=== PATIENT | male | born 1950 | race Hispanic/Latino ===

== ENCOUNTER → 2020-02-09 | Outpatient (CLI) | payer OTHER | END | disposition home or self-care (01) | LOC: SHCH 13:25 | PROVIDERS: ATTEND Internal Medicine Cardiovascular Disease | DX: I35.0 Nonrheumatic aortic (valve) stenosis (principal); Z95.2 Presence of prosthetic heart valve | CPT/HCPCS: 93306 ==

== ENCOUNTER → 2021-08-15 | Outpatient (CLI) | payer OTHER | END | disposition home or self-care (01) | LOC: SHCH 14:25 | PROVIDERS: ATTEND Internal Medicine Cardiovascular Disease | DX: I08.3 Combined rheumatic disorders of mitral, aortic and tricuspid valves (principal); Z95.3 Presence of xenogenic heart valve | CPT/HCPCS: 93306 ==

== ENCOUNTER 2024-07-29 09:00 | Emergency (ER) | payer OTHER ==
[~2024-07-29] VITALS: Ht 167.6 cm; Wt 63.5 kg
--- NOTE | 2024-07-29 09:27 | EKG ---
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
[2024-07-29 09:40] LABS: BASOPHILS # (AUTO) 0.02 K/uL (0.00-0.20); BASOPHILS % (AUTO) 0.4 % (0.0-5.0); EOSINOPHILS # (AUTO) 0.05 K/uL (0.00-0.70); HEMATOCRIT 39.2 % (42-54); IMMATURE GRANULOCYTE ABSOLUTE 0.01 K/uL (0-1); LYMPHOCYTES # (AUTO) 1.6 K/uL (1.0-4.8); LYMPHOCYTES % (AUTO) 30.8 % (21.0-51.0); MEAN CORPUSCULAR HEMOGLOBIN 31.3 pg (27.0-33.0); MEAN CORPUSCULAR HGB CONC 32.4 g/dL (32.0-36.0); MEAN CORPUSCULAR VOLUME 96.6 fL (79-99); MONOCYTES # (AUTO) 0.4 K/uL (0.1-1.0); NEUTROPHILS # (AUTO) 3.1 K/uL (1.8-7.7); NEUTROPHILS % (AUTO) 59.6 % (40.0-77.0); PLATELET COUNT (AUTO) 162 K/uL (130-400); RED BLOOD CELL COUNT(AUTO) 4.06 MIL/uL (4.50-6.20); RED CELL DISTRIBUTION WIDTH 15.1 % (11.0-15.5); WHITE BLOOD COUNT (AUTO) 5.3 K/uL (4.8-10.8)
--- NOTE | 2024-07-29 09:43 | HMCIMG ---
Exam Type: CT HEAD/BRAIN W/O CONTRAST Clinical Information: dizzy Comparison: None CT Dose Index (CTDI): 57.33 mGy Dose Length Product (DLP): 956.79 total mGy-cm Findings: The examination shows atrophy. There is low attenuation throughout the periventricular white matter locations, consistent with chronic small vessel ischemic changes. No acute intra- or extra-axial fluid collections are seen. There is no evidence of acute or chronic hemorrhage. There is no mass effect or shift of midline structures. There are no areas to suggest acute infarct. The skull windows show no significant abnormalities. IMPRESSION: 1. ATROPHY AND CHRONIC SMALL VESSEL ISCHEMIC CHANGES. This study was performed using dose reduction techniques to include automated exposure control and/or adjustment of the mA and/or kV according to patient size.
[2024-07-29] MEDS: LACTATED RINGERS 1000ML 1,000 ML IV ONE (09:46)
[2024-07-29 09:50] LABS: CREATININE 1.1 mg/dL (0.5-1.3)
--- NOTE | 2024-07-29 09:53 | ERN ---
General Chief Complaint: Dizzy/Light Headed Stated Complaint: DIZZINESS Time Seen by MD: 09:04 History of Present Illness Initial Comments 74-year-old male who presents for generalized weakness. According to family, yesterday he had an episode where he was possibly hallucinating. He said the saw things on the [place]. He had no other signs of stroke or no focal neurologic deficits. No slurring of words. The episode was brief. This morning he was back to his baseline mentation, but the family says that he was weaker than usual. The patient was no complaints. He answers all questions appropriately. He denies any headache or vision changes. He denies any focal neurologic deficits. Denies any dizziness. He denies any chest pain. Family and patient reports that he has been in his otherwise normal state of health recently. Allergies: Coded Allergies: No Known Allergies (Unverified Allergy, Unknown, 07/29/24) Past Medical History Past Medical History: High Cholesterol Past Surgical History: Other ROS Dictation VITAL SIGNS: Reviewed. GENERAL APPEARANCE: Alert, oriented x3, no acute distress, EYES: PERRL, pink conjunctivas, eyelid no trauma, anterior chamber clear. EARS: Pinnas intact and no signs of trauma or erythema. Ear canals clear and no discharge. TMs no erythema. NOSE: No discharge, no bleeding. OROPHARYNX: Mouth normal, teeth no caries, tongue pink. Pharynx clear, no erythema. Tonsils no exudates, no abscesses noted. Mucous membrane moist. NECK: Supple, non-tender, no thyromegaly, no masses, no JVD, no bruits. BREAST: Deferred. CHEST: No tenderness, no crepitus, no paradoxical movement, no retractions. LUNGS: Clear, well-ventilated, symmetric, no rales, no wheezing, no rhonchi, no stridor, good breath sounds bilaterally. HEART: Regular rate, regular rhythm, no murmur, no gallops. VASCULAR: No peripheral edema. ABDOMEN: Soft, positive bowel sounds, nondistended, no guarding, nontender, no rebound, no masses no hepatomegaly, no splenomegaly, no Ortez's sign, no hernias. RECTAL: Deferred. GENITAL: Deferred. NEUROLOGICAL: Normal speech, gross motor function intact, gross sensory function intact. MUSCULOSKELETAL: Neck nontender, full range of motion, back nontender, full range of motion. EXTREMITIES: Nontender, full range of motion. SKIN: Color pink, dry, no turgor, no rash, no lacerations, no abrasions, no contusions. LYMPHATICS: Deferred. Physical Exam Physical Exam Dictation CONSTITUTIONAL: No chills, no fever, no weakness, no diaphoresis, no malaise. HEAD/FACE: No signs of trauma. EENT: No eye pain, no blurred vision, no tearing, no double vision, no ear pain, no ear discharge, no nose pain, no nasal congestion, no throat pain, no throat swelling, no mouth pain. RESPIRATORY: No cough, no orthopnea, no SOB, no stridor, no wheezing. CARDIOVASCULAR: No chest pain, no edema, no palpitations, no syncope. GASTROINTESTINAL/ABDOMINAL: No abdominal pain, no constipation, no diarrhea, no nausea, no vomiting. GENITOURINARY: No abnormal discharge, no dysuria, no frequent urination, no hematuria. No complaints of pain in the genitals. MUSCULOSKELETAL: No back pain, no gout, no joint pain, no joint swelling, no muscle pain, no muscle stiffness, no neck pain. INTEGUMENTARY: No change in color, no change in hair/nails, no dryness, no lesion, no lumps, no rash. NEUROLOGICAL/PSYCH: Weakness dizziness HEMATOLOGIC/LYMPHATIC: Not anemic, no history of blood clots, no apparent bleeding, no bruising, glands not swollen. All Systems Negative, Except as Noted. Results Laboratory and Microbiology Lab and Micro Result Laboratory Tests Test 07/29/24 09:32 07/29/24 11:37 White Blood Count 5.3 K/uL (4.8-10.8) Red Blood Count 4.06 MIL/uL (4.50-6.20) L Hemoglobin 12.7 g/dL (14.0-18.0) L Hematocrit 39.2 % (42-54) L Mean Corpuscular Volume 96.6 fL (79-99) Mean Corpuscular Hemoglobin 31.3 pg (27.0-33.0) Mean Corpuscular Hemoglobin Concent 32.4 g/dL (32.0-36.0) Red Cell Distribution Width 15.1 % (11.0-15.5) Platelet Count 162 K/uL (130-400) Mean Platelet Volume 9.8 fL (7.5-10.5) Immature Granulocyte % (Auto) 0.2 % (0-1) Neutrophils (%) (Auto) 59.6 % (40.0-77.0) Lymphocytes (%) (Auto) 30.8 % (21.0-51.0) Monocytes (%) (Auto) 8.0 % (3.0-13.0) Eosinophils (%) (Auto) 1.0 % (0.0-8.0) Basophils (%) (Auto) 0.4 % (0.0-5.0) Neutrophils # (Auto) 3.1 K/uL (1.8-7.7) Lymphocytes # (Auto) 1.6 K/uL (1.0-4.8) Monocytes # (Auto) 0.4 K/uL (0.1-1.0) Eosinophils # (Auto) 0.05 K/uL (0.00-0.70) Basophils # (Auto) 0.02 K/uL (0.00-0.20) Absolute Immature Granulocyte (auto 0.01 K/uL (0-1) Nucleated Red Blood Cells 0.0 % (0.0-0.19) Sodium Level 140 mmol/L (136-145) Potassium Level 4.0 mmol/L (3.5-5.1) Chloride Level 102 mmol/L (101-111) Carbon Dioxide Level 33 mmol/L (21-32) H Blood Urea Nitrogen 12 mg/dL (7-18) Creatinine 1.1 mg/dL (0.5-1.3) Glomerular Filtration Rate Calc 71 mL/min (>90) Random Glucose 206 mg/dL (70-105) H Lactic Acid Level 1.3 mmol/L (0.8-2.5) Total Calcium 9.2 mg/dL (8.5-10.1) Total Creatine Kinase 151 U/L (21-232) Troponin I High Sensitivity 13.2 ng/L (4-75) Urine Color COLORLESS (YELLOW) Urine Appearance CLEAR (CLEAR) Urine pH 7.0 (5.0-8.0) Urine Specific [place] 1.005 (1.001-1.031) Urine Protein NEGATIVE mg/dL (NEGATIVE) Urine Glucose (UA) 200 mg/dL (NEGATIVE) H Urine Ketones NEGATIVE mg/dL (NEGATIVE) Urine Occult Blood NEGATIVE (NEGATIVE) Urine Nitrate NEGATIVE (NEGATIVE) Urine Bilirubin NEGATIVE mg/dL (NEGATIVE) Urine Urobilinogen 0.2 mg/dL (0.2-1.0) Urine Leukocyte Esterase NEGATIVE Rojelio/uL Urine RBC 0-1 /HPF (0-1) Urine WBC 0-1 /HPF (0-1) Urine Squamous Epithelial Cells RARE /HPF (0-2) Urine Bacteria None /HPF (None Seen) MDM CC: Episode of dizziness Historian: Patient and family Comorbidities: Advanced age, dyslipidemia, likely mild dementia Differential diagnosis: Electrolyte abnormalities, ACS, dehydration, other Vital signs: Stable, remained stable in the ER Clinical exam is unremarkable. Cranial nerves are intact no signs of stroke. He was GCS 15 currently. cardiac exam is unremarkable. EKG: Sinus rhythm rate of 80 left axis deviation good R-wave progression. Left bundle-branch block morphology. No STEMI. Independently interpreted by me. Labs including a CBC, BNP, lactic acid, CK, troponin, urinalysis are all unremarkable CT head without contrast was independently interpreted by me. Unremarkable. Chest x-ray is unremarkable independent interpretation. Patient received IV fluids here in the ER. I did offer to admit the patient and observe him since he was having a dizziness unknown origin, but patient reports up with a fluid bolus he was ambulatory is walking around the department he reports he feels much better. He wants to go h ome. He was no concerning findings on his workup right now. We will DC. ED Course Orders Procedure Category Date Status Time Cardiac Panel LAB 07/29/24 Complete 09:13 Cbc With Differential LAB 07/29/24 Complete 09:13 Basic Metabolic Panel LAB 07/29/24 Complete 09:13 Urinalysis Profile LAB 07/29/24 Complete 09:13 Lactated Ringers PHA 07/29/24 Complete 1000ml (Lactated 09:30 12 Lead Ekg Tracing- EKG 07/29/24 Resulted Technical 09:13 Lactic Acid LAB 07/29/24 Complete 09:13 Blood Cult AMRITA 07/29/24 In Process 09:13 Ct Head/Brain W/O CT 07/29/24 Resulted Contrast 09:13 Chest 1vw RAD 07/29/24 Resulted 10:26 Current Medications Medications (Trade) Dose Ordered Sig/Ann Marie Route PRN Reason Start Time Stop Time Status Last Admin Dose Admin Lactated Ringer's 1,000 ml @ 0 mls/hr ONCE ONCE IV 4/12/25 09:30 07/29/24 09:31 DC 07/29/24 09:46 Vital Signs Date Time Temp Pulse Resp B/P (MAP) Pulse Ox O2 Delivery O2 Flow Rate FiO2 07/29/24 11:53 98.1 79 16 153/82 98 Room Air* 0 21 07/29/24 11:52 98.2 55 14 98/52 96 Room Air* 0 21 07/29/24 09:47 98.2 80 16 98 Room Air* 0 21 07/29/24 09:02 97.3 81 20 183/82 99 Room Air DX & DISP Disposition: Discharge Departure Impression: Primary Impression: Dizziness Condition: Stable Additional Instructions: Your vital signs are stable. Your blood work is stable. The chest x-ray and EKG are normal. The CT scan of the brain is normal. Please follow up with your primary doctor. Return to the emergency department as needed. Referrals: KEL RIOS (PCP) HONORIO DISLA DO Jul 29, 2024 09:53
--- NOTE | 2024-07-29 11:24 | HMCIMG ---
Exam Type: CHEST 1VW Clinical Information: dizzy Comparison: None Findings: The lungs are clear of infiltrates. The heart is normal in size. The bony and soft tissue structures of the chest are unremarkable. Impression: Clear lungs.
[2024-07-29 11:53] VITALS: BP 153/82; PULSE 79; RESP 16; TEMP 98.1; O2SAT 98
[2024-07-29 12:12] LABS: APPEARANCE,URINE CLEAR (CLEAR); BILIRUBIN,URINE NEGATIVE (NEGATIVE); COLOR,URINE COLORLESS (YELLOW); GLUCOSE, URINE (UA) 200 mg/dL (NEGATIVE); KETONES,URINE NEGATIVE (NEGATIVE); LEUKOCYTE ESTERASE ,URINE NEGATIVE Leu/uL (NEGATIVE); NITRATE,URINE NEGATIVE (NEGATIVE); OCCULT BLOOD,URINE NEGATIVE (NEGATIVE); PROTEIN,URINE NEGATIVE (NEGATIVE); UROBILINOGEN,URINE 0.2 mg/dL (0.2-1.0)
[2024-07-29 12:25] LABS: ADD UA MICROSCOPIC YES
[2024-07-29 12:34] LABS: RBC,URINE 0-1 /HPF (0-1); SQUAMOUS EPITHELIAL CELL,UR RARE /HPF (0-2); WBC,URINE 0-1 /HPF (0-1)
== END 2024-07-29 12:20 | disposition home or self-care (01) ==
LOC: EDH 09:00
DX: R42 Dizziness and giddiness (principal); R53.1 Weakness; E78.00 Pure hypercholesterolemia, unspecified
CPT/HCPCS: 99285; 96360; 70450; 71045; 82550; 84484; 80048; 85025; 87040 ×2; 83605; 81001; 36415; 93005; J7120

== ENCOUNTER 2024-10-05 00:27 | Inpatient (IN) | payer OTHER ==
[~2024-10-05] VITALS: Ht 167.6 cm; Wt 67.1 kg
[~2024-10-05 00:27] MED LIST: ASPI-1443 PO; ATOR40TA69 PO; DAPA10TA PO; DONE5TAB33 PO; GABA300C PO; LISI5TAB21 PO; MECO10005 PO; METF-446 PO; PIOG30TA70 PO; PRED20TA3 PO
[2024-10-05] MEDS ORDERED: acetaMINOPHEN 650 MG/20.3 ML UDCUP PEG ONE (01:00)
[2024-10-05] MEDS: 0.9%NACL 1000ML 2,040 ML IV ONE (01:07)
[2024-10-05] MEDS: cefTRIAXone 1G VIAL IVPB ONE (01:07)
[2024-10-05 01:09] LABS: RAPID GROUP A STREP negative (NEGATIVE)
--- NOTE | 2024-10-05 01:11 | ERN ---
General Chief Complaint: Altered Mental Status Stated Complaint: FEVER, ALTERED MENTAL STATUS Time Seen by MD: 00:49 History of Present Illness Initial Comments Patient is a 74-year-old male with a history of hypercholesterolemia hypertension neuropathy dementia and diabetes who comes in because of an inability to stand and decreased mental acuity per family members. When he arrived in the ED he was noted to be febrile and tachycardic and was declared a sepsis alert. Patient is answering questions and following commands on arrival in the ED. He was given 800 cc of IV fluids in transit. Past medical history includes a September 21 admission to this hospital for a TIA associated with left-sided weakness. Timing/Duration: 24 hours Allergies: Coded Allergies: No Known Allergies (Unverified Allergy, Unknown, 07/29/24) Home Meds Active Scripts Prednisone (Prednisone) 20 Mg Tablet, 40 MG PO DAILY, #7 TAB Prov:TIMOTHY VENEGAS MD 09/28/24 Reported Medications Mecobalamin (B12 Active) 1,000 Mcg Tab.chew, 1 TAB PO DAILY for 30 Days, #30 TAB 0 Refills 09/22/24 Aspirin (Aspirin EC) 81 Mg Tablet.dr, 81 MG PO DAILY, TAB 09/22/24 Dapagliflozin Propanediol (Farxiga) 10 Mg Tablet, 10 MG PO DAILY, TAB 09/22/24 Atorvastatin Calcium (LIPITOR) 40 Mg Tablet, 40 MG PO HS for CHOLESTEROL, TAB 09/22/24 Lisinopril (Lisinopril) 5 Mg Tablet, 5 MG PO DAILY for HIGH BLOOD PRESSURE, TAB 09/22/24 Pioglitazone HCl (Pioglitazone HCl) 30 Mg Tablet, 30 MG PO DAILY, TAB 09/22/24 Gabapentin (Neurontin) 300 Mg Capsule, 300 MG PO BID for NEUROPATHY, CAP 09/22/24 Donepezil HCl (Donepezil HCl) 5 Mg Tablet, 5 MG PO HS for DEMENTIA, TAB 09/22/24 Metformin HCl (Metformin HCl) 1,000 Mg Tablet, 1000 MG PO BID for DIABETES, TAB 09/22/24 Past Medical History Past Medical History: Diabetes-Type II, High Cholesterol, Heart Disease, Hypertension Past Surgical History: CABG Surgical History Other: BACK SURGERY Constitutional: (+) fever EENTM: (-) eye pain, (-) blurred vision, (-) tearing, (-) double vision, (-) ear pain, (-) ear discharge, (-) nose pain, (-) nose congestion, (-) throat pain, (-) Throat swelling, (-) mouth pain, (-) tooth pain, (-) mouth swelling, (-) other documentation Respiratory: (-) cough, (-) orthopnea, (-) short of breath, (-) stridor, (-) wheezing, (-) other documentation Cardiovascular: (-) chest pain, (-) edema, (-) palpitations, (-) syncope, (-) dyspnea on exertion, (-) other documentation Gastrointestinal/Abdominal: (-) nausea, (-) vomiting, (-) diarrhea, (-) abdominal pain, (-) abdominal distention, (-) constipation, (-) rectal bleeding, (-) dark stool/melena, (-) other documentation Musculoskeletal: (-) Neck pain, (-) back pain, (-) Flank Pain, (-) joint pain, (-) joint swelling, (-) muscle pain, (-) muscle stiffness, (-) gout, (-) other documentation Skin: (-) laceration, (-) contusion, (-) abrasion, (-) abscess, (-) rash, (-) change in color, (-) change in hair, (-) change in nails, (-) diaphoresis, (-) dryness, (-) other documentation Neuro: (+) altered mental status Psych: (-) depression, (-) suicidal ideation, (-) anxiety, (-) emotional problems, (-) auditory hallucinations, (-) visual hallucinations Physical Exam General Appearance: (+) no apparent distress Orientation: (+) alert Orientation Comment Patient knows he is in the hospital patient follows commands answers questions. 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 nml as tested IVF Sepsis Management IVF Sepsis Management BMI >30kg/m2?: No IVF calculated by IBW?: No Results Laboratory and Microbiology Lab and Micro Result Laboratory Tests Test 10/05/24 00:57 10/05/24 00:58 10/05/24 02:15 10/05/24 02:39 White Blood Count 9.7 K/uL (4.8-10.8) Red Blood Count 4.15 MIL/uL (4.50-6.20) L Hemoglobin 13.2 g/dL (14.0-18.0) L Hematocrit 39.3 % (42-54) L Mean Corpuscular Volume 94.7 fL (79-99) Mean Corpuscular Hemoglobin 31.8 pg (27.0-33.0) Mean Corpuscular Hemoglobin Concent 33.6 g/dL (32.0-36.0) Red Cell Distribution Width 14.4 % (11.0-15.5) Platelet Count 96 K/uL (130-400) L Mean Platelet Volume 10.4 fL (7.5-10.5) Immature Granulocyte % (Auto) 0.6 % (0-1) Neutrophils (%) (Auto) 90.2 % (40.0-77.0) H Lymphocytes (%) (Auto) 6.1 % (21.0-51.0) L Monocytes (%) (Auto) 2.8 % (3.0-13.0) L Eosinophils (%) (Auto) 0.2 % (0.0-8.0) Basophils (%) (Auto) 0.1 % (0.0-5.0) Neutrophils # (Auto) 8.7 K/uL (1.8-7.7) H Lymphocytes # (Auto) 0.6 K/uL (1.0-4.8) L Monocytes # (Auto) 0.3 K/uL (0.1-1.0) Eosinophils # (Auto) 0.02 K/uL (0.00-0.70) Basophils # (Auto) 0.01 K/uL (0.00-0.20) Absolute Immature Granulocyte (auto 0.06 K/uL (0-1) Nucleated Red Blood Cells 0.0 % (0.0-0.19) White Cell Morphology Comment CONSISTENT W/DIFF Platelet Morphology PLT CLUMPS PRESENT Sodium Level 136 mmol/L (136-145) Potassium Level 4.6 mmol/L (3.5-5.1) Chloride Level 97 mmol/L (101-111) L Carbon Dioxide Level 27 mmol/L (21-32) Blood Urea Nitrogen 24 mg/dL (7-18) H Creatinine 1.3 mg/dL (0.5-1.3) Glomerular Filtration Rate Calc 58 mL/min (>90) Random Glucose 176 mg/dL (70-105) H Lactic Acid Level 2.5 mmol/L (0.8-2.5) 1.4 mmol/L (0.8-2.5) Total Calcium 9.0 mg/dL (8.5-10.1) Total Creatine Kinase 86 U/L (21-232) # Troponin I High Sensitivity 36 ng/L (4-75) Influenza Type A Antigen Negative For Type A Influenza Type B Antigen Negative For Type B SARS-CoV-2 Antigen (Rapid) PRESUMPTIVE NEGATIVE Group A Streptococcus Rapid negative (NEGATIVE) Urine Color LIGHT-YELLOW (YELLOW) Urine Appearance CLEAR (CLEAR) Urine pH 6.5 (5.0-8.0) Urine Specific [place] 1.035 (1.001-1.031) Urine Protein 50 mg/dL (NEGATIVE) H Urine Glucose (UA) >=1000 mg/dL (NEGATIVE) H Urine Ketones 40 mg/dL (NEGATIVE) H Urine Occult Blood NEGATIVE (NEGATIVE) Urine Nitrate NEGATIVE (NEGATIVE) Urine Bilirubin NEGATIVE mg/dL (NEGATIVE) Urine Urobilinogen 2.0 mg/dL (0.2-1.0) H Urine Leukocyte Esterase NEGATIVE Rojelio/uL Urine RBC 0-1 /HPF (0-1) Urine WBC 0-1 /HPF (0-1) Urine Bacteria RARE /HPF (None Seen) Test 10/05/24 04:33 10/05/24 04:52 Lactic Acid Level 1.3 mmol/L (0.8-2.5) Procalcitonin 1.69 ng/mL (0.05-0.5) H White Blood Count 13.2 K/uL (4.8-10.8) #H Red Blood Count 3.58 MIL/uL (4.50-6.20) L Hemoglobin 11.2 g/dL (14.0-18.0) L Hematocrit 34.4 % (42-54) L Mean Corpuscular Volume 96.1 fL (79-99) Mean Corpuscular Hemoglobin 31.3 pg (27.0-33.0) Mean Corpuscular Hemoglobin Concent 32.6 g/dL (32.0-36.0) Red Cell Distribution Width 14.5 % (11.0-15.5) Platelet Count 88 K/uL (130-400) L Mean Platelet Volume 10.2 fL (7.5-10.5) Immature Granulocyte % (Auto) 0.8 % (0-1) Neutrophils (%) (Auto) 86.9 % (40.0-77.0) H Lymphocytes (%) (Auto) 5.1 % (21.0-51.0) L Monocytes (%) (Auto) 7.0 % (3.0-13.0) Eosinophils (%) (Auto) 0.0 % (0.0-8.0) Basophils (%) (Auto) 0.2 % (0.0-5.0) Neutrophils # (Auto) 11.5 K/uL (1.8-7.7) H Lymphocytes # (Auto) 0.7 K/uL (1.0-4.8) L Monocytes # (Auto) 0.9 K/uL (0.1-1.0) Eosinophils # (Auto) 0.00 K/uL (0.00-0.70) Basophils # (Auto) 0.02 K/uL (0.00-0.20) Absolute Immature Granulocyte (auto 0.10 K/uL (0-1) Nucleated Red Blood Cells 0.0 % (0.0-0.19) Sodium Level 136 mmol/L (136-145) Potassium Level 3.9 mmol/L (3.5-5.1) Chloride Level 103 mmol/L (101-111) Carbon Dioxide Level 23 mmol/L (21-32) Blood Urea Nitrogen 22 mg/dL (7-18) H Creatinine 1.2 mg/dL (0.5-1.3) Glomerular Filtration Rate Calc 64 mL/min (>90) Random Glucose 137 mg/dL (70-105) H Total Calcium 7.8 mg/dL (8.5-10.1) L Total Bilirubin 0.5 mg/dL (0.2-1.0) Aspartate Amino Transf (AST/SGOT) 18 U/L (10-37) Alanine Aminotransferase (ALT/SGPT) 17 U/L (12-78) Alkaline Phosphatase 66 U/L (50-136) Lactate Dehydrogenase 207 U/L (81-234) C-Reactive Protein, Quantitative 81.30 mg/L (0.5-3.0) H Total Protein 5.7 g/dL (6.0-8.3) L Albumin 2.8 g/dL (3.5-5.0) L MDM MDM: Differential diagnosis: CVA, TIA, dehydration, heat stroke, UTI, upper respiratory tract infection, intra-abdominal catastrophe, Rationale: Tests considered and ordered secondary to shared decision making include: Previous outside records reviewed: Old ER visits. Risk of complication and/or morbidity or mortality of patient management: None Medications-Per medication reconciliation Need for hospitalization: Patient does meet criteria for hospitalization. Need for emergency major/minor surgery: No There are no social concerns with this patient. Prescription drug management Prescriptions will include symptomatic care Patient's prior external medical records from other ER visits were reviewed by me as indicated. Prior testing and results from previous visits were reviewed. Prior tests were taken into account with medical decision making and resource utilization, independent historian/historians were used to obtain complete medical history. I independently interpreted the test that were performed, results were reviewed by me and considered findings on radiology if ordered. Sepsis protocol orders written for antibiotics written for patient written for full 30 cc/kilogram resuscitation. Initial serum lactate comes back 2.6 repeat lactate ordered. Repeat lactate after 2 L of fluid is normal. WBC is normal but there is a large left shift and high ratio of neutrophils two lymphocytes suggestive of heat stroke. Patient's nasal swabs are negative, patient's chest x-ray is normal, patient's urine is normal. Given lack of a source for patient's sepsis I have ordered a CT scan of the patient's head without contrast and abdomen with contrast. Patient is requiring pressor support to maintain an adequate blood pressure. Bedside ultrasound showed his IVC of two cm. Since the patient has arrived at the hospital till now he is alert oriented answers questions and follows commands. I have called the hospitalist to admit the patient and Total critical care time was 33 minutes. Excluding time for procedures. Management of critically ill patient with concern for acute decompensation. Management included interpretation of laboratory values and imaging, hemodynamics, time for consultation with consultants and admitting physician. Has been consulted. ED Course Orders Procedure Category Date Status Time Cbc With Differential LAB 10/05/24 Complete 00:49 Blood Cult AMRITA 10/05/24 In Process 00:49 Urinalysis Profile LAB 10/05/24 Complete 00:49 Culture Urine AMRITA 10/05/24 In Process 00:49 0.9%Nacl 1000ml (Ns PHA 10/05/24 Complete 1000ml) 01:00 Creatine Kinase, Total LAB 10/05/24 Complete 00:49 Troponin I High LAB 10/05/24 Complete Sensitivity 00:49 Lactic Acid LAB 10/05/24 Complete 00:49 Basic Metabolic Panel LAB 10/05/24 Complete 00:49 Ceftriaxone 1g Vial PHA 10/05/24 Complete (Rocephine 1g Inj) 01:00 Chest 1vw RAD 10/05/24 Taken 00:49 Acetaminophen 650mg PHA 10/05/24 Complete Elixir (Tylenol 650m 01:00 Influenza Type A & B, LAB 10/05/24 Complete Rapid 00:49 Rapid (Group A Strep) LAB 10/05/24 Complete 00:49 Covid19 (Sars Antigen LAB 10/05/24 Complete Rapid) 00:49 Acetaminophen 325 Tab PHA 10/05/24 Complete (Tylenol 325mg Tab 01:30 Lactic Acid LAB 10/05/24 Complete 02:37 Norepinephrin 4mg/Ns PHA 10/05/24 In Process 250ml (Levophed 4mg 03:00 Norepinephrin 4mg/Ns PHA 10/05/24 Complete 250ml (Levophed 4mg 03:00 Norepinephrin 4mg/Ns PHA 10/05/24 Complete 250ml (Levophed 4mg 02:45 Lactic Acid (Removed) LAB 10/05/24 Complete 04:13 0.9%Nacl 1000ml (Ns PHA 10/05/24 Complete 1000ml) 04:30 Procalcitonin LAB 10/05/24 Complete 04:29 Cbc With Differential LAB 10/05/24 Complete 04:41 Ct Head/Brain W/O CT 10/05/24 Taken Contrast 05:08 Ct Abdomen/Pelvis CT 10/05/24 Taken W/Wo Contras 05:08 Current Medications Medications (Trade) Dose Ordered Sig/Ann Marie Route PRN Reason Start Time Stop Time Status Last Admin Dose Admin Acetaminophen (TYLenol 325MG TAB) 650 mg ONCE ONCE PO 10/05/24 01:30 10/05/24 01:31 DC 10/05/24 01:16 Acetaminophen (TYLenol 650MG ELIXIR) 650 mg ONCE ONCE PEG 10/05/24 01:00 10/05/24 01:08 DC Ceftriaxone Sodium (ROCEphine 1G INJ) 1 gm ONCE ONCE IVPB 10/05/24 01:00 10/05/24 01:01 DC 10/05/24 01:07 Norepinephrine 250 ml @ As Directed STK-MED ONCE IV 10/05/24 02:45 10/05/24 02:45 DC Norepinephrine 250 ml @ 0 mls/hr PROTOCOL IV 10/05/24 03:00 10/05/24 02:57 DC Norepinephrine 250 ml @ 0 mls/hr PROTOCOL IV 10/05/24 03:00 11/04/24 02:59 10/05/24 03:01 Sodium Chloride 1,000 ml @ 0 mls/hr ONCE ONCE IV 10/05/24 04:30 10/05/24 04:31 DC 10/05/24 04:29 Sodium Chloride 2,040 ml @ 680 mls/hr ONCE ONCE IV 10/05/24 01:00 10/05/24 03:59 DC 10/05/24 01:07 Vital Signs Date Time Temp Pulse Resp B/P (MAP) Pulse Ox O2 Delivery O2 Flow Rate FiO2 10/05/24 05:25 88 21 122/55 98 Room Air* 0 10/05/24 04:20 90 13 125/56 99 Room Air* 0 10/05/24 03:20 99.7 93 19 118/55 99 Room Air* 0 10/05/24 03:16 92 21 125/65 98 Room Air* 0 10/05/24 03:01 72/40 10/05/24 02:45 95 19 72/40 98 Room Air* 0 10/05/24 01:50 114 17 92/55 97 Room Air* 0 10/05/24 01:20 123 23 104/60 97 Room Air* 0 10/05/24 01:16 102.9 10/05/24 01:05 102.9 124 20 131/67 96 Room Air* 0 21 10/05/24 00:29 125 22 126/74 96 Room Air 0 DX & DISP Disposition: Inpatient Departure Impression: Primary Impression: Sepsis Additional Impression: Heat stroke Condition: Stable Referrals: SELF,REFERRAL (PCP) ROCKY FLORES MD Oct 05, 2024 01:11
[2024-10-05 01:15] LABS: BASOPHILS # (AUTO) 0.01 K/uL (0.00-0.20); BASOPHILS % (AUTO) 0.1 % (0.0-5.0); EOSINOPHILS # (AUTO) 0.02 K/uL (0.00-0.70); EOSINOPHILS % (AUTO) 0.2 % (0.0-8.0); HEMATOCRIT 39.3 % (42-54); IMMATURE GRANULOCYTE ABSOLUTE 0.06 K/uL (0-1); LYMPHOCYTES # (AUTO) 0.6 K/uL (1.0-4.8); LYMPHOCYTES % (AUTO) 6.1 % (21.0-51.0); MEAN CORPUSCULAR HEMOGLOBIN 31.8 pg (27.0-33.0); MEAN CORPUSCULAR HGB CONC 33.6 g/dL (32.0-36.0); MEAN CORPUSCULAR VOLUME 94.7 fL (79-99); MONOCYTES # (AUTO) 0.3 K/uL (0.1-1.0); MONOCYTES % (AUTO) 2.8 % (3.0-13.0); NEUTROPHILS # (AUTO) 8.7 K/uL (1.8-7.7); NEUTROPHILS % (AUTO) 90.2 % (40.0-77.0); PLATELET COUNT (AUTO) 96 K/uL (130-400); RED BLOOD CELL COUNT(AUTO) 4.15 MIL/uL (4.50-6.20); RED CELL DISTRIBUTION WIDTH 14.4 % (11.0-15.5); WHITE BLOOD COUNT (AUTO) 9.7 K/uL (4.8-10.8)
[2024-10-05 01:16] VITALS: TEMP 102.9
[2024-10-05] MEDS: acetaMINOPHEN 325 MG TAB PO ONE (01:16)
[2024-10-05 01:22] LABS: CREATININE 1.3 mg/dL (0.5-1.3); POTASSIUM 4.6 mmol/L (3.5-5.1)
[2024-10-05 01:24] LABS: INFLUENZA TYPE A Negative For Type A (NEGATIVE); INFLUENZA TYPE B Negative For Type B (NEGATIVE)
[2024-10-05 01:35] LABS: PLATELET MORPHOLOGY PLT CLUMPS PRESENT; WBC MORPHOLOGY CONSISTENT W/DIFF
[2024-10-05 01:36] LABS: COVID19 (SARS ANTIGEN RAPID) PRESUMPTIVE NEGATIVE (NEGATIVE)
[2024-10-05 02:27] LABS: ADD UA MICROSCOPIC YES; APPEARANCE,URINE CLEAR (CLEAR); BILIRUBIN,URINE NEGATIVE (NEGATIVE); COLOR,URINE LIGHT-YELLOW (YELLOW); GLUCOSE, URINE (UA) >=1000 mg/dL (NEGATIVE); KETONES,URINE 40 mg/dL (NEGATIVE); LEUKOCYTE ESTERASE ,URINE NEGATIVE Leu/uL (NEGATIVE); NITRATE,URINE NEGATIVE (NEGATIVE); OCCULT BLOOD,URINE NEGATIVE (NEGATIVE); PH,URINE 6.5 (5.0-8.0); PROTEIN,URINE 50 mg/dL (NEGATIVE)
[2024-10-05 02:28] LABS: BACTERIA,URINE RARE /HPF (None Seen); RBC,URINE 0-1 /HPF (0-1); WBC,URINE 0-1 /HPF (0-1)
[2024-10-05] MEDS ORDERED: NOREPINEPHRIN 4MG/NS 250ML 250 ML IV SCH (03:00)
[2024-10-05] MEDS: NOREPINEPHRIN 4MG/NS 250ML 250 ML IV SCH (03:01)
[2024-10-05] MEDS: NOREPINEPHRIN 4MG/NS 250ML 250 ML IV ONE (03:01)
[2024-10-05] MEDS: 0.9%NACL 1000ML 1,000 ML IV ONE (04:29)
[2024-10-05 05:04] LABS: BASOPHILS # (AUTO) 0.02 K/uL (0.00-0.20); BASOPHILS % (AUTO) 0.2 % (0.0-5.0); HEMATOCRIT 34.4 % (42-54); LYMPHOCYTES # (AUTO) 0.7 K/uL (1.0-4.8); LYMPHOCYTES % (AUTO) 5.1 % (21.0-51.0); MEAN CORPUSCULAR HEMOGLOBIN 31.3 pg (27.0-33.0); MEAN CORPUSCULAR HGB CONC 32.6 g/dL (32.0-36.0); MEAN CORPUSCULAR VOLUME 96.1 fL (79-99); MONOCYTES # (AUTO) 0.9 K/uL (0.1-1.0); NEUTROPHILS # (AUTO) 11.5 K/uL (1.8-7.7); NEUTROPHILS % (AUTO) 86.9 % (40.0-77.0); PLATELET COUNT (AUTO) 88 K/uL (130-400); RED BLOOD CELL COUNT(AUTO) 3.58 MIL/uL (4.50-6.20); RED CELL DISTRIBUTION WIDTH 14.5 % (11.0-15.5); WHITE BLOOD COUNT (AUTO) 13.2 K/uL (4.8-10.8)
--- NOTE | 2024-10-05 05:24 | NUR ---
ACTING SECTION CHIEF DON DON AT BEDSIDE AT THIS TIME
[2024-10-05] MEDS ORDERED: GLUCAGON 1MG KIT 1 MG ML IM PRN (06:00)
[2024-10-05] MEDS ORDERED: ondanSETRON 4MG INJ IV PRN (06:00)
[2024-10-05] MEDS ORDERED: acetaMINOPHEN 325 MG TAB PO PRN (06:00)
[2024-10-05] MEDS ORDERED: PoTASSium chl 10% ELIXIR 20MEQ 20 MEQ/15 ML UDCUP PO PRN (06:00)
[2024-10-05] MEDS ORDERED: DEXTROSE 50%-WATER 50 ML DISP.SYRIN IV PRN (06:00)
[2024-10-05] MEDS ORDERED: PoTASSium chloRIDE 20MEQ/100ML 100 ML IV PRN (06:00)
[2024-10-05] MEDS ORDERED: IOHEXOL 350 MG/ML 100ML INFUS..BTL IV ONE (06:14)
--- NOTE | 2024-10-05 06:23 | NUR ---
GLORY EXTENSION SERVICE AGENT MADE AWARE OF CRITICAL CARE CONSULT
--- NOTE | 2024-10-05 06:24 | HP ---
[facility] H[facility]ORY [facility] PH[facility] Date of Service: Oct 05, 2024 Time of Service: 05:36 PCP:Alejo RODRIGUES HISTORY OF PRESENT ILLNESS: This is a 74-year-old male Chinese-speaking with past medical history of diabetes type 2, hyperlipidemia,dementia, coronary artery disease with CABG, hypertension and recent TIA with left sided weakness who was brought by EMS to the [facility] for complaints of fever,inability to stand and decreased mental acuity.Upon ER arrival V/S temperature 102.9, heart rate 125, respiration 22 and blood pressure 126/74 saturation 96% on room air. 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 Seen and examined patient in the ER awake,alert and coherent and following commands.Patient able to move all extremities except for his left leg with very limited movement which is reason for his previous hospital confinement.Patient denies headache,visual disturbance,chest pain,palpitation,cough,shortness of breath,rash,nausea,vomiting,abdominal pain and diarrhea.Patient also reports having mild neck pain . Patient blood pressure dropped 72/40 in the ER and patient was started on Levophed drip. Latest vital signs temperature 99.7, heart rate 88, blood pressure 122/55 saturation 98% on room air. Labs: WBC 9.7 to 13.2, neutrophils from 90-86 hemoglobin 13 to 11, hematocrit 39 to 34, platelet count 96 to 88. Sodium 136, chloride 97, BUN 24, creatinine 1.3, GFR 58 glucose 176 lactic acid 2.5 to 1.3 procalcitonin 1.69. Influenza type a and B negative, SARs COVID negative rapid a strep negative. Chest x-ray result is still pending at this time. CT head without contrast and CT abdomen and pelvis are still pending to be done at this time. While in the ER patient received fluid resuscitation of NS 30 mL/kilogram over 3 hours, Rocephin 1 g IV, Tylenol 650 mg p.o., patient was started on Levophed drip. We will admit patient to ICU for further medical management. REVIEW OF SYSTEMS CONSTITUTIONAL: Complain of fever and chills Denies night sweats. No unintentional weight loss reported. NEUROLOGICAL: Complain of generalized body weakness Denies headache, amaurosis fugax, sensory deficit, vertigo/spinning sensation, gait abnormalities, or tremors. ENT: No hearing loss, otalgia, otorrhea, rhinitis, rhinorrhea, hoarseness, or sore throat. CARDIOVASCULAR: Denies any exertional angina, dyspnea on exertion, orthopnea, paroxysmal nocturnal dyspnea, palpitations, life-threatening arrhythmias, claudication. PULMONARY: Denies any shortness of breath, cough, phlegm/sputum, hemoptysis, pleuritic chest pain. SLEEP: Denies morning headaches, daytime somnolence or napping. Denies difficulty falling asleep, staying asleep, waking from sleep. Denies knowledge of snoring. GASTROINTESTINAL: Denies any type of dysphagia to either liquids or solids. Denies nausea, vomiting, pyrosis, early satiety, abdominal pain, diarrhea, constipation, or changes in stool consistency or caliber. Denies coffee-ground emesis, hematemesis, hematochezia, or melanotic stools. GENITOURINARY: Denies frequency, urgency, nocturia, hematuria or incontinence (Storage/Irritative symptoms.) Low urinary stream, straining to void, urinary intermittency or hesitancy, splitting of the voiding stream, terminal dribbling. ENDOCRINOLOGIC: Denies polyuria, polydipsia, polyphagia or heat/cold intolerances. HEMATOLOGIC: Denies thrombophilia/previous clots, or coagulopathy/bleeding disorders. ONCOLOGIC: Denies personal history of malignancy. DERMATOLOGIC: Denies rashes or pruritus. PSYCHIATRIC: Denies any suicidal or homicidal ideation. Denies hallucinations. PAST MEDICAL HISTORY: [ diabetes type 2, hyperlipidemia,dementia, coronary artery disease with CABG, hypertension ] PAST SURGICAL HISTORY: [ CABG and back surgery] PAST SOCIAL HISTORY: [ Patient lives with . Patient denies alcohol tobacco and recreational drug use ] FAMILY HISTORY: [Noncontributory ] Coded Allergies: No Known Allergies (Unverified Allergy, Unknown, 07/29/24) PHYSICAL EXAM GENERAL APPEARANCE: The patient is awake, alert, and oriented, in no acute cardiopulmonary distress. NEUROLOGICAL: Cranial nerves II-XII grossly intact. Motor is 5/5 in bilateral upper and lower extremities proximal to distal. No sensory deficits. HEENT: Face is symmetric. Pupils are equal and reactive. Extraocular movements are intact. NECK: Supple. No JVD. No thyromegaly. No submental, submandibular, pre- /postauricular, occipital or supraclavicular lymphadenopathy. CHEST: Normal chest expansion. No Telemetry. LUNGS: Absence of any rales, rhonchi or any wheezing. CARDIOVASCULAR: Regular. S1 and S2 normal. No appreciable rubs, murmurs or gallops. ABDOMEN: Soft, nontender, and nondistended. There is no rebound, voluntary guarding, or rigidity. : Deferred. No Emmanuel. EXTREMITIES: Non-edematous and not cyanotic. No clubbing. Good capillary refill. SKIN: No skin breakdown. Vital Sign (Last 24 Hours) 10/05/24 10/05/24 03:20 05:25 Temp 99.7 Pulse 88 Resp 21 B/P (MAP) 122/55 Pulse Ox 98 O2 Delivery Room Air* O2 Flow Rate 0 FiO2 21 LABS: Laboratory: Test 10/05/24 04:52 10/05/24 04:33 10/05/24 02:15 10/05/24 00:58 Range/Units White Blood Count 13.2 #H 4.8-10.8 K/uL Red Blood Count 3.58 L 4.50-6.20 MIL/uL Hemoglobin 11.2 L 14.0-18.0 g/dL Hematocrit 34.4 L 42-54 % Mean Corpuscular Volume 96.1 79-99 fL Mean Corpuscular Hemoglobin 31.3 27.0-33.0 pg Mean Corpuscular Hemoglobin Concent 32.6 32.0-36.0 g/dL Red Cell Distribution Width 14.5 11.0-15.5 % Platelet Count 88 L 130-400 K/uL Mean Platelet Volume 10.2 7.5-10.5 fL Immature Granulocyte % (Auto) 0.8 0-1 % Neutrophils (%) (Auto) 86.9 H 40.0-77.0 % Lymphocytes (%) (Auto) 5.1 L 21.0-51.0 % Monocytes (%) (Auto) 7.0 3.0-13.0 % Eosinophils (%) (Auto) 0.0 0.0-8.0 % Basophils (%) (Auto) 0.2 0.0-5.0 % Neutrophils # (Auto) 11.5 H 1.8-7.7 K/uL Lymphocytes # (Auto) 0.7 L 1.0-4.8 K/uL Monocytes # (Auto) 0.9 0.1-1.0 K/uL Eosinophils # (Auto) 0.00 0.00-0.70 K/uL Basophils # (Auto) 0.02 0.00-0.20 K/uL Absolute Immature Granulocyte (auto 0.10 0-1 K/uL Nucleated Red Blood Cells 0.0 0.0-0.19 % Lactic Acid Level 1.3 0.8-2.5 mmol/L Procalcitonin 1.69 H 0.05-0.5 ng/mL Urine Color LIGHT-YELLOW YELLOW Urine Appearance CLEAR CLEAR Urine pH 6.5 5.0-8.0 Urine Specific Rapidan 1.035 H 1.001-1.031 Urine Protein 50 H NEGATIVE mg/dL Urine Glucose (UA) >=1000 H NEGATIVE mg/dL Urine Ketones 40 H NEGATIVE mg/dL Urine Occult Blood NEGATIVE NEGATIVE Urine Nitrate NEGATIVE NEGATIVE Urine Bilirubin NEGATIVE NEGATIVE mg/dL Urine Urobilinogen 2.0 H 0.2-1.0 mg/dL Urine Leukocyte Esterase NEGATIVE NEGATIVE Rojelio/uL Urine RBC 0-1 0-1 /HPF Urine WBC 0-1 0-1 /HPF Urine Bacteria RARE None Seen /HPF Troponin I High Sensitivity 36 4-75 ng/L Influenza Type A Antigen Negative For Type A NEGATIVE Influenza Type B Antigen Negative For Type B NEGATIVE SARS-CoV-2 Antigen (Rapid) PRESUMPTIVE NEGATIVE NEGATIVE Group A Streptococcus Rapid negative NEGATIVE Test 10/05/24 00:57 Range/Units White Cell Morphology Comment CONSISTENT W/DIFF Platelet Morphology PLT CLUMPS PRESENT Sodium Level 136 136-145 mmol/L Potassium Level 4.6 3.5-5.1 mmol/L Chloride Level 97 L 101-111 mmol/L Carbon Dioxide Level 27 21-32 mmol/L Blood Urea Nitrogen 24 H 7-18 mg/dL Creatinine 1.3 0.5-1.3 mg/dL Glomerular Filtration Rate Calc 58 >90 mL/min Random Glucose 176 H 70-105 mg/dL Total Calcium 9.0 8.5-10.1 mg/dL Total Creatine Kinase 86 # 21-232 U/L Current Medications Medications (Trade) Dose Ordered Sig/Ann Marie Route PRN Reason Start Time Stop Time Status Last Admin Dose Admin Norepinephrine 250 ml @ 0 mls/hr PROTOCOL IV 10/05/24 03:00 10/05/24 02:57 DC Norepinephrine 250 ml @ 0 mls/hr PROTOCOL IV 10/05/24 03:00 11/04/24 02:59 10/05/24 03:01 25.5 MLS/HR DIAGNOSTICS / RADIOLOGY: [ ] ASSESSMENT: Severe sepsis with organ dysfunction of unknown source POA Septic shock POA Normocytic normochromic anemia POA Acute thrombocytopenia POA Acute renal insufficiency POA Uncontrolled diabetes POA Coronary artery disease with CABG POA 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 b.i.d. for GI prophylaxis We will replace electrolytes as needed per protocol We will start on insulin sliding scale AC & HS with hypoglycemia protocol We will add prn medication for fever,pain,cough , nausea and vomiting We will reconcile home meds once medlist available We will seek critical care consultation We will follow up CT head and abdomen result We will request labs in am Further orders to follow depending on above results Case discussed with attending physician and came up with above treatment and plan of care. ADVANCED CARE PLANNING 1. Which of the following were discussed? Hospice Care - No Therapeutic options - Yes Advance Directives - No Other discussions - 2. Discussed with who? Patient and 3. Voluntary nature of this service was explained to the patient? Yes 4. Amount of time spent - 27 5. Reviewed by Physician? (if this service was performed by NPP) Yes Patient seen and examined by me. Agree with note by A P MECHANIC SEE ADDITIONAL ORDERS PER CHART DISCUSSED WITH NURSING STAFF KINGSTON ALEGRE [employer]GSHEAD PRESS OPERATOR Oct 05, 2024 06:24
[2024-10-05 06:53] LABS: ALBUMIN 2.8 g/dL (3.5-5.0); BILIRUBIN,TOTAL 0.5 mg/dL (0.2-1.0); CREATININE 1.2 mg/dL (0.5-1.3); POTASSIUM 3.9 mmol/L (3.5-5.1); TOTAL PROTEIN, SERUM 5.7 g/dL (6.0-8.3)
[2024-10-05] MEDS: DOXYCYCLINE 100MG+NS 250ML 250 ML IV SCH (06:54)
[2024-10-05] MEDS: miDODRine HCL 5 MG TABLET PO SCH (06:56)
[2024-10-05] MEDS: 0.9%NACL 1000ML 1,000 ML IV SCH (06:56)
--- NOTE | 2024-10-05 07:11 | NUR ---
REPORT GIVEN TO GILLES BOWMAN AT THIS TIME
[2024-10-05] MEDS: INSULIN humuLIN R 100 UNIT/ML 3ML SQ SCH (07:30)
--- NOTE | 2024-10-05 07:33 | NUR ---
STOPPED LEVOPHED.BP 155/71
--- NOTE | 2024-10-05 08:03 | CONS ---
[facility] CONSULTATION NOTE Date Patient Seen: Oct 05, 2024 Time of Visit: 08:03 Supervising Physician: Robbie Rivera MD Reason for Consultation: [CCM ] Primary Care Physician: Akash Pritchett Outpatient Specialists: [none Inpatient Consults: [[facility], Dr Montoya, Attending Physician: DR Dimas Bocanegra MD PROBLEM LIST: Severe sepsis with organ dysfunction, POA Septic shock POA, resolved Normocytic normochromic anemia POA Acute thrombocytopenia in the presence of sepsis POA R/O Rickettsia Acute renal insufficiency POA Hyperglycemia in the presence of type 2 diabetes mellitus, POA Moderate hypoalbuminemia, POA Glucosuria, POA Coronary artery disease with CABG POA Myelomalacia of the cord per MRI on 09/25/2024 POA 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 On arrival to the ED patient has a high fever of 102.9 heart rate of 125 respiratory rate of 22 and blood pressure was 126/74 saturating 96%. In the ED patient received the 30 mL/kilogram bolus and was started empirically on antibiotics with vancomycin, doxycycline and Rocephin. Overnight patient has a drop in blood pressure and Levophed was ordered by primary team and patient was upgraded to the ICU. We are consulted for critical care management. On assessment patient is awake alert and oriented x2. He is a poor historian and forgetful. He does report some chills generalized body weakness malaise and poor appetite. Denies any cough, shortness for breath, sore throat, nausea, vomiting or diarrhea. As per patient's she has not been six in the last few days and nobody around him has been recently ill. . Patient is off Levophed with a map of 90. He is stable saturating 99% on room air in no apparent distress. White count this morning of 13.2 H&H is 11.2/34.4 platelet count of 88 K. Neutrophils of 86.9. Chemistry BUN 22 creatinine 1.2 GFR of 64 with a glucose of 137 mg/dL total calcium of 7.8 CRP of 81.30 total protein of 5.7 albumin of 2.8. On urinalysis specific gravity is 1.035 elevated, urine protein 50, glucose is greater than 1000 ketones of 40 urobilinogen is 2.0. Patient is negative for influenza type a and B COVID-19 [address] st[address] throat. [address] CT no acute intracranial bleed seen atrophy with white matter changes. On CT abdomen and pelvis patient has a gallstone in the gallbladder. But no cholecystitis noted. Chest x-ray with no acute pulmonary infiltrates seen. On behalf of [facility] thank you for given us the opportunity to participate in the care of this patient. PAST MEDICAL HX: see above PAST SURGICAL HX: noncontributory SOCIAL HISTORY: No tobacco, ETOH, or illicit drug use Coded Allergies: No Known Allergies (Unverified Allergy, Unknown, 07/29/24) REVIEW OF SYSTEMS: 12 point ROS reviewed with patient. Pertinent positives mentioned above. Otherwise negative. PHYSICAL EXAM: GENERAL: alert, weak, awake oriented x 2, forgetful history of dementia HEENT: EOMI, Sclera non icteric, moist mucosa NECK: Supple, no JVD, trachea midline LUNGS: Clear breath sounds bilaterally. No wheezes HEART: Regular rate and rhythm. Normal S1 and S2, without murmurs ABD: Abdomen soft, nontender. Bowel sounds present EXT: No clubbing cyanosis or edema NEURO: Alert and oriented to person, follows commands Vital Signs (last 8hr) Date Time Temp Pulse Resp B/P (MAP) Pulse Ox O2 Delivery O2 Flow Rate FiO2 10/05/24 07:04 97.7 92 16 146/69 99 Room Air* 0 10/05/24 05:25 88 21 122/55 98 Room Air* 0 10/05/24 04:20 90 13 125/56 99 Room Air* 0 10/05/24 03:20 99.7 93 19 118/55 99 Room Air* 0 10/05/24 03:16 92 21 125/65 98 Room Air* 0 10/05/24 03:01 72/40 10/05/24 02:45 95 19 72/40 98 Room Air* 0 10/05/24 01:50 114 17 92/55 97 Room Air* 0 10/05/24 01:20 123 23 104/60 97 Room Air* 0 10/05/24 01:16 102.9 10/05/24 01:05 102.9 124 20 131/67 96 Room Air* 0 10/05/24 00:29 125 22 126/74 96 Room Air 0 LABS: Hematology Labs: Test 10/05/24 04:52 10/05/24 00:57 Range/Units White Blood Count 13.2 #H 4.8-10.8 K/uL Red Blood Count 3.58 L 4.50-6.20 MIL/uL Hemoglobin 11.2 L 14.0-18.0 g/dL Hematocrit 34.4 L 42-54 % Mean Corpuscular Volume 96.1 79-99 fL Mean Corpuscular Hemoglobin 31.3 27.0-33.0 pg Mean Corpuscular Hemoglobin Concent 32.6 32.0-36.0 g/dL Red Cell Distribution Width 14.5 11.0-15.5 % Platelet Count 88 L 130-400 K/uL Mean Platelet Volume 10.2 7.5-10.5 fL Immature Granulocyte % (Auto) 0.8 0-1 % Neutrophils (%) (Auto) 86.9 H 40.0-77.0 % Lymphocytes (%) (Auto) 5.1 L 21.0-51.0 % Monocytes (%) (Auto) 7.0 3.0-13.0 % Eosinophils (%) (Auto) 0.0 0.0-8.0 % Basophils (%) (Auto) 0.2 0.0-5.0 % Neutrophils # (Auto) 11.5 H 1.8-7.7 K/uL Lymphocytes # (Auto) 0.7 L 1.0-4.8 K/uL Monocytes # (Auto) 0.9 0.1-1.0 K/uL Eosinophils # (Auto) 0.00 0.00-0.70 K/uL Basophils # (Auto) 0.02 0.00-0.20 K/uL Absolute Immature Granulocyte (auto 0.10 0-1 K/uL Nucleated Red Blood Cells 0.0 0.0-0.19 % White Cell Morphology Comment CONSISTENT W/DIFF Platelet Morphology PLT CLUMPS PRESENT Erythrocyte Sedimentation Rate 7 0-20 MM/HR Chemistry Labs: Test 10/05/24 04:52 10/05/24 04:33 10/05/24 00:58 10/05/24 00:57 Range/Units Sodium Level 136 136-145 mmol/L Potassium Level 3.9 3.5-5.1 mmol/L Chloride Level 103 101-111 mmol/L Carbon Dioxide Level 23 21-32 mmol/L Blood Urea Nitrogen 22 H 7-18 mg/dL Creatinine 1.2 0.5-1.3 mg/dL Glomerular Filtration Rate Calc 64 >90 mL/min Random Glucose 137 H 70-105 mg/dL Total Calcium 7.8 L 8.5-10.1 mg/dL Total Bilirubin 0.5 0.2-1.0 mg/dL Aspartate Amino Transf (AST/SGOT) 18 10-37 U/L Alanine Aminotransferase (ALT/SGPT) 17 12-78 U/L Alkaline Phosphatase 66 50-136 U/L Lactate Dehydrogenase 207 81-234 U/L C-Reactive Protein, Quantitative 81.30 H 0.5-3.0 mg/L Total Protein 5.7 L 6.0-8.3 g/dL Albumin 2.8 L 3.5-5.0 g/dL Lactic Acid Level 1.3 0.8-2.5 mmol/L Procalcitonin 1.69 H 0.05-0.5 ng/mL Troponin I High Sensitivity 36 4-75 ng/L Total Creatine Kinase 86 # 21-232 U/L DIAGNOSTICS / RADIOLOGY RESULTS: [ [place] [id number] [place] [id number] IMAGING REPORT Signed PATIENT: SHANDA SALAS MR#: [id number] : 1950 SEX: M AGE: 74 LOCATION: [facility] ORDER 8 STATUS: ADM IN REPORT#: [id number] SERVICE REASON: ams ORDERING PHYSICIAN: ROCKY FLORES MD PROCEDURE: HEAD WO - CT HEAD/BRAIN W/O CONTRAST CT HEAD/BRAIN W/O CONTRAST HISTORY: Altered mental status COMPARISON: 10/05/2024 TECHNIQUE: Multiple sequential axial images of the head were obtained from the base of the skull through vertex. Patient was not given contrast through intravenous route. FINDINGS: The ventricles and extraventricular CSF spaces are dilated consistent with cerebral atrophy. Nonspecific white matter changes seen. There is no midline shift, mass effect or herniation. No acute intracranial bleed is seen. Visualized portion of the paranasal sinuses are grossly within normal limits. IMPRESSION: 1. No acute intracranial bleed is seen. 2. Atrophy with white matter changes. CT was performed with one or more following dose reduction techniques: automated exposure control, adjustment of the mA and kv according to patient's size, or use of a iterative reconstruction technique. DICTATED BY: KANG FISHER MD DATE: 10/05/24812 ELECTRONICALLY SIGNED BY: KANG FISHER MD DATE: 10/05/24816 ][place] [address] [place] [id number] IMAGING REPORT Signed PATIENT: SHANDA SALAS MR#: [id number] : 1950 SEX: M AGE: 74 LOCATION: [facility] ORDER 8 STATUS: ADM IN [facility] REPORT#: [id number] SERVICE 7 REASON: ams ORDERING PHYSICIAN: ROCKY FLORES MD PROCEDURE: ABD PELWWO - CT ABDOMEN/PELVIS W/WO CONTRAS CT ABDOMEN/PELVIS W/WO CONTRAS HISTORY: Altered mental status COMPARISON: None TECHNIQUE: Multiple sequential axial images of the abdomen and pelvis were obtained from the dome of the diaphragm through symphysis pubis. Patient was given 100 cc of Isovue through intravenous route. Oral contrast was not given. FINDINGS: No pleural effusion is seen bilaterally. There is no evidence of parenchymal disease or pulmonary nodule of the visualized lower lungs. Degenerative changes of the thoracolumbar spine are present. The heart is not enlarged. Postop changes are seen of the lower lumbar spine. Liver measured 15 cm. Gallstone is seen in the distended gallbladder. The liver, spleen, adrenal glands and pancreas are unremarkable. There is no evidence of hydronephrosis bilaterally. No evidence of renal stone is seen. Fecal material is seen in the colon. There are normal size retroperitoneal and mesenteric lymph nodes. No ascites is seen. Atherosclerotic changes are present. Pelvic sidewalls are symmetric bilaterally. Bladder is well distended without wall thickening. IMPRESSION: 1. Gallstone in the gallbladder. CT was performed with one or more following dose reduction techniques: automated exposure control, adjustment of the mA and kv according to patient's size, or use of a iterative reconstruction technique. DICTATED BY: KANG FISHER MD DATE: 10/05/24904 ELECTRONICALLY SIGNED BY: KANG FISHER MD DATE: 10/05/24909 [facility] [address] [place], [place] [id number] IMAGING REPORT Signed PATIENT: SHANDA SALAS MR#: [id number] : 1950 SEX: M AGE: 74 LOCATION: [facility] ORDER 005 STATUS: ADM IN REPORT#: [id number] SERVICE REASON: sepsis ORDERING PHYSICIAN: ROCKY FLORES MD PROCEDURE: CXR1VW - CHEST 1VW CHEST 1VW HISTORY: Sepsis COMPARISON: 09/21/2024 FINDINGS: A frontal projection of the chest was obtained. No acute pulmonary infiltrates is seen. The heart is normal in size. Degenerative changes are seen. Aortic calcifications are seen. IMPRESSION: 1. No acute pulmonary infiltrate is seen. DICTATED BY: KANG FISHER MD DATE: 10/05/241211 ELECTRONICALLY SIGNED BY: KANG FISHER MD DATE: 10/05/241215 PLAN DC Levophed Downgrade from ICU to med surge with tele Rickettsia panel Continue broad-spectrum antibiotics including doxycycline Follow platelet count NEURO: Minimize central acting medications as possible. Fall Precautions. Well lighted room through the day and minimize interruptions through the night to prevent acute delirium. PULMONARY: Supplemental 02 as needed Titrate Fio2 to keep Spo2 > or = 90% DuoNebs and CPT as needed IS hourly while awake for pulmonary hygiene Out of bed to chair as tolerated CARDIOVASCULAR: Follow hemodynamics. Titrate vasopressor to keep MAP >65 or systolic blood pressure >95mmHg DRIPS: [Off Levophed ] LINES: [PIV ] GI & NUTRITION: Continue nutritional support Aspirations precautions Prokinetic agents and laxatives as needed KIDNEYS & ELECTROLYTES: Strict monitoring of intake and output Daily weights Avoid nephrotoxic agents Monitor electrolytes and replace as needed Goal urine output of 30mL/hr or 0.5mL/kg/hr Urine output: [ ] Fluid Balance: [ ] ENDOCRINE: Maintain blood glucose between 100-180 at all times. Insulin sliding scale for blood glucose management INFECTIOUS DISEASE: Trend temperature. Singh-culture if febrile. Micro: [ ] Antibiotics: [ ] HEMATOLOGY & COAGULATION: Monitor H&H. Keep Hgb > 7 Transfuse 1 unit of PRBC for Hgb < 7 Transfuse 1 pack of platelets of platelets < 20, 000 Watch for any signs and symptoms of bleeding SKIN: Pressure ulcer prevention per facility protocol Rehab: PT/OT Prophylaxis: GI: [Pepcid ] DVT: SCDs Code Status: Full Resuscitation Disposition: M/S tele Other: Total patient care time exceeds 35 minutes excluding all procedures. Case was discussed and seen with my supervising physician. The above plan was formulated and agreed upon. ATTESTATION BY PHYSICIAN I attest that I reviewed and discussed the case with the Physician Benefits Consulting Analyst as well as agree with the Physician Benefits Consulting Analyst's findings, plans of care, and documentation above. Robbie Shea MD, [facility] Oct 05, 2024 08:03
--- NOTE | 2024-10-05 08:17 | HMCIMG ---
CT HEAD/BRAIN W/O CONTRAST HISTORY: Altered mental status COMPARISON: 10/05/2024 TECHNIQUE: Multiple sequential axial images of the head were obtained from the base of the skull through vertex. Patient was not given contrast through intravenous route. FINDINGS: The ventricles and extraventricular CSF spaces are dilated consistent with cerebral atrophy. Nonspecific white matter changes seen. There is no midline shift, mass effect or herniation. No acute intracranial bleed is seen. Visualized portion of the paranasal sinuses are grossly within normal limits. IMPRESSION: 1. No acute intracranial bleed is seen. 2. Atrophy with white matter changes. CT was performed with one or more following dose reduction techniques: automated exposure control, adjustment of the mA and kv according to patient's size, or use of a iterative reconstruction technique.
--- NOTE | 2024-10-05 09:06 | NUR ---
MIDODRINE NOT ADMINISTERED BP 134/68.
--- NOTE | 2024-10-05 09:10 | HMCIMG ---
CT ABDOMEN/PELVIS W/WO CONTRAS HISTORY: Altered mental status COMPARISON: None TECHNIQUE: Multiple sequential axial images of the abdomen and pelvis were obtained from the dome of the diaphragm through symphysis pubis. Patient was given 100 cc of Isovue through intravenous route. Oral contrast was not given. FINDINGS: No pleural effusion is seen bilaterally. There is no evidence of parenchymal disease or pulmonary nodule of the visualized lower lungs. Degenerative changes of the thoracolumbar spine are present. The heart is not enlarged. Postop changes are seen of the lower lumbar spine. Liver measured 15 cm. Gallstone is seen in the distended gallbladder. The liver, spleen, adrenal glands and pancreas are unremarkable. There is no evidence of hydronephrosis bilaterally. No evidence of renal stone is seen. Fecal material is seen in the colon. There are normal size retroperitoneal and mesenteric lymph nodes. No ascites is seen. Atherosclerotic changes are present. Pelvic sidewalls are symmetric bilaterally. Bladder is well distended without wall thickening. IMPRESSION: 1. Gallstone in the gallbladder. CT was performed with one or more following dose reduction techniques: automated exposure control, adjustment of the mA and kv according to patient's size, or use of a iterative reconstruction technique.
[2024-10-05] MEDS ORDERED: CYCL5TAB3 PO (09:15)
[2024-10-05] MEDS: FAMOTIDINE 20MG TAB PO SCH (09:18)
--- NOTE | 2024-10-05 09:30 | NUR ---
MEDICATIONS RECONCILED
--- NOTE | 2024-10-05 10:57 | NUR ---
DCP: HOME WITH [facility] met with pt and Mami Bennett [phone]. Pt recently discharged on 09/28 to home. states Rosalindlizet KIMBROUGH started yesterday for PT services. Consent signed [place] services [place]. Consent on chart. states she assists pt as needed with ADLS, and home management. Son Maikel lives with them and he assists with transport as needed. pt has a walker with seat he uses daily, no HH or HD services. PCP is Juan Dhillon and uses [facility] rx needs. DCP is home with [facility] E Addendum: 10/05/24 at 1102 by CYNTHIA BARRIOS Amended: Links added.
[2024-10-05] MEDS: SODIUM CHLORIDE 3% FOR INHALATION 4 ML/AMP VIAL.NEB IH ONE ×3 (11:49→23:15)
--- NOTE | 2024-10-05 12:16 | HMCIMG ---
CHEST 1VW HISTORY: Sepsis COMPARISON: 09/21/2024 FINDINGS: A frontal projection of the chest was obtained. No acute pulmonary infiltrates is seen. The heart is normal in size. Degenerative changes are seen. Aortic calcifications are seen. IMPRESSION: 1. No acute pulmonary infiltrate is seen.
--- NOTE | 2024-10-05 14:07 | NUR ---
REPORT REPORT RECEIVED FROM FILIBERTO FROM ER. WAITING FOR PT TO ARRIVE TO UNIT .
--- NOTE | 2024-10-05 14:09 | NUR ---
REPORT GIVEN TO NURSE GABINO
--- NOTE | 2024-10-05 14:09 | NUR ---
MIDODRINE NOT ADMINISTERED BP 125/66
[2024-10-05 14:20] VITALS: BP 112/57; PULSE 88; RESP 17; TEMP 97.7
--- NOTE | 2024-10-05 14:20 | NUR ---
ARRIVAL TO UNIT VIA STRETCHER. UNLABORED BREATHING. A&OX4. FAMILY AT BEDSIDE. ANSWERED ALL QUESTIONS AT THIS TIME.
[2024-10-05 16:00] VITALS: BP 166/58; PULSE 85; RESP 17; TEMP 97.7
[2024-10-05] MEDS ORDERED: VANCOMYCIN PROTOCOL PER PHARMACY IV SCH (17:00)
[2024-10-05] MEDS ORDERED: VANCOMYCIN 1.75 GM/250 ML BAG 250 ML IV ONE (18:00)
[2024-10-05] MEDS ORDERED: PHARMACY COMMUNICATION 1 EACH EACH MISC SCH (18:00)
[2024-10-05 20:00] VITALS: BP 103/56; PULSE 86; RESP 17; TEMP 98.3
[2024-10-05] MEDS: VANCOMYCIN 1.75 GM/250 ML BAG 250 ML IV ONE (20:39)
[2024-10-06] VITALS (8 sets, daily range): BP systolic 108–148; BP diastolic 58–71; PULSE 79–96; RESP 16–20; TEMP 98–98.6; O2SAT 95
[2024-10-06] MEDS ORDERED: cefTRIAXone 1G VIAL IV SCH (01:00)
[2024-10-06] MEDS: cefTRIAXone 2GM VIAL IVPB SCH (01:18)
[2024-10-06 05:17] LABS: HEMATOCRIT 37.2 % (42-54); MEAN CORPUSCULAR HEMOGLOBIN 31.4 pg (27.0-33.0); MEAN CORPUSCULAR HGB CONC 32.8 g/dL (32.0-36.0); MEAN CORPUSCULAR VOLUME 95.9 fL (79-99); RED BLOOD CELL COUNT(AUTO) 3.88 MIL/uL (4.50-6.20); RED CELL DISTRIBUTION WIDTH 15.1 % (11.0-15.5); WHITE BLOOD COUNT (AUTO) 8.7 K/uL (4.8-10.8)
[2024-10-06 05:24] LABS: ALBUMIN 2.8 g/dL (3.5-5.0); BILIRUBIN,TOTAL 0.4 mg/dL (0.2-1.0); CREATININE 0.9 mg/dL (0.5-1.3); TOTAL PROTEIN, SERUM 6.2 g/dL (6.0-8.3)
[2024-10-06] MEDS: VANCOMYCIN 750MG VIAL IVPB SCH (10:42)
--- NOTE | 2024-10-06 12:09 | PN ---
[facility] PROGRESS NOTE Date Patient Seen: Oct 06, 2024 Time of Visit: 12:09 Supervising Physician: Dr. 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 Patient's white count today is 8.7 and he remains on room air. He continues on vancomycin and Rocephin today for severe sepsis. Electrolytes and renal function are within normal limits. Patient's vitals were improved, no overnight events reported after downgrade from ICU. At this time [facility] will sign off, thank you for allowing us to participate in the care of this patient. REVIEW OF SYSTEMS: 12 point ROS reviewed with patient. Pertinent positives mentioned above. Otherwise negative. PHYSICAL EXAM: GENERAL: alert, weak, awake oriented x 2, forgetful history of dementia HEENT: EOMI, Sclera non icteric, moist mucosa NECK: Supple, no JVD, trachea midline LUNGS: Clear breath sounds bilaterally. No wheezes HEART: Regular rate and rhythm. Normal S1 and S2, without murmurs ABD: Abdomen soft, nontender. Bowel sounds present EXT: No clubbing cyanosis or edema NEURO: Alert and oriented to person, follows commands Vital Signs (last 8hr) Date Time Temp Pulse Resp B/P (MAP) Pulse Ox O2 Delivery O2 Flow Rate FiO2 10/06/24 08:00 98.2 96 18 112/58 95 Room Air 21 LABS: Hematology Labs: Test 10/06/24 04:22 10/05/24 04:52 10/05/24 00:57 Range/Units White Blood Count 8.7 # 4.8-10.8 K/uL Red Blood Count 3.88 L 4.50-6.20 MIL/uL Hemoglobin 12.2 L 14.0-18.0 g/dL Hematocrit 37.2 L 42-54 % Mean Corpuscular Volume 95.9 79-99 fL Mean Corpuscular Hemoglobin 31.4 27.0-33.0 pg Mean Corpuscular Hemoglobin Concent 32.8 32.0-36.0 g/dL Red Cell Distribution Width 15.1 11.0-15.5 % Platelet Count 81 L 130-400 K/uL Mean Platelet Volume 11.1 H 7.5-10.5 fL Nucleated Red Blood Cells 0.0 0.0-0.19 % Immature Granulocyte % (Auto) 0.8 0-1 % Neutrophils (%) (Auto) 86.9 H 40.0-77.0 % Lymphocytes (%) (Auto) 5.1 L 21.0-51.0 % Monocytes (%) (Auto) 7.0 3.0-13.0 % Eosinophils (%) (Auto) 0.0 0.0-8.0 % Basophils (%) (Auto) 0.2 0.0-5.0 % Neutrophils # (Auto) 11.5 H 1.8-7.7 K/uL Lymphocytes # (Auto) 0.7 L 1.0-4.8 K/uL Monocytes # (Auto) 0.9 0.1-1.0 K/uL Eosinophils # (Auto) 0.00 0.00-0.70 K/uL Basophils # (Auto) 0.02 0.00-0.20 K/uL Absolute Immature Granulocyte (auto 0.10 0-1 K/uL White Cell Morphology Comment CONSISTENT W/DIFF Platelet Morphology PLT CLUMPS PRESENT Erythrocyte Sedimentation Rate 7 0-20 MM/HR Chemistry Labs: Test 10/06/24 11:43 10/06/24 04:22 10/05/24 04:52 10/05/24 04:33 Range/Units Whole Blood Glucose 131 H 70-110 MG/DL Sodium Level 139 136-145 mmol/L Potassium Level 4.0 3.5-5.1 mmol/L Chloride Level 105 101-111 mmol/L Carbon Dioxide Level 23 21-32 mmol/L Blood Urea Nitrogen 20 H 7-18 mg/dL Creatinine 0.9 0.5-1.3 mg/dL Glomerular Filtration Rate Calc 91 >90 mL/min Random Glucose 102 70-105 mg/dL Total Calcium 8.4 L 8.5-10.1 mg/dL Total Bilirubin 0.4 0.2-1.0 mg/dL Aspartate Amino Transf (AST/SGOT) 21 10-37 U/L Alanine Aminotransferase (ALT/SGPT) 19 12-78 U/L Alkaline Phosphatase 65 50-136 U/L Total Protein 6.2 6.0-8.3 g/dL Albumin 2.8 L 3.5-5.0 g/dL Lactate Dehydrogenase 207 81-234 U/L C-Reactive Protein, Quantitative 81.30 H 0.5-3.0 mg/L Lactic Acid Level 1.3 0.8-2.5 mmol/L Procalcitonin 1.69 H 0.05-0.5 ng/mL Test 10/05/24 00:58 10/05/24 00:57 Range/Units Troponin I High Sensitivity 36 4-75 ng/L Total Creatine Kinase 86 # 21-232 U/L DIAGNOSTICS / RADIOLOGY RESULTS: [ ] PLAN NEURO: Minimize central acting medications as possible. Maintain fall precautions, adequate lighting during the day PULMONARY: Supplemental 02 as needed. Maintain aspiration precautions at all times CARDIOVASCULAR: Follow hemodynamics. Vital signs per facility protocol GI & NUTRITION: Continue with nutritional support. Continue stool softeners and laxatives as needed. KIDNEYS & ELECTROLYTES: Strict monitoring of intake, output and overall fluid balance. Avoid nephrotoxic medications to the extent possible. Medications to be dosed according to renal function. Monitor electrolytes and replace as needed ENDOCRINE: Maintain blood glucose between 100-180 at all times. Hypoglycemia protocol in place INFECTIOUS DISEASE: Trend temperature, WBC and procalcitonin level Follow cultures, deescalate antibiotics as soon as possible. Panculture if new onset fever ONCOLOGY/HEMATOLOGY/COAGULATION: Monitor for s/s of bleeding Monitor hemoglobin, coagulation studies as needed SKIN: Pressure ulcer prevention per facility protocol Specialty mattress ORTHO/REHAB: Continue PT/OT Prophylaxis: Continue GI and DVT prophylaxis Code Status: Full Resuscitation Disposition: TBD Other: Total patient care time exceeds 35 minutes excluding all procedures. RENETTA GRANADOS Oct 06, 2024 12:09
--- NOTE | 2024-10-06 13:24 | HMCSR ---
APPROVED REPORT EXAM: LIMITED Two-dimensional and M-mode echocardiogram with Doppler and color Doppler. Study Details: previous echo 09/22/24 INDICATION ICD: Bacteremia R78.81 2D Dimensions RVDd3.2 cmLVED Vol(simp.)67.0 mL LVES Vol(simp.)38.0 mL LVEF(%, simp.)44 % LA ESV INDEX (BP)26.07 mL/m2 Deformation Strain Apical 4-14.6 % Apical 2-10.3 % Apical 3-13.7 % Global Strain-12.9 % Left Ventricle Left ventricular cavity size is normal. Septal bounce is present. LVEF is 40-45%. No left ventricular thrombus noted. Right Ventricle The right ventricle is normal size. The right ventricular systolic function is normal. No right ventr icular thrombus noted. Atria The left atrial size is normal. Aortic Valve Prosthetic aortic valve is present. Prosthetic aortic valve is normal in appearance and well seated. No aortic valvular vegetation noted. Mitral Valve Mitral valve leaflets open well. Mitral valve leaflets appear normal. Moderate mitral annular calcifi cation. Mitral regurgitation is mild. There are no mitral valve vegetation noted. Tricuspid Valve Tricuspid valve leaflets open well. The tricuspid valve is normal in structure and function. There is no tricuspid valve vegetation. Pulmonic Valve Pulmonic valve is not well visualized. There is no significant pulmonic valvular regurgitation. There is no pulmonic valve vegetation. Pericardium No pericardial effusion. Other Information Quality : GoodRhythm : NSR Conclusion LVEF is 40-45%. Septal bounce is present. Prosthetic aortic valve is present, normal in appearance and well seated. No vegetations of the mitral or tricuspid valves. Moderate mitral annular calcification. Pulmonic valve not well visualized.
--- NOTE | 2024-10-06 15:54 | PN ---
[facility] PROGRESS NOTE Date of Service: Oct 06, 2024 Time of Service: 15:49 SUBJECTIVE: 10/06 No acute events overnight. Cultures positive for bacteremia 2/2 gram positive. Continue IV antibiotics. Repeat echo ordered to rule out endocarditis. ID recommending repeat MRI of spine as spinal lesion may be infectious. REVIEW OF SYSTEMS 12 point ROS negative unless noted in HPI PHYSICAL EXAM GENERAL APPEARANCE: The patient is awake, alert, and oriented, in no acute cardiopulmonary distress. NEUROLOGICAL: Cranial nerves II-XII grossly intact. Motor is 5/5 in bilateral upper and lower extremities proximal to distal. No sensory deficits. HEENT: Face is symmetric. Pupils are equal and reactive. Extraocular movements are intact. NECK: Supple. No JVD. No thyromegaly. No submental, submandibular, pre- /postauricular, occipital or supraclavicular lymphadenopathy. CHEST: Normal chest expansion. No Telemetry. LUNGS: Absence of any rales, rhonchi or any wheezing. CARDIOVASCULAR: Regular. S1 and S2 normal. No appreciable rubs, murmurs or gallops. ABDOMEN: Soft, nontender, and nondistended. There is no rebound, voluntary guarding, or rigidity. : Deferred. No Emmaunel. EXTREMITIES: Non-edematous and not cyanotic. No clubbing. Good capillary refill. SKIN: No skin breakdown. Vital Signs (last 8hr) Date Time Temp Pulse Resp B/P (MAP) Pulse Ox O2 Delivery O2 Flow Rate FiO2 10/06/24 12:00 98.4 88 18 116/60 96 Room Air 21 10/06/24 08:00 98.2 96 18 112/58 95 Room Air 21 LABS: Laboratory: Test 10/06/24 11:43 10/06/24 04:22 10/05/24 04:52 10/05/24 04:33 Range/Units Whole Blood Glucose 131 H 70-110 MG/DL White Blood Count 8.7 # 4.8-10.8 K/uL Red Blood Count 3.88 L 4.50-6.20 MIL/uL Hemoglobin 12.2 L 14.0-18.0 g/dL Hematocrit 37.2 L 42-54 % Mean Corpuscular Volume 95.9 79-99 fL Mean Corpuscular Hemoglobin 31.4 27.0-33.0 pg Mean Corpuscular Hemoglobin Concent 32.8 32.0-36.0 g/dL Red Cell Distribution Width 15.1 11.0-15.5 % Platelet Count 81 L 130-400 K/uL Mean Platelet Volume 11.1 H 7.5-10.5 fL Nucleated Red Blood Cells 0.0 0.0-0.19 % Sodium Level 139 136-145 mmol/L Potassium Level 4.0 3.5-5.1 mmol/L Chloride Level 105 101-111 mmol/L Carbon Dioxide Level 23 21-32 mmol/L Blood Urea Nitrogen 20 H 7-18 mg/dL Creatinine 0.9 0.5-1.3 mg/dL Glomerular Filtration Rate Calc 91 >90 mL/min Random Glucose 102 70-105 mg/dL Total Calcium 8.4 L 8.5-10.1 mg/dL Total Bilirubin 0.4 0.2-1.0 mg/dL Aspartate Amino Transf (AST/SGOT) 21 10-37 U/L Alanine Aminotransferase (ALT/SGPT) 19 12-78 U/L Alkaline Phosphatase 65 50-136 U/L Total Protein 6.2 6.0-8.3 g/dL Albumin 2.8 L 3.5-5.0 g/dL Immature Granulocyte % (Auto) 0.8 0-1 % Neutrophils (%) (Auto) 86.9 H 40.0-77.0 % Lymphocytes (%) (Auto) 5.1 L 21.0-51.0 % Monocytes (%) (Auto) 7.0 3.0-13.0 % Eosinophils (%) (Auto) 0.0 0.0-8.0 % Basophils (%) (Auto) 0.2 0.0-5.0 % Neutrophils # (Auto) 11.5 H 1.8-7.7 K/uL Lymphocytes # (Auto) 0.7 L 1.0-4.8 K/uL Monocytes # (Auto) 0.9 0.1-1.0 K/uL Eosinophils # (Auto) 0.00 0.00-0.70 K/uL Basophils # (Auto) 0.02 0.00-0.20 K/uL Absolute Immature Granulocyte (auto 0.10 0-1 K/uL Lactate Dehydrogenase 207 81-234 U/L C-Reactive Protein, Quantitative 81.30 H 0.5-3.0 mg/L Brucella Total Antibody Agglutin NEGATIVE NEGATIVE Paratyphoid A Antibody NEGATIVE NEGATIVE Paratyphoid B Antibody NEGATIVE NEGATIVE Proteus OX-19 Antibody NEGATIVE NEGATIVE Typhoid H Antibody NEGATIVE NEGATIVE Typhoid O Antibody NEGATIVE NEGATIVE Lactic Acid Level 1.3 0.8-2.5 mmol/L Procalcitonin 1.69 H 0.05-0.5 ng/mL Test 10/05/24 02:15 10/05/24 00:58 10/05/24 00:57 Range/Units Urine Color LIGHT-YELLOW YELLOW Urine Appearance CLEAR CLEAR Urine pH 6.5 5.0-8.0 Urine Specific [place] 1.035 H 1.001-1.031 Urine Protein 50 H NEGATIVE mg/dL Urine Glucose (UA) >=1000 H NEGATIVE mg/dL Urine Ketones 40 H NEGATIVE mg/dL Urine Occult Blood NEGATIVE NEGATIVE Urine Nitrate NEGATIVE NEGATIVE Urine Bilirubin NEGATIVE NEGATIVE mg/dL Urine Urobilinogen 2.0 H 0.2-1.0 mg/dL Urine Leukocyte Esterase NEGATIVE NEGATIVE Rojelio/uL Urine RBC 0-1 0-1 /HPF Urine WBC 0-1 0-1 /HPF Urine Bacteria RARE None Seen /HPF Troponin I High Sensitivity 36 4-75 ng/L Influenza Type A Antigen Negative For Type A NEGATIVE Influenza Type B Antigen Negative For Type B NEGATIVE SARS-CoV-2 Antigen (Rapid) PRESUMPTIVE NEGATIVE NEGATIVE Group A Streptococcus Rapid negative NEGATIVE White Cell Morphology Comment CONSISTENT W/DIFF Platelet Morphology PLT CLUMPS PRESENT Erythrocyte Sedimentation Rate 7 0-20 MM/HR Total Creatine Kinase 86 # 21-232 U/L Current Medications Medications (Trade) Dose Ordered Sig/Ann Marie Route PRN Reason Start Time Stop Time Status Last Admin Dose Admin Acetaminophen (TYLenol 325MG TAB) 650 mg Q4H PRN PO MILD PAIN (1-3) 10/05/24 06:00 11/04/24 05:59 Acetaminophen (TYLenol 325MG TAB) 650 mg Q6H PRN PO TEMPERATURE GREATER THAN 101.5 10/05/24 06:00 11/04/24 05:59 Ceftriaxone Sodium (ROCEphine 1G INJ) 1 gm Q24H IV 10/06/24 01:00 10/05/24 08:03 DC Ceftriaxone Sodium (Rocephin 2gm Inj) 2 gm Q24H IVPB 10/06/24 01:00 10/16/24 00:59 10/06/24 01:18 2 GM Dextrose (D50w) 50 ml AD PRN IV HYPOGLYCEMIA PROTOCOL 10/05/24 06:00 11/04/24 05:59 Doxycycline Hyclate 250 ml @ 250 mls/hr Q12H IV 10/05/24 06:00 10/06/24 08:34 DC 10/06/24 06:50 250 MLS/HR Famotidine (Pepcid 20mg Tab) 20 mg Q24H PO 10/05/24 09:00 11/04/24 08:59 10/06/24 10:40 20 MG Glucagon (Glucagon 1mg Kit) 1 mg AD PRN IM HYPOGLYCEMIA PROTOCOL 10/05/24 06:00 11/04/24 05:59 Insulin Human Regular (humuLIN R 100 UNIT/ML 3ML) INSULIN SLIDING SCAL... ACHS SQ 10/05/24 07:30 11/04/24 07:29 Magnesium Sulfate 50 ml @ 0 mls/hr PROTOCOL PRN IV OTHER [SEE ORDER COMMENTS] 10/05/24 06:00 11/04/24 05:59 Midodrine (PROAMatine 5 MG TABLET) 10 mg TID PO 10/05/24 06:30 11/04/24 06:29 10/06/24 15:04 10 MG Norepinephrine 250 ml @ 0 mls/hr PROTOCOL IV 10/05/24 03:00 10/05/24 02:57 DC Norepinephrine 250 ml @ 0 mls/hr PROTOCOL IV 10/05/24 03:00 10/05/24 21:58 DC 10/05/24 03:01 25.5 MLS/HR Ondansetron HCl (zoFRAN 4MG INJ) 4 mg Q6H PRN IV NAUSEA/VOMITING 10/05/24 06:00 11/04/24 05:59 Pharmacy Profile Note (Lace Assessment) 1 each AD MISC 10/05/24 18:00 10/05/24 18:13 DC Potassium Chloride 100 ml @ 100 mls/hr AD PRN IV POTASSIUM PROTOCOL 10/05/24 06:00 11/04/24 05:59 Potassium Chloride (K-Dur/Klor-Con 20meq) 20 meq AD PRN PO POTASSIUM PROTOCOL 10/05/24 06:00 11/04/24 05:59 Potassium Chloride (KCl 10% Elixir 20meq/15ml) 20 meq AD PRN PO POTASSIUM PROTOCOL 10/05/24 06:00 11/04/24 05:59 Sodium Chloride 1,000 ml @ 100 mls/hr Q10H IV 10/05/24 06:00 11/04/24 05:59 10/05/24 06:56 100 MLS/HR Vancomycin HCl (Vancomycin 750mg) 750 mg Q12H IVPB 10/06/24 08:00 10/16/24 07:59 10/06/24 10:42 750 MG Vancomycin HCl (Vancomycin Protocol) 1 each AD IV 10/05/24 17:00 10/19/24 16:59 DIAGNOSTICS / RADIOLOGY: [ ] ASSESSMENT: Severe sepsis with organ dysfunction of unknown source POA Septic shock POA Normocytic normochromic anemia POA Acute thrombocytopenia POA Acute renal insufficiency POA Uncontrolled diabetes POA Coronary artery disease with CABG POA 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 b.i.d. for GI prophylaxis We will replace electrolytes as needed per protocol We will start on insulin sliding scale AC & HS with hypoglycemia protocol We will add prn medication for fever,pain,cough , nausea and vomiting We will reconcile home meds once medlist available We will seek critical care consultation We will follow up CT head and abdomen result We will request labs in am Further orders to follow depending on above results Case discussed with attending physician and came up with above treatment and plan of care. TIMOTHY VENEGAS MD Oct 06, 2024 15:54
--- NOTE | 2024-10-06 23:34 | CONS ---
INFECTIOUS DISEASE CONSULTATION DATE OF SERVICE: 10/06/2024 REQUESTING PHYSICIAN: Dr. Preet Mercer REASON FOR CONSULTATION: Gram-positive bacteremia and sepsis. HISTORY OF PRESENT ILLNESS: A 74-year-old male with diabetes mellitus, hypertension, dementia, and coronary artery disease, who was brought in by to the Emergency Room, with fever. The patient also complains of weakness and altered mental status. T-max was 102.9. Pulse was 125. The patient also complains of lower back pain. The patient found with blood culture positive for gram positive cocci. He has been started on vancomycin and ceftriaxone. ____ gallstone and gallbladder with no distention. Chest x-ray is unremarkable. CT of the brain is unremarkable. The patient was recently admitted to this facility. During the previous admission, MRI of the cervical spine was done, which showed cervical myelomalacia. The patient was evaluated by Neurosurgery. A 2D echocardiogram was done during that admission, which showed tricuspid valve and thickening. No evidence of vegetation was found on the prostatic aortic valve. PAST MEDICAL HISTORY: * Diabetes mellitus. * Hypertension. * Dyslipidemia. * Dementia. * Coronary artery disease. * TIA. PAST SURGICAL HISTORY: * Cardiac catheterization. * CABG. * Lumbar laminectomy. * Aortic valve replacement. ALLERGIES: No known drug allergies. CURRENT MEDICATIONS: Reviewed. SOCIAL HISTORY: Lives with . No alcohol, tobacco, or illicit drug use. FAMILY HISTORY: Positive for diabetes mellitus. REVIEW OF SYSTEMS: CONSTITUTIONAL: Positive for fever and chills. No weight loss or night sweats. EYES: No eye pain. No photophobia or diplopia. HENT: Denies sore throat. No rhinorrhea or earache. NECK: No neck pain, no neck swelling. RESPIRATORY: No cough. No hemoptysis or pleuritic pain. CARDIOVASCULAR: No chest pain. No palpitation or orthopnea. GASTROINTESTINAL: Denies nausea, vomiting, or abdominal pain. GENITOURINARY: No dysuria, urgency, or urinary frequency. CENTRAL NERVOUS SYSTEM: No headache, dyspnea, or slurred speech. PSYCHIATRIC: No depression. No suicidal ideation. MUSCULOSKELETAL: No joint pain, no joint swelling. PHYSICAL EXAMINATION: GENERAL: Elderly male, awake, not in distress. VITAL SIGNS: Temperature 98.7, pulse 96, respiratory rate 18, BP 112/58. EYES: No icterus. Pupils equal and reactive. HENT: No oral thrush seen. Moist oral mucosa. NECK: Supple. No JVD or thyromegaly. LUNGS: Good air entry. No rales, no rhonchi. CARDIOVASCULAR: S1 and S2 regular. No murmur heard. ABDOMEN: Obese, soft, nontender. Bowel sound is present. CENTRAL NERVOUS SYSTEM: Awake, alert, oriented x 3. No focal deficits. SKIN: No rashes, no itchiness. LYMPHATIC: No peripheral lymphadenopathy. BACK: No deformity, no pressure ulcer. MUSCULOSKELETAL: No joint swelling, erythema, or tenderness. LABORATORY DATA: Sodium 139, potassium 4.0, BUN 20, creatinine 0.9, WBC 8.7, hemoglobin 12.2, platelets ____. Influenza antigen negative. Urinalysis negative. Blood culture grew Gram-positive cocci and cluster. RADIOLOGY: CT of the abdomen showed cholelithiasis. Chest x-ray unremarkable. CT of the brain is unremarkable. ASSESSMENT: A 74-year-old male, presenting with fever, weakness. Current problems include: * Gram-positive bacteremia and sepsis. * Chronic back pain. * Diabetes mellitus. * Hypertension. * Obesity. * Thrombocytopenia. PLAN: * I will obtain an MRI of the lumbar spine. * Continue vancomycin. * The patient will need a transesophageal echocardiogram depending on the report of the 2D echocardiogram. * Continue antihypertensive. * Continue antidiabetic. * Continue nutritional support. * Monitor electrolytes. * The patient will be followed up closely. Thank you for allowing me to participate in the care of this patient. TID: [id number] RECEIPT: [id number]
[2024-10-07] VITALS (9 sets, daily range): BP systolic 103–162; BP diastolic 60–82; PULSE 81–96; RESP 16–20; TEMP 97.9–98.4; O2SAT 95–99
--- NOTE | 2024-10-07 09:44 | PN ---
[facility] PROGRESS NOTE Date Patient Seen: Oct 07, 2024 Time of Visit: 09:44 Supervising Physician: [ ] Supervising Physician: Dr. 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 Patient's white count today is 8.7 and he remains on room air. He continues on vancomycin and Rocephin today for severe sepsis. Patient's lab work was reviewed and appears unremarkable at this time. Vitals are within normal limits today. Conversation was held regarding the patient's prognosis and disposition, patient advised primary team in charge of disposition. Several questions regarding the patient's prognosis and diagnosis answered for family. REVIEW OF SYSTEMS: 12 point ROS reviewed with patient. Pertinent positives mentioned above. Otherwise negative. PHYSICAL EXAM: GENERAL: alert, weak, awake oriented x 2, forgetful history of dementia HEENT: EOMI, Sclera non icteric, moist mucosa NECK: Supple, no JVD, trachea midline LUNGS: Clear breath sounds bilaterally. No wheezes HEART: Regular rate and rhythm. Normal S1 and S2, without murmurs ABD: Abdomen soft, nontender. Bowel sounds present EXT: No clubbing cyanosis or edema NEURO: Alert and oriented to person, follows commands Vital Signs (last 8hr) Date Time Temp Pulse Resp B/P (MAP) Pulse Ox O2 Delivery O2 Flow Rate FiO2 10/07/24 08:00 98.2 81 16 117/63 95 Room Air 21 10/07/24 04:44 98.4 85 18 123/63 95 Room Air LABS: Hematology Labs: Test 10/06/24 04:22 Range/Units White Blood Count 8.7 # 4.8-10.8 K/uL Red Blood Count 3.88 L 4.50-6.20 MIL/uL Hemoglobin 12.2 L 14.0-18.0 g/dL Hematocrit 37.2 L 42-54 % Mean Corpuscular Volume 95.9 79-99 fL Mean Corpuscular Hemoglobin 31.4 27.0-33.0 pg Mean Corpuscular Hemoglobin Concent 32.8 32.0-36.0 g/dL Red Cell Distribution Width 15.1 11.0-15.5 % Platelet Count 81 L 130-400 K/uL Mean Platelet Volume 11.1 H 7.5-10.5 fL Nucleated Red Blood Cells 0.0 0.0-0.19 % Chemistry Labs: Test 10/07/24 05:10 10/06/24 04:22 Range/Units Whole Blood Glucose 107 70-110 MG/DL Sodium Level 139 136-145 mmol/L Potassium Level 4.0 3.5-5.1 mmol/L Chloride Level 105 101-111 mmol/L Carbon Dioxide Level 23 21-32 mmol/L Blood Urea Nitrogen 20 H 7-18 mg/dL Creatinine 0.9 0.5-1.3 mg/dL Glomerular Filtration Rate Calc 91 >90 mL/min Random Glucose 102 70-105 mg/dL Total Calcium 8.4 L 8.5-10.1 mg/dL Total Bilirubin 0.4 0.2-1.0 mg/dL Aspartate Amino Transf (AST/SGOT) 21 10-37 U/L Alanine Aminotransferase (ALT/SGPT) 19 12-78 U/L Alkaline Phosphatase 65 50-136 U/L Total Protein 6.2 6.0-8.3 g/dL Albumin 2.8 L 3.5-5.0 g/dL DIAGNOSTICS / RADIOLOGY RESULTS: [ ] PLAN NEURO: Minimize central acting medications as possible. Maintain fall precautions, adequate lighting during the day PULMONARY: Supplemental 02 as needed. Maintain aspiration precautions at all times CARDIOVASCULAR: Follow hemodynamics. Vital signs per facility protocol GI & NUTRITION: Continue with nutritional support. Continue stool softeners and laxatives as needed. KIDNEYS & ELECTROLYTES: Strict monitoring of intake, output and overall fluid balance. Avoid nephrotoxic medications to the extent possible. Medications to be dosed according to renal function. Monitor electrolytes and replace as needed ENDOCRINE: Maintain blood glucose between 100-180 at all times. Hypoglycemia protocol in place INFECTIOUS DISEASE: Trend temperature, WBC and procalcitonin level Follow cultures, deescalate antibiotics as soon as possible. Panculture if new onset fever ONCOLOGY/HEMATOLOGY/COAGULATION: Monitor for s/s of bleeding Monitor hemoglobin, coagulation studies as needed SKIN: Pressure ulcer prevention per facility protocol Specialty mattress ORTHO/REHAB: Continue PT/OT Prophylaxis: Continue GI and DVT prophylaxis Code Status: Full Resuscitation Disposition: TBD Other: Total patient care time exceeds 35 minutes excluding all procedures. RENETTA GRANADOS Oct 07, 2024 09:44
[2024-10-07] MEDS: MIDAZOLAM HCL 1 MG/ML 2ML VIAL IVP ONE (14:00)
[2024-10-07] MEDS: FENTanyl CITRate PF 50 MCG/1 ML 2ML VIAL IVP ONE (14:00)
--- NOTE | 2024-10-07 14:11 | HMCIMG ---
MRI LUMBAR SPINE WITHOUT AND WITH CONTRAST INDICATION: Bacteremia TECHNIQUE: Long and short axis fat and water weighted sequences were obtained through the lumbar spine before and after the administration of 10 mL of Clariscan contrast material without adverse effect. COMPARISON: 09/25/2024 FINDINGS: Normal lordosis of the lumbar spine is maintained. The lumbar vertebral bodies are normal in height, without evidence for acute compression fracture or osseous marrow replacing process. The conus medullaris is normal in signal and terminates at the appropriate level. Extensive susceptibility artifact from L3-L5 fusion hardware limits the study. Mild to moderate anterior spondylosis deformans at the L5-S1 level. Severe disc height loss at the same level. Broad-based posterior disc-osteophyte complex formation, including right and left foraminal extension contributes to mild bilateral neuroforaminal narrowing at the L5-S1 level, including nominal mass effect upon both descending nerve roots. Extremely shallow right and left foraminal disc displacement at the L1-L2 level and on the left at the L2-L3 level, the latter which contributes to mild left inferior neural foraminal narrowing. Extremely shallow posterior disc displacement, including right and left foraminal extension at the L3-L4 level with secondary mild bilateral inferior neuroforaminal narrowing. Slightly more pronounced changes noted at the L4-L5 level. Multilevel mild to moderate anterior endplate osteophytic spurring. No evidence for discitis or osteomyelitis. Following the administration of contrast, no abnormal areas of enhancement identified. ANCILLARY FINDINGS: None. IMPRESSION: No evidence for discitis, abscess, or osteomyelitis. Broad-based posterior disc-osteophyte complex formation, including right and left foraminal extension contributes to mild bilateral neuroforaminal narrowing at the L5-S1 level, including nominal mass effect upon both descending nerve roots. Level by level analysis, additional minor degenerative changes, and pertinent negatives as reported.
--- NOTE | 2024-10-07 15:12 | PN ---
[facility] PROGRESS NOTE Date of Service: Oct 07, 2024 Time of Service: 15:08 SUBJECTIVE: 10/06 No acute events overnight. Cultures positive for bacteremia 2/2 gram positive. Continue IV antibiotics. Repeat echo ordered to rule out endocarditis. ID recommending repeat MRI of spine as spinal lesion may be infectious. 10/07 acute events overnight. Cardiology recommending MYKE tomorrow, patient will be made NPO after midnight. MRI of the lumbar spine still pending, we will follow up. Patient given a lab holiday today, we will repeat tomorrow. We will order a repeat blood cultures tomorrow as well. REVIEW OF SYSTEMS 12 point ROS negative unless noted in HPI PHYSICAL EXAM GENERAL APPEARANCE: The patient is awake, alert, and oriented, in no acute cardiopulmonary distress. NEUROLOGICAL: Cranial nerves II-XII grossly intact. Motor is 5/5 in bilateral upper and lower extremities proximal to distal. No sensory deficits. HEENT: Face is symmetric. Pupils are equal and reactive. Extraocular movements are intact. NECK: Supple. No JVD. No thyromegaly. No submental, submandibular, pre- /postauricular, occipital or supraclavicular lymphadenopathy. CHEST: Normal chest expansion. No Telemetry. LUNGS: Absence of any rales, rhonchi or any wheezing. CARDIOVASCULAR: Regular. S1 and S2 normal. No appreciable rubs, murmurs or gallops. ABDOMEN: Soft, nontender, and nondistended. There is no rebound, voluntary guarding, or rigidity. : Deferred. No Emmanuel. EXTREMITIES: Non-edematous and not cyanotic. No clubbing. Good capillary refill. SKIN: No skin breakdown. Vital Signs (last 8hr) Date Time Temp Pulse Resp B/P (MAP) Pulse Ox O2 Delivery O2 Flow Rate FiO2 10/07/24 12:00 97.9 96 16 103/60 100 Room Air 21 10/07/24 08:20 95 Room Air* 0 21 10/07/24 08:00 98.2 81 16 117/63 95 Room Air 21 LABS: Laboratory: Test 10/07/24 12:24 10/07/24 07:05 10/06/24 04:22 Range/Units Whole Blood Glucose 157 H 70-110 MG/DL Vancomycin Level Trough 13.9 10.0-20.0 UG/ML White Blood Count 8.7 # 4.8-10.8 K/uL Red Blood Count 3.88 L 4.50-6.20 MIL/uL Hemoglobin 12.2 L 14.0-18.0 g/dL Hematocrit 37.2 L 42-54 % Mean Corpuscular Volume 95.9 79-99 fL Mean Corpuscular Hemoglobin 31.4 27.0-33.0 pg Mean Corpuscular Hemoglobin Concent 32.8 32.0-36.0 g/dL Red Cell Distribution Width 15.1 11.0-15.5 % Platelet Count 81 L 130-400 K/uL Mean Platelet Volume 11.1 H 7.5-10.5 fL Nucleated Red Blood Cells 0.0 0.0-0.19 % Sodium Level 139 136-145 mmol/L Potassium Level 4.0 3.5-5.1 mmol/L Chloride Level 105 101-111 mmol/L Carbon Dioxide Level 23 21-32 mmol/L Blood Urea Nitrogen 20 H 7-18 mg/dL Creatinine 0.9 0.5-1.3 mg/dL Glomerular Filtration Rate Calc 91 >90 mL/min Random Glucose 102 70-105 mg/dL Total Calcium 8.4 L 8.5-10.1 mg/dL Total Bilirubin 0.4 0.2-1.0 mg/dL Aspartate Amino Transf (AST/SGOT) 21 10-37 U/L Alanine Aminotransferase (ALT/SGPT) 19 12-78 U/L Alkaline Phosphatase 65 50-136 U/L Total Protein 6.2 6.0-8.3 g/dL Albumin 2.8 L 3.5-5.0 g/dL Current Medications Medications (Trade) Dose Ordered Sig/Ann Marie Route PRN Reason Start Time Stop Time Status Last Admin Dose Admin Acetaminophen (TYLenol 325MG TAB) 650 mg Q4H PRN PO MILD PAIN (1-3) 10/05/24 06:00 11/04/24 05:59 Acetaminophen (TYLenol 325MG TAB) 650 mg Q6H PRN PO TEMPERATURE GREATER THAN 101.5 10/05/24 06:00 11/04/24 05:59 Ceftriaxone Sodium (ROCEphine 1G INJ) 1 gm Q24H IV 10/06/24 01:00 10/05/24 08:03 DC Ceftriaxone Sodium (Rocephin 2gm Inj) 2 gm Q24H IVPB 10/06/24 01:00 10/16/24 00:59 10/07/24 00:49 2 GM Dextrose (D50w) 50 ml AD PRN IV HYPOGLYCEMIA PROTOCOL 10/05/24 06:00 11/04/24 05:59 Doxycycline Hyclate 250 ml @ 250 mls/hr Q12H IV 10/05/24 06:00 10/06/24 08:34 DC 10/06/24 06:50 250 MLS/HR Famotidine (Pepcid 20mg Tab) 20 mg Q24H PO 10/05/24 09:00 11/04/24 08:59 10/07/24 08:20 20 MG Glucagon (Glucagon 1mg Kit) 1 mg AD PRN IM HYPOGLYCEMIA PROTOCOL 10/05/24 06:00 11/04/24 05:59 Insulin Human Regular (humuLIN R 100 UNIT/ML 3ML) INSULIN SLIDING SCAL... ACHS SQ 10/05/24 07:30 11/04/24 07:29 10/06/24 21:51 2 UNIT Magnesium Sulfate 50 ml @ 0 mls/hr PROTOCOL PRN IV OTHER [SEE ORDER COMMENTS] 10/05/24 06:00 11/04/24 05:59 Midodrine (PROAMatine 5 MG TABLET) 10 mg TID PO 10/05/24 06:30 11/04/24 06:29 10/07/24 13:53 10 MG Norepinephrine 250 ml @ 0 mls/hr PROTOCOL IV 10/05/24 03:00 10/05/24 02:57 DC Norepinephrine 250 ml @ 0 mls/hr PROTOCOL IV 10/05/24 03:00 10/05/24 21:58 DC 10/05/24 03:01 25.5 MLS/HR Ondansetron HCl (zoFRAN 4MG INJ) 4 mg Q6H PRN IV NAUSEA/VOMITING 10/05/24 06:00 11/04/24 05:59 Pharmacy Profile Note (Lace Assessment) 1 each AD MISC 10/05/24 18:00 10/05/24 18:13 DC Potassium Chloride 100 ml @ 100 mls/hr AD PRN IV POTASSIUM PROTOCOL 10/05/24 06:00 11/04/24 05:59 Potassium Chloride (K-Dur/Klor-Con 20meq) 20 meq AD PRN PO POTASSIUM PROTOCOL 10/05/24 06:00 7/19/25 05:59 Potassium Chloride (KCl 10% Elixir 20meq/15ml) 20 meq AD PRN PO POTASSIUM PROTOCOL 10/05/24 06:00 11/04/24 05:59 Sodium Chloride 1,000 ml @ 100 mls/hr Q10H IV 10/05/24 06:00 11/04/24 05:59 10/07/24 08:21 100 MLS/HR Vancomycin HCl (Vancomycin 750mg) 750 mg Q12H IVPB 10/06/24 08:00 10/16/24 07:59 10/07/24 08:20 750 MG Vancomycin HCl (Vancomycin Protocol) 1 each AD IV 10/05/24 17:00 10/19/24 16:59 DIAGNOSTICS / RADIOLOGY: [ ] ASSESSMENT: Severe sepsis with organ dysfunction of unknown source POA Septic shock POA Normocytic normochromic anemia POA Acute thrombocytopenia POA= Acute renal insufficiency POA Uncontrolled diabetes POA Coronary artery disease with CABG POA 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 b.i.d. for GI prophylaxis Continue insulin sliding scale AC & HS with hypoglycemia protocol MYKE pending MRI lumbar spine pending ID consulted, appreciate recommendations Cardiology consulted, appreciate recommendations Disposition: Pending MYKE, MRI spine, ID and cardiology recommendations TIMOTHY VENEGAS MD Oct 07, 2024 15:12
--- NOTE | 2024-10-07 23:11 | PN ---
INFECTIOUS DISEASE FOLLOWUP NOTE DATE OF SERVICE: 10/07/2024 SUBJECTIVE: The patient is seen and examined at bedside today. The patient has no fever, no chills. No nausea. No vomiting. No bleeding tendency. No rashes or itchiness. No palpitations or orthopnea. Denies depression or suicidal ideation. PHYSICAL EXAMINATION: VITAL SIGNS: Temperature today 98.4. EYES: No icterus. Pupils equal and reactive. HENT: No oral thrush seen. Moist oral mucosa. NECK: Supple. No JVD or thyromegaly. LUNGS: Good air entry. No rales. No rhonchi. CARDIOVASCULAR: S1 and S2, regular. No murmur heard. ABDOMEN: Soft, nontender. Bowel sound is present. CENTRAL NERVOUS SYSTEM: Awake, alert, oriented x 3. No focal deficits. SKIN: No masses. No itchiness. LYMPHATIC: No peripheral lymphadenopathy. BACK: No deformity. No pressure ulcer. ASSESSMENT: A 74-year-old male admitted with fever and chills. CURRENT PROBLEMS INCLUDE: * Gram-positive bacteremia and sepsis. * Diabetes mellitus. * Chronic back pain. * Hypertension. * Obesity. * Thrombocytopenia. PLAN: * Continue wound care. * Continue pain management. * The antibiotic. * Continue GI prophylaxis. * Monitor renal function. * Continue antidiabetic. * The patient will need a MYKE. TID: [id number] RECEIPT: [id number]
[2024-10-08] VITALS (16 sets, daily range): BP systolic 90–158; BP diastolic 54–82; PULSE 78–103; RESP 16–20; TEMP 97.7–98.7; O2SAT 96
[2024-10-08 06:32] LABS: BASOPHILS # (AUTO) 0.02 K/uL (0.00-0.20); BASOPHILS % (AUTO) 0.2 % (0.0-5.0); EOSINOPHILS # (AUTO) 0.27 K/uL (0.00-0.70); EOSINOPHILS % (AUTO) 3.2 % (0.0-8.0); HEMATOCRIT 36.8 % (42-54); IMMATURE GRANULOCYTE ABSOLUTE 0.03 K/uL (0-1); LYMPHOCYTES # (AUTO) 1.5 K/uL (1.0-4.8); LYMPHOCYTES % (AUTO) 17.6 % (21.0-51.0); MEAN CORPUSCULAR HEMOGLOBIN 31.2 pg (27.0-33.0); MEAN CORPUSCULAR HGB CONC 33.2 g/dL (32.0-36.0); MEAN CORPUSCULAR VOLUME 94.1 fL (79-99); MONOCYTES # (AUTO) 0.7 K/uL (0.1-1.0); MONOCYTES % (AUTO) 7.9 % (3.0-13.0); NEUTROPHILS % (AUTO) 70.7 % (40.0-77.0); PLATELET COUNT (AUTO) 68 K/uL (130-400); RED BLOOD CELL COUNT(AUTO) 3.91 MIL/uL (4.50-6.20); RED CELL DISTRIBUTION WIDTH 14.6 % (11.0-15.5); WHITE BLOOD COUNT (AUTO) 8.5 K/uL (4.8-10.8)
[2024-10-08 06:48] LABS: CREATININE 0.7 mg/dL (0.5-1.3); MAGNESIUM 1.5 mg/dL (1.80-2.40); POTASSIUM 3.5 mmol/L (3.5-5.1)
[2024-10-08] MEDS: MAGNESIUM 2GM PREMIX 50ML 50 ML IV PRN (07:01)
[2024-10-08] MEDS: LIDOCAINE HCL-MPF 1% 2ML VIAL ONE (08:04)
--- NOTE | 2024-10-08 08:10 | NUR ---
JOHNSON GLOVER, RN AND 2D MYSQL DBA PRESENT FOR MYKE. FAMILY AND PT VERBALIZED UNDERSTANDING FOR PROCEDURE.
[2024-10-08] MEDS: BENZOCAINE 20% 57 GM SPRAY TP ONE (08:30)
[2024-10-08] MEDS: MIDAZOLAM HCL 1 MG/ML 2ML VIAL IVP ONE (08:41)
[2024-10-08] MEDS: LIDOCAINE HCL 2% VISCOUS 15 ML UDCUP PO ONE ×2 (08:42)
[2024-10-08] MEDS: FENTanyl CITRate PF 50 MCG/1 ML 2ML VIAL IVP ONE (08:42)
--- NOTE | 2024-10-08 08:45 | NUR ---
MYKE UNABLE TO TOLERATED MYKE, DR. SHAFER WILL RESCHEDULE MYKE TOMORROW 10/09/24 WITH ANESTHESIA AND PHYSICIAN SAMPLE DRILLER.
[2024-10-08 09:34] LABS: PLATELET MORPHOLOGY COMMENT DECREASED
--- NOTE | 2024-10-08 09:41 | PN ---
[facility] PROGRESS NOTE Date Patient Seen: Oct 08, 2024 Time of Visit: 09:41 Supervising Physician: Dr. 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 He is resting comfortably at this time, continues on vancomycin and Rocephin. Patient's white count today is within normal limits today 0.5, hemoglobin stable at 12.2. Patient's metabolic panel was unremarkable. Patient has no signs of respiratory distress, currently on room air and denies any pleuritic chest pain. Patient's lungs are clear to auscultation. At this time we will leave remainder of therapies to the primary team, pulmonary Services will sign off the case, thank you for allowing us to participate in the care of this patient. REVIEW OF SYSTEMS: 12 point ROS reviewed with patient. Pertinent positives mentioned above. Otherwise negative. PHYSICAL EXAM: GENERAL: alert, weak, awake oriented x 2, forgetful history of dementia HEENT: EOMI, Sclera non icteric, moist mucosa NECK: Supple, no JVD, trachea midline LUNGS: Clear breath sounds bilaterally. No wheezes HEART: Regular rate and rhythm. Normal S1 and S2, without murmurs ABD: Abdomen soft, nontender. Bowel sounds present EXT: No clubbing cyanosis or edema NEURO: Alert and oriented to person, follows commands Vital Signs (last 8hr) Date Time Temp Pulse Resp B/P (MAP) Pulse Ox O2 Delivery O2 Flow Rate FiO2 10/08/24 08:00 98.4 89 16 111/62 96 Room Air 21 10/08/24 03:49 98.1 96 16 129/73 98 Room Air LABS: Hematology Labs: Test 10/08/24 06:24 Range/Units White Blood Count 8.5 4.8-10.8 K/uL Red Blood Count 3.91 L 4.50-6.20 MIL/uL Hemoglobin 12.2 L 14.0-18.0 g/dL Hematocrit 36.8 L 42-54 % Mean Corpuscular Volume 94.1 79-99 fL Mean Corpuscular Hemoglobin 31.2 27.0-33.0 pg Mean Corpuscular Hemoglobin Concent 33.2 32.0-36.0 g/dL Red Cell Distribution Width 14.6 11.0-15.5 % Platelet Count 68 L 130-400 K/uL Mean Platelet Volume 10.5 7.5-10.5 fL Immature Granulocyte % (Auto) 0.4 0-1 % Neutrophils (%) (Auto) 70.7 40.0-77.0 % Lymphocytes (%) (Auto) 17.6 L 21.0-51.0 % Monocytes (%) (Auto) 7.9 3.0-13.0 % Eosinophils (%) (Auto) 3.2 0.0-8.0 % Basophils (%) (Auto) 0.2 0.0-5.0 % Neutrophils # (Auto) 6.0 1.8-7.7 K/uL Lymphocytes # (Auto) 1.5 1.0-4.8 K/uL Monocytes # (Auto) 0.7 0.1-1.0 K/uL Eosinophils # (Auto) 0.27 0.00-0.70 K/uL Basophils # (Auto) 0.02 0.00-0.20 K/uL Absolute Immature Granulocyte (auto 0.03 0-1 K/uL Nucleated Red Blood Cells 0.0 0.0-0.19 % Platelet Morphology Comment DECREASED Chemistry Labs: Test 10/08/24 06:24 10/08/24 05:37 Range/Units Sodium Level 139 136-145 mmol/L Potassium Level 3.5 3.5-5.1 mmol/L Chloride Level 104 101-111 mmol/L Carbon Dioxide Level 25 21-32 mmol/L Blood Urea Nitrogen 7 7-18 mg/dL Creatinine 0.7 0.5-1.3 mg/dL Glomerular Filtration Rate Calc 98 >90 mL/min Random Glucose 174 H 70-105 mg/dL Total Calcium 8.2 L 8.5-10.1 mg/dL Phosphorus Level 2.0 L 2.5-4.9 mg/dL Magnesium Level 1.50 L 1.80-2.40 mg/dL Whole Blood Glucose 170 H 70-110 MG/DL DIAGNOSTICS / RADIOLOGY RESULTS: [ ] PLAN NEURO: Minimize central acting medications as possible. Maintain fall precautions, adequate lighting during the day PULMONARY: Supplemental 02 as needed. Maintain aspiration precautions at all times CARDIOVASCULAR: Follow hemodynamics. Vital signs per facility protocol GI & NUTRITION: Continue with nutritional support. Continue stool softeners and laxatives as needed. KIDNEYS & ELECTROLYTES: Strict monitoring of intake, output and overall fluid balance. Avoid nephrotoxic medications to the extent possible. Medications to be dosed according to renal function. Monitor electrolytes and replace as needed ENDOCRINE: Maintain blood glucose between 100-180 at all times. Hypoglycemia protocol in place INFECTIOUS DISEASE: Trend temperature, WBC and procalcitonin level Follow cultures, deescalate antibiotics as soon as possible. Panculture if new onset fever ONCOLOGY/HEMATOLOGY/COAGULATION: Monitor for s/s of bleeding Monitor hemoglobin, coagulation studies as needed SKIN: Pressure ulcer prevention per facility protocol Specialty mattress ORTHO/REHAB: Continue PT/OT Prophylaxis: Continue GI and DVT prophylaxis Code Status: Full Resuscitation Disposition: TBD Other: Total patient care time exceeds 35 minutes excluding all procedures. RENETTA GRANADOS Oct 08, 2024 09:41
--- NOTE | 2024-10-08 16:13 | PN ---
[facility] PROGRESS NOTE Date of Service: Oct 08, 2024 Time of Service: 16:11 SUBJECTIVE: 10/06 No acute events overnight. Cultures positive for bacteremia 2/2 gram positive. Continue IV antibiotics. Repeat echo ordered to rule out endocarditis. ID recommending repeat MRI of spine as spinal lesion may be infectious. 10/07 acute events overnight. Cardiology recommending MYKE tomorrow, patient will be made NPO after midnight. MRI of the lumbar spine still pending, we will follow up. Patient given a lab holiday today, we will repeat tomorrow. We will order a repeat blood cultures tomorrow as well. 10/08 MYKE attempted today however was canceled, will follow up with cardiology. Patient said they will possibly attempt again tomorrow. Vitals and labs relatively unremarkable. Repeat blood cultures ordered, will follow up. Further recommendations per ID REVIEW OF SYSTEMS 12 point ROS negative unless noted in HPI PHYSICAL EXAM GENERAL APPEARANCE: The patient is awake, alert, and oriented, in no acute cardiopulmonary distress. NEUROLOGICAL: Cranial nerves II-XII grossly intact. Motor is 5/5 in bilateral upper and lower extremities proximal to distal. No sensory deficits. HEENT: Face is symmetric. Pupils are equal and reactive. Extraocular movements are intact. NECK: Supple. No JVD. No thyromegaly. No submental, submandibular, pre- /postauricular, occipital or supraclavicular lymphadenopathy. CHEST: Normal chest expansion. No Telemetry. LUNGS: Absence of any rales, rhonchi or any wheezing. CARDIOVASCULAR: Regular. S1 and S2 normal. No appreciable rubs, murmurs or gallops. ABDOMEN: Soft, nontender, and nondistended. There is no rebound, voluntary guarding, or rigidity. : Deferred. No Emmanuel. EXTREMITIES: Non-edematous and not cyanotic. No clubbing. Good capillary refill. SKIN: No skin breakdown. LABS: Laboratory: Test 10/08/24 11:30 10/08/24 06:24 10/07/24 07:05 Range/Units Whole Blood Glucose 161 H 70-110 MG/DL White Blood Count 8.5 4.8-10.8 K/uL Red Blood Count 3.91 L 4.50-6.20 MIL/uL Hemoglobin 12.2 L 14.0-18.0 g/dL Hematocrit 36.8 L 42-54 % Mean Corpuscular Volume 94.1 79-99 fL Mean Corpuscular Hemoglobin 31.2 27.0-33.0 pg Mean Corpuscular Hemoglobin Concent 33.2 32.0-36.0 g/dL Red Cell Distribution Width 14.6 11.0-15.5 % Platelet Count 68 L 130-400 K/uL Mean Platelet Volume 10.5 7.5-10.5 fL Immature Granulocyte % (Auto) 0.4 0-1 % Neutrophils (%) (Auto) 70.7 40.0-77.0 % Lymphocytes (%) (Auto) 17.6 L 21.0-51.0 % Monocytes (%) (Auto) 7.9 3.0-13.0 % Eosinophils (%) (Auto) 3.2 0.0-8.0 % Basophils (%) (Auto) 0.2 0.0-5.0 % Neutrophils # (Auto) 6.0 1.8-7.7 K/uL Lymphocytes # (Auto) 1.5 1.0-4.8 K/uL Monocytes # (Auto) 0.7 0.1-1.0 K/uL Eosinophils # (Auto) 0.27 0.00-0.70 K/uL Basophils # (Auto) 0.02 0.00-0.20 K/uL Absolute Immature Granulocyte (auto 0.03 0-1 K/uL Nucleated Red Blood Cells 0.0 0.0-0.19 % Platelet Morphology Comment DECREASED Sodium Level 139 136-145 mmol/L Potassium Level 3.5 3.5-5.1 mmol/L Chloride Level 104 101-111 mmol/L Carbon Dioxide Level 25 21-32 mmol/L Blood Urea Nitrogen 7 7-18 mg/dL Creatinine 0.7 0.5-1.3 mg/dL Glomerular Filtration Rate Calc 98 >90 mL/min Random Glucose 174 H 70-105 mg/dL Total Calcium 8.2 L 8.5-10.1 mg/dL Phosphorus Level 2.0 L 2.5-4.9 mg/dL Magnesium Level 1.50 L 1.80-2.40 mg/dL Vancomycin Level Trough 13.9 10.0-20.0 UG/ML Current Medications Medications (Trade) Dose Ordered Sig/Ann Marie Route PRN Reason Start Time Stop Time Status Last Admin Dose Admin Acetaminophen (TYLenol 325MG TAB) 650 mg Q4H PRN PO MILD PAIN (1-3) 10/05/24 06:00 11/04/24 05:59 Acetaminophen (TYLenol 325MG TAB) 650 mg Q6H PRN PO TEMPERATURE GREATER THAN 101.5 10/05/24 06:00 11/04/24 05:59 Ceftriaxone Sodium (ROCEphine 1G INJ) 1 gm Q24H IV 10/06/24 01:00 10/05/24 08:03 DC Ceftriaxone Sodium (Rocephin 2gm Inj) 2 gm Q24H IVPB 10/06/24 01:00 10/16/24 00:59 10/08/24 00:51 2 GM Dextrose (D50w) 50 ml AD PRN IV HYPOGLYCEMIA PROTOCOL 10/05/24 06:00 11/04/24 05:59 Doxycycline Hyclate 250 ml @ 250 mls/hr Q12H IV 10/05/24 06:00 10/06/24 08:34 DC 10/06/24 06:50 250 MLS/HR Famotidine (Pepcid 20mg Tab) 20 mg Q24H PO 10/05/24 09:00 11/04/24 08:59 10/08/24 09:52 20 MG Glucagon (Glucagon 1mg Kit) 1 mg AD PRN IM HYPOGLYCEMIA PROTOCOL 10/05/24 06:00 11/04/24 05:59 Insulin Human Regular (humuLIN R 100 UNIT/ML 3ML) INSULIN SLIDING SCAL... ACHS SQ 10/05/24 07:30 11/04/24 07:29 10/07/24 17:34 3 UNIT Magnesium Sulfate 50 ml @ 0 mls/hr PROTOCOL PRN IV OTHER [SEE ORDER COMMENTS] 10/05/24 06:00 11/04/24 05:59 10/08/24 07:01 25 MLS/HR Midodrine (PROAMatine 5 MG TABLET) 10 mg TID PO 10/05/24 06:30 11/04/24 06:29 10/08/24 09:52 10 MG Norepinephrine 250 ml @ 0 mls/hr PROTOCOL IV 10/05/24 03:00 10/05/24 02:57 DC Norepinephrine 250 ml @ 0 mls/hr PROTOCOL IV 10/05/24 03:00 10/05/24 21:58 DC 10/05/24 03:01 25.5 MLS/HR Ondansetron HCl (zoFRAN 4MG INJ) 4 mg Q6H PRN IV NAUSEA/VOMITING 10/05/24 06:00 11/04/24 05:59 Pharmacy Profile Note (Lace Assessment) 1 each AD MISC 10/05/24 18:00 10/05/24 18:13 DC Potassium Chloride 100 ml @ 100 mls/hr AD PRN IV POTASSIUM PROTOCOL 10/05/24 06:00 11/04/24 05:59 Potassium Chloride (K-Dur/Klor-Con 20meq) 20 meq AD PRN PO POTASSIUM PROTOCOL 10/05/24 06:00 11/04/24 05:59 Potassium Chloride (KCl 10% Elixir 20meq/15ml) 20 meq AD PRN PO POTASSIUM PROTOCOL 10/05/24 06:00 11/04/24 05:59 Sodium Chloride 1,000 ml @ 100 mls/hr Q10H IV 10/05/24 06:00 11/04/24 05:59 10/08/24 15:03 100 MLS/HR Vancomycin HCl (Vancomycin 750mg) 750 mg Q12H IVPB 10/06/24 08:00 10/16/24 07:59 10/08/24 09:52 750 MG Vancomycin HCl (Vancomycin Protocol) 1 each AD IV 10/05/24 17:00 10/19/24 16:59 DIAGNOSTICS / RADIOLOGY: [ ] ASSESSMENT: Severe sepsis with organ dysfunction of unknown source POA Septic shock POA Normocytic normochromic anemia POA Acute thrombocytopenia POA= Acute renal insufficiency POA Uncontrolled diabetes POA Coronary artery disease with CABG POA 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 b.i.d. for GI prophylaxis Continue insulin sliding scale AC & HS with hypoglycemia protocol MYKE pending MRI lumbar spine pending ID consulted, appreciate recommendations Cardiology consulted, appreciate recommendations Disposition: Pending MYKE, ID and cardiology recommendations TIMOTHY VENEGAS MD Oct 08, 2024 16:13
--- NOTE | 2024-10-08 22:58 | PN ---
INFECTIOUS DISEASE FOLLOWUP NOTE DATE OF SERVICE: 10/08/2024 SUBJECTIVE: The patient is seen and examined at bedside today. No fevers or chills. MYKE was attempted today, ____. MYKE will be done under anesthesia tomorrow. No cough, no hemoptysis. No bleeding tendency. No rashes or itchiness. Tolerating antibiotics. No depression, no suicidal ideation. PHYSICAL EXAMINATION: VITAL SIGNS: Temperature 97.4. EYES: No icterus. Pupils equal and reactive. HENT: No oral thrush seen. Moist oral mucosa. NECK: Supple. No JVD or thyromegaly. LUNGS: Good air entry. No rales. No rhonchi. CARDIOVASCULAR: S1 and S2 regular. No murmur heard. ABDOMEN: Soft, nontender. Bowel sound is present. CENTRAL NERVOUS SYSTEM: Awake, alert, oriented x 3. No focal deficits. SKIN: No rashes, no itchiness. LYMPHATIC: No peripheral lymphadenopathy. BACK: No definite or pressure ulcer. ASSESSMENT: A 74-year-old male with multiple problems, which include: * Sepsis. * Diabetes mellitus. * Chronic back pain. * Hypertension. * Obesity. * Thrombocytopenia. PLAN: * Continue present antibiotic regimen. * Continue antihypertensives. * Continue antidiabetic. * Continue nutritional support. * Continue pain management. * Monitor electrolytes. * The patient will be followed up closely. TID: [id number] RECEIPT: [id number]
[2024-10-09 03:38] VITALS: BP 142/77; PULSE 76; RESP 20; TEMP 98.5
[2024-10-09 06:20] LABS: BASOPHILS # (AUTO) 0.03 K/uL (0.00-0.20); BASOPHILS % (AUTO) 0.4 % (0.0-5.0); EOSINOPHILS # (AUTO) 0.24 K/uL (0.00-0.70); EOSINOPHILS % (AUTO) 2.9 % (0.0-8.0); HEMATOCRIT 36.1 % (42-54); IMMATURE GRANULOCYTE ABSOLUTE 0.02 K/uL (0-1); LYMPHOCYTES # (AUTO) 1.4 K/uL (1.0-4.8); MEAN CORPUSCULAR HEMOGLOBIN 31.5 pg (27.0-33.0); MEAN CORPUSCULAR HGB CONC 32.7 g/dL (32.0-36.0); MEAN CORPUSCULAR VOLUME 96.3 fL (79-99); MONOCYTES # (AUTO) 0.6 K/uL (0.1-1.0); MONOCYTES % (AUTO) 6.8 % (3.0-13.0); NEUTROPHILS % (AUTO) 72.7 % (40.0-77.0); PLATELET COUNT (AUTO) 65 K/uL (130-400); RED BLOOD CELL COUNT(AUTO) 3.75 MIL/uL (4.50-6.20); RED CELL DISTRIBUTION WIDTH 14.6 % (11.0-15.5); WHITE BLOOD COUNT (AUTO) 8.3 K/uL (4.8-10.8)
[2024-10-09 06:30] LABS: CREATININE 0.8 mg/dL (0.5-1.3); POTASSIUM 3.6 mmol/L (3.5-5.1)
[2024-10-09 08:25] VITALS: BP 132/72; PULSE 90; RESP 18; TEMP 98
[2024-10-09 11:59] VITALS: BP 122/60; PULSE 79; RESP 18; TEMP 98.1
[2024-10-09] MEDS ORDERED: ketaMINE 50MG/ML SYRINGE 50 MG/ML DISP.SYRIN ONE (12:15)
[2024-10-09] MEDS ORDERED: proPOFol 10 MG/ML 20ML VIAL IV ONE ×2 (12:15→12:19)
[2024-10-09] MEDS ORDERED: LIDOCAINE PF 100MG/5ML (2%) SYRINGE 5ML ONE (12:19)
[2024-10-09] MEDS: LIDOCAINE HCL 2% VISCOUS 15 ML UDCUP PO ONE (12:30)
--- NOTE | 2024-10-09 14:46 | PN ---
[facility] PROGRESS NOTE Date of Service: Oct 09, 2024 Time of Service: 14:44 SUBJECTIVE: 10/06 No acute events overnight. Cultures positive for bacteremia 2/2 gram positive. Continue IV antibiotics. Repeat echo ordered to rule out endocarditis. ID recommending repeat MRI of spine as spinal lesion may be infectious. 10/07 acute events overnight. Cardiology recommending MYKE tomorrow, patient will be made NPO after midnight. MRI of the lumbar spine still pending, we will follow up. Patient given a lab holiday today, we will repeat tomorrow. We will order a repeat blood cultures tomorrow as well. 10/08 MYKE attempted today however was canceled, will follow up with cardiology. Patient said they will possibly attempt again tomorrow. Vitals and labs relatively unremarkable. Repeat blood cultures ordered, will follow up. Further recommendations per ID 10/09 MYKE rescheduled to today, will follow up post procedure. Continue with IV antibiotics, repeat blood cultures pending, will follow up. Labs relatively unremarkable REVIEW OF SYSTEMS 12 point ROS negative unless noted in HPI PHYSICAL EXAM GENERAL APPEARANCE: The patient is awake, alert, and oriented, in no acute cardiopulmonary distress. NEUROLOGICAL: Cranial nerves II-XII grossly intact. Motor is 5/5 in bilateral upper and lower extremities proximal to distal. No sensory deficits. HEENT: Face is symmetric. Pupils are equal and reactive. Extraocular movements are intact. NECK: Supple. No JVD. No thyromegaly. No submental, submandibular, pre- /postauricular, occipital or supraclavicular lymphadenopathy. CHEST: Normal chest expansion. No Telemetry. LUNGS: Absence of any rales, rhonchi or any wheezing. CARDIOVASCULAR: Regular. S1 and S2 normal. No appreciable rubs, murmurs or gallops. ABDOMEN: Soft, nontender, and nondistended. There is no rebound, voluntary guarding, or rigidity. : Deferred. No Emmanuel. EXTREMITIES: Non-edematous and not cyanotic. No clubbing. Good capillary refill. SKIN: No skin breakdown. Vital Signs (last 8hr) Date Time Temp Pulse Resp B/P (MAP) Pulse Ox O2 Delivery O2 Flow Rate FiO2 10/09/24 11:59 98.1 79 18 122/60 95 Room Air 10/09/24 08:25 98.1 90 18 132/72 95 Room Air LABS: Laboratory: Test 10/09/24 06:06 10/09/24 05:31 10/08/24 19:04 10/08/24 06:24 Range/Units White Blood Count 8.3 4.8-10.8 K/uL Red Blood Count 3.75 L 4.50-6.20 MIL/uL Hemoglobin 11.8 L 14.0-18.0 g/dL Hematocrit 36.1 L 42-54 % Mean Corpuscular Volume 96.3 79-99 fL Mean Corpuscular Hemoglobin 31.5 27.0-33.0 pg Mean Corpuscular Hemoglobin Concent 32.7 32.0-36.0 g/dL Red Cell Distribution Width 14.6 11.0-15.5 % Platelet Count 65 L 130-400 K/uL Mean Platelet Volume 10.7 H 7.5-10.5 fL Immature Granulocyte % (Auto) 0.2 0-1 % Neutrophils (%) (Auto) 72.7 40.0-77.0 % Lymphocytes (%) (Auto) 17.0 L 21.0-51.0 % Monocytes (%) (Auto) 6.8 3.0-13.0 % Eosinophils (%) (Auto) 2.9 0.0-8.0 % Basophils (%) (Auto) 0.4 0.0-5.0 % Neutrophils # (Auto) 6.0 1.8-7.7 K/uL Lymphocytes # (Auto) 1.4 1.0-4.8 K/uL Monocytes # (Auto) 0.6 0.1-1.0 K/uL Eosinophils # (Auto) 0.24 0.00-0.70 K/uL Basophils # (Auto) 0.03 0.00-0.20 K/uL Absolute Immature Granulocyte (auto 0.02 0-1 K/uL Nucleated Red Blood Cells 0.0 0.0-0.19 % Sodium Level 140 136-145 mmol/L Potassium Level 3.6 3.5-5.1 mmol/L Chloride Level 105 101-111 mmol/L Carbon Dioxide Level 27 21-32 mmol/L Blood Urea Nitrogen 6 L 7-18 mg/dL Creatinine 0.8 0.5-1.3 mg/dL Glomerular Filtration Rate Calc 94 >90 mL/min Random Glucose 149 H 70-105 mg/dL Total Calcium 8.4 L 8.5-10.1 mg/dL Whole Blood Glucose 137 H 70-110 MG/DL Vancomycin Level Trough 12.7 10.0-20.0 UG/ML Platelet Morphology Comment DECREASED Phosphorus Level 2.0 L 2.5-4.9 mg/dL Magnesium Level 1.50 L 1.80-2.40 mg/dL Current Medications Medications (Trade) Dose Ordered Sig/Ann Marie Route PRN Reason Start Time Stop Time Status Last Admin Dose Admin Acetaminophen (TYLenol 325MG TAB) 650 mg Q4H PRN PO MILD PAIN (1-3) 10/05/24 06:00 11/04/24 05:59 Acetaminophen (TYLenol 325MG TAB) 650 mg Q6H PRN PO TEMPERATURE GREATER THAN 101.5 10/05/24 06:00 11/04/24 05:59 Ceftriaxone Sodium (ROCEphine 1G INJ) 1 gm Q24H IV 10/06/24 01:00 10/05/24 08:03 DC Ceftriaxone Sodium (Rocephin 2gm Inj) 2 gm Q24H IVPB 10/06/24 01:00 10/16/24 00:59 10/09/24 01:03 2 GM Dextrose (D50w) 50 ml AD PRN IV HYPOGLYCEMIA PROTOCOL 10/05/24 06:00 11/04/24 05:59 Doxycycline Hyclate 250 ml @ 250 mls/hr Q12H IV 10/05/24 06:00 10/06/24 08:34 DC 10/06/24 06:50 250 MLS/HR Famotidine (Pepcid 20mg Tab) 20 mg Q24H PO 10/05/24 09:00 11/04/24 08:59 10/08/24 09:52 20 MG Glucagon (Glucagon 1mg Kit) 1 mg AD PRN IM HYPOGLYCEMIA PROTOCOL 10/05/24 06:00 11/04/24 05:59 Insulin Human Regular (humuLIN R 100 UNIT/ML 3ML) INSULIN SLIDING SCAL... ACHS SQ 10/05/24 07:30 11/04/24 07:29 10/08/24 20:33 3 UNIT Magnesium Sulfate 50 ml @ 0 mls/hr PROTOCOL PRN IV OTHER [SEE ORDER COMMENTS] 10/05/24 06:00 11/04/24 05:59 10/08/24 07:01 25 MLS/HR Midodrine (PROAMatine 5 MG TABLET) 10 mg TID PO 10/05/24 06:30 11/04/24 06:29 10/08/24 20:32 10 MG Norepinephrine 250 ml @ 0 mls/hr PROTOCOL IV 10/05/24 03:00 10/05/24 02:57 DC Norepinephrine 250 ml @ 0 mls/hr PROTOCOL IV 10/05/24 03:00 10/05/24 21:58 DC 10/05/24 03:01 25.5 MLS/HR Ondansetron HCl (zoFRAN 4MG INJ) 4 mg Q6H PRN IV NAUSEA/VOMITING 10/05/24 06:00 11/04/24 05:59 Pharmacy Profile Note (Lace Assessment) 1 each AD MISC 10/05/24 18:00 10/05/24 18:13 DC Potassium Chloride 100 ml @ 100 mls/hr AD PRN IV POTASSIUM PROTOCOL 10/05/24 06:00 11/04/24 05:59 Potassium Chloride (K-Dur/Klor-Con 20meq) 20 meq AD PRN PO POTASSIUM PROTOCOL 10/05/24 06:00 11/04/24 05:59 Potassium Chloride (KCl 10% Elixir 20meq/15ml) 20 meq AD PRN PO POTASSIUM PROTOCOL 10/05/24 06:00 11/04/24 05:59 Sodium Chloride 1,000 ml @ 100 mls/hr Q10H IV 10/05/24 06:00 11/04/24 05:59 10/09/24 00:17 100 MLS/HR Vancomycin HCl (Vancomycin 750mg) 750 mg Q12H IVPB 10/06/24 08:00 10/16/24 07:59 10/09/24 10:53 750 MG Vancomycin HCl (Vancomycin Protocol) 1 each AD IV 10/05/24 17:00 10/19/24 16:59 DIAGNOSTICS / RADIOLOGY: [ ] ASSESSMENT: Severe sepsis with organ dysfunction of unknown source POA Septic shock POA Normocytic normochromic anemia POA Acute thrombocytopenia POA= Acute renal insufficiency POA Uncontrolled diabetes POA Coronary artery disease with CABG POA 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 b.i.d. for GI prophylaxis Continue insulin sliding scale AC & HS with hypoglycemia protocol MYKE pending MRI lumbar spine pending ID consulted, appreciate recommendations Cardiology consulted, appreciate recommendations Disposition: Pending MYKE, ID and cardiology recommendations TIMOTHY VENEGAS MD Oct 09, 2024 14:46
--- NOTE | 2024-10-09 15:15 | PN ---
INFECTIOUS DISEASE PROGRESS NOTE Date of Service: Oct 09, 2024 SUBJECTIVE: This is a 74-year-old male patient who was seen and examined at bedside in room 326. Patient is awake and able to answer questions appropriately. The final blood culture results are positive for Staphylococcus epidermidis and pending a MYKE to rule out endocarditis today. No fever, temperature is 98.2 and the WBC is 8.0. Patient will continue on ceftriaxone and vancomycin. PHYSICAL EXAM EYES: Anicteric. Pupils equal and reactive. HENT: No oral thrush seen, moist Oral mucosa NECK: Supple, no JVD or thyromegaly. LUNGS: Good air entry. No rales, no rhonchi. CARDIOVASCULAR: S1, S2 regular. No murmur heard. ABDOMEN: Soft, non tender, bowel sounds present, no organomegaly. CENTRAL NERVOUS SYSTEM: Awake, alert, oriented x 3. SKIN: No rashes, no swelling. LYMPHATICS: No peripheral lymphadenopathy MUSCULOSKELETAL: No joint swelling, erythema or tenderness. EXTREMITIES: No cyanosis or clubbing BACK: No deformity, no pressure ulcer. GENITOURINARY: No dysuria or hematuria Vital Sign (Last 12 Hours) 10/09/24 10/09/24 10/09/24 03:38 08:25 11:59 Temp 98.4 98.1 98.1 Pulse 76 90 79 Resp 20 18 18 B/P (MAP) 142/77 132/72 122/60 Pulse Ox 97 95 95 O2 Delivery Room Air Room Air Room Air Intake & Output (last 24hrs) 10/08/24 10/08/24 10/09/24 15:00 23:00 07:00 Intake Total 400 ml 500 ml Balance 400 ml 500 ml LABS: Laboratory: Test 10/09/24 06:06 10/09/24 05:31 10/08/24 19:04 10/08/24 06:24 Range/Units White Blood Count 8.3 4.8-10.8 K/uL Red Blood Count 3.75 L 4.50-6.20 MIL/uL Hemoglobin 11.8 L 14.0-18.0 g/dL Hematocrit 36.1 L 42-54 % Mean Corpuscular Volume 96.3 79-99 fL Mean Corpuscular Hemoglobin 31.5 27.0-33.0 pg Mean Corpuscular Hemoglobin Concent 32.7 32.0-36.0 g/dL Red Cell Distribution Width 14.6 11.0-15.5 % Platelet Count 65 L 130-400 K/uL Mean Platelet Volume 10.7 H 7.5-10.5 fL Immature Granulocyte % (Auto) 0.2 0-1 % Neutrophils (%) (Auto) 72.7 40.0-77.0 % Lymphocytes (%) (Auto) 17.0 L 21.0-51.0 % Monocytes (%) (Auto) 6.8 3.0-13.0 % Eosinophils (%) (Auto) 2.9 0.0-8.0 % Basophils (%) (Auto) 0.4 0.0-5.0 % Neutrophils # (Auto) 6.0 1.8-7.7 K/uL Lymphocytes # (Auto) 1.4 1.0-4.8 K/uL Monocytes # (Auto) 0.6 0.1-1.0 K/uL Eosinophils # (Auto) 0.24 0.00-0.70 K/uL Basophils # (Auto) 0.03 0.00-0.20 K/uL Absolute Immature Granulocyte (auto 0.02 0-1 K/uL Nucleated Red Blood Cells 0.0 0.0-0.19 % Sodium Level 140 136-145 mmol/L Potassium Level 3.6 3.5-5.1 mmol/L Chloride Level 105 101-111 mmol/L Carbon Dioxide Level 27 21-32 mmol/L Blood Urea Nitrogen 6 L 7-18 mg/dL Creatinine 0.8 0.5-1.3 mg/dL Glomerular Filtration Rate Calc 94 >90 mL/min Random Glucose 149 H 70-105 mg/dL Total Calcium 8.4 L 8.5-10.1 mg/dL Whole Blood Glucose 137 H 70-110 MG/DL Vancomycin Level Trough 12.7 10.0-20.0 UG/ML Platelet Morphology Comment DECREASED Phosphorus Level 2.0 L 2.5-4.9 mg/dL Magnesium Level 1.50 L 1.80-2.40 mg/dL DIAGNOSTICS / RADIOLOGY: PATIENT: SHANDA SALAS ACCT: [id number] [facility] U: [id number] AGE/SX: 74/M ROOM: [facility] RE10/05/[address]: PHONG PORRAS MD : 1950 BED: 1 DIS: STATUS: ADM IN TLOC: SPEC: [id number] MICHELLE: 10/05/24 STATUS: COMP REQ: [id number] RECD: 10/05/[address] [facility] [address]: ROCKY FLORES MD SOURCE: BLOOD ENTR: 10/05/[address]: SELF,REFERRAL [facility]: BLOOD ORDERED: AERO ID & SENS Procedure Result Jose Alejandro Date-Time AEROBIC ID & SENSITIVITIES Final 10/08/24-628 [facility] DESCRIPTION: DAY 1: GRAM STAIN FROM BLOOD CULTURE BOTTLE GRAM POSITIVE COCCI AEROBIC BOTTLE ISOLATION IN PROGRESS DAY 2: GRAM POSITIVE COCCI IN CLUSTERS COAGULASE NEGATIVE STAPHYLOCOCCUS IDENTIFICATION AND SENSITIVITY TO FOLLOW STAPHYLOCOCCUS EPIDERMIDIS ROBERTO CASTELLANO M.I.CStef RX --------- ---- CLINDAMYCIN <=0.25 S ERYTHROMYCIN >4 R GENTAMICIN <=4 S VANCOMYCIN 1 S OXACILLIN AMRITA >2 R RIFAMPIN <=1 S TETRACYCLINE <=4 S TRIMETHOPRIM/SUFLAMETHOXAZOLE 05/07 S ASSESSMENT: Staphylococcus epidermidis bacteremia. Sepsis. Thrombocytopenic. Chronic back pain. Diabetes mellitus. Hypertension. PLAN: Continue ceftriaxone. Continue vancomycin per pharmacy protocol. We will follow up on the repeat blood cultures. Continue antidiabetic. Continue pain management. Pending a MYKE to be done today. This case was reviewed and discussed with my supervising physician and the above assessment and plan was formulated and agreed upon. ATTESTATION BY PHYSICIAN I have seen and examined the patient. I reviewed the documentation, medical decision making, and treatment plan as noted by the mid-level provider above. I agree with the findings and plan of care. JIMY VARGAS MD, MIRTA L [facility] Oct 09, 2024 15:15
[2024-10-09 16:57] VITALS: BP 150/72; PULSE 88; RESP 18; TEMP 98
--- NOTE | 2024-10-09 16:59 | HMCSR ---
APPROVED REPORT EXAM: Transesophageal echocardiogram with color flow Doppler. INDICATION ICD: Bacteremia R78.81 Reason For Test : Rule out endocarditis. PROCEDURE After obtaining informed consent, patient underwent transesophageal echo in the Patient Room 326. 15 mL 2% Viscous Lidocaine was given as a topical anesthetic prior to the administration of the consc ious sedation. Type of Sedation: General Anesthesia Sedation was administered by GAGAN Saab. Sedation was achieved with refer to patient chart intravenously. Transesophageal probe was inserted and advanced into esophagus without difficulty by Dr. Travis Balderas. MYKE was performed and images were obtained, probe was removed without complications. Throughout the procedure, the blood pressure, pulse oximetry, cardiac rhythm, and rate were monitored . The patient tolerated the procedure without adverse effects. Recovery from conscious sedation was une ventful and vital signs were stable. Left Ventricle Left ventricular cavity size is normal. There is normal left ventricular wall thickness. LVEF is 45-5 0%. Right Ventricle The right ventricle is normal size. The right ventricular systolic function is normal. Atria The left atrial size is normal. No thrombus is visualized in the left atrium or appendage. Aortic Valve Bioprosthetic aortic valve is present. Trace aortic regurgitation. There is no aortic valvular vegeta tion. There is no aortic valvular stenosis. Mitral Valve The mitral valve is normal in structure and function. Mitral regurgitation is moderate. No mitral sidney ve vegetation. There is no mitral valve stenosis. Tricuspid Valve The tricuspid valve is normal in structure and function. There is no tricuspid valve regurgitation no aimee. No tricuspid valve vegetation. Pulmonic Valve Pulmonic valve is not well visualized. Great Vessels The aortic root is normal in size. Pericardium No pericardial effusion. Conclusion The left atrial size is normal. No thrombus is visualized in the left atrium or appendage. Bioprosthetic aortic valve is present. There is no aortic valvular vegetation. Trace aortic regurgitation. Mitral regurgitation is moderate. No pericardial effusion.
[2024-10-09 19:00] VITALS: BP 144/72; PULSE 101; RESP 20; TEMP 98.3
[2024-10-09 23:56] VITALS: BP 122/65; PULSE 94; RESP 20; TEMP 98.9
[2024-10-10 04:00] VITALS: BP 118/65; PULSE 98; RESP 20; TEMP 99.2
[2024-10-10 06:42] LABS: BASOPHILS # (AUTO) 0.03 K/uL (0.00-0.20); BASOPHILS % (AUTO) 0.4 % (0.0-5.0); EOSINOPHILS # (AUTO) 0.23 K/uL (0.00-0.70); EOSINOPHILS % (AUTO) 2.9 % (0.0-8.0); HEMATOCRIT 30.3 % (42-54); IMMATURE GRANULOCYTE ABSOLUTE 0.03 K/uL (0-1); LYMPHOCYTES # (AUTO) 1.1 K/uL (1.0-4.8); LYMPHOCYTES % (AUTO) 13.9 % (21.0-51.0); MEAN CORPUSCULAR HEMOGLOBIN 31.7 pg (27.0-33.0); MEAN CORPUSCULAR VOLUME 93.2 fL (79-99); MONOCYTES # (AUTO) 0.6 K/uL (0.1-1.0); MONOCYTES % (AUTO) 7.5 % (3.0-13.0); NEUTROPHILS % (AUTO) 74.9 % (40.0-77.0); PLATELET COUNT (AUTO) 62 K/uL (130-400); RED BLOOD CELL COUNT(AUTO) 3.25 MIL/uL (4.50-6.20); RED CELL DISTRIBUTION WIDTH 14.6 % (11.0-15.5)
[2024-10-10 07:07] LABS: CREATININE 0.7 mg/dL (0.5-1.3); POTASSIUM 3.6 mmol/L (3.5-5.1); VANCOMYCIN TROUGH 13.1 UG/ML (10.0-20.0)
[2024-10-10 07:50] VITALS: BP 105/58; PULSE 86; RESP 20; TEMP 98.1
[2024-10-10] MEDS: acetaMINOPHEN 325 MG TAB PO PRN (10:50)
[2024-10-10 12:00] VITALS: BP 150/71; PULSE 79; RESP 18; TEMP 98.3
--- NOTE | 2024-10-10 15:41 | PN ---
[facility] PROGRESS NOTE Date of Service: Oct 10, 2024 Time of Service: 15:37 SUBJECTIVE: 10/06 No acute events overnight. Cultures positive for bacteremia 2/2 gram positive. Continue IV antibiotics. Repeat echo ordered to rule out endocarditis. ID recommending repeat MRI of spine as spinal lesion may be infectious. 10/07 acute events overnight. Cardiology recommending MYKE tomorrow, patient will be made NPO after midnight. MRI of the lumbar spine still pending, we will follow up. Patient given a lab holiday today, we will repeat tomorrow. We will order a repeat blood cultures tomorrow as well. 10/08 MYKE attempted today however was canceled, will follow up with cardiology. Patient said they will possibly attempt again tomorrow. Vitals and labs relatively unremarkable. Repeat blood cultures ordered, will follow up. Further recommendations per ID 10/09 MYKE rescheduled to today, will follow up post procedure. Continue with IV antibiotics, repeat blood cultures pending, will follow up. Labs relatively unremarkable 10/10 MYKE completed, no evidence of endocarditis noted. Pending solara placement, vitals and labs relatively unremarkable. Repeat blood cultures are no growth to date REVIEW OF SYSTEMS 12 point ROS negative unless noted in HPI PHYSICAL EXAM GENERAL APPEARANCE: The patient is awake, alert, and oriented, in no acute cardiopulmonary distress. NEUROLOGICAL: Cranial nerves II-XII grossly intact. Motor is 5/5 in bilateral upper and lower extremities proximal to distal. No sensory deficits. HEENT: Face is symmetric. Pupils are equal and reactive. Extraocular movements are intact. NECK: Supple. No JVD. No thyromegaly. No submental, submandibular, pre- /postauricular, occipital or supraclavicular lymphadenopathy. CHEST: Normal chest expansion. No Telemetry. LUNGS: Absence of any rales, rhonchi or any wheezing. CARDIOVASCULAR: Regular. S1 and S2 normal. No appreciable rubs, murmurs or gallops. ABDOMEN: Soft, nontender, and nondistended. There is no rebound, voluntary guarding, or rigidity. : Deferred. No Emmanuel. EXTREMITIES: Non-edematous and not cyanotic. No clubbing. Good capillary refill. SKIN: No skin breakdown. Vital Signs (last 8hr) Date Time Temp Pulse Resp B/P (MAP) Pulse Ox O2 Delivery O2 Flow Rate FiO2 10/10/24 12:00 98.2 79 18 150/71 97 Room Air 10/10/24 07:50 98.1 86 20 105/58 99 Room Air LABS: Laboratory: Test 10/10/24 11:28 10/10/24 06:21 10/09/24 20:12 Range/Units Whole Blood Glucose 211 #H 70-110 MG/DL White Blood Count 8.0 4.8-10.8 K/uL Red Blood Count 3.25 L 4.50-6.20 MIL/uL Hemoglobin 10.3 L 14.0-18.0 g/dL Hematocrit 30.3 L 42-54 % Mean Corpuscular Volume 93.2 79-99 fL Mean Corpuscular Hemoglobin 31.7 27.0-33.0 pg Mean Corpuscular Hemoglobin Concent 34.0 32.0-36.0 g/dL Red Cell Distribution Width 14.6 11.0-15.5 % Platelet Count 62 L 130-400 K/uL Mean Platelet Volume 11.1 H 7.5-10.5 fL Immature Granulocyte % (Auto) 0.4 0-1 % Neutrophils (%) (Auto) 74.9 40.0-77.0 % Lymphocytes (%) (Auto) 13.9 L 21.0-51.0 % Monocytes (%) (Auto) 7.5 3.0-13.0 % Eosinophils (%) (Auto) 2.9 0.0-8.0 % Basophils (%) (Auto) 0.4 0.0-5.0 % Neutrophils # (Auto) 6.0 1.8-7.7 K/uL Lymphocytes # (Auto) 1.1 1.0-4.8 K/uL Monocytes # (Auto) 0.6 0.1-1.0 K/uL Eosinophils # (Auto) 0.23 0.00-0.70 K/uL Basophils # (Auto) 0.03 0.00-0.20 K/uL Absolute Immature Granulocyte (auto 0.03 0-1 K/uL Nucleated Red Blood Cells 0.0 0.0-0.19 % Sodium Level 141 136-145 mmol/L Potassium Level 3.6 3.5-5.1 mmol/L Chloride Level 107 101-111 mmol/L Carbon Dioxide Level 28 21-32 mmol/L Blood Urea Nitrogen 8 7-18 mg/dL Creatinine 0.7 0.5-1.3 mg/dL Glomerular Filtration Rate Calc 98 >90 mL/min Random Glucose 136 H 70-105 mg/dL Total Calcium 8.1 L 8.5-10.1 mg/dL Vancomycin Level Trough 13.1 10.0-20.0 UG/ML Bedside Glucose Comment Notified Nurse Current Medications Medications (Trade) Dose Ordered Sig/Ann Marie Route PRN Reason Start Time Stop Time Status Last Admin Dose Admin Acetaminophen (TYLenol 325MG TAB) 650 mg Q4H PRN PO MILD PAIN (1-3) 10/05/24 06:00 11/04/24 05:59 Acetaminophen (TYLenol 325MG TAB) 650 mg Q6H PRN PO TEMPERATURE GREATER THAN 101.5 10/05/24 06:00 11/04/24 05:59 10/10/24 10:50 650 MG Ceftriaxone Sodium (ROCEphine 1G INJ) 1 gm Q24H IV 10/06/24 01:00 10/05/24 08:03 DC Ceftriaxone Sodium (Rocephin 2gm Inj) 2 gm Q24H IVPB 10/06/24 01:00 10/16/24 00:59 10/10/24 00:31 2 GM Dextrose (D50w) 50 ml AD PRN IV HYPOGLYCEMIA PROTOCOL 10/05/24 06:00 11/04/24 05:59 Doxycycline Hyclate 250 ml @ 250 mls/hr Q12H IV 10/05/24 06:00 10/06/24 08:34 DC 10/06/24 06:50 250 MLS/HR Famotidine (Pepcid 20mg Tab) 20 mg Q24H PO 10/05/24 09:00 11/04/24 08:59 10/10/24 10:50 20 MG Glucagon (Glucagon 1mg Kit) 1 mg AD PRN IM HYPOGLYCEMIA PROTOCOL 10/05/24 06:00 11/04/24 05:59 Insulin Human Regular (humuLIN R 100 UNIT/ML 3ML) INSULIN SLIDING SCAL... ACHS SQ 10/05/24 07:30 11/04/24 07:29 10/10/24 14:25 3 UNIT Magnesium Sulfate 50 ml @ 0 mls/hr PROTOCOL PRN IV OTHER [SEE ORDER COMMENTS] 10/05/24 06:00 11/04/24 05:59 10/08/24 07:01 25 MLS/HR Midodrine (PROAMatine 5 MG TABLET) 10 mg TID PO 10/05/24 06:30 11/04/24 06:29 10/10/24 10:51 10 MG Norepinephrine 250 ml @ 0 mls/hr PROTOCOL IV 10/05/24 03:00 10/05/24 02:57 DC Norepinephrine 250 ml @ 0 mls/hr PROTOCOL IV 10/05/24 03:00 10/05/24 21:58 DC 10/05/24 03:01 25.5 MLS/HR Ondansetron HCl (zoFRAN 4MG INJ) 4 mg Q6H PRN IV NAUSEA/VOMITING 10/05/24 06:00 11/04/24 05:59 Pharmacy Profile Note (Lace Assessment) 1 each AD MISC 10/05/24 18:00 10/05/24 18:13 DC Potassium Chloride 100 ml @ 100 mls/hr AD PRN IV POTASSIUM PROTOCOL 10/05/24 06:00 11/04/24 05:59 Potassium Chloride (K-Dur/Klor-Con 20meq) 20 meq AD PRN PO POTASSIUM PROTOCOL 10/05/24 06:00 11/04/24 05:59 Potassium Chloride (KCl 10% Elixir 20meq/15ml) 20 meq AD PRN PO POTASSIUM PROTOCOL 10/05/24 06:00 11/04/24 05:59 Sodium Chloride 1,000 ml @ 100 mls/hr Q10H IV 10/05/24 06:00 11/04/24 05:59 10/09/24 00:17 100 MLS/HR Vancomycin HCl (Vancomycin 750mg) 750 mg Q12H IVPB 10/06/24 08:00 10/16/24 07:59 10/10/24 10:58 750 MG Vancomycin HCl (Vancomycin Protocol) 1 each AD IV 10/05/24 17:00 10/19/24 16:59 DIAGNOSTICS / RADIOLOGY: [ ] ASSESSMENT: Severe sepsis secondary to gram positive bacteremia, POA Septic shock, resolved POA Normocytic normochromic anemia POA Acute thrombocytopenia POA Acute renal insufficiency, resolved POA DM2 last A1C 8.9, POA Coronary artery disease with CABG POA 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 b.i.d. for GI prophylaxis Continue insulin sliding scale AC & HS with hypoglycemia protocol ID consulted, appreciate recommendations Cardiology consulted, appreciate recommendations Disposition: Pending Solara placement TIMOTHY VENEGAS MD Oct 10, 2024 15:41
--- NOTE | 2024-10-10 16:49 | HMCIMG ---
US ABD LIMITED/ABD WALL REASON: EVAL IVC DUE TO DEHYDRATION. COMPARISON: None TECHNIQUE: Images of IVC was obtained per referring physician request. FINDINGS: Inferior vena cava is seen. IMPRESSION: Findings as described above.
[2024-10-10 17:09] VITALS: BP 123/63; PULSE 77; RESP 18; TEMP 98.8
--- NOTE | 2024-10-10 17:10 | PN ---
INFECTIOUS DISEASE PROGRESS NOTE Date of Service: Oct 10, 2024 SUBJECTIVE: This is a 74-year-old male patient who was seen and examined at bedside in room 326. Patient is awake and alert. Patient is status post MYKE which was negative for endocarditis. The repeat blood cultures are negative for the past 48 hours, we will follow up on the final results. We will place midline and continue on ceftriaxone and vancomycin. PHYSICAL EXAM EYES: Anicteric. Pupils equal and reactive. HENT: No oral thrush seen, moist Oral mucosa. NECK: Supple, no JVD or thyromegaly. LUNGS: Good air entry. No rales, no rhonchi. CARDIOVASCULAR: S1, S2 regular. No murmur heard. ABDOMEN: Soft, non tender, bowel sounds present, no organomegaly. CENTRAL NERVOUS SYSTEM: Awake, alert, oriented x 3. SKIN: No rashes, no swelling. LYMPHATICS: No peripheral lymphadenopathy MUSCULOSKELETAL: No joint swelling, erythema or tenderness. EXTREMITIES: No cyanosis or clubbing BACK: No deformity, no pressure ulcer. GENITOURINARY: No dysuria or hematuria. Vital Sign (Last 12 Hours) 10/10/24 10/10/24 07:50 12:00 Temp 98.1 98.2 Pulse 86 79 Resp 20 18 B/P (MAP) 105/58 150/71 Pulse Ox 99 97 O2 Delivery Room Air Room Air Intake & Output (last 24hrs) 10/09/24 10/09/24 10/10/24 15:00 23:00 07:00 Intake Total 220 ml Output Total 300 ml Balance 220 ml -300 ml LABS: Laboratory: Test 10/10/24 16:05 10/10/24 06:21 10/09/24 20:12 Range/Units Whole Blood Glucose 160 H 70-110 MG/DL White Blood Count 8.0 4.8-10.8 K/uL Red Blood Count 3.25 L 4.50-6.20 MIL/uL Hemoglobin 10.3 L 14.0-18.0 g/dL Hematocrit 30.3 L 42-54 % Mean Corpuscular Volume 93.2 79-99 fL Mean Corpuscular Hemoglobin 31.7 27.0-33.0 pg Mean Corpuscular Hemoglobin Concent 34.0 32.0-36.0 g/dL Red Cell Distribution Width 14.6 11.0-15.5 % Platelet Count 62 L 130-400 K/uL Mean Platelet Volume 11.1 H 7.5-10.5 fL Immature Granulocyte % (Auto) 0.4 0-1 % Neutrophils (%) (Auto) 74.9 40.0-77.0 % Lymphocytes (%) (Auto) 13.9 L 21.0-51.0 % Monocytes (%) (Auto) 7.5 3.0-13.0 % Eosinophils (%) (Auto) 2.9 0.0-8.0 % Basophils (%) (Auto) 0.4 0.0-5.0 % Neutrophils # (Auto) 6.0 1.8-7.7 K/uL Lymphocytes # (Auto) 1.1 1.0-4.8 K/uL Monocytes # (Auto) 0.6 0.1-1.0 K/uL Eosinophils # (Auto) 0.23 0.00-0.70 K/uL Basophils # (Auto) 0.03 0.00-0.20 K/uL Absolute Immature Granulocyte (auto 0.03 0-1 K/uL Nucleated Red Blood Cells 0.0 0.0-0.19 % Sodium Level 141 136-145 mmol/L Potassium Level 3.6 3.5-5.1 mmol/L Chloride Level 107 101-111 mmol/L Carbon Dioxide Level 28 21-32 mmol/L Blood Urea Nitrogen 8 7-18 mg/dL Creatinine 0.7 0.5-1.3 mg/dL Glomerular Filtration Rate Calc 98 >90 mL/min Random Glucose 136 H 70-105 mg/dL Total Calcium 8.1 L 8.5-10.1 mg/dL Vancomycin Level Trough 13.1 10.0-20.0 UG/ML Bedside Glucose Comment Notified Nurse DIAGNOSTICS / RADIOLOGY: PATIENT: SHANDA SALAS ACCT: [id number] [facility] U: [id number] AGE/SX: 74/M ROOM: [facility] RE10/05/[address]: PHONG PORRAS MD : 1950 BED: 1 DIS: STATUS: ADM IN TLOC: SPEC: [id number] MICHELLE: 10/05/24 STATUS: REID REQ: [id number] RECD: 10/05/24 [facility] DR: ROCKY FLORES MD SOURCE: BLOOD ENTR: 10/05/24-[address] [facility] [address]: SELF,REFERRAL [facility]: BLOOD ORDERED: AERO ID & SENS Procedure Result Jose Alejandro Date-Time AEROBIC ID & SENSITIVITIES Final 10/08/24-628 MRL COLONY DESCRIPTION: DAY 1: GRAM STAIN FROM BLOOD CULTURE BOTTLE GRAM POSITIVE COCCI AEROBIC BOTTLE ISOLATION IN PROGRESS DAY 2: GRAM POSITIVE COCCI IN CLUSTERS COAGULASE NEGATIVE STAPHYLOCOCCUS IDENTIFICATION AND SENSITIVITY TO FOLLOW STAPHYLOCOCCUS EPIDERMIDIS STA EPIDER M.I.C. RX --------- ---- CLINDAMYCIN <=0.25 S ERYTHROMYCIN >4 R GENTAMICIN <=4 S VANCOMYCIN 1 S OXACILLIN AMRITA >2 R RIFAMPIN <=1 S TETRACYCLINE <=4 S TRIMETHOPRIM/SUFLAMETHOXAZOLE 05/07 S ASSESSMENT: Staphylococcus epidermidis bacteremia, s/p MYKE with negative findings for endocarditis. Sepsis. Thrombocytopenic. Chronic back pain. Diabetes mellitus. Hypertension. PLAN: Place midline. Continue ceftriaxone. Continue vancomycin per pharmacy protocol. We will follow up on the repeat blood cultures. Continue antidiabetic. Continue pain management. This case was reviewed and discussed with my supervising physician and the above assessment and plan was formulated and agreed upon. ATTESTATION BY PHYSICIAN I have seen and examined the patient. I reviewed the documentation, medical decision making, and treatment plan as noted by the mid-level provider above. I agree with the findings and plan of care. JIMY VARGAS MD, MIRTA L [facility] Oct 10, 2024 17:09
[2024-10-10 20:00] VITALS: BP 146/71; PULSE 82; RESP 18; TEMP 99.1
[2024-10-10 21:09] LABS: SPOTTED FEVER GROUP IGG <1:64 (Neg:<1:64); SPOTTED FEVER GROUP IGM <1:64 (Neg:<1:64)
[2024-10-11] VITALS (7 sets, daily range): BP systolic 101–156; BP diastolic 66–79; PULSE 83–95; RESP 17–20; TEMP 98.4–100; O2SAT 95–98
[2024-10-11 07:14] LABS: INR 0.98 (0.85-1.15); PROTHROMBIN TIME 10.4 SEC (9.6-11.6)
[2024-10-11 07:15] LABS: PARTIAL THROMBOPLASTIN TIME 33.6 SEC (26.3-35.5)
--- NOTE | 2024-10-11 16:17 | NUR ---
1400 DOSE OF MIDODRINE NOT ADMINISTERED TO PREVENT HYPERTENSION. BLOOD PRESSURE PREVIOUSLY 131/72. BLOOD PRESSURE NOW 156/78.
--- NOTE | 2024-10-11 16:18 | PN ---
INFECTIOUS DISEASE PROGRESS NOTE Date of Service: Oct 11, 2024 SUBJECTIVE: This is a 74-year-old male patient who was seen and examined at bedside in room 326. Patient is awake, alert and oriented. Patient had a low-grade temperature of a 100.4 at midnight last night but he is afebrile this morning with a temperature of 98.4. No growth reported on the repeat blood cultures yet. Midline has been placed and patient continues on ceftriaxone and vancomycin. Patient has been referred to [facility] and pending insurance approval. PHYSICAL EXAM EYES: Anicteric. Pupils equal and reactive. HENT: No oral thrush seen, moist Oral mucosa. NECK: Supple, no JVD or thyromegaly. LUNGS: Good air entry. No rales, no rhonchi. CARDIOVASCULAR: S1, S2 regular. No murmur heard. ABDOMEN: Soft, non tender, bowel sounds present, no organomegaly. CENTRAL NERVOUS SYSTEM: Awake, alert, oriented x 3. SKIN: No rashes, no swelling. LYMPHATICS: No peripheral lymphadenopathy MUSCULOSKELETAL: No joint swelling, erythema or tenderness. EXTREMITIES: No cyanosis or clubbing BACK: No deformity, no pressure ulcer. GENITOURINARY: No dysuria or hematuria. Vital Sign (Last 12 Hours) 10/11/24 10/11/24 10/11/24 08:49 08:52 12:00 Temp 98.4 98.6 Pulse 93 90 Resp 18 18 B/P (MAP) 101/68 131/72 Pulse Ox 95 95 97 O2 Delivery Room Air Room Air* O2 Flow Rate 0.0 0 FiO2 21 Intake & Output (last 24hrs) 10/10/24 10/10/24 10/11/24 15:00 23:00 07:00 Intake Total 1390.0 ml Output Total 700 ml 200 ml Balance -700 ml 1190.0 ml LABS: Laboratory: Test 10/11/24 14:50 10/11/24 06:52 10/10/24 06:21 10/09/24 20:12 Range/Units Whole Blood Glucose 195 H 70-110 MG/DL Prothrombin Time 10.4 9.6-11.6 SEC Prothromb Time International Ratio 0.98 0.85-1.15 Activated Partial Thromboplast Time 33.6 26.3-35.5 SEC White Blood Count 8.0 4.8-10.8 K/uL Red Blood Count 3.25 L 4.50-6.20 MIL/uL Hemoglobin 10.3 L 14.0-18.0 g/dL Hematocrit 30.3 L 42-54 % Mean Corpuscular Volume 93.2 79-99 fL Mean Corpuscular Hemoglobin 31.7 27.0-33.0 pg Mean Corpuscular Hemoglobin Concent 34.0 32.0-36.0 g/dL Red Cell Distribution Width 14.6 11.0-15.5 % Platelet Count 62 L 130-400 K/uL Mean Platelet Volume 11.1 H 7.5-10.5 fL Immature Granulocyte % (Auto) 0.4 0-1 % Neutrophils (%) (Auto) 74.9 40.0-77.0 % Lymphocytes (%) (Auto) 13.9 L 21.0-51.0 % Monocytes (%) (Auto) 7.5 3.0-13.0 % Eosinophils (%) (Auto) 2.9 0.0-8.0 % Basophils (%) (Auto) 0.4 0.0-5.0 % Neutrophils # (Auto) 6.0 1.8-7.7 K/uL Lymphocytes # (Auto) 1.1 1.0-4.8 K/uL Monocytes # (Auto) 0.6 0.1-1.0 K/uL Eosinophils # (Auto) 0.23 0.00-0.70 K/uL Basophils # (Auto) 0.03 0.00-0.20 K/uL Absolute Immature Granulocyte (auto 0.03 0-1 K/uL Nucleated Red Blood Cells 0.0 0.0-0.19 % Sodium Level 141 136-145 mmol/L Potassium Level 3.6 3.5-5.1 mmol/L Chloride Level 107 101-111 mmol/L Carbon Dioxide Level 28 21-32 mmol/L Blood Urea Nitrogen 8 7-18 mg/dL Creatinine 0.7 0.5-1.3 mg/dL Glomerular Filtration Rate Calc 98 >90 mL/min Random Glucose 136 H 70-105 mg/dL Total Calcium 8.1 L 8.5-10.1 mg/dL Vancomycin Level Trough 13.1 10.0-20.0 UG/ML Bedside Glucose Comment Notified Nurse ASSESSMENT: Staphylococcus epidermidis bacteremia, s/p MYKE with negative findings for endocarditis. Sepsis. Thrombocytopenic. Chronic back pain. Diabetes mellitus. Hypertension. PLAN: Continue ceftriaxone. Continue vancomycin per pharmacy protocol. We will follow up on the repeat blood cultures. Continue antidiabetic. Continue pain management. Patient is pending insurance approval to [facility]. This case was reviewed and discussed with my supervising physician and the above assessment and plan was formulated and agreed upon. ATTESTATION BY PHYSICIAN I have seen and examined the patient. I reviewed the documentation, medical decision making, and treatment plan as noted by the mid-level provider above. I agree with the findings and plan of care. JIMY VARGAS MD, MIRTA L [facility] Oct 11, 2024 16:18
--- NOTE | 2024-10-11 16:30 | PN ---
[facility] PROGRESS NOTE Date of Service: Oct 11, 2024 Time of Service: 16:26 SUBJECTIVE: 10/06 No acute events overnight. Cultures positive for bacteremia 2/2 gram positive. Continue IV antibiotics. Repeat echo ordered to rule out endocarditis. ID recommending repeat MRI of spine as spinal lesion may be infectious. 10/07 acute events overnight. Cardiology recommending MYKE tomorrow, patient will be made NPO after midnight. MRI of the lumbar spine still pending, we will follow up. Patient given a lab holiday today, we will repeat tomorrow. We will order a repeat blood cultures tomorrow as well. 10/08 MYKE attempted today however was canceled, will follow up with cardiology. Patient said they will possibly attempt again tomorrow. Vitals and labs relatively unremarkable. Repeat blood cultures ordered, will follow up. Further recommendations per ID 10/09 MYKE rescheduled to today, will follow up post procedure. Continue with IV antibiotics, repeat blood cultures pending, will follow up. Labs relatively unremarkable 10/10 MYKE completed, no evidence of endocarditis noted. Pending solara placement, vitals and labs relatively unremarkable. Repeat blood cultures are no growth to date 10/11 Patient pending solara placement. Lab holiday today. Patient is hemodyn amically stable. REVIEW OF SYSTEMS 12 point ROS negative unless noted in HPI PHYSICAL EXAM GENERAL APPEARANCE: The patient is awake, alert, and oriented, in no acute cardiopulmonary distress. NEUROLOGICAL: Cranial nerves II-XII grossly intact. Motor is 5/5 in bilateral upper and lower extremities proximal to distal. No sensory deficits. HEENT: Face is symmetric. Pupils are equal and reactive. Extraocular movements are intact. NECK: Supple. No JVD. No thyromegaly. No submental, submandibular, pre- /postauricular, occipital or supraclavicular lymphadenopathy. CHEST: Normal chest expansion. No Telemetry. LUNGS: Absence of any rales, rhonchi or any wheezing. CARDIOVASCULAR: Regular. S1 and S2 normal. No appreciable rubs, murmurs or gallops. ABDOMEN: Soft, nontender, and nondistended. There is no rebound, voluntary guarding, or rigidity. : Deferred. No Emmanuel. EXTREMITIES: Non-edematous and not cyanotic. No clubbing. Good capillary refill. SKIN: No skin breakdown. Vital Signs (last 8hr) Date Time Temp Pulse Resp B/P (MAP) Pulse Ox O2 Delivery O2 Flow Rate FiO2 10/11/24 15:00 98.4 83 17 156/78 99 Room Air 10/11/24 12:00 98.6 90 18 131/72 97 10/11/24 08:52 95 Room Air* 0 21 10/11/24 08:49 98.4 93 18 101/68 95 Room Air 0.0 LABS: Laboratory: Test 10/11/24 14:50 10/11/24 06:52 10/10/24 06:21 10/09/24 20:12 Range/Units Whole Blood Glucose 195 H 70-110 MG/DL Prothrombin Time 10.4 9.6-11.6 SEC Prothromb Time International Ratio 0.98 0.85-1.15 Activated Partial Thromboplast Time 33.6 26.3-35.5 SEC White Blood Count 8.0 4.8-10.8 K/uL Red Blood Count 3.25 L 4.50-6.20 MIL/uL Hemoglobin 10.3 L 14.0-18.0 g/dL Hematocrit 30.3 L 42-54 % Mean Corpuscular Volume 93.2 79-99 fL Mean Corpuscular Hemoglobin 31.7 27.0-33.0 pg Mean Corpuscular Hemoglobin Concent 34.0 32.0-36.0 g/dL Red Cell Distribution Width 14.6 11.0-15.5 % Platelet Count 62 L 130-400 K/uL Mean Platelet Volume 11.1 H 7.5-10.5 fL Immature Granulocyte % (Auto) 0.4 0-1 % Neutrophils (%) (Auto) 74.9 40.0-77.0 % Lymphocytes (%) (Auto) 13.9 L 21.0-51.0 % Monocytes (%) (Auto) 7.5 3.0-13.0 % Eosinophils (%) (Auto) 2.9 0.0-8.0 % Basophils (%) (Auto) 0.4 0.0-5.0 % Neutrophils # (Auto) 6.0 1.8-7.7 K/uL Lymphocytes # (Auto) 1.1 1.0-4.8 K/uL Monocytes # (Auto) 0.6 0.1-1.0 K/uL Eosinophils # (Auto) 0.23 0.00-0.70 K/uL Basophils # (Auto) 0.03 0.00-0.20 K/uL Absolute Immature Granulocyte (auto 0.03 0-1 K/uL Nucleated Red Blood Cells 0.0 0.0-0.19 % Sodium Level 141 136-145 mmol/L Potassium Level 3.6 3.5-5.1 mmol/L Chloride Level 107 101-111 mmol/L Carbon Dioxide Level 28 21-32 mmol/L Blood Urea Nitrogen 8 7-18 mg/dL Creatinine 0.7 0.5-1.3 mg/dL Glomerular Filtration Rate Calc 98 >90 mL/min Random Glucose 136 H 70-105 mg/dL Total Calcium 8.1 L 8.5-10.1 mg/dL Vancomycin Level Trough 13.1 10.0-20.0 UG/ML Bedside Glucose Comment Notified Nurse Current Medications Medications (Trade) Dose Ordered Sig/Ann Marie Route PRN Reason Start Time Stop Time Status Last Admin Dose Admin Acetaminophen (TYLenol 325MG TAB) 650 mg Q4H PRN PO MILD PAIN (1-3) 10/05/24 06:00 11/04/24 05:59 Acetaminophen (TYLenol 325MG TAB) 650 mg Q6H PRN PO TEMPERATURE GREATER THAN 101.5 10/05/24 06:00 11/04/24 05:59 10/10/24 10:50 650 MG Ceftriaxone Sodium (ROCEphine 1G INJ) 1 gm Q24H IV 10/06/24 01:00 10/05/24 08:03 DC Ceftriaxone Sodium (Rocephin 2gm Inj) 2 gm Q24H IVPB 10/06/24 01:00 10/16/24 00:59 10/11/24 00:40 2 GM Dextrose (D50w) 50 ml AD PRN IV HYPOGLYCEMIA PROTOCOL 10/05/24 06:00 11/04/24 05:59 Doxycycline Hyclate 250 ml @ 250 mls/hr Q12H IV 10/05/24 06:00 10/06/24 08:34 DC 10/06/24 06:50 250 MLS/HR Famotidine (Pepcid 20mg Tab) 20 mg Q24H PO 10/05/24 09:00 11/04/24 08:59 10/11/24 08:17 20 MG Glucagon (Glucagon 1mg Kit) 1 mg AD PRN IM HYPOGLYCEMIA PROTOCOL 10/05/24 06:00 11/04/24 05:59 Insulin Human Regular (humuLIN R 100 UNIT/ML 3ML) INSULIN SLIDING SCAL... ACHS SQ 10/05/24 07:30 11/04/24 07:29 10/11/24 16:25 2 UNIT Magnesium Sulfate 50 ml @ 0 mls/hr PROTOCOL PRN IV OTHER [SEE ORDER COMMENTS] 10/05/24 06:00 11/04/24 05:59 10/08/24 07:01 25 MLS/HR Midodrine (PROAMatine 5 MG TABLET) 10 mg TID PO 10/05/24 06:30 11/04/24 06:29 10/11/24 08:17 10 MG Norepinephrine 250 ml @ 0 mls/hr PROTOCOL IV 10/05/24 03:00 10/05/24 02:57 DC Norepinephrine 250 ml @ 0 mls/hr PROTOCOL IV 10/05/24 03:00 10/05/24 21:58 DC 10/05/24 03:01 25.5 MLS/HR Ondansetron HCl (zoFRAN 4MG INJ) 4 mg Q6H PRN IV NAUSEA/VOMITING 10/05/24 06:00 11/04/24 05:59 Pharmacy Profile Note (Lace Assessment) 1 each AD MISC 10/05/24 18:00 10/05/24 18:13 DC Potassium Chloride 100 ml @ 100 mls/hr AD PRN IV POTASSIUM PROTOCOL 10/05/24 06:00 11/04/24 05:59 Potassium Chloride (K-Dur/Klor-Con 20meq) 20 meq AD PRN PO POTASSIUM PROTOCOL 10/05/24 06:00 11/04/24 05:59 Potassium Chloride (KCl 10% Elixir 20meq/15ml) 20 meq AD PRN PO POTASSIUM PROTOCOL 10/05/24 06:00 11/04/24 05:59 Sodium Chloride 1,000 ml @ 100 mls/hr Q10H IV 10/05/24 06:00 11/04/24 05:59 10/11/24 03:01 100 MLS/HR Vancomycin HCl (Vancomycin 750mg) 750 mg Q12H IVPB 10/06/24 08:00 10/16/24 07:59 10/11/24 08:17 750 MG Vancomycin HCl (Vancomycin Protocol) 1 each AD IV 10/05/24 17:00 10/19/24 16:59 DIAGNOSTICS / RADIOLOGY: [ ] ASSESSMENT: Severe sepsis secondary to gram positive bacteremia, POA Septic shock, resolved POA Normocytic normochromic anemia POA Acute thrombocytopenia POA Acute renal insufficiency, resolved POA DM2 last A1C 8.9, POA Coronary artery disease with CABG POA 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 b.i.d. for GI prophylaxis Continue insulin sliding scale AC & HS with hypoglycemia protocol ID consulted, appreciate recommendations Cardiology consulted, appreciate recommendations Disposition: Pending Solara placement TIMOTHY VENEGAS MD Oct 11, 2024 16:30
[2024-10-12] VITALS (9 sets, daily range): BP systolic 100–138; BP diastolic 52–70; PULSE 74–88; RESP 19–20; TEMP 97.6–98.7; O2SAT 98
--- NOTE | 2024-10-12 09:29 | NUR ---
AM DOSE OF MIDODRINE HELD TO PREVENT HYPERTENSION. CURRENT BP: 125/67
--- NOTE | 2024-10-12 15:03 | PN ---
[facility] PROGRESS NOTE Date of Service: Oct 12, 2024 Time of Service: 15:01 SUBJECTIVE: 10/06 No acute events overnight. Cultures positive for bacteremia 2/2 gram positive. Continue IV antibiotics. Repeat echo ordered to rule out endocarditis. ID recommending repeat MRI of spine as spinal lesion may be infectious. 10/07 acute events overnight. Cardiology recommending MYKE tomorrow, patient will be made NPO after midnight. MRI of the lumbar spine still pending, we will follow up. Patient given a lab holiday today, we will repeat tomorrow. We will order a repeat blood cultures tomorrow as well. 10/08 MYKE attempted today however was canceled, will follow up with cardiology. Patient said they will possibly attempt again tomorrow. Vitals and labs relatively unremarkable. Repeat blood cultures ordered, will follow up. Further recommendations per ID 10/09 MYKE rescheduled to today, will follow up post procedure. Continue with IV antibiotics, repeat blood cultures pending, will follow up. Labs relatively unremarkable 10/10 MYKE completed, no evidence of endocarditis noted. Pending [facility] placement, vitals and labs relatively unremarkable. Repeat blood cultures are no growth to date 10/11 Patient pending [facility]ara placement. Lab holiday today. Patient is hemodyn amically stable. 10/11 Patient pending solara placement. Lab holiday today. Patient is hemodynamically stable. REVIEW OF SYSTEMS 12 point ROS negative unless noted in HPI PHYSICAL EXAM GENERAL APPEARANCE: The patient is awake, alert, and oriented, in no acute cardiopulmonary distress. NEUROLOGICAL: Cranial nerves II-XII grossly intact. Motor is 5/5 in bilateral upper and lower extremities proximal to distal. No sensory deficits. HEENT: Face is symmetric. Pupils are equal and reactive. Extraocular movements are intact. NECK: Supple. No JVD. No thyromegaly. No submental, submandibular, pre- /postauricular, occipital or supraclavicular lymphadenopathy. CHEST: Normal chest expansion. No Telemetry. LUNGS: Absence of any rales, rhonchi or any wheezing. CARDIOVASCULAR: Regular. S1 and S2 normal. No appreciable rubs, murmurs or gallops. ABDOMEN: Soft, nontender, and nondistended. There is no rebound, voluntary guarding, or rigidity. : Deferred. No Emmaunel. EXTREMITIES: Non-edematous and not cyanotic. No clubbing. Good capillary refill. SKIN: No skin breakdown. Vital Signs (last 8hr) Date Time Temp Pulse Resp B/P (MAP) Pulse Ox O2 Delivery O2 Flow Rate FiO2 10/12/24 12:00 97.5 86 19 100/52 96 Room Air 21 10/12/24 09:35 98 Room Air* 0 21 10/12/24 08:00 98.1 88 20 125/67 98 Room Air 21 LABS: Laboratory: Test 10/12/24 12:40 10/12/24 06:47 10/11/24 06:52 Range/Units Whole Blood Glucose 270 #H 70-110 MG/DL Bedside Glucose Comment Notified Nurse Vancomycin Level Trough 13.5 10.0-20.0 UG/ML Prothrombin Time 10.4 9.6-11.6 SEC Prothromb Time International Ratio 0.98 0.85-1.15 Activated Partial Thromboplast Time 33.6 26.3-35.5 SEC Current Medications Medications (Trade) Dose Ordered Sig/Ann Marie Route PRN Reason Start Time Stop Time Status Last Admin Dose Admin Acetaminophen (TYLenol 325MG TAB) 650 mg Q4H PRN PO MILD PAIN (1-3) 10/05/24 06:00 11/04/24 05:59 Acetaminophen (TYLenol 325MG TAB) 650 mg Q6H PRN PO TEMPERATURE GREATER THAN 101.5 10/05/24 06:00 11/04/24 05:59 10/10/24 10:50 650 MG Ceftriaxone Sodium (ROCEphine 1G INJ) 1 gm Q24H IV 10/06/24 01:00 10/05/24 08:03 DC Ceftriaxone Sodium (Rocephin 2gm Inj) 2 gm Q24H IVPB 10/06/24 01:00 10/16/24 00:59 10/12/24 01:09 2 GM Dextrose (D50w) 50 ml AD PRN IV HYPOGLYCEMIA PROTOCOL 10/05/24 06:00 11/04/24 05:59 Doxycycline Hyclate 250 ml @ 250 mls/hr Q12H IV 10/05/24 06:00 10/06/24 08:34 DC 10/06/24 06:50 250 MLS/HR Famotidine (Pepcid 20mg Tab) 20 mg Q24H PO 10/05/24 09:00 11/04/24 08:59 10/12/24 09:27 20 MG Glucagon (Glucagon 1mg Kit) 1 mg AD PRN IM HYPOGLYCEMIA PROTOCOL 10/05/24 06:00 11/04/24 05:59 Insulin Human Regular (humuLIN R 100 UNIT/ML 3ML) INSULIN SLIDING SCAL... ACHS SQ 10/05/24 07:30 11/04/24 07:29 10/12/24 12:49 5 UNIT Magnesium Sulfate 50 ml @ 0 mls/hr PROTOCOL PRN IV OTHER [SEE ORDER COMMENTS] 10/05/24 06:00 11/04/24 05:59 10/08/24 07:01 25 MLS/HR Midodrine (PROAMatine 5 MG TABLET) 10 mg TID PO 10/05/24 06:30 11/04/24 06:29 10/12/24 14:58 10 MG Norepinephrine 250 ml @ 0 mls/hr PROTOCOL IV 10/05/24 03:00 10/05/24 02:57 DC Norepinephrine 250 ml @ 0 mls/hr PROTOCOL IV 10/05/24 03:00 10/05/24 21:58 DC 10/05/24 03:01 25.5 MLS/HR Ondansetron HCl (zoFRAN 4MG INJ) 4 mg Q6H PRN IV NAUSEA/VOMITING 10/05/24 06:00 11/04/24 05:59 Pharmacy Profile Note (Lace Assessment) 1 each AD MISC 10/05/24 18:00 10/05/24 18:13 DC Potassium Chloride 100 ml @ 100 mls/hr AD PRN IV POTASSIUM PROTOCOL 10/05/24 06:00 11/04/24 05:59 Potassium Chloride (K-Dur/Klor-Con 20meq) 20 meq AD PRN PO POTASSIUM PROTOCOL 10/05/24 06:00 11/04/24 05:59 Potassium Chloride (KCl 10% Elixir 20meq/15ml) 20 meq AD PRN PO POTASSIUM PROTOCOL 10/05/24 06:00 11/04/24 05:59 Sodium Chloride 1,000 ml @ 100 mls/hr Q10H IV 10/05/24 06:00 11/04/24 05:59 10/12/24 01:09 100 MLS/HR Vancomycin HCl (Vancomycin 750mg) 750 mg Q12H IVPB 10/06/24 08:00 6/30/25 07:59 10/12/24 09:28 750 MG Vancomycin HCl (Vancomycin Protocol) 1 each AD IV 10/05/24 17:00 10/19/24 16:59 DIAGNOSTICS / RADIOLOGY: [ ] ASSESSMENT: Severe sepsis secondary to gram positive bacteremia, POA Septic shock, resolved POA Normocytic normochromic anemia POA Acute thrombocytopenia POA Acute renal insufficiency, resolved POA DM2 last A1C 8.9, POA Coronary artery disease with CABG POA 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 b.i.d. for GI prophylaxis Continue insulin sliding scale AC & HS with hypoglycemia protocol ID consulted, appreciate recommendations Cardiology consulted, appreciate recommendations Disposition: Pending [facility] placement TIMOTHY VENEGAS MD Oct 12, 2024 15:03
[2024-10-12] MEDS: PoTASSium chloRIDE 20MEQ ER 20 MEQ ERTAB PO PRN (16:57)
[2024-10-12] MEDS ORDERED: LACTULOSE 20 GM/30 ML UDCUP PO PRN (20:00)
--- NOTE | 2024-10-12 23:11 | PN ---
INFECTIOUS DISEASE PROGRESS NOTE Date of Service: Oct 12, 2024 SUBJECTIVE: Patient was seen at bedside in room 326. Patient is awake, alert and oriented. Patient is participating well with physical therapy. Patient reported feeling constipated and has not had a bowel movement for 3 days today. We will give lactulose scheduled until BM. No fever this morning, temperature is 98.1. Continues on ceftriaxone and vancomycin. Patient is pending insurance approval to [facility]. No other issues reported by nursing. PHYSICAL EXAM EYES: Anicteric. Pupils equal and reactive. HENT: No oral thrush seen, moist Oral mucosa. NECK: Supple, no JVD or thyromegaly. LUNGS: Good air entry. No rales, no rhonchi. CARDIOVASCULAR: S1, S2 regular. No murmur heard. ABDOMEN: Soft, non tender, bowel sounds present, no organomegaly. CENTRAL NERVOUS SYSTEM: Awake, alert, oriented x 3. SKIN: No rashes, no swelling. LYMPHATICS: No peripheral lymphadenopathy MUSCULOSKELETAL: No joint swelling, erythema or tenderness. EXTREMITIES: No cyanosis or clubbing.. BACK: No deformity, no pressure ulcer. GENITOURINARY: No dysuria or hematuria. Vital Sign (Last 12 Hours) 10/12/24 10/12/24 10/12/24 12:00 16:00 19:15 Temp 97.5 98.6 98.1 Pulse 86 85 81 Resp 19 19 20 B/P (MAP) 100/52 123/65 138/70 Pulse Ox 96 98 98 O2 Delivery Room Air Room Air Room Air FiO2 21 21 Intake & Output (last 24hrs) 10/11/24 10/11/24 10/12/24 14:59 22:59 06:59 Intake Total 500.0 ml Balance 500.0 ml LABS: Laboratory: Test 10/12/24 20:12 10/12/24 15:23 10/12/24 06:47 10/11/24 06:52 Range/Units Whole Blood Glucose 211 H 70-110 MG/DL Bedside Glucose Comment Notified Nurse Vancomycin Level Trough 13.5 10.0-20.0 UG/ML Prothrombin Time 10.4 9.6-11.6 SEC Prothromb Time International Ratio 0.98 0.85-1.15 Activated Partial Thromboplast Time 33.6 26.3-35.5 SEC ASSESSMENT: Staphylococcus epidermidis bacteremia, s/p MYKE with negative findings for endocarditis. Sepsis. Thrombocytopenia. Chronic back pain. Diabetes mellitus. Hypertension. Constipation. PLAN: Continue ceftriaxone. Continue vancomycin per pharmacy protocol. Continue antidiabetic. Continue pain management. Midline has been placed. Pending insurance approval to [facility]. Give lactulose 20 g p.o. every 8 hours until BM. This case was reviewed and discussed with my supervising physician and the above assessment and plan was formulated and agreed upon. ATTESTATION BY PHYSICIAN I have seen and examined the patient. I reviewed the documentation, medical decision making, and treatment plan as noted by the mid-level provider above. I agree with the findings and plan of care. JIMY VARGAS MD, [facility] Oct 12, 2024 23:11
[2024-10-13 04:10] VITALS: BP 135/69; PULSE 101; RESP 21; TEMP 98.5
[2024-10-13 06:14] LABS: HEMATOCRIT 30.3 % (42-54); MEAN CORPUSCULAR HGB CONC 32.7 g/dL (32.0-36.0); RED BLOOD CELL COUNT(AUTO) 3.19 MIL/uL (4.50-6.20); RED CELL DISTRIBUTION WIDTH 14.5 % (11.0-15.5); WHITE BLOOD COUNT (AUTO) 6.2 K/uL (4.8-10.8)
[2024-10-13 06:21] LABS: CREATININE 0.7 mg/dL (0.5-1.3); POTASSIUM 3.6 mmol/L (3.5-5.1)
[2024-10-13 08:00] VITALS: BP 111/64; PULSE 99; RESP 18; TEMP 97.8; O2SAT 97
[2024-10-13 11:54] VITALS: BP 153/77; PULSE 83; RESP 18; TEMP 97.5
[2024-10-13] MEDS: miDODRine HCL 5 MG TABLET PO SCH (14:00)
[2024-10-13] MEDS ORDERED: BRIM5DRO21 OP (14:17)
--- NOTE | 2024-10-13 14:19 | NUR ---
[facility] Auth Escalation Emailed: Pinky Gamino, COLBY <[email or web address]>; Eleanor Donaldson NP <[email or web address]>; Sreekanth Wolf <[email or web address]>; Karoline Colón RN <[email or web address]>; [email or web address]; [email or web address]; Ana Eli <[email or web address]>; Carlota [email or web address] <[email or web address]>; [email or web address]; Isabel Costa RN <[email or web address]>; [email or web address]; Jaswant Torres ([facility]) <[email or web address]>; Velma Rene <[email or web address]> and provided patient's name, , and policy #. Email stated, "[facility] Team, Patient below is pending auth to [facility] and is ready to discharge. @Jaswant Torres ([facility]) is the CM and @Velma Rene is the clinical liaison for [facility] if additional information is needed.
--- NOTE | 2024-10-13 14:56 | PN ---
[facility] PROGRESS NOTE Date of Service: Oct 13, 2024 Time of Service: 14:54 SUBJECTIVE: 10/06 No acute events overnight. Cultures positive for bacteremia 2/2 gram positive. Continue IV antibiotics. Repeat echo ordered to rule out endocarditis. ID recommending repeat MRI of spine as spinal lesion may be infectious. 10/07 acute events overnight. Cardiology recommending MYKE tomorrow, patient will be made NPO after midnight. MRI of the lumbar spine still pending, we will follow up. Patient given a lab holiday today, we will repeat tomorrow. We will order a repeat blood cultures tomorrow as well. 10/08 MYKE attempted today however was canceled, will follow up with cardiology. Patient said they will possibly attempt again tomorrow. Vitals and labs relatively unremarkable. Repeat blood cultures ordered, will follow up. Further recommendations per ID 10/09 MYKE rescheduled to today, will follow up post procedure. Continue with IV antibiotics, repeat blood cultures pending, will follow up. Labs relatively unremarkable 10/10 MYKE completed, no evidence of endocarditis noted. Pending solara placement, vitals and labs relatively unremarkable. Repeat blood cultures are no growth to date 10/11 Patient pending solara placement. Lab holiday today. Patient is hemodyn amically stable. 10/12 Patient pending solara placement. Lab holiday today. Patient is hemodynamically stable. 10/13 Patient pending solara placement. Hgb decreased from 10.3 down to 9.9, platelets improved from 62 up to 71, remainder of his labs are relatively unremarkable. Patient is hemodynamically stable. REVIEW OF SYSTEMS 12 point ROS negative unless noted in HPI PHYSICAL EXAM GENERAL APPEARANCE: The patient is awake, alert, and oriented, in no acute cardiopulmonary distress. NEUROLOGICAL: Cranial nerves II-XII grossly intact. Motor is 5/5 in bilateral upper and lower extremities proximal to distal. No sensory deficits. HEENT: Face is symmetric. Pupils are equal and reactive. Extraocular movements are intact. NECK: Supple. No JVD. No thyromegaly. No submental, submandibular, pre-/postauricular, occipital or supraclavicular lymphadenopathy. CHEST: Normal chest expansion. No Telemetry. LUNGS: Absence of any rales, rhonchi or any wheezing. CARDIOVASCULAR: Regular. S1 and S2 normal. No appreciable rubs, murmurs or gallops. ABDOMEN: Soft, nontender, and nondistended. There is no rebound, voluntary guarding, or rigidity. : Deferred. No Emmanuel. EXTREMITIES: Non-edematous and not cyanotic. No clubbing. Good capillary refill. SKIN: No skin breakdown. Vital Signs (last 8hr) Date Time Temp Pulse Resp B/P (MAP) Pulse Ox O2 Delivery O2 Flow Rate FiO2 10/13/24 11:54 97.5 83 18 153/77 96 Room Air 10/13/24 08:00 97 Room Air* 0 21 10/13/24 08:00 97.9 99 18 111/64 97 Room Air LABS: Laboratory: Test 10/13/24 11:07 10/13/24 05:54 10/12/24 15:23 10/12/24 06:47 Range/Units Whole Blood Glucose 189 #H 70-110 MG/DL White Blood Count 6.2 4.8-10.8 K/uL Red Blood Count 3.19 L 4.50-6.20 MIL/uL Hemoglobin 9.9 L 14.0-18.0 g/dL Hematocrit 30.3 L 42-54 % Mean Corpuscular Volume 95.0 79-99 fL Mean Corpuscular Hemoglobin 31.0 27.0-33.0 pg Mean Corpuscular Hemoglobin Concent 32.7 32.0-36.0 g/dL Red Cell Distribution Width 14.5 11.0-15.5 % Platelet Count 71 L 130-400 K/uL Mean Platelet Volume 10.9 H 7.5-10.5 fL Nucleated Red Blood Cells 0.0 0.0-0.19 % Sodium Level 139 136-145 mmol/L Potassium Level 3.6 3.5-5.1 mmol/L Chloride Level 104 101-111 mmol/L Carbon Dioxide Level 28 21-32 mmol/L Blood Urea Nitrogen 7 7-18 mg/dL Creatinine 0.7 0.5-1.3 mg/dL Glomerular Filtration Rate Calc 98 >90 mL/min Random Glucose 116 H 70-105 mg/dL Total Calcium 8.2 L 8.5-10.1 mg/dL Bedside Glucose Comment Notified Nurse Vancomycin Level Trough 13.5 10.0-20.0 UG/ML Current Medications Medications (Trade) Dose Ordered Sig/Ann Marie Route PRN Reason Start Time Stop Time Status Last Admin Dose Admin Acetaminophen (TYLenol 325MG TAB) 650 mg Q4H PRN PO MILD PAIN (1-3) 10/05/24 06:00 11/04/24 05:59 Acetaminophen (TYLenol 325MG TAB) 650 mg Q6H PRN PO TEMPERATURE GREATER THAN 101.5 10/05/24 06:00 11/04/24 05:59 10/10/24 10:50 650 MG Ceftriaxone Sodium (ROCEphine 1G INJ) 1 gm Q24H IV 10/06/24 01:00 10/05/24 08:03 DC Ceftriaxone Sodium (Rocephin 2gm Inj) 2 gm Q24H IVPB 10/06/24 01:00 10/16/24 00:59 10/13/24 00:47 2 GM Dextrose (D50w) 50 ml AD PRN IV HYPOGLYCEMIA PROTOCOL 10/05/24 06:00 11/04/24 05:59 Doxycycline Hyclate 250 ml @ 250 mls/hr Q12H IV 10/05/24 06:00 10/06/24 08:34 DC 10/06/24 06:50 250 MLS/HR Famotidine (Pepcid 20mg Tab) 20 mg Q24H PO 10/05/24 09:00 11/04/24 08:59 10/13/24 08:57 20 MG Glucagon (Glucagon 1mg Kit) 1 mg AD PRN IM HYPOGLYCEMIA PROTOCOL 10/05/24 06:00 11/04/24 05:59 Insulin Human Regular (humuLIN R 100 UNIT/ML 3ML) INSULIN SLIDING SCAL... ACHS SQ 10/05/24 07:30 11/04/24 07:29 10/13/24 12:21 2 UNIT Lactulose (Constulose 20gm/ 30ml Udcup) 20 gm TID PRN PO CONSTIPATION 10/12/24 20:00 11/11/24 19:59 Magnesium Sulfate 50 ml @ 0 mls/hr PROTOCOL PRN IV OTHER [SEE ORDER COMMENTS] 10/05/24 06:00 11/04/24 05:59 10/08/24 07:01 25 MLS/HR Midodrine (PROAMatine 5 MG TABLET) 5 mg TID PO 10/13/24 14:00 11/12/24 13:59 Midodrine (PROAMatine 5 MG TABLET) 10 mg TID PO 10/05/24 06:30 10/13/24 09:39 DC 10/13/24 09:01 10 MG Norepinephrine 250 ml @ 0 mls/hr PROTOCOL IV 10/05/24 03:00 10/05/24 02:57 DC Norepinephrine 250 ml @ 0 mls/hr PROTOCOL IV 10/05/24 03:00 10/05/24 21:58 DC 10/05/24 03:01 25.5 MLS/HR Ondansetron HCl (zoFRAN 4MG INJ) 4 mg Q6H PRN IV NAUSEA/VOMITING 10/05/24 06:00 11/04/24 05:59 Pharmacy Profile Note (Lace Assessment) 1 each AD MISC 10/05/24 18:00 10/05/24 18:13 DC Potassium Chloride 100 ml @ 100 mls/hr AD PRN IV POTASSIUM PROTOCOL 10/05/24 06:00 11/04/24 05:59 Potassium Chloride (K-Dur/Klor-Con 20meq) 20 meq AD PRN PO POTASSIUM PROTOCOL 10/05/24 06:00 11/04/24 05:59 10/13/24 12:16 20 MEQ Potassium Chloride (KCl 10% Elixir 20meq/15ml) 20 meq AD PRN PO POTASSIUM PROTOCOL 10/05/24 06:00 11/04/24 05:59 Sodium Chloride 1,000 ml @ 100 mls/hr Q10H IV 10/05/24 06:00 11/04/24 05:59 10/13/24 06:11 100 MLS/HR Vancomycin HCl (Vancomycin 750mg) 750 mg Q12H IVPB 10/06/24 08:00 10/16/24 07:59 10/13/24 08:50 750 MG Vancomycin HCl (Vancomycin Protocol) 1 each AD IV 10/05/24 17:00 10/19/24 16:59 DIAGNOSTICS / RADIOLOGY: [ ] ASSESSMENT: Severe sepsis secondary to gram positive bacteremia, S. 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 b.i.d. for GI prophylaxis Continue insulin sliding scale AC & HS with hypoglycemia protocol ID consulted, appreciate recommendations Cardiology consulted, appreciate recommendations Disposition: Pending [facility] placement TIMOTHY VENEGAS MD Oct 13, 2024 14:56
[2024-10-13 16:00] VITALS: BP 149/74; PULSE 89; RESP 18; TEMP 97.8
--- NOTE | 2024-10-13 18:00 | NUR ---
PATIENT ACCEPTED TO [facility] REC IN CHART TO BE COMPLETED FOR TRANSFER TOMORROW PER [facility].
[2024-10-13] MEDS: atorVAStatin 40 MG TABLET PO SCH (20:21)
[2024-10-13] MEDS: GABAPENTIN 300 MG CAPSULE PO SCH (20:21)
[2024-10-13] MEDS: doNEPEZil HCL 5 MG TAB PO SCH (20:21)
[2024-10-13 20:25] VITALS: BP 128/68; PULSE 88; RESP 19; TEMP 98.1
--- NOTE | 2024-10-13 22:53 | PN ---
INFECTIOUS DISEASE FOLLOWUP NOTE DATE OF SERVICE: 10/13/2024 SUBJECTIVE: The patient is seen and examined at bedside today. The patient has no fever, no chills. No nausea. No vomiting. No abdominal pain. No sore throat or rhinorrhea. No depression. No suicidal ideation. No dysuria or hematuria. No rashes or itchiness. PHYSICAL EXAMINATION: VITAL SIGNS: Temperature today 97.5. EYES: No icterus. Pupils are equal and reactive. HENT: No oral thrush seen. Moist oral mucosa. NECK: Supple. No JVD or thyromegaly. LUNGS: Good air entry. No rales. No rhonchi. CARDIOVASCULAR: S1 and S2 regular. No murmur heard. ABDOMEN: Full, soft, nontender. Bowel sounds are present. CENTRAL NERVOUS SYSTEM: Awake, alert and oriented x 3. No focal deficits. SKIN: No rashes. No itchiness. LYMPHATIC: No peripheral lymphadenopathy. BACK: No deformity. No pressure ulcer. HEMATOLOGIC: No bleeding or petechial lesion seen. LABORATORY DATA: Repeat blood culture, no growth for 4 days. ASSESSMENT: A 74-year-old male with multiple problems include: * Gram-positive bacteremia. * Diabetes mellitus. * Chronic back pain. * Hypertension * Obesity. * Thrombocytopenia * Debility. PLAN: * Continue antibiotic. * Continue pain management. * Continue antidiabetic. * Continue antihypertensive. * Continue nutritional support. * Monitor electrolytes. * Continue GI prophylaxis. * The patient will be followed up closely. TID: [id number] RECEIPT: [id number]
[2024-10-13 23:08] VITALS: O2SAT 97
[2024-10-14 00:45] VITALS: BP 133/68; PULSE 88; RESP 19; TEMP 98.4
[2024-10-14 04:29] VITALS: BP 131/68; PULSE 51; RESP 17; TEMP 98.1
[2024-10-14 07:53] VITALS: BP 139/68; PULSE 84; RESP 18; TEMP 97.8
[2024-10-14] MEDS: ASPIRIN 81 MG EC TAB PO SCH (09:08)
[2024-10-14 09:22] VITALS: O2SAT 95
--- NOTE | 2024-10-14 11:00 | NUR ---
DC ORDER FOR TRANSFER TO [facility]. PENDING PHYSICIAN TO SIGN MOT AND MED REQ. DR VENEGAS NOTIFIED. Addendum: 10/14/24 at 1230 by MATT CROWE RN RN Amended: Links added.
[2024-10-14 11:47] VITALS: BP 147/65; PULSE 80; RESP 18; TEMP 98
--- NOTE | 2024-10-14 14:34 | NUR ---
CALLED [facility] AND REPORT GIVEN TO ANDRAE SMITH. NURSE AWARE OF CONTINUED MEDICATIONS AND PATIENT CURRENT STATUS. ALL QUESTIONS AND CONCERNS ANSWERED. PATIENT PENDING EMS TRANSPORTATION.
--- NOTE | 2024-10-14 14:37 | NUR ---
EMS CONTACTED TO TRANSPORT PATIENT TO [facility] [address]. NO ETA GIVEN. FACESHEET AND ALL REQUESTED INFORMATION FAXED.
--- NOTE | 2024-10-14 14:57 | NUR ---
PATIENT SIGNED DISCHARGE. MIDLINE FLUSHED AND SALINE LOCKED. ALL BELONGINGS GATHERED BY SPOUSE. PATIENT AND SPOUSE AWARE AND AGREE TO TRANSFER TO [facility]. WAITING IN ROOM FOR EMS TRANSPORTATION.
--- NOTE | 2024-10-14 16:30 | NUR ---
EMS TRANSPORT ARRIVED TO TAKE PATIENT TO [facility], ALL [place] GIVEN TO EMS. PATIENT TOOK ALL BELONGINGS AND LEFT ALERT AND ORIENTED X 3. ALL QUESTIONS AND CONCERNS ANSWERED. HOME MEDS GIVEN BACK TO PATIENT.
--- NOTE | 2024-10-14 16:31 | DS ---
Discharge Summary Hospital Course Summary: 74-year-old male German-speaking with past medical history of diabetes type 2, hyperlipidemia,dementia, coronary artery disease with CABG, hypertension and recent TIA with left sided weakness who was brought by EMS to the [facility] for complaints of fever,inability to stand and decreased mental acuity.Upon ER sourav barry V/Kourtney temperature 102.9, heart rate 125, respiration 22 and blood pressure 126/74 saturation 96% on room air. 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 Seen and examined patient in the ER awake,alert and coherent and following commands.Patient able to move all extremities except for his left leg with very limited movement which is reason for his previous hospital confinement.Patient denies headache,visual disturbance,chest pain,palpitation,cough,shortness of breath,rash,nausea,vomiting,abdominal pain and diarrhea.Patient also reports having mild neck pain . Patient blood pressure dropped 72/40 in the ER and patient was started on Levophed drip. Latest vital signs temperature 99.7, heart rate 88, blood pressure 122/55 saturation 98% on room air. Labs: WBC 9.7 to 13.2, neutrophils from 90-86 hemoglobin 13 to 11, hematocrit 39 to 34, platelet count 96 to 88. Sodium 136, chloride 97, BUN 24, creatinine 1.3, GFR 58 glucose 176 lactic acid 2.5 to 1.3 procalcitonin 1.69. Influenza type a and B negative, SARs COVID negative rapid a strep negative. Chest x-ray result is still pending at this time. CT head without contrast and CT abdomen and pelvis are still pending to be done at this time. While in the ER patient received fluid resuscitation of NS 30 mL/kilogram over 3 hours, Rocephin 1 g IV, Tylenol 650 mg p.o., patient was started on Levophed drip. Patient admitted to ICU for further medical management. He was started on broad spectrum antibiotics. Once patient was weaned off pressors, MYKE was done which did not show evidence of endocarditis. He was downgraded from ICU and was assessed by PT who recommended transition to SNF/[facility] for continued antibiotics and packing and shipping clerk(s): Pulmonology/critical care Infectious Disease Procedure(s): MYKE Conclusion The left atrial size is normal. No thrombus is visualized in the left atrium or appendage. Bioprosthetic aortic valve is present. There is no aortic valvular vegetation. Trace aortic regurgitation. Mitral regurgitation is moderate. No pericardial effusion. US ABD LIMITED/ABD WALL REASON: EVAL IVC DUE TO DEHYDRATION. COMPARISON: None TECHNIQUE: Images of IVC was obtained per referring physician request. FINDINGS: Inferior vena cava is seen. IMPRESSION: Findings as described above. MRI LUMBAR SPINE WITHOUT AND WITH CONTRAST INDICATION: Bacteremia TECHNIQUE: Long and short axis fat and water weighted sequences were obtained through the lumbar spine before and after the administration of 10 mL of Clariscan contrast material without adverse effect. COMPARISON: 09/25/2024 FINDINGS: Normal lordosis of the lumbar spine is maintained. The lumbar vertebral bodies are normal in height, without evidence for acute compression fracture or osseous marrow replacing process. The conus medullaris is normal in signal and terminates at the appropriate level. Extensive susceptibility artifact from L3-L5 fusion hardware limits the study. Mild to moderate anterior spondylosis deformans at the L5-S1 level. Severe disc height loss at the same level. Broad-based posterior disc-osteophyte complex formation, including right and left foraminal extension contributes to mild bilateral neuroforaminal narrowing at the L5-S1 level, including nominal mass effect upon both descending nerve roots. Extremely shallow right and left foraminal disc displacement at the L1-L2 level and on the left at the L2-L3 level, the latter which contributes to mild left inferior neural foraminal narrowing. Extremely shallow posterior disc displacement, including right and left foraminal extension at the L3-L4 level with secondary mild bilateral inferior neuroforaminal narrowing. Slightly more pronounced changes noted at the L4-L5 level. Multilevel mild to moderate anterior endplate osteophytic spurring. No evidence for discitis or osteomyelitis. Following the administration of contrast, no abnormal areas of enhancement identified. ANCILLARY FINDINGS: None. IMPRESSION: No evidence for discitis, abscess, or osteomyelitis. Broad-based posterior disc-osteophyte complex formation, including right and left foraminal extension contributes to mild bilateral neuroforaminal narrowing at the L5-S1 level, including nominal mass effect upon both descending nerve roots. Level by level analysis, additional minor degenerative changes, and pertinent negatives as reported. Echocardiogram: Conclusion LVEF is 40-45%. Septal bounce is present. Prosthetic aortic valve is present, normal in appearance and well seated. No vegetations of the mitral or tricuspid valves. Moderate mitral annular calcification. Pulmonic valve not well visualized. CT HEAD/BRAIN W/O CONTRAST HISTORY: Altered mental status COMPARISON: 10/05/2024 TECHNIQUE: Multiple sequential axial images of the head were obtained from the base of the skull through vertex. Patient was not given contrast through intravenous route. FINDINGS: The ventricles and extraventricular CSF spaces are dilated consistent with cerebral atrophy. Nonspecific white matter changes seen. There is no midline shift, mass effect or herniation. No acute intracranial bleed is seen. Visualized portion of the paranasal sinuses are grossly within normal limits. IMPRESSION: 1. No acute intracranial bleed is seen. 2. Atrophy with white matter changes. CT ABDOMEN/PELVIS W/WO CONTRAS HISTORY: Altered mental status COMPARISON: None TECHNIQUE: Multiple sequential axial images of the abdomen and pelvis were obtained from the dome of the diaphragm through symphysis pubis. Patient was given 100 cc of Isovue through intravenous route. Oral contrast was not given. FINDINGS: No pleural effusion is seen bilaterally. There is no evidence of parenchymal disease or pulmonary nodule of the visualized lower lungs. Degenerative changes of the thoracolumbar spine are present. The heart is not enlarged. Postop changes are seen of the lower lumbar spine. Liver measured 15 cm. Gallstone is seen in the distended gallbladder. The liver, spleen, adrenal glands and pancreas are unremarkable. There is no evidence of hydronephrosis bilaterally. No evidence of renal stone is seen. Fecal material is seen in the colon. There are normal size retroperitoneal and mesenteric lymph nodes. No ascites is seen. Atherosclerotic changes are present. Pelvic sidewalls are symmetric bilaterally. Bladder is well distended without wall thickening. IMPRESSION: 1. Gallstone in the gallbladder. Assessment/Plan: Severe sepsis secondary to gram positive bacteremia, S. Epi POA Septic shock, resolved POA Normocytic normochromic anemia POA Acute thrombocytopenia POA Acute renal insufficiency, resolved POA DM2 last A1C 8.9, POA Coronary artery disease with CABG POA Myelomalacia of the cord per MRI on 09/25/2024 POA Multilevel disc protrusion with nerve root impingement and spinal stenosis per MRI on 09/25/2024 POA Home Medications: Reported Medications Brimonidine Tartrate/Timolol (Brimonidine-Timolol 0.2%-0.5%) 0.2 %-0.5 % Drops, 1 DROP OP BID for 30 Days, #5 ML 0 Refills 10/13/24 Aspirin (Aspirin EC) 81 Mg Tablet.dr, 81 MG PO DAILY, TAB 09/22/24 Atorvastatin Calcium (LIPITOR) 40 Mg Tablet, 40 MG PO HS for CHOLESTEROL, TAB 09/22/24 Gabapentin (Neurontin) 300 Mg Capsule, 300 MG PO BID for NEUROPATHY, CAP 09/22/24 Donepezil HCl (Donepezil HCl) 5 Mg Tablet, 5 MG PO HS for DEMENTIA, TAB 09/22/24 Discontinued Reported Medications Cyclobenzaprine HCl (Cyclobenzaprine HCl) 5 Mg Tablet, 5 MG PO HS, TAB 10/05/24 Mecobalamin (B12 Active) 1,000 Mcg Tab.chew, 1 TAB PO DAILY for 30 Days, #30 TAB 0 Refills 09/22/24 Dapagliflozin Propanediol (Farxiga) 10 Mg Tablet, 10 MG PO DAILY, TAB 09/22/24 Lisinopril (Lisinopril) 5 Mg Tablet, 5 MG PO DAILY for HIGH BLOOD PRESSURE, TAB 09/22/24 Pioglitazone HCl (Pioglitazone HCl) 30 Mg Tablet, 30 MG PO DAILY, TAB 09/22/24 Metformin HCl (Metformin HCl) 1,000 Mg Tablet, 1000 MG PO BID for DIABETES, TAB 09/22/24 Time spent arranging discharge: 31-60 minutes TIMOTHY VENEGAS MD Oct 14, 2024 16:31
--- NOTE | 2024-10-14 17:40 | PN ---
INFECTIOUS DISEASE PROGRESS NOTE Date of Service: Oct 14, 2024 SUBJECTIVE: Patient was seen at bedside in room 326. Patient is awake, alert and oriented. visiting at bedside. Patient has been approved to [facility] and being discharged today. Continues on ceftriaxone and vancomycin. No fever, temperature is 98.1. PHYSICAL EXAM EYES: Anicteric. Pupils equal and reactive. HENT: No oral thrush seen, moist Oral mucosa. NECK: Supple, no JVD or thyromegaly. LUNGS: Good air entry. No rales, no rhonchi. CARDIOVASCULAR: S1, S2 regular. No murmur heard. ABDOMEN: Soft, non tender, bowel sounds present, no organomegaly. CENTRAL NERVOUS SYSTEM: Awake, alert, oriented x 3. SKIN: No rashes, no swelling. LYMPHATICS: No peripheral lymphadenopathy MUSCULOSKELETAL: No joint swelling, erythema or tenderness. EXTREMITIES: No cyanosis or clubbing.. BACK: No deformity, no pressure ulcer. GENITOURINARY: No dysuria or hematuria. Vital Sign (Last 12 Hours) 10/14/24 10/14/24 10/14/24 07:53 09:22 11:47 Temp 97.9 98.1 Pulse 84 80 Resp 18 18 B/P (MAP) 139/68 147/65 Pulse Ox 95 95 95 O2 Delivery Room Air Room Air* Room Air O2 Flow Rate 0 FiO2 21 Intake & Output (last 24hrs) 10/13/24 10/13/24 10/14/24 15:00 23:00 07:00 Intake Total 250.0 ml 500.0 ml Balance 250.0 ml 500.0 ml LABS: Laboratory: Test 10/14/24 11:00 10/13/24 05:54 Range/Units Whole Blood Glucose 157 H 70-110 MG/DL White Blood Count 6.2 4.8-10.8 K/uL Red Blood Count 3.19 L 4.50-6.20 MIL/uL Hemoglobin 9.9 L 14.0-18.0 g/dL Hematocrit 30.3 L 42-54 % Mean Corpuscular Volume 95.0 79-99 fL Mean Corpuscular Hemoglobin 31.0 27.0-33.0 pg Mean Corpuscular Hemoglobin Concent 32.7 32.0-36.0 g/dL Red Cell Distribution Width 14.5 11.0-15.5 % Platelet Count 71 L 130-400 K/uL Mean Platelet Volume 10.9 H 7.5-10.5 fL Nucleated Red Blood Cells 0.0 0.0-0.19 % Sodium Level 139 136-145 mmol/L Potassium Level 3.6 3.5-5.1 mmol/L Chloride Level 104 101-111 mmol/L Carbon Dioxide Level 28 21-32 mmol/L Blood Urea Nitrogen 7 7-18 mg/dL Creatinine 0.7 0.5-1.3 mg/dL Glomerular Filtration Rate Calc 98 >90 mL/min Random Glucose 116 H 70-105 mg/dL Total Calcium 8.2 L 8.5-10.1 mg/dL ASSESSMENT: Staphylococcus epidermidis bacteremia, s/p MYKE with negative findings for endo carditis. Sepsis. Thrombocytopenia. Chronic back pain. Diabetes mellitus. Hypertension. Constipation. PLAN: Continue ceftriaxone. Continue vancomycin per pharmacy protocol. Continue antidiabetic. Continue pain management. Midline has been placed. Patient has been approved to [facility] and being discharged today. This case was reviewed and discussed with my supervising physician and the above assessment and plan was formulated and agreed upon. ATTESTATION BY PHYSICIAN I have seen and examined the patient. I reviewed the documentation, medical decision making, and treatment plan as noted by the mid-level provider above. I agree with the findings and plan of care. JIMY VARGAS MD, [facility] Oct 14, 2024 17:40
== END 2024-10-14 16:29 | DRG 871 ==
LOC: EDH 00:27 → EDHIP 05:48 → 3DH 14:20
PROVIDERS: ADMIT Internal Medicine; ATTEND Internal Medicine
PROC: B24BZZ4 Ultrasonography of Heart with Aorta, Transesophageal (ICD-10-PCS; principal; 2024-10-09)
PROC: 05HY33Z Insertion of Infusion Device into Upper Vein, Percutaneous Approach (ICD-10-PCS; 2024-10-11)
DX: A41.89 Other specified sepsis (principal); R65.21 Severe sepsis with septic shock; G95.89 Other specified diseases of spinal cord; D64.9 Anemia, unspecified; D69.59 Other secondary thrombocytopenia; E11.65 Type 2 diabetes mellitus with hyperglycemia; E88.09 Other disorders of plasma-protein metabolism, not elsewhere classified; I25.10 Atherosclerotic heart disease of native coronary artery without angina pectoris; N28.9 Disorder of kidney and ureter, unspecified; B96.89 Other specified bacterial agents as the cause of diseases classified elsewhere; E11.40 Type 2 diabetes mellitus with diabetic neuropathy, unspecified; E66.9 Obesity, unspecified; E78.00 Pure hypercholesterolemia, unspecified; Z20.822 Contact with and (suspected) exposure to COVID-19; F03.90 Unspecified dementia, unspecified severity, without behavioral disturbance, psychotic disturbance, mood disturbance, and anxiety; G89.29 Other chronic pain; K59.00 Constipation, unspecified; I10 Essential (primary) hypertension; K80.20 Calculus of gallbladder without cholecystitis without obstruction; Z83.3 Family history of diabetes mellitus; Z95.2 Presence of prosthetic heart valve; Z86.73 Personal history of transient ischemic attack (TIA), and cerebral infarction without residual deficits; Z95.1 Presence of aortocoronary bypass graft; Z79.899 Other long term (current) drug therapy
CPT/HCPCS: 36415; 36556; 70450; 71045; 72158; 74178; 76705; 80048; 80053; 80202; 81001; 82550; 82948; 83605; 83615; 83735; 84100; 84145; 84484; 85025; 85027; 85610; 85651; 85730; 86000; 86140; 86757; 87040; 87086; 87186; 87426; 87804; 87880; 93308; 93312; 93325; 93356; 94640; 96365; 99291; C1894; G0378; J0696; J1815; J2003; J2250; J2704; J3010; J3475; J3490; J7030; Q9967; C1751; J3370

== ENCOUNTER 2024-11-17 20:00 | Inpatient (IN) | payer OTHER ==
[~2024-11-17] VITALS: Ht 167.6 cm; Wt 60.7 kg
[~2024-11-17 20:00] MED LIST changes: +BRIM5DRO21 OP; -DAPA10TA PO; -LISI5TAB21 PO; -MECO10005 PO; -METF-446 PO; -PIOG30TA70 PO; -PRED20TA3 PO
[2024-11-17 20:23] LABS: IMMATURE GRANULOCYTE ABSOLUTE 0.07 K/uL (0-1); NUCLEATED RED BLOOD CELLS 0.0 % (0.0-0.19); PLATELET COUNT (AUTO) 67 K/uL (130-400); RED BLOOD CELL COUNT(AUTO) 3.04 MIL/uL (4.50-6.20); RED CELL DISTRIBUTION WIDTH 14.4 % (11.0-15.5); WHITE BLOOD COUNT (AUTO) 14.7 K/uL (4.8-10.8)
[2024-11-17] MEDS: ZOSYN 3.375GM +NS 50ML IV ONE (20:25)
[2024-11-17] MEDS: 0.9%NACL 1000ML 1,000 ML IV ONE ×2 (20:25→21:29)
[2024-11-17 20:31] LABS: CREATININE 1.3 mg/dL (0.5-1.3); GLOMERULAR FILTR. RATE CALC 58.0 mL/min (>90); GLUCOSE,RANDOM 227.0 mg/dL (70-105); SODIUM SERUM 134.0 mmol/L (136-145); UREA NITROGEN, BLOOD 19.0 mg/dL (7-18)
[2024-11-17 20:36] LABS: CREATINE KINASE, TOTAL 91.0 U/L (21-232)
[2024-11-17 20:37] LABS: PLATELET MORPHOLOGY COMMENT DECREASED
[2024-11-17 20:39] LABS: SARS-CoV-2, RNA, NAAT NEGATIVE SARS CoV-2 (NEGATIVE)
[2024-11-17 20:45] LABS: INFLUENZA TYPE A Negative For Type A (NEGATIVE); INFLUENZA TYPE B Negative For Type B (NEGATIVE)
--- NOTE | 2024-11-17 20:48 | HMCIMG ---
EXAM: CT Head Without IV contrast. CLINICAL HISTORY: fall TECHNIQUE: Axial computed tomography images of the head/brain without intravenous contrast. COMPARISON: None provided. FINDINGS: BRAIN: Atrophy. Periventricular white matter changes felt secondary to chronic microangiopathy No evidence of acute hemorrhage. No mass lesion. No CT evidence for acute territorial infarct. No midline shift or extra-axial collections. VENTRICLES: No hydrocephalus. ORBITS: The orbits are unremarkable. SINUSES AND MASTOIDS: The paranasal sinuses and mastoid air cells are clear. BONES: No fracture. SOFT TISSUES: Unremarkable. IMPRESSION: No acute intracranial abnormality. /[place]
[2024-11-17] MEDS: ASPIRIN 325MG TAB PO ONE (21:29)
[2024-11-17] MEDS ORDERED: VANCOMYCIN PROTOCOL PER PHARMACY IV SCH (21:30)
--- NOTE | 2024-11-17 21:39 | HP ---
History of Present Illness Reason for Visit: fever Past Medical History Patient History: Diabetes mellitus SISTER, DAUGHTER SON SON ADDITIONAL PAST MEDICAL HISTORY: [] SOCIAL HISTORY: [] SURGICAL HISTORY: [] Review of Systems Allergies: Coded Allergies: No Known Allergies (Unverified Allergy, Unknown, 07/29/24) Scheduled Aspirin (Aspirin EC), 81 MG PO DAILY, (Reported) Atorvastatin Calcium (Lipitor), 40 MG PO HS, (Reported) Brimonidine Tartrate/Timolol (Brimonidine-Timolol 0.2%-0.5%), 1 DROP OP BID, (Reported) Donepezil HCl (Donepezil HCl), 5 MG PO HS, (Reported) Gabapentin (Neurontin), 300 MG PO BID, (Reported) Exam Vital Signs Vital Signs Date Time Temp Pulse Resp B/P (MAP) Pulse Ox O2 Delivery O2 Flow Rate FiO2 11/17/24 20:57 89 17 102/47 100 Room Air* 0 21 11/17/24 20:26 101.1 Assessment/Plan ASSESSMENT: [] PLAN: [] DENISE CROWEP Nov 17, 2024 21:39
--- NOTE | 2024-11-17 21:44 | HP ---
History of Present Illness Reason for Visit: fever History of Present Illness Mr. Bennett is a 74-year-old male that was seen and examined today on 11/17/2024. Patient is a poor historian and personal health due to past medical history of dementia. Patient's , Erma Thomas is at bedside. Patient says that patient came to the emergency department with a chief complaint of weakness. Onset was today at 5:00 p.m.. Location is to bilateral lower extremities. Duration is constant. Character is described as, "he was just sitting in the sofa all day and sleeping more than usual. There was no alleviating factors. There was no aggravating factors. Spouse reports associated fever and chills. Today in the emergency department WBCs 14.7, 93%, platelet this is a seven, glucose 227 mg/dL, lactic acid 4.4, troponin 350, flu was negative, COVID is negative, no urinalysis has been collected or sent to lab, CT of head is unremarkable, chest x-ray is pending radiology interpretation however my initial impression is that there was no infiltrates or consolidation. Additionally shereen enciso had a temperature of 101.1, heart rate 104, together with lactic acid of 4.4 WBCs 14.7 patient met clinical sepsis criteria. Past Medical History Patient History: Diabetes mellitus SISTER, DAUGHTER SON SON ADDITIONAL PAST MEDICAL HISTORY: [] SOCIAL HISTORY: [] SURGICAL HISTORY: [] Review of Systems General: Fever, Chills; No Night Sweats, No Fatigue, No Malaise, No Appetite, No Other HEENT: No Head Aches, No Visual Changes, No Eye Pain, No Ear Pain, No Dysphasia, No Sinus Congestion, No Post Nasal Drip, No Sore Throat, No Other Pulmonary: No Dyspnea, No Cough, No Pleuritic Chest Pain, No Other Cardiovascular: No: Chest Pain, Palpitations, Orthopnea, Paroxysmal Noc. Dyspnea, Edema, Lt Headedness, Other Gastrointestinal: No: Nausea, Vomiting, Abdominal Pain, Diarrhea, Constipation, Melena, Hematochezia, Other Genitourinary: No Dysuria, No Frequency, No Incontinence, No Hematuria, No Retention, No Other Musculoskeletal: No: other, neck pain, shoulder pain, arm pain, back pain, hand pain, leg pain, foot pain Skin: No Urticaria, No Rash, No Other Neurological: Weakness; No: Numbness, Incoordination, Change in speech, Confusion, Seizures, Other Allergies: Coded Allergies: No Known Allergies (Unverified Allergy, Unknown, 07/29/24) Scheduled Aspirin (Aspirin EC), 81 MG PO DAILY, (Reported) Atorvastatin Calcium (Lipitor), 40 MG PO HS, (Reported) Brimonidine Tartrate/Timolol (Brimonidine-Timolol 0.2%-0.5%), 1 DROP OP BID, (Reported) Donepezil HCl (Donepezil HCl), 5 MG PO HS, (Reported) Gabapentin (Neurontin), 300 MG PO BID, (Reported) Metformin HCl (Metformin HCl), 1,000 MG PO BIDMEALS, (Reported) Sulfamethoxazole/Trimethoprim (Bactrim Ds Tablet), 1 TAB PO BID, (Reported) Exam Vital Signs Vital Signs Date Time Temp Pulse Resp B/P (MAP) Pulse Ox O2 Delivery O2 Flow Rate FiO2 11/17/24 20:57 89 17 102/47 100 Room Air* 0 21 11/17/24 20:26 101.1 General Appearance: Alert, Oriented X3, Cooperative, mild distress HEENT: Atraumatic, EOMI Respiratory: Clear to auscultation, Normal air movement, NL respiratory effort Cardiovascular: Regular rate, Regular rhythm, Normal S1, Normal S2 Abdominal: Normal bowel sounds, Soft, No tenderness Extremities: No edema Skin: No significant lesion Neuro: Normal speech, Strength at 5/5 X4 ext, Sensation intact, Cranial nerves 3-12 NL Psych/Mental Status: Mental status NL, Mood NL, Thoughts/Content NL Assessment/Plan ASSESSMENT: [ Sepsis, POA Lactic acidosis, POA Leukocytosis, POA Thrombocytopenia, POA Uncontrolled Diabetes mellitius type2, POA Elevated troponin, POA Dementia Hyperlipidemia CAD Hypertension] PLAN: [ Admit patient to medical floor as inpatient status. Place patient on telemetry monitoring. Sepsis, lactic acidosis, leukocytosis: Fluid resuscitation with lactated Ringer's 30 mL/kg Empiric antibiotic therapy with Zosyn Check blood culture, follow up with the results Reviewed patient's lactic acid which was elevated at 4.4 Recheck lactic acid in a.m. Check procalcitonin, follow up with the results No urinalysis has been collected or sent to lab at time of admission Urinalysis requested, follow up with the results Radiology report on chest x-ray is pending, however my initial impression is that there was no infiltrates or consolidation Thrombocytopenia: Avoid anticoagulation throughout this hospitalization except for aspirin. Diabetes mellitus type 2: Check hemoglobin A1c in a.m. Glucometer checks a.c. and HS 1800 ADA diet Humulin R sliding scale Elevated troponin: Administer aspirin 325 mg by mouth times 1 dose Continue aspirin 81 mg by mouth once daily Nitroglycerin sublingual 0.4 mg as needed for chest pain every 5 minutes, max 3 doses, hold for systolic blood pressure less than 100 mmHg. Trend troponin every 6 hours x 3 sets Supplemental oxygen to maintain O2 saturation greater than 92% Consult cardiology if any elevation in troponin or troponin uptrending, or if patient deemed to need stress test by daytime rouding service. Dementia, hyperlipidemia, CAD, hypertension: Consider resuming home medications once they have been reconciled. At time of admission home medications has been reconciled. For now swollen Fall precautions Hydralazine 10 mg IV every 4 hours for systolic blood pressure greater than 160 mmHg GI prophylaxis, famotidine DVT prophylaxis, Lovenox ADVANCED CARE PLANNING 1. Which of the following were discussed? Hospice Care - Yes Therapeutic options - yes Advance Directives - Yes - patient does not have any advance directives in place at this time, however his Erma can make decisions for him if he becomes unable. Other discussions - wishes for patient to remain a full code at this time 2. Discussed with who? Erma Thomas 3. Voluntary nature of this service was explained to the patient? Yes 4. Amount of time spent - ___16 minutes____ 5. Reviewed by Physician? (if this service was performed by NPP) Yes This document was generated in part using voice recognition software, occasional wrong word or sound alike substitutions may have occurred due to the inherent limitations of voice recognition software. Read the chart carefully and recognize using context, where the substitutions have occurred. Although every effort was made to edit the content, production clerks supervisor and typing errors may occur ATTESTATION BY PHYSICIAN I have seen and examined the patient. I reviewed the documentation, medical decision making, and treatment plan as noted by the mid-level provider above. I agree with the findings and plan of care. ] DENISE CROWE [facility] Nov 17, 2024 21:44
[2024-11-17] MEDS: LACTATED RINGERS 1000ML 2,040 ML IV ONE (21:53)
[2024-11-17] MEDS: VANCOMYCIN 2GM/500 ML BAG 500 ML IV ONE (21:54)
[2024-11-17] MEDS ORDERED: NITROGLYCERIN 0.4 MG SL TAB SL PRN (22:00)
--- NOTE | 2024-11-17 22:01 | ERN ---
General Chief Complaint: Sepsis Stated Complaint: GBW ONSET THIS AM Time Seen by MD: 20:01 Time Seen by Midlevel: 20:01 Source: patient, family (), EMS History of Present Illness Initial Comments The patient is a 74-year-old male being brought in by EMS for evaluation of generalized body weakness, fever, and diarrhea that started today. According to EMS the patient was found on the floor. The patient denies falling and hitting his head but states he was too weak to get out of bed so he just laid on the floor. Patient was unable to get up on his own. On arrival to the emergency department the patient is only concern is generalized body weakness. Allergies: Coded Allergies: No Known Allergies (Unverified Allergy, Unknown, 07/29/24) Home Meds Reported Medications Brimonidine Tartrate/Timolol (Brimonidine-Timolol 0.2%-0.5%) 0.2 %-0.5 % Drops, 1 DROP OP BID for 30 Days, #5 ML 0 Refills 10/13/24 Aspirin (Aspirin EC) 81 Mg Tablet.dr, 81 MG PO DAILY, TAB 09/22/24 Atorvastatin Calcium (LIPITOR) 40 Mg Tablet, 40 MG PO HS for CHOLESTEROL, TAB 09/22/24 Gabapentin (Neurontin) 300 Mg Capsule, 300 MG PO BID for NEUROPATHY, CAP 09/22/24 Donepezil HCl (Donepezil HCl) 5 Mg Tablet, 5 MG PO HS for DEMENTIA, TAB 09/22/24 Past Medical History Past Medical History: Anemia, Diabetes-Type II, High Cholesterol, Heart Disease, Hypertension Past Surgical History: CABG Surgical History Other: BACK SURGERY ROS Dictation CONSTITUTIONAL: Negative except for HPI HEAD/FACE: Negative except for HPI EENT: Negative except for HPI RESPIRATORY: Negative except for HPI GASTROINTESTINAL/ABDOMINAL: Negative except for HPI GENITOURINARY: Negative except for HPI MUSCULOSKELETAL: Negative except for HPI INTEGUMENTARY: Negative except for HPI NEUROLOGICAL/PSYCH: Negative except for HPI HEMATOLOGIC/LYMPHATIC: Negative except for HPI All Systems Negative, Except as noted above. 13 point review of systems assessed and all negative except for above. Physical Exam Physical Exam Dictation Vital Signs reviewed General Appearance: Alert, oriented x 3, no acute distress, well developed, nourished. Head and Face: non-traumatic. Eyes: PERRL, pink conjunctivas, eyelid no trauma, anterior chamber with arcus senilis. Ears: Pinnas intact and no signs of trauma or erythema ear canals clear and no discharge TM no erythema Nose: No discharge, no bleeding. Oropharynx: Mouth normal, tongue pink, pharynx clear,no erythema, tonsils no exudates, no abscesses noted, mucous membrane moist Neck: Supple, non-tender, no thyromegaly, no masses, no JVD, no bruits Breast:Deferred Chest:No tenderness, no crepitus, no paradoxical movement, no retractions Lungs:Clear, well-ventilated, symmetric, no rales, no wheezing, no rhonchi, no stridor, good breath sounds bilaterally Heart: Regular rate, regular rhythm, no murmur, no gallops Vascular: no peripheral edema, Abdomen: Soft, positive bowel sounds, nondistended, no guarding, nontender, no rebound, no masses no hepatomegaly, no splenomegaly, no Ortez's sign, no hernias. Rectal: Deferred Genital: Deferred Neurological: Normal speech, motor function intact, sensory function intact Musculoskeletal: Neck nontender, full range of motion, back nontender, full range of motion, Extremities: nontender, full range of motion Skin: Color pink, dry, no turgor, no rash, no lacerations, no abrasions, no contusions. Lymphatic: Deferred Results Laboratory and Microbiology Lab and Micro Result Laboratory Tests Test 11/17/24 20:11 11/17/24 20:14 White Blood Count 14.7 K/uL (4.8-10.8) H Red Blood Count 3.04 MIL/uL (4.50-6.20) L Hemoglobin 9.5 g/dL (14.0-18.0) L Hematocrit 29.2 % (42-54) L Mean Corpuscular Volume 96.1 fL (79-99) Mean Corpuscular Hemoglobin 31.3 pg (27.0-33.0) Mean Corpuscular Hemoglobin Concent 32.5 g/dL (32.0-36.0) Red Cell Distribution Width 14.4 % (11.0-15.5) Platelet Count 67 K/uL (130-400) L Mean Platelet Volume 11.0 fL (7.5-10.5) H Immature Granulocyte % (Auto) 0.5 % (0-1) Neutrophils (%) (Auto) 93.1 % (40.0-77.0) H Lymphocytes (%) (Auto) 2.3 % (21.0-51.0) L Monocytes (%) (Auto) 3.4 % (3.0-13.0) Eosinophils (%) (Auto) 0.5 % (0.0-8.0) Basophils (%) (Auto) 0.2 % (0.0-5.0) Neutrophils # (Auto) 13.7 K/uL (1.8-7.7) H Lymphocytes # (Auto) 0.3 K/uL (1.0-4.8) L Monocytes # (Auto) 0.5 K/uL (0.1-1.0) Eosinophils # (Auto) 0.08 K/uL (0.00-0.70) Basophils # (Auto) 0.03 K/uL (0.00-0.20) Absolute Immature Granulocyte (auto 0.07 K/uL (0-1) Nucleated Red Blood Cells 0.0 % (0.0-0.19) White Cell Morphology Comment See comments Platelet Morphology Comment DECREASED Sodium Level 134 mmol/L (136-145) L Potassium Level 3.7 mmol/L (3.5-5.1) Chloride Level 99 mmol/L (101-111) L Carbon Dioxide Level 26 mmol/L (21-32) Blood Urea Nitrogen 19 mg/dL (7-18) H Creatinine 1.3 mg/dL (0.5-1.3) Glomerular Filtration Rate Calc 58 mL/min (>90) Random Glucose 227 mg/dL (70-105) H Lactic Acid Level 4.4 mmol/L (0.8-2.5) H Total Calcium 8.8 mg/dL (8.5-10.1) Magnesium Level 1.20 mg/dL (1.80-2.40) L Total Creatine Kinase 91 U/L (21-232) Troponin I High Sensitivity 350 ng/L (4-75) *H B-Type Natriuretic Peptide 205 pg/mL (0-100) H Influenza Type A Antigen Negative For Type A Influenza Type B Antigen Negative For Type B SARS-CoV-2, RNA, NAAT NEGATIVE SARS CoV-2 Labs Reviewed?: Yes MDM MDM: Differential diagnosis: Sepsis, urinary tract infection, pneumonia, Rationale: Tests considered and ordered secondary to shared decision making include: Previous outside records reviewed: Old ER visits. Risk of complication and/or morbidity or mortality of patient management: None Medications-Per medication reconciliation Need for hospitalization: Patient does meet criteria for hospitalization. Need for emergency major/minor surgery: No There are no social concerns with this patient. Prescription drug management Prescriptions will include symptomatic care Patient's prior external medical records from other ER visits were reviewed by me as indicated. Prior testing and results from previous visits were reviewed. Prior tests were taken into account with medical decision making and resource utilization, independent historian/historians were used to obtain complete medical history. I independently interpreted the test that were performed, results were reviewed by me and considered findings on radiology if ordered. Medical management and examination interpretation discussions were had by me with other qualified healthcare professionals as indicated for the patient's care. ED Course Orders Procedure Category Date Status Time 12 Lead Ekg Tracing- EKG 11/17/24 Logged Technical 20:05 Cbc With Differential LAB 11/17/24 Complete 20:05 Basic Metabolic Panel LAB 11/17/24 Complete 20:05 B-Type Natriuretic LAB 11/17/24 Complete Peptide 20:05 Creatine Kinase, Total LAB 11/17/24 Complete 20:05 Covid Rna Naat LAB 11/17/24 Complete 20:05 Influenza Type A & B, LAB 11/17/24 Complete Rapid 20:05 Magnesium LAB 11/17/24 Complete 20:05 Lactic Acid LAB 11/17/24 Complete 20:05 Blood Cult AMRITA 11/17/24 In Process 20:05 Troponin I High LAB 11/17/24 Complete Sensitivity 20:05 Urinalysis Profile LAB 11/17/24 Logged 20:05 Chest 1vw RAD 11/17/24 Taken 20:05 Ct Head/Brain W/O CT 11/17/24 Resulted Contrast 20:05 Acetaminophen 500mg PHA 11/17/24 Complete Tab (Tylenol 500mg T 20:30 0.9%Nacl 1000ml (Ns PHA 11/17/24 Complete 1000ml) 20:30 Zosyn 3.375gm+Ns 50ml PHA 11/17/24 Complete (Zosyn 3.375gm+Ns 20:30 Rapid (Group A Strep) LAB 11/17/24 Logged 20:41 Aspirin 325mg Tab PHA 11/17/24 Complete (Aspirin 325mg Tab) 21:00 0.9%Nacl 1000ml (Ns PHA 11/17/24 Complete 1000ml) 21:00 Vancomycin Protocol PHA 11/17/24 In Process (Vancomycin Protocol 21:30 Lactated Ringers PHA 11/17/24 In Process 1000ml (Lactated 22:00 Admit Orders ADM 11/17/24 Transmitted 21:33 Consistent Carb DIET 11/18/24 Transmitted Breakfast Basic Metabolic Panel LAB 11/18/24 Verified 04:00 Cbc With Differential LAB 11/18/24 Verified 04:00 Lactic Acid LAB 11/18/24 Verified 04:00 Magnesium LAB 11/18/24 Verified 04:00 Phosphorus LAB 11/18/24 Verified 04:00 Urinalysis Profile LAB 11/17/24 Logged 21:33 Procalcitonin LAB 11/17/24 In Process 21:33 Apply Knee High Teds CPOE 11/17/24 Transmitted 21:33 Apply Scds CPOE 11/17/24 Transmitted 21:33 Condition: CPOE 11/17/24 Transmitted 21:33 Nurse To Enter Home CPOE 11/17/24 Transmitted Medication 21:33 Oxygen By Nc/Pulse Ox CPOE 11/17/24 Transmitted 21:33 Telemetry Monitoring CPOE 11/17/24 Transmitted 21:33 Vital Signs(Adult CPOE 11/17/24 Transmitted Hospitalist) 21:33 Acetaminophen 325 Tab PHA 11/17/24 In Process (Tylenol 325mg Tab 22:00 Enoxaparin Sodium 40 PHA 11/18/24 In Process Mg/0.4 Ml (Lovenox) 09:00 Famotidine 20mg Tab PHA 11/18/24 In Process (Pepcid 20mg Tab) 09:00 Hydralazine 20mg Inj PHA 11/17/24 In Process (Apresoline 20mg In 22:00 Ondansetron 4mg Inj PHA 11/17/24 In Process (Zofran 4mg Inj) 22:00 Initiate DIANA 11/17/24 In Process Hyperglycemia Protoco 21:33 Insulin Regular, PHA 11/18/24 In Process Human 3ml (Humulin R 07:30 Hemoglobin A1c LAB 11/18/24 Verified 04:00 Aspirin 81mg Ec Tab PHA 11/18/24 In Process (Aspirin 81mg Ec Tab 09:00 Nitroglycerin 0.4mg PHA 11/17/24 In Process Sl Tab (Nitrostat) 22:00 Troponin I High LAB 11/18/24 Verified Sensitivity 02:00 Troponin I High LAB 11/18/24 Verified Sensitivity 08:00 Troponin I High LAB 11/18/24 Verified Sensitivity 14:00 Vancomycin Trough LAB 11/20/24 Verified 21:00 Vancomycin 2gm/500 Ml PHA 11/17/24 In Process Bag (Vancomycin 2g 22:00 Vancomycin 1.25 PHA 11/18/24 In Process Gm/250 Ml Bag 22:00 Fall Precautions CPOE 11/17/24 Transmitted 21:39 Morphine 2mg Syg PHA 11/17/24 In Process (Morphine 2mg Syg) 22:00 Zosyn 3.375gm+Ns 50ml PHA 11/18/24 In Process (Zosyn 3.375gm+Ns 05:00 Current Medications Medications (Trade) Dose Ordered Sig/Ann Marie Route PRN Reason Start Time Stop Time Status Last Admin Dose Admin Acetaminophen (TYLenol 325MG TAB) 650 mg Q6H PRN PO TEMPERATURE GREATER THAN 101.5 11/17/24 22:00 12/17/24 21:59 Acetaminophen (TYLenol 500MG TAB) 1,000 mg ONCE ONCE PO 11/17/24 20:30 11/17/24 20:31 DC 11/17/24 20:26 Aspirin (Aspirin 325mg Tab) 325 mg ONCE ONCE PO 11/17/24 21:00 11/17/24 21:05 DC 11/17/24 21:29 Aspirin (Aspirin 81mg Ec Tab) 81 mg DAILY PO 11/18/24 09:00 12/18/24 08:59 Enoxaparin Sodium (Lovenox) 40 mg DAILY SQ 11/18/24 09:00 12/18/24 08:59 Famotidine (Pepcid 20mg Tab) 20 mg DAILY PO 11/18/24 09:00 12/18/24 08:59 Hydralazine HCl (APRESOLine 20MG INJ) 10 mg Q6H PRN IV For:SBP above 160;DBP above 90 11/17/24 22:00 12/17/24 21:59 Insulin Human Regular (humuLIN R 100 UNIT/ML 3ML) INSULIN SLIDING SCAL... ACHS SQ 11/18/24 07:30 12/18/24 07:29 Lactated Ringer's 2,040 ml @ 680 mls/hr ONCE ONCE IV 11/17/24 22:00 8/2/25 00:59 Morphine Sulfate (morPHINE 2MG SYG) 2 mg Q4H PRN IVP SEVERE PAIN (7-10) 11/17/24 22:00 11/24/24 21:59 Nitroglycerin (Nitrostat) 0.4 mg PROTOCOL PRN SL CHEST PAIN 11/17/24 22:00 12/17/24 21:59 Ondansetron HCl (zoFRAN 4MG INJ) 4 mg Q6H PRN IV NAUSEA/VOMITING 11/17/24 22:00 12/17/24 21:59 Piperacillin Sod/ Tazobactam Sod (Zosyn 3.375gm+NS 50ml) 3.375 gm ONCE ONCE IV 11/17/24 20:30 11/17/24 20:31 DC 11/17/24 20:25 Piperacillin Sod/ Tazobactam Sod (Zosyn 3.375gm+NS 50ml) 3.375 gm Q8H IV 11/18/24 05:00 11/28/24 04:59 Sodium Chloride 1,000 ml @ 0 mls/hr ONCE ONCE IV 11/17/24 20:30 11/17/24 20:31 DC 11/17/24 20:25 Sodium Chloride 1,000 ml @ 0 mls/hr ONCE ONCE IV 11/17/24 21:00 11/17/24 21:05 DC 11/17/24 21:29 Vancomycin HCl 250 ml @ 125 mls/hr Q24H IV 11/18/24 22:00 11/28/24 21:59 Vancomycin HCl 500 ml @ 250 mls/hr ONCE ONCE IV 11/17/24 22:00 11/17/24 23:59 11/17/24 21:54 Vancomycin HCl (Vancomycin Protocol) 1 each AD IV 11/17/24 21:30 12/01/24 21:29 Vital Signs Date Time Temp Pulse Resp B/P (MAP) Pulse Ox O2 Delivery O2 Flow Rate FiO2 11/17/24 20:57 89 17 102/47 100 Room Air* 0 21 11/17/24 20:26 101.1 11/17/24 20:01 101.1 104 20 102/50 98 Room Air 0 DX & DISP Disposition: Inpatient Departure Impression: Primary Impression: Sepsis Additional Impressions: Lactic acidosis, Elevated troponin Condition: Stable Referrals: SAM FIGUEROA PA-C (PCP) I have reviewed the case, and I agree with, Diagnosis and Plan I performed the substantive portion of the visit. I have reviewed and personally made and approve the management plan that is documented in the note b y myself or the WALT. I acknowledge for responsibility for the patient's management plan. SIMA MATTHEWS Nov 17, 2024 22:01
--- NOTE | 2024-11-17 22:28 | HMCIMG ---
EXAM: CR Chest, 1 view CLINICAL HISTORY: Shortness of breath. COMPARISON: Chest radiograph dated 10/05/2024. FINDINGS: The lungs show no infiltrates or other acute findings. No pleural effusion or pneumothorax. The cardiomediastinal silhouette is within normal limits. Mild atherosclerotic aorta. No acute osseous abnormality. IMPRESSION: No acute cardiopulmonary process is evident. No interval changes. /Eminence
[2024-11-17 22:40] VITALS: O2SAT 96
[2024-11-17] MEDS: MAGNESIUM 2GM PREMIX 50ML 50 ML IV PRN (22:43)
[2024-11-17] MEDS: MAGNESIUM 2GM PREMIX 50ML 50 ML IV ONE (22:45)
[2024-11-17 23:40] VITALS: BP 122/57; PULSE 87; RESP 18; TEMP 98.2
--- NOTE | 2024-11-17 23:40 | NUR ---
ADMIT PT ADMITTED TO ROOM 419, AAOX3 WITH GBW. ADMISSION CARE DONE. CONTINUED INFUSION OF IV VANCO FROM ER. PLACED COMFORTABLY IN BED. MONITORED VS, STABLE. PLACED ON TELE MONITOR # 20, NSR WITH HR=80. PLACED SCD'S TO BLE. ADMISSION DATA BASE COMPLETED. CALL LIGHT WITHIN REACH. SIDE RAILS RAISED X2. BED ALARM ACTIVATED. UPDATED HOME MEDS IN THE COMPUTER. PT'S SPOUSE IS STAYING THE NIGHT. ORIENTED TO ROOM AND UNIT. IN FOR MORE CARE AND MANAGEMENT. Addendum: 11/18/24 at 0116 by SURAJ LUNDBERG RN RN Amended: Links added.
[2024-11-18] VITALS (9 sets, daily range): BP systolic 114–138; BP diastolic 51–61; PULSE 72–96; RESP 16–18; TEMP 97.7–100.2; O2SAT 97–98
[2024-11-18] MEDS ORDERED: METF-446 PO (00:11)
[2024-11-18] MEDS ORDERED: SULF1TAB42 PO (00:17)
--- NOTE | 2024-11-18 00:40 | NUR ---
TRAFFIC ASSISTANT TRAFFIC ASSISTANT DENISE CROWE ON THE FLOOR TO SEE PT. PLEASE REFER TO CPOE FOR NEW ORDERS.
[2024-11-18] MEDS ORDERED: PoTASSium chl 10% ELIXIR 20MEQ 20 MEQ/15 ML UDCUP PO PRN (01:30)
[2024-11-18 02:22] LABS: IMMATURE GRANULOCYTE ABSOLUTE 0.09 K/uL (0-1); NUCLEATED RED BLOOD CELLS 0.0 % (0.0-0.19); PLATELET COUNT (AUTO) 54 K/uL (130-400); RED BLOOD CELL COUNT(AUTO) 2.92 MIL/uL (4.50-6.20); RED CELL DISTRIBUTION WIDTH 14.5 % (11.0-15.5); WHITE BLOOD COUNT (AUTO) 15.4 K/uL (4.8-10.8)
[2024-11-18 02:34] LABS: CREATININE 0.9 mg/dL (0.5-1.3); GLOMERULAR FILTR. RATE CALC 91.0 mL/min (>90); GLUCOSE,RANDOM 164.0 mg/dL (70-105); PHOSPHORUS 3.0 mg/dL (2.5-4.9); SODIUM SERUM 135.0 mmol/L (136-145); UREA NITROGEN, BLOOD 16.0 mg/dL (7-18)
--- NOTE | 2024-11-18 02:40 | NUR ---
TROPONIN LAB CALLED FOR CRITICAL RESULTS OF [id number]. PAGED MANGLE ROLLER RAIL LOADER VIA ANSWERING SERVICE. MANGLE ROLLER DENISE CROWE CALLED BACK AT 0244. REFERRED NEW LAB VALUES. NEW ORDER FOR CARDIOLOGY CONSULT RECEIVED, PLEASE REFER TO CPOE.
[2024-11-18] MEDS: ZOSYN 3.375GM +NS 50ML IV SCH (05:05)
--- NOTE | 2024-11-18 05:05 | NUR ---
MEDS PT SLEPT AT INTERVALS DURING THE SHIFT. NO COMPLAINTS VERBALIZED, NO DISTRESS NOTED. DUE IV ZOSYN HUNG. KEPT RESTED AND COMFORTABLE IN BED. FAMILY AT BEDSIDE. FOR MORE CARE AND MANAGEMENT.
[2024-11-18] MEDS ORDERED: ENOXAPARIN SODIUM 40 MG/0.4 ML SYRINGE SQ SCH (09:00)
--- NOTE | 2024-11-18 09:38 | EKG ---
[facility] Test Date: 2024-11-17 Test Time: 20:06:26 Pat Name: SHANDA SALAS Department: [facility] Room: 419 1 Gender: Male Sanitarian: [id number] : 1950 Requested By: SIMA MATTHEWS Order Number: [id number] Reading MD: Krishan Diaz Measurements Intervals [place] Rate: 106 P: 257 OR: 57 QRS: -42 QRSD: 146 T: 113 QT: 393 QTc: 521 Interpretive Statements Sinus or ectopic atrial tachycardia Left bundle branch block ST elevation secondary to IVCD Compared to ECG 09/21/2024 15:39:30 Sinus rhythm no longer present First degree AV block no longer present ST (T wave) deviation still present Electronically Signed On 11-19-2024 11:03:46 CDT by Krishan Diaz Please click the below link to view image of tracing.
[2024-11-18] MEDS: FAMOTIDINE 20MG TAB PO SCH (09:48)
[2024-11-18] MEDS: ASPIRIN 81 MG EC TAB PO SCH (09:48)
--- NOTE | 2024-11-18 10:42 | NUR ---
SPOKE TO DR. WILHELM. LASIX TO BE PLACED ON HOLD PTS CXRAY LOOKED GOOD & HIS BNP WAS A LITTLE ELEVATED BUT BLOOD PRESSURE THIS MORNING WAS 115/52. SAID HE WOULD CANCEL IT.
--- NOTE | 2024-11-18 10:49 | CONS ---
[facility] CARDIOLOGY CONSULTATION NOTE Date Patient Seen: Nov 18, 2024 Time of Visit: 10:43 Requesting Physician: [ ] Reason for Consultation: [ ] History of Present Illness: [Patient presents with general body weakness of onset in the last 24-48 hours with fever and diarrhea. He has not been experiencing chest pain or chest pressure, syncope or presyncope, or any other neurologic symptoms apart from general weakness. Patient speaks in a very faint voice but does seem to have proper orientation to person place and time, and his family is very helpful with history. They relate that he was in this hospital with a blood borne infection and was discharged to [facility]. He had a couple of weeks of IV antibiotics at [facility], then was supposed to be moved to another facility (according to family) but was instead discharged home. They believe he never completed his prescribed course of antibiotics. I do not have records to support that. ] Past Medical History: [Critical aortic stenosis treated with extra-large Cristhian bioprosthetic minimally invasive valve replacement seven years ago Previous [facility] notes reference coronary artery bypass grafting, which did not occur; Dr. King is his payroll tax analyst and comments specifically that coronaries were normal. Cervical myelomalacia status post neurosurgical consultation and steroid injection, never treated surgically Diabetes TIA occurred within the last year, hospitalized here Treated for septic shock previously, then experienced hypertensive crisis requiring treatment on resolution of sepsis Acute kidney injury during previous visit with sepsis ] Past Surgical History: [Aortic valve placement seven years ago] Family History: [Noncontributory ] Social History: [Japanese-speaking, supportive family ] Habits: [Never] smoker. [Denies] alcohol consumption. [Denies] illicit drug use Home Meds: [ ] Current Meds: [ ] Review of Systems: CONST: [Admits fever and fatigue, no weight changes.] EYES: [No recent vision problems.] ENT: [No congestion, ear pain, or sore throat.] C/V: [No chest pain, palpitations, or edema.] RESP: [No cough, congestion, wheezing or shortness of breath. Denies history of COPD] GI: [No abdominal pain, nausea, vomiting, constipation, or history of ulcer or reflux. Admits recent onset diarrhea.] : [No incontinence or dysuria. No history of urinary hesitance or prosthetic obstruction] SKIN: [No rash.] NEURO: [No headache, no history of stroke or TIA, no focal numbness. Admits generalized weakness, dizziness, denies seizures.] PSYCH: [No depression or anxiety.] HEME: [No abnormal bruising or bleeding.] LYMPH: [No swollen glands.] Physical Examination: GENERAL: [No acute distress. Elderly and frail, speaks in a very soft voice] HEAD: [Normal with no signs of head trauma.] EYES: [PERRLA, EOMI, conjunctiva and sclera normal.] ENT: [Hearing grossly intact, normal oropharynx.] NECK: [Supple without JVD. There is no tenderness, lymphadenopathy, or masses. No thyromegaly. Normal carotid upstrokes without bruits.] LUNGS: [Clear breath sounds bilaterally. There are no rales. No wheezes, or rhonchi. Nonlabored respiration] HEART: [Normal rate and rhythm. Normal S1 and prominent bioprosthetic S2 with 2/6 aortic outflow mumur, no diastolic murmur, no gallop or rub.] VASC: [Peripheral pulses +2 bilaterally.] ABD: [Bowel sounds normal, soft, nontender, no masses, no organomegaly. No audible bruits.] : [Not examined] LYMPH: [No lymphadenopathy noted.] EXT: [No clubbing, cyanosis or edema.] SKIN: [No rashes or lesions noted.] NEURO: [Awake, alert, and oriented x3. No focal sensory or strength deficits noted.] Vital Signs (last 8hr) Date Time Temp Pulse Resp B/P (MAP) Pulse Ox O2 Delivery O2 Flow Rate FiO2 11/18/24 09:50 98 Room Air* 0 21 11/18/24 08:00 97.9 77 18 115/52 98 Room Air 11/18/24 04:00 98.2 72 16 114/51 98 Room Air Laboratory: [ ] Hematology Labs: Test 11/18/24 02:14 11/17/24 20:11 Range/Units White Blood Count 15.4 H 4.8-10.8 K/uL Red Blood Count 2.92 L 4.50-6.20 MIL/uL Hemoglobin 9.0 L 14.0-18.0 g/dL Hematocrit 27.6 L 42-54 % Mean Corpuscular Volume 94.5 79-99 fL Mean Corpuscular Hemoglobin 30.8 27.0-33.0 pg Mean Corpuscular Hemoglobin Concent 32.6 32.0-36.0 g/dL Red Cell Distribution Width 14.5 11.0-15.5 % Platelet Count 54 L 130-400 K/uL Mean Platelet Volume 11.1 H 7.5-10.5 fL Immature Granulocyte % (Auto) 0.6 0-1 % Neutrophils (%) (Auto) 87.2 H 40.0-77.0 % Lymphocytes (%) (Auto) 6.8 L 21.0-51.0 % Monocytes (%) (Auto) 5.0 3.0-13.0 % Eosinophils (%) (Auto) 0.2 0.0-8.0 % Basophils (%) (Auto) 0.2 0.0-5.0 % Neutrophils # (Auto) 13.4 H 1.8-7.7 K/uL Lymphocytes # (Auto) 1.1 1.0-4.8 K/uL Monocytes # (Auto) 0.8 0.1-1.0 K/uL Eosinophils # (Auto) 0.03 0.00-0.70 K/uL Basophils # (Auto) 0.03 0.00-0.20 K/uL Absolute Immature Granulocyte (auto 0.09 0-1 K/uL Nucleated Red Blood Cells 0.0 0.0-0.19 % White Cell Morphology Comment See comments Platelet Morphology Comment DECREASED Chemistry Labs: Test 11/18/24 07:34 11/18/24 05:08 11/18/24 02:14 11/17/24 20:11 Range/Units Troponin I High Sensitivity 3303 *H 4-75 ng/L Whole Blood Glucose 142 H 70-110 MG/DL Sodium Level 135 L 136-145 mmol/L Potassium Level 4.0 3.5-5.1 mmol/L Chloride Level 103 101-111 mmol/L Carbon Dioxide Level 27 21-32 mmol/L Blood Urea Nitrogen 16 7-18 mg/dL Creatinine 0.9 0.5-1.3 mg/dL Glomerular Filtration Rate Calc 91 >90 mL/min Random Glucose 164 H 70-105 mg/dL Lactic Acid Level 0.8 0.8-2.5 mmol/L Total Calcium 8.2 L 8.5-10.1 mg/dL Phosphorus Level 3.0 2.5-4.9 mg/dL Magnesium Level 2.00 1.80-2.40 mg/dL Hemoglobin A1c 8.1 H 4.0-6.0 % Estimated Average Glucose (eAG) 186 H 70-126 mg/dL Total Creatine Kinase 91 21-232 U/L B-Type Natriuretic Peptide 205 H 0-100 pg/mL Procalcitonin 0.40 0.05-0.5 ng/mL Diagnostics / Radiology: [I reviewed the chest x-ray and did not find it suggestive of heart failure; there is no vascular redistribution, no effusions, and if there is an infiltrate it is minimal perivascular the right base] Assessment: [Elevated BNP is of uncertain significance, possibly an acute phase reactant for a patient who appears to be again infected. He has presented with general body weakness, diarrhea, leukocytosis and reportedly had fever. I do not think the patient is in heart failure and I would discontinue the furosemide that was ordered. Also uncertain significance of the elevated troponin. Four thousand is a significantly elevated troponin, but the patient had no coronary disease seven years ago and has not experienced any chest pain or chest pressure or dyspnea either now or recently. I will repeat the CPK and check an echocardiogram. During previous hospitalization with sepsis the echo showed 40-45% ejection fraction in comparison to previously recorded 60-65% EF in Dr. King office notes. This echo may have been performed at the time the patient was septic and there may have been some reversible ventricular dysfunction, or there may be a real change in ventricular function as of previous visit here. My greatest concern is whether the patient has endocarditis. He has a bioprosthetic valve and recurrent admissions for sepsis. Blood cultures are pending. I think the patient should have MYKE. I do not know whether his recent TIA could have been embolic, and if so it is possible his current elevation of troponin could also be embolic. ] Plan: [Dr. King knows the patient and will be rounding tomorrow. In the meantime, blood cultures have been drawn and antibiotics are started. I am cancelling the furosemide IV order because I do not think the patient is actually in heart failure. An echocardiogram is ordered stat for today and I will review for potential wall motion abnormalities and reassessment of ventricular function, and to see if I can find any evidence of vegetation on the aortic valve. 90 minutes was spent to review previous records, review office records, review imaging, evaluate the patient, coordinate the information and document the result] DAVID WILHELM MD Nov 18, 2024 10:49
--- NOTE | 2024-11-18 11:11 | PN ---
[facility] PROGRESS NOTE Date of Service: Nov 18, 2024 Time of Service: 11:03 SUBJECTIVE: [ ] Mr. Bennett is a 74-year-old male that was seen and examined today on 11/17/2024. Patient is a poor historian and personal health due to past medical history of dementia. Patient's , Erma Thomas is at bedside. Patient says that patient came to the emergency department with a chief complaint of weakness. Onset was today at 5:00 p.m.. Location is to bilateral lower extremities. Duration is constant. Character is described as, "he was just sitting in the sofa all day and sleeping more than usual. There was no alleviating factors. There was no aggravating factors. Spouse reports associated fever and chills. 11/18/24 patient was seen earlier patient is lying in bed with family at bedside. Patient was discharged from [facility] for long-term IV antibiotics discharged home with oral antibiotics we will have ID on board. Patient denied chest pain or shortness for breath. REVIEW OF SYSTEMS CONSTITUTIONAL: Denies fevers, chills, or night sweats. No unintentional weight loss reported. NEUROLOGICAL: Denies headache, amaurosis fugax, motor weakness, sensory deficit, vertigo/spinning sensation, gait abnormalities, or tremors. ENT: No hearing loss, otalgia, otorrhea, rhinitis, rhinorrhea, hoarseness, or s ore throat. CARDIOVASCULAR: Denies any exertional angina, dyspnea on exertion, orthopnea, paroxysmal nocturnal dyspnea, palpitations, life-threatening arrhythmias, claudication. PULMONARY: Denies any shortness of breath, cough, phlegm/sputum, hemoptysis, pleuritic chest pain. SLEEP: Denies morning headaches, daytime somnolence or napping. Denies difficulty falling asleep, staying asleep, waking from sleep. Denies knowledge of snoring. GASTROINTESTINAL: Denies any type of dysphagia to either liquids or solids. Denies nausea, vomiting, pyrosis, early satiety, abdominal pain, diarrhea, constipation, or changes in stool consistency or caliber. Denies coffee-ground emesis, hematemesis, hematochezia, or melanotic stools. GENITOURINARY: Denies frequency, urgency, nocturia, hematuria or incontinence (Storage/Irritative symptoms.) Low urinary stream, straining to void, urinary intermittency or hesitancy, splitting of the voiding stream, terminal dribbling. ENDOCRINOLOGIC: Denies polyuria, polydipsia, polyphagia or heat/cold intolerances. HEMATOLOGIC: Denies thrombophilia/previous clots, or coagulopathy/bleeding disorders. ONCOLOGIC: Denies personal history of malignancy. DERMATOLOGIC: Denies rashes or pruritus. PSYCHIATRIC: Denies any suicidal or homicidal ideation. Denies hallucinations. PHYSICAL EXAM GENERAL APPEARANCE: The patient is awake, alert, and oriented, in no acute cardiopulmonary distress. NEUROLOGICAL: Cranial nerves II-XII grossly intact. Motor is 5/5 in bilateral upper and lower extremities proximal to distal. No sensory deficits. HEENT: Face is symmetric. Pupils are equal and reactive. Extraocular movements are intact. NECK: Supple. No JVD. No thyromegaly. No submental, submandibular, pre- /postauricular, occipital or supraclavicular lymphadenopathy. CHEST: Normal chest expansion. No Telemetry. LUNGS: Absence of any rales, rhonchi or any wheezing. CARDIOVASCULAR: Regular. S1 and S2 normal. No appreciable rubs, murmurs or gallops. ABDOMEN: Soft, nontender, and nondistended. There is no rebound, voluntary guarding, or rigidity. : Deferred. No Emmanuel. EXTREMITIES: Non-edematous and not cyanotic. No clubbing. Good capillary refill. SKIN: No skin breakdown. Vital Signs (last 8hr) Date Time Temp Pulse Resp B/P (MAP) Pulse Ox O2 Delivery O2 Flow Rate FiO2 11/18/24 09:50 98 Room Air* 0 21 11/18/24 08:00 97.9 77 18 115/52 98 Room Air 11/18/24 04:00 98.2 72 16 114/51 98 Room Air LABS: Laboratory: Test 11/18/24 07:34 11/18/24 05:08 11/18/24 02:25 11/18/24 02:14 Range/Units Troponin I High Sensitivity 3303 *H 4-75 ng/L Whole Blood Glucose 142 H 70-110 MG/DL Group A Streptococcus Rapid negative NEGATIVE White Blood Count 15.4 H 4.8-10.8 K/uL Red Blood Count 2.92 L 4.50-6.20 MIL/uL Hemoglobin 9.0 L 14.0-18.0 g/dL Hematocrit 27.6 L 42-54 % Mean Corpuscular Volume 94.5 79-99 fL Mean Corpuscular Hemoglobin 30.8 27.0-33.0 pg Mean Corpuscular Hemoglobin Concent 32.6 32.0-36.0 g/dL Red Cell Distribution Width 14.5 11.0-15.5 % Platelet Count 54 L 130-400 K/uL Mean Platelet Volume 11.1 H 7.5-10.5 fL Immature Granulocyte % (Auto) 0.6 0-1 % Neutrophils (%) (Auto) 87.2 H 40.0-77.0 % Lymphocytes (%) (Auto) 6.8 L 21.0-51.0 % Monocytes (%) (Auto) 5.0 3.0-13.0 % Eosinophils (%) (Auto) 0.2 0.0-8.0 % Basophils (%) (Auto) 0.2 0.0-5.0 % Neutrophils # (Auto) 13.4 H 1.8-7.7 K/uL Lymphocytes # (Auto) 1.1 1.0-4.8 K/uL Monocytes # (Auto) 0.8 0.1-1.0 K/uL Eosinophils # (Auto) 0.03 0.00-0.70 K/uL Basophils # (Auto) 0.03 0.00-0.20 K/uL Absolute Immature Granulocyte (auto 0.09 0-1 K/uL Nucleated Red Blood Cells 0.0 0.0-0.19 % Sodium Level 135 L 136-145 mmol/L Potassium Level 4.0 3.5-5.1 mmol/L Chloride Level 103 101-111 mmol/L Carbon Dioxide Level 27 21-32 mmol/L Blood Urea Nitrogen 16 7-18 mg/dL Creatinine 0.9 0.5-1.3 mg/dL Glomerular Filtration Rate Calc 91 >90 mL/min Random Glucose 164 H 70-105 mg/dL Lactic Acid Level 0.8 0.8-2.5 mmol/L Total Calcium 8.2 L 8.5-10.1 mg/dL Phosphorus Level 3.0 2.5-4.9 mg/dL Magnesium Level 2.00 1.80-2.40 mg/dL Total Creatine Kinase 106 21-232 U/L Test 11/17/24 20:14 11/17/24 20:11 Range/Units Influenza Type A Antigen Negative For Type A NEGATIVE Influenza Type B Antigen Negative For Type B NEGATIVE SARS-CoV-2, RNA, NAAT NEGATIVE SARS CoV-2 NEGATIVE White Cell Morphology Comment See comments Platelet Morphology Comment DECREASED Hemoglobin A1c 8.1 H 4.0-6.0 % Estimated Average Glucose (eAG) 186 H 70-126 mg/dL B-Type Natriuretic Peptide 205 H 0-100 pg/mL Procalcitonin 0.40 0.05-0.5 ng/mL Current Medications Medications (Trade) Dose Ordered Sig/Ann Marie Route PRN Reason Start Time Stop Time Status Last Admin Dose Admin Acetaminophen (TYLenol 325MG TAB) 650 mg Q6H PRN PO TEMPERATURE GREATER THAN 101.5 11/17/24 22:00 12/17/24 21:59 Aspirin (Aspirin 81mg Ec Tab) 81 mg DAILY PO 11/18/24 09:00 12/18/24 08:59 11/18/24 09:48 81 MG Enoxaparin Sodium (Lovenox) 40 mg DAILY SQ 11/18/24 09:00 11/18/24 01:27 DC Famotidine (Pepcid 20mg Tab) 20 mg DAILY PO 11/18/24 09:00 12/18/24 08:59 11/18/24 09:48 20 MG Hydralazine HCl (APRESOLine 20MG INJ) 10 mg Q6H PRN IV For:SBP above 160;DBP above 90 11/17/24 22:00 12/17/24 21:59 Insulin Human Regular (humuLIN R 100 UNIT/ML 3ML) INSULIN SLIDING SCAL... ACHS SQ 11/18/24 07:30 12/18/24 07:29 Magnesium Sulfate 50 ml @ 0 mls/hr PROTOCOL PRN IV RX MONITORING LEVELS & DOSING 11/17/24 23:00 11/18/24 01:30 DC 11/18/24 00:22 25 MLS/HR Magnesium Sulfate 50 ml @ 0 mls/hr PROTOCOL PRN IV h 11/18/24 01:30 12/18/24 01:29 Morphine Sulfate (morPHINE 2MG SYG) 2 mg Q4H PRN IVP SEVERE PAIN (7-10) 11/17/24 22:00 11/24/24 21:59 Nitroglycerin (Nitrostat) 0.4 mg PROTOCOL PRN SL CHEST PAIN 11/17/24 22:00 12/17/24 21:59 Ondansetron HCl (zoFRAN 4MG INJ) 4 mg Q6H PRN IV NAUSEA/VOMITING 11/17/24 22:00 12/17/24 21:59 Piperacillin Sod/ Tazobactam Sod (Zosyn 3.375gm+NS 50ml) 3.375 gm Q8H IV 11/18/24 05:00 11/28/24 04:59 11/18/24 05:05 3.375 GM Potassium Chloride 100 ml @ 100 mls/hr AD PRN IV POTASSIUM PROTOCOL 11/18/24 01:30 12/18/24 01:29 Potassium Chloride (K-Dur/Klor-Con 20meq) 20 meq AD PRN PO POTASSIUM PROTOCOL 11/18/24 01:30 12/18/24 01:29 Potassium Chloride (KCl 10% Elixir 20meq/15ml) 20 meq AD PRN PO POTASSIUM PROTOCOL 11/18/24 01:30 12/18/24 01:29 Vancomycin HCl 250 ml @ 125 mls/hr Q24H IV 11/18/24 22:00 11/28/24 21:59 Vancomycin HCl (Vancomycin Protocol) 1 each AD IV 11/17/24 21:30 12/01/24 21:29 DIAGNOSTICS / RADIOLOGY: [ ] ASSESSMENT: Sepsis,( TEMPERATURE 101.1 HEART RATE 104 LACTIC ACID 4.4 WBCS 140 POA Failed outpatient treatment. Elevated troponin most likely NV type II: in the setting of sepsis POA acute on chronic heart failure with EF 45-50% with exacerbation BNP elevated POa Thrombocytopenia, POA MULTIFOCAL ANEMIA HYPOKALEMIA Uncontrolled Diabetes mellitius type2, POA Severe protein calorie malnutrition with muscle atrophy POA Dementia Hyperlipidemia CAD Hypertension] PLAN: [ ] Admit: Medical-surgical floor condition: Guarded Status: Full code IVF: NS at 75 mL/hour Consultants infectious disease Antibiotics: Vancomycin IV, doxycycline IV. And Zosyn Microbiology Blood cultures in process Labs cbc, cmp, mag+ Replace electrolytes as needed as per protocol to keep potassium above 4.0 magnesium 2.0. Home medications reconciled PRN: MEDICATIONS Tylenol 650 mg po every 4 hrs for fever zofran 4 mg IV every 6 hrs for n/v Hydralazine 5 mg IV every 4 hrs systolic pressure > 160 bowel regiment: lactulose 20 gm PO BID PRN constipation Pain management: Supportive measures: DVT ppx, GI ppx all questions answered Supervising MD: Dr. Mona Mayers c/d This document was generated in part using voice recognition software, occasional wrong word or sound alike substitutions may have occurred due to the inherent limitations of voice recognition software. Read the chart carefully and recognize using context, where the substitutions have occurred. Although every effort was made to edit the content, wire mill rover and typing errors may occur ATTESTATION BY PHYSICIAN I have seen and examined the patient. I reviewed the documentation, medical decision making, and treatment plan as noted by the mid-level provider above. I agree with the findings and plan of care. Brittany Dunn MD, ELIZABETH NP Nov 18, 2024 11:11
[2024-11-18] MEDS: DOXYCYCLINE HYCLATE 100 MG TABLET PO SCH (15:04)
[2024-11-18 15:11] LABS: APPEARANCE,URINE CLEAR (CLEAR); GLUCOSE, URINE (UA) 300 mg/dL (NEGATIVE); LEUKOCYTE ESTERASE ,URINE NEGATIVE Leu/uL (NEGATIVE); NITRATE,URINE NEGATIVE (NEGATIVE); OCCULT BLOOD,URINE NEGATIVE (NEGATIVE)
[2024-11-18 15:12] LABS: ADD UA MICROSCOPIC YES
[2024-11-18 15:14] LABS: SQUAMOUS EPITHELIAL CELL,UR RARE /HPF (0-2)
--- NOTE | 2024-11-18 15:31 | NUR ---
DCP: INITIAL ASSESSMENT Patient lives with spouse, Mami Bennett. He has [facility] for nursing and PT. As per spouse, agency just started coming. Patient has no PHC services. He has rollator and cane. Patient needs help with ADLs and doesn't drive. Family assist as needed. PCP is RAVI Dhillon. Pharmacy [facility] Patient voiced no safety concerns regarding returning home and states she has no difficulty with housing or buying food. DCP is home. Addendum: 11/18/24 at 1534 by GABINO BARRIOS Amended: Links added.
--- NOTE | 2024-11-18 16:19 | CONS ---
INFECTIOUS DISEASE CONSULTATION DATE OF SERVICE: 11/18/2024. REQUESTING PHYSICIAN: Judith Watts NP REASON FOR CONSULTATION: Sepsis. HISTORY OF PRESENT ILLNESS: A 74-year-old male with history of hypertension, diabetes mellitus, dyslipidemia, and TIA, who presented to the hospital with fever. T-max in the emergency room was 101.1. He is also complaining of some diarrhea, which has resolved. No cough. No hemoptysis or pleuritic pain. The patient was recently admitted to this hospital, found to have Staphylococcal epidermidis bacteremia. Due to the presence of prosthetic aortic valve, the patient underwent a MYKE, which showed clean prosthetic valve with no evidence of endocarditis. The patient was treated with 4 weeks of IV antibiotics. The patient was discharged from [facility] few weeks ago. Troponin today is elevated at 3303. The patient denies chest pain, palpitations, orthopnea. BNP also was elevated. No dysuria or urinary frequency. PAST MEDICAL HISTORY: * Diabetes mellitus. * Hypertension. * Dyslipidemia. * Dementia. * TIA. * Staphylococcal epidermidis bacteremia. PAST SURGICAL HISTORY: * Cardiac catheterization. * Lumbar spine surgery. * Aortic valve replacement. ALLERGIES: No known drug allergies. CURRENT MEDICATIONS: Reviewed. SOCIAL HISTORY: Lives with . No alcohol, tobacco, or illicit drug use. FAMILY HISTORY: Positive for diabetes mellitus. REVIEW OF SYSTEMS: CONSTITUTIONAL: Positive for fevers, chills. No weight loss or night sweat. EYES: No eye pain. No photophobia or diplopia. HENT: No sore throat. No rhinorrhea or earache. NECK: No neck pain or neck swelling. RESPIRATORY: Denied cough, hemoptysis, or pleuritic pain. CARDIOVASCULAR: No chest pain, no palpitation or orthopnea. GASTROINTESTINAL: Denies nausea, vomiting, abdominal pain. GENITOURINARY: No dysuria, urgency, or urinary frequency. CENTRAL NERVOUS SYSTEM: No headache, dyspnea, or slurred speech. PSYCHIATRY: No depression, no suicidal ideation. MUSCULOSKELETAL: No joint pain, no joint swelling. PHYSICAL EXAMINATION: GENERAL: Elderly male, awake. VITAL SIGNS: Temperature 97.9, pulse 77, respiratory rate 18, BP 116/53. EYES: No icterus. Pupils equal and reactive. HENT: No oral thrush seen. Moist oral mucosa. NECK: Supple. No JVD or thyromegaly. LUNGS: Good air entry. No rales, no rhonchi. CARDIOVASCULAR: S1, S2, regular. No murmur heard. ABDOMEN: Obese, soft, nontender. Bowel sound is present. CENTRAL NERVOUS SYSTEM: Awake, alert, oriented x 3. No focal deficit. SKIN: No rashes, no itchiness. LYMPHATIC: No peripheral lymphadenopathy. BACK: No deformity, no pressure ulcer. LABORATORY DATA: Troponin 3303. Sodium 135, potassium 4.0, BUN 15, creatinine 0.9. WBC 15.4, hemoglobin 9.0, platelets 54,000. Influenza antigen negative. Blood culture pending. ASSESSMENT: A 74-year-old male presenting with fever, chills. CURRENT PROBLEMS: Include: * Sepsis. * Diabetes mellitus. * NSTEMI. * Thrombocytopenia. * Hypertension. * Debility. PLAN: * Obtain rickettsial serology. * Start the patient on doxycycline. * Follow up 2D echocardiogram report. * Follow up cultures. * Continue antihypertensive. * Discontinue antidiabetic. * Continue nutritional support. * Monitor electrolytes and correct as needed. Thank you for allowing me to participate in the care of this patient. TID: [id number] RECEIPT: [id number]
--- NOTE | 2024-11-18 18:13 | EKG ---
[facility] Test Date: 2024-11-18 Test Time: 03:29:15 Pat Name: SHANDA SALAS Department: [facility] Room: 419 1 Gender: M Bag Patcher: AMANDA : 1950 Requested By: DENISE CROWE Order Number: [id number] Reading MD: Krishan Diaz Measurements Intervals [place] Rate: 70 P: -3 DC: 232 QRS: -39 QRSD: 154 T: 80 QT: 472 QTc: 509 Interpretive Statements Sinus rhythm with 1st degree AV block Left axis deviation Left bundle branch block Compared to ECG 11/17/2024 20:06:26 First degree AV block now present Left-axis deviation now present Intraventricular conduction delay no longer present ST (T wave) deviation no longer present Electronically Signed On 11-19-2024 11:04:25 CDT by Krishan Diaz Please click the below link to view image of tracing.
[2024-11-18] MEDS: GABAPENTIN 300 MG CAPSULE PO SCH (20:12)
--- NOTE | 2024-11-18 20:15 | NUR ---
MEDS PT'S TEMPERATURE =100.2 DEGREES AND CLAIMS TO HAVE BODY ACHES. SHIFT ASSESSMENT DONE, PLEASE REFER TO CHART. REMOVED EXTRA BLANKETS. KEPT ROOM COOL. TYLENOL GIVEN FOR FEVER AND PAIN. DUE MEDS ADMINISTERED, TOLERATED WELL. KEPT RESTED AND COMFORTABLE IN BED. CALL LIGHT WITHIN REACH. SPOUSE AT BEDSIDE. WILL RE-ASSESS PT.
[2024-11-18] MEDS: BRIMONIDINE TIMOLOL OP SCH (20:18)
[2024-11-18] MEDS: VANCOMYCIN 1.25 GM/250 ML BAG 250 ML IV SCH (21:13)
[2024-11-19] VITALS (8 sets, daily range): BP systolic 119–159; BP diastolic 55–77; PULSE 66–101; RESP 17–18; TEMP 98.2–99.2; O2SAT 97
--- NOTE | 2024-11-19 05:41 | NUR ---
ROUNDS PT HAD SLEPT AT INTERVALS DURING THE SHIFT. NO DISTRESS NOTED. NO CONCERNS VERBALIZED. KEPT COMFORTABLE AND WARM. CALL LIGHT WITHIN REACH. SPOUSE ASLEEP AT BEDSIDE.
[2024-11-19] MEDS: ASPIRIN 81 MG EC TAB PO SCH (08:28)
--- NOTE | 2024-11-19 09:06 | HMCSR ---
APPROVED REPORT EXAM: Two-dimensional and M-mode echocardiogram with Doppler and color Doppler. Study Details: Diabghulam M , HLD INDICATION ICD: VA 2D Dimensions RVDd3.8 cmLVEF(%)67.1 (>50%)LVED Vol(simp.)143.0 mL IVSd0.5 (0.7-1.1cm)FS(%)38 %LVES Vol(simp.)76.9 mL LVDd5.4 (3.8-5.6cm)LA (2D)3.5 (1.6-4.0cm)LVEF(%, simp.)46 % PWd0.4 (0.7-1.1cm)Ao Root(2D)3.2 (2.0-3.7cm)LA ESV INDEX (BP)38.97 mL/m2 IVSs1.2 cmLVOT diam2.0 (1.8-2.4cm) LVDs3.4 (2.5-4.0cm) PWs1.4 cm Deformation Strain Apical 4-15.1 % Apical 2-12.5 % Apical 3-13.1 % Global Strain-13.6 % M-Mode Dimensions EPSS1.2 cm LA (MM)3.5 (1.6-4.0cm) Ao Root(MM)3.0 (2.0-3.7cm) Aortic Valve AoV Vmax3.2 m/So Peak GR40.8 mmHgLVOT Vmax1.3 m/s AoV VTI0.6 mAo Mean GR23.4 mmHgLVOT VTI0.25 m CARLOS (VMAX)1.28 cm2AVA (VTI) 1.3 cm2 Mitral Valve MV E Vmax97.0 cm/sP 1/2 T62 ms MV A Vmax1.3 cm/sMVA (PHT)3.6 cm2 E/A ratio74.6 TDI E/E' Ltosas98.6E/E' Aywkdad73.0 Medial E' Peak V4.30 cm/sLateral E' Peak V6.45 cm/s Pulmonary Valve PV Vmax1.1 m/sPV VTI0.18 mPV Mean GR2.8 mmHg PV Peak GR5.1 mmHg Tricuspid Valve TR Vmax2.8 m/sRAP (EST) 3 ijRuYCMQ53.2 mmHg TR Peak GR32.2 mmHg Left Ventricle The left ventricle structure and function is normal. There is normal LV segmental wall motion. Mild c oncentric left ventricular hypertrophy. LVEF is 55-60% with normal wall motion (volume measurements m karyn by final operations technician are inaccurate). Stage I diastolic dysfunction with elevated mean LV filling pressu re. Right Ventricle The right ventricle is normal size. Right ventricular systolic function is moderately reduced. Atria The left atrium size is mildly dilated. The right atrium size is normal. Aortic Valve Bioprosthetic aortic valve is present, probably a TAVR. Peak/Mean gradient 41/23 mmHg. Small perivalv ular leak. AV Dimensionless Index is 1.42 cm Mitral Valve Moderate posterior mitral annular calcification present. Mitral regurgitation is mild. There is no mi tral valve stenosis. Tricuspid Valve Tricuspid valve is not well visualized. Trace tricuspid regurgitation. Pulmonic Valve The pulmonary valve is normal in structure and function. There is no pulmonic valvular regurgitation. Great Vessels The aortic root is normal in size. The ascending aorta is normal in size. The IVC is normal in size a nd collapses >50% with inspiration. Pericardium No pericardial effusion. Conclusion LVEF is 55-60% with normal wall motion (volume measurements made by final operations technician are inaccurate). Stage I diastolic dysfunction with elevated mean LV filling pressure. The left atrium size is mildly dilated. Bioprosthetic aortic valve is present, probably a TAVR. Peak/Mean gradient 41/23 mmHg. Small perivalvular leak. Mitral regurgitation is mild.
--- NOTE | 2024-11-19 09:45 | PN ---
[facility] CARDIOLOGY PROGRESS NOTE Date Patient Seen: Nov 19, 2024 Time of Visit: 09:38 Interval History: This is a 74-year-old [place] male with a past medical history of severe aortic stenosis status post minimally invasive aortic valve replacement with an extra-large Cristhian [place] bioprosthetic aortic valve 09/04/2016, essentially normal coronary arteries by prior cardiac catheterization 08/19/2016, hyperlipidemia, hypertension, type 2 diabetes mellitus who was admitted for management of possible recurrent sepsis. He presented with generalized body weakness, fever and diarrhea onset 48 hours prior to admission. He had been managed at [facility] recently for bacteremia and was discharge one-week ago, his reporting that he had recurrent fevers throughout the week since discharge. (he was admitted here 10/05/2024 through 10/15/2024 with bacteremia and a MYKE on 10/09/2024 demonstrated no evidence of valvular vegetation). On admission he did have a temperature of 101. The patient did have evidence of elevated troponin with admission troponin of 350, rising to 3303 on 11/18/2024 and trending down. Blood cultures have grown Gram-positive cocci in clusters and organism is currently pending. He underwent a 2D echocardiogram on 11/18/2024 demonstrated normal LVEF of 55- 60%, mild concentric LVH and stage I diastolic dysfunction. The bioprosthetic aortic valve was noted with peak aortic valve gradient of 41 mmHg, mean aortic valve gradient of 23 mmHg and dimensionless index of 1.42 and small perivalvular leak. He offers no orthopnea, PND, chest pain or other cardiac symptoms. He reports he still had some diarrhea today. T-max last night was 100.2. Physical Examination: GENERAL: No acute distress. HEAD: Normal with no signs of head trauma. EYES: PERRLA, EOMI, conjunctiva and sclera normal. NECK: Supple without JVD. There is no tenderness, lymphadenopathy, or masses. No thyromegaly. Normal carotid upstrokes without bruits. LUNGS: Clear breath sounds bilaterally. No wheezes, or rhonchi. HEART: Normal rate and rhythm. Normal S1 and S2 there is a 2/6 early peaking systolic ejection murmur louder at the left midsternal border. VASC: Peripheral pulses +2 bilaterally. EXT: No clubbing, cyanosis or edema. NEURO: Awake, alert, and oriented x3. No focal neurological deficits noted. Laboratory: Hematology Labs: Test 11/18/24 02:14 11/17/24 20:11 Range/Units White Blood Count 15.4 H 4.8-10.8 K/uL Red Blood Count 2.92 L 4.50-6.20 MIL/uL Hemoglobin 9.0 L 14.0-18.0 g/dL Hematocrit 27.6 L 42-54 % Mean Corpuscular Volume 94.5 79-99 fL Mean Corpuscular Hemoglobin 30.8 27.0-33.0 pg Mean Corpuscular Hemoglobin Concent 32.6 32.0-36.0 g/dL Red Cell Distribution Width 14.5 11.0-15.5 % Platelet Count 54 L 130-400 K/uL Mean Platelet Volume 11.1 H 7.5-10.5 fL Immature Granulocyte % (Auto) 0.6 0-1 % Neutrophils (%) (Auto) 87.2 H 40.0-77.0 % Lymphocytes (%) (Auto) 6.8 L 21.0-51.0 % Monocytes (%) (Auto) 5.0 3.0-13.0 % Eosinophils (%) (Auto) 0.2 0.0-8.0 % Basophils (%) (Auto) 0.2 0.0-5.0 % Neutrophils # (Auto) 13.4 H 1.8-7.7 K/uL Lymphocytes # (Auto) 1.1 1.0-4.8 K/uL Monocytes # (Auto) 0.8 0.1-1.0 K/uL Eosinophils # (Auto) 0.03 0.00-0.70 K/uL Basophils # (Auto) 0.03 0.00-0.20 K/uL Absolute Immature Granulocyte (auto 0.09 0-1 K/uL Nucleated Red Blood Cells 0.0 0.0-0.19 % White Cell Morphology Comment See comments Platelet Morphology Comment DECREASED Chemistry Labs: Test 11/19/24 05:25 11/18/24 14:21 11/18/24 02:14 11/17/24 20:11 Range/Units Whole Blood Glucose 144 H 70-110 MG/DL Troponin I High Sensitivity 1777 *H 4-75 ng/L Sodium Level 135 L 136-145 mmol/L Potassium Level 4.0 3.5-5.1 mmol/L Chloride Level 103 101-111 mmol/L Carbon Dioxide Level 27 21-32 mmol/L Blood Urea Nitrogen 16 7-18 mg/dL Creatinine 0.9 0.5-1.3 mg/dL Glomerular Filtration Rate Calc 91 >90 mL/min Random Glucose 164 H 70-105 mg/dL Lactic Acid Level 0.8 0.8-2.5 mmol/L Total Calcium 8.2 L 8.5-10.1 mg/dL Phosphorus Level 3.0 2.5-4.9 mg/dL Magnesium Level 2.00 1.80-2.40 mg/dL Total Creatine Kinase 106 21-232 U/L Hemoglobin A1c 8.1 H 4.0-6.0 % Estimated Average Glucose (eAG) 186 H 70-126 mg/dL B-Type Natriuretic Peptide 205 H 0-100 pg/mL Procalcitonin 0.40 0.05-0.5 ng/mL Diagnostics / Radiology: 2D echocardiogram 11/18/2024: Conclusion LVEF is 55-60% with normal wall motion (volume measurements made by certified appliance service technician are inaccurate). Stage I diastolic dysfunction with elevated mean LV filling pressure. The left atrium size is mildly dilated. Bioprosthetic aortic valve is present, probably a TAVR. Peak/Mean gradient 41/23 mmHg. Small perivalvular leak. Mitral regurgitation is mild. Impression and Plan: Sepsis with Gram-positive cocci in clusters noted on blood cultures 11/17/2024: Diarrhea: Concern for prosthetic valve SBE: -obtain repeat blood cultures today -no evidence of valvular vegetations noted on 2D echocardiogram 11/18/2024 -proceed with transesophageal echo tomorrow morning -continue antibiotic therapy Type [address] segment elevation IN, in the setting of sepsis, with troponin rising to 3303: Normal coronary arteries by prior cardiac catheterization 2017: Normal LVEF with an LVEF of 55-60% and normal wall motion on 2D echocardiogram 11/18/2024: -continue antiplatelet therapy and statin therapy Severe aortic stenosis status post minimally invasive aortic valve replacement w ith an extra-large Cristhian [place] bioprosthetic aortic valve 09/04/2016: -normal functioning bioprosthetic aortic valve by 2D echocardiogram 11/18/2024 Comorbidities: C-spine myelomalacia Dementia MYKE 10/09/2024 demonstrated an LVEF of 45-50% and no valvular vegetations Hypertension Hyperlipidemia Type 2 diabetes mellitus PHYSICIAN ATTESTATION OF PHYSICIAN CYBER DEFENSE ANALYST DOCUMENTATION: I attest that I was physically present for the candelario portions of the service and evaluated the patient with the Physician Shoe Repair Cobbler, and I reviewed and discussed the case with the Physician Shoe Repair Cobbler and made modifications to the Physician Shoe Repair Cobbler's findings and plans of care as documented above MJ AGUILERA Nov 19, 2024 09:45 JACOB FOLEY MD Nov 19, 2024 15:09
--- NOTE | 2024-11-19 10:20 | NUR ---
PATIENT TAKEN DOWN FOR SURGERY. NO SIGNS OF DISTRESS NOTED. WILL SET UP ROOM FOR POST OP CARE. Addendum: 11/19/24 at 1153 by MARIE BELTRAN LVN LVN COMPUTER FROZE. STARLA ORTEGA
--- NOTE | 2024-11-19 11:29 | PN ---
[facility] PROGRESS NOTE Date of Service: Nov 19, 2024 Time of Service: 11:23 SUBJECTIVE: [ ] Mr. Bennett is a 74-year-old male that was seen and examined today on 11/17/2024. Patient is a poor historian and personal health due to past medical history of dementia. Patient's , Erma Thomas is at bedside. Patient says that patient came to the emergency department with a chief complaint of weakness. Onset was today at 5:00 p.m.. Location is to bilateral lower extremities. Duration is constant. Character is described as, "he was just sitting in the sofa all day and sleeping more than usual. There was no alleviating factors. There was no aggravating factors. Spouse reports associated fever and chills. 11/18/24 patient was seen earlier patient is lying in bed with family at bedside. Patient was discharged from [facility] for long-term IV antibiotics discharged home with oral antibiotics we will have ID on board. Patient denied chest pain or shortness for breath. 11/19/24 patient was seen patient denied chest pain shortness a breath. He complaints being constipated we will provide as needed lactulose. Patient waiting for CT lumbar spine examined to be done most likely on Wednesday. We will have Physical therapy work with patient as well. All questions and answers addressed appropriately. REVIEW OF SYSTEMS CONSTITUTIONAL: Denies fevers, chills, or night sweats. No unintentional weight loss reported. NEUROLOGICAL: Denies headache, amaurosis fugax, motor weakness, sensory deficit, vertigo/spinning sensation, gait abnormalities, or tremors. ENT: No hearing loss, otalgia, otorrhea, rhinitis, rhinorrhea, hoarseness, or sore throat. CARDIOVASCULAR: Denies any exertional angina, dyspnea on exertion, orthopnea, paroxysmal nocturnal dyspnea, palpitations, life-threatening arrhythmias, claudication. PULMONARY: Denies any shortness of breath, cough, phlegm/sputum, hemoptysis, pleuritic chest pain. SLEEP: Denies morning headaches, daytime somnolence or napping. Denies difficul ty falling asleep, staying asleep, waking from sleep. Denies knowledge of snoring. GASTROINTESTINAL: Denies any type of dysphagia to either liquids or solids. Denies nausea, vomiting, pyrosis, early satiety, abdominal pain, diarrhea, constipation, or changes in stool consistency or caliber. Denies coffee-ground emesis, hematemesis, hematochezia, or melanotic stools. GENITOURINARY: Denies frequency, urgency, nocturia, hematuria or incontinence (Storage/Irritative symptoms.) Low urinary stream, straining to void, urinary intermittency or hesitancy, splitting of the voiding stream, terminal dribbling. ENDOCRINOLOGIC: Denies polyuria, polydipsia, polyphagia or heat/cold intole rances. HEMATOLOGIC: Denies thrombophilia/previous clots, or coagulopathy/bleeding disorders. ONCOLOGIC: Denies personal history of malignancy. DERMATOLOGIC: Denies rashes or pruritus. PSYCHIATRIC: Denies any suicidal or homicidal ideation. Denies hallucinations. PHYSICAL EXAM GENERAL APPEARANCE: The patient is awake, alert, and oriented, in no acute cardiopulmonary distress. NEUROLOGICAL: Cranial nerves II-XII grossly intact. Motor is 5/5 in bilateral upper and lower extremities proximal to distal. No sensory deficits. HEENT: Face is symmetric. Pupils are equal and reactive. Extraocular movements are intact. NECK: Supple. No JVD. No thyromegaly. No submental, submandibular, pre- /postauricular, occipital or supraclavicular lymphadenopathy. CHEST: Normal chest expansion. No Telemetry. LUNGS: Absence of any rales, rhonchi or any wheezing. CARDIOVASCULAR: Regular. S1 and S2 normal. No appreciable rubs, murmurs or gallops. ABDOMEN: Soft, nontender, and nondistended. There is no rebound, voluntary guarding, or rigidity. : Deferred. No Emmanuel. EXTREMITIES: Non-edematous and not cyanotic. No clubbing. Good capillary refill. SKIN: No skin breakdown. Vital Signs (last 8hr) Date Time Temp Pulse Resp B/P (MAP) Pulse Ox O2 Delivery O2 Flow Rate FiO2 11/19/24 08:00 97 Room Air* 0 21 11/19/24 08:00 98.6 95 18 139/64 97 Room Air 11/19/24 04:00 99.1 94 17 159/71 96 Room Air 21 LABS: Laboratory: Test 11/19/24 05:25 11/18/24 15:03 11/18/24 14:21 11/18/24 02:25 Range/Units Whole Blood Glucose 144 H 70-110 MG/DL Urine Color YELLOW YELLOW Urine Appearance CLEAR CLEAR Urine pH 6.0 5.0-8.0 Urine Specific [place] 1.034 H 1.001-1.031 Urine Protein 20 H NEGATIVE mg/dL Urine Glucose (UA) 300 H NEGATIVE mg/dL Urine Ketones 20 H NEGATIVE mg/dL Urine Occult Blood NEGATIVE NEGATIVE Urine Nitrate NEGATIVE NEGATIVE Urine Bilirubin NEGATIVE NEGATIVE mg/dL Urine Urobilinogen 0.2 0.2-1.0 mg/dL Urine Leukocyte Esterase NEGATIVE NEGATIVE Rojelio/uL Urine RBC 0-1 0-1 /HPF Urine WBC 2-5 H 0-1 /HPF Urine Squamous Epithelial Cells RARE 0-2 /HPF Urine Bacteria RARE None Seen /HPF Troponin I High Sensitivity 1777 *H 4-75 ng/L Group A Streptococcus Rapid negative NEGATIVE Test 11/18/24 02:14 11/17/24 20:14 11/17/24 20:11 Range/Units White Blood Count 15.4 H 4.8-10.8 K/uL Red Blood Count 2.92 L 4.50-6.20 MIL/uL Hemoglobin 9.0 L 14.0-18.0 g/dL Hematocrit 27.6 L 42-54 % Mean Corpuscular Volume 94.5 79-99 fL Mean Corpuscular Hemoglobin 30.8 27.0-33.0 pg Mean Corpuscular Hemoglobin Concent 32.6 32.0-36.0 g/dL Red Cell Distribution Width 14.5 11.0-15.5 % Platelet Count 54 L 130-400 K/uL Mean Platelet Volume 11.1 H 7.5-10.5 fL Immature Granulocyte % (Auto) 0.6 0-1 % Neutrophils (%) (Auto) 87.2 H 40.0-77.0 % Lymphocytes (%) (Auto) 6.8 L 21.0-51.0 % Monocytes (%) (Auto) 5.0 3.0-13.0 % Eosinophils (%) (Auto) 0.2 0.0-8.0 % Basophils (%) (Auto) 0.2 0.0-5.0 % Neutrophils # (Auto) 13.4 H 1.8-7.7 K/uL Lymphocytes # (Auto) 1.1 1.0-4.8 K/uL Monocytes # (Auto) 0.8 0.1-1.0 K/uL Eosinophils # (Auto) 0.03 0.00-0.70 K/uL Basophils # (Auto) 0.03 0.00-0.20 K/uL Absolute Immature Granulocyte (auto 0.09 0-1 K/uL Nucleated Red Blood Cells 0.0 0.0-0.19 % Sodium Level 135 L 136-145 mmol/L Potassium Level 4.0 3.5-5.1 mmol/L Chloride Level 103 101-111 mmol/L Carbon Dioxide Level 27 21-32 mmol/L Blood Urea Nitrogen 16 7-18 mg/dL Creatinine 0.9 0.5-1.3 mg/dL Glomerular Filtration Rate Calc 91 >90 mL/min Random Glucose 164 H 70-105 mg/dL Lactic Acid Level 0.8 0.8-2.5 mmol/L Total Calcium 8.2 L 8.5-10.1 mg/dL Phosphorus Level 3.0 2.5-4.9 mg/dL Magnesium Level 2.00 1.80-2.40 mg/dL Total Creatine Kinase 106 21-232 U/L Influenza Type A Antigen Negative For Type A NEGATIVE Influenza Type B Antigen Negative For Type B NEGATIVE SARS-CoV-2, RNA, NAAT NEGATIVE SARS CoV-2 NEGATIVE White Cell Morphology Comment See comments Platelet Morphology Comment DECREASED Hemoglobin A1c 8.1 H 4.0-6.0 % Estimated Average Glucose (eAG) 186 H 70-126 mg/dL B-Type Natriuretic Peptide 205 H 0-100 pg/mL Procalcitonin 0.40 0.05-0.5 ng/mL Current Medications Medications (Trade) Dose Ordered Sig/Ann Marie Route PRN Reason Start Time Stop Time Status Last Admin Dose Admin Acetaminophen (TYLenol 325MG TAB) 650 mg Q6H PRN PO TEMPERATURE GREATER THAN 101.5 11/17/24 22:00 12/17/24 21:59 11/18/24 20:13 650 MG Aspirin (Aspirin 81mg Ec Tab) 81 mg DAILY PO 11/18/24 09:00 11/18/24 14:00 DC 11/18/24 09:48 81 MG Aspirin (Aspirin 81mg Ec Tab) 81 mg DAILY PO 11/19/24 09:00 12/19/24 08:59 11/19/24 08:28 81 MG Atorvastatin Calcium (LIPItor 40MG) 40 mg HS PO 11/18/24 21:00 12/18/24 20:59 11/18/24 20:11 40 MG Donepezil HCl (ARIcept 5MG TAB) 5 mg HS PO 11/18/24 21:00 12/18/24 20:59 11/18/24 20:12 5 MG Doxycycline Hyclate (Doxycycline Hyclate) 100 mg Q12H PO 11/18/24 12:00 11/28/24 11:59 11/18/24 23:10 100 MG Enoxaparin Sodium (Lovenox) 40 mg DAILY SQ 11/18/24 09:00 11/18/24 01:27 DC Famotidine (Pepcid 20mg Tab) 20 mg DAILY PO 11/18/24 09:00 12/18/24 08:59 11/19/24 08:28 20 MG Gabapentin (NEURontin 300 MG CAP) 300 mg BID PO 11/18/24 21:00 12/18/24 20:59 11/19/24 08:28 300 MG Home Med (Home Medication) BID OP 11/18/24 21:00 12/18/24 20:59 Hydralazine HCl (APRESOLine 20MG INJ) 10 mg Q6H PRN IV For:SBP above 160;DBP above 90 11/17/24 22:00 12/17/24 21:59 Insulin Human Regular (humuLIN R 100 UNIT/ML 3ML) INSULIN SLIDING SCAL... ACHS SQ 11/18/24 07:30 12/18/24 07:29 11/18/24 16:30 3 UNIT Magnesium Sulfate 50 ml @ 0 mls/hr PROTOCOL PRN IV RX MONITORING LEVELS & DOSING 11/17/24 23:00 11/18/24 01:30 DC 11/18/24 00:22 25 MLS/HR Magnesium Sulfate 50 ml @ 0 mls/hr PROTOCOL PRN IV h 11/18/24 01:30 12/18/24 01:29 Morphine Sulfate (morPHINE 2MG SYG) 2 mg Q4H PRN IVP SEVERE PAIN (7-10) 11/17/24 22:00 11/24/24 21:59 Nitroglycerin (Nitrostat) 0.4 mg PROTOCOL PRN SL CHEST PAIN 11/17/24 22:00 12/17/24 21:59 Ondansetron HCl (zoFRAN 4MG INJ) 4 mg Q6H PRN IV NAUSEA/VOMITING 11/17/24 22:00 12/17/24 21:59 11/18/24 20:20 4 MG Piperacillin Sod/ Tazobactam Sod (Zosyn 3.375gm+NS 50ml) 3.375 gm Q8H IV 11/18/24 05:00 11/28/24 04:59 11/19/24 04:20 3.375 GM Potassium Chloride 100 ml @ 100 mls/hr AD PRN IV POTASSIUM PROTOCOL 11/18/24 01:30 12/18/24 01:29 Potassium Chloride (K-Dur/Klor-Con 20meq) 20 meq AD PRN PO POTASSIUM PROTOCOL 11/18/24 01:30 12/18/24 01:29 Potassium Chloride (KCl 10% Elixir 20meq/15ml) 20 meq AD PRN PO POTASSIUM PROTOCOL 11/18/24 01:30 12/18/24 01:29 Vancomycin HCl 250 ml @ 125 mls/hr Q24H IV 11/18/24 22:00 11/28/24 21:59 11/18/24 21:13 125 MLS/HR Vancomycin HCl (Vancomycin Protocol) 1 each AD IV 11/17/24 21:30 12/01/24 21:29 DIAGNOSTICS / RADIOLOGY: [ ] ASSESSMENT: bacteremia POA Sepsis,( TEMPERATURE 101.1 HEART RATE 104 LACTIC ACID 4.4 WBCS 140 POA Failed outpatient treatment. Elevated troponin most likely MT type II: in the setting of sepsis POA acute on chronic heart failure with EF 45-50% with exacerbation BNP elevated POa Thrombocytopenia, POA MULTIFOCAL ANEMIA HYPOKALEMIA Chronic back pain POA Uncontrolled Diabetes mellitius type2, POA Severe protein calorie malnutrition with muscle atrophy POA Dementia Hyperlipidemia CAD Hypertension] PLAN: [ ] Admit: Medical-surgical floor condition: Guarded Status: Full code IVF: [facility] infectious disease Antibiotics: Vancomycin IV, doxycycline IV. And Zosyn Microbiology Blood cultures positive cluster pending final Labs cbc, cmp, mag+ Replace electrolytes as needed as per protocol to keep potassium above 4.0 magnesium 2.0. Imaging echo LV EF 55-60% stage I diastolic dysfunction Pending CAT scan lumbar spine and thorax is my hand without contrast given to patient complaints of low back pain Pain management: Morphine as needed Supportive measures: DVT ppx, GI ppx all questions answered Supervising MD: Dr. Dunn P c/d This document was generated in part using voice recognition software, occasional wrong word or sound alike substitutions may have occurred due to the inherent limitations of voice recognition software. Read the chart carefully and recognize using context, where the substitutions have occurred. Although every effort was made to edit the content, softlines supervisor and typing errors may occur ATTESTATION BY PHYSICIAN I have seen and examined the patient. I reviewed the documentation, medical decision making, and treatment plan as noted by the mid-level provider above. I agree with the findings and plan of care. Brittany Dunn MD, ELIZABETH NP Nov 19, 2024 11:29
[2024-11-19 11:31] LABS: NUCLEATED RED BLOOD CELLS 0.0 % (0.0-0.19); PLATELET COUNT (AUTO) 69.0 K/uL (130-400); RED BLOOD CELL COUNT(AUTO) 2.95 MIL/uL (4.50-6.20); RED CELL DISTRIBUTION WIDTH 14.6 % (11.0-15.5); WHITE BLOOD COUNT (AUTO) 15.8 K/uL (4.8-10.8)
[2024-11-19 11:40] LABS: CREATININE 0.8 mg/dL (0.5-1.3); GLOMERULAR FILTR. RATE CALC 94.0 mL/min (>90); GLUCOSE,RANDOM 144.0 mg/dL (70-105); SODIUM SERUM 137.0 mmol/L (136-145); UREA NITROGEN, BLOOD 10.0 mg/dL (7-18)
[2024-11-19 11:44] LABS: ASPARTATE AMINOTRANSFERASE 20.0 U/L (10-37); TOTAL PROTEIN, SERUM 5.8 g/dL (6.0-8.3)
--- NOTE | 2024-11-19 11:53 | NUR ---
PATIENT TAKEN DOWN TO CT.
[2024-11-19] MEDS ORDERED: IOHEXOL-350 75 ML VIAL IV ONE (11:55)
[2024-11-19] MEDS: MAGNESIUM 2GM PREMIX 50ML 50 ML IV PRN (12:48)
[2024-11-19] MEDS: LACTULOSE 20 GM/30 ML UDCUP PO ONE (13:41)
--- NOTE | 2024-11-19 14:00 | NUR ---
BEDSIDE SWALLOW EVAL COMPLETED. No s/s of aspiration. Recommend minced/moist solids, thin liquids, and whole meds with liquids. Compensatory strategies 1. Sit upright 2. slow oral intake 3. Alt between solids and liquids PRODUCT APPLICATIONS ENGINEER reviewed results and recommendations with patient and nurse Nori. PRODUCT APPLICATIONS ENGINEER educated patient on risk and consequences of aspiration. Speech Therapy not warranted at this time. All questions answered. Addendum: 11/19/24 at 1833 by WILLIS KING Amended: Links added.
--- NOTE | 2024-11-19 14:05 | PN ---
INFECTIOUS DISEASE PROGRESS NOTE Date of Service: Nov 19, 2024 SUBJECTIVE: This 74 year old male patient is being seen today at bedside. Awake, alert, laying in bed, in no distress. Patient last temperature of 98.4 noted. No chest pain or shortness of breath. Patient denies palpitation. Blood culture is positive for gram positive cocci. He continues on vancomycin, doxycycline and zosyn. Went over plan of care with at bedside. We continue to follow patient closely. PHYSICAL EXAM EYES: Anicteric. Pupils equal and reactive. HENT: No oral thrush seen, moist Oral mucosa NECK: Supple, no JVD or thyromegaly. LUNGS: Good air entry. No rales, no rhonchi. CARDIOVASCULAR: S1, S2 regular. No murmur heard. ABDOMEN: Soft, non tender, bowel sounds present, no organomegaly CENTRAL NERVOUS SYSTEM: Awake, alert, oriented x 3. No focal deficits. SKIN: No rashes, no swelling. LYMPHATICS: No peripheral lymphadenopathy MUSCULOSKELETAL: No joint swelling, erythema or tenderness. EXTREMITIES: No cyanosis or clubbing BACK: No deformity, no pressure ulcer. GENITOURINARY: No dysuria or hematuria Vital Sign (Last 12 Hours) 11/19/24 11/19/24 11/19/24 11/19/24 04:00 08:00 08:00 12:00 Temp 99.1 98.6 98.4 Pulse 94 95 101 Resp 17 18 18 B/P (MAP) 159/71 139/64 143/63 Pulse Ox 96 97 97 98 O2 Delivery Room Air Room Air Room Air* Room Air O2 Flow Rate 0 FiO2 21 21 Intake & Output (last 24hrs) 11/18/24 11/18/24 11/19/24 15:00 23:00 07:00 Intake Total 200.0 ml 480.0 ml Output Total 200 ml 190 ml 300 ml Balance -200 ml 10.0 ml 180.0 ml LABS: Laboratory: Test 11/19/24 13:20 11/19/24 10:08 11/18/24 15:03 11/18/24 14:21 Range/Units Whole Blood Glucose 226 #H 70-110 MG/DL White Blood Count 15.8 H 4.8-10.8 K/uL Red Blood Count 2.95 L 4.50-6.20 MIL/uL Hemoglobin 9.1 L 14.0-18.0 g/dL Hematocrit 27.8 L 42-54 % Mean Corpuscular Volume 94.2 79-99 fL Mean Corpuscular Hemoglobin 30.8 27.0-33.0 pg Mean Corpuscular Hemoglobin Concent 32.7 32.0-36.0 g/dL Red Cell Distribution Width 14.6 11.0-15.5 % Platelet Count 69 #L 130-400 K/uL Mean Platelet Volume 11.2 H 7.5-10.5 fL Nucleated Red Blood Cells 0.0 0.0-0.19 % Sodium Level 137 136-145 mmol/L Potassium Level 4.0 3.5-5.1 mmol/L Chloride Level 102 101-111 mmol/L Carbon Dioxide Level 24 21-32 mmol/L Blood Urea Nitrogen 10 7-18 mg/dL Creatinine 0.8 0.5-1.3 mg/dL Glomerular Filtration Rate Calc 94 >90 mL/min Random Glucose 144 H 70-105 mg/dL Total Calcium 8.1 L 8.5-10.1 mg/dL Magnesium Level 1.40 L 1.80-2.40 mg/dL Total Bilirubin 0.3 0.2-1.0 mg/dL Aspartate Amino Transf (AST/SGOT) 20 10-37 U/L Alanine Aminotransferase (ALT/SGPT) 11 L 12-78 U/L Alkaline Phosphatase 72 50-136 U/L Total Protein 5.8 L 6.0-8.3 g/dL Albumin 2.3 L 3.5-5.0 g/dL Urine Color YELLOW YELLOW Urine Appearance CLEAR CLEAR Urine pH 6.0 5.0-8.0 Urine Specific [place] 1.034 H 1.001-1.031 Urine Protein 20 H NEGATIVE mg/dL Urine Glucose (UA) 300 H NEGATIVE mg/dL Urine Ketones 20 H NEGATIVE mg/dL Urine Occult Blood NEGATIVE NEGATIVE Urine Nitrate NEGATIVE NEGATIVE Urine Bilirubin NEGATIVE NEGATIVE mg/dL Urine Urobilinogen 0.2 0.2-1.0 mg/dL Urine Leukocyte Esterase NEGATIVE NEGATIVE Rojelio/uL Urine RBC 0-1 0-1 /HPF Urine WBC 2-5 H 0-1 /HPF Urine Squamous Epithelial Cells RARE 0-2 /HPF Urine Bacteria RARE None Seen /HPF Troponin I High Sensitivity 1777 *H 4-75 ng/L Test 11/18/24 02:25 11/18/24 02:14 11/17/24 20:14 11/17/24 20:11 Range/Units Group A Streptococcus Rapid negative NEGATIVE Immature Granulocyte % (Auto) 0.6 0-1 % Neutrophils (%) (Auto) 87.2 H 40.0-77.0 % Lymphocytes (%) (Auto) 6.8 L 21.0-51.0 % Monocytes (%) (Auto) 5.0 3.0-13.0 % Eosinophils (%) (Auto) 0.2 0.0-8.0 % Basophils (%) (Auto) 0.2 0.0-5.0 % Neutrophils # (Auto) 13.4 H 1.8-7.7 K/uL Lymphocytes # (Auto) 1.1 1.0-4.8 K/uL Monocytes # (Auto) 0.8 0.1-1.0 K/uL Eosinophils # (Auto) 0.03 0.00-0.70 K/uL Basophils # (Auto) 0.03 0.00-0.20 K/uL Absolute Immature Granulocyte (auto 0.09 0-1 K/uL Lactic Acid Level 0.8 0.8-2.5 mmol/L Phosphorus Level 3.0 2.5-4.9 mg/dL Total Creatine Kinase 106 21-232 U/L Influenza Type A Antigen Negative For Type A NEGATIVE Influenza Type B Antigen Negative For Type B NEGATIVE SARS-CoV-2, RNA, NAAT NEGATIVE SARS CoV-2 NEGATIVE White Cell Morphology Comment See comments Platelet Morphology Comment DECREASED Hemoglobin A1c 8.1 H 4.0-6.0 % Estimated Average Glucose (eAG) 186 H 70-126 mg/dL B-Type Natriuretic Peptide 205 H 0-100 pg/mL Procalcitonin 0.40 0.05-0.5 ng/mL DIAGNOSTICS / RADIOLOGY: [ ] ASSESSMENT: * Sepsis. * Diabetes mellitus. * NSTEMI. * Thrombocytopenia. * Hypertension. * Debility. * Gram positive bacteremia PLAN: * Continue antibiotics * Follow up 2D echocardiogram report. * obtain MRI thoracic, lumbar spin with and without contrast * Continue antihypertensive. * continue antidiabetic. * Continue nutritional support. * Monitor electrolytes and correct as needed. This case has been discussed with my supervising physician Dr. Montoya. ALBA [employer] ASSOCIATE Nov 19, 2024 14:05
--- NOTE | 2024-11-19 20:15 | NUR ---
MEDS SHIFT ASSESSMENT DONE, PLEASE REFER TO CHART. DUE MEDS ADMINISTERED, TOLERATED WELL. INSTRUCTED TO BE NPO POST MN FOR MYKE IN AM. KEPT RESTED AND COMFORTABLE IN BED. CALL LIGHT WITHIN REACH. PT AND FAMILY VERBALIZES UNDERSTANDING.
[2024-11-20] VITALS (14 sets, daily range): BP systolic 12–148; BP diastolic 43–81; PULSE 75–101; RESP 16–18; TEMP 98.4–100.3; O2SAT 95
--- NOTE | 2024-11-20 05:26 | NUR ---
ROUNDS PT SLEPT AT INTERVALS DURING THE SHIFT. NO DISTRESS NOTED. NO CONCERNS VERBALIZED. KEPT NPO FOR PLANNED PROCEDURE TODAY. CALL LIGHT WITHIN REACH. FAMILY AT BEDSIDE. FOR MORE CARE.
[2024-11-20 05:52] LABS: IMMATURE GRANULOCYTE ABSOLUTE 0.10 K/uL (0-1); NUCLEATED RED BLOOD CELLS 0.0 % (0.0-0.19); PLATELET COUNT (AUTO) 78 K/uL (130-400); RED BLOOD CELL COUNT(AUTO) 3.09 MIL/uL (4.50-6.20); RED CELL DISTRIBUTION WIDTH 14.6 % (11.0-15.5); WHITE BLOOD COUNT (AUTO) 16.1 K/uL (4.8-10.8)
[2024-11-20 06:03] LABS: ASPARTATE AMINOTRANSFERASE 17.0 U/L (10-37); CREATININE 1.0 mg/dL (0.5-1.3); GLOMERULAR FILTR. RATE CALC 80.0 mL/min (>90); GLUCOSE,RANDOM 146.0 mg/dL (70-105); SODIUM SERUM 132.0 mmol/L (136-145); TOTAL PROTEIN, SERUM 5.8 g/dL (6.0-8.3); UREA NITROGEN, BLOOD 7.0 mg/dL (7-18)
--- NOTE | 2024-11-20 08:41 | PN ---
[facility] CARDIOLOGY PROGRESS NOTE Date Patient Seen: Nov 20, 2024 Time of Visit: 08:28 Interval History: This is a 74-year-old [place] male with a past medical history of severe aortic stenosis status post minimally invasive aortic valve replacement with an extra-large Cristhian Jc bioprosthetic aortic valve 09/04/2016, essentially normal coronary arteries by prior cardiac catheterization 08/19/2016, hyperlipidemia, hypertension, type 2 diabetes mellitus who was admitted for management of possible recurrent sepsis. He presented with generalized body weakness, fever and diarrhea onset 48 hours prior to admission. He had been managed at [facility] recently for bacteremia and was discharge one-week ago, his reporting that he had recurrent fevers throughout the week since discharge. (he was admitted here 10/05/2024 through 10/15/2024 with bacteremia and a MYKE on 10/09/2024 demonstrated no evidence of valvular vegetation). On admission he did have a temperature of 101. The patient did have evidence of elevated troponin with admission troponin of 350, rising to 3303 on 11/18/2024 and trending down. He underwent a 2D echocardiogram on 11/18/2024 demonstrated normal LVEF of 55- 60%, mild concentric LVH and stage I diastolic dysfunction. The bioprosthetic aortic valve was noted with peak aortic valve gradient of 41 mmHg, mean aortic valve gradient of 23 mmHg and dimensionless index of 1.42 and small perivalvular leak. Blood cultures have grown Gram-positive cocci in clusters and organism is currently pending. Previously a transesophageal echo 10/09/2024 demonstrated no evidence of valvular vegetation and a repeat transesophageal echo has been scheduled for this morning. He offers no orthopnea, PND, chest pain or other cardiac symptoms. Is resting comfortably flat in bed. T-max overnight was 100.3 this AM. Repeat blood cultures has been requested this morning x2 sets. White blood count this morning is 16.1 with 85% neutrophils. Physical Examination: GENERAL: No acute distress. HEAD: Normal with no signs of head trauma. EYES: PERRLA, EOMI, conjunctiva and sclera normal. NECK: Supple without JVD. There is no tenderness, lymphadenopathy, or masses. No thyromegaly. Normal carotid upstrokes without bruits. LUNGS: Clear breath sounds bilaterally. No wheezes, or rhonchi. HEART: Normal rate and rhythm. Normal S1 and S2 there is a 2/6 early peaking systolic ejection murmur louder at the left midsternal border. VASC: Peripheral pulses +2 bilaterally. EXT: No clubbing, cyanosis or edema. NEURO: Awake, alert, and oriented x3. No focal neurological deficits noted. Laboratory: Hematology Labs: Test 11/20/24 05:18 Range/Units White Blood Count 16.1 H 4.8-10.8 K/uL Red Blood Count 3.09 L 4.50-6.20 MIL/uL Hemoglobin 9.5 L 14.0-18.0 g/dL Hematocrit 28.9 L 42-54 % Mean Corpuscular Volume 93.5 79-99 fL Mean Corpuscular Hemoglobin 30.7 27.0-33.0 pg Mean Corpuscular Hemoglobin Concent 32.9 32.0-36.0 g/dL Red Cell Distribution Width 14.6 11.0-15.5 % Platelet Count 78 L 130-400 K/uL Mean Platelet Volume 10.7 H 7.5-10.5 fL Immature Granulocyte % (Auto) 0.6 0-1 % Neutrophils (%) (Auto) 84.6 H 40.0-77.0 % Lymphocytes (%) (Auto) 8.9 L 21.0-51.0 % Monocytes (%) (Auto) 5.0 3.0-13.0 % Eosinophils (%) (Auto) 0.7 0.0-8.0 % Basophils (%) (Auto) 0.2 0.0-5.0 % Neutrophils # (Auto) 13.6 H 1.8-7.7 K/uL Lymphocytes # (Auto) 1.4 1.0-4.8 K/uL Monocytes # (Auto) 0.8 0.1-1.0 K/uL Eosinophils # (Auto) 0.12 0.00-0.70 K/uL Basophils # (Auto) 0.03 0.00-0.20 K/uL Absolute Immature Granulocyte (auto 0.10 0-1 K/uL Nucleated Red Blood Cells 0.0 0.0-0.19 % Chemistry Labs: Test 11/20/24 05:18 11/20/24 05:10 11/18/24 14:21 Range/Units Sodium Level 132 L 136-145 mmol/L Potassium Level 3.7 3.5-5.1 mmol/L Chloride Level 100 L 101-111 mmol/L Carbon Dioxide Level 24 21-32 mmol/L Blood Urea Nitrogen 7 7-18 mg/dL Creatinine 1.0 0.5-1.3 mg/dL Glomerular Filtration Rate Calc 80 >90 mL/min Random Glucose 146 H 70-105 mg/dL Total Calcium 8.4 L 8.5-10.1 mg/dL Magnesium Level 1.50 L 1.80-2.40 mg/dL Total Bilirubin 0.5 # 0.2-1.0 mg/dL Aspartate Amino Transf (AST/SGOT) 17 10-37 U/L Alanine Aminotransferase (ALT/SGPT) 11 L 12-78 U/L Alkaline Phosphatase 64 50-136 U/L Total Protein 5.8 L 6.0-8.3 g/dL Albumin 2.2 L 3.5-5.0 g/dL Whole Blood Glucose 151 H 70-110 MG/DL Troponin I High Sensitivity 1777 *H 4-75 ng/L Diagnostics / Radiology: 2D echocardiogram 11/18/2024: Conclusion LVEF is 55-60% with normal wall motion (volume measurements made by microfilm technician are inaccurate). Stage I diastolic dysfunction with elevated mean LV filling pressure. The left atrium size is mildly dilated. Bioprosthetic aortic valve is present, probably a TAVR. Peak/Mean gradient 41/23 mmHg. Small perivalvular leak. Mitral regurgitation is mild. Impression and Plan: Sepsis with Gram-positive cocci in clusters noted on blood cultures 11/17/2024: Diarrhea: Presumptive prosthetic valve SBE: -obtain repeat blood cultures today and in 24 hours -no evidence of valvular vegetations noted on 2D echocardiogram 11/18/2024 -proceed with transesophageal echo tomorrow morning. The complications, risks, alternatives, benefits were discussed with the patient in detail and she understands and wishes to proceed. -continue antibiotic therapy Type [address] segment elevation ID, in the setting of sepsis, with troponin rising to 3303: Normal coronary arteries by prior cardiac catheterization 2017: Normal LVEF with an LVEF of 55-60% and normal wall motion on 2D echocardiogram 11/18/2024: -continue antiplatelet therapy and statin therapy Severe aortic stenosis status post minimally invasive aortic valve replacement with an extra-large Cristhian Jc bioprosthetic aortic valve 09/04/2016: -normal functioning bioprosthetic aortic valve by 2D echocardiogram 11/18/2024 Comorbidities: C-spine myelomalacia Dementia MYKE 10/09/2024 demonstrated an LVEF of 45-50% and no valvular vegetations Hypertension Hyperlipidemia Type 2 diabetes mellitus JACOB FOLEY MD Nov 20, 2024 08:41
--- NOTE | 2024-11-20 09:00 | NUR ---
MYKE PROCEDURE BEGUN. PATIENT SHOWING NO SIGNS OF DISTRESS. VITAL SIGNS IN RANGE EXCEPT FOR LOW GRADE TEMP. AWARE.
--- NOTE | 2024-11-20 09:52 | NUR ---
MYKE PROCEDURE ENDED. PATIENT TOLERATED PROCEDURE WELL. WILL MONITOR VITAL SIGNS. MACHINE ALREADY SET UP IN ROOM .
[2024-11-20] MEDS: MIDAZOLAM HCL 1 MG/ML 2ML VIAL IVP ONE (09:57)
[2024-11-20] MEDS: LIDOCAINE HCL 2% VISCOUS 15 ML UDCUP PO ONE (09:57)
[2024-11-20] MEDS: LIDOCAINE HCL 2% VISCOUS 15 ML UDCUP ONE (09:57)
--- NOTE | 2024-11-20 10:04 | PRN ---
Procedure Note TRANSESOPHAGEAL ECHOCARDIOGRAM INDICATION FOR PROCEDURE: Rule out cardioembolic source PROCEDURE: Transesophageal echo Culture sedation DATE OF PROCEDURE: 11/21/2023 [employer] BUSINESS ANALYST: Zackery Foley MD, [facility] PROCEDURE NOTE: After informed consent was obtained, and time-out procedure performed, the patient was sedated with a total of 4 mg of Versed and 100 mcg of Fentanyl. The patient was poorly cooperative but after adequate sedation the MYKE probe passed easily. There was no evidence of traumatic passage, bleeding, or intolerance of the procedure. Images were obtained in standard views. FINDINGS: Moderate concentric LVH. Hyperdynamic LV with LVEF of 65%. 0.4 x 0.8 cm linear mobile vegetation on the anterior mitral valve leaflet, consistent with SBE. Prosthetic aortic valve demonstrates thickened leaflets, but no evidence of perforation, deterioration, or mobile or oscillating vegetation. There was trace central-valvular aortic insufficiency only. There was no evidence of clear perivalvular abscess, or valve motion to suggest dehiscence. Tricuspid and pulmonic valves are structurally normal without vegetation. IMPRESSION: 0.4 x 0.8 cm linear mobile vegetation on the anterior mitral valve leaflet, consistent with SBE. Prosthetic aortic valve demonstrates thickened leaflets, but no evidence of perforation, deterioration, or mobile or oscillating vegetation. There was trace central-valvular aortic insufficiency only. There was no evidence of clear perivalvular abscess, or valve motion to suggest dehiscence. PLAN: Prolonged antibiotic therapy Repeat MYKE in 2-4 weeks ZACKERY FOLEY MD Nov 20, 2024 10:04
--- NOTE | 2024-11-20 11:34 | PN ---
INFECTIOUS DISEASE PROGRESS NOTE Date of Service: Nov 20, 2024 SUBJECTIVE: This 74 year old male patient was seen this morning. Awake, alert and oriented x3. A low grade fever of 100.2 this morning, nurse reports a 99.5 was later noted. Patient underwent a MYKE this morning, a 0.4 - 0.8 cm linear mobile vegestion on the anterior mitral valve leaflet noted. Patient at this time denies chest pain or shortness of breath. Patient remains on oxygen via nasal canula. Informed patient and family he may require emt intermediate antibiotics regiment, they both stated understanding. PHYSICAL EXAM EYES: Anicteric. Pupils equal and reactive. HENT: No oral thrush seen, moist Oral mucosa NECK: Supple, no JVD or thyromegaly. LUNGS: Good air entry. No rales, no rhonchi. CARDIOVASCULAR: S1, S2 regular. No murmur heard. ABDOMEN: Soft, non tender, bowel sounds present, no organomegaly CENTRAL NERVOUS SYSTEM: Awake, alert, oriented x 3. No focal deficits. SKIN: No rashes, no swelling. LYMPHATICS: No peripheral lymphadenopathy MUSCULOSKELETAL: No joint swelling, erythema or tenderness. EXTREMITIES: No cyanosis or clubbing BACK: No deformity, no pressure ulcer. GENITOURINARY: No dysuria or hematuria Vital Sign (Last 12 Hours) 11/19/24 11/20/24 11/20/24 11/20/24 23:39 03:55 08:00 08:00 Temp 99.1 98.4 100.2 Pulse 66 101 94 Resp 18 18 16 B/P (MAP) 127/58 114/61 116/58 Pulse Ox 96 98 95 95 O2 Delivery Room Air Room Air Room Air Room Air* O2 Flow Rate 0 FiO2 21 21 21 Intake & Output (last 24hrs) 11/19/24 11/19/24 11/20/24 15:00 23:00 07:00 Intake Total 600 ml 390 ml 475.0 ml Balance 600 ml 390 ml 475.0 ml LABS: Laboratory: Test 11/20/24 05:18 11/20/24 05:10 11/18/24 15:03 11/18/24 14:21 Range/Units White Blood Count 16.1 H 4.8-10.8 K/uL Red Blood Count 3.09 L 4.50-6.20 MIL/uL Hemoglobin 9.5 L 14.0-18.0 g/dL Hematocrit 28.9 L 42-54 % Mean Corpuscular Volume 93.5 79-99 fL Mean Corpuscular Hemoglobin 30.7 27.0-33.0 pg Mean Corpuscular Hemoglobin Concent 32.9 32.0-36.0 g/dL Red Cell Distribution Width 14.6 11.0-15.5 % Platelet Count 78 L 130-400 K/uL Mean Platelet Volume 10.7 H 7.5-10.5 fL Immature Granulocyte % (Auto) 0.6 0-1 % Neutrophils (%) (Auto) 84.6 H 40.0-77.0 % Lymphocytes (%) (Auto) 8.9 L 21.0-51.0 % Monocytes (%) (Auto) 5.0 3.0-13.0 % Eosinophils (%) (Auto) 0.7 0.0-8.0 % Basophils (%) (Auto) 0.2 0.0-5.0 % Neutrophils # (Auto) 13.6 H 1.8-7.7 K/uL Lymphocytes # (Auto) 1.4 1.0-4.8 K/uL Monocytes # (Auto) 0.8 0.1-1.0 K/uL Eosinophils # (Auto) 0.12 0.00-0.70 K/uL Basophils # (Auto) 0.03 0.00-0.20 K/uL Absolute Immature Granulocyte (auto 0.10 0-1 K/uL Nucleated Red Blood Cells 0.0 0.0-0.19 % Sodium Level 132 L 136-145 mmol/L Potassium Level 3.7 3.5-5.1 mmol/L Chloride Level 100 L 101-111 mmol/L Carbon Dioxide Level 24 21-32 mmol/L Blood Urea Nitrogen 7 7-18 mg/dL Creatinine 1.0 0.5-1.3 mg/dL Glomerular Filtration Rate Calc 80 >90 mL/min Random Glucose 146 H 70-105 mg/dL Total Calcium 8.4 L 8.5-10.1 mg/dL Magnesium Level 1.50 L 1.80-2.40 mg/dL Total Bilirubin 0.5 # 0.2-1.0 mg/dL Aspartate Amino Transf (AST/SGOT) 17 10-37 U/L Alanine Aminotransferase (ALT/SGPT) 11 L 12-78 U/L Alkaline Phosphatase 64 50-136 U/L Total Protein 5.8 L 6.0-8.3 g/dL Albumin 2.2 L 3.5-5.0 g/dL Whole Blood Glucose 151 H 70-110 MG/DL Urine Color YELLOW YELLOW Urine Appearance CLEAR CLEAR Urine pH 6.0 5.0-8.0 Urine Specific [place] 1.034 H 1.001-1.031 Urine Protein 20 H NEGATIVE mg/dL Urine Glucose (UA) 300 H NEGATIVE mg/dL Urine Ketones 20 H NEGATIVE mg/dL Urine Occult Blood NEGATIVE NEGATIVE Urine Nitrate NEGATIVE NEGATIVE Urine Bilirubin NEGATIVE NEGATIVE mg/dL Urine Urobilinogen 0.2 0.2-1.0 mg/dL Urine Leukocyte Esterase NEGATIVE NEGATIVE Rojelio/uL Urine RBC 0-1 0-1 /HPF Urine WBC 2-5 H 0-1 /HPF Urine Squamous Epithelial Cells RARE 0-2 /HPF Urine Bacteria RARE None Seen /HPF Troponin I High Sensitivity 1777 *H 4-75 ng/L DIAGNOSTICS / RADIOLOGY: [ ] ASSESSMENT: * Sepsis. * Diabetes mellitus. * NSTEMI. * Thrombocytopenia. * Hypertension. * Debility. * Gram positive bacteremia PLAN: * D/C doxycycline * D/C Zosyn * follow up with MRI thoracic, lumbar spin with and without contrast results * Continue antihypertensive. * continue antidiabetic. * Continue nutritional support. * Monitor electrolytes and correct as needed. * continue vancomycin as per pharmacy protocol * start rifampin 300mg BID this case has been discussed with my supervising physician Dr. Montoya. The case has been discussed and agreed on. ALBA CHAVARRIA [facility] Nov 20, 2024 11:34
--- NOTE | 2024-11-20 11:36 | HMCIMG ---
EXAM: CT Lumbar Spine Without IV Contrast. CLINICAL HISTORY: Pain. Immobile. TECHNIQUE: Spiral axial CT images through the lumbar spine were acquired, reconstructed in axial and sagittal projections, and imaged using soft tissue and bone algorithms. Reformatted/MPR images were performed. A CT scan is done according to ALARA (As Low as Reasonably Achievable). CONTRAST: None. COMPARISON: MRI of the lumbar spine. 10/07/2024. FINDINGS: No acute fracture. Normal lordotic curvature. There is an L3-L4 laminectomy. Intact fixation hardware in the L3???L4-L5 vertebral bodies. Normal vertebral body heights. Multilevel Schmorl???s nodes. Significant reduction in L5-S1 intervertebral disc height. Decreased bone mineralization. The surrounding soft tissues are unremarkable. Individual spinal levels are described as follows: T12-L1: No disc bulge or herniation. No neural foramina, lateral recess, or spinal canal stenosis. L1-L2: Mild disc bulge of 2 mm. Mild narrowing of both the lateral recesses and neuroforamina. Mild canal narrowing. L2-L3: Mild disc bulge of 2 mm. Mild narrowing of both the lateral recesses and neuroforamina. Mild canal narrowing. L3-L4: Moderate disc bulge of 4 mm. Moderate narrowing of both the lateral recesses and neuroforamina. Moderate canal narrowing. L4-L5: Moderate disc bulge of 4 mm. Moderate narrowing of both the lateral recesses and neuroforamina. Moderate canal narrowing. L5-S1: Moderate disc bulge of 4 mm. Moderate narrowing of both the lateral recesses and neuroforamina. Mild canal narrowing. IMPRESSIONS: 1. No acute fracture or subluxation. Osteopenia. L3-L4 laminectomy. Intact fixation hardware in the L3???L4-L5 vertebral bodies. Multilevel Schmorl???s nodes. Significant reduction in L5-S1 intervertebral disc height. 2. Moderate lumbar spondylosis. Moderate disc bulges at L3-L4, L4-L5, and L5-S1 levels with moderate narrowing of both the lateral recesses and neuroforamina at these levels. Mild narrowing of both the lateral recesses and neuroforamina at L1-L2 and L2-L3 levels. 3. Moderate spinal canal narrowing at L3-L4 and L4-L5 levels. Mild spinal canal narrowing at L1-L2, L2-L3, and L5-S1 levels. Findings are stable since the prior MRI. 4. Mild thickening of the urinary bladder wall suggests chronic cystitis. /[place]
--- NOTE | 2024-11-20 12:10 | HMCIMG ---
EXAM: CT Thoracic Spine With and Without IV Contrast. CLINICAL HISTORY: Pain. Immobile. TECHNIQUE: Spiral axial CT images through the thoracic spine were acquired, reconstructed in axial and sagittal projections, and imaged using soft tissue and bone algorithms. Reformatted/MPR images were performed. A CT scan is done according to ALARA (As Low as Reasonably Achievable). CONTRAST: Omnipaque 350, 75 ml. COMPARISON: None provided. FINDINGS: The cervicothoracic and thoracolumbar junctions are intact. No acute fracture. Normal thoracic curvature. Normal vertebral body and disc heights. Decreased bone density. Multilevel anterior osteophytes. The prevertebral and paravertebral soft tissues are within normal limits. Disov-nf-coick findings are as follows: C7-T1: No disc bulge or herniation. No neural foramina, lateral recess, or spinal canal stenosis. T1-T2: No disc bulge or herniation. No neural foramina, lateral recess, or spinal canal stenosis. T2-T3: No disc bulge or herniation. No neural foramina, lateral recess, or spinal canal stenosis. T3-T4: No disc bulge or herniation. No neural foramina, lateral recess, or spinal canal stenosis. T4-T5: No disc bulge or herniation. No neural foramina, lateral recess, or spinal canal stenosis. T5-T6: No disc bulge or herniation. No neural foramina, lateral recess, or spinal canal stenosis. T6-T7: No disc bulge or herniation. No neural foramina, lateral recess, or spinal canal stenosis. T7-T8: No disc bulge or herniation. No neural foramina, lateral recess, or spinal canal stenosis. T8-T9: No disc bulge or herniation. No neural foramina, lateral recess, or spinal canal stenosis. T9-T10: No disc bulge or herniation. No neural foramina, lateral recess, or spinal canal stenosis. T10-T11: Mild posterior disc osteophyte complex of 2 mm. No neural foramina, lateral recess, or spinal canal stenosis. T11-T12: No disc bulge or herniation. No neural foramina, lateral recess, or spinal canal stenosis. T12-L1: No disc bulge or herniation. No neural foramina, lateral recess, or spinal canal stenosis. Mild bilateral effusions. IMPRESSION: 1. No acute fracture or subluxation. 2. Osteopenia with mild generalised thoracic spondylosis at the T10-T11 level. 3. Mild posterior disc osteophyte complex of 2 mm. 4. Mild bilateral effusions. /[place]
--- NOTE | 2024-11-20 12:25 | PN ---
[facility] PROGRESS NOTE Date of Service: Nov 20, 2024 Time of Service: 12:22 SUBJECTIVE: [ ] Mr. Bennett is a 74-year-old male that was seen and examined today on 11/17/2024. Patient is a poor historian and personal health due to past medical history of dementia. Patient's , Erma Thomas is at bedside. Patient says that patient came to the emergency department with a chief complaint of weakness. Onset was today at 5:00 p.m.. Location is to bilateral lower extremities. Duration is constant. Character is described as, "he was just sitting in the sofa all day and sleeping more than usual. There was no alleviating factors. There was no aggravating factors. Spouse reports associated fever and chills. 11/18/24 patient was seen earlier patient is lying in bed with family at bedside. Patient was discharged from [facility] for long-term IV antibiotics discharged home with oral antibiotics we will have ID on board. Patient denied chest pain or shortness for breath. 11/19/24 patient was seen patient denied chest pain shortness a breath. He complaints being constipated we will provide as needed lactulose. Patient waiting for CT lumbar spine examined to be done most likely on Wednesday. We will have Physical therapy work with patient as well. All questions and answers addressed appropriately. 11/20/2024 patient was seen earlier patient is lying in bed patient went for a MYKE this morning. We will follow-up results continues with triple antibiotics tolerating well cultures in process. Continues to work with physical therapy primary nurse reports no events overnight REVIEW OF SYSTEMS CONSTITUTIONAL: Denies fevers, chills, or night sweats. No unintentional weight loss reported. NEUROLOGICAL: Denies headache, amaurosis fugax, motor weakness, sensory deficit, vertigo/spinning sensation, gait abnormalities, or tremors. ENT: No hearing loss, otalgia, otorrhea, rhinitis, rhinorrhea, hoarseness, or sore throat. CARDIOVASCULAR: Denies any exertional angina, dyspnea on exertion, orthopnea, paroxysmal nocturnal dyspnea, palpitations, life-threatening arrhythmias, claudication. PULMONARY: Denies any shortness of breath, cough, phlegm/sputum, hemoptysis, pleuritic chest pain. SLEEP: Denies morning headaches, daytime somnolence or napping. Denies difficulty falling asleep, staying asleep, waking from sleep. Denies knowledge of snoring. GASTROINTESTINAL: Denies any type of dysphagia to either liquids or solids. Denies nausea, vomiting, pyrosis, early satiety, abdominal pain, diarrhea, constipation, or changes in stool consistency or caliber. Denies coffee-ground emesis, hematemesis, hematochezia, or melanotic stools. GENITOURINARY: Denies frequency, urgency, nocturia, hematuria or incontinence (Storage/Irritative symptoms.) Low urinary stream, straining to void, urinary intermittency or hesitancy, splitting of the voiding stream, terminal dribbling. ENDOCRINOLOGIC: Denies polyuria, polydipsia, polyphagia or heat/cold intolerances. HEMATOLOGIC: Denies thrombophilia/previous clots, or coagulopathy/bleeding disorders. ONCOLOGIC: Denies personal history of malignancy. DERMATOLOGIC: Denies rashes or pruritus. PSYCHIATRIC: Denies any suicidal or homicidal ideation. Denies hallucinations. PHYSICAL EXAM GENERAL APPEARANCE: The patient is awake, alert, and oriented, in no acute cardiopulmonary distress. NEUROLOGICAL: Cranial nerves II-XII grossly intact. Motor is 5/5 in bilateral upper and lower extremities proximal to distal. No sensory deficits. HEENT: Face is symmetric. Pupils are equal and reactive. Extraocular movements are intact. NECK: Supple. No JVD. No thyromegaly. No submental, submandibular, pre- /postauricular, occipital or supraclavicular lymphadenopathy. CHEST: Normal chest expansion. No Telemetry. LUNGS: Absence of any rales, rhonchi or any wheezing. CARDIOVASCULAR: Regular. S1 and S2 normal. No appreciable rubs, murmurs or gallops. ABDOMEN: Soft, nontender, and nondistended. There is no rebound, voluntary guarding, or rigidity. : Deferred. No Emmanuel. EXTREMITIES: Non-edematous and not cyanotic. No clubbing. Good capillary refill. SKIN: No skin breakdown. Vital Signs (last 8hr) Date Time Temp Pulse Resp B/P (MAP) Pulse Ox O2 Delivery O2 Flow Rate FiO2 11/20/24 08:00 95 Room Air* 0 21 11/20/24 08:00 100.2 94 16 116/58 95 Room Air LABS: Laboratory: Test 11/20/24 11:40 11/20/24 05:18 8//25 15:03 11/18/24 14:21 Range/Units Whole Blood Glucose 147 H 70-110 MG/DL White Blood Count 16.1 H 4.8-10.8 K/uL Red Blood Count 3.09 L 4.50-6.20 MIL/uL Hemoglobin 9.5 L 14.0-18.0 g/dL Hematocrit 28.9 L 42-54 % Mean Corpuscular Volume 93.5 79-99 fL Mean Corpuscular Hemoglobin 30.7 27.0-33.0 pg Mean Corpuscular Hemoglobin Concent 32.9 32.0-36.0 g/dL Red Cell Distribution Width 14.6 11.0-15.5 % Platelet Count 78 L 130-400 K/uL Mean Platelet Volume 10.7 H 7.5-10.5 fL Immature Granulocyte % (Auto) 0.6 0-1 % Neutrophils (%) (Auto) 84.6 H 40.0-77.0 % Lymphocytes (%) (Auto) 8.9 L 21.0-51.0 % Monocytes (%) (Auto) 5.0 3.0-13.0 % Eosinophils (%) (Auto) 0.7 0.0-8.0 % Basophils (%) (Auto) 0.2 0.0-5.0 % Neutrophils # (Auto) 13.6 H 1.8-7.7 K/uL Lymphocytes # (Auto) 1.4 1.0-4.8 K/uL Monocytes # (Auto) 0.8 0.1-1.0 K/uL Eosinophils # (Auto) 0.12 0.00-0.70 K/uL Basophils # (Auto) 0.03 0.00-0.20 K/uL Absolute Immature Granulocyte (auto 0.10 0-1 K/uL Nucleated Red Blood Cells 0.0 0.0-0.19 % Sodium Level 132 L 136-145 mmol/L Potassium Level 3.7 3.5-5.1 mmol/L Chloride Level 100 L 101-111 mmol/L Carbon Dioxide Level 24 21-32 mmol/L Blood Urea Nitrogen 7 7-18 mg/dL Creatinine 1.0 0.5-1.3 mg/dL Glomerular Filtration Rate Calc 80 >90 mL/min Random Glucose 146 H 70-105 mg/dL Total Calcium 8.4 L 8.5-10.1 mg/dL Magnesium Level 1.50 L 1.80-2.40 mg/dL Total Bilirubin 0.5 # 0.2-1.0 mg/dL Aspartate Amino Transf (AST/SGOT) 17 10-37 U/L Alanine Aminotransferase (ALT/SGPT) 11 L 12-78 U/L Alkaline Phosphatase 64 50-136 U/L Total Protein 5.8 L 6.0-8.3 g/dL Albumin 2.2 L 3.5-5.0 g/dL Urine Color YELLOW YELLOW Urine Appearance CLEAR CLEAR Urine pH 6.0 5.0-8.0 Urine Specific [place] 1.034 H 1.001-1.031 Urine Protein 20 H NEGATIVE mg/dL Urine Glucose (UA) 300 H NEGATIVE mg/dL Urine Ketones 20 H NEGATIVE mg/dL Urine Occult Blood NEGATIVE NEGATIVE Urine Nitrate NEGATIVE NEGATIVE Urine Bilirubin NEGATIVE NEGATIVE mg/dL Urine Urobilinogen 0.2 0.2-1.0 mg/dL Urine Leukocyte Esterase NEGATIVE NEGATIVE Rojelio/uL Urine RBC 0-1 0-1 /HPF Urine WBC 2-5 H 0-1 /HPF Urine Squamous Epithelial Cells RARE 0-2 /HPF Urine Bacteria RARE None Seen /HPF Troponin I High Sensitivity 1777 *H 4-75 ng/L Current Medications Medications (Trade) Dose Ordered Sig/Ann Marie Route PRN Reason Start Time Stop Time Status Last Admin Dose Admin Acetaminophen (TYLenol 325MG TAB) 650 mg Q6H PRN PO TEMPERATURE GREATER THAN 101.5 11/17/24 22:00 12/17/24 21:59 11/18/24 20:13 650 MG Aspirin (Aspirin 81mg Ec Tab) 81 mg DAILY PO 11/18/24 09:00 11/18/24 14:00 DC 11/18/24 09:48 81 MG Aspirin (Aspirin 81mg Ec Tab) 81 mg DAILY PO 11/19/24 09:00 12/19/24 08:59 11/19/24 08:28 81 MG Atorvastatin Calcium (LIPItor 40MG) 40 mg HS PO 11/18/24 21:00 12/18/24 20:59 11/19/24 20:11 40 MG Donepezil HCl (ARIcept 5MG TAB) 5 mg HS PO 11/18/24 21:00 12/18/24 20:59 11/19/24 20:11 5 MG Doxycycline Hyclate (Doxycycline Hyclate) 100 mg Q12H PO 11/18/24 12:00 11/28/24 11:59 11/19/24 22:59 100 MG Enoxaparin Sodium (Lovenox) 40 mg DAILY SQ 11/18/24 09:00 11/18/24 01:27 DC Famotidine (Pepcid 20mg Tab) 20 mg DAILY PO 11/18/24 09:00 12/18/24 08:59 11/19/24 08:28 20 MG Gabapentin (NEURontin 300 MG CAP) 300 mg BID PO 11/18/24 21:00 12/18/24 20:59 11/19/24 20:11 300 MG Home Med (Home Medication) BID OP 11/18/24 21:00 12/18/24 20:59 Hydralazine HCl (APRESOLine 20MG INJ) 10 mg Q6H PRN IV For:SBP above 160;DBP above 90 11/17/24 22:00 12/17/24 21:59 Insulin Human Regular (humuLIN R 100 UNIT/ML 3ML) INSULIN SLIDING SCAL... ACHS SQ 11/18/24 07:30 12/18/24 07:29 11/19/24 20:21 2 UNIT Magnesium Sulfate 50 ml @ 0 mls/hr PROTOCOL PRN IV RX MONITORING LEVELS & DOSING 11/17/24 23:00 11/18/24 01:30 DC 11/18/24 00:22 25 MLS/HR Magnesium Sulfate 50 ml @ 0 mls/hr PROTOCOL PRN IV h 11/18/24 01:30 12/18/24 01:29 11/20/24 06:27 25 MLS/HR Morphine Sulfate (morPHINE 2MG SYG) 2 mg Q4H PRN IVP SEVERE PAIN (7-10) 11/17/24 22:00 11/24/24 21:59 Nitroglycerin (Nitrostat) 0.4 mg PROTOCOL PRN SL CHEST PAIN 11/17/24 22:00 12/17/24 21:59 Ondansetron HCl (zoFRAN 4MG INJ) 4 mg Q6H PRN IV NAUSEA/VOMITING 11/17/24 22:00 12/17/24 21:59 11/18/24 20:20 4 MG Pharmacy Profile Note (Pharmacy Communication) 1 each ONCE MISC 11/20/24 12:30 11/20/24 12:16 DC Piperacillin Sod/ Tazobactam Sod (Zosyn 3.375gm+NS 50ml) 3.375 gm Q8H IV 11/18/24 05:00 11/28/24 04:59 11/20/24 04:13 3.375 GM Potassium Chloride 100 ml @ 100 mls/hr AD PRN IV POTASSIUM PROTOCOL 11/18/24 01:30 12/18/24 01:29 Potassium Chloride (K-Dur/Klor-Con 20meq) 20 meq AD PRN PO POTASSIUM PROTOCOL 11/18/24 01:30 12/18/24 01:29 Potassium Chloride (KCl 10% Elixir 20meq/15ml) 20 meq AD PRN PO POTASSIUM PROTOCOL 11/18/24 01:30 12/18/24 01:29 Vancomycin HCl 250 ml @ 125 mls/hr Q24H IV 11/18/24 22:00 11/28/24 21:59 11/19/24 21:20 125 MLS/HR Vancomycin HCl (Vancomycin Protocol) 1 each AD IV 11/17/24 21:30 12/01/24 21:29 DIAGNOSTICS / RADIOLOGY: [ ] ASSESSMENT: bacteremia POA Sepsis,( TEMPERATURE 101.1 HEART RATE 104 LACTIC ACID 4.4 WBCS 140 POA Failed outpatient treatment. Elevated troponin most likely [place] type II: in the setting of sepsis POA acute on chronic heart failure with EF 45-50% with exacerbation BNP elevated POa Thrombocytopenia, POA MULTIFOCAL ANEMIA HYPOKALEMIA Chronic back pain POA Uncontrolled Diabetes mellitius type2, POA Severe protein calorie malnutrition with muscle atrophy POA Dementia Hyperlipidemia CAD Hypertension] PLAN: [ ] Admit: Medical-surgical floor condition: Guarded Status: Full code IVF: heplock Consultants infectious disease Antibiotics: Vancomycin IV, doxycycline IV. And Zosyn Microbiology Blood cultures positive cluster pending final Labs cbc, cmp, mag+ Replace electrolytes as needed as per protocol to keep potassium above 4.0 magnesium 2.0. Imaging MYKE today we will follow results Pending CAT scan lumbar spine and thorax is my hand without contrast given to patient complaints of low back pain Pain management: Morphine as needed Supportive measures: DVT ppx, GI ppx all questions answered Supervising MD: Dr. Mona Mayers c/d This document was generated in part using voice recognition software, occasional wrong word or sound alike substitutions may have occurred due to the inherent limitations of voice recognition software. Read the chart carefully and recognize using context, where the substitutions have occurred. Although every effort was made to edit the content, music writer and typing errors may occur ATTESTATION BY PHYSICIAN I have seen and examined the patient. I reviewed the documentation, medical decision making, and treatment plan as noted by the mid-level provider above. I agree with the findings and plan of care. Brittany Dunn MD, [facility] NP Nov 20, 2024 12:25
[2024-11-20] MEDS ORDERED: PHARMACY COMMUNICATION MISC SCH (12:30)
--- NOTE | 2024-11-20 14:38 | NUR ---
Nutritional Note: Chart, meds, and labs Reviewed. Recommend: -Continue 75gm CC minced moist diet -Nephrovite MVI combination of B vitamins may be used to treat or prevent vitamin deficiency due to poor diet. -Magic Cup 4oz w/ PM tray: Provides 9gm pro/ 290kcal and 20 vitamins and minerals. Isabella to serve with meals as a means of adding calories and protein for unintended weight loss. -ProStat BID (30 ml) JELLO to help meet protein needs. - Electrolyte replacements per protocol -Monitor feeding tolerance, %, wt, and labs -Document PO intake and wt daily. -If No BM >3days consider bowel stimulant. -Consider appetite stimulant if intake remains <75%for 3 days. -Schedule outpatient RD f/u for long-term nutrition care. - Notify RD if additional nutrition concerns arise. SEE RD Nutritional Assessment for additional assessment information. Addendum: 11/20/24 at [address] Amended: Links added.
[2024-11-20] MEDS: VANCOMYCIN 1.5 GM/250 ML BAG 250 ML IV SCH (21:48)
[2024-11-20 22:10] LABS: SPOTTED FEVER GROUP IGG <1:64 (Neg:<1:64); SPOTTED FEVER GROUP IGM <1:64 (Neg:<1:64)
[2024-11-21] VITALS (9 sets, daily range): BP systolic 109–137; BP diastolic 56–66; PULSE 81–93; RESP 18–19; TEMP 98–100.3; O2SAT 98–99
[2024-11-21 04:56] LABS: IMMATURE GRANULOCYTE ABSOLUTE 0.08 K/uL (0-1); NUCLEATED RED BLOOD CELLS 0.0 % (0.0-0.19); PLATELET COUNT (AUTO) 84 K/uL (130-400); RED BLOOD CELL COUNT(AUTO) 2.83 MIL/uL (4.50-6.20); RED CELL DISTRIBUTION WIDTH 14.5 % (11.0-15.5); WHITE BLOOD COUNT (AUTO) 13.0 K/uL (4.8-10.8)
[2024-11-21 05:09] LABS: ASPARTATE AMINOTRANSFERASE 19.0 U/L (10-37); CREATININE 0.8 mg/dL (0.5-1.3); GLOMERULAR FILTR. RATE CALC 94.0 mL/min (>90); GLUCOSE,RANDOM 140.0 mg/dL (70-105); SODIUM SERUM 136.0 mmol/L (136-145); TOTAL PROTEIN, SERUM 5.3 g/dL (6.0-8.3); UREA NITROGEN, BLOOD 7.0 mg/dL (7-18)
--- NOTE | 2024-11-21 08:37 | PN ---
[facility] CARDIOLOGY PROGRESS NOTE Date Patient Seen: Nov 21, 2024 Time of Visit: 08:31 Interval History: This is a 74-year-old Latin-[place] male with a past medical history of severe aortic stenosis status post minimally invasive aortic valve replacement with an extra-large Cristhian Jc bioprosthetic aortic valve 09/04/2016, essentially normal coronary arteries by prior cardiac catheterization 08/19/2016, hyperlipidemia, hypertension, type 2 diabetes mellitus who was admitted for management of possible recurrent sepsis. He presented with generalized body weakness, fever and diarrhea onset 48 hours prior to admission. He had been managed at [facility] recently for bacteremia and was discharge one-week ago, his reporting that he had recurrent fevers throughout the week since discharge. (he was admitted here 10/05/2024 through 10/15/2024 with bacteremia and a MYKE on 10/09/2024 demonstrated no evidence of valvular vegetation). On admission he did have a temperature of 101. The patient did have evidence of elevated troponin with admission troponin of 350, rising to 3303 on 11/18/2024 and trending down. He underwent a 2D echocardiogram on 11/18/2024 demonstrated normal LVEF of 55- 60%, mild concentric LVH and stage I diastolic dysfunction. The bioprosthetic aortic valve was noted with peak aortic valve gradient of 41 mmHg, mean aortic valve gradient of 23 mmHg and dimensionless index of 1.42 and small perivalvular leak. Blood cultures from 11/17/2024 have grown Staphylococcus epidermidis. Previously a transesophageal echo 10/09/2024 demonstrated no evidence of valvular vegetation. He underwent a repeat MYKE on 11/20/2024 demonstrating a 0.4 x 0.8 cm linear mobile vegetation on the anterior mitral valve leaflet, consistent with SBE. Prosthetic aortic valve demonstrated thickened leaflets, but no evidence of perforation, deterioration, or mobile/oscillating vegetation. There was trace central-valvular aortic insufficiency only. There was no evidence of clear perivalvular abscess, or valve motion to suggest dehiscence. He underwent repeat blood cultures on 11/19/2024 positive for Gram-positive cocci likely similar organism, but organism identification is pending. He offers no orthopnea, PND, chest pain or other cardiac symptoms. Is resting comfortably flat in bed. T-max overnight was 100.2. He has no peripheral stigmata at best PE in has not no skin lesions were chronic indwelling line to explain Staph epidermidis SBE. Physical Examination: GENERAL: No acute distress. HEAD: Normal with no signs of head trauma. EYES: PERRLA, EOMI, conjunctiva and sclera normal. NECK: Supple without JVD. There is no tenderness, lymphadenopathy, or masses. No thyromegaly. Normal carotid upstrokes without bruits. LUNGS: Clear breath sounds bilaterally. No wheezes, or rhonchi. HEART: Normal rate and rhythm. Normal S1 and S2 there is a 2/6 early peaking systolic ejection murmur louder at the left midsternal border. VASC: Peripheral pulses +2 bilaterally. EXT: No clubbing, cyanosis or edema. NEURO: Awake, alert, and oriented x3. No focal neurological deficits noted. Laboratory: Hematology Labs: Test 11/21/24 04:25 Range/Units White Blood Count 13.0 H 4.8-10.8 K/uL Red Blood Count 2.83 L 4.50-6.20 MIL/uL Hemoglobin 8.7 L 14.0-18.0 g/dL Hematocrit 26.6 L 42-54 % Mean Corpuscular Volume 94.0 79-99 fL Mean Corpuscular Hemoglobin 30.7 27.0-33.0 pg Mean Corpuscular Hemoglobin Concent 32.7 32.0-36.0 g/dL Red Cell Distribution Width 14.5 11.0-15.5 % Platelet Count 84 L 130-400 K/uL Mean Platelet Volume 10.6 H 7.5-10.5 fL Immature Granulocyte % (Auto) 0.6 0-1 % Neutrophils (%) (Auto) 84.0 H 40.0-77.0 % Lymphocytes (%) (Auto) 8.8 L 21.0-51.0 % Monocytes (%) (Auto) 5.6 3.0-13.0 % Eosinophils (%) (Auto) 0.8 0.0-8.0 % Basophils (%) (Auto) 0.2 0.0-5.0 % Neutrophils # (Auto) 11.0 H 1.8-7.7 K/uL Lymphocytes # (Auto) 1.2 1.0-4.8 K/uL Monocytes # (Auto) 0.7 0.1-1.0 K/uL Eosinophils # (Auto) 0.10 0.00-0.70 K/uL Basophils # (Auto) 0.03 0.00-0.20 K/uL Absolute Immature Granulocyte (auto 0.08 0-1 K/uL Nucleated Red Blood Cells 0.0 0.0-0.19 % Chemistry Labs: Test 11/21/24 05:11 11/21/24 04:25 Range/Units Whole Blood Glucose 135 H 70-110 MG/DL Sodium Level 136 136-145 mmol/L Potassium Level 3.8 3.5-5.1 mmol/L Chloride Level 103 101-111 mmol/L Carbon Dioxide Level 26 21-32 mmol/L Blood Urea Nitrogen 7 7-18 mg/dL Creatinine 0.8 0.5-1.3 mg/dL Glomerular Filtration Rate Calc 94 >90 mL/min Random Glucose 140 H 70-105 mg/dL Total Calcium 8.0 L 8.5-10.1 mg/dL Magnesium Level 1.30 L 1.80-2.40 mg/dL Total Bilirubin 0.8 # 0.2-1.0 mg/dL Aspartate Amino Transf (AST/SGOT) 19 10-37 U/L Alanine Aminotransferase (ALT/SGPT) 15 # 12-78 U/L Alkaline Phosphatase 60 50-136 U/L Total Protein 5.3 L 6.0-8.3 g/dL Albumin 1.9 L 3.5-5.0 g/dL Diagnostics / Radiology: 2D echocardiogram 11/18/2024: Conclusion LVEF is 55-60% with normal wall motion (volume measurements made by optical laboratory technician are inaccurate). Stage I diastolic dysfunction with elevated mean LV filling pressure. The left atrium size is mildly dilated. Bioprosthetic aortic valve is present, probably a TAVR. Peak/Mean gradient 41/23 mmHg. Small perivalvular leak. Mitral regurgitation is mild. MYKE 11/20/2024: There was a 0.4 x 0.8 cm linear mobile vegetation on the anterior mitral valve leaflet, consistent with SBE. Prosthetic aortic valve demonstrates thickened leaflets, but no evidence of perforation, deterioration, or mobile or oscillating vegetation. There was trace central-valvular aortic insufficiency only. There was no evidence of clear perivalvular abscess, or valve motion to suggest dehiscence. 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 Montoya -case discussed with Dr. Montoya today -no evidence of vegetation on the bioprosthetic aortic valve -Dr. Montoya has requested thoracic and lumbar MRI given the patient's complaints of back pain Type [address] segment elevation SD, in the setting of sepsis, with troponin rising to 3303: Normal coronary arteries by prior cardiac catheterization 2017: Normal LVEF with an LVEF of 55-60% and normal wall motion on 2D echocardiogram 11/18/2024: -continue antiplatelet therapy and statin therapy Severe aortic stenosis status post minimally invasive aortic valve replacement with an extra-large Cristhian Jc bioprosthetic aortic valve 09/04/2016: -normal functioning bioprosthetic aortic valve by 2D echocardiogram 11/18/2024, and by transesophageal echo 11/20/2024. Comorbidities: C-spine myelomalacia Dementia MYKE 10/09/2024 demonstrated an LVEF of 45-50% and no valvular vegetations Hypertension Hyperlipidemia Type 2 diabetes mellitus JACOB FOLEY MD Nov 21, 2024 08:37
--- NOTE | 2024-11-21 09:37 | HMCSR ---
APPROVED REPORT EXAM: Transesophageal echocardiogram with color flow Doppler. INDICATION ICD: Evaluate for prosthetic valve endocarditis Reason For Test : Rule out endocarditis. PROCEDURE After obtaining informed consent, patient underwent transesophageal echo in the room 419 15 mL 2% Viscous Lidocaine was given as a topical anesthetic prior to the administration of the consc ious sedation. Type of Sedation: Conscious Sedation Sedation was administered by Please refer to medication administration record.. Sedation was achieved with please refer to medication administration record. intravenously. Transesophageal probe was inserted and advanced into esophagus without difficulty by Arlin Shaw MD. Echo enhancement indication: Throughout the procedure, the blood pressure, pulse oximetry, cardiac rhythm, and rate were monitored . Left Ventricle Left ventricular cavity size is normal. Hyperdynamic wall motion of the left ventricle. Moderate conc entric left ventricular hypertrophy. LVEF is >65%. Indeterminate diastolic function Right Ventricle The right ventricle is normal size. The right ventricular systolic function is normal. Atria The left atrium size is normal. No evidence of PFO by color flow Doppler. The right atrium size is no rmal. Aortic Valve Cristhian [place] bioprosthesis from 2017. The prosthetic aortic valve leaflets are thickened. Trace of aortic regurgitation is present. No evidence of perivalvular/paravalvular leak, perforation, deterior ation, or mobile or oscillating vegetation noted. There is no aortic valvular stenosis. Mitral Valve Mitral valve leaflets open well. There is trace to mild mitral valve regurgitation noted. Linear mobi le vegetation noted on the anterior annulus of the mitral valve leaflet measuring 0.4cm x 0.8 cm, whi ch was not seen on prior MYKE 10/09/2024. There is no mitral valve stenosis. Tricuspid Valve The tricuspid valve is normal in structure and function. There is trace of tricuspid valve regurgitat ion noted. No tricuspid valve vegetation. Pulmonic Valve The pulmonary valve is normal in structure and function. There is no pulmonic valvular regurgitation. No pulmonic valve vegetation. Great Vessels The aortic root is normal in size. Descending aorta appears normal in size with mild plaque noted. As cending aorta appears normal in size. Pericardium No pericardial effusion. Conclusion Moderate concentric left ventricular hypertrophy. Hyperdynamic wall motion of the left ventricle. LVEF is >65%. Cristhian Jc bioprosthesis from 2017. The prosthetic aortic valve leaflets are thickened. No evidence of perivalvular/paravalvular leak, perforation, deterioration, or mobile or oscillating vegetation noted. There is trace to mild mitral valve regurgitation noted. Linear mobile vegetation noted on the anterior annulus of the mitral valve leaflet measuring 0.4cm x 0.8 cm, which was not seen on prior MYKE 10/09/2024. There is trace to mild mitral valve regurgitation noted. Descending aorta appears normal in size with mild plaque noted. Ascending aorta appears normal in size. No pericardial effusion.
--- NOTE | 2024-11-21 11:10 | PN ---
INFECTIOUS DISEASE PROGRESS NOTE Date of Service: Nov 21, 2024 SUBJECTIVE: This 74 year old male patient is being seen today at bedside. A low grade temperature noted early this morning. Patient denies pain at this time. No chest pain or shortness of breath. Patient antibiotics were adjusted yesterday, and tolerating well. MRI results were reviewed. Went over plan of care with patient and at bedside stated understanding. No acute events over night by nurse. PHYSICAL EXAM EYES: Anicteric. Pupils equal and reactive. HENT: No oral thrush seen, moist Oral mucosa NECK: Supple, no JVD or thyromegaly. LUNGS: Good air entry. No rales, no rhonchi. CARDIOVASCULAR: S1, S2 regular. No murmur heard. ABDOMEN: Soft, non tender, bowel sounds present, no organomegaly CENTRAL NERVOUS SYSTEM: Awake, alert, oriented x 3. No focal deficits. SKIN: No rashes, no swelling. LYMPHATICS: No peripheral lymphadenopathy MUSCULOSKELETAL: No joint swelling, erythema or tenderness. EXTREMITIES: No cyanosis or clubbing BACK: No deformity, no pressure ulcer. GENITOURINARY: No dysuria or hematuria Vital Sign (Last 12 Hours) 11/20/24 11/21/24 11/21/24 11/21/24 23:24 04:02 06:03 07:51 Temp 99.3 100.2 98.4 Pulse 92 93 Resp 18 18 B/P (MAP) 146/67 109/59 Pulse Ox 99 98 98 O2 Delivery Nasal Cannula Nasal Cannula Nasal Cannula* O2 Flow Rate 2.0 2.0 2 FiO2 24 28 11/21/24 08:14 Temp 98.1 Pulse 83 Resp 18 B/P (MAP) 109/56 Pulse Ox 96 O2 Delivery Nasal Cannula O2 Flow Rate 2.0 Intake & Output (last 24hrs) 11/20/24 11/20/24 11/21/24 15:00 23:00 07:00 Intake Total 600.0 ml Balance 600.0 ml LABS: Laboratory: Test 11/21/24 05:11 11/21/24 04:25 11/20/24 20:32 Range/Units Whole Blood Glucose 135 H 70-110 MG/DL White Blood Count 13.0 H 4.8-10.8 K/uL Red Blood Count 2.83 L 4.50-6.20 MIL/uL Hemoglobin 8.7 L 14.0-18.0 g/dL Hematocrit 26.6 L 42-54 % Mean Corpuscular Volume 94.0 79-99 fL Mean Corpuscular Hemoglobin 30.7 27.0-33.0 pg Mean Corpuscular Hemoglobin Concent 32.7 32.0-36.0 g/dL Red Cell Distribution Width 14.5 11.0-15.5 % Platelet Count 84 L 130-400 K/uL Mean Platelet Volume 10.6 H 7.5-10.5 fL Immature Granulocyte % (Auto) 0.6 0-1 % Neutrophils (%) (Auto) 84.0 H 40.0-77.0 % Lymphocytes (%) (Auto) 8.8 L 21.0-51.0 % Monocytes (%) (Auto) 5.6 3.0-13.0 % Eosinophils (%) (Auto) 0.8 0.0-8.0 % Basophils (%) (Auto) 0.2 0.0-5.0 % Neutrophils # (Auto) 11.0 H 1.8-7.7 K/uL Lymphocytes # (Auto) 1.2 1.0-4.8 K/uL Monocytes # (Auto) 0.7 0.1-1.0 K/uL Eosinophils # (Auto) 0.10 0.00-0.70 K/uL Basophils # (Auto) 0.03 0.00-0.20 K/uL Absolute Immature Granulocyte (auto 0.08 0-1 K/uL Nucleated Red Blood Cells 0.0 0.0-0.19 % Sodium Level 136 136-145 mmol/L Potassium Level 3.8 3.5-5.1 mmol/L Chloride Level 103 101-111 mmol/L Carbon Dioxide Level 26 21-32 mmol/L Blood Urea Nitrogen 7 7-18 mg/dL Creatinine 0.8 0.5-1.3 mg/dL Glomerular Filtration Rate Calc 94 >90 mL/min Random Glucose 140 H 70-105 mg/dL Total Calcium 8.0 L 8.5-10.1 mg/dL Magnesium Level 1.30 L 1.80-2.40 mg/dL Total Bilirubin 0.8 # 0.2-1.0 mg/dL Aspartate Amino Transf (AST/SGOT) 19 10-37 U/L Alanine Aminotransferase (ALT/SGPT) 15 # 12-78 U/L Alkaline Phosphatase 60 50-136 U/L Total Protein 5.3 L 6.0-8.3 g/dL Albumin 1.9 L 3.5-5.0 g/dL Vancomycin Level Trough 9.4 #L 10.0-20.0 UG/ML DIAGNOSTICS / RADIOLOGY: SPEC: [id number] MICHELLE: 11/17/24 STATUS: COMP REQ: [id number] RECD: 11/18/[address] [facility] [address]: SIMA MATTHEWS SOURCE: BLOOD ENTR: 11/18/[address] [facility] [address]: SAM FIGUEROA PA-C SPDESC: BLOOD NONE ORDERED: AERO ID & SENS Procedure Result Jose Alejandro Date-Time AEROBIC ID & SENSITIVITIES Final 11/21/24-0616 [facility] DESCRIPTION: DAY 1: GRAM POSITIVE COCCI IN CLUSTERS COAGULASE NEGATIVE STAPHYLOCOCCUS AEROBIC AND ANAEROBIC BOTTLES IDENTIFICATION AND SENSITIVITY TO FOLLOW STAPHYLOCOCCUS EPIDERMIDIS ROBERTO Barrera.I.CStef RX --------- ---- CLINDAMYCIN <=0.25 S ERYTHROMYCIN >4 R GENTAMICIN <=4 S VANCOMYCIN 1 S OXACILLIN AMRITA >2 R RIFAMPIN <=1 S TETRACYCLINE <=4 S TRIMETHOPRIM/SUFLAMETHOXAZOLE 2/38 S @ [facility] Test Performed at: [facility] [address], [place], [place] [employer] Worker: Joaquim Izquierdo D.O. ASSESSMENT: * Sepsis. * Diabetes mellitus. * NSTEMI. * Thrombocytopenia. * Hypertension. * Debility. * Gram positive bacteremia PLAN: * Continue antihypertensive. * continue antidiabetic. * Continue nutritional support. * Monitor electrolytes and correct as needed. * continue vancomycin as per pharmacy protocol * Continue rifampin 300mg BID * patient will need a total of 6 weeks of antibiotics * Case management to Referral to [facility] [address] * Follow up with blood cultures This case has been discussed with my supervising physician Dr. Montoya. The case has been discussed and agreed upon. ALBA CHAVARRIA [facility] Nov 21, 2024 11:10
--- NOTE | 2024-11-21 13:23 | PN ---
[facility] PROGRESS NOTE Date of Service: Nov 21, 2024 Time of Service: 13:22 SUBJECTIVE: [ ] Mr. Bennett is a 74-year-old male that was seen and examined today on 11/17/2024. Patient is a poor historian and personal health due to past medical history of dementia. Patient's , Erma Thomas is at bedside. Patient says that patient came to the emergency department with a chief complaint of weakness. Onset was today at 5:00 p.m.. Location is to bilateral lower extremities. Duration is constant. Character is described as, "he was just sitting in the sofa all day and sleeping more than usual. There was no alleviating factors. There was no aggravating factors. Spouse reports associated fever and chills. 11/18/24 patient was seen earlier patient is lying in bed with family at bedside. Patient was discharged from LTAC for long-term IV antibiotics discharged home with oral antibiotics we will have ID on board. Patient denied chest pain or shortness for breath. 11/19/24 patient was seen patient denied chest pain shortness a breath. He complaints being constipated we will provide as needed lactulose. Patient waiting for CT lumbar spine examined to be done most likely on Wednesday. We will have Physical therapy work with patient as well. All questions and answers addressed appropriately. 11/20/2024 patient was seen earlier patient is lying in bed patient went for a MYKE this morning. We will follow-up results continues with triple antibiotics tolerating well cultures in process. Continues to work with physical therapy primary nurse reports no events overnight 11/21/2024 patient was seen earlier patient is lying in bed encourage out of bed to chair as tolerated. Continue with broad-spectrum antibiotics vancomycin Zosyn IV. REVIEW OF SYSTEMS CONSTITUTIONAL: Denies fevers, chills, or night sweats. No unintentional weight loss reported. NEUROLOGICAL: Denies headache, amaurosis fugax, motor weakness, sensory deficit, vertigo/spinning sensation, gait abnormalities, or tremors. ENT: No hearing loss, otalgia, otorrhea, rhinitis, rhinorrhea, hoarseness, or sore throat. CARDIOVASCULAR: Denies any exertional angina, dyspnea on exertion, orthopnea, p aroxysmal nocturnal dyspnea, palpitations, life-threatening arrhythmias, claudication. PULMONARY: Denies any shortness of breath, cough, phlegm/sputum, hemoptysis, pleuritic chest pain. SLEEP: Denies morning headaches, daytime somnolence or napping. Denies difficulty falling asleep, staying asleep, waking from sleep. Denies knowledge of snoring. GASTROINTESTINAL: Denies any type of dysphagia to either liquids or solids. Denies nausea, vomiting, pyrosis, early satiety, abdominal pain, diarrhea, constipation, or changes in stool consistency or caliber. Denies coffee-ground emesis, hematemesis, hematochezia, or melanotic stools. GENITOURINARY: Denies frequency, urgency, nocturia, hematuria or incontinence (Storage/Irritative symptoms.) Low urinary stream, straining to void, urinary intermittency or hesitancy, splitting of the voiding stream, terminal dribbling. ENDOCRINOLOGIC: Denies polyuria, polydipsia, polyphagia or heat/cold intolerances. HEMATOLOGIC: Denies thrombophilia/previous clots, or coagulopathy/bleeding disorders. ONCOLOGIC: Denies personal history of malignancy. DERMATOLOGIC: Denies rashes or pruritus. PSYCHIATRIC: Denies any suicidal or homicidal ideation. Denies hallucinations. PHYSICAL EXAM GENERAL APPEARANCE: The patient is awake, alert, and oriented, in no acute cardiopulmonary distress. NEUROLOGICAL: Cranial nerves II-XII grossly intact. Motor is 5/5 in bilateral upper and lower extremities proximal to distal. No sensory deficits. HEENT: Face is symmetric. Pupils are equal and reactive. Extraocular movements are intact. NECK: Supple. No JVD. No thyromegaly. No submental, submandibular, pre- /postauricular, occipital or supraclavicular lymphadenopathy. CHEST: Normal chest expansion. No Telemetry. LUNGS: Absence of any rales, rhonchi or any wheezing. CARDIOVASCULAR: Regular. S1 and S2 normal. No appreciable rubs, murmurs or gallops. ABDOMEN: Soft, nontender, and nondistended. There is no rebound, voluntary guarding, or rigidity. : Deferred. No Emmanuel. EXTREMITIES: Non-edematous and not cyanotic. No clubbing. Good capillary refill. SKIN: No skin breakdown. Vital Signs (last 8hr) Date Time Temp Pulse Resp B/P (MAP) Pulse Ox O2 Delivery O2 Flow Rate FiO2 11/21/24 12:00 99.1 81 18 121/62 98 Room Air 11/21/24 08:14 98.1 83 18 109/56 96 Nasal Cannula 2.0 11/21/24 07:51 98 Nasal Cannula* 2 28 11/21/24 06:03 98.4 LABS: Laboratory: Test 11/21/24 10:59 11/21/24 04:25 11/20/24 20:32 Range/Units Whole Blood Glucose 160 H 70-110 MG/DL White Blood Count 13.0 H 4.8-10.8 K/uL Red Blood Count 2.83 L 4.50-6.20 MIL/uL Hemoglobin 8.7 L 14.0-18.0 g/dL Hematocrit 26.6 L 42-54 % Mean Corpuscular Volume 94.0 79-99 fL Mean Corpuscular Hemoglobin 30.7 27.0-33.0 pg Mean Corpuscular Hemoglobin Concent 32.7 32.0-36.0 g/dL Red Cell Distribution Width 14.5 11.0-15.5 % Platelet Count 84 L 130-400 K/uL Mean Platelet Volume 10.6 H 7.5-10.5 fL Immature Granulocyte % (Auto) 0.6 0-1 % Neutrophils (%) (Auto) 84.0 H 40.0-77.0 % Lymphocytes (%) (Auto) 8.8 L 21.0-51.0 % Monocytes (%) (Auto) 5.6 3.0-13.0 % Eosinophils (%) (Auto) 0.8 0.0-8.0 % Basophils (%) (Auto) 0.2 0.0-5.0 % Neutrophils # (Auto) 11.0 H 1.8-7.7 K/uL Lymphocytes # (Auto) 1.2 1.0-4.8 K/uL Monocytes # (Auto) 0.7 0.1-1.0 K/uL Eosinophils # (Auto) 0.10 0.00-0.70 K/uL Basophils # (Auto) 0.03 0.00-0.20 K/uL Absolute Immature Granulocyte (auto 0.08 0-1 K/uL Nucleated Red Blood Cells 0.0 0.0-0.19 % Sodium Level 136 136-145 mmol/L Potassium Level 3.8 3.5-5.1 mmol/L Chloride Level 103 101-111 mmol/L Carbon Dioxide Level 26 21-32 mmol/L Blood Urea Nitrogen 7 7-18 mg/dL Creatinine 0.8 0.5-1.3 mg/dL Glomerular Filtration Rate Calc 94 >90 mL/min Random Glucose 140 H 70-105 mg/dL Total Calcium 8.0 L 8.5-10.1 mg/dL Magnesium Level 1.30 L 1.80-2.40 mg/dL Total Bilirubin 0.8 # 0.2-1.0 mg/dL Aspartate Amino Transf (AST/SGOT) 19 10-37 U/L Alanine Aminotransferase (ALT/SGPT) 15 # 12-78 U/L Alkaline Phosphatase 60 50-136 U/L Total Protein 5.3 L 6.0-8.3 g/dL Albumin 1.9 L 3.5-5.0 g/dL Vancomycin Level Trough 9.4 #L 10.0-20.0 UG/ML Current Medications Medications (Trade) Dose Ordered Sig/Ann Marie Route PRN Reason Start Time Stop Time Status Last Admin Dose Admin Acetaminophen (TYLenol 325MG TAB) 650 mg Q6H PRN PO TEMPERATURE GREATER THAN 101.5 11/17/24 22:00 12/17/24 21:59 11/18/24 20:13 650 MG Aspirin (Aspirin 81mg Ec Tab) 81 mg DAILY PO 11/18/24 09:00 11/18/24 14:00 DC 11/18/24 09:48 81 MG Aspirin (Aspirin 81mg Ec Tab) 81 mg DAILY PO 11/19/24 09:00 12/19/24 08:59 11/21/24 07:45 81 MG Atorvastatin Calcium (LIPItor 40MG) 40 mg HS PO 11/18/24 21:00 12/18/24 20:59 11/20/24 19:59 40 MG Donepezil HCl (ARIcept 5MG TAB) 5 mg HS PO 11/18/24 21:00 12/18/24 20:59 11/20/24 19:59 5 MG Doxycycline Hyclate (Doxycycline Hyclate) 100 mg Q12H PO 11/18/24 12:00 11/20/24 13:14 DC 11/19/24 22:59 100 MG Enoxaparin Sodium (Lovenox) 40 mg DAILY SQ 11/18/24 09:00 11/18/24 01:27 DC Famotidine (Pepcid 20mg Tab) 20 mg DAILY PO 11/18/24 09:00 12/18/24 08:59 11/21/24 07:46 20 MG Gabapentin (NEURontin 300 MG CAP) 300 mg BID PO 11/18/24 21:00 12/18/24 20:59 11/21/24 07:46 300 MG Home Med (Home Medication) BID OP 11/18/24 21:00 12/18/24 20:59 Hydralazine HCl (APRESOLine 20MG INJ) 10 mg Q6H PRN IV For:SBP above 160;DBP above 90 11/17/24 22:00 12/17/24 21:59 Insulin Human Regular (humuLIN R 100 UNIT/ML 3ML) INSULIN SLIDING SCAL... ACHS SQ 11/18/24 07:30 12/18/24 07:29 11/20/24 20:23 2 UNIT Magnesium Sulfate 50 ml @ 0 mls/hr PROTOCOL PRN IV RX MONITORING LEVELS & DOSING 11/17/24 23:00 11/18/24 01:30 DC 11/18/24 00:22 25 MLS/HR Magnesium Sulfate 50 ml @ 0 mls/hr PROTOCOL PRN IV h 11/18/24 01:30 12/18/24 01:29 11/21/24 09:32 0 MLS/HR Morphine Sulfate (morPHINE 2MG SYG) 2 mg Q4H PRN IVP SEVERE PAIN (7-10) 11/17/24 22:00 11/24/24 21:59 Nitroglycerin (Nitrostat) 0.4 mg PROTOCOL PRN SL CHEST PAIN 11/17/24 22:00 12/17/24 21:59 Ondansetron HCl (zoFRAN 4MG INJ) 4 mg Q6H PRN IV NAUSEA/VOMITING 11/17/24 22:00 12/17/24 21:59 11/18/24 20:20 4 MG Pharmacy Profile Note (Pharmacy Communication) 1 each ONCE MISC 11/20/24 12:30 11/20/24 12:16 DC Piperacillin Sod/ Tazobactam Sod (Zosyn 3.375gm+NS 50ml) 3.375 gm Q8H IV 11/18/24 05:00 11/28/24 04:59 11/21/24 04:02 3.375 GM Potassium Chloride 100 ml @ 100 mls/hr AD PRN IV POTASSIUM PROTOCOL 11/18/24 01:30 12/18/24 01:29 Potassium Chloride (K-Dur/Klor-Con 20meq) 20 meq AD PRN PO POTASSIUM PROTOCOL 11/18/24 01:30 12/18/24 01:29 Potassium Chloride (KCl 10% Elixir 20meq/15ml) 20 meq AD PRN PO POTASSIUM PROTOCOL 11/18/24 01:30 12/18/24 01:29 Rifampin (riFADin 300 MG CAP) 300 mg BID PO 11/20/24 21:00 11/30/24 20:59 11/21/24 07:45 300 MG Vancomycin HCl 250 ml @ 83.333 mls/ hr Q24H IV 11/20/24 22:00 11/30/24 21:59 11/20/24 21:48 83.333 MLS/HR Vancomycin HCl 250 ml @ 125 mls/hr Q24H IV 11/18/24 22:00 11/20/24 21:14 DC 11/19/24 21:20 125 MLS/HR Vancomycin HCl (Vancomycin Protocol) 1 each AD IV 11/17/24 21:30 11/20/24 13:14 DC DIAGNOSTICS / RADIOLOGY: [ ] ASSESSMENT: bacteremia gram positive POA 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 Labs cbc, cmp, mag+ Replace electrolytes as needed as per protocol to keep potassium above 4.0 magnesium 2.0. 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 Mona Mayers c/d This document was generated in part using voice recognition software, occasional wrong word or sound alike substitutions may have occurred due to the inherent limitations of voice recognition software. Read the chart carefully and recognize using context, where the substitutions have occurred. Although every effort was made to edit the content, apparel sales leader and typing errors may occur ATTESTATION BY PHYSICIAN I have seen and examined the patient. I reviewed the documentation, medical decision making, and treatment plan as noted by the mid-level provider above. I agree with the findings and plan of care. Brittany Dunn MD, [facility] NP Nov 21, 2024 13:23
[2024-11-22] VITALS (10 sets, daily range): BP systolic 110–146; BP diastolic 52–79; PULSE 76–101; RESP 15–20; TEMP 98–101.2; O2SAT 98–100
[2024-11-22 05:37] LABS: IMMATURE GRANULOCYTE ABSOLUTE 0.05 K/uL (0-1); NUCLEATED RED BLOOD CELLS 0.0 % (0.0-0.19); PLATELET COUNT (AUTO) 94 K/uL (130-400); RED BLOOD CELL COUNT(AUTO) 2.70 MIL/uL (4.50-6.20); RED CELL DISTRIBUTION WIDTH 14.5 % (11.0-15.5); WHITE BLOOD COUNT (AUTO) 9.6 K/uL (4.8-10.8)
[2024-11-22 05:57] LABS: ASPARTATE AMINOTRANSFERASE 24.0 U/L (10-37); CREATININE 0.8 mg/dL (0.5-1.3); GLOMERULAR FILTR. RATE CALC 94.0 mL/min (>90); GLUCOSE,RANDOM 186.0 mg/dL (70-105); SODIUM SERUM 135.0 mmol/L (136-145); TOTAL PROTEIN, SERUM 5.2 g/dL (6.0-8.3); UREA NITROGEN, BLOOD 6.0 mg/dL (7-18)
--- NOTE | 2024-11-22 09:57 | PN ---
[facility] PROGRESS NOTE Date of Service: Nov 22, 2024 Time of Service: 09:52 SUBJECTIVE: [ ] Mr. Bennett is a 74-year-old male that was seen and examined today on 11/17/2024. Patient is a poor historian and personal health due to past medical history of dementia. Patient's , Erma Thomas is at bedside. Patient says that patient came to the emergency department with a chief complaint of weakness. Onset was today at 5:00 p.m.. Location is to bilateral lower extremities. Duration is constant. Character is described as, "he was just sitting in the sofa all day and sleeping more than usual. There was no alleviating factors. There was no aggravating factors. Spouse reports associated fever and chills. 11/18/24 patient was seen earlier patient is lying in bed with family at bedside. Patient was discharged from LTAC for long-term IV antibiotics discharged home with oral antibiotics we will have ID on board. Patient denied chest pain or shortness for breath. 11/19/24 patient was seen patient denied chest pain shortness a breath. He complaints being constipated we will provide as needed lactulose. Patient waiting for CT lumbar spine examined to be done most likely on Wednesday. We will have Physical therapy work with patient as well. All questions and answers addressed appropriately. 11/20/2024 patient was seen earlier patient is lying in bed patient went for a MYKE this morning. We will follow-up results continues with triple antibiotics tolerating well cultures in process. Continues to work with physical therapy primary nurse reports no events overnight 11/21/2024 patient was seen earlier patient is lying in bed encourage out of bed to chair as tolerated. Continue with broad-spectrum antibiotics vancomycin Zosyn IV. 11/22/24 patient is seen and examined patient is lying in bed. Case management discharge planning LTAC patient is pending CT angio for abscess on valve. We will continue to monitor patient closely. REVIEW OF SYSTEMS CONSTITUTIONAL: Denies fevers, chills, or night sweats. No unintentional weight loss reported. NEUROLOGICAL: Denies headache, amaurosis fugax, motor weakness, sensory deficit, vertigo/spinning sensation, gait abnormalities, or tremors. ENT: No hearing loss, otalgia, otorrhea, rhinitis, rhinorrhea, hoarseness, or sore throat. CARDIOVASCULAR: Denies any exertional angina, dyspnea on exertion, orthopnea, paroxysmal nocturnal dyspnea, palpitations, life-threatening arrhythmias, claudication. PULMONARY: Denies any shortness of breath, cough, phlegm/sputum, hemoptysis, pleuritic chest pain. SLEEP: Denies morning headaches, daytime somnolence or napping. Denies d ifficulty falling asleep, staying asleep, waking from sleep. Denies knowledge of snoring. GASTROINTESTINAL: Denies any type of dysphagia to either liquids or solids. Denies nausea, vomiting, pyrosis, early satiety, abdominal pain, diarrhea, constipation, or changes in stool consistency or caliber. Denies coffee-ground emesis, hematemesis, hematochezia, or melanotic stools. GENITOURINARY: Denies frequency, urgency, nocturia, hematuria or incontinence (Storage/Irritative symptoms.) Low urinary stream, straining to void, urinary intermittency or hesitancy, splitting of the voiding stream, terminal dribbling. ENDOCRINOLOGIC: Denies polyuria, polydipsia, polyphagia or heat/cold intolerances. HEMATOLOGIC: Denies thrombophilia/previous clots, or coagulopathy/bleeding disorders. ONCOLOGIC: Denies personal history of malignancy. DERMATOLOGIC: Denies rashes or pruritus. PSYCHIATRIC: Denies any suicidal or homicidal ideation. Denies hallucinations. PHYSICAL EXAM GENERAL APPEARANCE: The patient is awake, alert, and oriented, in no acute cardiopulmonary distress. NEUROLOGICAL: Cranial nerves II-XII grossly intact. Motor is 5/5 in bilateral upper and lower extremities proximal to distal. No sensory deficits. HEENT: Face is symmetric. Pupils are equal and reactive. Extraocular movements are intact. NECK: Supple. No JVD. No thyromegaly. No submental, submandibular, pre- /postauricular, occipital or supraclavicular lymphadenopathy. CHEST: Normal chest expansion. No Telemetry. LUNGS: Absence of any rales, rhonchi or any wheezing. CARDIOVASCULAR: Regular. S1 and S2 normal. No appreciable rubs, murmurs or gallops. ABDOMEN: Soft, nontender, and nondistended. There is no rebound, voluntary guarding, or rigidity. : Deferred. No Emmanuel. EXTREMITIES: Non-edematous and not cyanotic. No clubbing. Good capillary refill. SKIN: No skin breakdown. Vital Signs (last 8hr) Date Time Temp Pulse Resp B/P (MAP) Pulse Ox O2 Delivery O2 Flow Rate FiO2 11/22/24 07:52 98.8 80 15 125/56 100 Nasal Cannula 2.0 11/22/24 03:53 98.4 89 17 143/62 98 Nasal Cannula 2.0 24 LABS: Laboratory: Test 11/22/24 05:22 11/22/24 05:09 11/20/24 20:32 Range/Units White Blood Count 9.6 4.8-10.8 K/uL Red Blood Count 2.70 L 4.50-6.20 MIL/uL Hemoglobin 8.3 L 14.0-18.0 g/dL Hematocrit 25.3 L 42-54 % Mean Corpuscular Volume 93.7 79-99 fL Mean Corpuscular Hemoglobin 30.7 27.0-33.0 pg Mean Corpuscular Hemoglobin Concent 32.8 32.0-36.0 g/dL Red Cell Distribution Width 14.5 11.0-15.5 % Platelet Count 94 L 130-400 K/uL Mean Platelet Volume 10.4 7.5-10.5 fL Immature Granulocyte % (Auto) 0.5 0-1 % Neutrophils (%) (Auto) 75.1 40.0-77.0 % Lymphocytes (%) (Auto) 13.5 L 21.0-51.0 % Monocytes (%) (Auto) 8.2 3.0-13.0 % Eosinophils (%) (Auto) 2.3 0.0-8.0 % Basophils (%) (Auto) 0.4 0.0-5.0 % Neutrophils # (Auto) 7.2 1.8-7.7 K/uL Lymphocytes # (Auto) 1.3 1.0-4.8 K/uL Monocytes # (Auto) 0.8 0.1-1.0 K/uL Eosinophils # (Auto) 0.22 0.00-0.70 K/uL Basophils # (Auto) 0.04 0.00-0.20 K/uL Absolute Immature Granulocyte (auto 0.05 0-1 K/uL Nucleated Red Blood Cells 0.0 0.0-0.19 % Sodium Level 135 L 136-145 mmol/L Potassium Level 3.6 3.5-5.1 mmol/L Chloride Level 102 101-111 mmol/L Carbon Dioxide Level 29 21-32 mmol/L Blood Urea Nitrogen 6 L 7-18 mg/dL Creatinine 0.8 0.5-1.3 mg/dL Glomerular Filtration Rate Calc 94 >90 mL/min Random Glucose 186 H 70-105 mg/dL Total Calcium 8.0 L 8.5-10.1 mg/dL Magnesium Level 1.60 L 1.80-2.40 mg/dL Total Bilirubin 0.8 0.2-1.0 mg/dL Aspartate Amino Transf (AST/SGOT) 24 10-37 U/L Alanine Aminotransferase (ALT/SGPT) 19 12-78 U/L Alkaline Phosphatase 69 50-136 U/L Total Protein 5.2 L 6.0-8.3 g/dL Albumin 1.9 L 3.5-5.0 g/dL Whole Blood Glucose 179 H 70-110 MG/DL Vancomycin Level Trough 9.4 #L 10.0-20.0 UG/ML Current Medications Medications (Trade) Dose Ordered Sig/Ann Marie Route PRN Reason Start Time Stop Time Status Last Admin Dose Admin Acetaminophen (TYLenol 325MG TAB) 650 mg Q6H PRN PO TEMPERATURE GREATER THAN 101.5 11/17/24 22:00 12/17/24 21:59 11/18/24 20:13 650 MG Aspirin (Aspirin 81mg Ec Tab) 81 mg DAILY PO 11/18/24 09:00 11/18/24 14:00 DC 11/18/24 09:48 81 MG Aspirin (Aspirin 81mg Ec Tab) 81 mg DAILY PO 11/19/24 09:00 12/19/24 08:59 11/22/24 08:32 81 MG Atorvastatin Calcium (LIPItor 40MG) 40 mg HS PO 11/18/24 21:00 12/18/24 20:59 11/21/24 22:09 40 MG Donepezil HCl (ARIcept 5MG TAB) 5 mg HS PO 11/18/24 21:00 12/18/24 20:59 11/21/24 22:09 5 MG Doxycycline Hyclate (Doxycycline Hyclate) 100 mg Q12H PO 11/18/24 12:00 11/20/24 13:14 DC 11/19/24 22:59 100 MG Enoxaparin Sodium (Lovenox) 40 mg DAILY SQ 11/18/24 09:00 11/18/24 01:27 DC Famotidine (Pepcid 20mg Tab) 20 mg DAILY PO 11/18/24 09:00 12/18/24 08:59 11/22/24 08:33 20 MG Gabapentin (NEURontin 300 MG CAP) 300 mg BID PO 11/18/24 21:00 12/18/24 20:59 11/22/24 08:33 300 MG Home Med (Home Medication) BID OP 11/18/24 21:00 12/18/24 20:59 Hydralazine HCl (APRESOLine 20MG INJ) 10 mg Q6H PRN IV For:SBP above 160;DBP above 90 11/17/24 22:00 12/17/24 21:59 Insulin Human Regular (humuLIN R 100 UNIT/ML 3ML) INSULIN SLIDING SCAL... ACHS SQ 11/18/24 07:30 12/18/24 07:29 11/22/24 07:11 2 UNIT Magnesium Sulfate 50 ml @ 0 mls/hr PROTOCOL PRN IV RX MONITORING LEVELS & DOSING 11/17/24 23:00 11/18/24 01:30 DC 11/18/24 00:22 25 MLS/HR Magnesium Sulfate 50 ml @ 0 mls/hr PROTOCOL PRN IV h 11/18/24 01:30 12/18/24 01:29 11/21/24 09:32 0 MLS/HR Morphine Sulfate (morPHINE 2MG SYG) 2 mg Q4H PRN IVP SEVERE PAIN (7-10) 11/17/24 22:00 11/24/24 21:59 Nitroglycerin (Nitrostat) 0.4 mg PROTOCOL PRN SL CHEST PAIN 11/17/24 22:00 12/17/24 21:59 Ondansetron HCl (zoFRAN 4MG INJ) 4 mg Q6H PRN IV NAUSEA/VOMITING 11/17/24 22:00 12/17/24 21:59 11/18/24 20:20 4 MG Pharmacy Profile Note (Pharmacy Communication) 1 each ONCE MISC 11/20/24 12:30 11/20/24 12:16 DC Piperacillin Sod/ Tazobactam Sod (Zosyn 3.375gm+NS 50ml) 3.375 gm Q8H IV 11/18/24 05:00 11/28/24 04:59 11/22/24 05:35 3.375 GM Potassium Chloride 100 ml @ 100 mls/hr AD PRN IV POTASSIUM PROTOCOL 11/18/24 01:30 12/18/24 01:29 Potassium Chloride (K-Dur/Klor-Con 20meq) 20 meq AD PRN PO POTASSIUM PROTOCOL 11/18/24 01:30 12/18/24 01:29 Potassium Chloride (KCl 10% Elixir 20meq/15ml) 20 meq AD PRN PO POTASSIUM PROTOCOL 11/18/24 01:30 12/18/24 01:29 Rifampin (riFADin 300 MG CAP) 300 mg BID PO 11/20/24 21:00 11/30/24 20:59 11/22/24 08:32 300 MG Vancomycin HCl 250 ml @ 83.333 mls/ hr Q24H IV 11/20/24 22:00 11/30/24 21:59 11/21/24 22:48 83.333 MLS/HR Vancomycin HCl 250 ml @ 125 mls/hr Q24H IV 11/18/24 22:00 11/20/24 21:14 DC 11/19/24 21:20 125 MLS/HR Vancomycin HCl (Vancomycin Protocol) 1 each AD IV 11/17/24 21:30 11/20/24 13:14 DC DIAGNOSTICS / RADIOLOGY: [ ] ASSESSMENT: bacteremia gram positive POA 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 Imaging CT angio for abscess on value Case management for LTAC Labs cbc, cmp, mag+ Replace electrolytes as needed as per protocol to keep potassium above 4.0 magnesium 2.0. PT services out of bed to chair as tolerated Pain management: Morphine as needed Supportive measures: DVT ppx, GI ppx all questions answered Supervising MD: Dr. Mona Mayers c/d This document was generated in part using voice recognition software, occasional wrong word or sound alike substitutions may have occurred due to the inherent limitations of voice recognition software. Read the chart carefully and recognize using context, where the substitutions have occurred. Although every effort was made to edit the content, lining printer and typing errors may occur ATTESTATION BY PHYSICIAN I have seen and examined the patient. I reviewed the documentation, medical decision making, and treatment plan as noted by the mid-level provider above. I agree with the findings and plan of care. Brittany Dunn MD, [facility] NP Nov 22, 2024 09:57
--- NOTE | 2024-11-22 10:12 | PN ---
[facility] CARDIOLOGY PROGRESS NOTE Date Patient Seen: Nov 22, 2024 Time of Visit: 09:53 Interval History: This is a 74-year-old Latin-Ivorian male with a past medical history of severe aortic stenosis status post minimally invasive aortic valve replacement with an extra-large Cristhian Jc bioprosthetic aortic valve 09/04/2016, essentially normal coronary arteries by prior cardiac catheterization 08/19/2016, hyperlipidemia, hypertension, type 2 diabetes mellitus who was admitted for management of possible recurrent sepsis. He presented with generalized body weakness, fever and diarrhea onset 48 hours prior to admission. He had been managed at [facility] recently for bacteremia and was discharge one-week ago, his reporting that he had recurrent fevers throughout the week since discharge. (he was admitted here 10/05/2024 through 10/15/2024 with bacteremia and a MYKE on 10/09/2024 demonstrated no evidence of valvular vegetation). On admission he did have a temperature of 101. The patient did have evidence of elevated troponin with admission troponin of 350, rising to 3303 on 11/18/2024 and trending down. He underwent a 2D echocardiogram on 11/18/2024 demonstrated normal LVEF of 55- 60%, mild concentric LVH and stage I diastolic dysfunction. The bioprosthetic aortic valve was noted with peak aortic valve gradient of 41 mmHg, mean aortic valve gradient of 23 mmHg and dimensionless index of 1.42 and small perivalvular leak. Blood cultures from 11/17/2024 have grown Staphylococcus epidermidis. Blood cultures from 11/19/2024 are also growing Staphylococcus epidermidis. Previously a transesophageal echo 10/09/2024 demonstrated no evidence of valvular vegetation. He underwent a repeat MYKE on 11/20/2024 demonstrating a 0.4 x 0.8 cm linear mobile vegetation on the anterior mitral valve leaflet, consistent with SBE. Prosthetic aortic valve demonstrated thickened leaflets, but no evidence of perforation, deterioration, or mobile/oscillating vegetation. There was trace central-valvular aortic insufficiency only. There was no evidence of clear perivalvular abscess, or valve motion to suggest dehiscence. He offers no orthopnea, PND, chest pain or other cardiac symptoms. The patient had no fever overnight and has no leukocytosis. Physical Examination: GENERAL: No acute distress. HEAD: Normal with no signs of head trauma. EYES: PERRLA, EOMI, conjunctiva and sclera normal. NECK: Supple without JVD. There is no tenderness, lymphadenopathy, or masses. No thyromegaly. Normal carotid upstrokes without bruits. LUNGS: Clear breath sounds bilaterally. No wheezes, or rhonchi. HEART: Normal rate and rhythm. Normal S1 and S2 there is a 2/6 mid peaking systolic ejection murmur louder at the left midsternal border. There is no diastolic murmur audible. There is no MR murmur audible. VASC: Peripheral pulses +2 bilaterally. EXT: No clubbing, cyanosis or edema. NEURO: Awake, alert, and oriented x3. No focal neurological deficits noted. Laboratory: Hematology Labs: Test 11/22/24 05:22 Range/Units White Blood Count 9.6 4.8-10.8 K/uL Red Blood Count 2.70 L 4.50-6.20 MIL/uL Hemoglobin 8.3 L 14.0-18.0 g/dL Hematocrit 25.3 L 42-54 % Mean Corpuscular Volume 93.7 79-99 fL Mean Corpuscular Hemoglobin 30.7 27.0-33.0 pg Mean Corpuscular Hemoglobin Concent 32.8 32.0-36.0 g/dL Red Cell Distribution Width 14.5 11.0-15.5 % Platelet Count 94 L 130-400 K/uL Mean Platelet Volume 10.4 7.5-10.5 fL Immature Granulocyte % (Auto) 0.5 0-1 % Neutrophils (%) (Auto) 75.1 40.0-77.0 % Lymphocytes (%) (Auto) 13.5 L 21.0-51.0 % Monocytes (%) (Auto) 8.2 3.0-13.0 % Eosinophils (%) (Auto) 2.3 0.0-8.0 % Basophils (%) (Auto) 0.4 0.0-5.0 % Neutrophils # (Auto) 7.2 1.8-7.7 K/uL Lymphocytes # (Auto) 1.3 1.0-4.8 K/uL Monocytes # (Auto) 0.8 0.1-1.0 K/uL Eosinophils # (Auto) 0.22 0.00-0.70 K/uL Basophils # (Auto) 0.04 0.00-0.20 K/uL Absolute Immature Granulocyte (auto 0.05 0-1 K/uL Nucleated Red Blood Cells 0.0 0.0-0.19 % Chemistry Labs: Test 11/22/24 05:22 11/22/24 05:09 Range/Units Sodium Level 135 L 136-145 mmol/L Potassium Level 3.6 3.5-5.1 mmol/L Chloride Level 102 101-111 mmol/L Carbon Dioxide Level 29 21-32 mmol/L Blood Urea Nitrogen 6 L 7-18 mg/dL Creatinine 0.8 0.5-1.3 mg/dL Glomerular Filtration Rate Calc 94 >90 mL/min Random Glucose 186 H 70-105 mg/dL Total Calcium 8.0 L 8.5-10.1 mg/dL Magnesium Level 1.60 L 1.80-2.40 mg/dL Total Bilirubin 0.8 0.2-1.0 mg/dL Aspartate Amino Transf (AST/SGOT) 24 10-37 U/L Alanine Aminotransferase (ALT/SGPT) 19 12-78 U/L Alkaline Phosphatase 69 50-136 U/L Total Protein 5.2 L 6.0-8.3 g/dL Albumin 1.9 L 3.5-5.0 g/dL Whole Blood Glucose 179 H 70-110 MG/DL Diagnostics / Radiology: 2D echocardiogram 11/18/2024: Conclusion LVEF is 55-60% with normal wall motion (volume measurements made by organic extractions technician are inaccurate). Stage I diastolic dysfunction with elevated mean LV filling pressure. The left atrium size is mildly dilated. Bioprosthetic aortic valve is present, probably a TAVR. Peak/Mean gradient 41/23 mmHg. Small perivalvular leak. Mitral regurgitation is mild. MYKE 11/20/2024: There was a 0.4 x 0.8 cm linear mobile vegetation on the anterior mitral valve leaflet, consistent with SBE. Prosthetic aortic valve demonstrates thickened leaflets, but no evidence of perforation, deterioration, or mobile or oscillating vegetation. There was trace central-valvular aortic insufficiency only. There was no evidence of clear perivalvular abscess, or valve motion to suggest dehiscence. 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 Montoya -white blood count is fallen from 15.8 On 11/19/2024 to 9.6 today, which is reassuring -repeat blood cultures 11/19/2024 were again growing Staph epidermidis. I will schedule another set today 11/22/2024 -no evidence of vegetation on the bioprosthetic aortic valve. Plans for a CT angiogram of the heart to assess for any perivalvular aortic abscess. -CT of thoracic spine and lumbar spine demonstrated no apparent infectious process. There is fixation hardware in the lumbar spine. Type [address] segment elevation [place], in the setting of sepsis, with troponin rising to 3303: Normal coronary arteries by prior cardiac catheterization 2017: Normal LVEF with an LVEF of 55-60% and normal wall motion on 2D echocardiogram 11/18/2024: -continue antiplatelet therapy and statin therapy Severe aortic stenosis status post minimally invasive aortic valve replacement with an extra-large Cristhian [place] bioprosthetic aortic valve 09/04/2016: -normal functioning bioprosthetic aortic valve by 2D echocardiogram 11/18/2024, and by transesophageal echo 11/20/2024. Comorbidities: C-spine myelomalacia Dementia MYKE 10/09/2024 demonstrated an LVEF of 45-50% and no valvular vegetations Hypertension Hyperlipidemia Type 2 diabetes mellitus JACOB FOLEY MD Nov 22, 2024 10:12
--- NOTE | 2024-11-22 12:06 | PN ---
INFECTIOUS DISEASE PROGRESS NOTE Date of Service: Nov 22, 2024 SUBJECTIVE: This 74 year old male patient is being seen today. He is awake, alert and oriented. No fever or chills. Patient denies chest pain or shortness of breath. Patient is calm at this time. at bedside. Adjustments on antibiotics have been made, we will add gentamicin to treatment. A CT angiogram of the heart to rule out perivalvular aortic abscess has been recommended by cardio. No acute events over night we continue to follow patient closely. PHYSICAL EXAM EYES: Anicteric. Pupils equal and reactive. HENT: No oral thrush seen, moist Oral mucosa NECK: Supple, no JVD or thyromegaly. LUNGS: Good air entry. No rales, no rhonchi. CARDIOVASCULAR: S1, S2 regular. No murmur heard. ABDOMEN: Soft, non tender, bowel sounds present, no organomegaly CENTRAL NERVOUS SYSTEM: Awake, alert, oriented x 3. No focal deficits. SKIN: No rashes, no swelling. LYMPHATICS: No peripheral lymphadenopathy MUSCULOSKELETAL: No joint swelling, erythema or tenderness. EXTREMITIES: No cyanosis or clubbing BACK: No deformity, no pressure ulcer. GENITOURINARY: No dysuria or hematuria Vital Sign (Last 12 Hours) 11/22/24 11/22/24 11/22/24 03:53 07:52 11:06 Temp 98.4 98.8 98.1 Pulse 89 80 80 Resp 17 15 20 B/P (MAP) 143/62 125/56 117/53 Pulse Ox 98 100 100 O2 Delivery Nasal Cannula Nasal Cannula Nasal Cannula O2 Flow Rate 2.0 2.0 2.0 FiO2 24 Intake & Output (last 24hrs)0 11/21/24 11/21/24 11/22/24 15:00 23:00 07:00 Intake Total 800 ml 300 ml Output Total 800 ml 600 ml Balance 800 ml -500 ml -600 ml LABS: Laboratory: Test 11/22/24 10:16 11/22/24 05:22 11/20/24 20:32 Range/Units Whole Blood Glucose 170 H 70-110 MG/DL White Blood Count 9.6 4.8-10.8 K/uL Red Blood Count 2.70 L 4.50-6.20 MIL/uL Hemoglobin 8.3 L 14.0-18.0 g/dL Hematocrit 25.3 L 42-54 % Mean Corpuscular Volume 93.7 79-99 fL Mean Corpuscular Hemoglobin 30.7 27.0-33.0 pg Mean Corpuscular Hemoglobin Concent 32.8 32.0-36.0 g/dL Red Cell Distribution Width 14.5 11.0-15.5 % Platelet Count 94 L 130-400 K/uL Mean Platelet Volume 10.4 7.5-10.5 fL Immature Granulocyte % (Auto) 0.5 0-1 % Neutrophils (%) (Auto) 75.1 40.0-77.0 % Lymphocytes (%) (Auto) 13.5 L 21.0-51.0 % Monocytes (%) (Auto) 8.2 3.0-13.0 % Eosinophils (%) (Auto) 2.3 0.0-8.0 % Basophils (%) (Auto) 0.4 0.0-5.0 % Neutrophils # (Auto) 7.2 1.8-7.7 K/uL Lymphocytes # (Auto) 1.3 1.0-4.8 K/uL Monocytes # (Auto) 0.8 0.1-1.0 K/uL Eosinophils # (Auto) 0.22 0.00-0.70 K/uL Basophils # (Auto) 0.04 0.00-0.20 K/uL Absolute Immature Granulocyte (auto 0.05 0-1 K/uL Nucleated Red Blood Cells 0.0 0.0-0.19 % Sodium Level 135 L 136-145 mmol/L Potassium Level 3.6 3.5-5.1 mmol/L Chloride Level 102 101-111 mmol/L Carbon Dioxide Level 29 21-32 mmol/L Blood Urea Nitrogen 6 L 7-18 mg/dL Creatinine 0.8 0.5-1.3 mg/dL Glomerular Filtration Rate Calc 94 >90 mL/min Random Glucose 186 H 70-105 mg/dL Total Calcium 8.0 L 8.5-10.1 mg/dL Magnesium Level 1.60 L 1.80-2.40 mg/dL Total Bilirubin 0.8 0.2-1.0 mg/dL Aspartate Amino Transf (AST/SGOT) 24 10-37 U/L Alanine Aminotransferase (ALT/SGPT) 19 12-78 U/L Alkaline Phosphatase 69 50-136 U/L Total Protein 5.2 L 6.0-8.3 g/dL Albumin 1.9 L 3.5-5.0 g/dL Vancomycin Level Trough 9.4 #L 10.0-20.0 UG/ML DIAGNOSTICS / RADIOLOGY: SPEC: [id number] MICHELLE: 11/17/24 STATUS: REID REQ: [id number] RECD: 11/18/[address] [facility] [address]: SIMA MATTHEWS SOURCE: BLOOD ENTR: 11/18/24-[address] [facility] [address]: SAM FIGUEROA PA-C SPDESC: BLOOD NONE ORDERED: AERO ID & SENS Procedure Result Jose Alejandro Date-Time AEROBIC ID & SENSITIVITIES Final 11/21/24-0616 [facility] DESCRIPTION: DAY 1: GRAM POSITIVE COCCI IN CLUSTERS COAGULASE NEGATIVE STAPHYLOCOCCUS AEROBIC AND ANAEROBIC BOTTLES IDENTIFICATION AND SENSITIVITY TO FOLLOW STAPHYLOCOCCUS EPIDERMIDIS ROBERTO MathisIStefCStef RX --------- ---- CLINDAMYCIN <=0.25 S ERYTHROMYCIN >4 R GENTAMICIN <=4 S VANCOMYCIN 1 S OXACILLIN AMRITA >2 R RIFAMPIN <=1 S TETRACYCLINE <=4 S TRIMETHOPRIM/SUFLAMETHOXAZOLE 2/38 S @ [facility] Test Performed at: [facility] [address], [place], [place] Medical Chief Drafter: Joaquim Izquierdo D.O. ASSESSMENT: * Sepsis. * Diabetes mellitus. * NSTEMI. * Thrombocytopenia. * Hypertension. * Debility. * Gram positive bacteremia PLAN: * Continue antihypertensive. * continue antidiabetic. * Continue nutritional support. * Monitor electrolytes and correct as needed. * continue vancomycin as per pharmacy protocol * Continue rifampin 300mg BID * patient will need a total of 6 weeks of antibiotics * Case management to Referral to [facility] * Follow up with blood cultures * Start Gentamycin IV, for pharmacy to dose This case has been discussed with my supervising physician Dr. Montoya. The case has been discussed and agreed upon. ALBA CHAVARRIA [facility] Nov 22, 2024 12:06
[2024-11-22] MEDS ORDERED: IOHEXOL 350 MG/ML 100ML INFUS..BTL IV ONE (14:51)
--- NOTE | 2024-11-22 15:02 | NUR ---
TITUS ROSS RECEIVED CALL FROM [facility] FOR A PEER TO PEER. Mago with [facility] p2p for LTAC BY NOV.23 @ 9:30am [employer]. [phone] OPT 5. INFO SENT TO DINA DANIEL NP. Addendum: 11/22/24 at 1503 by JUILANN DELGADO RN CM Amended: Links added.
[2024-11-22] MEDS: PoTASSium chloRIDE 20MEQ ER 20 MEQ ERTAB PO PRN (15:43)
--- NOTE | 2024-11-22 16:34 | HMCIMG ---
EXAM: CTA Chest with Intravenous Contrast CLINICAL HISTORY: 74-year-old male, rule out perivalvular abscess surrounding bioprosthetic aortic valve TECHNIQUE: Axial CTA images of the chest with intravenous contrast. Three-dimensional MIP/volume rendered reformations were performed. Dose reduction technique was used including one or more of the following: automated exposure control, adjustment of mA and kV according to patient size, and/or iterative reconstruction. CONTRAST: Omnipaque 350 100 mL COMPARISON: XR Chest 11/17/2024 FINDINGS: PULMONARY ARTERIES: No CT evidence for pulmonary embolism within the limits of the exam AORTA: Atherosclerotic aorta seen LUNGS: Patchy infiltrates in the lower lobes, question of early pneumonia. Findings better appreciated compared to prior XR Chest 11/17/2024. PLEURAL SPACES: Small bilateral pleural effusions HEART AND MEDIASTINUM: There is a prosthetic aortic valve seen but no definite evidence for adjacent or contiguous focal fluid collection. Correlate with echocardiographic studies. Atherosclerotic coronary arteries seen. LYMPH NODES: No lymphadenopathy. BONES: Moderate degenerative changes in the thoracic spine CHEST WALL AND UPPER ABDOMEN: Moderate-sized gallstone IMPRESSION: 1. No definite evidence for perivalvular abscess surrounding the bioprosthetic aortic valve. Correlate with echocardiographic studies. 2. Patchy infiltrates in the lower lobes, question of early pneumonia. Findings better appreciated compared to prior XR Chest 11/17/2024. 3. Small bilateral pleural effusions. /[place]alsey
[2024-11-23 03:48] VITALS: BP 135/60; PULSE 82; RESP 18; TEMP 98.2
[2024-11-23 05:33] LABS: IMMATURE GRANULOCYTE ABSOLUTE 0.04 K/uL (0-1); NUCLEATED RED BLOOD CELLS 0.0 % (0.0-0.19); PLATELET COUNT (AUTO) 108 K/uL (130-400); RED BLOOD CELL COUNT(AUTO) 2.97 MIL/uL (4.50-6.20); RED CELL DISTRIBUTION WIDTH 14.6 % (11.0-15.5); WHITE BLOOD COUNT (AUTO) 8.3 K/uL (4.8-10.8)
[2024-11-23 05:49] LABS: ASPARTATE AMINOTRANSFERASE 20.0 U/L (10-37); CREATININE 0.8 mg/dL (0.5-1.3); GLOMERULAR FILTR. RATE CALC 94.0 mL/min (>90); GLUCOSE,RANDOM 159.0 mg/dL (70-105); SODIUM SERUM 136.0 mmol/L (136-145); TOTAL PROTEIN, SERUM 5.8 g/dL (6.0-8.3); UREA NITROGEN, BLOOD 7.0 mg/dL (7-18)
[2024-11-23 07:52] VITALS: BP 134/71; PULSE 104; RESP 18; TEMP 98.3
[2024-11-23 08:07] VITALS: O2SAT 97
--- NOTE | 2024-11-23 09:17 | PN ---
[facility] CARDIOLOGY PROGRESS NOTE Date Patient Seen: Nov 23, 2024 Time of Visit: 08:48 Interval History: This is a 74-year-old Latin-Moldovan male with a past medical history of severe aortic stenosis status post minimally invasive aortic valve replacement with an extra-large Cristhian Jc bioprosthetic aortic valve 09/04/2016, essentially normal coronary arteries by prior cardiac catheterization 08/19/2016, hyperlipidemia, hypertension, type 2 diabetes mellitus who was admitted for management of possible recurrent sepsis. He presented with generalized body weakness, fever and diarrhea onset 48 hours prior to admission. He had been managed at [facility] recently for bacteremia and was discharge 10/30/2024, his reporting that he had recurrent fevers beginning one week after discharge from [facility] (he was admitted here 10/05/2024 through 10/15/2024 with bacteremia and a MYKE on 10/09/2024 demonstrated no evidence of valvular vegetation). On admission he did have a temperature of 101. The patient did have evidence of elevated troponin with admission troponin of 350, rising to 3303 on 11/18/2024 and trending down. He underwent a 2D echocardiogram on 11/18/2024 demonstrated normal LVEF of 55- 60%, mild concentric LVH and stage I diastolic dysfunction. The bioprosthetic aortic valve was noted with peak aortic valve gradient of 41 mmHg, mean aortic valve gradient of 23 mmHg and dimensionless index of 1.42 and small perivalvular leak. Blood cultures from 11/17/2024 have grown Staphylococcus epidermidis (same organism from blood cultures done on prior admission 10/05/2024). Blood cultures from 11/19/2024 are also growing Staphylococcus epidermidis. Blood cultures from 11/21/2024 are demonstrating no growth thus far. Previously a transesophageal echo 10/09/2024 demonstrated no evidence of valvular vegetation. He underwent a repeat MYKE on 11/20/2024 demonstrating a 0.4 x 0.8 cm linear mobile vegetation on the anterior mitral valve leaflet, consistent with SBE. Prosthetic aortic valve demonstrated thickened leaflets, but no evidence of perforation, deterioration, or mobile/oscillating vegetation. There was trace central-valvular aortic insufficiency only. There was no evidence of clear perivalvular abscess, or valve motion to suggest dehiscence. He offers no orthopnea, PND, chest pain or other cardiac symptoms. The patient had recurrent fever up to 101.1 last night 11/22/2024. Leukocytosis has improved to a white count of 8.[address] angiogram demonstrated no definitive evidence of rodrigo-aortic valvular abscess, but review of the MYKE from 11/20/2024, and his clinical course suggest a perivalvular aortic abscess extending to the aorto mitral curtain and onto the anterior leaflet of the mitral valve. Physical Examination: GENERAL: No acute distress. HEAD: Normal with no signs of head trauma. EYES: PERRLA, EOMI, conjunctiva and sclera normal. NECK: Supple without JVD. There is no tenderness, lymphadenopathy, or masses. No thyromegaly. Normal carotid upstrokes without bruits. LUNGS: Clear breath sounds bilaterally. No wheezes, or rhonchi. HEART: Normal rate and rhythm. Normal S1 and S2 there is a 2/6 mid peaking s ystolic ejection murmur louder at the left midsternal border. There is no diastolic murmur audible. There is no MR murmur audible. VASC: Peripheral pulses +2 bilaterally. EXT: No clubbing, cyanosis or edema. NEURO: Awake, alert, and oriented x3. No focal neurological deficits noted. Laboratory: Hematology Labs: Test 11/23/24 05:17 Range/Units White Blood Count 8.3 4.8-10.8 K/uL Red Blood Count 2.97 L 4.50-6.20 MIL/uL Hemoglobin 9.2 L 14.0-18.0 g/dL Hematocrit 27.8 L 42-54 % Mean Corpuscular Volume 93.6 79-99 fL Mean Corpuscular Hemoglobin 31.0 27.0-33.0 pg Mean Corpuscular Hemoglobin Concent 33.1 32.0-36.0 g/dL Red Cell Distribution Width 14.6 11.0-15.5 % Platelet Count 108 L 130-400 K/uL Mean Platelet Volume 10.5 7.5-10.5 fL Immature Granulocyte % (Auto) 0.5 0-1 % Neutrophils (%) (Auto) 73.9 40.0-77.0 % Lymphocytes (%) (Auto) 13.7 L 21.0-51.0 % Monocytes (%) (Auto) 8.5 3.0-13.0 % Eosinophils (%) (Auto) 2.9 0.0-8.0 % Basophils (%) (Auto) 0.5 0.0-5.0 % Neutrophils # (Auto) 6.1 1.8-7.7 K/uL Lymphocytes # (Auto) 1.1 1.0-4.8 K/uL Monocytes # (Auto) 0.7 0.1-1.0 K/uL Eosinophils # (Auto) 0.24 0.00-0.70 K/uL Basophils # (Auto) 0.04 0.00-0.20 K/uL Absolute Immature Granulocyte (auto 0.04 0-1 K/uL Nucleated Red Blood Cells 0.0 0.0-0.19 % Chemistry Labs: Test 11/23/24 05:28 11/23/24 05:17 11/22/24 14:50 Range/Units Whole Blood Glucose 137 H 70-110 MG/DL Sodium Level 136 136-145 mmol/L Potassium Level 3.9 3.5-5.1 mmol/L Chloride Level 102 101-111 mmol/L Carbon Dioxide Level 29 21-32 mmol/L Blood Urea Nitrogen 7 7-18 mg/dL Creatinine 0.8 0.5-1.3 mg/dL Glomerular Filtration Rate Calc 94 >90 mL/min Random Glucose 159 H 70-105 mg/dL Total Calcium 8.3 L 8.5-10.1 mg/dL Total Bilirubin 0.7 0.2-1.0 mg/dL Aspartate Amino Transf (AST/SGOT) 20 10-37 U/L Alanine Aminotransferase (ALT/SGPT) 18 12-78 U/L Alkaline Phosphatase 71 50-136 U/L Total Protein 5.8 L 6.0-8.3 g/dL Albumin 2.0 L 3.5-5.0 g/dL Magnesium Level 1.40 L 1.80-2.40 mg/dL Diagnostics / Radiology: 2D echocardiogram 11/18/2024: Conclusion LVEF is 55-60% with normal wall motion (volume measurements made by medical technician assistant are inaccurate). Stage I diastolic dysfunction with elevated mean LV filling pressure. The left atrium size is mildly dilated. Bioprosthetic aortic valve is present, probably a TAVR. Peak/Mean gradient 41/23 mmHg. Small perivalvular leak. Mitral regurgitation is mild. MYKE 11/20/2024: There was a 0.4 x 0.8 cm linear mobile vegetation on the anterior mitral valve leaflet, consistent with SBE. Prosthetic aortic valve demonstrates thickened leaflets, but no evidence of perforation, deterioration, or mobile or oscillating vegetation. There was trace central-valvular aortic insufficiency only. Repeat review of the MYKE suggests a perivalvular aortic abscess, extending down the aorta mitral curtain to the anterior mitral leaflet with a mitral leaflet vegetation. 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 Joaquim Rothman who will consult -white blood count has fallen from 15.8 on 11/19/2024 to 8.3 today, but he had a recurrent fever to 101.1 on 11/22/2024 at 8:00 p.m. -blood cultures 11/17/2024 and 11/19/2024 are again growing Staph epidermidis. Repeat blood cultures from 11/21/2024 demonstrate no growth thus far -CT of thoracic spine and lumbar spine demonstrated no apparent infectious process. There is fixation hardware in the lumbar spine. -if AVR as planned the patient will require repeat coronary angiography. Type [address] segment elevation [place], in the setting of sepsis, with troponin rising to 3303: Normal coronary arteries by prior cardiac catheterization 2017: Normal LVEF with an LVEF of 55-60% and normal wall motion on 2D echocardiogram 11/18/2024: -continue antiplatelet therapy and statin therapy Severe aortic stenosis status post minimally invasive aortic valve replacement with an extra-large Cristhian Jc bioprosthetic aortic valve 09/04/2016: -normal functioning bioprosthetic aortic valve by 2D echocardiogram 11/18/2024, and by transesophageal echo 11/20/2024. Comorbidities: C-spine myelomalacia Dementia MYKE 10/09/2024 demonstrated an LVEF of 45-50% and no valvular vegetations Hypertension Hyperlipidemia Type 2 diabetes mellitus JACOB FOLEY MD Nov 23, 2024 09:17
--- NOTE | 2024-11-23 09:41 | PN ---
[facility] PROGRESS NOTE Date of Service: Nov 23, 2024 Time of Service: 09:41 SUBJECTIVE: [ ] Mr. Bennett is a 74-year-old male that was seen and examined today on 11/17/2024. Patient is a poor historian and personal health due to past medical history of dementia. Patient's , Erma Thomas is at bedside. Patient says that patient came to the emergency department with a chief complaint of weakness. Onset was today at 5:00 p.m.. Location is to bilateral lower extremities. Duration is constant. Character is described as, "he was just sitting in the sofa all day and sleeping more than usual. There was no alleviating factors. There was no aggravating factors. Spouse reports associated fever and chills. 11/18/24 patient was seen earlier patient is lying in bed with family at bedside. Patient was discharged from LTAC for long-term IV antibiotics discharged home with oral antibiotics we will have ID on board. Patient denied chest pain or shortness for breath. 11/19/24 patient was seen patient denied chest pain shortness a breath. He complaints being constipated we will provide as needed lactulose. Patient waiting for CT lumbar spine examined to be done most likely on Wednesday. We will have Physical therapy work with patient as well. All questions and answers addressed appropriately. 11/20/2024 patient was seen earlier patient is lying in bed patient went for a MYKE this morning. We will follow-up results continues with triple antibiotics tolerating well cultures in process. Continues to work with physical therapy primary nurse reports no events overnight 11/21/2024 patient was seen earlier patient is lying in bed encourage out of bed to chair as tolerated. Continue with broad-spectrum antibiotics vancomycin Zosyn IV. 11/22/24 patient is seen and examined patient is lying in bed. Case management discharge planning LTAC patient is pending CT angio for abscess on valve. We will continue to monitor patient closely. 11/23/24 PATIENT IS SEEN AND EXAMINED PATIENT IS FULLY AWAKE ALERT ORIENTED X3.chest CT angiogram demonstrated no definitive evidence of rodrigo-aortic valvular abscess, DR. 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 REVIEW OF SYSTEMS CONSTITUTIONAL: Denies fevers, chills, or night sweats. No unintentional weight loss reported. NEUROLOGICAL: Denies headache, amaurosis fugax, motor weakness, sensory deficit, vertigo/spinning sensation, gait abnormalities, or tremors. ENT: No hearing loss, otalgia, otorrhea, rhinitis, rhinorrhea, hoarseness, or sore throat. CARDIOVASCULAR: Denies any exertional angina, dyspnea on exertion, orthopnea, paroxysmal nocturnal dyspnea, palpitations, life-threatening arrhythmias, claudication. PULMONARY: Denies any shortness of breath, cough, phlegm/sputum, hemoptysis, pleuritic chest pain. SLEEP: Denies morning headaches, daytime somnolence or napping. Denies difficulty falling asleep, staying asleep, waking from sleep. Denies knowledge of snoring. GASTROINTESTINAL: Denies any type of dysphagia to either liquids or solids. Denies nausea, vomiting, pyrosis, early satiety, abdominal pain, diarrhea, constipation, or changes in stool consistency or caliber. Denies coffee-ground emesis, hematemesis, hematochezia, or melanotic stools. GENITOURINARY: Denies frequency, urgency, nocturia, hematuria or incontinence (Storage/Irritative symptoms.) Low urinary stream, straining to void, urinary intermittency or hesitancy, splitting of the voiding stream, terminal dribbling. ENDOCRINOLOGIC: Denies polyuria, polydipsia, polyphagia or heat/cold intolerances. HEMATOLOGIC: Denies thrombophilia/previous clots, or coagulopathy/bleeding disorders. ONCOLOGIC: Denies personal history of malignancy. DERMATOLOGIC: Denies rashes or pruritus. PSYCHIATRIC: Denies any suicidal or homicidal ideation. Denies hallucinations. PHYSICAL EXAM GENERAL APPEARANCE: The patient is awake, alert, and oriented, in no acute cardiopulmonary distress. NEUROLOGICAL: Cranial nerves II-XII grossly intact. Motor is 5/5 in bilateral upper and lower extremities proximal to distal. No sensory deficits. HEENT: Face is symmetric. Pupils are equal and reactive. Extraocular movements are intact. NECK: Supple. No JVD. No thyromegaly. No submental, submandibular, pre- /postauricular, occipital or supraclavicular lymphadenopathy. CHEST: Normal chest expansion. No Telemetry. LUNGS: Absence of any rales, rhonchi or any wheezing. CARDIOVASCULAR: Regular. S1 and S2 normal. No appreciable rubs, murmurs or gallops. ABDOMEN: Soft, nontender, and nondistended. There is no rebound, voluntary guarding, or rigidity. : Deferred. No Emmanuel. EXTREMITIES: Non-edematous and not cyanotic. No clubbing. Good capillary refill. SKIN: No skin breakdown. Vital Signs (last 8hr) Date Time Temp Pulse Resp B/P (MAP) Pulse Ox O2 Delivery O2 Flow Rate FiO2 11/23/24 07:52 98.2 104 18 134/71 97 Nasal Cannula 2.0 11/23/24 03:48 98.2 82 18 135/60 97 Nasal Cannula 2.0 24 LABS: Laboratory: Test 11/23/24 05:28 11/23/24 05:17 11/22/24 14:50 Range/Units Whole Blood Glucose 137 H 70-110 MG/DL White Blood Count 8.3 4.8-10.8 K/uL Red Blood Count 2.97 L 4.50-6.20 MIL/uL Hemoglobin 9.2 L 14.0-18.0 g/dL Hematocrit 27.8 L 42-54 % Mean Corpuscular Volume 93.6 79-99 fL Mean Corpuscular Hemoglobin 31.0 27.0-33.0 pg Mean Corpuscular Hemoglobin Concent 33.1 32.0-36.0 g/dL Red Cell Distribution Width 14.6 11.0-15.5 % Platelet Count 108 L 130-400 K/uL Mean Platelet Volume 10.5 7.5-10.5 fL Immature Granulocyte % (Auto) 0.5 0-1 % Neutrophils (%) (Auto) 73.9 40.0-77.0 % Lymphocytes (%) (Auto) 13.7 L 21.0-51.0 % Monocytes (%) (Auto) 8.5 3.0-13.0 % Eosinophils (%) (Auto) 2.9 0.0-8.0 % Basophils (%) (Auto) 0.5 0.0-5.0 % Neutrophils # (Auto) 6.1 1.8-7.7 K/uL Lymphocytes # (Auto) 1.1 1.0-4.8 K/uL Monocytes # (Auto) 0.7 0.1-1.0 K/uL Eosinophils # (Auto) 0.24 0.00-0.70 K/uL Basophils # (Auto) 0.04 0.00-0.20 K/uL Absolute Immature Granulocyte (auto 0.04 0-1 K/uL Nucleated Red Blood Cells 0.0 0.0-0.19 % Sodium Level 136 136-145 mmol/L Potassium Level 3.9 3.5-5.1 mmol/L Chloride Level 102 101-111 mmol/L Carbon Dioxide Level 29 21-32 mmol/L Blood Urea Nitrogen 7 7-18 mg/dL Creatinine 0.8 0.5-1.3 mg/dL Glomerular Filtration Rate Calc 94 >90 mL/min Random Glucose 159 H 70-105 mg/dL Total Calcium 8.3 L 8.5-10.1 mg/dL Total Bilirubin 0.7 0.2-1.0 mg/dL Aspartate Amino Transf (AST/SGOT) 20 10-37 U/L Alanine Aminotransferase (ALT/SGPT) 18 12-78 U/L Alkaline Phosphatase 71 50-136 U/L Total Protein 5.8 L 6.0-8.3 g/dL Albumin 2.0 L 3.5-5.0 g/dL Magnesium Level 1.40 L 1.80-2.40 mg/dL Current Medications Medications (Trade) Dose Ordered Sig/Ann Marie Route PRN Reason Start Time Stop Time Status Last Admin Dose Admin Acetaminophen (TYLenol 325MG TAB) 650 mg Q6H PRN PO TEMPERATURE GREATER THAN 101.5 11/17/24 22:00 12/17/24 21:59 11/22/24 20:33 650 MG Aspirin (Aspirin 81mg Ec Tab) 81 mg DAILY PO 11/18/24 09:00 11/18/24 14:00 DC 11/18/24 09:48 81 MG Aspirin (Aspirin 81mg Ec Tab) 81 mg DAILY PO 11/19/24 09:00 12/19/24 08:59 11/23/24 08:07 81 MG Atorvastatin Calcium (LIPItor 40MG) 40 mg HS PO 11/18/24 21:00 12/18/24 20:59 11/22/24 20:32 40 MG Donepezil HCl (ARIcept 5MG TAB) 5 mg HS PO 11/18/24 21:00 12/18/24 20:59 11/22/24 20:32 5 MG Doxycycline Hyclate (Doxycycline Hyclate) 100 mg Q12H PO 11/18/24 12:00 11/20/24 13:14 DC 11/19/24 22:59 100 MG Enoxaparin Sodium (Lovenox) 40 mg DAILY SQ 11/18/24 09:00 11/18/24 01:27 DC Famotidine (Pepcid 20mg Tab) 20 mg DAILY PO 11/18/24 09:00 12/18/24 08:59 11/23/24 08:07 20 MG Gabapentin (NEURontin 300 MG CAP) 300 mg BID PO 11/18/24 21:00 12/18/24 20:59 11/23/24 08:07 300 MG Home Med (Home Medication) BID OP 11/18/24 21:00 12/18/24 20:59 Hydralazine HCl (APRESOLine 20MG INJ) 10 mg Q6H PRN IV For:SBP above 160;DBP above 90 11/17/24 22:00 12/17/24 21:59 Insulin Human Regular (humuLIN R 100 UNIT/ML 3ML) INSULIN SLIDING SCAL... ACHS SQ 11/18/24 07:30 12/18/24 07:29 11/22/24 20:34 3 UNIT Magnesium Sulfate 50 ml @ 0 mls/hr PROTOCOL PRN IV RX MONITORING LEVELS & DOSING 11/17/24 23:00 11/18/24 01:30 DC 11/18/24 00:22 25 MLS/HR Magnesium Sulfate 50 ml @ 0 mls/hr PROTOCOL PRN IV h 11/18/24 01:30 12/18/24 01:29 11/22/24 15:43 25 MLS/HR Morphine Sulfate (morPHINE 2MG SYG) 2 mg Q4H PRN IVP SEVERE PAIN (7-10) 11/17/24 22:00 11/23/24 00:59 DC Nitroglycerin (Nitrostat) 0.4 mg PROTOCOL PRN SL CHEST PAIN 11/17/24 22:00 12/17/24 21:59 Ondansetron HCl (zoFRAN 4MG INJ) 4 mg Q6H PRN IV NAUSEA/VOMITING 11/17/24 22:00 12/17/24 21:59 11/18/24 20:20 4 MG Pharmacy Profile Note (Pharmacy Communication) 1 each ONCE MISC 11/20/24 12:30 11/20/24 12:16 DC Piperacillin Sod/ Tazobactam Sod (Zosyn 3.375gm+NS 50ml) 3.375 gm Q8H IV 11/18/24 05:00 11/22/24 10:54 DC 11/22/24 05:35 3.375 GM Potassium Chloride 100 ml @ 100 mls/hr AD PRN IV POTASSIUM PROTOCOL 11/18/24 01:30 12/18/24 01:29 Potassium Chloride (K-Dur/Klor-Con 20meq) 20 meq AD PRN PO POTASSIUM PROTOCOL 11/18/24 01:30 12/18/24 01:29 11/22/24 17:43 20 MEQ Potassium Chloride (KCl 10% Elixir 20meq/15ml) 20 meq AD PRN PO POTASSIUM PROTOCOL 11/18/24 01:30 12/18/24 01:29 Rifampin (riFADin 300 MG CAP) 300 mg BID PO 11/20/24 21:00 11/30/24 20:59 11/23/24 08:07 300 MG Vancomycin HCl 250 ml @ 83.333 mls/ hr Q24H IV 11/20/24 22:00 11/30/24 21:59 11/22/24 21:44 83.333 MLS/HR Vancomycin HCl 250 ml @ 125 mls/hr Q24H IV 11/18/24 22:00 11/20/24 21:14 DC 11/19/24 21:20 125 MLS/HR Vancomycin HCl (Vancomycin Protocol) 1 each AD IV 11/17/24 21:30 11/20/24 13:14 DC DIAGNOSTICS / RADIOLOGY: [ ] ASSESSMENT: 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 [ ] Admit: Medical-surgical floor condition: Guarded Status: Full code IVF: hannah Consultants infectious disease, health administrator's CV Antibiotics: Vancomycin IV, and Zosyn rifampin 300mg BID Microbiology repeat cultures pending growing positive cocci. Imaging CT angio for abscess on value Case management for LTAC Labs cbc, cmp, mag+ Replace electrolytes as needed as per protocol to keep potassium above 4.0 magnesium 2.0. PT services out of bed to chair as tolerated Pain management: Morphine as needed Supportive measures: DVT ppx, GI ppx all questions answered Supervising MD: Dr. Mona Mayers c/d This document was generated in part using voice recognition software, occasional wrong word or sound alike substitutions may have occurred due to the inherent limitations of voice recognition software. Read the chart carefully and recognize using context, where the substitutions have occurred. Although every effort was made to edit the content, laboratory equipment installer and typing errors may occur ATTESTATION BY PHYSICIAN I have seen and examined the patient. I reviewed the documentation, medical decision making, and treatment plan as noted by the mid-level provider above. I agree with the findings and plan of care. Brittany Dunn MD, ELIZABETH NP Nov 23, 2024 09:41
--- NOTE | 2024-11-23 11:15 | NUR ---
DC PLAN NAHID SPOKE TO DINA DANIEL NP AND DR. VARGAS. DR Pritchett SAID CANCEL PEER TO PEER AND REFERRAL. SAID HE SPOKE TO CARDIO THEY FEEL PATIENT HAS A ABSCESS WILL POSSIBLY NEED SURGERY. DR Pritchett WILL LET NAHID KNOW ONCE READY FOR REFERRAL TO LTAC. NAHID XIONG [facility] SAID WILL CANCEL REFERRAL. Addendum: 11/23/24 at 1124 by JULIANN DELGADO RN CM Amended: Links added.
[2024-11-23 11:18] VITALS: BP 104/54; PULSE 97; RESP 19; TEMP 98.8
--- NOTE | 2024-11-23 14:31 | PN ---
INFECTIOUS DISEASE PROGRESS NOTE Date of Service: Nov 23, 2024 SUBJECTIVE: This 74 year old male patient is being seen today at bedside. No fever or chills. No nausea or vomiting. Patient remains on antibiotics. Denies chest pain or shortness of breath. 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 Went over plan of care with and patient at bedside. We continue with a ntibiotics. PHYSICAL EXAM EYES: Anicteric. Pupils equal and reactive. HENT: No oral thrush seen, moist Oral mucosa NECK: Supple, no JVD or thyromegaly. LUNGS: Good air entry. No rales, no rhonchi. CARDIOVASCULAR: S1, S2 regular. No murmur heard. ABDOMEN: Soft, non tender, bowel sounds present, no organomegaly CENTRAL NERVOUS SYSTEM: Awake, alert, oriented x 3. No focal deficits. SKIN: No rashes, no swelling. LYMPHATICS: No peripheral lymphadenopathy MUSCULOSKELETAL: No joint swelling, erythema or tenderness. EXTREMITIES: No cyanosis or clubbing BACK: No deformity, no pressure ulcer. GENITOURINARY: No dysuria or hematuria Vital Sign (Last 12 Hours) 11/23/24 11/23/24 11/23/24 11/23/24 03:48 07:52 08:07 11:18 Temp 98.2 98.2 98.8 Pulse 82 104 97 Resp 18 18 19 B/P (MAP) 135/60 134/71 104/54 Pulse Ox 97 97 97 99 O2 Delivery Nasal Cannula Nasal Cannula Nasal Cannula* Nasal Cannula O2 Flow Rate 2.0 2.0 2 2.0 FiO2 24 28 Intake & Output (last 24hrs) 11/22/24 11/22/24 11/23/24 15:00 23:00 07:00 Intake Total 480 ml 480 ml Balance 480 ml 480 ml LABS: Laboratory: Test 11/23/24 10:37 11/23/24 05:17 11/22/24 14:50 Range/Units Whole Blood Glucose 176 H 70-110 MG/DL White Blood Count 8.3 4.8-10.8 K/uL Red Blood Count 2.97 L 4.50-6.20 MIL/uL Hemoglobin 9.2 L 14.0-18.0 g/dL Hematocrit 27.8 L 42-54 % Mean Corpuscular Volume 93.6 79-99 fL Mean Corpuscular Hemoglobin 31.0 27.0-33.0 pg Mean Corpuscular Hemoglobin Concent 33.1 32.0-36.0 g/dL Red Cell Distribution Width 14.6 11.0-15.5 % Platelet Count 108 L 130-400 K/uL Mean Platelet Volume 10.5 7.5-10.5 fL Immature Granulocyte % (Auto) 0.5 0-1 % Neutrophils (%) (Auto) 73.9 40.0-77.0 % Lymphocytes (%) (Auto) 13.7 L 21.0-51.0 % Monocytes (%) (Auto) 8.5 3.0-13.0 % Eosinophils (%) (Auto) 2.9 0.0-8.0 % Basophils (%) (Auto) 0.5 0.0-5.0 % Neutrophils # (Auto) 6.1 1.8-7.7 K/uL Lymphocytes # (Auto) 1.1 1.0-4.8 K/uL Monocytes # (Auto) 0.7 0.1-1.0 K/uL Eosinophils # (Auto) 0.24 0.00-0.70 K/uL Basophils # (Auto) 0.04 0.00-0.20 K/uL Absolute Immature Granulocyte (auto 0.04 0-1 K/uL Nucleated Red Blood Cells 0.0 0.0-0.19 % Sodium Level 136 136-145 mmol/L Potassium Level 3.9 3.5-5.1 mmol/L Chloride Level 102 101-111 mmol/L Carbon Dioxide Level 29 21-32 mmol/L Blood Urea Nitrogen 7 7-18 mg/dL Creatinine 0.8 0.5-1.3 mg/dL Glomerular Filtration Rate Calc 94 >90 mL/min Random Glucose 159 H 70-105 mg/dL Total Calcium 8.3 L 8.5-10.1 mg/dL Total Bilirubin 0.7 0.2-1.0 mg/dL Aspartate Amino Transf (AST/SGOT) 20 10-37 U/L Alanine Aminotransferase (ALT/SGPT) 18 12-78 U/L Alkaline Phosphatase 71 50-136 U/L Total Protein 5.8 L 6.0-8.3 g/dL Albumin 2.0 L 3.5-5.0 g/dL Magnesium Level 1.40 L 1.80-2.40 mg/dL DIAGNOSTICS / RADIOLOGY: SPEC: [id number] MICHELLE: 11/17/24 STATUS: COMP REQ: [id number] RECD: 11/18/[address] [facility] [address]: SIMA MATTHEWS SOURCE: BLOOD ENTR: 11/18/24-[address] [facility] [address]: SAM FIGUEROA PA-C [facility]: BLOOD NONE ORDERED: AERO ID & SENS Procedure Result Jose Alejandro Date-Time - AEROBIC ID & SENSITIVITIES Final 11/21/24-0616 [facility] DESCRIPTION: DAY 1: GRAM POSITIVE COCCI IN CLUSTERS COAGULASE NEGATIVE STAPHYLOCOCCUS AEROBIC AND ANAEROBIC BOTTLES IDENTIFICATION AND SENSITIVITY TO FOLLOW STAPHYLOCOCCUS EPIDERMIDIS ROBERTO CASTELLANO M.I.CStef RX --------- ---- CLINDAMYCIN <=0.25 S ERYTHROMYCIN >4 R GENTAMICIN <=4 S VANCOMYCIN 1 S OXACILLIN AMRITA >2 R RIFAMPIN <=1 S TETRACYCLINE <=4 S TRIMETHOPRIM/SUFLAMETHOXAZOLE 2/38 S @ [facility] Test Performed at: [facility] [address], [place], [place] [employer] Contacts Adjuster: Joaquim Izquierdo D.O. ASSESSMENT: * Sepsis. * Diabetes mellitus. * NSTEMI. * Thrombocytopenia. * Hypertension. * Debility. * Gram positive bacteremia PLAN: * Continue antihypertensive. * continue antidiabetic. * Continue nutritional support. * Monitor electrolytes and correct as needed. * continue vancomycin as per pharmacy protocol * Continue rifampin 300mg BID * patient will need a total of 6 weeks of antibiotics * Case management to Referral to [facility] * Follow up with blood cultures * Continue with Gentamycin IV, This case has been discussed with my supervising physician Dr. Montoya. The case has been discussed and agreed upon. ALBA CHAVARRIA [facility] Nov 23, 2024 14:31
[2024-11-23 16:02] VITALS: BP 125/61; PULSE 95; RESP 18; TEMP 100
[2024-11-23 20:00] VITALS: BP 119/62; PULSE 94; RESP 20; TEMP 99.7
[2024-11-23] MEDS: VANCOMYCIN 1.75 GM/250 ML BAG 250 ML IV SCH (22:14)
[2024-11-24] VITALS (7 sets, daily range): BP systolic 96–136; BP diastolic 49–63; PULSE 85–100; RESP 16–19; TEMP 98.2–100.5; O2SAT 97
--- NOTE | 2024-11-24 08:27 | PN ---
[facility] CARDIOLOGY PROGRESS NOTE Date Patient Seen: Nov 24, 2024 Time of Visit: 08:21 Interval History: This is a 74-year-old [place] male with a past medical history of severe aortic stenosis status post minimally invasive aortic valve replacement with an extra-large Cristhian Jc bioprosthetic aortic valve 09/04/2016, essentially normal coronary arteries by prior cardiac catheterization 08/19/2016, hyperlipidemia, hypertension, type 2 diabetes mellitus who was admitted for management of recurrent sepsis. He presented with generalized body weakness, fever and diarrhea onset 48 hours prior to admission. He had been managed at [facility] recently for bacteremia and was discharge 10/30/2024, his reporting that he had recurrent fevers beginning one week after discharge from [facility] (he was admitted here 10/05/2024 through 10/15/2024 with bacteremia and a MYKE on 10/09/2024 demonstrated no evidence of valvular vegetation). On admission he did have a temperature of 101. The patient did have evidence of elevated troponin with admission troponin of 350, rising to 3303 on 11/18/2024 and trending down. He underwent a 2D echocardiogram on 11/18/2024 demonstrated normal LVEF of 55- 60%, mild concentric LVH and stage I diastolic dysfunction. The bioprosthetic aortic valve was noted with peak aortic valve gradient of 41 mmHg, mean aortic valve gradient of 23 mmHg and dimensionless index of 1.42 and small perivalvular leak. Blood cultures from 11/17/2024 have grown Staphylococcus epidermidis (same organism from blood cultures done on prior admission 10/05/2024). Blood cultures from 11/19/2024 are also growing Staphylococcus epidermidis. Blood cultures from 11/21/2024 and 11/22/2024 are demonstrating no growth thus far. Previously a transesophageal echo 10/09/2024 demonstrated no evidence of valvular vegetation. He underwent a repeat MYKE on 11/20/2024 demonstrating a 0.4 x 0.8 cm linear m obile vegetation on the anterior mitral valve leaflet, consistent with SBE. Prosthetic aortic valve demonstrated thickened leaflets, but no evidence of perforation, deterioration, or mobile/oscillating vegetation. There was trace central-valvular aortic insufficiency only. There was no evidence of clear perivalvular abscess, or valve motion to suggest dehiscence. He offers no orthopnea, PND, chest pain or other cardiac symptoms. The patient had recurrent fever up to 100.6 this morning. Leukocytosis has improved to a white count of 8.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 Physical Examination: GENERAL: No acute distress. HEAD: Normal with no signs of head trauma. EYES: PERRLA, EOMI, conjunctiva and sclera normal. NECK: Supple without JVD. There is no tenderness, lymphadenopathy, or masses. No thyromegaly. Normal carotid upstrokes without bruits. LUNGS: Clear breath sounds bilaterally. No wheezes, or rhonchi. HEART: Normal rate and rhythm. Normal S1 and S2 there is a 2/6 mid peaking systolic ejection murmur louder at the left midsternal border. There is no diastolic murmur audible. There is no MR murmur audible. VASC: Peripheral pulses +2 bilaterally. EXT: No clubbing, cyanosis or edema. NEURO: Awake, alert, and oriented x3. No focal neurological deficits noted. Laboratory: Hematology Labs: Test 11/23/24 05:17 Range/Units White Blood Count 8.3 4.8-10.8 K/uL Red Blood Count 2.97 L 4.50-6.20 MIL/uL Hemoglobin 9.2 L 14.0-18.0 g/dL Hematocrit 27.8 L 42-54 % Mean Corpuscular Volume 93.6 79-99 fL Mean Corpuscular Hemoglobin 31.0 27.0-33.0 pg Mean Corpuscular Hemoglobin Concent 33.1 32.0-36.0 g/dL Red Cell Distribution Width 14.6 11.0-15.5 % Platelet Count 108 L 130-400 K/uL Mean Platelet Volume 10.5 7.5-10.5 fL Immature Granulocyte % (Auto) 0.5 0-1 % Neutrophils (%) (Auto) 73.9 40.0-77.0 % Lymphocytes (%) (Auto) 13.7 L 21.0-51.0 % Monocytes (%) (Auto) 8.5 3.0-13.0 % Eosinophils (%) (Auto) 2.9 0.0-8.0 % Basophils (%) (Auto) 0.5 0.0-5.0 % Neutrophils # (Auto) 6.1 1.8-7.7 K/uL Lymphocytes # (Auto) 1.1 1.0-4.8 K/uL Monocytes # (Auto) 0.7 0.1-1.0 K/uL Eosinophils # (Auto) 0.24 0.00-0.70 K/uL Basophils # (Auto) 0.04 0.00-0.20 K/uL Absolute Immature Granulocyte (auto 0.04 0-1 K/uL Nucleated Red Blood Cells 0.0 0.0-0.19 % Chemistry Labs: Test 11/24/24 05:49 11/23/24 05:17 11/22/24 14:50 Range/Units Whole Blood Glucose 180 H 70-110 MG/DL Sodium Level 136 136-145 mmol/L Potassium Level 3.9 3.5-5.1 mmol/L Chloride Level 102 101-111 mmol/L Carbon Dioxide Level 29 21-32 mmol/L Blood Urea Nitrogen 7 7-18 mg/dL Creatinine 0.8 0.5-1.3 mg/dL Glomerular Filtration Rate Calc 94 >90 mL/min Random Glucose 159 H 70-105 mg/dL Total Calcium 8.3 L 8.5-10.1 mg/dL Total Bilirubin 0.7 0.2-1.0 mg/dL Aspartate Amino Transf (AST/SGOT) 20 10-37 U/L Alanine Aminotransferase (ALT/SGPT) 18 12-78 U/L Alkaline Phosphatase 71 50-136 U/L Total Protein 5.8 L 6.0-8.3 g/dL Albumin 2.0 L 3.5-5.0 g/dL Magnesium Level 1.40 L 1.80-2.40 mg/dL Diagnostics / Radiology: 2D echocardiogram 11/18/2024: Conclusion LVEF is 55-60% with normal wall motion (volume measurements made by fingernail technician are inaccurate). Stage I diastolic dysfunction with elevated mean LV filling pressure. The left atrium size is mildly dilated. Bioprosthetic aortic valve is present, probably a TAVR. Peak/Mean gradient 41/23 mmHg. Small perivalvular leak. Mitral regurgitation is mild. MYKE 11/20/2024: There was a 0.4 x 0.8 cm linear mobile vegetation on the anterior mitral valve leaflet, consistent with SBE. Prosthetic aortic valve demonstrates thickened leaflets, but no evidence of perforation, deterioration, or mobile or oscillating vegetation. There was trace central-valvular aortic insufficiency only. Repeat review of the MYKE suggests a perivalvular aortic abscess, extending down the aorta mitral curtain to the anterior mitral leaflet with a mitral leaflet vegetation. 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 Joaquim Rothman -white blood count has fallen from 15.8 on 11/19/2024 to 8.3 yesterday, but he had a recurrent fever to 100.6 this AM -blood cultures 11/17/2024 and 11/19/2024 are again growing Staph epidermidis. Repeat blood cultures from 11/21/2024 and 11/22/2024 demonstrate no growth thus far -CT of thoracic spine and lumbar spine demonstrated no apparent infectious process. There is fixation hardware in the lumbar spine. -if AVR as planned the patient will require repeat coronary angiography. Type [address] segment elevation [place], in the setting of sepsis, with troponin rising to 3303: Normal coronary arteries by prior cardiac catheterization 2017: Normal LVEF with an LVEF of 55-60% and normal wall motion on 2D echocardiogram 11/18/2024: -continue antiplatelet therapy and statin therapy Severe aortic stenosis status post minimally invasive aortic valve replacement with an extra-large Cristhian Jc bioprosthetic aortic valve 09/04/2016: -normal functioning bioprosthetic aortic valve by 2D echocardiogram 11/18/2024, and by transesophageal echo 11/20/2024. Comorbidities: C-spine myelomalacia Dementia MYKE 10/09/2024 demonstrated an LVEF of 45-50% and no valvular vegetations Hypertension Hyperlipidemia Type 2 diabetes mellitus MJ AGUILERA Nov 24, 2024 08:27
--- NOTE | 2024-11-24 11:29 | PN ---
[facility] PROGRESS NOTE Date of Service: Nov 24, 2024 Time of Service: 11:25 SUBJECTIVE: [ ] Mr. Bennett is a 74-year-old male that was seen and examined today on 11/17/2024. Patient is a poor historian and personal health due to past medical history of dementia. Patient's , Erma Thomas is at bedside. Patient says that patient came to the emergency department with a chief complaint of weakness. Onset was today at 5:00 p.m.. Location is to bilateral lower extremities. Duration is constant. Character is described as, "he was just sitting in the sofa all day and sleeping more than usual. There was no alleviating factors. There was no aggravating factors. Spouse reports associated fever and chills. 11/18/24 patient was seen earlier patient is lying in bed with family at bedside. Patient was discharged from LTAC for long-term IV antibiotics discharged home with oral antibiotics we will have ID on board. Patient denied chest pain or shortness for breath. 11/19/24 patient was seen patient denied chest pain shortness a breath. He complaints being constipated we will provide as needed lactulose. Patient waiting for CT lumbar spine examined to be done most likely on Wednesday. We will have Physical therapy work with patient as well. All questions and answers addressed appropriately. 11/20/2024 patient was seen earlier patient is lying in bed patient went for a MYKE this morning. We will follow-up results continues with triple antibiotics tolerating well cultures in process. Continues to work with physical therapy primary nurse reports no events overnight 11/21/2024 patient was seen earlier patient is lying in bed encourage out of bed to chair as tolerated. Continue with broad-spectrum antibiotics vancomycin Zosyn IV. 11/22/24 patient is seen and examined patient is lying in bed. Case management discharge planning LTAC patient is pending CT angio for abscess on valve. We will continue to monitor patient closely. 11/23/24 PATIENT IS SEEN AND EXAMINED PATIENT IS FULLY AWAKE ALERT ORIENTED X3.chest CT angiogram demonstrated no definitive evidence of rodrigo-aortic valvular abscess, DR. King (marine resource economist) reviewed his previous MYKE from 11/20/2024, and his clinical course suggest a perivalvular aortic abscess extending to the aorto mitral curtain and onto the anterior leaflet of the mitral valve. 11/24/24 patient was working with physical therapy ambulate with walker with assist. Patient will remain sitting in recliner as tolerated. Waiting for CV recommendations. Patient denied chest pain or shortness for breath patient reports having difficulty sleeping yesterday REVIEW OF SYSTEMS CONSTITUTIONAL: Denies fevers, chills, or night sweats. No unintentional weight loss reported. NEUROLOGICAL: Denies headache, amaurosis fugax, motor weakness, sensory deficit, vertigo/spinning sensation, gait abnormalities, or tremors. ENT: No hearing loss, otalgia, otorrhea, rhinitis, rhinorrhea, hoarseness, or sore throat. CARDIOVASCULAR: Denies any exertional angina, dyspnea on exertion, orthopnea, paroxysmal nocturnal dyspnea, palpitations, life-threatening arrhythmias, claudication. PULMONARY: Denies any shortness of breath, cough, phlegm/sputum, hemoptysis, pleuritic chest pain. SLEEP: Denies morning headaches, daytime somnolence or napping. Denies difficulty falling asleep, staying asleep, waking from sleep. Denies knowledge of snoring. GASTROINTESTINAL: Denies any type of dysphagia to either liquids or solids. Denies nausea, vomiting, pyrosis, early satiety, abdominal pain, diarrhea, constipation, or changes in stool consistency or caliber. Denies coffee-ground emesis, hematemesis, hematochezia, or melanotic stools. GENITOURINARY: Denies frequency, urgency, nocturia, hematuria or incontinence (Storage/Irritative symptoms.) Low urinary stream, straining to void, urinary intermittency or hesitancy, splitting of the voiding stream, terminal dribbling. ENDOCRINOLOGIC: Denies polyuria, polydipsia, polyphagia or heat/cold intolerances. HEMATOLOGIC: Denies thrombophilia/previous clots, or coagulopathy/bleeding disorders. ONCOLOGIC: Denies personal history of malignancy. DERMATOLOGIC: Denies rashes or pruritus. PSYCHIATRIC: Denies any suicidal or homicidal ideation. Denies hallucinations. PHYSICAL EXAM GENERAL APPEARANCE: The patient is awake, alert, and oriented, in no acute cardiopulmonary distress. NEUROLOGICAL: Cranial nerves II-XII grossly intact. Motor is 5/5 in bilateral upper and lower extremities proximal to distal. No sensory deficits. HEENT: Face is symmetric. Pupils are equal and reactive. Extraocular movements are intact. NECK: Supple. No JVD. No thyromegaly. No submental, submandibular, pre- /postauricular, occipital or supraclavicular lymphadenopathy. CHEST: Normal chest expansion. No Telemetry. LUNGS: Absence of any rales, rhonchi or any wheezing. CARDIOVASCULAR: Regular. S1 and S2 normal. No appreciable rubs, murmurs or gallops. ABDOMEN: Soft, nontender, and nondistended. There is no rebound, voluntary guarding, or rigidity. : Deferred. No Emmanuel. EXTREMITIES: Non-edematous and not cyanotic. No clubbing. Good capillary refill. SKIN: No skin breakdown. Vital Signs (last 8hr) Date Time Temp Pulse Resp B/P (MAP) Pulse Ox O2 Delivery O2 Flow Rate FiO2 11/24/24 07:54 98.2 85 16 106/49 97 Nasal Cannula 2.0 11/24/24 04:00 100.6 91 19 114/63 98 Room Air LABS: Laboratory: Test 11/24/24 10:32 11/23/24 21:09 11/23/24 05:17 11/22/24 14:50 Range/Units Whole Blood Glucose 190 H 70-110 MG/DL Vancomycin Level Trough 13.4 # 10.0-20.0 UG/ML White Blood Count 8.3 4.8-10.8 K/uL Red Blood Count 2.97 L 4.50-6.20 MIL/uL Hemoglobin 9.2 L 14.0-18.0 g/dL Hematocrit 27.8 L 42-54 % Mean Corpuscular Volume 93.6 79-99 fL Mean Corpuscular Hemoglobin 31.0 27.0-33.0 pg Mean Corpuscular Hemoglobin Concent 33.1 32.0-36.0 g/dL Red Cell Distribution Width 14.6 11.0-15.5 % Platelet Count 108 L 130-400 K/uL Mean Platelet Volume 10.5 7.5-10.5 fL Immature Granulocyte % (Auto) 0.5 0-1 % Neutrophils (%) (Auto) 73.9 40.0-77.0 % Lymphocytes (%) (Auto) 13.7 L 21.0-51.0 % Monocytes (%) (Auto) 8.5 3.0-13.0 % Eosinophils (%) (Auto) 2.9 0.0-8.0 % Basophils (%) (Auto) 0.5 0.0-5.0 % Neutrophils # (Auto) 6.1 1.8-7.7 K/uL Lymphocytes # (Auto) 1.1 1.0-4.8 K/uL Monocytes # (Auto) 0.7 0.1-1.0 K/uL Eosinophils # (Auto) 0.24 0.00-0.70 K/uL Basophils # (Auto) 0.04 0.00-0.20 K/uL Absolute Immature Granulocyte (auto 0.04 0-1 K/uL Nucleated Red Blood Cells 0.0 0.0-0.19 % Sodium Level 136 136-145 mmol/L Potassium Level 3.9 3.5-5.1 mmol/L Chloride Level 102 101-111 mmol/L Carbon Dioxide Level 29 21-32 mmol/L Blood Urea Nitrogen 7 7-18 mg/dL Creatinine 0.8 0.5-1.3 mg/dL Glomerular Filtration Rate Calc 94 >90 mL/min Random Glucose 159 H 70-105 mg/dL Total Calcium 8.3 L 8.5-10.1 mg/dL Total Bilirubin 0.7 0.2-1.0 mg/dL Aspartate Amino Transf (AST/SGOT) 20 10-37 U/L Alanine Aminotransferase (ALT/SGPT) 18 12-78 U/L Alkaline Phosphatase 71 50-136 U/L Total Protein 5.8 L 6.0-8.3 g/dL Albumin 2.0 L 3.5-5.0 g/dL Magnesium Level 1.40 L 1.80-2.40 mg/dL Current Medications Medications (Trade) Dose Ordered Sig/Ann Marie Route PRN Reason Start Time Stop Time Status Last Admin Dose Admin Acetaminophen (TYLenol 325MG TAB) 650 mg Q6H PRN PO TEMPERATURE GREATER THAN 101.5 11/17/24 22:00 12/17/24 21:59 11/22/24 20:33 650 MG Aspirin (Aspirin 81mg Ec Tab) 81 mg DAILY PO 11/18/24 09:00 11/18/24 14:00 DC 11/18/24 09:48 81 MG Aspirin (Aspirin 81mg Ec Tab) 81 mg DAILY PO 11/19/24 09:00 12/19/24 08:59 11/24/24 09:37 81 MG Atorvastatin Calcium (LIPItor 40MG) 40 mg HS PO 11/18/24 21:00 12/18/24 20:59 11/23/24 20:51 40 MG Donepezil HCl (ARIcept 5MG TAB) 5 mg HS PO 11/18/24 21:00 12/18/24 20:59 11/23/24 20:51 5 MG Doxycycline Hyclate (Doxycycline Hyclate) 100 mg Q12H PO 11/18/24 12:00 11/20/24 13:14 DC 11/19/24 22:59 100 MG Enoxaparin Sodium (Lovenox) 40 mg DAILY SQ 11/18/24 09:00 11/18/24 01:27 DC Famotidine (Pepcid 20mg Tab) 20 mg DAILY PO 11/18/24 09:00 12/18/24 08:59 11/24/24 09:37 20 MG Gabapentin (NEURontin 300 MG CAP) 300 mg BID PO 11/18/24 21:00 12/18/24 20:59 11/24/24 09:37 300 MG Home Med (Home Medication) BID OP 11/18/24 21:00 12/18/24 20:59 Hydralazine HCl (APRESOLine 20MG INJ) 10 mg Q6H PRN IV For:SBP above 160;DBP above 90 11/17/24 22:00 12/17/24 21:59 Insulin Human Regular (humuLIN R 100 UNIT/ML 3ML) INSULIN SLIDING SCAL... ACHS SQ 11/18/24 07:30 12/18/24 07:29 11/24/24 06:34 2 UNIT Magnesium Sulfate 50 ml @ 0 mls/hr PROTOCOL PRN IV RX MONITORING LEVELS & DOSING 11/17/24 23:00 11/18/24 01:30 DC 11/18/24 00:22 25 MLS/HR Magnesium Sulfate 50 ml @ 0 mls/hr PROTOCOL PRN IV h 11/18/24 01:30 12/18/24 01:29 11/22/24 15:43 25 MLS/HR Morphine Sulfate (morPHINE 2MG SYG) 2 mg Q4H PRN IVP SEVERE PAIN (7-10) 11/17/24 22:00 11/23/24 00:59 DC Nitroglycerin (Nitrostat) 0.4 mg PROTOCOL PRN SL CHEST PAIN 11/17/24 22:00 12/17/24 21:59 Ondansetron HCl (zoFRAN 4MG INJ) 4 mg Q6H PRN IV NAUSEA/VOMITING 11/17/24 22:00 12/17/24 21:59 11/18/24 20:20 4 MG Pharmacy Profile Note (Pharmacy Communication) 1 each ONCE MISC 11/20/24 12:30 11/20/24 12:16 DC Piperacillin Sod/ Tazobactam Sod (Zosyn 3.375gm+NS 50ml) 3.375 gm Q8H IV 11/18/24 05:00 11/22/24 10:54 DC 11/22/24 05:35 3.375 GM Potassium Chloride 100 ml @ 100 mls/hr AD PRN IV POTASSIUM PROTOCOL 11/18/24 01:30 12/18/24 01:29 Potassium Chloride (K-Dur/Klor-Con 20meq) 20 meq AD PRN PO POTASSIUM PROTOCOL 11/18/24 01:30 12/18/24 01:29 11/22/24 17:43 20 MEQ Potassium Chloride (KCl 10% Elixir 20meq/15ml) 20 meq AD PRN PO POTASSIUM PROTOCOL 11/18/24 01:30 12/18/24 01:29 Rifampin (riFADin 300 MG CAP) 300 mg BID PO 11/20/24 21:00 11/30/24 20:59 11/24/24 09:37 300 MG Vancomycin HCl 250 ml @ 83.333 mls/ hr Q24H IV 11/20/24 22:00 11/23/24 21:49 DC 11/22/24 21:44 83.333 MLS/HR Vancomycin HCl 250 ml @ 83.333 mls/ hr Q24H IV 11/23/24 22:00 12/03/24 21:59 11/23/24 22:14 83.333 MLS/HR Vancomycin HCl 250 ml @ 125 mls/hr Q24H IV 11/18/24 22:00 11/20/24 21:14 DC 11/19/24 21:20 125 MLS/HR Vancomycin HCl (Vancomycin Protocol) 1 each AD IV 11/17/24 21:30 11/20/24 13:14 DC DIAGNOSTICS / RADIOLOGY: [ ] ASSESSMENT: 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 Continue with broad spectrum antibiotics ID following. Continue PT services [ ] Admit: Medical-surgical floor condition: Guarded Status: Full code IVF: heppedro Consultants infectious disease, marine resource economist's CV Antibiotics: Vancomycin IV, and Zosyn rifampin 300mg BID Microbiology repeat cultures pending growing positive cocci. CT of thoracic spine and lumbar spine demonstrated no apparent infectious process. There is fixation hardware in the lumbar spine. Case management for LTAC Labs cbc, cmp, mag+ Replace electrolytes as needed as per protocol to keep potassium above 4.0 magnesium 2.0. PT services out of bed to chair as tolerated Pain management: Morphine as needed Supportive measures: DVT ppx, GI ppx all questions answered Supervising MD: Dr. Dunn P c/d This document was generated in part using voice recognition software, occasional wrong word or sound alike substitutions may have occurred due to the inherent limitations of voice recognition software. Read the chart carefully and recognize using context, where the substitutions have occurred. Although every effort was made to edit the content, transformer repairer and typing errors may occur ATTESTATION BY PHYSICIAN I have seen and examined the patient. I reviewed the documentation, medical decision making, and treatment plan as noted by the mid-level provider above. I agree with the findings and plan of care. Brittany Dunn MD, [facility] NP Nov 24, 2024 11:29
[2024-11-24] MEDS ORDERED: PHARMACY COMMUNICATION 1 EACH EACH MISC SCH (12:30)
[2024-11-24] MEDS ORDERED: COMPOUND IV MISC 1 EACH IVSOLN MISC PRN (13:00)
--- NOTE | 2024-11-24 15:22 | PN ---
INFECTIOUS DISEASE PROGRESS NOTE Date of Service: Nov 24, 2024 SUBJECTIVE: This 74 year old male patient is being seen today at bedside. A temperature of 100.6 was noted early this morning. At this time patient is calm. No chest pain or shortness of breath. Patient continues with antibiotics tolerating well. Waiting on CV recommendations. at bedside. Latest blood cultures, preliminary with no growth. PHYSICAL EXAM EYES: Anicteric. Pupils equal and reactive. HENT: No oral thrush seen, moist Oral mucosa NECK: Supple, no JVD or thyromegaly. LUNGS: Good air entry. No rales, no rhonchi. CARDIOVASCULAR: S1, S2 regular. No murmur heard. ABDOMEN: Soft, non tender, bowel sounds present, no organomegaly CENTRAL NERVOUS SYSTEM: Awake, alert, oriented x 3. No focal deficits. SKIN: No rashes, no swelling. LYMPHATICS: No peripheral lymphadenopathy MUSCULOSKELETAL: No joint swelling, erythema or tenderness. EXTREMITIES: No cyanosis or clubbing BACK: No deformity, no pressure ulcer. GENITOURINARY: No dysuria or hematuria Vital Sign (Last 12 Hours) 11/24/24 11/24/24 11/24/24 11/24/24 04:00 07:54 08:00 11:47 Temp 100.6 98.2 98.2 Pulse 91 85 90 Resp 19 16 18 B/P (MAP) 114/63 106/49 96/50 Pulse Ox 98 97 97 95 O2 Delivery Room Air Nasal Cannula Nasal Cannula* Nasal Cannula O2 Flow Rate 2.0 2 FiO2 28 Intake & Output (last 24hrs) 11/23/24 11/23/24 11/24/24 15:00 23:00 07:00 Intake Total 250.0 ml Balance 250.0 ml LABS: Laboratory: Test 11/24/24 10:32 11/23/24 21:09 11/23/24 05:17 Range/Units Whole Blood Glucose 190 H 70-110 MG/DL Vancomycin Level Trough 13.4 # 10.0-20.0 UG/ML White Blood Count 8.3 4.8-10.8 K/uL Red Blood Count 2.97 L 4.50-6.20 MIL/uL Hemoglobin 9.2 L 14.0-18.0 g/dL Hematocrit 27.8 L 42-54 % Mean Corpuscular Volume 93.6 79-99 fL Mean Corpuscular Hemoglobin 31.0 27.0-33.0 pg Mean Corpuscular Hemoglobin Concent 33.1 32.0-36.0 g/dL Red Cell Distribution Width 14.6 11.0-15.5 % Platelet Count 108 L 130-400 K/uL Mean Platelet Volume 10.5 7.5-10.5 fL Immature Granulocyte % (Auto) 0.5 0-1 % Neutrophils (%) (Auto) 73.9 40.0-77.0 % Lymphocytes (%) (Auto) 13.7 L 21.0-51.0 % Monocytes (%) (Auto) 8.5 3.0-13.0 % Eosinophils (%) (Auto) 2.9 0.0-8.0 % Basophils (%) (Auto) 0.5 0.0-5.0 % Neutrophils # (Auto) 6.1 1.8-7.7 K/uL Lymphocytes # (Auto) 1.1 1.0-4.8 K/uL Monocytes # (Auto) 0.7 0.1-1.0 K/uL Eosinophils # (Auto) 0.24 0.00-0.70 K/uL Basophils # (Auto) 0.04 0.00-0.20 K/uL Absolute Immature Granulocyte (auto 0.04 0-1 K/uL Nucleated Red Blood Cells 0.0 0.0-0.19 % Sodium Level 136 136-145 mmol/L Potassium Level 3.9 3.5-5.1 mmol/L Chloride Level 102 101-111 mmol/L Carbon Dioxide Level 29 21-32 mmol/L Blood Urea Nitrogen 7 7-18 mg/dL Creatinine 0.8 0.5-1.3 mg/dL Glomerular Filtration Rate Calc 94 >90 mL/min Random Glucose 159 H 70-105 mg/dL Total Calcium 8.3 L 8.5-10.1 mg/dL Total Bilirubin 0.7 0.2-1.0 mg/dL Aspartate Amino Transf (AST/SGOT) 20 10-37 U/L Alanine Aminotransferase (ALT/SGPT) 18 12-78 U/L Alkaline Phosphatase 71 50-136 U/L Total Protein 5.8 L 6.0-8.3 g/dL Albumin 2.0 L 3.5-5.0 g/dL DIAGNOSTICS / RADIOLOGY: SPEC: [id number] MICHELLE: 11/17/24 STATUS: COMP REQ: [id number] RECD: 11/18/[address]: SIMA MATTHEWS SOURCE: BLOOD ENTR: 11/18/24-[address]: SAM FIGUEROA PA-C [facility]: BLOOD NONE ORDERED: AERO ID & SENS Procedure Result Jose Alejandro Date-Time AEROBIC ID & SENSITIVITIES Final 11/21/24-06 [facility] COLONY DESCRIPTION: DAY 1: GRAM POSITIVE COCCI IN CLUSTERS COAGULASE NEGATIVE STAPHYLOCOCCUS AEROBIC AND ANAEROBIC BOTTLES IDENTIFICATION AND SENSITIVITY TO FOLLOW STAPHYLOCOCCUS EPIDERMIDIS ROBERTO CASTELLANO M.I.C. RX --------- ---- CLINDAMYCIN <=0.25 S ERYTHROMYCIN >4 R GENTAMICIN <=4 S VANCOMYCIN 1 S OXACILLIN AMRITA >2 R RIFAMPIN <=1 S TETRACYCLINE <=4 S TRIMETHOPRIM/SUFLAMETHOXAZOLE 2/38 S @ [facility] Test Performed at: [facility] [address], [place], [place] Medical Consulting Nurse: Joaquim Izquierdo D.O. ASSESSMENT: * Sepsis. * Diabetes mellitus. * NSTEMI. * Thrombocytopenia. * Hypertension. * Debility. * Gram positive bacteremia PLAN: * Continue antihypertensive. * continue antidiabetic. * Continue nutritional support. * Monitor electrolytes and correct as needed. * continue vancomycin as per pharmacy protocol * Continue rifampin 300mg BID * patient will need a total of 6 weeks of antibiotics * Case management to Referral to [facility] * Follow up with blood cultures * Continue with Gentamycin IV, This case has been discussed with my supervising physician Dr. Montoya. The case has been discussed and agreed upon. ALBA CHAVARRIA [facility] Nov 24, 2024 15:22
[2024-11-24] MEDS: [UNRECOGNIZED DRUG - OTHER] IV SCH (15:52)
[2024-11-24] MEDS: GENTAMICIN SULFATE IV SCH (15:52)
--- NOTE | 2024-11-24 19:50 | CONS ---
SUBJECTIVE: The patient is a 74-year-old male who is known to us from the placement of a Perceval aortic valve via a minimally invasive approach by Dr. Blanco in 2017. The patient had been doing well; however, in 09/2024, he was admitted with Staph epidermidis bacteremia. He was sent to a group home facility where he received 4-6 weeks of IV antibiotics. These were discontinued and he went home but then developed chills and leukocytosis. He had blood cultures drawn again on this admission and he has 1 out of 3 positive for Strep epidermidis. Two days later, he had 3 more blood cultures repeated and 1 of the 3 were also positive for Staph epidermidis. All other cultures so far have been negative. A MYKE was performed. The MYKE revealed that there was some thickening to the prosthetic valve leaflets; however, there was no aortic stenosis. There was a small paravalvular leak. ADDENDUM The MYKE also showed what might be a perivalvular abscess. PHYSICAL EXAMINATION: VITAL SIGNS: Reveal temperature 98.2, blood pressure is 96/50, pulse is 90, respirations 18, oxygen saturation is 95% on room air. HEENT: He is normocephalic, atraumatic. He is edentulous and his gums appear healthy. HEART: S1 and S2 without murmur. LUNGS: Unlabored at rest. CHEST: His right subclavicular thoracotomy incision is well healed. ABDOMEN: Flat and nontender. EXTREMITIES: Examination of the extremities does not show any lesions. He does not have any Osler's nodes. 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 It might be helpful to obtain a tagged white blood cell scan. * We will continue IV antibiotics. * We will follow with you. TID: [id number] RECEIPT: [id number]
[2024-11-25] VITALS (8 sets, daily range): BP systolic 116–165; BP diastolic 55–85; PULSE 90–100; RESP 16–18; TEMP 98.2–99.4; O2SAT 98
--- NOTE | 2024-11-25 09:45 | PN ---
[facility] CARDIOLOGY PROGRESS NOTE Date Patient Seen: Nov 25, 2024 Time of Visit: 09:40 Interval History: [ pending tagged WBC scan] Physical Examination: GENERAL: [No acute distress. Elderly and frail, speaks in a very soft voice] HEAD: [Normal with no signs of head trauma.] EYES: [PERRLA, EOMI, conjunctiva and sclera normal.] ENT: [Hearing grossly intact, normal oropharynx.] NECK: [Supple without JVD. There is no tenderness, lymphadenopathy, or masses. No thyromegaly. Normal carotid upstrokes without bruits.] LUNGS: [Clear breath sounds bilaterally. There are no rales. No wheezes, or rhonchi. Nonlabored respiration] HEART: [Normal rate and rhythm. Normal S1 and prominent bioprosthetic S2 with 2/6 aortic outflow mumur, no diastolic murmur, no gallop or rub.] VASC: [Peripheral pulses +2 bilaterally.] ABD: [Bowel sounds normal, soft, nontender, no masses, no organomegaly. No audible bruits.] : [Not examined] LYMPH: [No lymphadenopathy noted.] EXT: [No clubbing, cyanosis or edema.] SKIN: [No rashes or lesions noted.] NEURO: [Awake, alert, and oriented x3. 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 Blanco in 2017. The patient had been doing well; however, in 09/2024, he was admitted with Staph epidermidis bacteremia. He was sent to a longterm facility where he received 4-6 weeks of IV antibiotics. These were discontinued and he went home but then developed chills and leukocytosis. He had blood cultures drawn again on this admission and he has 1 out of 3 positive for Strep epidermidis. Two days later, he had 3 more blood cultures repeated and 1 of the3 were also positive for Staph epidermidis. -The MYKE revealed that there was some thickening to the prosthetic valve leaflets; however, there was no aortic stenosis. There was a small paravalvular leak. However, 0.4 x 0.8 cm linear oscillating vegetation on the anterior mitral valve leaflet was visualized. -proceed with a gallium scan with imaging to be done at 6,24,48 and 72 hours -s/p consult with Dr. Joaquim Rothman who is recommending tagged WBC scan -white blood count has fallen from 15.8 on 11/19/2024 to 8.3 yesterday, but he had a recurrent fever to 100.6 on 11/24 in AM -blood cultures 11/17/2024 and 11/19/2024 are again growing Staph epidermidis. Repeat blood cultures from 11/21/2024 and 11/22/2024 demonstrate no growth thus far -CT of thoracic spine and lumbar spine demonstrated no apparent infectious process. There is fixation hardware in the lumbar spine. -if AVR as planned the patient will require repeat coronary angiography. Type [address] segment elevation [place], in the setting of sepsis, with troponin rising to 3303: Normal coronary arteries by prior cardiac catheterization 2017: Normal LVEF with an LVEF of 55-60% and normal wall motion on 2D echocardiogram 11/18/2024: -continue antiplatelet therapy and statin therapy Severe aortic stenosis status post minimally invasive aortic valve replacement with an extra-large Cristhian Jc bioprosthetic aortic valve 09/04/2016: -normal functioning bioprosthetic aortic valve by 2D echocardiogram 11/18/2024, and by transesophageal echo 11/20/2024. Comorbidities: C-spine myelomalacia Dementia MYKE 10/09/2024 demonstrated an LVEF of 45-50% and no valvular vegetations Hypertension Hyperlipidemia Type 2 diabetes mellitus ] JORDON CHACON MD Nov 25, 2024 09:45
--- NOTE | 2024-11-25 12:26 | PN ---
INFECTIOUS DISEASE PROGRESS NOTE Date of Service: Nov 25, 2024 SUBJECTIVE: This 74 year old male patient is being seen today at bedside. He is awake alert and oriented x3. Patient is laying in bed. Denies chest pain or shortness of breath. Patient stated he worked with PT this morning. CV has evaluated patient and recommended tagged WBC scan. Nurse states today will be day two of Gall. We continue to follow patient. Patient to continue antibiotics. PHYSICAL EXAM EYES: Anicteric. Pupils equal and reactive. HENT: No oral thrush seen, moist Oral mucosa NECK: Supple, no JVD or thyromegaly. LUNGS: Good air entry. No rales, no rhonchi. CARDIOVASCULAR: S1, S2 regular. No murmur heard. ABDOMEN: Soft, non tender, bowel sounds present, no organomegaly CENTRAL NERVOUS SYSTEM: Awake, alert, oriented x 3. No focal deficits. SKIN: No rashes, no swelling. LYMPHATICS: No peripheral lymphadenopathy MUSCULOSKELETAL: No joint swelling, erythema or tenderness. EXTREMITIES: No cyanosis or clubbing BACK: No deformity, no pressure ulcer. GENITOURINARY: No dysuria or hematuria Vital Sign (Last 12 Hours) 11/25/24 11/25/24 11/25/24 04:23 07:50 11:52 Temp 98.2 98.8 98.4 Pulse 94 92 97 Resp 18 18 16 B/P (MAP) 120/55 131/66 144/62 Pulse Ox 96 95 98 O2 Delivery Room Air Room Air Room Air Intake & Output (last 24hrs)0 11/24/24 11/24/24 11/25/24 15:00 23:00 07:00 Intake Total 200.0 ml Balance 200.0 ml LABS: Laboratory: Test 11/25/24 10:40 11/25/24 07:10 11/23/24 21:09 Range/Units Whole Blood Glucose 193 H 70-110 MG/DL Gentamicin Level Peak 4.2 4.0-8.0 mcg/mL Vancomycin Level Trough 13.4 # 10.0-20.0 UG/ML DIAGNOSTICS / RADIOLOGY: SPEC: [id number] MICHELLE: 11/17/24 STATUS: COMP REQ: [id number] RECD: 11/18/24-[address]: SIMA MATTHEWS SOURCE: BLOOD ENTR: 11/18/24-[address] [facility] [address]: SAM FIGUEROA PA-C [facility]: BLOOD NONE ORDERED: AERO ID & SENS Procedure Result Jose Alejandro Date-Time AEROBIC ID & SENSITIVITIES Final 11/21/24-615 [facility] COLONY DESCRIPTION: DAY 1: GRAM POSITIVE COCCI IN CLUSTERS COAGULASE NEGATIVE STAPHYLOCOCCUS AEROBIC AND ANAEROBIC BOTTLES IDENTIFICATION AND SENSITIVITY TO FOLLOW STAPHYLOCOCCUS EPIDERMIDIS STA PASQUALEER M.I.C. RX --------- ---- CLINDAMYCIN <=0.25 S ERYTHROMYCIN >4 R GENTAMICIN <=4 S VANCOMYCIN 1 S OXACILLIN AMRITA >2 R RIFAMPIN <=1 S TETRACYCLINE <=4 S TRIMETHOPRIM/SUFLAMETHOXAZOLE 2/38 S @ [facility] Test Performed at: [facility] [address], [place], [place] Medical Merchandise Flow Manager: Joaquim Izquierdo D.O. ASSESSMENT: * Sepsis. * Diabetes mellitus. * NSTEMI. * Thrombocytopenia. * Hypertension. * Debility. * Gram positive bacteremia PLAN: * Continue antihypertensive. * continue antidiabetic. * Continue nutritional support. * Monitor electrolytes and correct as needed. * continue vancomycin as per pharmacy protocol * Continue rifampin 300mg BID * patient will need a total of 6 weeks of antibiotics * Case management to Referral to [facility] * Follow up with blood cultures * Continue with Gentamycin IV, * continue with CV recommendations This case has been discussed with my supervising physician Dr. Montoya. the case has been discussed and agreed upon. ALBA CHAVARRIA [facility] Nov 25, 2024 12:26
--- NOTE | 2024-11-25 15:53 | NUR ---
INFORMED OPINIA,PHARMACIST ON GENTAMYCIN TROUGH 2.0 ,PER PHARMACY WILL ADJUST DOSING
[2024-11-25] MEDS ORDERED: PHARMACY COMMUNICATION 1 EACH EACH MISC SCH (16:00)
[2024-11-25] MEDS: VANCOMYCIN 1.25 GM/250 ML BAG 250 ML IV SCH (16:39)
--- NOTE | 2024-11-25 20:49 | PN ---
The patient is status post prosthetic aortic valve replacement back in 2017. There is question of ____ whether on echo a root abscess was seen as the patient has grown out 2 positive cultures out of 6 drawn on the same days with Staph epidermidis. Multiple repeat cultures since have been negative for growth. The patient had a tagged white blood cell scan performed. The reading is not read yet; however, I do not see anything lighting up in the mediastinum. There appears to be something lighting up in the right wrist and right upper quadrant of his abdomen. We will await the final readout by Radiology. In the meantime, Infectious Disease is following the patient and the patient is on antibiotics. TID: [id number] RECEIPT: [id number]
[2024-11-25] MEDS: VANCOMYCIN 500MG+NS 100ML 100 ML IV SCH (22:32)
[2024-11-26 03:53] VITALS: BP 112/59; PULSE 95; RESP 17; TEMP 99.7
[2024-11-26] MEDS: VANCOMYCIN 500MG+NS 100ML 100 ML IV SCH (05:18)
[2024-11-26 07:35] VITALS: BP 115/63; PULSE 97; RESP 18; TEMP 98.7
[2024-11-26 07:38] VITALS: O2SAT 97
[2024-11-26] MEDS: GENTAMICIN SULFATE IV SCH (09:26)
[2024-11-26] MEDS: [UNRECOGNIZED DRUG - OTHER] IV SCH (09:26)
--- NOTE | 2024-11-26 09:39 | PN ---
[facility] CARDIOLOGY PROGRESS NOTE Date Patient Seen: Nov 26, 2024 Time of Visit: 09:39 Interval History: [ pending tagged WBC scan] Physical Examination: GENERAL: [No acute distress. Elderly and frail, speaks in a very soft voice] HEAD: [Normal with no signs of head trauma.] EYES: [PERRLA, EOMI, conjunctiva and sclera normal.] ENT: [Hearing grossly intact, normal oropharynx.] NECK: [Supple without JVD. There is no tenderness, lymphadenopathy, or masses. No thyromegaly. Normal carotid upstrokes without bruits.] LUNGS: [Clear breath sounds bilaterally. There are no rales. No wheezes, or rhonchi. Nonlabored respiration] HEART: [Normal rate and rhythm. Normal S1 and prominent bioprosthetic S2 with 2/6 aortic outflow mumur, no diastolic murmur, no gallop or rub.] VASC: [Peripheral pulses +2 bilaterally.] ABD: [Bowel sounds normal, soft, nontender, no masses, no organomegaly. No audible bruits.] : [Not examined] LYMPH: [No lymphadenopathy noted.] EXT: [No clubbing, cyanosis or edema.] SKIN: [No rashes or lesions noted.] NEURO: [Awake, alert, and oriented x3. 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 Blanco in 2017. The patient had been doing well; however, in 09/2024, he was admitted with Staph epidermidis bacteremia. He was sent to a [facility] facility where he received 4-6 weeks of IV antibiotics. These were discontinued and he went home but then developed chills and leukocytosis. He had blood cultures drawn again on this admission and he has 1 out of 3 positive for Strep epidermidis. Two days later, he had 3 more blood cultures repeated and 1 of the3 were also positive for Staph epidermidis. -The MYKE revealed that there was some thickening to the prosthetic valve leaflets; however, there was no aortic stenosis. There was a small paravalvular leak. However, 0.4 x 0.8 cm linear oscillating vegetation on the anterior mitral valve leaflet was visualized. -proceed with a gallium scan with imaging to be done at 6,24,48 and 72 hours -s/p consult with Dr. Joaquim Rothman who is recommending tagged WBC scan -white blood count has fallen from 15.8 on 11/19/2024 to 8.3 yesterday, but he had a recurrent fever to 100.6 on 11/24 in AM -blood cultures 11/17/2024 and 11/19/2024 are again growing Staph epidermidis. Repeat blood cultures from 11/21/2024 and 11/22/2024 demonstrate no growth thus far -CT of thoracic spine and lumbar spine demonstrated no apparent infectious process. There is fixation hardware in the lumbar spine. -if AVR as planned the patient will require repeat coronary angiography. Type [address] segment elevation [place], in the setting of sepsis, with troponin rising to 3303: Normal coronary arteries by prior cardiac catheterization 2017: Normal LVEF with an LVEF of 55-60% and normal wall motion on 2D echocardiogram 11/18/2024: -continue antiplatelet therapy and statin therapy Severe aortic stenosis status post minimally invasive aortic valve replacement with an extra-large Cristhian Hope bioprosthetic aortic valve 09/04/2016: -normal functioning bioprosthetic aortic valve by 2D echocardiogram 11/18/2024, and by transesophageal echo 11/20/2024. Comorbidities: C-spine myelomalacia Dementia MYKE 10/09/2024 demonstrated an LVEF of 45-50% and no valvular vegetations Hypertension Hyperlipidemia Type 2 diabetes mellitus ] JORDON CHACON MD Nov 26, 2024 09:39
--- NOTE | 2024-11-26 10:36 | PN ---
[facility] PROGRESS NOTE Date of Service: Nov 26, 2024 Time of Service: 10:36 SUBJECTIVE: [ ] Mr. Bennett is a 74-year-old male that was seen and examined today on 11/17/2024. Patient is a poor historian and personal health due to past medical history of dementia. Patient's , Erma Thomas is at bedside. Patient says that patient came to the emergency department with a chief complaint of weakness. Onset was today at 5:00 p.m.. Location is to bilateral lower extremities. Duration is constant. Character is described as, "he was just sitting in the sofa all day and sleeping more than usual. There was no alleviating factors. There was no aggravating factors. Spouse reports associated fever and chills. 11/18/24 patient was seen earlier patient is lying in bed with family at bedside. Patient was discharged from LTAC for long-term IV antibiotics discharged home with oral antibiotics we will have ID on board. Patient denied chest pain or shortness for breath. 11/19/24 patient was seen patient denied chest pain shortness a breath. He complaints being constipated we will provide as needed lactulose. Patient waiting for CT lumbar spine examined to be done most likely on Wednesday. We will have Physical therapy work with patient as well. All questions and answers addressed appropriately. 11/20/2024 patient was seen earlier patient is lying in bed patient went for a MYKE this morning. We will follow-up results continues with triple antibiotics tolerating well cultures in process. Continues to work with physical therapy primary nurse reports no events overnight 11/21/2024 patient was seen earlier patient is lying in bed encourage out of bed to chair as tolerated. Continue with broad-spectrum antibiotics vancomycin Zosyn IV. 11/22/24 patient is seen and examined patient is lying in bed. Case management discharge planning LTAC patient is pending CT angio for abscess on valve. We will continue to monitor patient closely. 11/23/24 PATIENT IS SEEN AND EXAMINED PATIENT IS FULLY AWAKE ALERT ORIENTED X3.chest CT angiogram demonstrated no definitive evidence of rodrigo-aortic valvular abscess, DR. 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 11/24/24 patient was working with physical therapy ambulate with walker with assist. Patient will remain sitting in recliner as tolerated. Waiting for CV recommendations. Patient denied chest pain or shortness for breath patient reports having difficulty sleeping yesterday 11/25/24 late entry: The patient is waiting to get in shower, reports no new complaints. continue with Series of CT scans: given to perivalvular aortic abscess, continue with Broad spectrum antibiotics will follow sales and service officer recommendations. 11/26/24 patient is seen patient reports no chest pain or shortness for breath p atient went for his last CT imaging we will follow-up sales and service officer's recommendations. Primary nurse reports no events overnight REVIEW OF SYSTEMS CONSTITUTIONAL: Denies fevers, chills, or night sweats. No unintentional weight loss reported. NEUROLOGICAL: Denies headache, amaurosis fugax, motor weakness, sensory d eficit, vertigo/spinning sensation, gait abnormalities, or tremors. ENT: No hearing loss, otalgia, otorrhea, rhinitis, rhinorrhea, hoarseness, or sore throat. CARDIOVASCULAR: Denies any exertional angina, dyspnea on exertion, orthopnea, paroxysmal nocturnal dyspnea, palpitations, life-threatening arrhythmias, claudication. PULMONARY: Denies any shortness of breath, cough, phlegm/sputum, hemoptysis, pleuritic chest pain. SLEEP: Denies morning headaches, daytime somnolence or napping. Denies difficulty falling asleep, staying asleep, waking from sleep. Denies knowledge of snoring. GASTROINTESTINAL: Denies any type of dysphagia to either liquids or solids. Denies nausea, vomiting, pyrosis, early satiety, abdominal pain, diarrhea, constipation, or changes in stool consistency or caliber. Denies coffee-ground emesis, hematemesis, hematochezia, or melanotic stools. GENITOURINARY: Denies frequency, urgency, nocturia, hematuria or incontinence (Storage/Irritative symptoms.) Low urinary stream, straining to void, urinary intermittency or hesitancy, splitting of the voiding stream, terminal dribbling. ENDOCRINOLOGIC: Denies polyuria, polydipsia, polyphagia or heat/cold intolerances. HEMATOLOGIC: Denies thrombophilia/previous clots, or coagulopathy/bleeding disorders. ONCOLOGIC: Denies personal history of malignancy. DERMATOLOGIC: Denies rashes or pruritus. PSYCHIATRIC: Denies any suicidal or homicidal ideation. Denies hallucinations. PHYSICAL EXAM GENERAL APPEARANCE: The patient is awake, alert, and oriented, in no acute cardiopulmonary distress. NEUROLOGICAL: Cranial nerves II-XII grossly intact. Motor is 5/5 in bilateral upper and lower extremities proximal to distal. No sensory deficits. HEENT: Face is symmetric. Pupils are equal and reactive. Extraocular movements are intact. NECK: Supple. No JVD. No thyromegaly. No submental, submandibular, pre- /postauricular, occipital or supraclavicular lymphadenopathy. CHEST: Normal chest expansion. No Telemetry. LUNGS: Absence of any rales, rhonchi or any wheezing. CARDIOVASCULAR: Regular. S1 and S2 normal. No appreciable rubs, murmurs or gallops. ABDOMEN: Soft, nontender, and nondistended. There is no rebound, voluntary guarding, or rigidity. : Deferred. No Emmanuel. EXTREMITIES: Non-edematous and not cyanotic. No clubbing. Good capillary refill. SKIN: No skin breakdown. Vital Signs (last 8hr) Date Time Temp Pulse Resp B/P (MAP) Pulse Ox O2 Delivery O2 Flow Rate FiO2 11/26/24 07:38 97 Room Air* 0 21 11/26/24 07:35 98.8 97 18 115/63 97 Room Air 11/26/24 03:53 99.7 95 17 112/59 97 Room Air LABS: Laboratory: Test 11/26/24 08:03 11/26/24 05:08 11/25/24 14:21 11/25/24 07:10 Range/Units Random Gentamicin Level 0.4 0.2-2.0 mcg/mL Whole Blood Glucose 115 H 70-110 MG/DL Gentamicin Level Trough 2.0 0.0-2.0 mcg/mL Gentamicin Level Peak 4.2 4.0-8.0 mcg/mL Current Medications Medications (Trade) Dose Ordered Sig/Ann Marie Route PRN Reason Start Time Stop Time Status Last Admin Dose Admin Acetaminophen (TYLenol 325MG TAB) 650 mg Q6H PRN PO TEMPERATURE GREATER THAN 101.5 11/17/24 22:00 12/17/24 21:59 11/26/24 08:21 650 MG Aspirin (Aspirin 81mg Ec Tab) 81 mg DAILY PO 11/18/24 09:00 11/18/24 14:00 DC 11/18/24 09:48 81 MG Aspirin (Aspirin 81mg Ec Tab) 81 mg DAILY PO 11/19/24 09:00 12/19/24 08:59 11/26/24 08:21 81 MG Atorvastatin Calcium (LIPItor 40MG) 40 mg HS PO 11/18/24 21:00 12/18/24 20:59 11/25/24 20:13 40 MG Donepezil HCl (ARIcept 5MG TAB) 5 mg HS PO 11/18/24 21:00 12/18/24 20:59 11/25/24 20:12 5 MG Doxycycline Hyclate (Doxycycline Hyclate) 100 mg Q12H PO 11/18/24 12:00 11/20/24 13:14 DC 11/19/24 22:59 100 MG Enoxaparin Sodium (Lovenox) 40 mg DAILY SQ 11/18/24 09:00 11/18/24 01:27 DC Famotidine (Pepcid 20mg Tab) 20 mg DAILY PO 11/18/24 09:00 12/18/24 08:59 11/26/24 08:21 20 MG Gabapentin (NEURontin 300 MG CAP) 300 mg BID PO 11/18/24 21:00 12/18/24 20:59 11/26/24 08:20 300 MG Gentamicin Sulfate 60 mg/ Sodium Chloride 100 ml @ 200 mls/hr Q12H9 IV 11/26/24 09:00 12/10/24 08:59 11/26/24 09:26 200 MLS/HR Gentamicin Sulfate 60 mg/ Sodium Chloride 100 ml @ 200 mls/hr Q8H IV 11/24/24 14:00 11/25/24 17:17 DC 11/25/24 06:00 200 MLS/HR Gentamicin Sulfate (GENTAmicin PROTOCOL) 1 each AD IV 11/24/24 13:30 12/08/24 13:29 Home Med (Home Medication) BID OP 11/18/24 21:00 12/18/24 20:59 Hydralazine HCl (APRESOLine 20MG INJ) 10 mg Q6H PRN IV For:SBP above 160;DBP above 90 11/17/24 22:00 12/17/24 21:59 Insulin Human Regular (humuLIN R 100 UNIT/ML 3ML) INSULIN SLIDING SCAL... ACHS SQ 11/18/24 07:30 12/18/24 07:29 11/25/24 20:17 2 UNIT Magnesium Sulfate 50 ml @ 0 mls/hr PROTOCOL PRN IV RX MONITORING LEVELS & DOSING 11/17/24 23:00 11/18/24 01:30 DC 11/18/24 00:22 25 MLS/HR Magnesium Sulfate 50 ml @ 0 mls/hr PROTOCOL PRN IV h 11/18/24 01:30 12/18/24 01:29 11/22/24 15:43 25 MLS/HR Morphine Sulfate (morPHINE 2MG SYG) 2 mg Q4H PRN IVP SEVERE PAIN (7-10) 11/17/24 22:00 11/23/24 00:59 DC Nitroglycerin (Nitrostat) 0.4 mg PROTOCOL PRN SL CHEST PAIN 11/17/24 22:00 12/17/24 21:59 Ondansetron HCl (zoFRAN 4MG INJ) 4 mg Q6H PRN IV NAUSEA/VOMITING 11/17/24 22:00 12/17/24 21:59 11/18/24 20:20 4 MG Pharmacy Profile Note (Lace Assessment) 1 each AD MISC 11/24/24 12:30 11/24/24 13:00 DC Pharmacy Profile Note (Lace Assessment) 1 each AD MISC 11/25/24 16:00 11/26/24 07:15 DC Pharmacy Profile Note (Pharmacy Communication) 1 each ONCE MISC 11/20/24 12:30 11/20/24 12:16 DC Piperacillin Sod/ Tazobactam Sod (Zosyn 3.375gm+NS 50ml) 3.375 gm Q8H IV 11/18/24 05:00 11/22/24 10:54 DC 11/22/24 05:35 3.375 GM Potassium Chloride 100 ml @ 100 mls/hr AD PRN IV POTASSIUM PROTOCOL 11/18/24 01:30 12/18/24 01:29 Potassium Chloride (K-Dur/Klor-Con 20meq) 20 meq AD PRN PO POTASSIUM PROTOCOL 11/18/24 01:30 12/18/24 01:29 11/22/24 17:43 20 MEQ Potassium Chloride (KCl 10% Elixir 20meq/15ml) 20 meq AD PRN PO POTASSIUM PROTOCOL 11/18/24 01:30 12/18/24 01:29 Rifampin (riFADin 300 MG CAP) 300 mg BID PO 11/20/24 21:00 11/30/24 20:59 11/26/24 08:20 300 MG Vancomycin HCl 100 ml @ 100 mls/hr BID@0600,1800 IV 11/26/24 06:00 11/26/24 07:19 DC 11/26/24 05:18 100 MLS/HR Vancomycin HCl 100 ml @ 100 mls/hr ONCE IV 11/25/24 22:30 11/25/24 23:59 DC 11/25/24 22:32 100 MLS/HR Vancomycin HCl 250 ml @ 83.333 mls/ hr Q24H IV 11/20/24 22:00 11/23/24 21:49 DC 11/22/24 21:44 83.333 MLS/HR Vancomycin HCl 250 ml @ 83.333 mls/ hr Q24H IV 11/23/24 22:00 11/24/24 12:24 DC 11/23/24 22:14 83.333 MLS/HR Vancomycin HCl 250 ml @ 125 mls/hr ONCE IV 11/25/24 16:30 11/25/24 18:30 DC 11/25/24 16:39 125 MLS/HR Vancomycin HCl 250 ml @ 125 mls/hr Q12H IV 11/26/24 18:00 12/06/24 17:59 Vancomycin HCl 250 ml @ 125 mls/hr Q24H IV 11/18/24 22:00 11/20/24 21:14 DC 11/19/24 21:20 125 MLS/HR Vancomycin HCl (Vancomycin Protocol) 1 each AD IV 11/17/24 21:30 11/20/24 13:14 DC DIAGNOSTICS / RADIOLOGY: [ ] ASSESSMENT: 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 CV: Dr. Joaquim Rothman who is recommending tagged WBC scan Continue with broad spectrum antibiotics ID following. will need a total of 6 weeks of antibiotics blood cultures 11/17/2024 and 11/19/2024 are again growing Staph epidermidis. Repeat blood cultures from 11/21/2024 and 11/22/2024 demonstrate no growth thus far pillowcase folder: LTAC once cleared by sales and service officer waiting for final results of CT scans: Gallium Continue PT services , continue pain management. [ ] Admit: Medical-surgical floor condition: Guarded Status: Full code IVF: [facility] infectious disease, sales and service officer's CV Antibiotics: Vancomycin IV, and Zosyn rifampin 300mg BID Microbiology Case management for LTAC Labs cbc, cmp, mag+ Replace electrolytes as needed as per protocol to keep potassium above 4.0 magnesium 2.0. PT services out of bed to chair as tolerated Pain management: Morphine as needed Supportive measures: DVT ppx, GI ppx all questions answered Supervising MD: Dr. Mona Mayers c/d This document was generated in part using voice recognition software, occasional wrong word or sound alike substitutions may have occurred due to the inherent limitations of voice recognition software. Read the chart carefully and recognize using context, where the substitutions have occurred. Although every effort was made to edit the content, group leader semiconductor testing and typing errors may occur ATTESTATION BY PHYSICIAN I have seen and examined the patient. I reviewed the documentation, medical decision making, and treatment plan as noted by the mid-level provider above. I agree with the findings and plan of care. PHONG PORRAS MD, ELIZABETH NP Nov 26, 2024 10:36
--- NOTE | 2024-11-26 10:40 | PN ---
[facility] PROGRESS NOTE Date of Service: Nov 26, 2024 Time of Service: 10:37 SUBJECTIVE: [ ] Mr. Bennett is a 74-year-old male that was seen and examined today on 11/17/2024. Patient is a poor historian and personal health due to past medical history of dementia. Patient's , Erma Thomas is at bedside. Patient says that patient came to the emergency department with a chief complaint of weakness. Onset was today at 5:00 p.m.. Location is to bilateral lower extremities. Duration is constant. Character is described as, "he was just sitting in the sofa all day and sleeping more than usual. There was no alleviating factors. There was no aggravating factors. Spouse reports associated fever and chills. 11/18/24 patient was seen earlier patient is lying in bed with family at bedside. Patient was discharged from LTAC for long-term IV antibiotics discharged home with oral antibiotics we will have ID on board. Patient denied chest pain or shortness for breath. 11/19/24 patient was seen patient denied chest pain shortness a breath. He complaints being constipated we will provide as needed lactulose. Patient waiting for CT lumbar spine examined to be done most likely on Wednesday. We will have Physical therapy work with patient as well. All questions and answers addressed appropriately. 11/20/2024 patient was seen earlier patient is lying in bed patient went for a MYKE this morning. We will follow-up results continues with triple antibiotics tolerating well cultures in process. Continues to work with physical therapy primary nurse reports no events overnight 11/21/2024 patient was seen earlier patient is lying in bed encourage out of bed to chair as tolerated. Continue with broad-spectrum antibiotics vancomycin Zosyn IV. 11/22/24 patient is seen and examined patient is lying in bed. Case management discharge planning LTAC patient is pending CT angio for abscess on valve. We will continue to monitor patient closely. 11/23/24 PATIENT IS SEEN AND EXAMINED PATIENT IS FULLY AWAKE ALERT ORIENTED X3.chest CT angiogram demonstrated no definitive evidence of rodrigo-aortic valvular abscess, DR. 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 11/24/24 patient was working with physical therapy ambulate with walker with assist. Patient will remain sitting in recliner as tolerated. Waiting for CV recommendations. Patient denied chest pain or shortness for breath patient reports having difficulty sleeping yesterday 11/25/24 late entry: The patient is waiting to get in shower, reports no new complaints. continue with Series of CT scans: given to perivalvular aortic abscess, continue with Broad spectrum antibiotics will follow financial investigator recommendations. REVIEW OF SYSTEMS CONSTITUTIONAL: Denies fevers, chills, or night sweats. No unintentional weight loss reported. NEUROLOGICAL: Denies headache, amaurosis fugax, motor weakness, sensory deficit, vertigo/spinning sensation, gait abnormalities, or tremors. ENT: No hearing loss, otalgia, otorrhea, rhinitis, rhinorrhea, hoarseness, or sore throat. CARDIOVASCULAR: Denies any exertional angina, dyspnea on exertion, orthopnea, paroxysmal nocturnal dyspnea, palpitations, life-threatening arrhythmias, claudication. PULMONARY: Denies any shortness of breath, cough, phlegm/sputum, hemoptysis, pleuritic chest pain. SLEEP: Denies morning headaches, daytime somnolence or napping. Denies difficulty falling asleep, staying asleep, waking from sleep. Denies knowledge of snoring. GASTROINTESTINAL: Denies any type of dysphagia to either liquids or solids. Denies nausea, vomiting, pyrosis, early satiety, abdominal pain, diarrhea, constipation, or changes in stool consistency or caliber. Denies coffee-ground emesis, hematemesis, hematochezia, or melanotic stools. GENITOURINARY: Denies frequency, urgency, nocturia, hematuria or incontinence (Storage/Irritative symptoms.) Low urinary stream, straining to void, urinary intermittency or hesitancy, splitting of the voiding stream, terminal dribbling. ENDOCRINOLOGIC: Denies polyuria, polydipsia, polyphagia or heat/cold intolerances. HEMATOLOGIC: Denies thrombophilia/previous clots, or coagulopathy/bleeding disorders. ONCOLOGIC: Denies personal history of malignancy. DERMATOLOGIC: Denies rashes or pruritus. PSYCHIATRIC: Denies any suicidal or homicidal ideation. Denies hallucinations. PHYSICAL EXAM GENERAL APPEARANCE: The patient is awake, alert, and oriented, in no acute cardiopulmonary distress. NEUROLOGICAL: Cranial nerves II-XII grossly intact. Motor is 5/5 in bilateral upper and lower extremities proximal to distal. No sensory deficits. HEENT: Face is symmetric. Pupils are equal and reactive. Extraocular movements are intact. NECK: Supple. No JVD. No thyromegaly. No submental, submandibular, pre- /postauricular, occipital or supraclavicular lymphadenopathy. CHEST: Normal chest expansion. No Telemetry. LUNGS: Absence of any rales, rhonchi or any wheezing. CARDIOVASCULAR: Regular. S1 and S2 normal. No appreciable rubs, murmurs or gallops. ABDOMEN: Soft, nontender, and nondistended. There is no rebound, voluntary guarding, or rigidity. : Deferred. No Emmanuel. EXTREMITIES: Non-edematous and not cyanotic. No clubbing. Good capillary refill. SKIN: No skin breakdown. Vital Signs (last 8hr) Date Time Temp Pulse Resp B/P (MAP) Pulse Ox O2 Delivery O2 Flow Rate FiO2 11/26/24 07:38 97 Room Air* 0 21 11/26/24 07:35 98.8 97 18 115/63 97 Room Air 11/26/24 03:53 99.7 95 17 112/59 97 Room Air LABS: Laboratory: Test 11/26/24 08:03 11/26/24 05:08 11/25/24 14:21 11/25/24 07:10 Range/Units Random Gentamicin Level 0.4 0.2-2.0 mcg/mL Whole Blood Glucose 115 H 70-110 MG/DL Gentamicin Level Trough 2.0 0.0-2.0 mcg/mL Gentamicin Level Peak 4.2 4.0-8.0 mcg/mL Current Medications Medications (Trade) Dose Ordered Sig/Ann Marie Route PRN Reason Start Time Stop Time Status Last Admin Dose Admin Acetaminophen (TYLenol 325MG TAB) 650 mg Q6H PRN PO TEMPERATURE GREATER THAN 101.5 11/17/24 22:00 12/17/24 21:59 11/26/24 08:21 650 MG Aspirin (Aspirin 81mg Ec Tab) 81 mg DAILY PO 11/18/24 09:00 11/18/24 14:00 DC 11/18/24 09:48 81 MG Aspirin (Aspirin 81mg Ec Tab) 81 mg DAILY PO 11/19/24 09:00 12/19/24 08:59 11/26/24 08:21 81 MG Atorvastatin Calcium (LIPItor 40MG) 40 mg HS PO 11/18/24 21:00 12/18/24 20:59 11/25/24 20:13 40 MG Donepezil HCl (ARIcept 5MG TAB) 5 mg HS PO 11/18/24 21:00 12/18/24 20:59 11/25/24 20:12 5 MG Doxycycline Hyclate (Doxycycline Hyclate) 100 mg Q12H PO 11/18/24 12:00 11/20/24 13:14 DC 11/19/24 22:59 100 MG Enoxaparin Sodium (Lovenox) 40 mg DAILY SQ 11/18/24 09:00 11/18/24 01:27 DC Famotidine (Pepcid 20mg Tab) 20 mg DAILY PO 11/18/24 09:00 12/18/24 08:59 11/26/24 08:21 20 MG Gabapentin (NEURontin 300 MG CAP) 300 mg BID PO 11/18/24 21:00 12/18/24 20:59 11/26/24 08:20 300 MG Gentamicin Sulfate 60 mg/ Sodium Chloride 100 ml @ 200 mls/hr Q12H9 IV 11/26/24 09:00 12/10/24 08:59 11/26/24 09:26 200 MLS/HR Gentamicin Sulfate 60 mg/ Sodium Chloride 100 ml @ 200 mls/hr Q8H IV 11/24/24 14:00 11/25/24 17:17 DC 11/25/24 06:00 200 MLS/HR Gentamicin Sulfate (GENTAmicin PROTOCOL) 1 each AD IV 11/24/24 13:30 12/08/24 13:29 Home Med (Home Medication) BID OP 11/18/24 21:00 12/18/24 20:59 Hydralazine HCl (APRESOLine 20MG INJ) 10 mg Q6H PRN IV For:SBP above 160;DBP above 90 11/17/24 22:00 12/17/24 21:59 Insulin Human Regular (humuLIN R 100 UNIT/ML 3ML) INSULIN SLIDING SCAL... ACHS SQ 11/18/24 07:30 12/18/24 07:29 11/25/24 20:17 2 UNIT Magnesium Sulfate 50 ml @ 0 mls/hr PROTOCOL PRN IV RX MONITORING LEVELS & DOSING 11/17/24 23:00 11/18/24 01:30 DC 11/18/24 00:22 25 MLS/HR Magnesium Sulfate 50 ml @ 0 mls/hr PROTOCOL PRN IV h 11/18/24 01:30 12/18/24 01:29 11/22/24 15:43 25 MLS/HR Morphine Sulfate (morPHINE 2MG SYG) 2 mg Q4H PRN IVP SEVERE PAIN (7-10) 11/17/24 22:00 11/23/24 00:59 DC Nitroglycerin (Nitrostat) 0.4 mg PROTOCOL PRN SL CHEST PAIN 11/17/24 22:00 12/17/24 21:59 Ondansetron HCl (zoFRAN 4MG INJ) 4 mg Q6H PRN IV NAUSEA/VOMITING 11/17/24 22:00 12/17/24 21:59 11/18/24 20:20 4 MG Pharmacy Profile Note (Lace Assessment) 1 each AD MISC 11/24/24 12:30 11/24/24 13:00 DC Pharmacy Profile Note (Lace Assessment) 1 each AD MISC 11/25/24 16:00 11/26/24 07:15 DC Pharmacy Profile Note (Pharmacy Communication) 1 each ONCE MISC 11/20/24 12:30 11/20/24 12:16 DC Piperacillin Sod/ Tazobactam Sod (Zosyn 3.375gm+NS 50ml) 3.375 gm Q8H IV 11/18/24 05:00 11/22/24 10:54 DC 11/22/24 05:35 3.375 GM Potassium Chloride 100 ml @ 100 mls/hr AD PRN IV POTASSIUM PROTOCOL 11/18/24 01:30 12/18/24 01:29 Potassium Chloride (K-Dur/Klor-Con 20meq) 20 meq AD PRN PO POTASSIUM PROTOCOL 11/18/24 01:30 12/18/24 01:29 11/22/24 17:43 20 MEQ Potassium Chloride (KCl 10% Elixir 20meq/15ml) 20 meq AD PRN PO POTASSIUM PROTOCOL 11/18/24 01:30 12/18/24 01:29 Rifampin (riFADin 300 MG CAP) 300 mg BID PO 11/20/24 21:00 11/30/24 20:59 11/26/24 08:20 300 MG Vancomycin HCl 100 ml @ 100 mls/hr BID@0600,1800 IV 11/26/24 06:00 11/26/24 07:19 DC 11/26/24 05:18 100 MLS/HR Vancomycin HCl 100 ml @ 100 mls/hr ONCE IV 11/25/24 22:30 11/25/24 23:59 DC 11/25/24 22:32 100 MLS/HR Vancomycin HCl 250 ml @ 83.333 mls/ hr Q24H IV 11/20/24 22:00 11/23/24 21:49 DC 11/22/24 21:44 83.333 MLS/HR Vancomycin HCl 250 ml @ 83.333 mls/ hr Q24H IV 11/23/24 22:00 11/24/24 12:24 DC 11/23/24 22:14 83.333 MLS/HR Vancomycin HCl 250 ml @ 125 mls/hr ONCE IV 11/25/24 16:30 11/25/24 18:30 DC 11/25/24 16:39 125 MLS/HR Vancomycin HCl 250 ml @ 125 mls/hr Q12H IV 11/26/24 18:00 12/06/24 17:59 Vancomycin HCl 250 ml @ 125 mls/hr Q24H IV 11/18/24 22:00 11/20/24 21:14 DC 11/19/24 21:20 125 MLS/HR Vancomycin HCl (Vancomycin Protocol) 1 each AD IV 11/17/24 21:30 11/20/24 13:14 DC DIAGNOSTICS / RADIOLOGY: [ ] ASSESSMENT: 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 Continue PT services [ ] Admit: Medical-surgical floor condition: Guarded Status: Full code IVF: heplock Consultants infectious disease, financial investigator's CV Antibiotics: Vancomycin IV, and Zosyn rifampin 300mg BID Microbiology repeat cultures pending growing positive cocci. CT of thoracic spine and lumbar spine demonstrated no apparent infectious process. There is fixation hardware in the lumbar spine. Case management for LTAC Labs cbc, cmp, mag+ Replace electrolytes as needed as per protocol to keep potassium above 4.0 magnesium 2.0. PT services out of bed to chair as tolerated Pain management: Morphine as needed Supportive measures: DVT ppx, GI ppx all questions answered Supervising MD: Dr. Dimas Martinez c/d This document was generated in part using voice recognition software, occasional wrong word or sound alike substitutions may have occurred due to the inherent limitations of voice recognition software. Read the chart carefully and rec ognize using context, where the substitutions have occurred. Although every effort was made to edit the content, uniforms sales representative and typing errors may occur ATTESTATION BY PHYSICIAN I have seen and examined the patient. I reviewed the documentation, medical decision making, and treatment plan as noted by the mid-level provider above. I agree with the findings and plan of care. PHONG PORRAS MD, ELIZABETH NP Nov 26, 2024 10:40
--- NOTE | 2024-11-26 11:46 | PN ---
INFECTIOUS DISEASE PROGRESS NOTE Date of Service: Nov 26, 2024 SUBJECTIVE: This 74 year old male patient is being seen today at bedside. A low grade fever 99.7 noted early this morning. Pending tagged WBC scan. He remains on antibiotics. Latest blood cultures remain negative. we continue to follow patient closely. PHYSICAL EXAM EYES: Anicteric. Pupils equal and reactive. HENT: No oral thrush seen, moist Oral mucosa, rash to certain area of face near mouth NECK: Supple, no JVD or thyromegaly. LUNGS: Good air entry. No rales, no rhonchi. CARDIOVASCULAR: S1, S2 regular. No murmur heard. ABDOMEN: Soft, non tender, bowel sounds present, no organomegaly CENTRAL NERVOUS SYSTEM: Awake, alert, oriented x 3. No focal deficits. SKIN: No rashes, no swelling. LYMPHATICS: No peripheral lymphadenopathy MUSCULOSKELETAL: No joint swelling, erythema or tenderness. EXTREMITIES: No cyanosis or clubbing BACK: No deformity, no pressure ulcer. GENITOURINARY: No dysuria or hematuria Vital Sign (Last 12 Hours) 11/25/24 11/26/24 11/26/24 11/26/24 23:50 03:53 07:35 07:38 Temp 99.3 99.7 98.8 Pulse 90 95 97 Resp 17 17 18 B/P (MAP) 122/60 112/59 115/63 Pulse Ox 99 97 97 97 O2 Delivery Room Air Room Air Room Air Room Air* O2 Flow Rate 0 FiO2 21 Intake & Output (last 24hrs) 11/25/24 11/25/24 11/26/24 15:00 23:00 07:00 Intake Total 300.0 ml Balance 300.0 ml LABS: Laboratory: Test 11/26/24 08:03 11/26/24 05:08 11/25/24 14:21 11/25/24 07:10 Range/Units Random Gentamicin Level 0.4 0.2-2.0 mcg/mL Whole Blood Glucose 115 H 70-110 MG/DL Gentamicin Level Trough 2.0 0.0-2.0 mcg/mL Gentamicin Level Peak 4.2 4.0-8.0 mcg/mL DIAGNOSTICS / RADIOLOGY: SPEC: [id number] MICHELLE: 11/17/24 STATUS: COMP REQ: [id number] RECD: 11/18/24-[address]: SIMA MATTHEWS SOURCE: BLOOD ENTR: 11/18/24-1405 [facility] DR: SAM FIGUEROA-C [facility]: BLOOD NONE ORDERED: AERO ID & SENS Procedure Result Jose Alejandro Date-Time AEROBIC ID & SENSITIVITIES Final 11/21/24-615 [facility] DESCRIPTION: DAY 1: GRAM POSITIVE COCCI IN CLUSTERS COAGULASE NEGATIVE STAPHYLOCOCCUS AEROBIC AND ANAEROBIC BOTTLES IDENTIFICATION AND SENSITIVITY TO FOLLOW STAPHYLOCOCCUS EPIDERMIDIS ROBERTO Barrera.I.CStef RX --------- ---- CLINDAMYCIN <=0.25 S ERYTHROMYCIN >4 R GENTAMICIN <=4 S VANCOMYCIN 1 S OXACILLIN AMRITA >2 R RIFAMPIN <=1 S TETRACYCLINE <=4 S TRIMETHOPRIM/SUFLAMETHOXAZOLE 2/38 S @ [facility] Test Performed at: [facility] [address], [place], [place] Medical Monitoring Manager: Joaquim Izquierdo D.O. ASSESSMENT: * Sepsis. * Diabetes mellitus. * NSTEMI. * Thrombocytopenia. * Hypertension. * Debility. * Gram positive bacteremia PLAN: * Continue antihypertensive. * continue antidiabetic. * Continue nutritional support. * Monitor electrolytes and correct as needed. * continue vancomycin as per pharmacy protocol * Continue rifampin 300mg BID * patient will need a total of 6 weeks of antibiotics * [facility] * Follow up with blood cultures * Continue with Gentamycin IV, * continue with CV recommendations * Pending tagged WBC scan * start lotrisone cream This case has been discussed with my supervising physician Dr. Montoya. the case has been discussed and agreed upon. ALBA CHAVARRIA [facility] Nov 26, 2024 11:46
[2024-11-26 11:48] VITALS: BP 120/59; PULSE 91; RESP 19
--- NOTE | 2024-11-26 12:00 | NUR ---
GENTAMICIN LEVEL REPORT TO PHARMACIST OPINA. CONTINUE WITH CURRENT REGIMEN
[2024-11-26 15:24] VITALS: BP 121/66; PULSE 91; RESP 18; TEMP 98.4
--- NOTE | 2024-11-26 17:04 | NUR ---
Pt would benefit from order for back brace due to severe back weakess and inability to maintain upright posture with minimal gait.
[2024-11-26] MEDS: VANCOMYCIN 1G/250ML KIT 250 ML IV SCH (18:22)
[2024-11-26 20:00] VITALS: BP 108/56; PULSE 85; RESP 16; TEMP 98.3; O2SAT 97
[2024-11-26] MEDS: CLOTRIMAZOLE/BETAMETHASONE DIP 45 GM CREAM.GM. TP SCH (21:00)
--- NOTE | 2024-11-26 21:54 | PN ---
SUBJECTIVE: The patient is status post aortic valve replacement with a Perceval stented valve. The patient has had two positive leg cultures on separate days out of 6 with Staphylococcus epidermidis. It is thought that perhaps the patient has aortic root abscess. The patient has been undergoing a white blood cell scan, the results of which are still pending. Continue antibiotics. Blood cultures have now been negative. TID: [id number] RECEIPT: [id number]
[2024-11-27] VITALS (9 sets, daily range): BP systolic 126–143; BP diastolic 61–68; PULSE 84–95; RESP 18–20; TEMP 98.2–100; O2SAT 96–98
[2024-11-27 05:56] LABS: IMMATURE GRANULOCYTE ABSOLUTE 0.04 K/uL (0-1); NUCLEATED RED BLOOD CELLS 0.0 % (0.0-0.19); PLATELET COUNT (AUTO) 128 K/uL (130-400); RED BLOOD CELL COUNT(AUTO) 2.48 MIL/uL (4.50-6.20); RED CELL DISTRIBUTION WIDTH 14.8 % (11.0-15.5); WHITE BLOOD COUNT (AUTO) 8.5 K/uL (4.8-10.8)
[2024-11-27 06:11] LABS: ASPARTATE AMINOTRANSFERASE 21.0 U/L (10-37); CREATININE 1.3 mg/dL (0.5-1.3); GLOMERULAR FILTR. RATE CALC 58.0 mL/min (>90); GLUCOSE,RANDOM 137.0 mg/dL (70-105); SODIUM SERUM 134.0 mmol/L (136-145); TOTAL PROTEIN, SERUM 5.5 g/dL (6.0-8.3); UREA NITROGEN, BLOOD 13.0 mg/dL (7-18)
--- NOTE | 2024-11-27 09:28 | PN ---
[facility] CARDIOLOGY PROGRESS NOTE Date Patient Seen: Nov 27, 2024 Time of Visit: 09:07 Interval History: This is a 74-year-old Latin-[place] African male with a past medical history of severe aortic stenosis status post minimally invasive aortic valve replacement with an extra-large Cristhian Jc bioprosthetic aortic valve 09/04/2016, essentially normal coronary arteries by prior cardiac catheterization 08/19/2016, hyperlipidemia, hypertension, type 2 diabetes mellitus who was admitted for management of recurrent sepsis. He presented with generalized body weakness, fever and diarrhea onset 48 hours prior to admission. He had been managed at [facility] recently for bacteremia and was discharge 10/30/2024, his reporting that he had recurrent fevers beginning one week after discharge from [facility] (he was admitted here 10/05/2024 through 10/15/2024 with bacteremia and a MYKE on 10/09/2024 demonstrated no evidence of valvular vegetation). On admission he did have a temperature of 101. The patient did have evidence of elevated troponin with admission troponin of 350, rising to 3303 on 11/18/2024 and trending down. He underwent a 2D echocardiogram on 11/18/2024 demonstrated normal LVEF of 55- 60%, mild concentric LVH and stage I diastolic dysfunction. The bioprosthetic a ortic valve was noted with peak aortic valve gradient of 41 mmHg, mean aortic valve gradient of 23 mmHg and dimensionless index of 1.42 and a small perivalvular leak. Blood cultures from 11/17/2024 and 11/19/2024 have grown Staphylococcus epidermidis (same organism from blood cultures done on prior admission 10/05/2024). Blood cultures from 11/21/2024 and 11/22/2024 are no growth thus far. Previously a transesophageal echo 10/09/2024 demonstrated no evidence of valvular vegetation. A chest CT angiogram 11/22/2024 demonstrated no definitive evidence of rodrigo-aortic valvular abscess. He underwent a repeat MYKE on 11/20/2024 demonstrating a 0.4 x 0.8 cm linear mobile vegetation on the anterior mitral valve leaflet, consistent with SBE. Prosthetic aortic valve demonstrated thickened leaflets, but no evidence of perforation, deterioration, or mobile/oscillating vegetation. There was trace central-valvular aortic insufficiency only. 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 He offers no orthopnea, PND, chest pain or other cardiac symptoms. The patient's platelet count has improved from 07562 on November 20, 2024 to 200611 this morning. White blood count has fallen from 16.1 on 11/20/2024 to 8.5 this morning. A tagged white blood cell study is pending to localize site of inflammation and provide confirmation that there is an aortic perivalvular abscess. Physical Examination: GENERAL: No acute distress. HEAD: Normal with no signs of head trauma. EYES: PERRLA, EOMI, conjunctiva and sclera normal. NECK: Supple without JVD. There is no tenderness, lymphadenopathy, or masses. No thyromegaly. Normal carotid upstrokes without bruits. LUNGS: Clear breath sounds bilaterally. No wheezes, or rhonchi. HEART: Normal rate and rhythm. Normal S1 and S2 there is a 2/6 mid peaking systolic ejection murmur louder at the left midsternal border. There is no diastolic murmur audible. There is no MR murmur audible. VASC: Peripheral pulses +2 bilaterally. EXT: No clubbing, cyanosis or edema. NEURO: Awake, alert, and oriented x3. No focal neurological deficits noted. Laboratory: Hematology Labs: Test 11/27/24 05:07 Range/Units White Blood Count 8.5 4.8-10.8 K/uL Red Blood Count 2.48 L 4.50-6.20 MIL/uL Hemoglobin 7.6 L 14.0-18.0 g/dL Hematocrit 23.1 L 42-54 % Mean Corpuscular Volume 93.1 79-99 fL Mean Corpuscular Hemoglobin 30.6 27.0-33.0 pg Mean Corpuscular Hemoglobin Concent 32.9 32.0-36.0 g/dL Red Cell Distribution Width 14.8 11.0-15.5 % Platelet Count 128 L 130-400 K/uL Mean Platelet Volume 10.4 7.5-10.5 fL Immature Granulocyte % (Auto) 0.5 0-1 % Neutrophils (%) (Auto) 77.2 H 40.0-77.0 % Lymphocytes (%) (Auto) 12.2 L 21.0-51.0 % Monocytes (%) (Auto) 8.5 3.0-13.0 % Eosinophils (%) (Auto) 1.2 0.0-8.0 % Basophils (%) (Auto) 0.4 0.0-5.0 % Neutrophils # (Auto) 6.6 1.8-7.7 K/uL Lymphocytes # (Auto) 1.0 1.0-4.8 K/uL Monocytes # (Auto) 0.7 0.1-1.0 K/uL Eosinophils # (Auto) 0.10 0.00-0.70 K/uL Basophils # (Auto) 0.03 0.00-0.20 K/uL Absolute Immature Granulocyte (auto 0.04 0-1 K/uL Nucleated Red Blood Cells 0.0 0.0-0.19 % Chemistry Labs: Test 11/27/24 05:12 11/27/24 05:07 Range/Units Whole Blood Glucose 133 H 70-110 MG/DL Sodium Level 134 L 136-145 mmol/L Potassium Level 4.1 3.5-5.1 mmol/L Chloride Level 100 L 101-111 mmol/L Carbon Dioxide Level 29 21-32 mmol/L Blood Urea Nitrogen 13 7-18 mg/dL Creatinine 1.3 0.5-1.3 mg/dL Glomerular Filtration Rate Calc 58 >90 mL/min Random Glucose 137 H 70-105 mg/dL Total Calcium 8.4 L 8.5-10.1 mg/dL Magnesium Level 1.60 L 1.80-2.40 mg/dL Total Bilirubin 0.5 0.2-1.0 mg/dL Aspartate Amino Transf (AST/SGOT) 21 10-37 U/L Alanine Aminotransferase (ALT/SGPT) 14 12-78 U/L Alkaline Phosphatase 60 50-136 U/L Total Protein 5.5 L 6.0-8.3 g/dL Albumin 1.8 L 3.5-5.0 g/dL Diagnostics / Radiology: 2D echocardiogram 11/18/2024: Conclusion LVEF is 55-60% with normal wall motion (volume measurements made by wiring technician are inaccurate). Stage I diastolic dysfunction with elevated mean LV filling pressure. The left atrium size is mildly dilated. Bioprosthetic aortic valve is present, probably a TAVR. Peak/Mean gradient 41/23 mmHg. Small perivalvular leak. Mitral regurgitation is mild. MYKE 11/20/2024: There was a 0.4 x 0.8 cm linear mobile vegetation on the anterior mitral valve leaflet, consistent with SBE. Prosthetic aortic valve demonstrates thickened leaflets, but no evidence of perforation, deterioration, or mobile or oscillating vegetation. There was trace central-valvular aortic insufficiency only. Repeat review of the MYKE suggests a perivalvular aortic abscess, extending down the aorta mitral curtain to the anterior mitral leaflet with a mitral leaflet vegetation. 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 Joaqium Rothman is appreciated, proceed with surgical management if abscess is confirmed. -Leukocytosis with WBC 16.1 on 11/20/2024 has improved to 8.5 this AM -blood cultures 11/17/2024 and 11/19/2024 are again growing Staph epidermidis. Repeat blood cultures from 11/21/2024 and 11/22/2024 demonstrate no growth thus far -CT of thoracic spine and lumbar spine demonstrated no apparent infectious process. There is fixation hardware in the lumbar spine. -Proceed with left heart cath in AM. The complications, risks, alternatives, and benefits were discussed with the patient in detail and he understands and wishes to proceed. Type [address] segment elevation MA, in the setting of sepsis, with troponin rising to 3303: Normal coronary arteries by prior cardiac catheterization 2017: Normal LVEF with an LVEF of 55-60% and normal wall motion on 2D echocardiogram 11/18/2024: -continue antiplatelet therapy and statin therapy Severe aortic stenosis status post minimally invasive aortic valve replacement with an extra-large Cristhian [place] bioprosthetic aortic valve 09/04/2016: -normal functioning bioprosthetic aortic valve by 2D echocardiogram 11/18/2024, and by transesophageal echo 11/20/2024, with evidence of perivalvular aortic abscess Comorbidities: C-spine myelomalacia Dementia MYKE 10/09/2024 demonstrated an LVEF of 45-50% and no valvular vegetations Hypertension Hyperlipidemia Type 2 diabetes mellitus JACOB FOLEY MD Nov 27, 2024 09:28
--- NOTE | 2024-11-27 10:09 | PN ---
[facility] PROGRESS NOTE Date of Service: Nov 27, 2024 Time of Service: 10:03 SUBJECTIVE: [ ] Mr. Bennett is a 74-year-old male that was seen and examined today on 11/17/2024. Patient is a poor historian and personal health due to past medical history of dementia. Patient's , Erma Thomas is at bedside. Patient says that patient came to the emergency department with a chief complaint of weakness. Onset was today at 5:00 p.m.. Location is to bilateral lower extremities. Duration is constant. Character is described as, "he was just sitting in the sofa all day and sleeping more than usual. There was no alleviating factors. There was no aggravating factors. Spouse reports associated fever and chills. 11/18/24 patient was seen earlier patient is lying in bed with family at bedside. Patient was discharged from LTAC for long-term IV antibiotics discharged home with oral antibiotics we will have ID on board. Patient denied chest pain or shortness for breath. 11/19/24 patient was seen patient denied chest pain shortness a breath. He complaints being constipated we will provide as needed lactulose. Patient waiting for CT lumbar spine examined to be done most likely on Wednesday. We will have Physical therapy work with patient as well. All questions and answers addressed appropriately. 11/20/2024 patient was seen earlier patient is lying in bed patient went for a MYKE this morning. We will follow-up results continues with triple antibiotics tolerating well cultures in process. Continues to work with physical therapy primary nurse reports no events overnight 11/21/2024 patient was seen earlier patient is lying in bed encourage out of bed to chair as tolerated. Continue with broad-spectrum antibiotics vancomycin Zosyn IV. 11/22/24 patient is seen and examined patient is lying in bed. Case management discharge planning LTAC patient is pending CT angio for abscess on valve. We will continue to monitor patient closely. 11/23/24 PATIENT IS SEEN AND EXAMINED PATIENT IS FULLY AWAKE ALERT ORIENTED X3.chest CT angiogram demonstrated no definitive evidence of rodrigo-aortic valvular abscess, DR. 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 11/24/24 patient was working with physical therapy ambulate with walker with assist. Patient will remain sitting in recliner as tolerated. Waiting for CV recommendations. Patient denied chest pain or shortness for breath patient reports having difficulty sleeping yesterday 11/25/24 late entry: The patient is waiting to get in shower, reports no new complaints. continue with Series of CT scans: given to perivalvular aortic abscess, continue with Broad spectrum antibiotics will follow stem sizer recommendations. 11/26/24 patient is seen patient reports no chest pain or shortness for breath p atient went for his last CT imaging we will follow-up stem sizer's recommendations. Primary nurse reports no events overnight 11/27/24 patient was seen patient was fully awake alert oriented x3 spouse at bedside. Denied chest pain shortness a breath. Continue with IV antibiotics WBCs improving down to8.5 Patient is having a white blood cell scan results are still pending. Sourcing Engineer's Dr. King we will proceed with left heart catheterization in the morning. REVIEW OF SYSTEMS CONSTITUTIONAL: Denies fevers, chills, or night sweats. No unintentional weight loss reported. NEUROLOGICAL: Denies headache, amaurosis fugax, motor weakness, sensory deficit, vertigo/spinning sensation, gait abnormalities, or tremors. ENT: No hearing loss, otalgia, otorrhea, rhinitis, rhinorrhea, hoarseness, or sore throat. CARDIOVASCULAR: Denies any exertional angina, dyspnea on exertion, orthopnea, paroxysmal nocturnal dyspnea, palpitations, life-threatening arrhythmias, claudication. PULMONARY: Denies any shortness of breath, cough, phlegm/sputum, hemoptysis, pleuritic chest pain. SLEEP: Denies morning headaches, daytime somnolence or napping. Denies difficulty falling asleep, staying asleep, waking from sleep. Denies knowledge of snoring. GASTROINTESTINAL: Denies any type of dysphagia to either liquids or solids. Denies nausea, vomiting, pyrosis, early satiety, abdominal pain, diarrhea, constipation, or changes in stool consistency or caliber. Denies coffee-ground emesis, hematemesis, hematochezia, or melanotic stools. GENITOURINARY: Denies frequency, urgency, nocturia, hematuria or incontinence (Storage/Irritative symptoms.) Low urinary stream, straining to void, urinary i ntermittency or hesitancy, splitting of the voiding stream, terminal dribbling. ENDOCRINOLOGIC: Denies polyuria, polydipsia, polyphagia or heat/cold intolerances. HEMATOLOGIC: Denies thrombophilia/previous clots, or coagulopathy/bleeding disorders. ONCOLOGIC: Denies personal history of malignancy. DERMATOLOGIC: Denies rashes or pruritus. PSYCHIATRIC: Denies any suicidal or homicidal ideation. Denies hallucinations. PHYSICAL EXAM GENERAL APPEARANCE: The patient is awake, alert, and oriented, in no acute cardiopulmonary distress. NEUROLOGICAL: Cranial nerves II-XII grossly intact. Motor is 5/5 in bilateral upper and lower extremities proximal to distal. No sensory deficits. HEENT: Face is symmetric. Pupils are equal and reactive. Extraocular movements are intact. NECK: Supple. No JVD. No thyromegaly. No submental, submandibular, pre- /postauricular, occipital or supraclavicular lymphadenopathy. CHEST: Normal chest expansion. No Telemetry. LUNGS: Absence of any rales, rhonchi or any wheezing. CARDIOVASCULAR: Regular. S1 and S2 normal. No appreciable rubs, murmurs or gallops. ABDOMEN: Soft, nontender, and nondistended. There is no rebound, voluntary guarding, or rigidity. : Deferred. No Emmanuel. EXTREMITIES: Non-edematous and not cyanotic. No clubbing. Good capillary refill. SKIN: No skin breakdown. Vital Signs (last 8hr) Date Time Temp Pulse Resp B/P (MAP) Pulse Ox O2 Delivery O2 Flow Rate FiO2 11/27/24 09:07 96 Room Air* 0 21 11/27/24 08:00 98.2 94 20 129/63 96 Room Air 11/27/24 04:00 100.0 94 20 126/62 95 Room Air LABS: Laboratory: Test 11/27/24 05:12 11/27/24 05:07 11/26/24 08:03 11/25/24 14:21 Range/Units Whole Blood Glucose 133 H 70-110 MG/DL White Blood Count 8.5 4.8-10.8 K/uL Red Blood Count 2.48 L 4.50-6.20 MIL/uL Hemoglobin 7.6 L 14.0-18.0 g/dL Hematocrit 23.1 L 42-54 % Mean Corpuscular Volume 93.1 79-99 fL Mean Corpuscular Hemoglobin 30.6 27.0-33.0 pg Mean Corpuscular Hemoglobin Concent 32.9 32.0-36.0 g/dL Red Cell Distribution Width 14.8 11.0-15.5 % Platelet Count 128 L 130-400 K/uL Mean Platelet Volume 10.4 7.5-10.5 fL Immature Granulocyte % (Auto) 0.5 0-1 % Neutrophils (%) (Auto) 77.2 H 40.0-77.0 % Lymphocytes (%) (Auto) 12.2 L 21.0-51.0 % Monocytes (%) (Auto) 8.5 3.0-13.0 % Eosinophils (%) (Auto) 1.2 0.0-8.0 % Basophils (%) (Auto) 0.4 0.0-5.0 % Neutrophils # (Auto) 6.6 1.8-7.7 K/uL Lymphocytes # (Auto) 1.0 1.0-4.8 K/uL Monocytes # (Auto) 0.7 0.1-1.0 K/uL Eosinophils # (Auto) 0.10 0.00-0.70 K/uL Basophils # (Auto) 0.03 0.00-0.20 K/uL Absolute Immature Granulocyte (auto 0.04 0-1 K/uL Nucleated Red Blood Cells 0.0 0.0-0.19 % Sodium Level 134 L 136-145 mmol/L Potassium Level 4.1 3.5-5.1 mmol/L Chloride Level 100 L 101-111 mmol/L Carbon Dioxide Level 29 21-32 mmol/L Blood Urea Nitrogen 13 7-18 mg/dL Creatinine 1.3 0.5-1.3 mg/dL Glomerular Filtration Rate Calc 58 >90 mL/min Random Glucose 137 H 70-105 mg/dL Total Calcium 8.4 L 8.5-10.1 mg/dL Magnesium Level 1.60 L 1.80-2.40 mg/dL Total Bilirubin 0.5 0.2-1.0 mg/dL Aspartate Amino Transf (AST/SGOT) 21 10-37 U/L Alanine Aminotransferase (ALT/SGPT) 14 12-78 U/L Alkaline Phosphatase 60 50-136 U/L Total Protein 5.5 L 6.0-8.3 g/dL Albumin 1.8 L 3.5-5.0 g/dL Random Gentamicin Level 0.4 0.2-2.0 mcg/mL Gentamicin Level Trough 2.0 0.0-2.0 mcg/mL Current Medications Medications (Trade) Dose Ordered Sig/Ann Marie Route PRN Reason Start Time Stop Time Status Last Admin Dose Admin Acetaminophen (TYLenol 325MG TAB) 650 mg Q6H PRN PO TEMPERATURE GREATER THAN 101.5 11/17/24 22:00 12/17/24 21:59 11/26/24 08:21 650 MG Aspirin (Aspirin 81mg Ec Tab) 81 mg DAILY PO 11/18/24 09:00 11/18/24 14:00 DC 11/18/24 09:48 81 MG Aspirin (Aspirin 81mg Ec Tab) 81 mg DAILY PO 11/19/24 09:00 12/19/24 08:59 11/27/24 09:01 81 MG Atorvastatin Calcium (LIPItor 40MG) 40 mg HS PO 11/18/24 21:00 12/18/24 20:59 11/26/24 20:54 40 MG Clotrimazole (Lotrisone Cream) 1 APPL TO FACE BID TP 11/26/24 21:00 12/26/24 20:59 11/27/24 09:02 1 GM Donepezil HCl (ARIcept 5MG TAB) 5 mg HS PO 11/18/24 21:00 12/18/24 20:59 11/26/24 20:54 5 MG Doxycycline Hyclate (Doxycycline Hyclate) 100 mg Q12H PO 11/18/24 12:00 11/20/24 13:14 DC 11/19/24 22:59 100 MG Enoxaparin Sodium (Lovenox) 40 mg DAILY SQ 11/18/24 09:00 11/18/24 01:27 DC Famotidine (Pepcid 20mg Tab) 20 mg DAILY PO 11/18/24 09:00 12/18/24 08:59 11/27/24 09:02 20 MG Gabapentin (NEURontin 300 MG CAP) 300 mg BID PO 11/18/24 21:00 12/18/24 20:59 11/27/24 09:01 300 MG Gentamicin Sulfate 60 mg/ Sodium Chloride 100 ml @ 200 mls/hr Q12H9 IV 11/26/24 09:00 12/10/24 08:59 11/26/24 21:06 200 MLS/HR Gentamicin Sulfate 60 mg/ Sodium Chloride 100 ml @ 200 mls/hr Q8H IV 11/24/24 14:00 11/25/24 17:17 DC 11/25/24 06:00 200 MLS/HR Gentamicin Sulfate (GENTAmicin PROTOCOL) 1 each AD IV 11/24/24 13:30 12/08/24 13:29 Home Med (Home Medication) BID OP 11/18/24 21:00 12/18/24 20:59 11/27/24 09:02 2 EACH Hydralazine HCl (APRESOLine 20MG INJ) 10 mg Q6H PRN IV For:SBP above 160;DBP above 90 11/17/24 22:00 12/17/24 21:59 Insulin Human Regular (humuLIN R 100 UNIT/ML 3ML) INSULIN SLIDING SCAL... ACHS SQ 11/18/24 07:30 12/18/24 07:29 11/26/24 18:23 2 UNIT Magnesium Sulfate 50 ml @ 0 mls/hr PROTOCOL PRN IV RX MONITORING LEVELS & DOSING 11/17/24 23:00 11/18/24 01:30 DC 11/18/24 00:22 25 MLS/HR Magnesium Sulfate 50 ml @ 0 mls/hr PROTOCOL PRN IV h 11/18/24 01:30 12/18/24 01:29 11/22/24 15:43 25 MLS/HR Morphine Sulfate (morPHINE 2MG SYG) 2 mg Q4H PRN IVP SEVERE PAIN (7-10) 11/17/24 22:00 11/23/24 00:59 DC Nitroglycerin (Nitrostat) 0.4 mg PROTOCOL PRN SL CHEST PAIN 11/17/24 22:00 12/17/24 21:59 Ondansetron HCl (zoFRAN 4MG INJ) 4 mg Q6H PRN IV NAUSEA/VOMITING 11/17/24 22:00 12/17/24 21:59 11/18/24 20:20 4 MG Pharmacy Profile Note (Lace Assessment) 1 each AD MISC 11/24/24 12:30 11/24/24 13:00 DC Pharmacy Profile Note (Lace Assessment) 1 each AD MISC 11/25/24 16:00 11/26/24 07:15 DC Pharmacy Profile Note (Pharmacy Communication) 1 each ONCE MISC 11/20/24 12:30 11/20/24 12:16 DC Piperacillin Sod/ Tazobactam Sod (Zosyn 3.375gm+NS 50ml) 3.375 gm Q8H IV 11/18/24 05:00 11/22/24 10:54 DC 11/22/24 05:35 3.375 GM Potassium Chloride 100 ml @ 100 mls/hr AD PRN IV POTASSIUM PROTOCOL 11/18/24 01:30 12/18/24 01:29 Potassium Chloride (K-Dur/Klor-Con 20meq) 20 meq AD PRN PO POTASSIUM PROTOCOL 11/18/24 01:30 12/18/24 01:29 11/22/24 17:43 20 MEQ Potassium Chloride (KCl 10% Elixir 20meq/15ml) 20 meq AD PRN PO POTASSIUM PROTOCOL 11/18/24 01:30 12/18/24 01:29 Rifampin (riFADin 300 MG CAP) 300 mg BID PO 11/20/24 21:00 11/30/24 20:59 11/27/24 09:01 300 MG Vancomycin HCl 100 ml @ 100 mls/hr BID@0600,1800 IV 11/26/24 06:00 11/26/24 07:19 DC 11/26/24 05:18 100 MLS/HR Vancomycin HCl 100 ml @ 100 mls/hr ONCE IV 11/25/24 22:30 11/25/24 23:59 DC 11/25/24 22:32 100 MLS/HR Vancomycin HCl 250 ml @ 83.333 mls/ hr Q24H IV 11/20/24 22:00 11/23/24 21:49 DC 11/22/24 21:44 83.333 MLS/HR Vancomycin HCl 250 ml @ 83.333 mls/ hr Q24H IV 11/23/24 22:00 11/24/24 12:24 DC 11/23/24 22:14 83.333 MLS/HR Vancomycin HCl 250 ml @ 125 mls/hr ONCE IV 11/25/24 16:30 11/25/24 18:30 DC 11/25/24 16:39 125 MLS/HR Vancomycin HCl 250 ml @ 125 mls/hr Q12H IV 11/26/24 18:00 12/06/24 17:59 11/27/24 06:23 125 MLS/HR Vancomycin HCl 250 ml @ 125 mls/hr Q24H IV 11/18/24 22:00 11/20/24 21:14 DC 11/19/24 21:20 125 MLS/HR Vancomycin HCl (Vancomycin Protocol) 1 each AD IV 11/17/24 21:30 11/20/24 13:14 DC DIAGNOSTICS / RADIOLOGY: [ ] ASSESSMENT: 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 CV: Dr. Joaquim Rothman white blood cell scan pending results Continue with broad spectrum antibiotics ID following. will need a total of 6 weeks of antibiotics blood cultures 11/17/2024 and 11/19/2024 are again growing Staph epidermidis. Repeat blood cultures from 11/21/2024 and 11/22/2024 demonstrate no growth thus far correctional counselor/case manager: LTAC once cleared by stem sizer waiting for final results of CT scans: Gallium Continue PT services , continue pain management. [ ] Admit: Medical-surgical floor condition: Guarded Status: Full code IVF: [facility] infectious disease, stem sizer's CV Antibiotics: Vancomycin IV, rifampin 300mg BID, Gentamin Q 12 hrs. Microbiology Case management for LTAC Labs cbc, cmp, mag+ Replace electrolytes as needed as per protocol to keep potassium above 4.0 magnesium 2.0. PT services out of bed to chair as tolerated Pain management: Morphine as needed Supportive measures: DVT ppx, GI ppx all questions answered Supervising MD: Dr. Mona Mayers c/d This document was generated in part using voice recognition software, occasional wrong word or sound alike substitutions may have occurred due to the inherent limitations of voice recognition software. Read the chart carefully and recognize using context, where the substitutions have occurred. Although every effort was made to edit the content, manager child and typing errors may occur ATTESTATION BY PHYSICIAN I have seen and examined the patient. I reviewed the documentation, medical decision making, and treatment plan as noted by the mid-level provider above. I agree with the findings and plan of care. PHONG PORRAS MD, ELIZABETH NP Nov 27, 2024 10:09
--- NOTE | 2024-11-27 10:24 | HMCIMG ---
EXAM: Whole body Ga-67 citrate scan. INDICATION: MYKE suspicious for periaortic valve abscess. REFERENCE EXAMINATION: None TECHNIQUE: 5 mCi of Ga-67 citrate intravenously. Images were acquired at approximately 3 hours from tracer administration. FINDINGS: The radiopharmaceutical is seen in the expected bio distribution. No abnormal uptake noted in the entire body. IMPRESSION: Normal scan with no evidence of abnormal uptake in the periaortic region. /[place]
--- NOTE | 2024-11-27 10:25 | HMCIMG ---
EXAM: Whole body Gallium Citrate infection imaging. INDICATION: MYKE suspicious for periaortic valve abscess. REFERENCE EXAMINATION: None TECHNIQUE: 5 mCi of Ga-67 Citrate injected intravenously. Delayed images were acquired approximately 3 hours from tracer administration. FINDINGS: The radiopharmaceutical is seen in the expected biodistribution. No abnormal uptake noted in the whole body images. IMPRESSION: Normal scan with no evidence of abnormal uptake in the periaortic region. /[place]
--- NOTE | 2024-11-27 11:27 | PN ---
INFECTIOUS DISEASE PROGRESS NOTE Date of Service: Nov 27, 2024 SUBJECTIVE: This 74 year old male patient is being seen today at bedside. He is awake, alert and oriented. No fever or chills. He denies chest pain or shortness of breath. Patient is laying in bed calm. Pending white blood cell study results. Patient is schedules for left heart cath for tomorrow AM. Patient remains on antibiotics, we continue to follow patient closely. PHYSICAL EXAM EYES: Anicteric. Pupils equal and reactive. HENT: No oral thrush seen, moist Oral mucosa, rash to certain area of face near mouth NECK: Supple, no JVD or thyromegaly. LUNGS: Good air entry. No rales, no rhonchi. CARDIOVASCULAR: S1, S2 regular. No murmur heard. ABDOMEN: Soft, non tender, bowel sounds present, no organomegaly CENTRAL NERVOUS SYSTEM: Awake, alert, oriented x 3. No focal deficits. SKIN: No rashes, no swelling. LYMPHATICS: No peripheral lymphadenopathy MUSCULOSKELETAL: No joint swelling, erythema or tenderness. EXTREMITIES: No cyanosis or clubbing BACK: No deformity, no pressure ulcer. GENITOURINARY: No dysuria or hematuria Vital Sign (Last 12 Hours) 11/27/24 11/27/24 11/27/24 11/27/24 00:00 04:00 08:00 09:07 Temp 99.1 100.0 98.2 Pulse 95 94 94 Resp 18 20 20 B/P (MAP) 126/62 126/62 129/63 Pulse Ox 92 95 96 96 O2 Delivery Room Air Room Air Room Air Room Air* O2 Flow Rate 0 FiO2 21 LABS: Laboratory: Test 11/27/24 08:58 11/27/24 05:12 11/27/24 05:07 11/26/24 08:03 Range/Units Gentamicin Level Peak 1.2 #L 4.0-8.0 mcg/mL Whole Blood Glucose 133 H 70-110 MG/DL White Blood Count 8.5 4.8-10.8 K/uL Red Blood Count 2.48 L 4.50-6.20 MIL/uL Hemoglobin 7.6 L 14.0-18.0 g/dL Hematocrit 23.1 L 42-54 % Mean Corpuscular Volume 93.1 79-99 fL Mean Corpuscular Hemoglobin 30.6 27.0-33.0 pg Mean Corpuscular Hemoglobin Concent 32.9 32.0-36.0 g/dL Red Cell Distribution Width 14.8 11.0-15.5 % Platelet Count 128 L 130-400 K/uL Mean Platelet Volume 10.4 7.5-10.5 fL Immature Granulocyte % (Auto) 0.5 0-1 % Neutrophils (%) (Auto) 77.2 H 40.0-77.0 % Lymphocytes (%) (Auto) 12.2 L 21.0-51.0 % Monocytes (%) (Auto) 8.5 3.0-13.0 % Eosinophils (%) (Auto) 1.2 0.0-8.0 % Basophils (%) (Auto) 0.4 0.0-5.0 % Neutrophils # (Auto) 6.6 1.8-7.7 K/uL Lymphocytes # (Auto) 1.0 1.0-4.8 K/uL Monocytes # (Auto) 0.7 0.1-1.0 K/uL Eosinophils # (Auto) 0.10 0.00-0.70 K/uL Basophils # (Auto) 0.03 0.00-0.20 K/uL Absolute Immature Granulocyte (auto 0.04 0-1 K/uL Nucleated Red Blood Cells 0.0 0.0-0.19 % Sodium Level 134 L 136-145 mmol/L Potassium Level 4.1 3.5-5.1 mmol/L Chloride Level 100 L 101-111 mmol/L Carbon Dioxide Level 29 21-32 mmol/L Blood Urea Nitrogen 13 7-18 mg/dL Creatinine 1.3 0.5-1.3 mg/dL Glomerular Filtration Rate Calc 58 >90 mL/min Random Glucose 137 H 70-105 mg/dL Total Calcium 8.4 L 8.5-10.1 mg/dL Magnesium Level 1.60 L 1.80-2.40 mg/dL Total Bilirubin 0.5 0.2-1.0 mg/dL Aspartate Amino Transf (AST/SGOT) 21 10-37 U/L Alanine Aminotransferase (ALT/SGPT) 14 12-78 U/L Alkaline Phosphatase 60 50-136 U/L Total Protein 5.5 L 6.0-8.3 g/dL Albumin 1.8 L 3.5-5.0 g/dL Random Gentamicin Level 0.4 0.2-2.0 mcg/mL Test 11/25/24 14:21 Range/Units Gentamicin Level Trough 2.0 0.0-2.0 mcg/mL DIAGNOSTICS / RADIOLOGY: SPEC: [id number] MICHELLE: 11/17/24 STATUS: COMP REQ: [id number] RECD: 11/18/24-[address] [facility] [address]: SIMA MATTHEWS SOURCE: BLOOD ENTR: 11/18/24-[address] [facility] [address]: SAM FIGUEROA PA-C SPDES: BLOOD NONE ORDERED: AERO ID & SENS Procedure Result Jose Alejandro Date-Time AEROBIC ID & SENSITIVITIES Final 11/21/24-0616 [facility] DESCRIPTION: DAY 1: GRAM POSITIVE COCCI IN CLUSTERS COAGULASE NEGATIVE STAPHYLOCOCCUS AEROBIC AND ANAEROBIC BOTTLES IDENTIFICATION AND SENSITIVITY TO FOLLOW STAPHYLOCOCCUS EPIDERMIDIS ROBERTO Barrera.I.CStef RX --------- ---- CLINDAMYCIN <=0.25 S ERYTHROMYCIN >4 R GENTAMICIN <=4 S VANCOMYCIN 1 S OXACILLIN AMRITA >2 R RIFAMPIN <=1 S TETRACYCLINE <=4 S TRIMETHOPRIM/SUFLAMETHOXAZOLE 2/38 S @ [facility] Test Performed at: [facility] [address], [place], [place] Medical [employer] Professional: Joaquim Izquierdo D.O. ASSESSMENT: * Sepsis. * Diabetes mellitus. * NSTEMI. * Thrombocytopenia. * Hypertension. * Debility. * Gram positive bacteremia PLAN: * Continue antihypertensive. * continue antidiabetic. * Continue nutritional support. * Monitor electrolytes and correct as needed. * continue vancomycin as per pharmacy protocol * Continue rifampin 300mg BID * patient will need a total of 6 weeks of antibiotics * Case management to Referral to [facility] * Follow up with blood cultures * Continue with Gentamycin IV, * continue with CV recommendations * Pending tagged WBC scan This case has been discussed with my supervising physician Dr. Montoya. The case has been discussed and agreed upon. ALBA CHAVARRIA [facility] Nov 27, 2024 11:27
[2024-11-28] VITALS (14 sets, daily range): BP systolic 67–151; BP diastolic 62–73; PULSE 76–103; RESP 16–20; TEMP 98.1–100; O2SAT 94
--- NOTE | 2024-11-28 01:56 | PN ---
TIME: 11:00 a.m. SUBJECTIVE: The patient is a 74-year-old gentleman status post Perceval aortic bioprosthetic valve. He has had positive blood cultures. Cardiac surgery has been consulted. Transesophageal echocardiogram was performed that did not show any evidence of big vegetation or any leakage surrounding the aortic valve. A white blood cell scan was performed today. We reviewed the scan and it is positive. The options will be redo AVR or long-term antibiotics. We will discuss with the patient, explained the benefits and the risks if we will get to that point. TID: [id number] RECEIPT: [id number]
[2024-11-28 05:35] LABS: IMMATURE GRANULOCYTE ABSOLUTE 0.05 K/uL (0-1); NUCLEATED RED BLOOD CELLS 0.0 % (0.0-0.19); PLATELET COUNT (AUTO) 141 K/uL (130-400); RED BLOOD CELL COUNT(AUTO) 2.66 MIL/uL (4.50-6.20); RED CELL DISTRIBUTION WIDTH 14.5 % (11.0-15.5); WHITE BLOOD COUNT (AUTO) 9.9 K/uL (4.8-10.8)
[2024-11-28 05:54] LABS: ASPARTATE AMINOTRANSFERASE 19.0 U/L (10-37); CREATININE 1.3 mg/dL (0.5-1.3); GLOMERULAR FILTR. RATE CALC 58.0 mL/min (>90); GLUCOSE,RANDOM 144.0 mg/dL (70-105); SODIUM SERUM 136.0 mmol/L (136-145); TOTAL PROTEIN, SERUM 5.8 g/dL (6.0-8.3); UREA NITROGEN, BLOOD 15.0 mg/dL (7-18)
[2024-11-28 05:56] LABS: INR 0.99 (0.85-1.15)
[2024-11-28 06:04] LABS: VANCOMYCIN TROUGH 27.6 UG/ML (10.0-20.0)
[2024-11-28] MEDS ORDERED: HEParin-NS 1,000 UNIT/500 ML 1,500 ML IV ONE (07:18)
[2024-11-28] MEDS ORDERED: IOHEXOL 350 MG/ML 100ML INFUS..BTL IV ONE (07:18)
[2024-11-28] MEDS ORDERED: LIDOCAINE HCL 400MG/20ML VIAL ONE (07:18)
[2024-11-28] MEDS ORDERED: NITROGLYCERIN 50MG VIAL ONE (07:19)
[2024-11-28] MEDS ORDERED: MIDAZOLAM HCL 1 MG/ML 2ML VIAL ONE (07:31)
[2024-11-28] MEDS ORDERED: HEParin-NS 1,000 UNIT/500 ML 500 ML IV ONE (07:31)
--- NOTE | 2024-11-28 09:45 | NUR ---
VS: 148/69, 98% SP02, 94 BPM, 98.1 TEMP.
--- NOTE | 2024-11-28 09:45 | PRN ---
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 A 6 Mauritian 45 cm long arterial sheath was inserted in the right femoral artery using a micropuncture technique with ultrasound guidance, with a front wall, first pass puncture. This was performed after fluoroscopic identification of bony landmarks to facilitate a more accurate puncture of the right common femoral artery. The arterial sheath was aspirated and flushed. A seven Mauritian venous sheath with hemostatic valve was inserted into the right common femoral vein using micropuncture technique with ultrasound guidance. A seven Mauritian S tipped [place]-Kerwin catheter was then advanced using balloon floatation and fluoroscopic guidance to the right heart with pressure measurements in the RA, RV, PA, and pulmonary capillary wedge positions. Cardiac output determinations were obtained. A 5 Mauritian pigtail catheter was then advanced over a J-tipped guidewire to the ascending aorta and was prolapsed across the bioprosthetic Cristhian valve into the left ventricle. The catheter was aspirated and flushed and pressure measurements were obtained. A left ventriculogram was then performed in a 30 CISNEROS projection. An aortogram was obtained in a 30 degree CISNEROS projection as well. A pullback procedure was then performed, and this catheter was removed over a J-tipped guidewire. A 6F JL-4 was then advanced to the ascending aorta over a J-tipped guidewire, was aspirated and flushed, and was used for selective left coronary angiograms in multiple obliquities. A JR-4 was advanced in a similar fashion to the ascending aorta over a J-tipped guidewire and was used for selective right coronary angiograms in multiple obliquities with findings as outlined below. A right common femoral angiogram was performed to assess suitability for Perclose suture closure and the Perclose device was deployed in standard fashion. Perclose suture closure was successful without bleeding or hematoma. The patient tolerated the procedure well and was returned to the holding area in stable condition. FINDINGS: RIGHT HEART CATHETERIZATION: RA pressure was 1 mm of mercury on the A-wave and 1 mm of mercury on the V-wave with a mean of 0 mm of mercury. RV pressure was 24/2 mm of mercury. PA pressure was 24/9 mm of mercury with a mean PA pressure 14 mm of mercury. Mean Pulmonary capillary wedge pressure was 11 mm of mercury Cardiac output with thermodilution was 5.7 L/min and cardiac index 3.4 L/min per meter squared LEFT HEART HEMODYNAMICS: The LVEDP was 14 mm of mercury. There was no gradient across the mitral valve. Aortic valve peak to peak gradient was 19 mm of mercury Aortic valve mean gradient was 20 mm of mercury. LEFT VENTRICULOGRAM: A left ventriculogram in a 30 degree CISNEROS projection demonstrated mild anterolateral hypokinesis in the LVEF estimate was 55%. There was no mitral valve regurgitation. AORTIC ROOT INJECTION: It aortic root injection demonstrated 1+ aortic insufficiency. It was difficult to discern whether this was central valvular perivalvular. CORONARY ANGIOGRAM: LEFT MAIN: The left main coronary was normal and there was no dampening or ventricularization of the pressure waveforms. LEFT ANTERIOR DESCENDING: The left anterior descending was normal in the proximal segment and there was two tandem 30% stenoses in the mid LAD. The distal LAD was normal. There were two high diagonal branches each of which had 50% proximal stenoses. The distal diagonal was normal. LEFT CIRCUMFLEX: The left circumflex was codominant with a 30% proximal and a 30% mid stenosis. The OM branches were normal. The posterolateral branch of the left circumflex was also normal. RAMUS INTERMEDIATE BRANCH: There was no ramus intermediate branch. RIGHT CORONARY ARTERY: The right coronary artery was codominant and had 30% and 30% tandem proximal stenoses, and a 30% mid stenosis but was otherwise normal. The PDA was normal. 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 Trivial aortic valve stenosis with peak to peak aortic valve gradient of 19 mm of mercury and mean aortic valve gradient of 20 mm of mercury. 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 No mitral stenosis or mitral regurgitation. Nonobstructive coronary artery disease with 30% and 30% tandem mid LAD stenoses, 50% diagonal one at 50% diagonal two stenoses, 30% proximal and mid left c ircumflex stenoses, and 30% proximal and mid RCA stenoses. RECOMMENDATION: Replacement of Cristhian Riparius bioprosthesis with new aortic bioprosthesis. COMPLICATIONS OF PROCEDURE: None, the patient tolerated the procedure well and was returned to his room in stable condition. HEMOSTASIS: Perclose suture closure was successful without bleeding or hematoma. ESTIMATED BLOOD LOSS: 10 mL. CONTRAST TOTAL: 130 mL. JACOB FOLEY MD Nov 28, 2024 09:45
--- NOTE | 2024-11-28 09:45 | NUR ---
PT IS BACK FROM SX. PT TO REMAIN FLAT FOR 4 HOURS. 1L NS @ 100 MLS/HR. PT IS AWAKE & ORIENTED X 4. NO S/S OF DISTRESS. R. GROIN 4X4 GAUZE SECURED WITH TEGADERM.
--- NOTE | 2024-11-28 09:55 | PN ---
[facility] PROGRESS NOTE Date of Service: Nov 28, 2024 Time of Service: 09:50 SUBJECTIVE: [ ] Mr. Bennett is a 74-year-old male that was seen and examined today on 11/17/2024. Patient is a poor historian and personal health due to past medical history of dementia. Patient's , Erma Thomas is at bedside. Patient says that patient came to the emergency department with a chief complaint of weakness. Onset was today at 5:00 p.m.. Location is to bilateral lower extremities. Duration is constant. Character is described as, "he was just sitting in the sofa all day and sleeping more than usual. There was no alleviating factors. There was no aggravating factors. Spouse reports associated fever and chills. 11/18/24 patient was seen earlier patient is lying in bed with family at bedside. Patient was discharged from LTAC for long-term IV antibiotics discharged home with oral antibiotics we will have ID on board. Patient denied chest pain or shortness for breath. 11/19/24 patient was seen patient denied chest pain shortness a breath. He complaints being constipated we will provide as needed lactulose. Patient waiting for CT lumbar spine examined to be done most likely on Wednesday. We will have Physical therapy work with patient as well. All questions and answers addressed appropriately. 11/20/2024 patient was seen earlier patient is lying in bed patient went for a MYKE this morning. We will follow-up results continues with triple antibiotics tolerating well cultures in process. Continues to work with physical therapy primary nurse reports no events overnight 11/21/2024 patient was seen earlier patient is lying in bed encourage out of bed to chair as tolerated. Continue with broad-spectrum antibiotics vancomycin Zosyn IV. 11/22/24 patient is seen and examined patient is lying in bed. Case management discharge planning LTAC patient is pending CT angio for abscess on valve. We will continue to monitor patient closely. 11/23/24 PATIENT IS SEEN AND EXAMINED PATIENT IS FULLY AWAKE ALERT ORIENTED X3.chest CT angiogram demonstrated no definitive evidence of rodrigo-aortic valvular abscess, DR. 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 11/24/24 patient was working with physical therapy ambulate with walker with assist. Patient will remain sitting in recliner as tolerated. Waiting for CV recommendations. Patient denied chest pain or shortness for breath patient reports having difficulty sleeping yesterday 11/25/24 late entry: The patient is waiting to get in shower, reports no new complaints. continue with Series of CT scans: given to perivalvular aortic abscess, continue with Broad spectrum antibiotics will follow surplus property disposal agent recommendations. 11/26/24 patient is seen patient reports no chest pain or shortness for breath p atient went for his last CT imaging we will follow-up surplus property disposal agent's recommendations. Primary nurse reports no events overnight 11/27/24 patient was seen patient was fully awake alert oriented x3 spouse at bedside. Denied chest pain shortness a breath. Continue with IV antibiotics WBCs improving down to8.5 Patient is having a white blood cell scan results are still pending. Agriculture Science Teacher's Dr. King we will proceed with left heart catheterization in the morning. 11/28/24 patient is going for a left heart catheterization this morning per surplus property disposal agent's WBCs scan was positive we will wait for final recommendations from CV and surplus property disposal agent's; with possible a redo AVR versus long-term antibiotics the patient return back from clinical laboratory technician without complications REVIEW OF SYSTEMS CONSTITUTIONAL: Denies fevers, chills, or night sweats. No unintentional weight loss reported. NEUROLOGICAL: Denies headache, amaurosis fugax, motor weakness, sensory de ficit, vertigo/spinning sensation, gait abnormalities, or tremors. ENT: No hearing loss, otalgia, otorrhea, rhinitis, rhinorrhea, hoarseness, or sore throat. CARDIOVASCULAR: Denies any exertional angina, dyspnea on exertion, orthopnea, paroxysmal nocturnal dyspnea, palpitations, life-threatening arrhythmias, claudication. PULMONARY: Denies any shortness of breath, cough, phlegm/sputum, hemoptysis, pleuritic chest pain. SLEEP: Denies morning headaches, daytime somnolence or napping. Denies difficulty falling asleep, staying asleep, waking from sleep. Denies knowledge of snoring. GASTROINTESTINAL: Denies any type of dysphagia to either liquids or solids. Denies nausea, vomiting, pyrosis, early satiety, abdominal pain, diarrhea, constipation, or changes in stool consistency or caliber. Denies coffee-ground emesis, hematemesis, hematochezia, or melanotic stools. GENITOURINARY: Denies frequency, urgency, nocturia, hematuria or incontinence (Storage/Irritative symptoms.) Low urinary stream, straining to void, urinary intermittency or hesitancy, splitting of the voiding stream, terminal dribbling. ENDOCRINOLOGIC: Denies polyuria, polydipsia, polyphagia or heat/cold intolerances. HEMATOLOGIC: Denies thrombophilia/previous clots, or coagulopathy/bleeding disorders. ONCOLOGIC: Denies personal history of malignancy. DERMATOLOGIC: Denies rashes or pruritus. PSYCHIATRIC: Denies any suicidal or homicidal ideation. Denies hallucinations. PHYSICAL EXAM GENERAL APPEARANCE: The patient is awake, alert, and oriented, in no acute cardiopulmonary distress. NEUROLOGICAL: Cranial nerves II-XII grossly intact. Motor is 5/5 in bilateral upper and lower extremities proximal to distal. No sensory deficits. HEENT: Face is symmetric. Pupils are equal and reactive. Extraocular movements are intact. NECK: Supple. No JVD. No thyromegaly. No submental, submandibular, pre- /postauricular, occipital or supraclavicular lymphadenopathy. CHEST: Normal chest expansion. No Telemetry. LUNGS: Absence of any rales, rhonchi or any wheezing. CARDIOVASCULAR: Regular. S1 and S2 normal. No appreciable rubs, murmurs or gallops. ABDOMEN: Soft, nontender, and nondistended. There is no rebound, voluntary guarding, or rigidity. : Deferred. No Emmanuel. EXTREMITIES: Non-edematous and not cyanotic. No clubbing. Good capillary refill. SKIN: No skin breakdown. Vital Signs (last 8hr) Date Time Temp Pulse Resp B/P (MAP) Pulse Ox O2 Delivery O2 Flow Rate FiO2 11/28/24 07:00 Room Air* 0 21 11/28/24 04:06 98.8 93 18 139/62 96 Room Air 21 LABS: Laboratory: Test 11/28/24 05:30 11/28/24 05:16 11/27/24 08:58 Range/Units White Blood Count 9.9 4.8-10.8 K/uL Red Blood Count 2.66 L 4.50-6.20 MIL/uL Hemoglobin 8.2 L 14.0-18.0 g/dL Hematocrit 25.1 L 42-54 % Mean Corpuscular Volume 94.4 79-99 fL Mean Corpuscular Hemoglobin 30.8 27.0-33.0 pg Mean Corpuscular Hemoglobin Concent 32.7 32.0-36.0 g/dL Red Cell Distribution Width 14.5 11.0-15.5 % Platelet Count 141 130-400 K/uL Mean Platelet Volume 10.1 7.5-10.5 fL Immature Granulocyte % (Auto) 0.5 0-1 % Neutrophils (%) (Auto) 80.6 H 40.0-77.0 % Lymphocytes (%) (Auto) 10.5 L 21.0-51.0 % Monocytes (%) (Auto) 7.0 3.0-13.0 % Eosinophils (%) (Auto) 1.2 0.0-8.0 % Basophils (%) (Auto) 0.2 0.0-5.0 % Neutrophils # (Auto) 8.0 H 1.8-7.7 K/uL Lymphocytes # (Auto) 1.0 1.0-4.8 K/uL Monocytes # (Auto) 0.7 0.1-1.0 K/uL Eosinophils # (Auto) 0.12 0.00-0.70 K/uL Basophils # (Auto) 0.02 0.00-0.20 K/uL Absolute Immature Granulocyte (auto 0.05 0-1 K/uL Nucleated Red Blood Cells 0.0 0.0-0.19 % Prothrombin Time 10.5 9.6-11.6 SEC Prothromb Time International Ratio 0.99 0.85-1.15 Activated Partial Thromboplast Time 37.9 H 26.3-35.5 SEC Sodium Level 136 136-145 mmol/L Potassium Level 3.8 3.5-5.1 mmol/L Chloride Level 100 L 101-111 mmol/L Carbon Dioxide Level 27 21-32 mmol/L Blood Urea Nitrogen 15 7-18 mg/dL Creatinine 1.3 0.5-1.3 mg/dL Glomerular Filtration Rate Calc 58 >90 mL/min Random Glucose 144 H 70-105 mg/dL Total Calcium 8.1 L 8.5-10.1 mg/dL Magnesium Level 1.80 1.80-2.40 mg/dL Total Bilirubin 0.5 0.2-1.0 mg/dL Aspartate Amino Transf (AST/SGOT) 19 10-37 U/L Alanine Aminotransferase (ALT/SGPT) 14 12-78 U/L Alkaline Phosphatase 67 50-136 U/L Total Protein 5.8 L 6.0-8.3 g/dL Albumin 1.9 L 3.5-5.0 g/dL Vancomycin Level Trough 27.6 *H 10.0-20.0 UG/ML Whole Blood Glucose 126 H 70-110 MG/DL Gentamicin Level Peak 1.2 #L 4.0-8.0 mcg/mL Current Medications Medications (Trade) Dose Ordered Sig/Ann Marie Route PRN Reason Start Time Stop Time Status Last Admin Dose Admin Acetaminophen (TYLenol 325MG TAB) 650 mg Q6H PRN PO TEMPERATURE GREATER THAN 101.5 11/17/24 22:00 12/17/24 21:59 11/26/24 08:21 650 MG Aspirin (Aspirin 81mg Ec Tab) 81 mg DAILY PO 11/18/24 09:00 11/18/24 14:00 DC 11/18/24 09:48 81 MG Aspirin (Aspirin 81mg Ec Tab) 81 mg DAILY PO 11/19/24 09:00 12/19/24 08:59 11/27/24 09:01 81 MG Atorvastatin Calcium (LIPItor 40MG) 40 mg HS PO 11/18/24 21:00 12/18/24 20:59 11/27/24 20:50 40 MG Clotrimazole (Lotrisone Cream) 1 APPL TO FACE BID TP 11/26/24 21:00 12/26/24 20:59 11/27/24 21:00 1 GM Donepezil HCl (ARIcept 5MG TAB) 5 mg HS PO 11/18/24 21:00 12/18/24 20:59 11/27/24 20:50 5 MG Doxycycline Hyclate (Doxycycline Hyclate) 100 mg Q12H PO 11/18/24 12:00 11/20/24 13:14 DC 11/19/24 22:59 100 MG Enoxaparin Sodium (Lovenox) 40 mg DAILY SQ 11/18/24 09:00 11/18/24 01:27 DC Famotidine (Pepcid 20mg Tab) 20 mg DAILY PO 11/18/24 09:00 12/18/24 08:59 11/27/24 09:02 20 MG Gabapentin (NEURontin 300 MG CAP) 300 mg BID PO 11/18/24 21:00 12/18/24 20:59 11/27/24 20:50 300 MG Gentamicin Sulfate 60 mg/ Sodium Chloride 100 ml @ 200 mls/hr Q12H9 IV 11/26/24 09:00 12/10/24 08:59 11/27/24 23:15 200 MLS/HR Gentamicin Sulfate 60 mg/ Sodium Chloride 100 ml @ 200 mls/hr Q8H IV 11/24/24 14:00 11/25/24 17:17 DC 11/25/24 06:00 200 MLS/HR Gentamicin Sulfate (GENTAmicin PROTOCOL) 1 each AD IV 11/24/24 13:30 12/08/24 13:29 Home Med (Home Medication) BID OP 11/18/24 21:00 12/18/24 20:59 11/27/24 09:02 2 EACH Hydralazine HCl (APRESOLine 20MG INJ) 10 mg Q6H PRN IV For:SBP above 160;DBP above 90 11/17/24 22:00 12/17/24 21:59 Insulin Human Regular (humuLIN R 100 UNIT/ML 3ML) INSULIN SLIDING SCAL... ACHS SQ 11/18/24 07:30 12/18/24 07:29 11/27/24 17:08 2 UNIT Magnesium Sulfate 50 ml @ 0 mls/hr PROTOCOL PRN IV RX MONITORING LEVELS & DOSING 11/17/24 23:00 11/18/24 01:30 DC 11/18/24 00:22 25 MLS/HR Magnesium Sulfate 50 ml @ 0 mls/hr PROTOCOL PRN IV h 11/18/24 01:30 12/18/24 01:29 11/27/24 10:30 25 MLS/HR Morphine Sulfate (morPHINE 2MG SYG) 2 mg Q4H PRN IVP SEVERE PAIN (7-10) 11/17/24 22:00 11/23/24 00:59 DC Nitroglycerin (Nitrostat) 0.4 mg PROTOCOL PRN SL CHEST PAIN 11/17/24 22:00 12/17/24 21:59 Ondansetron HCl (zoFRAN 4MG INJ) 4 mg Q6H PRN IV NAUSEA/VOMITING 11/17/24 22:00 12/17/24 21:59 11/18/24 20:20 4 MG Pharmacy Profile Note (Lace Assessment) 1 each AD MISC 11/24/24 12:30 11/24/24 13:00 DC Pharmacy Profile Note (Lace Assessment) 1 each AD MISC 11/25/24 16:00 11/26/24 07:15 DC Pharmacy Profile Note (Pharmacy Communication) 1 each ONCE MISC 11/20/24 12:30 11/20/24 12:16 DC Piperacillin Sod/ Tazobactam Sod (Zosyn 3.375gm+NS 50ml) 3.375 gm Q8H IV 11/18/24 05:00 11/22/24 10:54 DC 11/22/24 05:35 3.375 GM Potassium Chloride 100 ml @ 100 mls/hr AD PRN IV POTASSIUM PROTOCOL 11/18/24 01:30 12/18/24 01:29 Potassium Chloride (K-Dur/Klor-Con 20meq) 20 meq AD PRN PO POTASSIUM PROTOCOL 11/18/24 01:30 12/18/24 01:29 11/22/24 17:43 20 MEQ Potassium Chloride (KCl 10% Elixir 20meq/15ml) 20 meq AD PRN PO POTASSIUM PROTOCOL 11/18/24 01:30 12/18/24 01:29 Rifampin (riFADin 300 MG CAP) 300 mg BID PO 11/20/24 21:00 11/30/24 20:59 11/27/24 20:49 300 MG Sodium Chloride 1,000 ml @ 100 mls/hr Q10H IV 11/28/24 09:30 11/28/24 19:29 Vancomycin HCl 100 ml @ 100 mls/hr BID@0600,1800 IV 11/26/24 06:00 11/26/24 07:19 DC 11/26/24 05:18 100 MLS/HR Vancomycin HCl 100 ml @ 100 mls/hr ONCE IV 11/25/24 22:30 11/25/24 23:59 DC 11/25/24 22:32 100 MLS/HR Vancomycin HCl 250 ml @ 83.333 mls/ hr Q24H IV 11/20/24 22:00 11/23/24 21:49 DC 11/22/24 21:44 83.333 MLS/HR Vancomycin HCl 250 ml @ 83.333 mls/ hr Q24H IV 11/23/24 22:00 11/24/24 12:24 DC 11/23/24 22:14 83.333 MLS/HR Vancomycin HCl 250 ml @ 125 mls/hr ONCE IV 11/25/24 16:30 11/25/24 18:30 DC 11/25/24 16:39 125 MLS/HR Vancomycin HCl 250 ml @ 125 mls/hr Q12H IV 11/26/24 18:00 11/28/24 06:20 DC 11/27/24 17:09 125 MLS/HR Vancomycin HCl 250 ml @ 125 mls/hr Q24H IV 11/29/24 06:00 12/09/24 05:59 Vancomycin HCl 250 ml @ 125 mls/hr Q24H IV 11/18/24 22:00 11/20/24 21:14 DC 11/19/24 21:20 125 MLS/HR Vancomycin HCl (Vancomycin Protocol) 1 each AD IV 11/17/24 21:30 11/20/24 13:14 DC DIAGNOSTICS / RADIOLOGY: [ ] ASSESSMENT: 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 Joaquim Rothman white blood cell scan was positive: plan to redo AVR or termite helper antibiotics Continue with broad spectrum antibiotics ID following. will need a total of 6 weeks of antibiotics blood cultures 11/17/2024 and 11/19/2024 are again growing Staph epidermidis. Repeat blood cultures from 11/21/2024 and 11/22/2024 demonstrate no growth thus far pillowcase cutter: LTAC once cleared by surplus property disposal agent Continue PT services , continue pain management. [ ] Admit: Medical-surgical floor condition: Guarded Status: Full code IVF: heplock Consultants infectious disease, surplus property disposal agent's CV Antibiotics: Vancomycin IV, rifampin 300mg BID, Gentamicin Q 12 hrs. Microbiology Case management for LTAC accepted waiting for surplus property disposal agent and CV further workup Labs cbc, cmp, mag+ Replace electrolytes as needed as per protocol to keep potassium above 4.0 magnesium 2.0. PT services out of bed to chair as tolerated Pain management: Morphine as needed Supportive measures: DVT ppx, GI ppx all questions answered Supervising MD: Dr.Ellis Martinez c/d This document was generated in part using voice recognition software, occasional wrong word or sound alike substitutions may have occurred due to the inherent limitations of voice recognition software. Read the chart carefully and recognize using context, where the substitutions have occurred. Although every effort was made to edit the content, hospice community liaison and typing errors may occur ATTESTATION BY PHYSICIAN I have seen and examined the patient. I reviewed the documentation, medical decision making, and treatment plan as noted by the mid-level provider above. I agree with the findings and plan of care. PHONG PORRAS MD, ELIZABETH NP Nov 28, 2024 09:55
[2024-11-28] MEDS: 0.9%NACL 1000ML 1,000 ML IV SCH (10:15)
--- NOTE | 2024-11-28 10:41 | NUR ---
SPOKE TO DR. JACOBSEN REGARDING NEW CONSULT. DR. JACOBSEN VERBALIZED HE HAS BEEN SEEING PT A NM PROCEDURE WAS DONE ON THIS PT AND PER RESULTS THERE IS NO ABSCESS. HE WAS MADE AWARE CONSULT WAS INPUT TODAY AFTER R&L HEART CATH. DR. JACOBSEN WILL SPEAK TO DR. FOLEY PER OUR TELEPHONE CONVERSATION.
--- NOTE | 2024-11-28 14:12 | HMCIMG ---
CLINICAL INFORMATION Pneumonia COMPARISON None. TECHNIQUE Frontal view chest. FINDINGS Lines and tubes: None Lungs: Pulmonary vascular congestion with increased interstitial opacities. No focal dense consolidation. Pleura: Unremarkable. No effusion or pneumothorax. Cardiomediastinal Silhouette: Prior endovascular aortic valve replacement. Calcified thoracic aorta. Bones: Normal for age. Soft Tissues: Normal. IMPRESSION Pulmonary vascular congestion with increased interstitial opacities, which may represent pulmonary edema or atypical infection. No focal dense consolidation. /[place]
--- NOTE | 2024-11-28 14:25 | NUR ---
PT WAS PLACED ON A SEMI FOWLERS POSITION. PT VOIDED 400 MLS IN URINAL OF NOW. NO S/S OF DISTRESS. NO HEMATOMA NOTED ON PTS R. GROIN. DRESSING DRY & INTACT. AT BEDSIDE.
--- NOTE | 2024-11-28 17:58 | PN ---
INFECTIOUS DISEASE PROGRESS NOTE Date of Service: Nov 28, 2024 SUBJECTIVE: This 74 year old male patient is being seen today at bedside. No fever or chills. No nausea or vomiting. Patient is awake, alert and oriented. He status post left heart cath, patient laying in bed. We continue to follow patient and follow final CV and tapper hand recommendations. Patient to continue on antibiotics. Went over plan of care with and patient at bedside, stated understanding. PHYSICAL EXAM EYES: Anicteric. Pupils equal and reactive. HENT: No oral thrush seen, moist Oral mucosa, rash to certain area of face near mouth NECK: Supple, no JVD or thyromegaly. LUNGS: Good air entry. No rales, no rhonchi. CARDIOVASCULAR: S1, S2 regular. No murmur heard. ABDOMEN: Soft, non tender, bowel sounds present, no organomegaly CENTRAL NERVOUS SYSTEM: Awake, alert, oriented x 3. No focal deficits. SKIN: No rashes, no swelling. LYMPHATICS: No peripheral lymphadenopathy MUSCULOSKELETAL: No joint swelling, erythema or tenderness. EXTREMITIES: no hematoma noted to right groin, dressing in place BACK: No deformity, no pressure ulcer. GENITOURINARY: No dysuria or hematuria Vital Sign (Last 12 Hours) 11/28/24 11/28/24 11/28/24 07:00 12:00 16:00 Temp 98.6 98.2 Pulse 97 76 Resp 20 20 B/P (MAP) 148/68 118/73 Pulse Ox 95 95 O2 Delivery Room Air* Room Air Room Air O2 Flow Rate 0 FiO2 21 Intake & Output (last 24hrs) 11/27/24 11/27/24 11/28/24 15:00 23:00 07:00 Intake Total 340.0 ml Balance 340.0 ml LABS: Laboratory: Test 11/28/24 16:49 11/28/24 05:30 11/27/24 08:58 Range/Units Whole Blood Glucose 178 H 70-110 MG/DL White Blood Count 9.9 4.8-10.8 K/uL Red Blood Count 2.66 L 4.50-6.20 MIL/uL Hemoglobin 8.2 L 14.0-18.0 g/dL Hematocrit 25.1 L 42-54 % Mean Corpuscular Volume 94.4 79-99 fL Mean Corpuscular Hemoglobin 30.8 27.0-33.0 pg Mean Corpuscular Hemoglobin Concent 32.7 32.0-36.0 g/dL Red Cell Distribution Width 14.5 11.0-15.5 % Platelet Count 141 130-400 K/uL Mean Platelet Volume 10.1 7.5-10.5 fL Immature Granulocyte % (Auto) 0.5 0-1 % Neutrophils (%) (Auto) 80.6 H 40.0-77.0 % Lymphocytes (%) (Auto) 10.5 L 21.0-51.0 % Monocytes (%) (Auto) 7.0 3.0-13.0 % Eosinophils (%) (Auto) 1.2 0.0-8.0 % Basophils (%) (Auto) 0.2 0.0-5.0 % Neutrophils # (Auto) 8.0 H 1.8-7.7 K/uL Lymphocytes # (Auto) 1.0 1.0-4.8 K/uL Monocytes # (Auto) 0.7 0.1-1.0 K/uL Eosinophils # (Auto) 0.12 0.00-0.70 K/uL Basophils # (Auto) 0.02 0.00-0.20 K/uL Absolute Immature Granulocyte (auto 0.05 0-1 K/uL Nucleated Red Blood Cells 0.0 0.0-0.19 % Prothrombin Time 10.5 9.6-11.6 SEC Prothromb Time International Ratio 0.99 0.85-1.15 Activated Partial Thromboplast Time 37.9 H 26.3-35.5 SEC Sodium Level 136 136-145 mmol/L Potassium Level 3.8 3.5-5.1 mmol/L Chloride Level 100 L 101-111 mmol/L Carbon Dioxide Level 27 21-32 mmol/L Blood Urea Nitrogen 15 7-18 mg/dL Creatinine 1.3 0.5-1.3 mg/dL Glomerular Filtration Rate Calc 58 >90 mL/min Random Glucose 144 H 70-105 mg/dL Total Calcium 8.1 L 8.5-10.1 mg/dL Magnesium Level 1.80 1.80-2.40 mg/dL Total Bilirubin 0.5 0.2-1.0 mg/dL Aspartate Amino Transf (AST/SGOT) 19 10-37 U/L Alanine Aminotransferase (ALT/SGPT) 14 12-78 U/L Alkaline Phosphatase 67 50-136 U/L Total Protein 5.8 L 6.0-8.3 g/dL Albumin 1.9 L 3.5-5.0 g/dL Vancomycin Level Trough 27.6 *H 10.0-20.0 UG/ML Gentamicin Level Peak 1.2 #L 4.0-8.0 mcg/mL DIAGNOSTICS / RADIOLOGY: SPEC: [id number] MICHELLE: 11/17/24 STATUS: COMP REQ: [id number] RECD: 11/18/24 [facility] DR: SIMA MATTHEWS SOURCE: BLOOD ENTR: 11/18/24 [facility] DR: SAM FIGUEROAC SPDESC: BLOOD NONE ORDERED: AERO ID & SENS ------ ------ Procedure Result Jose Alejandro Date-Time AEROBIC ID & SENSITIVITIES Final 11/21/24-0616 [facility] DESCRIPTION: DAY 1: GRAM POSITIVE COCCI IN CLUSTERS COAGULASE NEGATIVE STAPHYLOCOCCUS AEROBIC AND ANAEROBIC BOTTLES IDENTIFICATION AND SENSITIVITY TO FOLLOW STAPHYLOCOCCUS EPIDERMIDIS ROBERTO CASTELLANO M.I.CStef RX --------- ---- CLINDAMYCIN <=0.25 S ERYTHROMYCIN >4 R GENTAMICIN <=4 S VANCOMYCIN 1 S OXACILLIN AMRITA >2 R RIFAMPIN <=1 S TETRACYCLINE <=4 S TRIMETHOPRIM/SUFLAMETHOXAZOLE 2/38 S @ [facility] Test Performed at: [facility] [address], [place], [place] Medical Tensioning Machine Operator: Joaquim Izquierdo D.O. ASSESSMENT: * Sepsis. * Diabetes mellitus. * NSTEMI. * Thrombocytopenia. * Hypertension. * Debility. * Gram positive bacteremia PLAN: * Continue antihypertensive. * continue antidiabetic. * Continue nutritional support. * Monitor electrolytes and correct as needed. * continue vancomycin as per pharmacy protocol * Continue rifampin 300mg BID * patient will need a total of 6 weeks of antibiotics * Case management to Referral to [facility] * Follow up with blood cultures * Continue with Gentamycin IV, * continue with CV recommendations This case has been discussed with my supervising physician Dr. Montoya. The case has been discussed and agreed upon. ALBA CHAVARRIA [facility] Nov 28, 2024 17:58
[2024-11-29] VITALS (11 sets, daily range): BP systolic 119–148; BP diastolic 55–78; PULSE 88–105; RESP 17–18; TEMP 98–99.8; O2SAT 95–96
[2024-11-29 05:16] LABS: IMMATURE GRANULOCYTE ABSOLUTE 0.04 K/uL (0-1); NUCLEATED RED BLOOD CELLS 0.0 % (0.0-0.19); PLATELET COUNT (AUTO) 131 K/uL (130-400); RED BLOOD CELL COUNT(AUTO) 2.51 MIL/uL (4.50-6.20); RED CELL DISTRIBUTION WIDTH 14.6 % (11.0-15.5); WHITE BLOOD COUNT (AUTO) 8.1 K/uL (4.8-10.8)
[2024-11-29 05:33] LABS: ASPARTATE AMINOTRANSFERASE 19.0 U/L (10-37); CREATININE 1.4 mg/dL (0.5-1.3); GLOMERULAR FILTR. RATE CALC 53.0 mL/min (>90); GLUCOSE,RANDOM 152.0 mg/dL (70-105); SODIUM SERUM 136.0 mmol/L (136-145); TOTAL PROTEIN, SERUM 5.5 g/dL (6.0-8.3); UREA NITROGEN, BLOOD 11.0 mg/dL (7-18); VANCOMYCIN TROUGH 17.0 UG/ML (10.0-20.0)
[2024-11-29] MEDS: VANCOMYCIN 1G/250ML KIT 250 ML IV SCH (06:40)
--- NOTE | 2024-11-29 08:49 | PN ---
[facility] CARDIOLOGY PROGRESS NOTE Date Patient Seen: Nov 29, 2024 Time of Visit: 08:36 Interval History: This is a 74-year-old Latin-Malag[place] male with a past medical history of severe aortic stenosis status post minimally invasive aortic valve replacement with an extra-large Cristhian Jc bioprosthetic aortic valve 09/04/2016, essentially normal coronary arteries by prior cardiac catheterization 08/19/2016, hyperlipidemia, hypertension, type 2 diabetes mellitus who was admitted for management of recurrent sepsis. He presented with generalized body weakness, fever and diarrhea onset 48 hours prior to admission. He had been managed at [facility] recently for bacteremia and was discharge 10/30/2024, his reporting that he had recurrent fevers beginning one week after discharge from [facility] (he was admitted here 10/05/2024 through 10/15/2024 with bacteremia and a MYKE on 10/09/2024 demonstrated no evidence of valvular vegetation). On admission he did have a temperature of 101. The patient did have evidence of elevated troponin with admission troponin of 350, rising to 3303 on 11/18/2024 and trending down. He underwent a 2D echocardiogram on 11/18/2024 demonstrated normal LVEF of 55- 60%, mild concentric LVH and stage I diastolic dysfunction. The bioprosthetic a ortic valve was noted with peak aortic valve gradient of 41 mmHg, mean aortic valve gradient of 23 mmHg and dimensionless index of 1.42 and a small perivalvular leak. Blood cultures from 11/17/2024 and 11/19/2024 have grown Staphylococcus epidermidis (same organism from blood cultures done on prior admission 10/05/2024). Blood cultures from 11/21/2024 and 11/22/2024 have demonstrated no growth. Previously a transesophageal echo 10/09/2024 demonstrated no evidence of valvular vegetation. A chest CT angiogram 11/22/2024 demonstrated no definitive evidence of rodrigo-aortic valvular abscess. He underwent a repeat MYKE on 11/20/2024 demonstrating a 0.4 x 0.8 cm linear mobile vegetation on the anterior mitral valve leaflet, consistent with SBE. Prosthetic aortic valve demonstrated thickened leaflets, but no evidence of perforation, deterioration, or mobile/oscillating vegetation. There was trace central-valvular aortic insufficiency only. 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 The patient also underwent a gallium scan on 11/24/2024 demonstrating normal scan with no increased uptake in the periaortic region. Finally, the patient has undergone a right and left heart catheterization on 11/28/2024 demonstrating trivial aortic valve stenosis and nonobstructive coronary artery disease (30% and 30% tandem mid LAD stenoses, 50% diagonal one at 50% diagonal two stenoses, 30% proximal and mid left circumflex stenoses, and 30% proximal and mid RCA stenoses) He offers no orthopnea or PND, offers no chest pain. Temperature of 100.0 this morning. Telemetry has demonstrated a normal sinus rhythm and no arrhythmias have been identified. Physical Examination: GENERAL: No acute distress. HEAD: Normal with no signs of head trauma. EYES: PERRLA, EOMI, conjunctiva and sclera normal. NECK: Supple without JVD. There is no tenderness, lymphadenopathy, or masses. No thyromegaly. Normal carotid upstrokes without bruits. LUNGS: Clear breath sounds bilaterally. No wheezes, or rhonchi. HEART: Normal rate and rhythm. Normal S1 and S2 there is a 2/6 mid peaking systolic ejection murmur louder at the left midsternal border. There is no diastolic murmur audible. There is no MR murmur audible. VASC: Peripheral pulses +2 bilaterally. Right groin cath site is soft and free of hematoma EXT: No clubbing, cyanosis or edema. NEURO: Awake, alert, and oriented x3. No focal neurological deficits noted. Laboratory: Hematology Labs: Test 11/29/24 05:05 Range/Units White Blood Count 8.1 4.8-10.8 K/uL Red Blood Count 2.51 L 4.50-6.20 MIL/uL Hemoglobin 7.7 L 14.0-18.0 g/dL Hematocrit 23.5 L 42-54 % Mean Corpuscular Volume 93.6 79-99 fL Mean Corpuscular Hemoglobin 30.7 27.0-33.0 pg Mean Corpuscular Hemoglobin Concent 32.8 32.0-36.0 g/dL Red Cell Distribution Width 14.6 11.0-15.5 % Platelet Count 131 130-400 K/uL Mean Platelet Volume 9.9 7.5-10.5 fL Immature Granulocyte % (Auto) 0.5 0-1 % Neutrophils (%) (Auto) 80.3 H 40.0-77.0 % Lymphocytes (%) (Auto) 9.3 L 21.0-51.0 % Monocytes (%) (Auto) 7.7 3.0-13.0 % Eosinophils (%) (Auto) 2.0 0.0-8.0 % Basophils (%) (Auto) 0.2 0.0-5.0 % Neutrophils # (Auto) 6.5 1.8-7.7 K/uL Lymphocytes # (Auto) 0.8 L 1.0-4.8 K/uL Monocytes # (Auto) 0.6 0.1-1.0 K/uL Eosinophils # (Auto) 0.16 0.00-0.70 K/uL Basophils # (Auto) 0.02 0.00-0.20 K/uL Absolute Immature Granulocyte (auto 0.04 0-1 K/uL Nucleated Red Blood Cells 0.0 0.0-0.19 % White Cell Morphology Comment See comments Chemistry Labs: Test 11/29/24 05:05 11/29/24 05:04 Range/Units Sodium Level 136 136-145 mmol/L Potassium Level 4.2 3.5-5.1 mmol/L Chloride Level 103 101-111 mmol/L Carbon Dioxide Level 28 21-32 mmol/L Blood Urea Nitrogen 11 7-18 mg/dL Creatinine 1.4 H 0.5-1.3 mg/dL Glomerular Filtration Rate Calc 53 >90 mL/min Random Glucose 152 H 70-105 mg/dL Total Calcium 8.1 L 8.5-10.1 mg/dL Magnesium Level 2.00 1.80-2.40 mg/dL Total Bilirubin 0.3 # 0.2-1.0 mg/dL Aspartate Amino Transf (AST/SGOT) 19 10-37 U/L Alanine Aminotransferase (ALT/SGPT) 13 12-78 U/L Alkaline Phosphatase 53 50-136 U/L Total Protein 5.5 L 6.0-8.3 g/dL Albumin 1.7 L 3.5-5.0 g/dL Whole Blood Glucose 147 H 70-110 MG/DL Coagulation Labs: Test 11/28/24 05:30 Range/Units Prothrombin Time 10.5 9.6-11.6 SEC Prothromb Time International Ratio 0.99 0.85-1.15 Activated Partial Thromboplast Time 37.9 H 26.3-35.5 SEC Diagnostics / Radiology: 2D echocardiogram 11/18/2024: Conclusion LVEF is 55-60% with normal wall motion (volume measurements made by commercial service technician are inaccurate). Stage I diastolic dysfunction with elevated mean LV filling pressure. The left atrium size is mildly dilated. Bioprosthetic aortic valve is present, probably a TAVR. Peak/Mean gradient 41/23 mmHg. Small perivalvular leak. Mitral regurgitation is mild. MYKE 11/20/2024: There was a 0.4 x 0.8 cm linear mobile vegetation on the anterior mitral valve leaflet, consistent with SBE. Prosthetic aortic valve demonstrates thickened leaflets, but no evidence of perforation, deterioration, or mobile or oscillating vegetation. There was trace central-valvular aortic insufficiency only. Repeat review of the MYKE suggests a perivalvular aortic abscess, extending down the aorta mitral curtain to the anterior mitral leaflet with a mitral leaflet vegetation. 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 Repeat blood cultures from 11/21/2024 and 11/22/2024 have demonstrated no growth -CT of thoracic spine and lumbar spine demonstrated no apparent infectious process. There is fixation hardware in the lumbar spine -Recommendation is to proceed with replacement of Critshian Jc bioprosthesis with new aortic bioprosthesis Type [address] segment elevation [place], in the setting of sepsis, with troponin rising to 3303: Nonobstructive coronary artery disease (30% and 30% tandem mid LAD stenoses, 50% diagonal one at 50% diagonal two stenoses, 30% proximal and mid left circumflex stenoses, and 30% proximal and mid RCA stenoses) by cardiac catheterization 11/28/2024: Normal LVEF with an LVEF of 55-60% and normal wall motion on 2D echocardiogram 11/18/2024: -continue antiplatelet therapy and statin therapy Severe aortic stenosis status post minimally invasive aortic valve replacement with an extra-large Cristhian Jc bioprosthetic aortic valve 09/04/2016: -normal functioning bioprosthetic aortic valve by 2D echocardiogram 11/18/2024, and by transesophageal echo 11/20/2024, with evidence of perivalvular aortic abscess -Recommendation is to proceed with replacement of Cristhian [place] bioprosthesis with new aortic bioprosthesis Normocytic normochromic anemia: -begin reducing frequency of phlebotomy -begin folate and thiamine supplementation and multiple vitamin -check iron studies and supplement of depleted Comorbidities: C-spine myelomalacia Dementia MYKE 10/09/2024 demonstrated an LVEF of 45-50% and no valvular vegetations Hypertension Hyperlipidemia Type 2 diabetes mellitus JACOB FOLEY MD Nov 29, 2024 08:49
[2024-11-29] MEDS: MULTIVITS,STRESS FORMULA/ZINC 1 TABLET PO SCH (09:00)
[2024-11-29 10:21] LABS: % IRON SATURATION 17.7 % (30-44); IRON, SERUM 25.0 mcg/dL (65-175)
--- NOTE | 2024-11-29 11:00 | PN ---
[facility] PROGRESS NOTE Date of Service: Nov 29, 2024 Time of Service: 10:58 SUBJECTIVE: [ ] Mr. Bennett is a 74-year-old male that was seen and examined today on 11/17/2024. Patient is a poor historian and personal health due to past medical history of dementia. Patient's , Erma Thomas is at bedside. Patient says that patient came to the emergency department with a chief complaint of weakness. Onset was today at 5:00 p.m.. Location is to bilateral lower extremities. Duration is constant. Character is described as, "he was just sitting in the sofa all day and sleeping more than usual. There was no alleviating factors. There was no aggravating factors. Spouse reports associated fever and chills. 11/18/24 patient was seen earlier patient is lying in bed with family at bedside. Patient was discharged from LTAC for long-term IV antibiotics discharged home with oral antibiotics we will have ID on board. Patient denied chest pain or shortness for breath. 11/19/24 patient was seen patient denied chest pain shortness a breath. He complaints being constipated we will provide as needed lactulose. Patient waiting for CT lumbar spine examined to be done most likely on Wednesday. We will have Physical therapy work with patient as well. All questions and answers addressed appropriately. 11/20/2024 patient was seen earlier patient is lying in bed patient went for a MYKE this morning. We will follow-up results continues with triple antibiotics tolerating well cultures in process. Continues to work with physical therapy primary nurse reports no events overnight 11/21/2024 patient was seen earlier patient is lying in bed encourage out of bed to chair as tolerated. Continue with broad-spectrum antibiotics vancomycin Zosyn IV. 11/22/24 patient is seen and examined patient is lying in bed. Case management discharge planning LTAC patient is pending CT angio for abscess on valve. We will continue to monitor patient closely. 11/23/24 PATIENT IS SEEN AND EXAMINED PATIENT IS FULLY AWAKE ALERT ORIENTED X3.chest CT angiogram demonstrated no definitive evidence of rodrigo-aortic valvular abscess, DR. 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 11/24/24 patient was working with physical therapy ambulate with walker with assist. Patient will remain sitting in recliner as tolerated. Waiting for CV recommendations. Patient denied chest pain or shortness for breath patient reports having difficulty sleeping yesterday 11/25/24 late entry: The patient is waiting to get in shower, reports no new complaints. continue with Series of CT scans: given to perivalvular aortic abscess, continue with Broad spectrum antibiotics will follow executive vice president and chief financial officer recommendations. 11/26/24 patient is seen patient reports no chest pain or shortness for breath p atient went for his last CT imaging we will follow-up executive vice president and chief financial officer's recommendations. Primary nurse reports no events overnight 11/27/24 patient was seen patient was fully awake alert oriented x3 spouse at bedside. Denied chest pain shortness a breath. Continue with IV antibiotics WBCs improving down to8.5 Patient is having a white blood cell scan results are still pending. Director Of Curriculum And Instruction's Dr. King we will proceed with left heart catheterization in the morning. 11/28/24 patient is going for a left heart catheterization this morning per executive vice president and chief financial officer's WBCs scan was positive we will wait for final recommendations from CV and executive vice president and chief financial officer's; with possible a redo AVR versus long-term antibiotics the patient return back from quality control lab technician without complications 11/29/24 patient is seen earlier patient is fully awake alert oriented x3 denied chest pain. at bedside we will wait for CV and executive vice president and chief financial officer's recommendation if patient will need surgery. Continues with broad-spectrum antibiotics low hgb: will start IV venofer. REVIEW OF SYSTEMS CONSTITUTIONAL: Denies fevers, chills, or night sweats. No unintentional weight loss reported. NEUROLOGICAL: Denies headache, amaurosis fugax, motor weakness, sensory deficit, vertigo/spinning sensation, gait abnormalities, or tremors. ENT: No hearing loss, otalgia, otorrhea, rhinitis, rhinorrhea, hoarseness, or sore throat. CARDIOVASCULAR: Denies any exertional angina, dyspnea on exertion, orthopnea, paroxysmal nocturnal dyspnea, palpitations, life-threatening arrhythmias, claudication. PULMONARY: Denies any shortness of breath, cough, phlegm/sputum, hemoptysis, pleuritic chest pain. SLEEP: Denies morning headaches, daytime somnolence or napping. Denies difficulty falling asleep, staying asleep, waking from sleep. Denies knowledge of snoring. GASTROINTESTINAL: Denies any type of dysphagia to either liquids or solids. Denies nausea, vomiting, pyrosis, early satiety, abdominal pain, diarrhea, constipation, or changes in stool consistency or caliber. Denies coffee-ground emesis, hematemesis, hematochezia, or melanotic stools. GENITOURINARY: Denies frequency, urgency, nocturia, hematuria or incontinence (Storage/Irritative symptoms.) Low urinary stream, straining to void, urinary intermittency or hesitancy, splitting of the voiding stream, terminal dribbling. ENDOCRINOLOGIC: Denies polyuria, polydipsia, polyphagia or heat/cold intolerances. HEMATOLOGIC: Denies thrombophilia/previous clots, or coagulopathy/bleeding disorders. ONCOLOGIC: Denies personal history of malignancy. DERMATOLOGIC: Denies rashes or pruritus. PSYCHIATRIC: Denies any suicidal or homicidal ideation. Denies hallucinations. PHYSICAL EXAM GENERAL APPEARANCE: The patient is awake, alert, and oriented, in no acute cardiopulmonary distress. NEUROLOGICAL: Cranial nerves II-XII grossly intact. Motor is 5/5 in bilateral upper and lower extremities proximal to distal. No sensory deficits. HEENT: Face is symmetric. Pupils are equal and reactive. Extraocular movements are intact. NECK: Supple. No JVD. No thyromegaly. No submental, submandibular, pre- /postauricular, occipital or supraclavicular lymphadenopathy. CHEST: Normal chest expansion. No Telemetry. LUNGS: Absence of any rales, rhonchi or any wheezing. CARDIOVASCULAR: Regular. S1 and S2 normal. No appreciable rubs, murmurs or gallops. ABDOMEN: Soft, nontender, and nondistended. There is no rebound, voluntary guarding, or rigidity. : Deferred. No Emmanuel. EXTREMITIES: Non-edematous and not cyanotic. No clubbing. Good capillary refill. SKIN: No skin breakdown. Vital Signs (last 8hr) Date Time Temp Pulse Resp B/P (MAP) Pulse Ox O2 Delivery O2 Flow Rate FiO2 11/29/24 08:00 99.0 92 17 142/62 96 Room Air 11/29/24 04:00 98.2 89 18 119/62 96 Room Air LABS: Laboratory: Test 8/13/25 05:05 11/29/24 05:04 11/28/24 05:30 Range/Units White Blood Count 8.1 4.8-10.8 K/uL Red Blood Count 2.51 L 4.50-6.20 MIL/uL Hemoglobin 7.7 L 14.0-18.0 g/dL Hematocrit 23.5 L 42-54 % Mean Corpuscular Volume 93.6 79-99 fL Mean Corpuscular Hemoglobin 30.7 27.0-33.0 pg Mean Corpuscular Hemoglobin Concent 32.8 32.0-36.0 g/dL Red Cell Distribution Width 14.6 11.0-15.5 % Platelet Count 131 130-400 K/uL Mean Platelet Volume 9.9 7.5-10.5 fL Immature Granulocyte % (Auto) 0.5 0-1 % Neutrophils (%) (Auto) 80.3 H 40.0-77.0 % Lymphocytes (%) (Auto) 9.3 L 21.0-51.0 % Monocytes (%) (Auto) 7.7 3.0-13.0 % Eosinophils (%) (Auto) 2.0 0.0-8.0 % Basophils (%) (Auto) 0.2 0.0-5.0 % Neutrophils # (Auto) 6.5 1.8-7.7 K/uL Lymphocytes # (Auto) 0.8 L 1.0-4.8 K/uL Monocytes # (Auto) 0.6 0.1-1.0 K/uL Eosinophils # (Auto) 0.16 0.00-0.70 K/uL Basophils # (Auto) 0.02 0.00-0.20 K/uL Absolute Immature Granulocyte (auto 0.04 0-1 K/uL Nucleated Red Blood Cells 0.0 0.0-0.19 % White Cell Morphology Comment See comments Sodium Level 136 136-145 mmol/L Potassium Level 4.2 3.5-5.1 mmol/L Chloride Level 103 101-111 mmol/L Carbon Dioxide Level 28 21-32 mmol/L Blood Urea Nitrogen 11 7-18 mg/dL Creatinine 1.4 H 0.5-1.3 mg/dL Glomerular Filtration Rate Calc 53 >90 mL/min Random Glucose 152 H 70-105 mg/dL Total Calcium 8.1 L 8.5-10.1 mg/dL Magnesium Level 2.00 1.80-2.40 mg/dL Iron Level 25 #L 65-175 mcg/dL Total Iron Binding Capacity 141 L 250-450 mcg/dL Percent Iron Saturation 17.7 L 30-44 % Total Bilirubin 0.3 # 0.2-1.0 mg/dL Aspartate Amino Transf (AST/SGOT) 19 10-37 U/L Alanine Aminotransferase (ALT/SGPT) 13 12-78 U/L Alkaline Phosphatase 53 50-136 U/L Total Protein 5.5 L 6.0-8.3 g/dL Albumin 1.7 L 3.5-5.0 g/dL Vitamin B12 Level 707 193-986 pg/mL Folic Acid (LAB) 10.90 2-20 ng/mL Vancomycin Level Trough 17.0 # 10.0-20.0 UG/ML Whole Blood Glucose 147 H 70-110 MG/DL Prothrombin Time 10.5 9.6-11.6 SEC Prothromb Time International Ratio 0.99 0.85-1.15 Activated Partial Thromboplast Time 37.9 H 26.3-35.5 SEC Current Medications Medications (Trade) Dose Ordered Sig/Ann Marie Route PRN Reason Start Time Stop Time Status Last Admin Dose Admin Acetaminophen (TYLenol 325MG TAB) 650 mg Q6H PRN PO TEMPERATURE GREATER THAN 101.5 11/17/24 22:00 12/17/24 21:59 11/26/24 08:21 650 MG Aspirin (Aspirin 81mg Ec Tab) 81 mg DAILY PO 11/18/24 09:00 11/18/24 14:00 DC 11/18/24 09:48 81 MG Aspirin (Aspirin 81mg Ec Tab) 81 mg DAILY PO 11/19/24 09:00 12/19/24 08:59 11/29/24 09:01 81 MG Atorvastatin Calcium (LIPItor 40MG) 40 mg HS PO 11/18/24 21:00 12/18/24 20:59 11/28/24 21:27 40 MG Clotrimazole (Lotrisone Cream) 1 APPL TO FACE BID TP 11/26/24 21:00 12/26/24 20:59 11/29/24 09:00 1 GM Donepezil HCl (ARIcept 5MG TAB) 5 mg HS PO 11/18/24 21:00 12/18/24 20:59 11/28/24 21:26 5 MG Doxycycline Hyclate (Doxycycline Hyclate) 100 mg Q12H PO 11/18/24 12:00 11/20/24 13:14 DC 11/19/24 22:59 100 MG Enoxaparin Sodium (Lovenox) 40 mg DAILY SQ 11/18/24 09:00 11/18/24 01:27 DC Famotidine (Pepcid 20mg Tab) 20 mg DAILY PO 11/18/24 09:00 12/18/24 08:59 11/29/24 09:01 20 MG Gabapentin (NEURontin 300 MG CAP) 300 mg BID PO 11/18/24 21:00 12/18/24 20:59 11/29/24 09:01 300 MG Gentamicin Sulfate 60 mg/ Sodium Chloride 100 ml @ 200 mls/hr Q12H9 IV 11/26/24 09:00 12/10/24 08:59 11/29/24 09:35 200 MLS/HR Gentamicin Sulfate 60 mg/ Sodium Chloride 100 ml @ 200 mls/hr Q8H IV 11/24/24 14:00 11/25/24 17:17 DC 11/25/24 06:00 200 MLS/HR Gentamicin Sulfate (GENTAmicin PROTOCOL) 1 each AD IV 11/24/24 13:30 12/08/24 13:29 Home Med (Home Medication) BID OP 11/18/24 21:00 12/18/24 20:59 11/28/24 21:37 1 EACH Hydralazine HCl (APRESOLine 20MG INJ) 10 mg Q6H PRN IV For:SBP above 160;DBP above 90 11/17/24 22:00 12/17/24 21:59 Insulin Human Regular (humuLIN R 100 UNIT/ML 3ML) INSULIN SLIDING SCAL... ACHS SQ 11/18/24 07:30 12/18/24 07:29 11/28/24 21:36 3 UNIT Magnesium Sulfate 50 ml @ 0 mls/hr PROTOCOL PRN IV RX MONITORING LEVELS & DOSING 11/17/24 23:00 11/18/24 01:30 DC 11/18/24 00:22 25 MLS/HR Magnesium Sulfate 50 ml @ 0 mls/hr PROTOCOL PRN IV h 11/18/24 01:30 12/18/24 01:29 11/28/24 14:46 25 MLS/HR Morphine Sulfate (morPHINE 2MG SYG) 2 mg Q4H PRN IVP SEVERE PAIN (7-10) 11/17/24 22:00 11/23/24 00:59 DC Nitroglycerin (Nitrostat) 0.4 mg PROTOCOL PRN SL CHEST PAIN 11/17/24 22:00 12/17/24 21:59 Ondansetron HCl (zoFRAN 4MG INJ) 4 mg Q6H PRN IV NAUSEA/VOMITING 11/17/24 22:00 12/17/24 21:59 11/18/24 20:20 4 MG Pharmacy Profile Note (Lace Assessment) 1 each AD MISC 11/24/24 12:30 11/24/24 13:00 DC Pharmacy Profile Note (Lace Assessment) 1 each AD MISC 11/25/24 16:00 11/26/24 07:15 DC Pharmacy Profile Note (Pharmacy Communication) 1 each ONCE MISC 11/20/24 12:30 11/20/24 12:16 DC Piperacillin Sod/ Tazobactam Sod (Zosyn 3.375gm+NS 50ml) 3.375 gm Q8H IV 11/18/24 05:00 11/22/24 10:54 DC 11/22/24 05:35 3.375 GM Potassium Chloride 100 ml @ 100 mls/hr AD PRN IV POTASSIUM PROTOCOL 11/18/24 01:30 12/18/24 01:29 Potassium Chloride (K-Dur/Klor-Con 20meq) 20 meq AD PRN PO POTASSIUM PROTOCOL 11/18/24 01:30 12/18/24 01:29 11/28/24 17:18 20 MEQ Potassium Chloride (KCl 10% Elixir 20meq/15ml) 20 meq AD PRN PO POTASSIUM PROTOCOL 11/18/24 01:30 12/18/24 01:29 Rifampin (riFADin 300 MG CAP) 300 mg BID PO 11/20/24 21:00 11/30/24 20:59 11/29/24 09:01 300 MG Sodium Chloride 1,000 ml @ 100 mls/hr Q10H IV 11/28/24 09:30 11/28/24 19:29 DC 11/28/24 10:15 100 MLS/HR Vancomycin HCl 100 ml @ 100 mls/hr BID@0600,1800 IV 11/26/24 06:00 11/26/24 07:19 DC 11/26/24 05:18 100 MLS/HR Vancomycin HCl 100 ml @ 100 mls/hr ONCE IV 11/25/24 22:30 11/25/24 23:59 DC 11/25/24 22:32 100 MLS/HR Vancomycin HCl 250 ml @ 83.333 mls/ hr Q24H IV 11/20/24 22:00 11/23/24 21:49 DC 11/22/24 21:44 83.333 MLS/HR Vancomycin HCl 250 ml @ 83.333 mls/ hr Q24H IV 11/23/24 22:00 11/24/24 12:24 DC 11/23/24 22:14 83.333 MLS/HR Vancomycin HCl 250 ml @ 125 mls/hr ONCE IV 11/25/24 16:30 11/25/24 18:30 DC 11/25/24 16:39 125 MLS/HR Vancomycin HCl 250 ml @ 125 mls/hr Q12H IV 11/26/24 18:00 11/28/24 06:20 DC 11/27/24 17:09 125 MLS/HR Vancomycin HCl 250 ml @ 125 mls/hr Q24H IV 11/29/24 06:00 12/09/24 05:59 11/29/24 06:40 125 MLS/HR Vancomycin HCl 250 ml @ 125 mls/hr Q24H IV 11/18/24 22:00 11/20/24 21:14 DC 11/19/24 21:20 125 MLS/HR Vancomycin HCl (Vancomycin Protocol) 1 each AD IV 11/17/24 21:30 11/20/24 13:14 DC Vitamin B Complex/ Vit C/Vit E/Zinc (Stresstab/Zinc) 1 tab DAILY PO 11/29/24 09:00 12/29/24 08:59 DIAGNOSTICS / RADIOLOGY: [ ] ASSESSMENT: 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 Joaquim Rothman white blood cell scan was positive: leukocytoses resolved Continue with broad spectrum antibiotics ID following. will need a total of 6 weeks of antibiotics labs reviewed low Hgb 7.7 will start IV venofer. 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 [ ] Admit: Medical-surgical floor condition: Guarded Status: Full code IVF: heplock Consultants infectious disease, executive vice president and chief financial officer's CV Antibiotics: Vancomycin IV, rifampin 300mg BID, Gentamicin Q 12 hrs. Microbiology Case management for LTAC accepted waiting for executive vice president and chief financial officer and CV further workup Labs cbc, cmp, mag+ Replace electrolytes as needed as per protocol to keep potassium above 4.0 magnesium 2.0. PT services out of bed to chair as tolerated Pain management: Morphine as needed Supportive measures: DVT ppx, GI ppx all questions answered Supervising MD: Dr.Ellis Martinez c/d This document was generated in part using voice recognition software, occasional wrong word or sound alike substitutions may have occurred due to the inherent limitations of voice recognition software. Read the chart carefully and recognize using context, where the substitutions have occurred. Although every effort was made to edit the content, flame degreaser and typing errors may occur ATTESTATION BY PHYSICIAN I have seen and examined the patient. I reviewed the documentation, medical decision making, and treatment plan as noted by the mid-level provider above. I agree with the findings and plan of care. PHONG PORRAS MD, ELIZABETH NP Nov 29, 2024 11:00
--- NOTE | 2024-11-29 15:45 | NUR ---
DC PLAN SPOKE TO NURSE SAID DR BOURNE SAID NO SURGERY AT THIS TIME PLAN FOR 6 WEEKS OF IV ABX. OKAY TO START RE AUTH FOR LTAC. UPDATES SENT TO LTAC. Addendum: 11/29/24 at 1548 by JULIANN DELGADO RN CM Amended: Links added.
--- NOTE | 2024-11-29 17:41 | PN ---
INFECTIOUS DISEASE PROGRESS NOTE Date of Service: Nov 29, 2024 SUBJECTIVE: This 74 year old male patient is being seen today at bedside. He is awake, alert and oriented x3. has no fever or chills. No nausea or vomiting. Patient is being seen today at bedside. States he feel well. He remains on antibiotics. PHYSICAL EXAM EYES: Anicteric. Pupils equal and reactive. HENT: No oral thrush seen, moist Oral mucosa, rash to certain area of face near mouth NECK: Supple, no JVD or thyromegaly. LUNGS: Good air entry. No rales, no rhonchi. CARDIOVASCULAR: S1, S2 regular. No murmur heard. ABDOMEN: Soft, non tender, bowel sounds present, no organomegaly CENTRAL NERVOUS SYSTEM: Awake, alert, oriented x 3. No focal deficits. SKIN: No rashes, no swelling. LYMPHATICS: No peripheral lymphadenopathy MUSCULOSKELETAL: No joint swelling, erythema or tenderness. EXTREMITIES: no hematoma noted to right groin, dressing in place BACK: No deformity, no pressure ulcer. GENITOURINARY: No dysuria or hematuria Vital Sign (Last 12 Hours) 11/29/24 11/29/24 11/29/24 11/29/24 08:00 08:00 12:00 12:04 Temp 99.0 98.1 Pulse 92 92 105 Resp 17 18 17 B/P (MAP) 142/62 138/66 121/60 Pulse Ox 96 96 97 80 O2 Delivery Room Air* Room Air Room Air O2 Flow Rate 0 FiO2 21 11/29/24 11/29/24 11/29/24 16:05 16:06 16:07 Temp 98.2 Pulse 90 94 99 Resp 17 18 18 B/P (MAP) 148/78 146/76 134/71 Pulse Ox 99 98 98 O2 Delivery Room Air Room Air Room Air Intake & Output (last 24hrs) 11/28/24 11/28/24 11/29/24 15:00 23:00 07:00 Intake Total 0 ml Output Total 200 ml Balance 0 ml -200 ml LABS: Laboratory: Test 11/29/24 15:24 11/29/24 11:04 11/29/24 05:05 11/28/24 05:30 Range/Units Whole Blood Glucose 229 H 70-110 MG/DL Gentamicin Level Peak 2.5 #L 4.0-8.0 mcg/mL White Blood Count 8.1 4.8-10.8 K/uL Red Blood Count 2.51 L 4.50-6.20 MIL/uL Hemoglobin 7.7 L 14.0-18.0 g/dL Hematocrit 23.5 L 42-54 % Mean Corpuscular Volume 93.6 79-99 fL Mean Corpuscular Hemoglobin 30.7 27.0-33.0 pg Mean Corpuscular Hemoglobin Concent 32.8 32.0-36.0 g/dL Red Cell Distribution Width 14.6 11.0-15.5 % Platelet Count 131 130-400 K/uL Mean Platelet Volume 9.9 7.5-10.5 fL Immature Granulocyte % (Auto) 0.5 0-1 % Neutrophils (%) (Auto) 80.3 H 40.0-77.0 % Lymphocytes (%) (Auto) 9.3 L 21.0-51.0 % Monocytes (%) (Auto) 7.7 3.0-13.0 % Eosinophils (%) (Auto) 2.0 0.0-8.0 % Basophils (%) (Auto) 0.2 0.0-5.0 % Neutrophils # (Auto) 6.5 1.8-7.7 K/uL Lymphocytes # (Auto) 0.8 L 1.0-4.8 K/uL Monocytes # (Auto) 0.6 0.1-1.0 K/uL Eosinophils # (Auto) 0.16 0.00-0.70 K/uL Basophils # (Auto) 0.02 0.00-0.20 K/uL Absolute Immature Granulocyte (auto 0.04 0-1 K/uL Nucleated Red Blood Cells 0.0 0.0-0.19 % White Cell Morphology Comment See comments Sodium Level 136 136-145 mmol/L Potassium Level 4.2 3.5-5.1 mmol/L Chloride Level 103 101-111 mmol/L Carbon Dioxide Level 28 21-32 mmol/L Blood Urea Nitrogen 11 7-18 mg/dL Creatinine 1.4 H 0.5-1.3 mg/dL Glomerular Filtration Rate Calc 53 >90 mL/min Random Glucose 152 H 70-105 mg/dL Total Calcium 8.1 L 8.5-10.1 mg/dL Magnesium Level 2.00 1.80-2.40 mg/dL Iron Level 25 #L 65-175 mcg/dL Total Iron Binding Capacity 141 L 250-450 mcg/dL Percent Iron Saturation 17.7 L 30-44 % Total Bilirubin 0.3 # 0.2-1.0 mg/dL Aspartate Amino Transf (AST/SGOT) 19 10-37 U/L Alanine Aminotransferase (ALT/SGPT) 13 12-78 U/L Alkaline Phosphatase 53 50-136 U/L Total Protein 5.5 L 6.0-8.3 g/dL Albumin 1.7 L 3.5-5.0 g/dL Vitamin B12 Level 707 193-986 pg/mL Folic Acid (LAB) 10.90 2-20 ng/mL Vancomycin Level Trough 17.0 # 10.0-20.0 UG/ML Prothrombin Time 10.5 9.6-11.6 SEC Prothromb Time International Ratio 0.99 0.85-1.15 Activated Partial Thromboplast Time 37.9 H 26.3-35.5 SEC DIAGNOSTICS / RADIOLOGY: SPEC: [id number] MICHELLE: 11/17/24 STATUS: COMP REQ: [id number] RECD: 11/18/[address] [facility] [address]: SIMA MATTHEWS SOURCE: BLOOD ENTR: 11/18/[address]: SAM FIGUEROA PA-C SPDESC: BLOOD NONE ORDERED: AERO ID & SENS Procedure Result Jose Alejandro Date-Time AEROBIC ID & SENSITIVITIES Final 11/21/24-[address] [facility] COLONY DESCRIPTION: DAY 1: GRAM POSITIVE COCCI IN CLUSTERS COAGULASE NEGATIVE STAPHYLOCOCCUS AEROBIC AND ANAEROBIC BOTTLES IDENTIFICATION AND SENSITIVITY TO FOLLOW STAPHYLOCOCCUS EPIDERMIDIS STA PASQUALEER M.I.C. RX --------- ---- CLINDAMYCIN <=0.25 S ERYTHROMYCIN >4 R GENTAMICIN <=4 S VANCOMYCIN 1 S OXACILLIN MARITA >2 R RIFAMPIN <=1 S TETRACYCLINE <=4 S TRIMETHOPRIM/SUFLAMETHOXAZOLE 2/38 S @ [facility] Test Performed at: [facility] [address], [place], [place] Medical Structured Cabling Technician: Joaquim Izquierdo D.O. ASSESSMENT: * Sepsis. * Diabetes mellitus. * NSTEMI. * Thrombocytopenia. * Hypertension. * Debility. * Gram positive bacteremia PLAN: * Continue antihypertensive. * continue antidiabetic. * Continue nutritional support. * Monitor electrolytes and correct as needed. * continue vancomycin as per pharmacy protocol * Continue rifampin 300mg BID * patient will need a total of 6 weeks of antibiotics * Case management to [facility] * Follow up with blood cultures * Continue with Gentamycin IV, * continue with CV recommendations This case has been discussed with my supervising physician Dr. Montoya. the case has been discussed and agreed upon. ALBA CHAVARRIA [facility] [place] Nov 29, 2024 17:41
[2024-11-30] VITALS (7 sets, daily range): BP systolic 96–147; BP diastolic 47–71; PULSE 80–90; RESP 16–18; TEMP 97.5–100.9; O2SAT 96–99
[2024-11-30 05:48] LABS: IMMATURE GRANULOCYTE ABSOLUTE 0.04 K/uL (0-1); NUCLEATED RED BLOOD CELLS 0.0 % (0.0-0.19); PLATELET COUNT (AUTO) 138 K/uL (130-400); RED BLOOD CELL COUNT(AUTO) 2.35 MIL/uL (4.50-6.20); RED CELL DISTRIBUTION WIDTH 14.8 % (11.0-15.5); WHITE BLOOD COUNT (AUTO) 7.4 K/uL (4.8-10.8)
[2024-11-30 06:12] LABS: ASPARTATE AMINOTRANSFERASE 18.0 U/L (10-37); CREATININE 1.4 mg/dL (0.5-1.3); GLOMERULAR FILTR. RATE CALC 53.0 mL/min (>90); GLUCOSE,RANDOM 151.0 mg/dL (70-105); SODIUM SERUM 137.0 mmol/L (136-145); TOTAL PROTEIN, SERUM 5.3 g/dL (6.0-8.3); UREA NITROGEN, BLOOD 12.0 mg/dL (7-18)
--- NOTE | 2024-11-30 08:53 | PN ---
[facility] CARDIOLOGY PROGRESS NOTE Date Patient Seen: Nov 30, 2024 Time of Visit: 08:47 Interval History: This is a 74-year-old Latin-[place] male with a past medical history of severe aortic stenosis status post minimally invasive aortic valve replacement with an extra-large Cristhian Jc bioprosthetic aortic valve 09/04/2016, essentially normal coronary arteries by prior cardiac catheterization 08/19/2016 with nonobstructive coronary artery disease by follow-up cardiac catheterization 11/28/2024 (30% and 30% tandem mid LAD stenoses, 50% diagonal one at 50% diagonal two stenoses, 30% proximal and mid left circumflex stenoses, and 30% proximal and mid RCA stenoses), hyperlipidemia, hypertension, type 2 diabetes mellitus was admitted for management of recurrent sepsis. He presented with generalized body weakness, fever and diarrhea onset 48 hours prior to admission. He had been managed at [facility] recently for bacteremia and was discharge 10/30/2024, his reporting that he had recurrent fevers beginning one week after discharge from [facility] (he was admitted here 10/05/2024 through 10/15/2024 with bacteremia and a MYKE on 10/09/2024 demonstrated no evidence of valvular vegetation). On admission he did have a temperature of 101. The patient did have evidence of elevated troponin with admission troponin of 350, rising to 3303 on 11/18/2024 and trending down. He underwent a 2D echocardiogram on 11/18/2024 demonstrated normal LVEF of 55- 60%, mild concentric LVH and stage I diastolic dysfunction. The bioprosthetic aortic valve was noted with peak aortic valve gradient of 41 mmHg, mean aortic valve gradient of 23 mmHg and dimensionless index of 1.42 and a small perivalvular leak. Blood cultures from 11/17/2024 and 11/19/2024 have grown Staphylococcus epidermidis (same organism from blood cultures done on prior admission 10/05/2024). Blood cultures from 11/21/2024 and 11/22/2024 have demonstrated no growth. Previously a transesophageal echo 10/09/2024 demonstrated no evidence of valvular vegetation. A chest CT angiogram 11/22/2024 demonstrated no definitive evidence of rodrigo-aortic valvular abscess. He underwent a repeat MYKE on 11/20/2024 demonstrating a 0.4 x 0.8 cm linear mobile vegetation on the anterior mitral valve leaflet, consistent with SBE. Prosthetic aortic valve demonstrated thickened leaflets, but no evidence of perforation, deterioration, or mobile/oscillating vegetation. There was trace central-valvular aortic insufficiency only. 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 The patient also underwent a gallium scan on 11/24/2024 demonstrating normal scan with no increased uptake in the periaortic region. He had temperature of 99.9 max last night. This morning, he is comfortable and offers no complaints of orthopnea, PND, chest pain or other symptoms. Physical Examination: GENERAL: No acute distress. HEAD: Normal with no signs of head trauma. EYES: PERRLA, EOMI, conjunctiva and sclera normal. NECK: Supple without JVD. There is no tenderness, lymphadenopathy, or masses. No thyromegaly. Normal carotid upstrokes without bruits. LUNGS: Clear breath sounds bilaterally. No wheezes, or rhonchi. HEART: Normal rate and rhythm. Normal S1 and S2 there is a 2/6 mid peaking systolic ejection murmur louder at the left midsternal border. There is no diastolic murmur audible. There is no MR murmur audible. VASC: Peripheral pulses +2 bilaterally. Right groin cath site is soft and free of hematoma EXT: No clubbing, cyanosis or edema. NEURO: Awake, alert, and oriented x3. No focal neurological deficits noted. Laboratory: Hematology Labs: Test 11/30/24 05:33 11/29/24 05:05 Range/Units White Blood Count 7.4 4.8-10.8 K/uL Red Blood Count 2.35 L 4.50-6.20 MIL/uL Hemoglobin 7.2 L 14.0-18.0 g/dL Hematocrit 21.9 L 42-54 % Mean Corpuscular Volume 93.2 79-99 fL Mean Corpuscular Hemoglobin 30.6 27.0-33.0 pg Mean Corpuscular Hemoglobin Concent 32.9 32.0-36.0 g/dL Red Cell Distribution Width 14.8 11.0-15.5 % Platelet Count 138 130-400 K/uL Mean Platelet Volume 10.2 7.5-10.5 fL Immature Granulocyte % (Auto) 0.5 0-1 % Neutrophils (%) (Auto) 74.5 40.0-77.0 % Lymphocytes (%) (Auto) 13.9 L 21.0-51.0 % Monocytes (%) (Auto) 8.6 3.0-13.0 % Eosinophils (%) (Auto) 2.2 0.0-8.0 % Basophils (%) (Auto) 0.3 0.0-5.0 % Neutrophils # (Auto) 5.5 1.8-7.7 K/uL Lymphocytes # (Auto) 1.0 1.0-4.8 K/uL Monocytes # (Auto) 0.6 0.1-1.0 K/uL Eosinophils # (Auto) 0.16 0.00-0.70 K/uL Basophils # (Auto) 0.02 0.00-0.20 K/uL Absolute Immature Granulocyte (auto 0.04 0-1 K/uL Nucleated Red Blood Cells 0.0 0.0-0.19 % White Cell Morphology Comment See comments Chemistry Labs: Test 11/30/24 05:52 11/30/24 05:33 11/29/24 05:05 Range/Units Whole Blood Glucose 139 H 70-110 MG/DL Sodium Level 137 136-145 mmol/L Potassium Level 3.9 3.5-5.1 mmol/L Chloride Level 103 101-111 mmol/L Carbon Dioxide Level 28 21-32 mmol/L Blood Urea Nitrogen 12 7-18 mg/dL Creatinine 1.4 H 0.5-1.3 mg/dL Glomerular Filtration Rate Calc 53 >90 mL/min Random Glucose 151 H 70-105 mg/dL Total Calcium 7.9 L 8.5-10.1 mg/dL Magnesium Level 1.70 L 1.80-2.40 mg/dL Total Bilirubin 0.3 0.2-1.0 mg/dL Aspartate Amino Transf (AST/SGOT) 18 10-37 U/L Alanine Aminotransferase (ALT/SGPT) 11 L 12-78 U/L Alkaline Phosphatase 55 50-136 U/L Total Protein 5.3 L 6.0-8.3 g/dL Albumin 1.8 L 3.5-5.0 g/dL Iron Level 25 #L 65-175 mcg/dL Total Iron Binding Capacity 141 L 250-450 mcg/dL Percent Iron Saturation 17.7 L 30-44 % Vitamin B12 Level 707 193-986 pg/mL Folic Acid (LAB) 10.90 2-20 ng/mL Diagnostics / Radiology: 2D echocardiogram 11/18/2024: Conclusion LVEF is 55-60% with normal wall motion (volume measurements made by compliance technician are inaccurate). Stage I diastolic dysfunction with elevated mean LV filling pressure. The left atrium size is mildly dilated. Bioprosthetic aortic valve is present, probably a TAVR. Peak/Mean gradient 41/23 mmHg. Small perivalvular leak. Mitral regurgitation is mild. MYKE 11/20/2024: There was a 0.4 x 0.8 cm linear mobile vegetation on the anterior mitral valve leaflet, consistent with SBE. Prosthetic aortic valve demonstrates thickened leaflets, but no evidence of perforation, deterioration, or mobile or oscillating vegetation. There was trace central-valvular aortic insufficiency only. Repeat review of the MYKE suggests a perivalvular aortic abscess, extending down the aorta mitral curtain to the anterior mitral leaflet with a mitral leaflet vegetation. 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 Repeat blood cultures from 11/21/2024 and 11/22/2024 have demonstrated no growth -CT of thoracic spine and lumbar spine demonstrated no apparent infectious process. There is fixation hardware in the lumbar spine -Dr. Alexis has elected to proceed with a repeat course of antibiotics with operation only for failure of antibiotic therapy -repeat blood cultures today Type [address] segment elevation NH, in the setting of sepsis, with troponin rising to 3303: Nonobstructive coronary artery disease (30% and 30% tandem mid LAD stenoses, 50% diagonal one at 50% diagonal two stenoses, 30% proximal and mid left circumflex stenoses, and 30% proximal and mid RCA stenoses) by cardiac catheterization 11/28/2024: Normal LVEF with an LVEF of 55-60% and normal wall motion on 2D echocardiogram 11/18/2024: -continue antiplatelet therapy and statin therapy Severe aortic stenosis status post minimally invasive aortic valve replacement with an extra-large Cristhian Jc bioprosthetic aortic valve 09/04/2016: -normal functioning bioprosthetic aortic valve by 2D echocardiogram 11/18/2024, and by transesophageal echo 11/20/2024, with evidence of perivalvular aortic abscess -Dr. Alexis has elected to proceed with a repeat course of antibiotics with operation only for failure of antibiotic therapy -repeat blood cultures today Normocytic normochromic anemia, iron-deficiency: -begin reducing frequency of phlebotomy -begin folate and thiamine supplementation and multiple vitamin -B12 and folate levels were within normal limit and has been initiated on iron supplementation Comorbidities: C-spine myelomalacia Dementia MYKE 10/09/2024 demonstrated an LVEF of 45-50% and no valvular vegetations Hypertension Hyperlipidemia Type 2 diabetes mellitus JACOB FOLEY MD Nov 30, 2024 08:53
[2024-11-30] MEDS: GENTAMICIN SULFATE IV SCH (09:00)
[2024-11-30] MEDS: [UNRECOGNIZED DRUG - OTHER] IV SCH (09:00)
[2024-11-30 11:23] LABS: INR 1.02 (0.85-1.15)
--- NOTE | 2024-11-30 11:53 | NUR ---
[facility] P2P FOR LTAC PER ALEX VARGAS NOTIFIED Addendum: 11/30/24 at 1154 by JULIANN DELGADO RN CM Amended: Links added.
--- NOTE | 2024-11-30 12:39 | PN ---
[facility] PROGRESS NOTE Date of Service: Nov 30, 2024 Time of Service: 12:[address] Cochran SUBJECTIVE: [ ] Mr. Bennett is a 74-year-old male that was seen and examined today on 11/17/2024. Patient is a poor historian and personal health due to past medical history of dementia. Patient's , Erma Thomas is at bedside. Patient says that patient came to the emergency department with a chief complaint of weakness. Onset was today at 5:00 p.m.. Location is to bilateral lower extremities. Duration is constant. Character is described as, "he was just sitting in the sofa all day and sleeping more than usual. There was no alleviating factors. There was no aggravating factors. Spouse reports associated fever and chills. 11/18/24 patient was seen earlier patient is lying in bed with family at bedside. Patient was discharged from LTAC for long-term IV antibiotics discharged home with oral antibiotics we will have ID on board. Patient denied chest pain or shortness for breath. 11/19/24 patient was seen patient denied chest pain shortness a breath. He complaints being constipated we will provide as needed lactulose. Patient waiting for CT lumbar spine examined to be done most likely on Wednesday. We will have Physical therapy work with patient as well. All questions and answers addressed appropriately. 11/20/2024 patient was seen earlier patient is lying in bed patient went for a MYKE this morning. We will follow-up results continues with triple antibiotics tolerating well cultures in process. Continues to work with physical therapy primary nurse reports no events overnight 11/21/2024 patient was seen earlier patient is lying in bed encourage out of bed to chair as tolerated. Continue with broad-spectrum antibiotics vancomycin Zosyn IV. 11/22/24 patient is seen and examined patient is lying in bed. Case management discharge planning LTAC patient is pending CT angio for abscess on valve. We will continue to monitor patient closely. 11/23/24 PATIENT IS SEEN AND EXAMINED PATIENT IS FULLY AWAKE ALERT ORIENTED X3.chest CT angiogram demonstrated no definitive evidence of rodrigo-aortic valvular abscess, DR. 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 11/24/24 patient was working with physical therapy ambulate with walker with assist. Patient will remain sitting in recliner as tolerated. Waiting for CV recommendations. Patient denied chest pain or shortness for breath patient reports having difficulty sleeping yesterday 11/25/24 late entry: The patient is waiting to get in shower, reports no new complaints. continue with Series of CT scans: given to perivalvular aortic abscess, continue with Broad spectrum antibiotics will follow product support consultant recommendations. 11/26/24 patient is seen patient reports no chest pain or shortness for breath patient went for his last CT imaging we will follow-up product support consultant's recommendations. Primary nurse reports no events overnight 11/27/24 patient was seen patient was fully awake alert oriented x3 spouse at bedside. Denied chest pain shortness a breath. Continue with IV antibiotics WBCs improving down to8.5 Patient is having a white blood cell scan results are still pending. Tool Grinder's Dr. King we will proceed with left heart catheterization in the morning. 11/28/24 patient is going for a left heart catheterization this morning per product support consultant's WBCs scan was positive we will wait for final recommendations from CV and product support consultant's; with possible a redo AVR versus long-term antibiotics the patient return back from laboratory sampler without complications 11/29/24 patient is seen earlier patient is fully awake alert oriented x3 denied chest pain. at bedside we will wait for CV and product support consultant's recommendation if patient will need surgery. Continues with broad-spectrum antibiotics low hgb: will start IV venofer. 11/30/24 patient was seen by nurse practitioner and physician during rounding in room 419. As per cardiovascular surgeon patient will need to complete six weeks of antibiotics and then come back to the hospital for possible replacement of bioprosthesis. . Blood grew Streptococcus epidermidis. Case management was consulted and patient is pending [facility] placement once insurance approved. We will continue to monitor patient in the meantime. A.m. labs. REVIEW OF SYSTEMS CONSTITUTIONAL: Denies fevers, chills, or night sweats. No unintentional weight loss reported. NEUROLOGICAL: Denies headache, amaurosis fugax, motor weakness, sensory deficit, vertigo/spinning sensation, gait abnormalities, or tremors. ENT: No hearing loss, otalgia, otorrhea, rhinitis, rhinorrhea, hoarseness, or sore throat. CARDIOVASCULAR: Denies any exertional angina, dyspnea on exertion, orthopnea, paroxysmal nocturnal dyspnea, palpitations, life-threatening arrhythmias, claudication. PULMONARY: Denies any shortness of breath, cough, phlegm/sputum, hemoptysis, pleuritic chest pain. SLEEP: Denies morning headaches, daytime somnolence or napping. Denies difficulty falling asleep, staying asleep, waking from sleep. Denies knowledge of snoring. GASTROINTESTINAL: Denies any type of dysphagia to either liquids or solids. Denies nausea, vomiting, pyrosis, early satiety, abdominal pain, diarrhea, constipation, or changes in stool consistency or caliber. Denies coffee-ground emesis, hematemesis, hematochezia, or melanotic stools. GENITOURINARY: Denies frequency, urgency, nocturia, hematuria or incontinence (Storage/Irritative symptoms.) Low urinary stream, straining to void, urinary intermittency or hesitancy, splitting of the voiding stream, terminal dribbling. ENDOCRINOLOGIC: Denies polyuria, polydipsia, polyphagia or heat/cold intolerances. HEMATOLOGIC: Denies thrombophilia/previous clots, or coagulopathy/bleeding disorders. ONCOLOGIC: Denies personal history of malignancy. DERMATOLOGIC: Denies rashes or pruritus. PSYCHIATRIC: Denies any suicidal or homicidal ideation. Denies hallucinations. PHYSICAL EXAM GENERAL APPEARANCE: The patient is awake, alert, and oriented, in no acute cardiopulmonary distress. NEUROLOGICAL: Cranial nerves II-XII grossly intact. Motor is 5/5 in bilateral upper and lower extremities proximal to distal. No sensory deficits. HEENT: Face is symmetric. Pupils are equal and reactive. Extraocular movements are intact. NECK: Supple. No JVD. No thyromegaly. No submental, submandibular, pre- /postauricular, occipital or supraclavicular lymphadenopathy. CHEST: Normal chest expansion. No Telemetry. LUNGS: Absence of any rales, rhonchi or any wheezing. CARDIOVASCULAR: Regular. S1 and S2 normal. No appreciable rubs, murmurs or gallops. ABDOMEN: Soft, nontender, and nondistended. There is no rebound, voluntary guarding, or rigidity. : Deferred. No Emmanuel. EXTREMITIES: Non-edematous and not cyanotic. No clubbing. Good capillary refill. SKIN: No skin breakdown. Vital Signs (last 8hr) Date Time Temp Pulse Resp B/P (MAP) Pulse Ox O2 Delivery O2 Flow Rate FiO2 11/30/24 12:00 99.0 90 17 96/47 98 Room Air 11/30/24 08:00 96 Room Air* 0 21 11/30/24 08:00 98.4 85 16 128/62 96 Room Air 11/30/24 04:37 98.1 86 18 136/66 93 LABS: Laboratory: Test 11/30/24 11:59 11/30/24 10:35 11/30/24 05:33 11/29/24 20:15 Range/Units Whole Blood Glucose 181 H 70-110 MG/DL Prothrombin Time 10.8 9.6-11.6 SEC Prothromb Time International Ratio 1.02 0.85-1.15 White Blood Count 7.4 4.8-10.8 K/uL Red Blood Count 2.35 L 4.50-6.20 MIL/uL Hemoglobin 7.2 L 14.0-18.0 g/dL Hematocrit 21.9 L 42-54 % Mean Corpuscular Volume 93.2 79-99 fL Mean Corpuscular Hemoglobin 30.6 27.0-33.0 pg Mean Corpuscular Hemoglobin Concent 32.9 32.0-36.0 g/dL Red Cell Distribution Width 14.8 11.0-15.5 % Platelet Count 138 130-400 K/uL Mean Platelet Volume 10.2 7.5-10.5 fL Immature Granulocyte % (Auto) 0.5 0-1 % Neutrophils (%) (Auto) 74.5 40.0-77.0 % Lymphocytes (%) (Auto) 13.9 L 21.0-51.0 % Monocytes (%) (Auto) 8.6 3.0-13.0 % Eosinophils (%) (Auto) 2.2 0.0-8.0 % Basophils (%) (Auto) 0.3 0.0-5.0 % Neutrophils # (Auto) 5.5 1.8-7.7 K/uL Lymphocytes # (Auto) 1.0 1.0-4.8 K/uL Monocytes # (Auto) 0.6 0.1-1.0 K/uL Eosinophils # (Auto) 0.16 0.00-0.70 K/uL Basophils # (Auto) 0.02 0.00-0.20 K/uL Absolute Immature Granulocyte (auto 0.04 0-1 K/uL Nucleated Red Blood Cells 0.0 0.0-0.19 % Sodium Level 137 136-145 mmol/L Potassium Level 3.9 3.5-5.1 mmol/L Chloride Level 103 101-111 mmol/L Carbon Dioxide Level 28 21-32 mmol/L Blood Urea Nitrogen 12 7-18 mg/dL Creatinine 1.4 H 0.5-1.3 mg/dL Glomerular Filtration Rate Calc 53 >90 mL/min Random Glucose 151 H 70-105 mg/dL Total Calcium 7.9 L 8.5-10.1 mg/dL Magnesium Level 1.70 L 1.80-2.40 mg/dL Total Bilirubin 0.3 0.2-1.0 mg/dL Aspartate Amino Transf (AST/SGOT) 18 10-37 U/L Alanine Aminotransferase (ALT/SGPT) 11 L 12-78 U/L Alkaline Phosphatase 55 50-136 U/L Total Protein 5.3 L 6.0-8.3 g/dL Albumin 1.8 L 3.5-5.0 g/dL Gentamicin Level Trough 1.4 # 0.0-2.0 mcg/mL Test 11/29/24 11:04 11/29/24 05:05 Range/Units Gentamicin Level Peak 2.5 #L 4.0-8.0 mcg/mL White Cell Morphology Comment See comments Iron Level 25 #L 65-175 mcg/dL Total Iron Binding Capacity 141 L 250-450 mcg/dL Percent Iron Saturation 17.7 L 30-44 % Vitamin B12 Level 707 193-986 pg/mL Folic Acid (LAB) 10.90 2-20 ng/mL Vancomycin Level Trough 17.0 # 10.0-20.0 UG/ML Current Medications Medications (Trade) Dose Ordered Sig/Ann Marie Route PRN Reason Start Time Stop Time Status Last Admin Dose Admin Acetaminophen (TYLenol 325MG TAB) 650 mg Q6H PRN PO TEMPERATURE GREATER THAN 101.5 11/17/24 22:00 12/17/24 21:59 11/26/24 08:21 650 MG Aspirin (Aspirin 81mg Ec Tab) 81 mg DAILY PO 11/18/24 09:00 11/18/24 14:00 DC 11/18/24 09:48 81 MG Aspirin (Aspirin 81mg Ec Tab) 81 mg DAILY PO 11/19/24 09:00 12/19/24 08:59 11/30/24 09:57 81 MG Atorvastatin Calcium (LIPItor 40MG) 40 mg HS PO 11/18/24 21:00 12/18/24 20:59 11/29/24 21:16 40 MG Clotrimazole (Lotrisone Cream) 1 APPL TO FACE BID TP 11/26/24 21:00 12/26/24 20:59 11/30/24 09:58 1 GM Donepezil HCl (ARIcept 5MG TAB) 5 mg HS PO 11/18/24 21:00 12/18/24 20:59 11/29/24 21:16 5 MG Doxycycline Hyclate (Doxycycline Hyclate) 100 mg Q12H PO 11/18/24 12:00 11/20/24 13:14 DC 11/19/24 22:59 100 MG Enoxaparin Sodium (Lovenox) 40 mg DAILY SQ 11/18/24 09:00 11/18/24 01:27 DC Famotidine (Pepcid 20mg Tab) 20 mg DAILY PO 11/18/24 09:00 12/18/24 08:59 11/30/24 09:58 20 MG Gabapentin (NEURontin 300 MG CAP) 300 mg BID PO 11/18/24 21:00 12/18/24 20:59 11/30/24 09:58 300 MG Gentamicin Sulfate 50 mg/ Sodium Chloride 100 ml @ 200 mls/hr Q12H9 IV 11/30/24 09:00 12/10/24 08:59 11/30/24 09:00 200 MLS/HR Gentamicin Sulfate 60 mg/ Sodium Chloride 100 ml @ 200 mls/hr Q12H9 IV 11/26/24 09:00 11/30/24 06:21 DC 11/29/24 21:07 200 MLS/HR Gentamicin Sulfate 60 mg/ Sodium Chloride 100 ml @ 200 mls/hr Q8H IV 11/24/24 14:00 11/25/24 17:17 DC 11/25/24 06:00 200 MLS/HR Gentamicin Sulfate (GENTAmicin PROTOCOL) 1 each AD IV 11/24/24 13:30 12/08/24 13:29 Home Med (Home Medication) BID OP 11/18/24 21:00 12/18/24 20:59 11/29/24 21:22 1 EACH Hydralazine HCl (APRESOLine 20MG INJ) 10 mg Q6H PRN IV For:SBP above 160;DBP above 90 11/17/24 22:00 12/17/24 21:59 Insulin Human Regular (humuLIN R 100 UNIT/ML 3ML) INSULIN SLIDING SCAL... ACHS SQ 11/18/24 07:30 12/18/24 07:29 11/29/24 17:13 4 UNIT Iron Sucrose (VenoFER) 200 mg DAILY IV 11/29/24 12:00 12/01/24 12:00 11/30/24 09:57 200 MG Magnesium Sulfate 50 ml @ 0 mls/hr PROTOCOL PRN IV RX MONITORING LEVELS & DOSING 11/17/24 23:00 11/18/24 01:30 DC 11/18/24 00:22 25 MLS/HR Magnesium Sulfate 50 ml @ 0 mls/hr PROTOCOL PRN IV h 11/18/24 01:30 12/18/24 01:29 11/30/24 10:44 25 MLS/HR Morphine Sulfate (morPHINE 2MG SYG) 2 mg Q4H PRN IVP SEVERE PAIN (7-10) 11/17/24 22:00 11/23/24 00:59 DC Nitroglycerin (Nitrostat) 0.4 mg PROTOCOL PRN SL CHEST PAIN 11/17/24 22:00 12/17/24 21:59 Ondansetron HCl (zoFRAN 4MG INJ) 4 mg Q6H PRN IV NAUSEA/VOMITING 11/17/24 22:00 12/17/24 21:59 11/18/24 20:20 4 MG Pharmacy Profile Note (Lace Assessment) 1 each AD MISC 11/24/24 12:30 11/24/24 13:00 DC Pharmacy Profile Note (Lace Assessment) 1 each AD MISC 11/25/24 16:00 11/26/24 07:15 DC Pharmacy Profile Note (Pharmacy Communication) 1 each ONCE MISC 11/20/24 12:30 11/20/24 12:16 DC Piperacillin Sod/ Tazobactam Sod (Zosyn 3.375gm+NS 50ml) 3.375 gm Q8H IV 11/18/24 05:00 11/22/24 10:54 DC 11/22/24 05:35 3.375 GM Potassium Chloride 100 ml @ 100 mls/hr AD PRN IV POTASSIUM PROTOCOL 11/18/24 01:30 12/18/24 01:29 Potassium Chloride (K-Dur/Klor-Con 20meq) 20 meq AD PRN PO POTASSIUM PROTOCOL 11/18/24 01:30 12/18/24 01:29 11/28/24 17:18 20 MEQ Potassium Chloride (KCl 10% Elixir 20meq/15ml) 20 meq AD PRN PO POTASSIUM PROTOCOL 11/18/24 01:30 12/18/24 01:29 Rifampin (riFADin 300 MG CAP) 300 mg BID PO 11/20/24 21:00 11/30/24 20:59 11/30/24 09:57 300 MG Sodium Chloride 1,000 ml @ 100 mls/hr Q10H IV 11/28/24 09:30 11/28/24 19:29 DC 11/28/24 10:15 100 MLS/HR Vancomycin HCl 100 ml @ 100 mls/hr BID@0600,1800 IV 11/26/24 06:00 11/26/24 07:19 DC 11/26/24 05:18 100 MLS/HR Vancomycin HCl 100 ml @ 100 mls/hr ONCE IV 11/25/24 22:30 11/25/24 23:59 DC 11/25/24 22:32 100 MLS/HR Vancomycin HCl 250 ml @ 83.333 mls/ hr Q24H IV 11/20/24 22:00 11/23/24 21:49 DC 11/22/24 21:44 83.333 MLS/HR Vancomycin HCl 250 ml @ 83.333 mls/ hr Q24H IV 11/23/24 22:00 11/24/24 12:24 DC 11/23/24 22:14 83.333 MLS/HR Vancomycin HCl 250 ml @ 125 mls/hr ONCE IV 11/25/24 16:30 11/25/24 18:30 DC 11/25/24 16:39 125 MLS/HR Vancomycin HCl 250 ml @ 125 mls/hr Q12H IV 11/26/24 18:00 11/28/24 06:20 DC 11/27/24 17:09 125 MLS/HR Vancomycin HCl 250 ml @ 125 mls/hr Q24H IV 11/29/24 06:00 12/09/24 05:59 11/30/24 06:36 125 MLS/HR Vancomycin HCl 250 ml @ 125 mls/hr Q24H IV 11/18/24 22:00 11/20/24 21:14 DC 11/19/24 21:20 125 MLS/HR Vancomycin HCl (Vancomycin Protocol) 1 each AD IV 11/17/24 21:30 11/20/24 13:14 DC Vitamin B Complex/ Vit C/Vit E/Zinc (Stresstab/Zinc) 1 tab DAILY PO 11/29/24 09:00 12/29/24 08:59 11/30/24 09:57 1 TAB DIAGNOSTICS / RADIOLOGY: [ ] ASSESSMENT: 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 will need a total of 6 weeks of antibiotics l a.m. labs case reviewer: Pending [facility] once insurance approved Continue PT services , continue pain management. [ ] Admit: Medical-surgical floor condition: Guarded Status: Full code IVF: hannah Consultants infectious disease, product support consultant's CV Antibiotics: Vancomycin IV, rifampin 300mg BID, Gentamicin Q 12 hrs. Microbiology Case management for LTAC accepted waiting for product support consultant and CV further workup Labs cbc, cmp, mag+ Replace electrolytes as needed as per protocol to keep potassium above 4.0 magnesium 2.0. PT services out of bed to chair as tolerated Pain management: Morphine as needed Supportive measures: DVT ppx, GI ppx all questions answered Supervising MD: This document was generated in part using voice recognition software, occasional wrong word or sound alike substitutions may have occurred due to the inherent limitations of voice recognition software. Read the chart carefully and recognize using context, where the substitutions have occurred. Although every effort was made to edit the content, continuous drier helper and typing errors may occur ATTESTATION BY PHYSICIAN I have seen and examined the patient. I reviewed the documentation, medical decision making, and treatment plan as noted by the mid-level provider above. I agree with the findings and plan of care. PHONG COCHRAN MD, KATARZYNA B [employer] Nov 30, 2024 12:39
--- NOTE | 2024-11-30 15:14 | HMCIMG ---
CHEST 1VW REASON: PICC LINE PLACEMENT COMPARISON: Prior study from 11/28/2024 is available. FINDINGS: Single view of the chest was obtained. Lungs are clear. Heart size is normal. There is uncoiling atherosclerotic change of thoracic aorta. There is no pulmonary vascular congestion. Mediastinum and bony thorax appear unremarkable. There is a right-sided PIC catheter with tip in superior vena cava. IMPRESSION: 1. Normal single view chest x-ray.
--- NOTE | 2024-11-30 15:29 | PN ---
INFECTIOUS DISEASE PROGRESS NOTE Date of Service: Nov 30, 2024 SUBJECTIVE: This 74 year old male patient is being seen today at bedside. No fever or chills. He denies shortness of breath or chest pain. Patient remains on gentamicin, vancomycin and Rifampin. [facility] ad terminal makeup operator antibiotic treatment. at bedside. No concerns or issues are reported at this time. PHYSICAL EXAM EYES: Anicteric. Pupils equal and reactive. HENT: No oral thrush seen, moist Oral mucosa, rash to certain area of face near mouth NECK: Supple, no JVD or thyromegaly. LUNGS: Good air entry. No rales, no rhonchi. CARDIOVASCULAR: S1, S2 regular. No murmur heard. ABDOMEN: Soft, non tender, bowel sounds present, no organomegaly CENTRAL NERVOUS SYSTEM: Awake, alert, oriented x 3. No focal deficits. SKIN: No rashes, no swelling. LYMPHATICS: No peripheral lymphadenopathy MUSCULOSKELETAL: No joint swelling, erythema or tenderness. EXTREMITIES: no hematoma noted to right groin, dressing in place BACK: No deformity, no pressure ulcer. GENITOURINARY: No dysuria or hematuria Vital Sign (Last 12 Hours) 11/30/24 11/30/24 11/30/24 11/30/24 04:37 08:00 08:00 12:00 Temp 98.1 98.4 99.0 Pulse 86 85 90 Resp 18 16 17 B/P (MAP) 136/66 128/62 96/47 Pulse Ox 93 96 96 98 O2 Delivery Room Air Room Air* Room Air O2 Flow Rate 0 FiO2 21 Intake & Output (last 24hrs) 11/29/24 11/29/24 11/30/24 15:00 23:00 07:00 Intake Total 600 ml 400 ml Balance 600 ml 400 ml LABS: Laboratory: Test 11/30/24 11:59 11/30/24 10:35 11/30/24 05:33 11/29/24 20:15 Range/Units Whole Blood Glucose 181 H 70-110 MG/DL Prothrombin Time 10.8 9.6-11.6 SEC Prothromb Time International Ratio 1.02 0.85-1.15 White Blood Count 7.4 4.8-10.8 K/uL Red Blood Count 2.35 L 4.50-6.20 MIL/uL Hemoglobin 7.2 L 14.0-18.0 g/dL Hematocrit 21.9 L 42-54 % Mean Corpuscular Volume 93.2 79-99 fL Mean Corpuscular Hemoglobin 30.6 27.0-33.0 pg Mean Corpuscular Hemoglobin Concent 32.9 32.0-36.0 g/dL Red Cell Distribution Width 14.8 11.0-15.5 % Platelet Count 138 130-400 K/uL Mean Platelet Volume 10.2 7.5-10.5 fL Immature Granulocyte % (Auto) 0.5 0-1 % Neutrophils (%) (Auto) 74.5 40.0-77.0 % Lymphocytes (%) (Auto) 13.9 L 21.0-51.0 % Monocytes (%) (Auto) 8.6 3.0-13.0 % Eosinophils (%) (Auto) 2.2 0.0-8.0 % Basophils (%) (Auto) 0.3 0.0-5.0 % Neutrophils # (Auto) 5.5 1.8-7.7 K/uL Lymphocytes # (Auto) 1.0 1.0-4.8 K/uL Monocytes # (Auto) 0.6 0.1-1.0 K/uL Eosinophils # (Auto) 0.16 0.00-0.70 K/uL Basophils # (Auto) 0.02 0.00-0.20 K/uL Absolute Immature Granulocyte (auto 0.04 0-1 K/uL Nucleated Red Blood Cells 0.0 0.0-0.19 % Sodium Level 137 136-145 mmol/L Potassium Level 3.9 3.5-5.1 mmol/L Chloride Level 103 101-111 mmol/L Carbon Dioxide Level 28 21-32 mmol/L Blood Urea Nitrogen 12 7-18 mg/dL Creatinine 1.4 H 0.5-1.3 mg/dL Glomerular Filtration Rate Calc 53 >90 mL/min Random Glucose 151 H 70-105 mg/dL Total Calcium 7.9 L 8.5-10.1 mg/dL Magnesium Level 1.70 L 1.80-2.40 mg/dL Total Bilirubin 0.3 0.2-1.0 mg/dL Aspartate Amino Transf (AST/SGOT) 18 10-37 U/L Alanine Aminotransferase (ALT/SGPT) 11 L 12-78 U/L Alkaline Phosphatase 55 50-136 U/L Total Protein 5.3 L 6.0-8.3 g/dL Albumin 1.8 L 3.5-5.0 g/dL Gentamicin Level Trough 1.4 # 0.0-2.0 mcg/mL Test 11/29/24 11:04 11/29/24 05:05 Range/Units Gentamicin Level Peak 2.5 #L 4.0-8.0 mcg/mL White Cell Morphology Comment See comments Iron Level 25 #L 65-175 mcg/dL Total Iron Binding Capacity 141 L 250-450 mcg/dL Percent Iron Saturation 17.7 L 30-44 % Vitamin B12 Level 707 193-986 pg/mL Folic Acid (LAB) 10.90 2-20 ng/mL Vancomycin Level Trough 17.0 # 10.0-20.0 UG/ML DIAGNOSTICS / RADIOLOGY: SPEC: [id number] MICHELLE: 11/17/24 STATUS: COMP REQ: [id number] RECD: 11/18/24-[address] [facility] [address]: SIMA MATTHEWS SOURCE: BLOOD ENTR: 11/18/24-140 [facility] DR: SAM FIGUEROAC SPDESC: BLOOD NONE ORDERED: AERO ID & SENS Procedure Result Jose Alejandro Date-Time AEROBIC ID & SENSITIVITIES Final 11/21/24-0616 [facility] COLONY DESCRIPTION: DAY 1: GRAM POSITIVE COCCI IN CLUSTERS COAGULASE NEGATIVE STAPHYLOCOCCUS AEROBIC AND ANAEROBIC BOTTLES IDENTIFICATION AND SENSITIVITY TO FOLLOW STAPHYLOCOCCUS EPIDERMIDIS ROBERTO CASTELLANO M.I.C. RX --------- ---- CLINDAMYCIN <=0.25 S ERYTHROMYCIN >4 R GENTAMICIN <=4 S VANCOMYCIN 1 S OXACILLIN AMRITA >2 R RIFAMPIN <=1 S TETRACYCLINE <=4 S TRIMETHOPRIM/SUFLAMETHOXAZOLE 2/38 S @ [facility] Test Performed at: [facility] [address], [place], [place] [employer] Attendant: Joaquim Izquierdo D.O. ASSESSMENT: * Sepsis. * Diabetes mellitus. * NSTEMI. * Thrombocytopenia. * Hypertension. * Debility. * Gram positive bacteremia PLAN: * Continue antihypertensive. * continue antidiabetic. * Continue nutritional support. * Monitor electrolytes and correct as needed. * continue vancomycin as per pharmacy protocol * Continue rifampin 300mg BID * patient will need a total of 6 weeks of antibiotics * Case management to Referral to [facility] * Follow up with blood cultures * Continue with Gentamycin IV, * continue with CV recommendations This case has been discussed with my supervising physician Dr. Montoya. the case has been discussed and agreed upon. ALBA CHAVARRIA [facility] Nov 30, 2024 15:29
[2024-12-01] VITALS (7 sets, daily range): BP systolic 95–149; BP diastolic 43–66; PULSE 79–92; RESP 17–18; TEMP 98.2–99.9; O2SAT 96–98
[2024-12-01 05:13] LABS: IMMATURE GRANULOCYTE ABSOLUTE 0.03 K/uL (0-1); NUCLEATED RED BLOOD CELLS 0.0 % (0.0-0.19); PLATELET COUNT (AUTO) 122 K/uL (130-400); RED BLOOD CELL COUNT(AUTO) 2.29 MIL/uL (4.50-6.20); RED CELL DISTRIBUTION WIDTH 14.8 % (11.0-15.5); WHITE BLOOD COUNT (AUTO) 7.1 K/uL (4.8-10.8)
[2024-12-01 05:38] LABS: ASPARTATE AMINOTRANSFERASE 16.0 U/L (10-37); CREATININE 1.3 mg/dL (0.5-1.3); GLOMERULAR FILTR. RATE CALC 58.0 mL/min (>90); GLUCOSE,RANDOM 140.0 mg/dL (70-105); SODIUM SERUM 136.0 mmol/L (136-145); TOTAL PROTEIN, SERUM 5.2 g/dL (6.0-8.3); UREA NITROGEN, BLOOD 11.0 mg/dL (7-18); VANCOMYCIN TROUGH 16.6 UG/ML (10.0-20.0)
[2024-12-01] MEDS: PoTASSium chloRIDE 20MEQ ER 20 MEQ ERTAB PO ONE ×2 (07:37→21:49)
--- NOTE | 2024-12-01 08:48 | PN ---
[facility] CARDIOLOGY PROGRESS NOTE Date Patient Seen: Dec 01, 2024 Time of Visit: 08:46 Interval History: This is a 74-year-old [place] male with a past medical history of severe aortic stenosis status post minimally invasive aortic valve replacement with an extra-large Cristhian Jc bioprosthetic aortic valve 09/04/2016, essentially normal coronary arteries by prior cardiac catheterization 08/19/2016 with nonobstructive coronary artery disease by follow-up cardiac catheterization 11/28/2024 (30% and 30% tandem mid LAD stenoses, 50% diagonal one at 50% diagonal two stenoses, 30% proximal and mid left circumflex stenoses, and 30% proximal and mid RCA stenoses), hyperlipidemia, hypertension, type 2 diabetes mellitus was admitted for management of recurrent sepsis. He presented with generalized body weakness, fever and diarrhea onset 48 hours prior to admission. He had been managed at [facility] recently for bacteremia and was discharge 10/30/2024, his reporting that he had recurrent fevers beginning one week after discharge from [facility] (he was admitted here 10/05/2024 through 10/15/2024 with bacteremia and a MYKE on 10/09/2024 demonstrated no evidence of valvular vegetation). On admission he did have a temperature of 101. The patient did have evidence of elevated troponin with admission troponin of 350, rising to 3303 on 11/18/2024 and trending down. He underwent a 2D echocardiogram on 11/18/2024 demonstrated normal LVEF of 55- 60%, mild concentric LVH and stage I diastolic dysfunction. The bioprosthetic aortic valve was noted with peak aortic valve gradient of 41 mmHg, mean aortic valve gradient of 23 mmHg and dimensionless index of 1.42 and a small perivalvular leak. Blood cultures from 11/17/2024 and 11/19/2024 have grown Staphylococcus epidermidis (same organism from blood cultures done on prior admission 10/05/2024). Blood cultures from 11/21/2024 and 11/22/2024 have demonstrated no growth. Previously a transesophageal echo 10/09/2024 demonstrated no evidence of valvular vegetation. A chest CT angiogram 11/22/2024 demonstrated no definitive evidence of rodrigo-aortic valvular abscess. He underwent a repeat MYKE on 11/20/2024 demonstrating a 0.4 x 0.8 cm linear mobile vegetation on the anterior mitral valve leaflet, consistent with SBE. Prosthetic aortic valve demonstrated thickened leaflets, but no evidence of perforation, deterioration, or mobile/oscillating vegetation. There was trace central-valvular aortic insufficiency only. 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 The patient also underwent a gallium scan on 11/24/2024 demonstrating normal scan with no increased uptake in the periaortic region. He had temperature of 100.9 max last night. This morning, he is comfortable and offers no complaints of orthopnea, PND, chest pain or other symptoms. Physical Examination: GENERAL: No acute distress. HEAD: Normal with no signs of head trauma. EYES: PERRLA, EOMI, conjunctiva and sclera normal. NECK: Supple without JVD. There is no tenderness, lymphadenopathy, or masses. No thyromegaly. Normal carotid upstrokes without bruits. LUNGS: Clear breath sounds bilaterally. No wheezes, or rhonchi. HEART: Normal rate and rhythm. Normal S1 and S2 there is a 2/6 mid peaking systolic ejection murmur louder at the left midsternal border. There is no diastolic murmur audible. There is no MR murmur audible. VASC: Peripheral pulses +2 bilaterally. Right groin cath site is soft and free of hematoma EXT: No clubbing, cyanosis or edema. NEURO: Awake, alert, and oriented x3. No focal neurological deficits noted. Laboratory: Hematology Labs: Test 12/01/24 05:00 Range/Units White Blood Count 7.1 4.8-10.8 K/uL Red Blood Count 2.29 L 4.50-6.20 MIL/uL Hemoglobin 7.1 L 14.0-18.0 g/dL Hematocrit 21.8 L 42-54 % Mean Corpuscular Volume 95.2 79-99 fL Mean Corpuscular Hemoglobin 31.0 27.0-33.0 pg Mean Corpuscular Hemoglobin Concent 32.6 32.0-36.0 g/dL Red Cell Distribution Width 14.8 11.0-15.5 % Platelet Count 122 L 130-400 K/uL Mean Platelet Volume 10.2 7.5-10.5 fL Immature Granulocyte % (Auto) 0.4 0-1 % Neutrophils (%) (Auto) 77.7 H 40.0-77.0 % Lymphocytes (%) (Auto) 10.9 L 21.0-51.0 % Monocytes (%) (Auto) 8.6 3.0-13.0 % Eosinophils (%) (Auto) 2.3 0.0-8.0 % Basophils (%) (Auto) 0.1 0.0-5.0 % Neutrophils # (Auto) 5.5 1.8-7.7 K/uL Lymphocytes # (Auto) 0.8 L 1.0-4.8 K/uL Monocytes # (Auto) 0.6 0.1-1.0 K/uL Eosinophils # (Auto) 0.16 0.00-0.70 K/uL Basophils # (Auto) 0.01 0.00-0.20 K/uL Absolute Immature Granulocyte (auto 0.03 0-1 K/uL Nucleated Red Blood Cells 0.0 0.0-0.19 % Chemistry Labs: Test 12/01/24 07:40 12/01/24 05:54 12/01/24 05:00 Range/Units Lactic Acid Level 0.8 0.8-2.5 mmol/L Whole Blood Glucose 136 H 70-110 MG/DL Sodium Level 136 136-145 mmol/L Potassium Level 3.7 3.5-5.1 mmol/L Chloride Level 102 101-111 mmol/L Carbon Dioxide Level 29 21-32 mmol/L Blood Urea Nitrogen 11 7-18 mg/dL Creatinine 1.3 0.5-1.3 mg/dL Glomerular Filtration Rate Calc 58 >90 mL/min Random Glucose 140 H 70-105 mg/dL Total Calcium 7.7 L 8.5-10.1 mg/dL Magnesium Level 1.80 1.80-2.40 mg/dL Total Bilirubin 0.2 # 0.2-1.0 mg/dL Aspartate Amino Transf (AST/SGOT) 16 10-37 U/L Alanine Aminotransferase (ALT/SGPT) 12 12-78 U/L Alkaline Phosphatase 61 50-136 U/L Total Protein 5.2 L 6.0-8.3 g/dL Albumin 1.8 L 3.5-5.0 g/dL Coagulation Labs: Test 11/30/24 10:35 Range/Units Prothrombin Time 10.8 9.6-11.6 SEC Prothromb Time International Ratio 1.02 0.85-1.15 Diagnostics / Radiology: 2D echocardiogram 11/18/2024: Conclusion LVEF is 55-60% with normal wall motion (volume measurements made by technical maintenance technician are inaccurate). Stage I diastolic dysfunction with elevated mean LV filling pressure. The left atrium size is mildly dilated. Bioprosthetic aortic valve is present, probably a TAVR. Peak/Mean gradient 41/23 mmHg. Small perivalvular leak. Mitral regurgitation is mild. MYKE 11/20/2024: There was a 0.4 x 0.8 cm linear mobile vegetation on the anterior mitral valve leaflet, consistent with SBE. Prosthetic aortic valve demonstrates thickened leaflets, but no evidence of perforation, deterioration, or mobile or oscillating vegetation. There was trace central-valvular aortic insufficiency only. Repeat review of the MYKE suggests a perivalvular aortic abscess, extending down the aorta mitral curtain to the anterior mitral leaflet with a mitral leaflet vegetation. 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 Repeat blood cultures from 11/21/2024 and 11/22/2024 have demonstrated no growth -repeat blood cultures from 11/30/2024 are pending -CT of thoracic spine and lumbar spine demonstrated no apparent infectious process. There is fixation hardware in the lumbar spine -Dr. Alexis has elected to proceed with a repeat course of antibiotics with operation only for failure of antibiotic therapy -repeat blood cultures today Type [address] segment elevation DC, in the setting of sepsis, with troponin rising to 3303: Nonobstructive coronary artery disease (30% and 30% tandem mid LAD stenoses, 50% diagonal one at 50% diagonal two stenoses, 30% proximal and mid left circumflex stenoses, and 30% proximal and mid RCA stenoses) by cardiac catheterization 11/28/2024: Normal LVEF with an LVEF of 55-60% and normal wall motion on 2D echocardiogram 11/18/2024: -continue antiplatelet therapy and statin therapy Severe aortic stenosis status post minimally invasive aortic valve replacement with an extra-large Cristhian [place]ingo bioprosthetic aortic valve 09/04/2016: -normal functioning bioprosthetic aortic valve by 2D echocardiogram 11/18/2024, and by transesophageal echo 11/20/2024, with evidence of perivalvular aortic abscess -Dr. 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
--- NOTE | 2024-12-01 12:10 | PN ---
INFECTIOUS DISEASE PROGRESS NOTE Date of Service: Dec 01, 2024 SUBJECTIVE: This 74 year old male patient is being seen today at bedside. Low grade fever noted over night. No chest pain or shortness of breath patient continues with antibiotics. Pending acceptance to [facility]. No acute events over night. PHYSICAL EXAM EYES: Anicteric. Pupils equal and reactive. HENT: No oral thrush seen, moist Oral mucosa, rash to certain area of face near mouth NECK: Supple, no JVD or thyromegaly. LUNGS: Good air entry. No rales, no rhonchi. CARDIOVASCULAR: S1, S2 regular. No murmur heard. ABDOMEN: Soft, non tender, bowel sounds present, no organomegaly CENTRAL NERVOUS SYSTEM: Awake, alert, oriented x 3. No focal deficits. SKIN: No rashes, no swelling. LYMPHATICS: No peripheral lymphadenopathy MUSCULOSKELETAL: No joint swelling, erythema or tenderness. EXTREMITIES: no hematoma noted to right groin, dressing in place BACK: No deformity, no pressure ulcer. GENITOURINARY: No dysuria or hematuria Vital Sign (Last 12 Hours) 12/01/24 12/01/24 04:00 08:00 Temp 99.9 98.2 Pulse 92 84 Resp 17 17 B/P (MAP) 95/49 118/58 Pulse Ox 95 98 O2 Delivery Room Air Intake & Output (last 24hrs) 11/30/24 11/30/24 12/01/24 15:00 23:00 07:00 Intake Total 200 ml Balance 200 ml LABS: Laboratory: Test 12/01/24 11:09 12/01/24 07:40 12/01/24 05:00 11/30/24 10:35 Range/Units Whole Blood Glucose 148 H 70-110 MG/DL Lactic Acid Level 0.8 0.8-2.5 mmol/L White Blood Count 7.1 4.8-10.8 K/uL Red Blood Count 2.29 L 4.50-6.20 MIL/uL Hemoglobin 7.1 L 14.0-18.0 g/dL Hematocrit 21.8 L 42-54 % Mean Corpuscular Volume 95.2 79-99 fL Mean Corpuscular Hemoglobin 31.0 27.0-33.0 pg Mean Corpuscular Hemoglobin Concent 32.6 32.0-36.0 g/dL Red Cell Distribution Width 14.8 11.0-15.5 % Platelet Count 122 L 130-400 K/uL Mean Platelet Volume 10.2 7.5-10.5 fL Immature Granulocyte % (Auto) 0.4 0-1 % Neutrophils (%) (Auto) 77.7 H 40.0-77.0 % Lymphocytes (%) (Auto) 10.9 L 21.0-51.0 % Monocytes (%) (Auto) 8.6 3.0-13.0 % Eosinophils (%) (Auto) 2.3 0.0-8.0 % Basophils (%) (Auto) 0.1 0.0-5.0 % Neutrophils # (Auto) 5.5 1.8-7.7 K/uL Lymphocytes # (Auto) 0.8 L 1.0-4.8 K/uL Monocytes # (Auto) 0.6 0.1-1.0 K/uL Eosinophils # (Auto) 0.16 0.00-0.70 K/uL Basophils # (Auto) 0.01 0.00-0.20 K/uL Absolute Immature Granulocyte (auto 0.03 0-1 K/uL Nucleated Red Blood Cells 0.0 0.0-0.19 % Sodium Level 136 136-145 mmol/L Potassium Level 3.7 3.5-5.1 mmol/L Chloride Level 102 101-111 mmol/L Carbon Dioxide Level 29 21-32 mmol/L Blood Urea Nitrogen 11 7-18 mg/dL Creatinine 1.3 0.5-1.3 mg/dL Glomerular Filtration Rate Calc 58 >90 mL/min Random Glucose 140 H 70-105 mg/dL Total Calcium 7.7 L 8.5-10.1 mg/dL Magnesium Level 1.80 1.80-2.40 mg/dL Total Bilirubin 0.2 # 0.2-1.0 mg/dL Aspartate Amino Transf (AST/SGOT) 16 10-37 U/L Alanine Aminotransferase (ALT/SGPT) 12 12-78 U/L Alkaline Phosphatase 61 50-136 U/L Total Protein 5.2 L 6.0-8.3 g/dL Albumin 1.8 L 3.5-5.0 g/dL Vancomycin Level Trough 16.6 10.0-20.0 UG/ML Prothrombin Time 10.8 9.6-11.6 SEC Prothromb Time International Ratio 1.02 0.85-1.15 Test 8/13/25 20:15 Range/Units Gentamicin Level Trough 1.4 # 0.0-2.0 mcg/mL DIAGNOSTICS / RADIOLOGY: SPEC: [id number] MICHELLE: 11/17/24 STATUS: COMP REQ: [id number] RECD: 11/18/24-[address]: SIMA MATTHEWS SOURCE: BLOOD ENTR: 11/18/24-140 [facility] DR: SAM FIGUEROA-C SPDESC: BLOOD NONE ORDERED: AERO ID & SENS Procedure Result Jose Alejandro Date-Time AEROBIC ID & SENSITIVITIES Final 11/21/24-0616 [facility] DESCRIPTION: DAY 1: GRAM POSITIVE COCCI IN CLUSTERS COAGULASE NEGATIVE STAPHYLOCOCCUS AEROBIC AND ANAEROBIC BOTTLES IDENTIFICATION AND SENSITIVITY TO FOLLOW STAPHYLOCOCCUS EPIDERMIDIS ROBERTO MathisIStefCStef RX --------- ---- CLINDAMYCIN <=0.25 S ERYTHROMYCIN >4 R GENTAMICIN <=4 S VANCOMYCIN 1 S OXACILLIN AMRITA >2 R RIFAMPIN <=1 S TETRACYCLINE <=4 S TRIMETHOPRIM/SUFLAMETHOXAZOLE 2/38 S @ [facility] Test Performed at: [facility] [address], [place], [place] Medical Chief Cardiopulmonary Technologist: Joaquim Izquierdo D.O. ASSESSMENT: * Sepsis. * Diabetes mellitus. * NSTEMI. * Thrombocytopenia. * Hypertension. * Debility. * Gram positive bacteremia PLAN: * Continue antihypertensive. * continue antidiabetic. * Continue nutritional support. * Monitor electrolytes and correct as needed. * continue vancomycin as per pharmacy protocol * Continue rifampin 300mg BID * patient will need a total of 6 weeks of antibiotics * Case management to Referral to [facility] * Follow up with blood cultures * Continue with Gentamycin IV, * continue with CV recommendations This case has been discussed with my supervising physician Dr. Montoya. the case has been discussed and agreed upon. ALBA CHAVARRIA [facility] Dec 01, 2024 12:10
--- NOTE | 2024-12-01 12:28 | PN ---
[facility] PROGRESS NOTE Date of Service: Dec 01, 2024 Time of Service: 12:[address] Cochran SUBJECTIVE: [ ] Mr. Bennett is a 74-year-old male that was seen and examined today on 11/17/2024. Patient is a poor historian and personal health due to past medical history of dementia. Patient's , Erma Thomas is at bedside. Patient says that patient came to the emergency department with a chief complaint of weakness. Onset was today at 5:00 p.m.. Location is to bilateral lower extremities. Duration is constant. Character is described as, "he was just sitting in the sofa all day and sleeping more than usual. There was no alleviating factors. There was no aggravating factors. Spouse reports associated fever and chills. 11/18/24 patient was seen earlier patient is lying in bed with family at bedside. Patient was discharged from LTAC for long-term IV antibiotics discharged home with oral antibiotics we will have ID on board. Patient denied chest pain or shortness for breath. 11/19/24 patient was seen patient denied chest pain shortness a breath. He complaints being constipated we will provide as needed lactulose. Patient waiting for CT lumbar spine examined to be done most likely on Wednesday. We will have Physical therapy work with patient as well. All questions and answers addressed appropriately. 11/20/2024 patient was seen earlier patient is lying in bed patient went for a MYKE this morning. We will follow-up results continues with triple antibiotics tolerating well cultures in process. Continues to work with physical therapy primary nurse reports no events overnight 11/21/2024 patient was seen earlier patient is lying in bed encourage out of bed to chair as tolerated. Continue with broad-spectrum antibiotics vancomycin Zosyn IV. 11/22/24 patient is seen and examined patient is lying in bed. Case management discharge planning LTAC patient is pending CT angio for abscess on valve. We will continue to monitor patient closely. 11/23/24 PATIENT IS SEEN AND EXAMINED PATIENT IS FULLY AWAKE ALERT ORIENTED X3.chest CT angiogram demonstrated no definitive evidence of rodrigo-aortic valvular abscess, DR. 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 11/24/24 patient was working with physical therapy ambulate with walker with assist. Patient will remain sitting in recliner as tolerated. Waiting for CV recommendations. Patient denied chest pain or shortness for breath patient reports having difficulty sleeping yesterday 11/25/24 late entry: The patient is waiting to get in shower, reports no new complaints. continue with Series of CT scans: given to perivalvular aortic abscess, continue with Broad spectrum antibiotics will follow clerk of scales recommendations. 11/26/24 patient is seen patient reports no chest pain or shortness for breath patient went for his last CT imaging we will follow-up clerk of scales's recommendations. Primary nurse reports no events overnight 11/27/24 patient was seen patient was fully awake alert oriented x3 spouse at bedside. Denied chest pain shortness a breath. Continue with IV antibiotics WBCs improving down to8.5 Patient is having a white blood cell scan results are still pending. Fire Management Technician's Dr. King we will proceed with left heart catheterization in the morning. 11/28/24 patient is going for a left heart catheterization this morning per clerk of scales's WBCs scan was positive we will wait for final recommendations from CV and clerk of scales's; with possible a redo AVR versus long-term antibiotics the patient return back from labor delivery specialist without complications 11/29/24 patient is seen earlier patient is fully awake alert oriented x3 denied chest pain. at bedside we will wait for CV and clerk of scales's recommendation if patient will need surgery. Continues with broad-spectrum antibiotics low hgb: will start IV venofer. 11/30/24 patient was seen by nurse practitioner and physician during rounding in room 419. As per cardiovascular surgeon patient will need to complete six weeks of antibiotics and then come back to the hospital for possible replacement of bioprosthesis. . Blood grew Streptococcus epidermidis. Case management was consulted and patient is pending [facility] placement once insurance approved. We will continue to monitor patient in the meantime. A.m. labs. 12/01/24 patient was seen by nurse practitioner and physician during rounding in room 419. Patient had a temp last night at 11:15 p.m. of 100.9. Lactic acid was 0.9. No more episodes of any temperature afterwards. Patient denies any shortness of breath, chest pain, nausea, vomiting. Dietary was consulted. We will continue to monitor patient in the meantime. A.m. labs. Patient is pending [facility] once insurance accepted. Medication reconciliation was performed by MACHINE BILLER today 12/01/2024 and placed on chart. REVIEW OF SYSTEMS CONSTITUTIONAL: Denies fevers, chills, or night sweats. No unintentional weight loss reported. NEUROLOGICAL: Denies headache, amaurosis fugax, motor weakness, sensory deficit, vertigo/spinning sensation, gait abnormalities, or tremors. ENT: No hearing loss, otalgia, otorrhea, rhinitis, rhinorrhea, hoarseness, or sore throat. CARDIOVASCULAR: Denies any exertional angina, dyspnea on exertion, orthopnea, paroxysmal nocturnal dyspnea, palpitations, life-threatening arrhythmias, claudication. PULMONARY: Denies any shortness of breath, cough, phlegm/sputum, hemoptysis, pleuritic chest pain. SLEEP: Denies morning headaches, daytime somnolence or napping. Denies difficulty falling asleep, staying asleep, waking from sleep. Denies knowledge of snoring. GASTROINTESTINAL: Denies any type of dysphagia to either liquids or solids. Denies nausea, vomiting, pyrosis, early satiety, abdominal pain, diarrhea, constipation, or changes in stool consistency or caliber. Denies coffee-ground emesis, hematemesis, hematochezia, or melanotic stools. GENITOURINARY: Denies frequency, urgency, nocturia, hematuria or incontinence (Storage/Irritative symptoms.) Low urinary stream, straining to void, urinary intermittency or hesitancy, splitting of the voiding stream, terminal dribbling. ENDOCRINOLOGIC: Denies polyuria, polydipsia, polyphagia or heat/cold intolerances. HEMATOLOGIC: Denies thrombophilia/previous clots, or coagulopathy/bleeding disorders. ONCOLOGIC: Denies personal history of malignancy. DERMATOLOGIC: Denies rashes or pruritus. PSYCHIATRIC: Denies any suicidal or homicidal ideation. Denies hallucinations. PHYSICAL EXAM GENERAL APPEARANCE: The patient is awake, alert, and oriented, in no acute cardiopulmonary distress. NEUROLOGICAL: Cranial nerves II-XII grossly intact. Motor is 5/5 in bilateral upper and lower extremities proximal to distal. No sensory deficits. HEENT: Face is symmetric. Pupils are equal and reactive. Extraocular movements are intact. NECK: Supple. No JVD. No thyromegaly. No submental, submandibular, pre- /postauricular, occipital or supraclavicular lymphadenopathy. CHEST: Normal chest expansion. No Telemetry. LUNGS: Absence of any rales, rhonchi or any wheezing. CARDIOVASCULAR: Regular. S1 and S2 normal. No appreciable rubs, murmurs or gallops. ABDOMEN: Soft, nontender, and nondistended. There is no rebound, voluntary guarding, or rigidity. : Deferred. No Emmanuel. EXTREMITIES: Non-edematous and not cyanotic. No clubbing. Good capillary refill. SKIN: No skin breakdown. Vital Signs (last 8hr) Date Time Temp Pulse Resp B/P (MAP) Pulse Ox O2 Delivery O2 Flow Rate FiO2 12/01/24 08:00 98.2 84 17 118/58 98 Room Air LABS: Laboratory: Test 12/01/24 11:09 12/01/24 07:40 12/01/24 05:00 11/30/24 10:35 Range/Units Whole Blood Glucose 148 H 70-110 MG/DL Lactic Acid Level 0.8 0.8-2.5 mmol/L White Blood Count 7.1 4.8-10.8 K/uL Red Blood Count 2.29 L 4.50-6.20 MIL/uL Hemoglobin 7.1 L 14.0-18.0 g/dL Hematocrit 21.8 L 42-54 % Mean Corpuscular Volume 95.2 79-99 fL Mean Corpuscular Hemoglobin 31.0 27.0-33.0 pg Mean Corpuscular Hemoglobin Concent 32.6 32.0-36.0 g/dL Red Cell Distribution Width 14.8 11.0-15.5 % Platelet Count 122 L 130-400 K/uL Mean Platelet Volume 10.2 7.5-10.5 fL Immature Granulocyte % (Auto) 0.4 0-1 % Neutrophils (%) (Auto) 77.7 H 40.0-77.0 % Lymphocytes (%) (Auto) 10.9 L 21.0-51.0 % Monocytes (%) (Auto) 8.6 3.0-13.0 % Eosinophils (%) (Auto) 2.3 0.0-8.0 % Basophils (%) (Auto) 0.1 0.0-5.0 % Neutrophils # (Auto) 5.5 1.8-7.7 K/uL Lymphocytes # (Auto) 0.8 L 1.0-4.8 K/uL Monocytes # (Auto) 0.6 0.1-1.0 K/uL Eosinophils # (Auto) 0.16 0.00-0.70 K/uL Basophils # (Auto) 0.01 0.00-0.20 K/uL Absolute Immature Granulocyte (auto 0.03 0-1 K/uL Nucleated Red Blood Cells 0.0 0.0-0.19 % Sodium Level 136 136-145 mmol/L Potassium Level 3.7 3.5-5.1 mmol/L Chloride Level 102 101-111 mmol/L Carbon Dioxide Level 29 21-32 mmol/L Blood Urea Nitrogen 11 7-18 mg/dL Creatinine 1.3 0.5-1.3 mg/dL Glomerular Filtration Rate Calc 58 >90 mL/min Random Glucose 140 H 70-105 mg/dL Total Calcium 7.7 L 8.5-10.1 mg/dL Magnesium Level 1.80 1.80-2.40 mg/dL Total Bilirubin 0.2 # 0.2-1.0 mg/dL Aspartate Amino Transf (AST/SGOT) 16 10-37 U/L Alanine Aminotransferase (ALT/SGPT) 12 12-78 U/L Alkaline Phosphatase 61 50-136 U/L Total Protein 5.2 L 6.0-8.3 g/dL Albumin 1.8 L 3.5-5.0 g/dL Vancomycin Level Trough 16.6 10.0-20.0 UG/ML Prothrombin Time 10.8 9.6-11.6 SEC Prothromb Time International Ratio 1.02 0.85-1.15 Test 11/29/24 20:15 Range/Units Gentamicin Level Trough 1.4 # 0.0-2.0 mcg/mL Current Medications Medications (Trade) Dose Ordered Sig/Ann Marie Route PRN Reason Start Time Stop Time Status Last Admin Dose Admin Acetaminophen (TYLenol 325MG TAB) 650 mg Q6H PRN PO TEMPERATURE GREATER THAN 101.5 11/17/24 22:00 12/17/24 21:59 11/26/24 08:21 650 MG Aspirin (Aspirin 81mg Ec Tab) 81 mg DAILY PO 11/18/24 09:00 11/18/24 14:00 DC 11/18/24 09:48 81 MG Aspirin (Aspirin 81mg Ec Tab) 81 mg DAILY PO 11/19/24 09:00 12/19/24 08:59 12/01/24 09:49 81 MG Atorvastatin Calcium (LIPItor 40MG) 40 mg HS PO 11/18/24 21:00 12/18/24 20:59 11/30/24 19:53 40 MG Clotrimazole (Lotrisone Cream) 1 APPL TO FACE BID TP 11/26/24 21:00 12/26/24 20:59 12/01/24 09:51 1 GM Donepezil HCl (ARIcept 5MG TAB) 5 mg HS PO 11/18/24 21:00 12/18/24 20:59 11/30/24 19:53 5 MG Doxycycline Hyclate (Doxycycline Hyclate) 100 mg Q12H PO 11/18/24 12:00 11/20/24 13:14 DC 11/19/24 22:59 100 MG Enoxaparin Sodium (Lovenox) 40 mg DAILY SQ 11/18/24 09:00 11/18/24 01:27 DC Famotidine (Pepcid 20mg Tab) 20 mg DAILY PO 11/18/24 09:00 12/18/24 08:59 12/01/24 09:49 20 MG Gabapentin (NEURontin 300 MG CAP) 300 mg BID PO 11/18/24 21:00 12/18/24 20:59 12/01/24 09:49 300 MG Gentamicin Sulfate 50 mg/ Sodium Chloride 100 ml @ 200 mls/hr Q12H9 IV 11/30/24 09:00 12/10/24 08:59 12/01/24 09:48 200 MLS/HR Gentamicin Sulfate 60 mg/ Sodium Chloride 100 ml @ 200 mls/hr Q12H9 IV 11/26/24 09:00 11/30/24 06:21 DC 11/29/24 21:07 200 MLS/HR Gentamicin Sulfate 60 mg/ Sodium Chloride 100 ml @ 200 mls/hr Q8H IV 11/24/24 14:00 11/25/24 17:17 DC 11/25/24 06:00 200 MLS/HR Gentamicin Sulfate (GENTAmicin PROTOCOL) 1 each AD IV 11/24/24 13:30 12/08/24 13:29 Home Med (Home Medication) BID OP 11/18/24 21:00 12/18/24 20:59 11/30/24 19:53 1 EACH Hydralazine HCl (APRESOLine 20MG INJ) 10 mg Q6H PRN IV For:SBP above 160;DBP above 90 11/17/24 22:00 12/17/24 21:59 Insulin Human Regular (humuLIN R 100 UNIT/ML 3ML) INSULIN SLIDING SCAL... ACHS SQ 11/18/24 07:30 12/18/24 07:29 11/30/24 19:59 2 UNIT Iron Sucrose (VenoFER) 200 mg DAILY IV 11/29/24 12:00 12/01/24 12:00 DC 12/01/24 09:50 200 MG Magnesium Sulfate 50 ml @ 0 mls/hr PROTOCOL IV 12/01/24 07:00 12/31/24 06:59 Magnesium Sulfate 50 ml @ 0 mls/hr PROTOCOL PRN IV RX MONITORING LEVELS & DOSING 11/17/24 23:00 11/18/24 01:30 DC 11/18/24 00:22 25 MLS/HR Magnesium Sulfate 50 ml @ 0 mls/hr PROTOCOL PRN IV h 11/18/24 01:30 12/18/24 01:29 11/30/24 10:44 25 MLS/HR Morphine Sulfate (morPHINE 2MG SYG) 2 mg Q4H PRN IVP SEVERE PAIN (7-10) 11/17/24 22:00 11/23/24 00:59 DC Nitroglycerin (Nitrostat) 0.4 mg PROTOCOL PRN SL CHEST PAIN 11/17/24 22:00 12/17/24 21:59 Ondansetron HCl (zoFRAN 4MG INJ) 4 mg Q6H PRN IV NAUSEA/VOMITING 11/17/24 22:00 12/17/24 21:59 11/18/24 20:20 4 MG Pharmacy Profile Note (Lace Assessment) 1 each AD MISC 11/24/24 12:30 11/24/24 13:00 DC Pharmacy Profile Note (Lace Assessment) 1 each AD MISC 11/25/24 16:00 11/26/24 07:15 DC Pharmacy Profile Note (Pharmacy Communication) 1 each ONCE MISC 11/20/24 12:30 11/20/24 12:16 DC Piperacillin Sod/ Tazobactam Sod (Zosyn 3.375gm+NS 50ml) 3.375 gm Q8H IV 11/18/24 05:00 11/22/24 10:54 DC 11/22/24 05:35 3.375 GM Potassium Chloride 100 ml @ 100 mls/hr AD PRN IV POTASSIUM PROTOCOL 11/18/24 01:30 12/18/24 01:29 Potassium Chloride (K-Dur/Klor-Con 20meq) 20 meq AD PRN PO POTASSIUM PROTOCOL 11/18/24 01:30 12/18/24 01:29 12/01/24 09:49 20 MEQ Potassium Chloride (KCl 10% Elixir 20meq/15ml) 20 meq AD PRN PO POTASSIUM PROTOCOL 11/18/24 01:30 12/18/24 01:29 Rifampin (riFADin 300 MG CAP) 300 mg BID PO 11/20/24 21:00 11/30/24 20:59 DC 11/30/24 09:57 300 MG Sodium Chloride 1,000 ml @ 100 mls/hr Q10H IV 11/28/24 09:30 11/28/24 19:29 DC 11/28/24 10:15 100 MLS/HR Vancomycin HCl 100 ml @ 100 mls/hr BID@0600,1800 IV 11/26/24 06:00 11/26/24 07:19 DC 11/26/24 05:18 100 MLS/HR Vancomycin HCl 100 ml @ 100 mls/hr ONCE IV 11/25/24 22:30 11/25/24 23:59 DC 11/25/24 22:32 100 MLS/HR Vancomycin HCl 250 ml @ 83.333 mls/ hr Q24H IV 11/20/24 22:00 11/23/24 21:49 DC 11/22/24 21:44 83.333 MLS/HR Vancomycin HCl 250 ml @ 83.333 mls/ hr Q24H IV 11/23/24 22:00 11/24/24 12:24 DC 11/23/24 22:14 83.333 MLS/HR Vancomycin HCl 250 ml @ 125 mls/hr ONCE IV 11/25/24 16:30 11/25/24 18:30 DC 11/25/24 16:39 125 MLS/HR Vancomycin HCl 250 ml @ 125 mls/hr Q12H IV 11/26/24 18:00 11/28/24 06:20 DC 11/27/24 17:09 125 MLS/HR Vancomycin HCl 250 ml @ 125 mls/hr Q24H IV 11/29/24 06:00 12/09/24 05:59 12/01/24 06:11 125 MLS/HR Vancomycin HCl 250 ml @ 125 mls/hr Q24H IV 11/18/24 22:00 11/20/24 21:14 DC 11/19/24 21:20 125 MLS/HR Vancomycin HCl (Vancomycin Protocol) 1 each AD IV 11/17/24 21:30 11/20/24 13:14 DC Vitamin B Complex/ Vit C/Vit E/Zinc (Stresstab/Zinc) 1 tab DAILY PO 11/29/24 09:00 12/29/24 08:59 12/01/24 09:49 1 TAB DIAGNOSTICS / RADIOLOGY: [ ] ASSESSMENT: 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 will need a total of 6 weeks of antibiotics l a.m. labs case specialist: Pending [facility] once insurance approved Continue PT services , continue pain management. [ ] Admit: Medical-surgical floor condition: Guarded Status: Full code IVF: heplock Consultants infectious disease, clerk of scales's CV Antibiotics: Vancomycin IV, rifampin 300mg BID, Gentamicin Q 12 hrs. Repeated blood culture negative for the past 24 hours Case management for LTAC accepted waiting for clerk of scales and CV further workup Labs cbc, cmp, mag+ Replace electrolytes as needed as per protocol to keep potassium above 4.0 magnesium 2.0. PT services out of bed to chair as tolerated Pain management: Morphine as needed Supportive measures: DVT ppx, GI ppx all questions answered Supervising MD: This document was generated in part using voice recognition software, occasional wrong word or sound alike substitutions may have occurred due to the inherent limitations of voice recognition software. Read the chart carefully and recognize using context, where the substitutions have occurred. Although every effort was made to edit the content, data warehouse developer and typing errors may occur ATTESTATION BY PHYSICIAN I have seen and examined the patient. I reviewed the documentation, medical decision making, and treatment plan as noted by the mid-level provider above. I agree with the findings and plan of care. PHONG COCHRAN MD, KATAR[employer]YNA B [employer] Dec 01, 2024 12:28
--- NOTE | 2024-12-01 13:34 | NUR ---
Nutritional f/u Note: Chart, meds, and labs Reviewed. Pt continues on 75gm cc minced moist diet w/ supplements magic cup and prostat jello w/ trays. Pt admit w/ s/s of Severe Malnutrition as noted in initial nutritional assessment. Pt pending transfer to [facility]. Wt Status: stable 60kg Recommend: -Continue B complex MVI -continue current diet w/ PO supplementation. -RD to provide further recommendations based on clinical progress. -Monitor feeding tolerance, %, wt, and labs -Document PO intake and wt daily. -If No BM >3days consider bowel stimulant. -Consider appetite stimulant if intake remains <75%for 3 days. Addendum: 12/01/24 at [address] Amended: Links added.
[2024-12-01] MEDS: MAGNESIUM 2GM PREMIX 50ML 50 ML IV SCH (16:27)
--- NOTE | 2024-12-01 16:49 | NUR ---
cm note spoke to Velma rhodes at [facility] and states Dr Montoya did Peer to peer already. and appealed it. pending approval.
--- NOTE | 2024-12-01 21:38 | PN ---
HISTORY OF PRESENT ILLNESS: The gentleman is 74-year-old who about 7 years ago underwent an aortic valve replacement with a bioprosthetic valve. He has got no significant insufficiency or stenosis and no definitive vegetation by echocardiogram. However, the patient has been admitted to the hospital on 3 occasions with a septic picture. The echocardiogram does demonstrate a circular lesion on the ascending aorta. There could be an abscess at the annulus; however, the tagged white scan was negative for this. The patient has had one positive blood culture and recurrent fevers. If indeed the prosthetic valve is infected, the only treatment will be to treat with antibiotics, sterilize the blood, explant and place a new one in. I have discussed this with the patient and his . The concern of the is that the patient is quite weak and he has been in the hospital for over a couple of weeks. Alternatively, the patient could be discharged with IV antibiotics and he could be rehabilitated some how and get some strength and then return for the aortic valve replacement. Dr. Montoya for Infectious Disease is consulted. In the meantime, we can look for other sources of septic foci. We will follow with you closely. TID: [id number] RECEIPT: [id number]
[2024-12-02] VITALS: BP 94/52; PULSE 83; RESP 17; TEMP 98.7
[2024-12-02 03:49] VITALS: BP 109/57; PULSE 84; RESP 17; TEMP 98.2
[2024-12-02 06:04] LABS: IMMATURE GRANULOCYTE ABSOLUTE 0.04 K/uL (0-1); NUCLEATED RED BLOOD CELLS 0.0 % (0.0-0.19); PLATELET COUNT (AUTO) 122 K/uL (130-400); RED BLOOD CELL COUNT(AUTO) 2.27 MIL/uL (4.50-6.20); RED CELL DISTRIBUTION WIDTH 14.9 % (11.0-15.5); WHITE BLOOD COUNT (AUTO) 7.3 K/uL (4.8-10.8)
[2024-12-02 06:19] LABS: ASPARTATE AMINOTRANSFERASE 16.0 U/L (10-37); CREATININE 1.6 mg/dL (0.5-1.3); GLOMERULAR FILTR. RATE CALC 46.0 mL/min (>90); GLUCOSE,RANDOM 150.0 mg/dL (70-105); SODIUM SERUM 140.0 mmol/L (136-145); TOTAL PROTEIN, SERUM 5.3 g/dL (6.0-8.3); UREA NITROGEN, BLOOD 11.0 mg/dL (7-18)
[2024-12-02 08:00] VITALS: BP 121/52; PULSE 84; RESP 16; TEMP 99.5; O2SAT 96
[2024-12-02 08:34] LABS: IMMATURE GRANULOCYTE ABSOLUTE 0.03 K/uL (0-1); NUCLEATED RED BLOOD CELLS 0.0 % (0.0-0.19); PLATELET COUNT (AUTO) 112 K/uL (130-400); RED BLOOD CELL COUNT(AUTO) 2.28 MIL/uL (4.50-6.20); RED CELL DISTRIBUTION WIDTH 15.1 % (11.0-15.5); WHITE BLOOD COUNT (AUTO) 7.2 K/uL (4.8-10.8)
[2024-12-02 09:00] LABS: INR 1.01 (0.85-1.15)
--- NOTE | 2024-12-02 10:36 | NUR ---
BLOOD TRANSFUSION STARTED BLOOD TRANSFUSION AT 1028 AT A RATE OF 60ML/HR. AT BEDSIDE. PATIENT LAYING ON BACK NO COMPLAINS OF PAIN OR DISCOMFORT. VITAL SIGNS AT 1028 WERE TEMP 98.3, RESP. 19, BP 109/54, AR 83. 5 MINUTE CHECK, PATIENT NOT REPORTING ANY ISSUES OR DISCOMFORT. VITALS ARE BP 11/52, RESP. 19, TEMP. 98.3, AR 83. 15 MINUTE CHECK. VITALS BP 104/49, RESP. 19, TEMP 99.0, PULSE 82. PATIENT DOESN'T COMPLAIN OF ANY ISSUES. AT BEDSIDE.
--- NOTE | 2024-12-02 10:54 | PN ---
[facility] PROGRESS NOTE Date of Service: Dec 02, 2024 Time of Service: 10:[address] Cochran SUBJECTIVE: [ ] Mr. Bennett is a 74-year-old male that was seen and examined today on 11/17/2024. Patient is a poor historian and personal health due to past medical history of dementia. Patient's , Erma Thomas is at bedside. Patient says that patient came to the emergency department with a chief complaint of weakness. Onset was today at 5:00 p.m.. Location is to bilateral lower extremities. Duration is constant. Character is described as, "he was just sitting in the sofa all day and sleeping more than usual. There was no alleviating factors. There was no aggravating factors. Spouse reports associated fever and chills. 11/18/24 patient was seen earlier patient is lying in bed with family at bedside. Patient was discharged from LTAC for long-term IV antibiotics discharged home with oral antibiotics we will have ID on board. Patient denied chest pain or shortness for breath. 11/19/24 patient was seen patient denied chest pain shortness a breath. He complaints being constipated we will provide as needed lactulose. Patient waiting for CT lumbar spine examined to be done most likely on Wednesday. We will have Physical therapy work with patient as well. All questions and answers addressed appropriately. 11/20/2024 patient was seen earlier patient is lying in bed patient went for a MYKE this morning. We will follow-up results continues with triple antibiotics tolerating well cultures in process. Continues to work with physical therapy primary nurse reports no events overnight 11/21/2024 patient was seen earlier patient is lying in bed encourage out of bed to chair as tolerated. Continue with broad-spectrum antibiotics vancomycin Zosyn IV. 11/22/24 patient is seen and examined patient is lying in bed. Case management discharge planning LTAC patient is pending CT angio for abscess on valve. We will continue to monitor patient closely. 11/23/24 PATIENT IS SEEN AND EXAMINED PATIENT IS FULLY AWAKE ALERT ORIENTED X3.chest CT angiogram demonstrated no definitive evidence of rodrigo-aortic valvular abscess, DR. 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 11/24/24 patient was working with physical therapy ambulate with walker with assist. Patient will remain sitting in recliner as tolerated. Waiting for CV recommendations. Patient denied chest pain or shortness for breath patient reports having difficulty sleeping yesterday 11/25/24 late entry: The patient is waiting to get in shower, reports no new complaints. continue with Series of CT scans: given to perivalvular aortic abscess, continue with Broad spectrum antibiotics will follow continuous conveyor screen drier recommendations. 11/26/24 patient is seen patient reports no chest pain or shortness for breath patient went for his last CT imaging we will follow-up continuous conveyor screen drier's recommendations. Primary nurse reports no events overnight 11/27/24 patient was seen patient was fully awake alert oriented x3 spouse at bedside. Denied chest pain shortness a breath. Continue with IV antibiotics WBCs improving down to8.5 Patient is having a white blood cell scan results are still pending. Bail Bond Agent's Dr. King we will proceed with left heart catheterization in the morning. 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 at bedside we will wait for CV and continuous conveyor screen drier's recommendation if patient will need surgery. Continues with broad-spectrum antibiotics low hgb: will start IV venofer. 11/30/24 patient was seen by nurse practitioner and physician during rounding in room 419. As per cardiovascular surgeon patient will need to complete six weeks of antibiotics and then come back to the hospital for possible replacement of bioprosthesis. . Blood grew Streptococcus epidermidis. Case management was consulted and patient is pending [facility] placement once insurance approved. We will continue to monitor patient in the meantime. A.m. labs. 12/01/24 patient was seen by nurse practitioner and physician during rounding in room 419. Patient had a temp last night at 11:15 p.m. of 100.9. Lactic acid was 0.9. No more episodes of any temperature afterwards. Patient denies any shortness of breath, chest pain, nausea, vomiting. Dietary was consulted. We will continue to monitor patient in the meantime. A.m. labs. Patient is pending [facility] once insurance accepted. Medication reconciliation was performed by RIDING COACH today 12/01/2024 and placed on chart. 12/02/24 patient was seen by nurse practitioner and physician during rounding in room 419. Today WBC is 7.0 we will order one PRBC to be transfused. Occult blood was also ordered and we will consult GI for further recommendations-plan. Patient was denied from [facility] and peer to peer was performed per Infectious Disease doctor. Patient will need six weeks of antibiotics for blood positive for Streptococcus epidermidis. Once the antibiotics will be completed cardiovascular surgeon we will proceed with replacement of bioprosthesis with a new one. Patient was also evaluated by bi data architect and recommends to continue multivitamin supplements current diet with p.o. supplementation. If no BM > three days consulted bowel stimulant. And consider appetite stimulant if intake remains less than 75% for three days. We will continue to monitor patient in the meantime. A.m. labs. Family member at the bedside was updated regards to further plan REVIEW OF SYSTEMS CONSTITUTIONAL: Denies fevers, chills, or night sweats. No unintentional weight loss reported. NEUROLOGICAL: Denies headache, amaurosis fugax, motor weakness, sensory deficit, vertigo/spinning sensation, gait abnormalities, or tremors. ENT: No hearing loss, otalgia, otorrhea, rhinitis, rhinorrhea, hoarseness, or sore throat. CARDIOVASCULAR: Denies any exertional angina, dyspnea on exertion, orthopnea, paroxysmal nocturnal dyspnea, palpitations, life-threatening arrhythmias, claudication. PULMONARY: Denies any shortness of breath, cough, phlegm/sputum, hemoptysis, pleuritic chest pain. SLEEP: Denies morning headaches, daytime somnolence or napping. Denies difficulty falling asleep, staying asleep, waking from sleep. Denies knowledge of snoring. GASTROINTESTINAL: Denies any type of dysphagia to either liquids or solids. Denies nausea, vomiting, pyrosis, early satiety, abdominal pain, diarrhea, constipation, or changes in stool consistency or caliber. Denies coffee-ground emesis, hematemesis, hematochezia, or melanotic stools. GENITOURINARY: Denies frequency, urgency, nocturia, hematuria or incontinence (Storage/Irritative symptoms.) Low urinary stream, straining to void, urinary intermittency or hesitancy, splitting of the voiding stream, terminal dribbling. ENDOCRINOLOGIC: Denies polyuria, polydipsia, polyphagia or heat/cold intolerances. HEMATOLOGIC: Denies thrombophilia/previous clots, or coagulopathy/bleeding disorders. ONCOLOGIC: Denies personal history of malignancy. DERMATOLOGIC: Denies rashes or pruritus. PSYCHIATRIC: Denies any suicidal or homicidal ideation. Denies hallucinations. PHYSICAL EXAM GENERAL APPEARANCE: The patient is awake, alert, and oriented, in no acute cardiopulmonary distress. NEUROLOGICAL: Cranial nerves II-XII grossly intact. Motor is 5/5 in bilateral upper and lower extremities proximal to distal. No sensory deficits. HEENT: Face is symmetric. Pupils are equal and reactive. Extraocular movements are intact. NECK: Supple. No JVD. No thyromegaly. No submental, submandibular, pre- /postauricular, occipital or supraclavicular lymphadenopathy. CHEST: Normal chest expansion. No Telemetry. LUNGS: Absence of any rales, rhonchi or any wheezing. CARDIOVASCULAR: Regular. S1 and S2 normal. No appreciable rubs, murmurs or gallops. ABDOMEN: Soft, nontender, and nondistended. There is no rebound, voluntary guarding, or rigidity. : Deferred. No Emmanuel. EXTREMITIES: Non-edematous and not cyanotic. No clubbing. Good capillary re fill. SKIN: No skin breakdown. Vital Signs (last 8hr) Date Time Temp Pulse Resp B/P (MAP) Pulse Ox O2 Delivery O2 Flow Rate FiO2 12/02/24 03:49 98.2 84 17 109/57 96 Room Air LABS: Laboratory: Test 12/02/24 10:38 12/02/24 08:23 12/02/24 05:40 12/01/24 23:01 Range/Units Whole Blood Glucose 185 H 70-110 MG/DL White Blood Count 7.2 4.8-10.8 K/uL Red Blood Count 2.28 L 4.50-6.20 MIL/uL Hemoglobin 7.0 *L 14.0-18.0 g/dL Hematocrit 22.1 L 42-54 % Mean Corpuscular Volume 96.9 79-99 fL Mean Corpuscular Hemoglobin 30.7 27.0-33.0 pg Mean Corpuscular Hemoglobin Concent 31.7 L 32.0-36.0 g/dL Red Cell Distribution Width 15.1 11.0-15.5 % Platelet Count 112 L 130-400 K/uL Mean Platelet Volume 10.1 7.5-10.5 fL Immature Granulocyte % (Auto) 0.4 0-1 % Neutrophils (%) (Auto) 75.4 40.0-77.0 % Lymphocytes (%) (Auto) 13.1 L 21.0-51.0 % Monocytes (%) (Auto) 8.2 3.0-13.0 % Eosinophils (%) (Auto) 2.5 0.0-8.0 % Basophils (%) (Auto) 0.4 0.0-5.0 % Neutrophils # (Auto) 5.5 1.8-7.7 K/uL Lymphocytes # (Auto) 1.0 1.0-4.8 K/uL Monocytes # (Auto) 0.6 0.1-1.0 K/uL Eosinophils # (Auto) 0.18 0.00-0.70 K/uL Basophils # (Auto) 0.03 0.00-0.20 K/uL Absolute Immature Granulocyte (auto 0.03 0-1 K/uL Nucleated Red Blood Cells 0.0 0.0-0.19 % Prothrombin Time 10.7 9.6-11.6 SEC Prothromb Time International Ratio 1.01 0.85-1.15 Sodium Level 140 136-145 mmol/L Potassium Level 4.9 3.5-5.1 mmol/L Chloride Level 105 101-111 mmol/L Carbon Dioxide Level 29 21-32 mmol/L Blood Urea Nitrogen 11 7-18 mg/dL Creatinine 1.6 H 0.5-1.3 mg/dL Glomerular Filtration Rate Calc 46 >90 mL/min Random Glucose 150 H 70-105 mg/dL Total Calcium 7.9 L 8.5-10.1 mg/dL Magnesium Level 2.20 1.80-2.40 mg/dL Total Bilirubin 0.2 0.2-1.0 mg/dL Aspartate Amino Transf (AST/SGOT) 16 10-37 U/L Alanine Aminotransferase (ALT/SGPT) 12 12-78 U/L Alkaline Phosphatase 62 50-136 U/L Total Protein 5.3 L 6.0-8.3 g/dL Albumin 1.8 L 3.5-5.0 g/dL Gentamicin Level Peak 3.6 #L 4.0-8.0 mcg/mL Test 12/01/24 20:00 12/01/24 16:45 12/01/24 07:40 12/01/24 05:00 Range/Units Gentamicin Level Trough 2.3 #H 0.0-2.0 mcg/mL Bedside Glucose Comment Notified Nurse Lactic Acid Level 0.8 0.8-2.5 mmol/L Vancomycin Level Trough 16.6 10.0-20.0 UG/ML Current Medications Medications (Trade) Dose Ordered Sig/Ann Marie Route PRN Reason Start Time Stop Time Status Last Admin Dose Admin Acetaminophen (TYLenol 325MG TAB) 650 mg ONCE PO 12/02/24 07:30 12/02/24 07:36 DC Acetaminophen (TYLenol 325MG TAB) 650 mg Q6H PRN PO TEMPERATURE GREATER THAN 101.5 11/17/24 22:00 12/17/24 21:59 11/26/24 08:21 650 MG Aspirin (Aspirin 81mg Ec Tab) 81 mg DAILY PO 11/18/24 09:00 11/18/24 14:00 DC 11/18/24 09:48 81 MG Aspirin (Aspirin 81mg Ec Tab) 81 mg DAILY PO 11/19/24 09:00 12/19/24 08:59 12/01/24 09:49 81 MG Atorvastatin Calcium (LIPItor 40MG) 40 mg HS PO 11/18/24 21:00 12/18/24 20:59 12/01/24 21:48 40 MG Clotrimazole (Lotrisone Cream) 1 APPL TO FACE BID TP 11/26/24 21:00 12/26/24 20:59 12/01/24 21:51 1 GM Diphenhydramine HCl (BENAdryl CAP) 25 mg ONCE PO 12/02/24 07:30 12/02/24 07:36 DC Donepezil HCl (ARIcept 5MG TAB) 5 mg HS PO 11/18/24 21:00 12/18/24 20:59 12/01/24 21:50 5 MG Doxycycline Hyclate (Doxycycline Hyclate) 100 mg Q12H PO 11/18/24 12:00 11/20/24 13:14 DC 11/19/24 22:59 100 MG Enoxaparin Sodium (Lovenox) 40 mg DAILY SQ 11/18/24 09:00 11/18/24 01:27 DC Famotidine (Pepcid 20mg Tab) 20 mg DAILY PO 11/18/24 09:00 12/18/24 08:59 12/01/24 09:49 20 MG Gabapentin (NEURontin 300 MG CAP) 300 mg BID PO 11/18/24 21:00 12/18/24 20:59 12/01/24 21:50 300 MG Gentamicin Sulfate 50 mg/ Sodium Chloride 100 ml @ 200 mls/hr Q12H9 IV 11/30/24 09:00 12/02/24 10:30 DC 12/01/24 21:48 200 MLS/HR Gentamicin Sulfate 60 mg/ Sodium Chloride 100 ml @ 200 mls/hr Q12H9 IV 11/26/24 09:00 11/30/24 06:21 DC 11/29/24 21:07 200 MLS/HR Gentamicin Sulfate 60 mg/ Sodium Chloride 100 ml @ 200 mls/hr Q24H IV 12/03/24 09:00 12/17/24 08:59 Gentamicin Sulfate 60 mg/ Sodium Chloride 100 ml @ 200 mls/hr Q8H IV 11/24/24 14:00 11/25/24 17:17 DC 11/25/24 06:00 200 MLS/HR Gentamicin Sulfate (GENTAmicin PROTOCOL) 1 each AD IV 11/24/24 13:30 12/08/24 13:29 Home Med (Home Medication) BID OP 11/18/24 21:00 12/18/24 20:59 11/30/24 19:53 1 EACH Hydralazine HCl (APRESOLine 20MG INJ) 10 mg Q6H PRN IV For:SBP above 160;DBP above 90 11/17/24 22:00 12/17/24 21:59 Insulin Human Regular (humuLIN R 100 UNIT/ML 3ML) INSULIN SLIDING SCAL... ACHS SQ 11/18/24 07:30 12/18/24 07:29 12/01/24 21:03 4 UNIT Iron Sucrose (VenoFER) 200 mg DAILY IV 11/29/24 12:00 12/01/24 12:00 DC 12/01/24 09:50 200 MG Magnesium Sulfate 50 ml @ 0 mls/hr PROTOCOL IV 12/01/24 07:00 12/31/24 06:59 12/01/24 16:27 25 MLS/HR Magnesium Sulfate 50 ml @ 0 mls/hr PROTOCOL PRN IV RX MONITORING LEVELS & DOSING 11/17/24 23:00 11/18/24 01:30 DC 11/18/24 00:22 25 MLS/HR Magnesium Sulfate 50 ml @ 0 mls/hr PROTOCOL PRN IV h 11/18/24 01:30 12/18/24 01:29 11/30/24 10:44 25 MLS/HR Morphine Sulfate (morPHINE 2MG SYG) 2 mg Q4H PRN IVP SEVERE PAIN (7-10) 11/17/24 22:00 11/23/24 00:59 DC Nitroglycerin (Nitrostat) 0.4 mg PROTOCOL PRN SL CHEST PAIN 11/17/24 22:00 12/17/24 21:59 Ondansetron HCl (zoFRAN 4MG INJ) 4 mg Q6H PRN IV NAUSEA/VOMITING 11/17/24 22:00 12/17/24 21:59 11/18/24 20:20 4 MG Pharmacy Profile Note (Lace Assessment) 1 each AD MISC 11/24/24 12:30 11/24/24 13:00 DC Pharmacy Profile Note (Lace Assessment) 1 each AD MISC 11/25/24 16:00 11/26/24 07:15 DC Pharmacy Profile Note (Pharmacy Communication) 1 each ONCE MISC 11/20/24 12:30 11/20/24 12:16 DC Piperacillin Sod/ Tazobactam Sod (Zosyn 3.375gm+NS 50ml) 3.375 gm Q8H IV 11/18/24 05:00 11/22/24 10:54 DC 11/22/24 05:35 3.375 GM Potassium Chloride 100 ml @ 100 mls/hr AD PRN IV POTASSIUM PROTOCOL 11/18/24 01:30 12/18/24 01:29 Potassium Chloride (K-Dur/Klor-Con 20meq) 20 meq AD PRN PO POTASSIUM PROTOCOL 11/18/24 01:30 12/18/24 01:29 12/01/24 09:49 20 MEQ Potassium Chloride (KCl 10% Elixir 20meq/15ml) 20 meq AD PRN PO POTASSIUM PROTOCOL 11/18/24 01:30 12/18/24 01:29 Rifampin (riFADin 300 MG CAP) 300 mg BID PO 11/20/24 21:00 11/30/24 20:59 DC 11/30/24 09:57 300 MG Sodium Chloride 1,000 ml @ 100 mls/hr Q10H IV 11/28/24 09:30 11/28/24 19:29 DC 11/28/24 10:15 100 MLS/HR Vancomycin HCl 100 ml @ 100 mls/hr BID@0600,1800 IV 11/26/24 06:00 11/26/24 07:19 DC 11/26/24 05:18 100 MLS/HR Vancomycin HCl 100 ml @ 100 mls/hr ONCE IV 11/25/24 22:30 11/25/24 23:59 DC 11/25/24 22:32 100 MLS/HR Vancomycin HCl 250 ml @ 83.333 mls/ hr Q24H IV 11/20/24 22:00 11/23/24 21:49 DC 11/22/24 21:44 83.333 MLS/HR Vancomycin HCl 250 ml @ 83.333 mls/ hr Q24H IV 11/23/24 22:00 11/24/24 12:24 DC 11/23/24 22:14 83.333 MLS/HR Vancomycin HCl 250 ml @ 125 mls/hr ONCE IV 11/25/24 16:30 11/25/24 18:30 DC 11/25/24 16:39 125 MLS/HR Vancomycin HCl 250 ml @ 125 mls/hr Q12H IV 11/26/24 18:00 11/28/24 06:20 DC 11/27/24 17:09 125 MLS/HR Vancomycin HCl 250 ml @ 125 mls/hr Q24H IV 11/29/24 06:00 12/09/24 05:59 12/02/24 05:23 125 MLS/HR Vancomycin HCl 250 ml @ 125 mls/hr Q24H IV 11/18/24 22:00 11/20/24 21:14 DC 11/19/24 21:20 125 MLS/HR Vancomycin HCl (Vancomycin Protocol) 1 each AD IV 11/17/24 21:30 11/20/24 13:14 DC Vitamin B Complex/ Vit C/Vit E/Zinc (Stresstab/Zinc) 1 tab DAILY PO 11/29/24 09:00 12/29/24 08:59 12/01/24 09:49 1 TAB DIAGNOSTICS / RADIOLOGY: [ ] ASSESSMENT: 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 Occult blood was also ordered and we will consult GI for further recommendations-plan. Patient was denied from [facility] and peer to peer was performed per Infectious Disease doctor. Patient was also evaluated by bi data architect and recommends to continue multivitamin supplements current diet with p.o. supplementation. If no BM > three days consulted bowel stimulant. And consider appetite stimulant if intake remains less than 75% for three days. l a.m. labs case technician: Pending [email or web address] once insurance approved Continue PT services , continue pain management. [ ] Admit: Medical-surgical floor condition: Guarded Status: Full code IVF: heplock Consultants infectious disease, continuous conveyor screen drier's CV Antibiotics: Vancomycin IV, rifampin 300mg BID, Gentamicin Q 12 hrs. Repeated blood culture negative for the past 24 hours Case management for LTAC accepted waiting for continuous conveyor screen drier and CV further workup Labs cbc, cmp, mag+ Replace electrolytes as needed as per protocol to keep potassium above 4.0 magnesium 2.0. PT services out of bed to chair as tolerated Pain management: Morphine as needed Supportive measures: DVT ppx, GI ppx all questions answered Supervising MD: This document was generated in part using voice recognition software, occasional wrong word or sound alike substitutions may have occurred due to the inherent limitations of voice recognition software. Read the chart carefully and recognize using context, where the substitutions have occurred. Although every effort was made to edit the content, portainer operator and typing errors may occur ATTESTATION BY PHYSICIAN I have seen and examined the patient. I reviewed the documentation, medical decision making, and treatment plan as noted by the mid-level provider above. I agree with the findings and plan of care. PHONG COCHRAN MD, [employer] Dec 02, 2024 10:54
--- NOTE | 2024-12-02 11:00 | NUR ---
UNABLE TO SEE PATIENT, RECEIVING BLOOD. PT TO FOLLOW. Addendum: 12/02/24 at 1420 by HOMERO GARCIA PT Amended: Links added.
[2024-12-02 11:55] VITALS: BP 119/56; PULSE 83; RESP 16; TEMP 99.5
[2024-12-02 16:00] VITALS: BP 143/59; PULSE 84; RESP 16; TEMP 99.8
--- NOTE | 2024-12-02 17:15 | PN ---
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 He has had positive blood cultures, however a WBC tagged study was negative. Ultimately, the plan is to continue a full course of IV antibiotics prior to considering repeat surgery in this debilitated patient. Blood cultures 11/30 are negative times 48 hours. Blood cultures were recommended by Cardiology for yesterday but were not done. T-max over the last 24 hours and most recently is 99.5. WBCs normal. His H and H today are 7.0 and 22.1. Laboratory: [ ] Hematology Labs: Test 12/02/24 08:23 Range/Units White Blood Count 7.2 4.8-10.8 K/uL Red Blood Count 2.28 L 4.50-6.20 MIL/uL Hemoglobin 7.0 *L 14.0-18.0 g/dL Hematocrit 22.1 L 42-54 % Mean Corpuscular Volume 96.9 79-99 fL Mean Corpuscular Hemoglobin 30.7 27.0-33.0 pg Mean Corpuscular Hemoglobin Concent 31.7 L 32.0-36.0 g/dL Red Cell Distribution Width 15.1 11.0-15.5 % Platelet Count 112 L 130-400 K/uL Mean Platelet Volume 10.1 7.5-10.5 fL Immature Granulocyte % (Auto) 0.4 0-1 % Neutrophils (%) (Auto) 75.4 40.0-77.0 % Lymphocytes (%) (Auto) 13.1 L 21.0-51.0 % Monocytes (%) (Auto) 8.2 3.0-13.0 % Eosinophils (%) (Auto) 2.5 0.0-8.0 % Basophils (%) (Auto) 0.4 0.0-5.0 % Neutrophils # (Auto) 5.5 1.8-7.7 K/uL Lymphocytes # (Auto) 1.0 1.0-4.8 K/uL Monocytes # (Auto) 0.6 0.1-1.0 K/uL Eosinophils # (Auto) 0.18 0.00-0.70 K/uL Basophils # (Auto) 0.03 0.00-0.20 K/uL Absolute Immature Granulocyte (auto 0.03 0-1 K/uL Nucleated Red Blood Cells 0.0 0.0-0.19 % Chemistry Labs: Test 12/02/24 15:56 12/02/24 05:40 12/01/24 16:45 12/01/24 07:40 Range/Units Whole Blood Glucose 186 H 70-110 MG/DL Sodium Level 140 136-145 mmol/L Potassium Level 4.9 3.5-5.1 mmol/L Chloride Level 105 101-111 mmol/L Carbon Dioxide Level 29 21-32 mmol/L Blood Urea Nitrogen 11 7-18 mg/dL Creatinine 1.6 H 0.5-1.3 mg/dL Glomerular Filtration Rate Calc 46 >90 mL/min Random Glucose 150 H 70-105 mg/dL Total Calcium 7.9 L 8.5-10.1 mg/dL Magnesium Level 2.20 1.80-2.40 mg/dL Total Bilirubin 0.2 0.2-1.0 mg/dL Aspartate Amino Transf (AST/SGOT) 16 10-37 U/L Alanine Aminotransferase (ALT/SGPT) 12 12-78 U/L Alkaline Phosphatase 62 50-136 U/L Total Protein 5.3 L 6.0-8.3 g/dL Albumin 1.8 L 3.5-5.0 g/dL Bedside Glucose Comment Notified Nurse Lactic Acid Level 0.8 0.8-2.5 mmol/L Coagulation Labs: Test 12/02/24 08:23 Range/Units Prothrombin Time 10.7 9.6-11.6 SEC Prothromb Time International Ratio 1.01 0.85-1.15 Impression and Plan: 1. At this point, we will send another two sets of blood cultures today 2. Further management per doctors Francis and Lindsay. ANA CONROY MD Dec 02, 2024 17:15
[2024-12-02 20:00] VITALS: BP 121/55; PULSE 85; RESP 19; TEMP 99.2; O2SAT 94
[2024-12-03] VITALS (8 sets, daily range): BP systolic 94–147; BP diastolic 52–92; PULSE 55–100; RESP 16–19; TEMP 97.9–99.4; O2SAT 96–98
[2024-12-03 05:46] LABS: IMMATURE GRANULOCYTE ABSOLUTE 0.02 K/uL (0-1); NUCLEATED RED BLOOD CELLS 0.0 % (0.0-0.19); PLATELET COUNT (AUTO) 128 K/uL (130-400); RED BLOOD CELL COUNT(AUTO) 2.73 MIL/uL (4.50-6.20); RED CELL DISTRIBUTION WIDTH 16.7 % (11.0-15.5); WHITE BLOOD COUNT (AUTO) 7.9 K/uL (4.8-10.8)
[2024-12-03 06:22] LABS: ASPARTATE AMINOTRANSFERASE 17.0 U/L (10-37); CREATININE 1.7 mg/dL (0.5-1.3); GLOMERULAR FILTR. RATE CALC 42.0 mL/min (>90); GLUCOSE,RANDOM 150.0 mg/dL (70-105); SODIUM SERUM 141.0 mmol/L (136-145); TOTAL PROTEIN, SERUM 5.5 g/dL (6.0-8.3); UREA NITROGEN, BLOOD 10.0 mg/dL (7-18)
--- NOTE | 2024-12-03 08:25 | PN ---
[facility] PROGRESS NOTE Date of Service: Dec 03, 2024 Time of Service: 08:[address] Cochran SUBJECTIVE: [ ] Mr. Bennett is a 74-year-old male that was seen and examined today on 11/17/2024. Patient is a poor historian and personal health due to past medical history of dementia. Patient's , Erma Thomas is at bedside. Patient says that patient came to the emergency department with a chief complaint of weakness. Onset was today at 5:00 p.m.. Location is to bilateral lower extremities. Duration is constant. Character is described as, "he was just sitting in the sofa all day and sleeping more than usual. There was no alleviating factors. There was no aggravating factors. Spouse reports associated fever and chills. 11/18/24 patient was seen earlier patient is lying in bed with family at bedside. Patient was discharged from LTAC for long-term IV antibiotics discharged home with oral antibiotics we will have ID on board. Patient denied chest pain or shortness for breath. 11/19/24 patient was seen patient denied chest pain shortness a breath. He complaints being constipated we will provide as needed lactulose. Patient waiting for CT lumbar spine examined to be done most likely on Wednesday. We will have Physical therapy work with patient as well. All questions and answers addressed appropriately. 11/20/2024 patient was seen earlier patient is lying in bed patient went for a MYKE this morning. We will follow-up results continues with triple antibiotics tolerating well cultures in process. Continues to work with physical therapy primary nurse reports no events overnight 11/21/2024 patient was seen earlier patient is lying in bed encourage out of bed to chair as tolerated. Continue with broad-spectrum antibiotics vancomycin Zosyn IV. 11/22/24 patient is seen and examined patient is lying in bed. Case management discharge planning LTAC patient is pending CT angio for abscess on valve. We will continue to monitor patient closely. 11/23/24 PATIENT IS SEEN AND EXAMINED PATIENT IS FULLY AWAKE ALERT ORIENTED X3.chest CT angiogram demonstrated no definitive evidence of rodrigo-aortic valvular abscess, DR. 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 11/24/24 patient was working with physical therapy ambulate with walker with assist. Patient will remain sitting in recliner as tolerated. Waiting for CV recommendations. Patient denied chest pain or shortness for breath patient reports having difficulty sleeping yesterday 11/25/24 late entry: The patient is waiting to get in shower, reports no new complaints. continue with Series of CT scans: given to perivalvular aortic abscess, continue with Broad spectrum antibiotics will follow profiling machine setup operator recommendations. 11/26/24 patient is seen patient reports no chest pain or shortness for breath patient went for his last CT imaging we will follow-up profiling machine setup operator's recommendations. Primary nurse reports no events overnight 11/27/24 patient was seen patient was fully awake alert oriented x3 spouse at bedside. Denied chest pain shortness a breath. Continue with IV antibiotics WBCs improving down to8.5 Patient is having a white blood cell scan results are still pending. Template Storage Clerk's Dr. King we will proceed with left heart catheterization in the morning. 11/28/24 patient is going for a left heart catheterization this morning per profiling machine setup operator's WBCs scan was positive we will wait for final recommendations from CV and profiling machine setup operator's; with possible a redo AVR versus long-term antibiotics the patient return back from quality assurance qa lab technician without complications 11/29/24 patient is seen earlier patient is fully awake alert oriented x3 denied chest pain. at bedside we will wait for CV and profiling machine setup operator's recommendation if patient will need surgery. Continues with broad-spectrum antibiotics low hgb: will start IV venofer. 11/30/24 patient was seen by nurse practitioner and physician during rounding in room 419. As per cardiovascular surgeon patient will need to complete six weeks of antibiotics and then come back to the hospital for possible replacement of bioprosthesis. . Blood grew Streptococcus epidermidis. Case management was consulted and patient is pending [facility] placement once insurance approved. We will continue to monitor patient in the meantime. A.m. labs. 12/01/24 patient was seen by nurse practitioner and physician during rounding in room 419. Patient had a temp last night at 11:15 p.m. of 100.9. Lactic acid was 0.9. No more episodes of any temperature afterwards. Patient denies any shortness of breath, chest pain, nausea, vomiting. Dietary was consulted. We will continue to monitor patient in the meantime. A.m. labs. [facility] insurance accepted. Medication reconciliation was performed by RN NEONATAL today 12/01/2024 and placed on chart. 12/02/24 patient was seen by nurse practitioner and physician during rounding in room 419. Today WBC is 7.0 we will order one PRBC to be transfused. Occult blood was also ordered and we will consult GI for further recommendations-plan. Patient was denied from [facility] and peer to peer was performed per Infectious Disease doctor. Patient will need six weeks of antibiotics for blood positive for Streptococcus epidermidis. Once the antibiotics will be completed cardiovascular surgeon we will proceed with replacement of bioprosthesis with a new one. Patient was also evaluated by studio set up worker and recommends to continue multivitamin supplements current diet with p.o. supplementation. If no BM > three days consulted bowel stimulant. And consider appetite stimulant if intake remains less than 75% for three days. We will continue to monitor patient in the meantime. A.m. labs. Family member at the bedside was updated regards to further plan 12/03 patient was seen by nurse practitioner and physician during rounding in room 419. Patient is s/p one PRBC transfusion on 12/02/2024. Morning hemoglobin 8.3. Patient was evaluated by the GI and is pending colonoscopy and EGD tomorrow 12/04/2024. Once medically cleared patient will be discharged to [facility] once approved. Case management working on disposition. We will continue to monitor patient in the meantime. A.m. labs REVIEW OF SYSTEMS CONSTITUTIONAL: Denies fevers, chills, or night sweats. No unintentional weight loss reported. NEUROLOGICAL: Denies headache, amaurosis fugax, motor weakness, sensory deficit, vertigo/spinning sensation, gait abnormalities, or tremors. ENT: No hearing loss, otalgia, otorrhea, rhinitis, rhinorrhea, hoarseness, or sore throat. CARDIOVASCULAR: Denies any exertional angina, dyspnea on exertion, orthopnea, paroxysmal nocturnal dyspnea, palpitations, life-threatening arrhythmias, claudication. PULMONARY: Denies any shortness of breath, cough, phlegm/sputum, hemoptysis, pleuritic chest pain. SLEEP: Denies morning headaches, daytime somnolence or napping. Denies difficulty falling asleep, staying asleep, waking from sleep. Denies knowledge of snoring. GASTROINTESTINAL: Denies any type of dysphagia to either liquids or solids. Denies nausea, vomiting, pyrosis, early satiety, abdominal pain, diarrhea, constipation, or changes in stool consistency or caliber. Denies coffee-ground emesis, hematemesis, hematochezia, or melanotic stools. GENITOURINARY: Denies frequency, urgency, nocturia, hematuria or incontinence (Storage/Irritative symptoms.) Low urinary stream, straining to void, urinary intermittency or hesitancy, splitting of the voiding stream, terminal dribbling. ENDOCRINOLOGIC: Denies polyuria, polydipsia, polyphagia or heat/cold intolerances. HEMATOLOGIC: Denies thrombophilia/previous clots, or coagulopathy/bleeding disorders. ONCOLOGIC: Denies personal history of malignancy. DERMATOLOGIC: Denies rashes or pruritus. PSYCHIATRIC: Denies any suicidal or homicidal ideation. Denies hallucinations. PHYSICAL EXAM GENERAL APPEARANCE: The patient is awake, alert, and oriented, in no acute cardiopulmonary distress. NEUROLOGICAL: Cranial nerves II-XII grossly intact. Motor is 5/5 in bilateral upper and lower extremities proximal to distal. No sensory deficits. HEENT: Face is symmetric. Pupils are equal and reactive. Extraocular movements are intact. NECK: Supple. No JVD. No thyromegaly. No submental, submandibular, pre- /postauricular, occipital or supraclavicular lymphadenopathy. CHEST: Normal chest expansion. No Telemetry. LUNGS: Absence of any rales, rhonchi or any wheezing. CARDIOVASCULAR: Regular. S1 and S2 normal. No appreciable rubs, murmurs or gallops. ABDOMEN: Soft, nontender, and nondistended. There is no rebound, voluntary guarding, or rigidity. : Deferred. No Emmanuel. EXTREMITIES: Non-edematous and not cyanotic. No clubbing. Good capillary refill. SKIN: No skin breakdown. Vital Signs (last 8hr) Date Time Temp Pulse Resp B/P (MAP) Pulse Ox O2 Delivery O2 Flow Rate FiO2 12/03/24 04:00 99.3 79 18 113/52 93 Room Air LABS: Laboratory: Test 12/03/24 05:35 12/03/24 05:32 12/02/24 08:23 8/15/25 23:01 Range/Units White Blood Count 7.9 4.8-10.8 K/uL Red Blood Count 2.73 L 4.50-6.20 MIL/uL Hemoglobin 8.3 L 14.0-18.0 g/dL Hematocrit 25.0 L 42-54 % Mean Corpuscular Volume 91.6 79-99 fL Mean Corpuscular Hemoglobin 30.4 27.0-33.0 pg Mean Corpuscular Hemoglobin Concent 33.2 32.0-36.0 g/dL Red Cell Distribution Width 16.7 H 11.0-15.5 % Platelet Count 128 L 130-400 K/uL Mean Platelet Volume 9.8 7.5-10.5 fL Immature Granulocyte % (Auto) 0.3 0-1 % Neutrophils (%) (Auto) 77.6 H 40.0-77.0 % Lymphocytes (%) (Auto) 11.8 L 21.0-51.0 % Monocytes (%) (Auto) 7.1 3.0-13.0 % Eosinophils (%) (Auto) 2.8 0.0-8.0 % Basophils (%) (Auto) 0.4 0.0-5.0 % Neutrophils # (Auto) 6.1 1.8-7.7 K/uL Lymphocytes # (Auto) 0.9 L 1.0-4.8 K/uL Monocytes # (Auto) 0.6 0.1-1.0 K/uL Eosinophils # (Auto) 0.22 0.00-0.70 K/uL Basophils # (Auto) 0.03 0.00-0.20 K/uL Absolute Immature Granulocyte (auto 0.02 0-1 K/uL Nucleated Red Blood Cells 0.0 0.0-0.19 % Sodium Level 141 136-145 mmol/L Potassium Level 4.4 3.5-5.1 mmol/L Chloride Level 106 101-111 mmol/L Carbon Dioxide Level 28 21-32 mmol/L Blood Urea Nitrogen 10 7-18 mg/dL Creatinine 1.7 H 0.5-1.3 mg/dL Glomerular Filtration Rate Calc 42 >90 mL/min Random Glucose 150 H 70-105 mg/dL Total Calcium 8.1 L 8.5-10.1 mg/dL Magnesium Level 1.90 1.80-2.40 mg/dL Total Bilirubin 0.3 # 0.2-1.0 mg/dL Aspartate Amino Transf (AST/SGOT) 17 10-37 U/L Alanine Aminotransferase (ALT/SGPT) 14 12-78 U/L Alkaline Phosphatase 65 50-136 U/L Total Protein 5.5 L 6.0-8.3 g/dL Albumin 1.9 L 3.5-5.0 g/dL Whole Blood Glucose 138 H 70-110 MG/DL Prothrombin Time 10.7 9.6-11.6 SEC Prothromb Time International Ratio 1.01 0.85-1.15 Gentamicin Level Peak 3.6 #L 4.0-8.0 mcg/mL Test 12/01/24 20:00 12/01/24 16:45 Range/Units Gentamicin Level Trough 2.3 #H 0.0-2.0 mcg/mL Bedside Glucose Comment Notified Nurse Current Medications Medications (Trade) Dose Ordered Sig/Ann Marie Route PRN Reason Start Time Stop Time Status Last Admin Dose Admin Acetaminophen (TYLenol 325MG TAB) 650 mg ONCE PO 12/02/24 07:30 12/02/24 07:36 DC Acetaminophen (TYLenol 325MG TAB) 650 mg Q6H PRN PO TEMPERATURE GREATER THAN 101.5 11/17/24 22:00 12/17/24 21:59 12/02/24 21:59 650 MG Aspirin (Aspirin 81mg Ec Tab) 81 mg DAILY PO 11/18/24 09:00 11/18/24 14:00 DC 11/18/24 09:48 81 MG Aspirin (Aspirin 81mg Ec Tab) 81 mg DAILY PO 11/19/24 09:00 12/19/24 08:59 12/01/24 09:49 81 MG Atorvastatin Calcium (LIPItor 40MG) 40 mg HS PO 11/18/24 21:00 12/18/24 20:59 12/02/24 21:53 40 MG Clotrimazole (Lotrisone Cream) 1 APPL TO FACE BID TP 11/26/24 21:00 12/26/24 20:59 12/02/24 21:55 1 GM Diphenhydramine HCl (BENAdryl CAP) 25 mg ONCE PO 12/02/24 07:30 12/02/24 07:36 DC Donepezil HCl (ARIcept 5MG TAB) 5 mg HS PO 11/18/24 21:00 12/18/24 20:59 12/02/24 21:53 5 MG Doxycycline Hyclate (Doxycycline Hyclate) 100 mg Q12H PO 11/18/24 12:00 11/20/24 13:14 DC 11/19/24 22:59 100 MG Enoxaparin Sodium (Lovenox) 40 mg DAILY SQ 11/18/24 09:00 11/18/24 01:27 DC Famotidine (Pepcid 20mg Tab) 20 mg DAILY PO 11/18/24 09:00 12/18/24 08:59 12/02/24 14:35 20 MG Gabapentin (NEURontin 300 MG CAP) 300 mg BID PO 11/18/24 21:00 12/18/24 20:59 12/02/24 21:53 300 MG Gentamicin Sulfate 50 mg/ Sodium Chloride 100 ml @ 200 mls/hr Q12H9 IV 11/30/24 09:00 12/02/24 10:30 DC 12/02/24 09:00 200 MLS/HR Gentamicin Sulfate 60 mg/ Sodium Chloride 100 ml @ 200 mls/hr Q12H9 IV 11/26/24 09:00 11/30/24 06:21 DC 11/29/24 21:07 200 MLS/HR Gentamicin Sulfate 60 mg/ Sodium Chloride 100 ml @ 200 mls/hr Q24H IV 12/03/24 09:00 12/17/24 08:59 Gentamicin Sulfate 60 mg/ Sodium Chloride 100 ml @ 200 mls/hr Q8H IV 11/24/24 14:00 11/25/24 17:17 DC 11/25/24 06:00 200 MLS/HR Gentamicin Sulfate (GENTAmicin PROTOCOL) 1 each AD IV 11/24/24 13:30 12/08/24 13:29 Home Med (Home Medication) BID OP 11/18/24 21:00 12/18/24 20:59 11/30/24 19:53 1 EACH Hydralazine HCl (APRESOLine 20MG INJ) 10 mg Q6H PRN IV For:SBP above 160;DBP above 90 11/17/24 22:00 12/17/24 21:59 Insulin Human Regular (humuLIN R 100 UNIT/ML 3ML) INSULIN SLIDING SCAL... ACHS SQ 11/18/24 07:30 12/18/24 07:29 12/02/24 21:49 5 UNIT Iron Sucrose (VenoFER) 200 mg DAILY IV 11/29/24 12:00 12/01/24 12:00 DC 12/01/24 09:50 200 MG Magnesium Sulfate 50 ml @ 0 mls/hr PROTOCOL IV 12/01/24 07:00 12/31/24 06:59 12/01/24 16:27 25 MLS/HR Magnesium Sulfate 50 ml @ 0 mls/hr PROTOCOL PRN IV RX MONITORING LEVELS & DOSING 11/17/24 23:00 11/18/24 01:30 DC 11/18/24 00:22 25 MLS/HR Magnesium Sulfate 50 ml @ 0 mls/hr PROTOCOL PRN IV h 11/18/24 01:30 12/18/24 01:29 11/30/24 10:44 25 MLS/HR Morphine Sulfate (morPHINE 2MG SYG) 2 mg Q4H PRN IVP SEVERE PAIN (7-10) 11/17/24 22:00 11/23/24 00:59 DC Nitroglycerin (Nitrostat) 0.4 mg PROTOCOL PRN SL CHEST PAIN 11/17/24 22:00 12/17/24 21:59 Ondansetron HCl (zoFRAN 4MG INJ) 4 mg Q6H PRN IV NAUSEA/VOMITING 11/17/24 22:00 12/17/24 21:59 11/18/24 20:20 4 MG Pharmacy Profile Note (Lace Assessment) 1 each AD MISC 11/24/24 12:30 11/24/24 13:00 DC Pharmacy Profile Note (Lace Assessment) 1 each AD MISC 11/25/24 16:00 11/26/24 07:15 DC Pharmacy Profile Note (Pharmacy Communication) 1 each ONCE MISC 11/20/24 12:30 11/20/24 12:16 DC Piperacillin Sod/ Tazobactam Sod (Zosyn 3.375gm+NS 50ml) 3.375 gm Q8H IV 11/18/24 05:00 11/22/24 10:54 DC 11/22/24 05:35 3.375 GM Potassium Chloride 100 ml @ 100 mls/hr AD PRN IV POTASSIUM PROTOCOL 11/18/24 01:30 12/18/24 01:29 Potassium Chloride (K-Dur/Klor-Con 20meq) 20 meq AD PRN PO POTASSIUM PROTOCOL 11/18/24 01:30 12/18/24 01:29 12/01/24 09:49 20 MEQ Potassium Chloride (KCl 10% Elixir 20meq/15ml) 20 meq AD PRN PO POTASSIUM PROTOCOL 11/18/24 01:30 12/18/24 01:29 Rifampin (riFADin 300 MG CAP) 300 mg BID PO 11/20/24 21:00 11/30/24 20:59 DC 11/30/24 09:57 300 MG Sodium Chloride 1,000 ml @ 100 mls/hr Q10H IV 11/28/24 09:30 11/28/24 19:29 DC 11/28/24 10:15 100 MLS/HR Vancomycin HCl 100 ml @ 100 mls/hr BID@0600,1800 IV 11/26/24 06:00 11/26/24 07:19 DC 11/26/24 05:18 100 MLS/HR Vancomycin HCl 100 ml @ 100 mls/hr ONCE IV 11/25/24 22:30 11/25/24 23:59 DC 11/25/24 22:32 100 MLS/HR Vancomycin HCl 250 ml @ 83.333 mls/ hr Q24H IV 11/20/24 22:00 11/23/24 21:49 DC 11/22/24 21:44 83.333 MLS/HR Vancomycin HCl 250 ml @ 83.333 mls/ hr Q24H IV 11/23/24 22:00 11/24/24 12:24 DC 11/23/24 22:14 83.333 MLS/HR Vancomycin HCl 250 ml @ 125 mls/hr ONCE IV 11/25/24 16:30 11/25/24 18:30 DC 11/25/24 16:39 125 MLS/HR Vancomycin HCl 250 ml @ 125 mls/hr Q12H IV 11/26/24 18:00 11/28/24 06:20 DC 11/27/24 17:09 125 MLS/HR Vancomycin HCl 250 ml @ 125 mls/hr Q24H IV 11/29/24 06:00 12/09/24 05:59 12/03/24 06:38 125 MLS/HR Vancomycin HCl 250 ml @ 125 mls/hr Q24H IV 11/18/24 22:00 11/20/24 21:14 DC 11/19/24 21:20 125 MLS/HR Vancomycin HCl (Vancomycin Protocol) 1 each AD IV 11/17/24 21:30 11/20/24 13:14 DC Vitamin B Complex/ Vit C/Vit E/Zinc (Stresstab/Zinc) 1 tab DAILY PO 11/29/24 09:00 12/29/24 08:59 12/02/24 14:35 1 TAB DIAGNOSTICS / RADIOLOGY: [ ] ASSESSMENT: Acute blood loss requiring transfusion of one PRBC on 12/02/2024 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 Pending further recommendations of GI Occult blood pending, no BM as per RN Per GI patient is pending colonoscopy and EGD on 12/04/2024 Patient was denied from [facility] and peer to peer was performed per Infectious Disease doctor. Patient was also evaluated by studio set up worker and recommends to continue multivitamin supplements current diet with p.o. supplementation. If no BM > three days consulted bowel stimulant. And consider appetite stimulant if intake remains less than 75% for three days. l a.m. labs case liner: Pending [facility] once insurance approved Continue PT services , continue pain management. [ ] Admit: Medical-surgical floor condition: Guarded Status: Full code IVF: heplock Consultants infectious disease, profiling machine setup operator's CV Antibiotics: Vancomycin IV, rifampin 300mg BID, Gentamicin Q 12 hrs. Repeated blood culture negative for the past 24 hours Case management for LTAC accepted waiting for profiling machine setup operator and CV further workup Labs cbc, cmp, mag+ Replace electrolytes as needed as per protocol to keep potassium above 4.0 magnesium 2.0. PT services out of bed to chair as tolerated Pain management: Morphine as needed Supportive measures: DVT ppx, GI ppx all questions answered Supervising MD: This document was generated in part using voice recognition software, occasional wrong word or sound alike substitutions may have occurred due to the inherent limitations of voice recognition software. Read the chart carefully and recognize using context, where the substitutions have occurred. Although every effort was made to edit the content, ship engines operating engineer and typing errors may occur ATTESTATION BY PHYSICIAN I have seen and examined the patient. I reviewed the documentation, medical decision making, and treatment plan as noted by the mid-level provider above. I agree with the findings and plan of care. PHONG COCHRAN MD, [facility]AT[facility] B DERMATOLOGY SALES REPRESENTATIVE Dec 03, 2024 08:25
[2024-12-03] MEDS ORDERED: GENTAMICIN SULFATE IV SCH (09:00)
[2024-12-03] MEDS ORDERED: [UNRECOGNIZED DRUG - OTHER] IV SCH (09:00)
--- NOTE | 2024-12-03 09:57 | PN ---
INFECTIOUS DISEASE FOLLOWUP NOTE SUBJECTIVE: The patient is seen and examined at bedside today. The patient has had no fever, no chills. The patient is awake and alert. The patient is found with a hemoglobin of 7.0 and blood transfusion has been ordered. PHYSICAL EXAMINATION: VITAL SIGNS: Temperature 97.8. EYES: No icterus. Pupils equal and reactive. HENT: No oral thrush seen. Moist oral mucosa. NECK: Supple. No JVD or thyromegaly. LUNGS: Good air entry. No rales. No rhonchi. CARDIOVASCULAR: S1 and S2 regular. No murmur or gallop. ABDOMEN: Full. Bowel sounds present. CENTRAL NERVOUS SYSTEM: Awake, alert, oriented x 3. No focal deficits. SKIN: No rashes. No itchiness. LYMPHATIC: No peripheral lymphadenopathy. BACK: No deformity. No pressure ulcer. HEMATOLOGIC: No bleeding or petechial lesion seen. MUSCULOSKELETAL: No joint swelling, erythema, or tenderness. ASSESSMENT: A 74-year-old male with fever. CURRENT PROBLEMS: Include: * Staphylococcal epidermidis bacteremia. * Endocarditis. * Perivalvular abscess. * Anemia. * Chronic kidney disease. * Obesity. PLAN: * Continue nutritional support. * Continue GI prophylaxis. * Continue pain management. * Monitor electrolytes. * Continue antiemetic. * Continue gentamicin. * Monitor renal function. * The patient will be given blood transfusion. * Continue vancomycin. TID: [id number] RECEIPT: [id number] MTD
--- NOTE | 2024-12-03 11:14 | PN ---
INFECTIOUS DISEASE PROGRESS NOTE Date of Service: Dec 03, 2024 SUBJECTIVE: This 74 year old male patient is being seen today at bedside. Patient is status post blood transfusion with hemoglobin 8.3 as of today. Patient is awake, alert and oriented x3. no fever or chills. Patient is calm laying in bed. Gastrology recommending EGD/Colonoscopy for tomorrow. Pending blood cultures to be done. No acute events over night we continue to follow patient closely. PHYSICAL EXAM EYES: Anicteric. Pupils equal and reactive. HENT: No oral thrush seen, moist Oral mucosa, rash to certain area of face near mouth NECK: Supple, no JVD or thyromegaly. LUNGS: Good air entry. No rales, no rhonchi. CARDIOVASCULAR: S1, S2 regular. No murmur heard. ABDOMEN: Soft, non tender, bowel sounds present, no organomegaly CENTRAL NERVOUS SYSTEM: Awake, alert, oriented x 3. No focal deficits. SKIN: No rashes, no swelling. LYMPHATICS: No peripheral lymphadenopathy MUSCULOSKELETAL: No joint swelling, erythema or tenderness. EXTREMITIES: no hematoma noted to right groin, dressing in place BACK: No deformity, no pressure ulcer. GENITOURINARY: No dysuria or hematuria Vital Sign (Last 12 Hours) 12/03/24 12/03/24 12/03/24 00:00 04:00 08:00 Temp 98.4 99.3 98.2 Pulse 83 79 85 Resp 16 18 16 B/P (MAP) 130/56 113/52 130/62 Pulse Ox 94 93 98 O2 Delivery Room Air Room Air Room Air Intake & Output (last 24hrs) 12/02/24 12/02/24 12/03/24 15:00 23:00 07:00 Intake Total 800 ml Balance 800 ml LABS: Laboratory: Test 12/03/24 07:51 12/03/24 05:35 12/03/24 05:32 12/02/24 08:23 Range/Units Gentamicin Level Trough 1.5 # 0.0-2.0 mcg/mL White Blood Count 7.9 4.8-10.8 K/uL Red Blood Count 2.73 L 4.50-6.20 MIL/uL Hemoglobin 8.3 L 14.0-18.0 g/dL Hematocrit 25.0 L 42-54 % Mean Corpuscular Volume 91.6 79-99 fL Mean Corpuscular Hemoglobin 30.4 27.0-33.0 pg Mean Corpuscular Hemoglobin Concent 33.2 32.0-36.0 g/dL Red Cell Distribution Width 16.7 H 11.0-15.5 % Platelet Count 128 L 130-400 K/uL Mean Platelet Volume 9.8 7.5-10.5 fL Immature Granulocyte % (Auto) 0.3 0-1 % Neutrophils (%) (Auto) 77.6 H 40.0-77.0 % Lymphocytes (%) (Auto) 11.8 L 21.0-51.0 % Monocytes (%) (Auto) 7.1 3.0-13.0 % Eosinophils (%) (Auto) 2.8 0.0-8.0 % Basophils (%) (Auto) 0.4 0.0-5.0 % Neutrophils # (Auto) 6.1 1.8-7.7 K/uL Lymphocytes # (Auto) 0.9 L 1.0-4.8 K/uL Monocytes # (Auto) 0.6 0.1-1.0 K/uL Eosinophils # (Auto) 0.22 0.00-0.70 K/uL Basophils # (Auto) 0.03 0.00-0.20 K/uL Absolute Immature Granulocyte (auto 0.02 0-1 K/uL Nucleated Red Blood Cells 0.0 0.0-0.19 % Sodium Level 141 136-145 mmol/L Potassium Level 4.4 3.5-5.1 mmol/L Chloride Level 106 101-111 mmol/L Carbon Dioxide Level 28 21-32 mmol/L Blood Urea Nitrogen 10 7-18 mg/dL Creatinine 1.7 H 0.5-1.3 mg/dL Glomerular Filtration Rate Calc 42 >90 mL/min Random Glucose 150 H 70-105 mg/dL Total Calcium 8.1 L 8.5-10.1 mg/dL Magnesium Level 1.90 1.80-2.40 mg/dL Total Bilirubin 0.3 # 0.2-1.0 mg/dL Aspartate Amino Transf (AST/SGOT) 17 10-37 U/L Alanine Aminotransferase (ALT/SGPT) 14 12-78 U/L Alkaline Phosphatase 65 50-136 U/L Total Protein 5.5 L 6.0-8.3 g/dL Albumin 1.9 L 3.5-5.0 g/dL Whole Blood Glucose 138 H 70-110 MG/DL Prothrombin Time 10.7 9.6-11.6 SEC Prothromb Time International Ratio 1.01 0.85-1.15 Test 12/01/24 23:01 12/01/24 16:45 Range/Units Gentamicin Level Peak 3.6 #L 4.0-8.0 mcg/mL Bedside Glucose Comment Notified Nurse DIAGNOSTICS / RADIOLOGY: SPEC: [id number] MICHELLE: 11/17/24 STATUS: COMP REQ: [id number] RECD: 11/18/[address]: SIMA MATTHEWS SOURCE: BLOOD ENTR: 11/18/[address]: SAM FIGUEROA SPDESC: BLOOD NONE ORDERED: AERO ID & SENS Procedure Result Jose Alejandro Date-Time AEROBIC ID & SENSITIVITIES Final 11/21/24-0616 [facility] DESCRIPTION: DAY 1: GRAM POSITIVE COCCI IN CLUSTERS COAGULASE NEGATIVE STAPHYLOCOCCUS AEROBIC AND ANAEROBIC BOTTLES IDENTIFICATION AND SENSITIVITY TO FOLLOW STAPHYLOCOCCUS EPIDERMIDIS ROBERTO CASTELLANO M.I.CStef RX --------- ---- CLINDAMYCIN <=0.25 S ERYTHROMYCIN >4 R GENTAMICIN <=4 S VANCOMYCIN 1 S OXACILLIN AMRITA >2 R RIFAMPIN <=1 S TETRACYCLINE <=4 S TRIMETHOPRIM/SUFLAMETHOXAZOLE 2/38 S @ [facility] Test Performed at: [facility] [address], [place], [place] [employer] Specialist: Joaquim Izquierdo D.O. ASSESSMENT: * Sepsis. * Diabetes mellitus. * NSTEMI. * Thrombocytopenia. * Hypertension. * Debility. * Gram positive bacteremia * anemia status post blood transfusion PLAN: * Continue antihypertensive. * continue antidiabetic. * Continue nutritional support. * Monitor electrolytes and correct as needed. * continue vancomycin as per pharmacy protocol * Continue rifampin 300mg BID * patient will need a total of 6 weeks of antibiotics * Case management to Referral to [facility] * Follow up with blood cultures * Continue with Gentamycin IV, * continue with CV recommendations * Follow gastrology recommendations. This case has been discussed with my supervising physician Dr. Montoya. the case has been discussed and agreed upon. ALBA CHAVARRIA [facility] Dec 03, 2024 11:14
--- NOTE | 2024-12-03 14:03 | NUR ---
cm note received call from [employer] rep [place] states pt is accepted to [facility] due to they overturned the expedited appeal. will be calling CM back with accepting info once available. Updated Primary Maurice Cardenas [employer]UY[employer]TER and states will wait for EGD/Colonoscopy scheduled for tomorrow be done first then plan to transfer tomorrow. updated primary nurse.
--- NOTE | 2024-12-03 15:02 | PN ---
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 He has had positive blood cultures, however a WBC tagged study was negative. Ultimately, the plan is to continue a full course of IV antibiotics prior to considering repeat surgery in this debilitated patient. Blood cultures 11/30 are negative times three days. Blood cultures were recommended by Cardiology for on 12/01 but were not done. I ordered them yesterday and they are apparently in process. He continues to have low-grade fevers up to 99.9. WBCs is 7.9. Platelets are 128K . His H and H today are 8.3 and 25.0. Laboratory: [ ] Hematology Labs: Test 12/03/24 05:35 Range/Units White Blood Count 7.9 4.8-10.8 K/uL Red Blood Count 2.73 L 4.50-6.20 MIL/uL Hemoglobin 8.3 L 14.0-18.0 g/dL Hematocrit 25.0 L 42-54 % Mean Corpuscular Volume 91.6 79-99 fL Mean Corpuscular Hemoglobin 30.4 27.0-33.0 pg Mean Corpuscular Hemoglobin Concent 33.2 32.0-36.0 g/dL Red Cell Distribution Width 16.7 H 11.0-15.5 % Platelet Count 128 L 130-400 K/uL Mean Platelet Volume 9.8 7.5-10.5 fL Immature Granulocyte % (Auto) 0.3 0-1 % Neutrophils (%) (Auto) 77.6 H 40.0-77.0 % Lymphocytes (%) (Auto) 11.8 L 21.0-51.0 % Monocytes (%) (Auto) 7.1 3.0-13.0 % Eosinophils (%) (Auto) 2.8 0.0-8.0 % Basophils (%) (Auto) 0.4 0.0-5.0 % Neutrophils # (Auto) 6.1 1.8-7.7 K/uL Lymphocytes # (Auto) 0.9 L 1.0-4.8 K/uL Monocytes # (Auto) 0.6 0.1-1.0 K/uL Eosinophils # (Auto) 0.22 0.00-0.70 K/uL Basophils # (Auto) 0.03 0.00-0.20 K/uL Absolute Immature Granulocyte (auto 0.02 0-1 K/uL Nucleated Red Blood Cells 0.0 0.0-0.19 % Chemistry Labs: Test 12/03/24 11:48 12/03/24 05:35 Range/Units Whole Blood Glucose 189 H 70-110 MG/DL Bedside Glucose Comment Notified Nurse Sodium Level 141 136-145 mmol/L Potassium Level 4.4 3.5-5.1 mmol/L Chloride Level 106 101-111 mmol/L Carbon Dioxide Level 28 21-32 mmol/L Blood Urea Nitrogen 10 7-18 mg/dL Creatinine 1.7 H 0.5-1.3 mg/dL Glomerular Filtration Rate Calc 42 >90 mL/min Random Glucose 150 H 70-105 mg/dL Total Calcium 8.1 L 8.5-10.1 mg/dL Magnesium Level 1.90 1.80-2.40 mg/dL Total Bilirubin 0.3 # 0.2-1.0 mg/dL Aspartate Amino Transf (AST/SGOT) 17 10-37 U/L Alanine Aminotransferase (ALT/SGPT) 14 12-78 U/L Alkaline Phosphatase 65 50-136 U/L Total Protein 5.5 L 6.0-8.3 g/dL Albumin 1.9 L 3.5-5.0 g/dL Coagulation Labs: Test 12/02/24 08:23 Range/Units Prothrombin Time 10.7 9.6-11.6 SEC Prothromb Time International Ratio 1.01 0.85-1.15 Impression and Plan: 1. We will check on the status of the blood cultures and make sure they are drawn. 2. Further management per roddy Blanco and Lindsay. ANA CONROY MD Dec 03, 2024 15:02
[2024-12-03] MEDS: PEG 3350/NA SULF,BICARB,CL/KCL 4000 ML SOLN PO ONE (16:39)
--- NOTE | 2024-12-03 20:20 | NUR ---
ASSISTED FALL PATIENT ASSISTED TO SHOWER WITH ROSITA ALLEN AT 1927. PATIENT SHOWERED WITH ASSISTANCE, NO STAFF ASSISTANCE AT THE TIME OF FALL. PATIENT LOWERED TO GROUND WITH PRESENT. PATIENT'S , AT BEDSIDE, CLAIMED THE PATIENT WAS LOWERED WITH AN ASSISTED FALL. UNWITNESSED BY STAFF. PATIENT ASSISTED BACK TO ROLLING WALKER WITH CARA BECKER, AND CURRENT DOCUMENTER. PATIENT CLAIMED NO INJURY. PHYSICAL ASSESSMENT PERFORMED, NO OBVIOUS BROKEN SKIN, BRUISES, OR SWELLING NOTED POST FALL. VITAL SIGNS TAKEN, SEE EMAR. PATIENT IS NOT COMPLAINING OF PAIN AT THIS TIME. NOTIFIED ANISH OLIVAREZ, CHARGE NURSE SAMUEL, RELATIONSHIP MGR, CHARGE NURSE SUMMER.
[2024-12-03] MEDS: GENTAMICIN SULFATE IV SCH (21:06)
[2024-12-03] MEDS: [UNRECOGNIZED DRUG - OTHER] IV SCH (21:06)
[2024-12-04] VITALS (32 sets, daily range): BP systolic 90–160; BP diastolic 50–76; PULSE 81–92; RESP 12–18; TEMP 97–99.2; O2SAT 96–97
[2024-12-04 05:36] LABS: IMMATURE GRANULOCYTE ABSOLUTE 0.04 K/uL (0-1); NUCLEATED RED BLOOD CELLS 0.0 % (0.0-0.19); PLATELET COUNT (AUTO) 135 K/uL (130-400); RED BLOOD CELL COUNT(AUTO) 2.96 MIL/uL (4.50-6.20); RED CELL DISTRIBUTION WIDTH 16.6 % (11.0-15.5); WHITE BLOOD COUNT (AUTO) 8.7 K/uL (4.8-10.8)
[2024-12-04 05:58] LABS: ASPARTATE AMINOTRANSFERASE 20.0 U/L (10-37); CREATININE 1.5 mg/dL (0.5-1.3); GLOMERULAR FILTR. RATE CALC 49.0 mL/min (>90); GLUCOSE,RANDOM 150.0 mg/dL (70-105); SODIUM SERUM 141.0 mmol/L (136-145); TOTAL PROTEIN, SERUM 5.7 g/dL (6.0-8.3); UREA NITROGEN, BLOOD 10.0 mg/dL (7-18); VANCOMYCIN TROUGH 15.9 UG/ML (10.0-20.0)
[2024-12-04] MEDS ORDERED: MAGNESIUM 2GM PREMIX 50ML 50 ML IV SCH (07:00)
--- NOTE | 2024-12-04 08:27 | PN ---
[facility] CARDIOLOGY PROGRESS NOTE Date Patient Seen: Dec 04, 2024 Time of Visit: 08:19 Interval History: This is a 74-year-old Latin-Norwegian male with a past medical history of severe aortic stenosis status post minimally invasive aortic valve replacement with an extra-large Cristhian Jc bioprosthetic aortic valve 09/04/2016, essentially normal coronary arteries by prior cardiac catheterization 08/19/2016 with nonobstructive coronary artery disease by follow-up cardiac catheterization 11/28/2024 (30% and 30% tandem mid LAD stenoses, 50% diagonal one at 50% diagonal two stenoses, 30% proximal and mid left circumflex stenoses, and 30% proximal and mid RCA stenoses), hyperlipidemia, hypertension, type 2 diabetes mellitus was admitted for management of recurrent sepsis. He presented with generalized body weakness, fever and diarrhea onset 48 hours prior to admission. He had been managed at [facility] recently for bacteremia and was discharge 10/30/2024, his reporting that he had recurrent fevers beginning one week after discharge from [facility] (he was admitted here 10/05/2024 through 10/15/2024 with bacteremia and a MYKE on 10/09/2024 demonstrated no evidence of valvular vegetation). On admission he did have a temperature of 101. The patient did have evidence of elevated troponin with admission troponin of 350, rising to 3303 on 11/18/2024 and trending down. He underwent a 2D echocardiogram on 11/18/2024 demonstrated normal LVEF of 55- 60%, mild concentric LVH and stage I diastolic dysfunction. The bioprosthetic aortic valve was noted with peak aortic valve gradient of 41 mmHg, mean aortic valve gradient of 23 mmHg and dimensionless index of 1.42 and a small perivalvular leak. Blood cultures from 11/17/2024 and 11/19/2024 have grown Staphylococcus epidermidis (same organism from blood cultures done on prior admission 10/05/2024). Blood cultures from 11/21/2024 and 11/22/2024 have demonstrated no growth. Repeat blood cultures on 11/30/2024 and 12/02/2024 are no growth. Previously a transesophageal echo 10/09/2024 demonstrated no evidence of valvular vegetation. A chest CT angiogram 11/22/2024 demonstrated no definitive evidence of rodrigo-aortic valvular abscess. He underwent a repeat MYKE on 11/20/2024 demonstrating a 0.4 x 0.8 cm linear mobile vegetation on the anterior mitral valve leaflet, consistent with SBE. Prosthetic aortic valve demonstrated thickened leaflets, but no evidence of perforation, deterioration, or mobile/oscillating vegetation. There was trace central-valvular aortic insufficiency only. 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 The patient also underwent a gallium scan on 11/24/2024 demonstrating a normal scan with no increased uptake in the periaortic region. The case has been discussed with Dr. Dorothy Alexis in the plan is to attempt a completed course of antibiotics to attempt sterilization medically prior to attempting surgery in this frail debilitated gentleman with dementia. Physical Examination: GENERAL: No acute distress. HEAD: Normal with no signs of head trauma. EYES: PERRLA, EOMI, conjunctiva and sclera normal. NECK: Supple without JVD. There is no tenderness, lymphadenopathy, or masses. No thyromegaly. Normal carotid upstrokes without bruits. LUNGS: Clear breath sounds bilaterally. No wheezes, or rhonchi. HEART: Normal rate and rhythm. Normal S1 and S2 there is a 2/6 mid peaking systolic ejection murmur louder at the left midsternal border. There is no diastolic murmur audible. There is no MR murmur audible. VASC: Peripheral pulses +2 bilaterally. Right groin cath site is soft and free of hematoma EXT: No clubbing, cyanosis or edema. NEURO: Awake, alert, and oriented x3. No focal neurological deficits noted. Laboratory: Hematology Labs: Test 12/04/24 05:20 Range/Units White Blood Count 8.7 4.8-10.8 K/uL Red Blood Count 2.96 L 4.50-6.20 MIL/uL Hemoglobin 9.0 L 14.0-18.0 g/dL Hematocrit 26.9 L 42-54 % Mean Corpuscular Volume 90.9 79-99 fL Mean Corpuscular Hemoglobin 30.4 27.0-33.0 pg Mean Corpuscular Hemoglobin Concent 33.5 32.0-36.0 g/dL Red Cell Distribution Width 16.6 H 11.0-15.5 % Platelet Count 135 130-400 K/uL Mean Platelet Volume 9.9 7.5-10.5 fL Immature Granulocyte % (Auto) 0.5 0-1 % Neutrophils (%) (Auto) 72.1 40.0-77.0 % Lymphocytes (%) (Auto) 15.4 L 21.0-51.0 % Monocytes (%) (Auto) 9.0 3.0-13.0 % Eosinophils (%) (Auto) 2.5 0.0-8.0 % Basophils (%) (Auto) 0.5 0.0-5.0 % Neutrophils # (Auto) 6.2 1.8-7.7 K/uL Lymphocytes # (Auto) 1.3 1.0-4.8 K/uL Monocytes # (Auto) 0.8 0.1-1.0 K/uL Eosinophils # (Auto) 0.22 0.00-0.70 K/uL Basophils # (Auto) 0.04 0.00-0.20 K/uL Absolute Immature Granulocyte (auto 0.04 0-1 K/uL Nucleated Red Blood Cells 0.0 0.0-0.19 % Chemistry Labs: Test 12/04/24 05:33 12/04/24 05:20 12/03/24 16:17 Range/Units Whole Blood Glucose 144 H 70-110 MG/DL Sodium Level 141 136-145 mmol/L Potassium Level 4.6 3.5-5.1 mmol/L Chloride Level 104 101-111 mmol/L Carbon Dioxide Level 30 21-32 mmol/L Blood Urea Nitrogen 10 7-18 mg/dL Creatinine 1.5 H 0.5-1.3 mg/dL Glomerular Filtration Rate Calc 49 >90 mL/min Random Glucose 150 H 70-105 mg/dL Total Calcium 8.2 L 8.5-10.1 mg/dL Magnesium Level 1.70 L 1.80-2.40 mg/dL Total Bilirubin 0.3 0.2-1.0 mg/dL Aspartate Amino Transf (AST/SGOT) 20 10-37 U/L Alanine Aminotransferase (ALT/SGPT) 16 12-78 U/L Alkaline Phosphatase 67 50-136 U/L Total Protein 5.7 L 6.0-8.3 g/dL Albumin 2.0 L 3.5-5.0 g/dL Bedside Glucose Comment Notified Nurse Coagulation Labs: Test 12/02/24 08:23 Range/Units Prothrombin Time 10.7 9.6-11.6 SEC Prothromb Time International Ratio 1.01 0.85-1.15 Diagnostics / Radiology: 2D echocardiogram 11/18/2024: Conclusion LVEF is 55-60% with normal wall motion (volume measurements made by golf technician are inaccurate). Stage I diastolic dysfunction with elevated mean LV filling pressure. The left atrium size is mildly dilated. Bioprosthetic aortic valve is present, probably a TAVR. Peak/Mean gradient 41/23 mmHg. Small perivalvular leak. Mitral regurgitation is mild. MYKE 11/20/2024: There was a 0.4 x 0.8 cm linear mobile vegetation on the anterior mitral valve leaflet, consistent with SBE. Prosthetic aortic valve demonstrates thickened leaflets, but no evidence of perforation, deterioration, or mobile or oscillating vegetation. There was trace central-valvular aortic insufficiency only. Repeat review of the MYKE suggests a perivalvular aortic abscess, extending down the aorta mitral curtain to the anterior mitral leaflet with a mitral leaflet vegetation. 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 Repeat blood cultures from 11/21/2024, 11/22/2024, 11/30/2024, and 12/02/2024 have demonstrated no growth -CT of thoracic spine and lumbar spine demonstrated no apparent infectious process. There is fixation hardware in the lumbar spine -Dr. Alexis has elected to proceed with a repeat course of antibiotics with operation only for failure of antibiotic therapy Type [address] segment elevation [place], in the setting of sepsis, with troponin rising to 3303: Nonobstructive coronary artery disease (30% and 30% tandem mid LAD stenoses, 50% diagonal one at 50% diagonal two stenoses, 30% proximal and mid left circumflex stenoses, and 30% proximal and mid RCA stenoses) by cardiac catheterization 11/28/2024: Normal LVEF with an LVEF of 55-60% and normal wall motion on 2D echocardiogram 11/18/2024: -continue antiplatelet therapy and statin therapy Severe aortic stenosis status post minimally invasive aortic valve replacement with an extra-large Cristhian Jc bioprosthetic aortic valve 09/04/2016: -normal functioning bioprosthetic aortic valve by 2D echocardiogram 11/18/2024, and by transesophageal echo 11/20/2024, with evidence of perivalvular aortic abscess -Dr. Alexis has elected to proceed with a repeat course of antibiotics with operation only for failure of antibiotic therapy Normocytic normochromic anemia, iron-deficiency: -begin folate and thiamine supplementation and multiple vitamin -B12 and folate levels were within normal limit and he has been initiated on iron supplementation -EGD and colonoscopy planned for today Comorbidities: C-spine myelomalacia Dementia MYKE 10/09/2024 demonstrated an LVEF of 45-50% and no valvular vegetations Hypertension Hyperlipidemia Type 2 diabetes mellitus JACOB FOLEY MD Dec 04, 2024 08:27
--- NOTE | 2024-12-04 11:13 | DS ---
Discharge Summary Hospital Course Summary: DATE OF ADMISSION:[11/17/2024] DATE OF DISCHARGE:[12/04/2024] DISPOSITION:[[facility]] CONDITION:[Medically cleared] CONSULTANTS:[GI, ID, die drawing checker, cardiovascular surgeon] FOLLOW UP APPOINTMENTS:[PCP2 to 3 days. GI within two weeks. Production Control Clerk within two weeks. Cardiovascular surgeon after complication of IV antibiotics as recommended by ID.] PROCEDURES:[11/20/2024 MYKE. 11/28/2024 cardiac catheterization.] IMAGING: report attached to summary MICROBIOLOGY: report attached to summary ACTIVITY:[One-person assist] HOME MEDICATIONS: see [facility] NEW MEDICATIONS:[All the medication from the hospital where continue for the continuous churn [facility] at [facility] including the IV antibiotics as recommended by ID] EMERGENCY INSTRUCTIONS: The patient was instructed to present to the nearest Emergency departmentr or call 911 once their symptoms will return or worsen Heating Fixture Tender(s): Patient is74 years old male who came to emergency department with a complaint of bilateral lower extremity weakness and tiredness. On admission patient was diagnosed with sepsis placed on vancomycin and Zosyn at [facility] as per ID. Patient was evaluated by the die drawing checker and MYKE was performed on 11/20/2024. CT angiogram was performed and showed no defined evidence of periaortic valvular abscess. As per Dr. 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 Cardiovascular surgeon was consulted. Patient was placed on vancomycin, rifampin and gentamicin as per ID. Patient underwent left heart catheterization on 11/28/24 and patient was recommended to be discharged to [facility]. After evaluation of the cardiovascular surgeon, it was recommended to complete IV antibiotic treatment for positive blood culture Streptococcus epidermidis and then proceed with replacement of bioprosthesis with a new one. Patient was also evaluated by luggage liner and recommends to continue multivitamin supplements current diet with p.o. supplementation. If no BM > three days consulted bowel stimulant. And consider appetite stimulant if intake remains less than 75% for three days. In the meantime patient was also found to drop in hemoglobin of 7.0 and1 PRBC was given on 12/02/2024 as well as GI was consulted. hemoglobin went up to 8.3 S/p transfusion. Patient was also diagnosed with iron-deficiency anemia and was placed on iron pills. Hemoglobin and hematocrit has been stable since then. Today patient will undergo EGD and colonoscopy 12/04/2024. Once cleared by the GI patient is cleared to be discharged to [facility] for IV antibiotic treatment. Patient was advised to follow up with PCP in2 to 3 days. GI within two weeks. Production Control Clerk within two weeks. And cardiovascular surgeon once IV antibiotics completed. Procedure(s): REVIEW OF SYSTEMS CONSTITUTIONAL: Denies fevers, chills, or night sweats. No unintentional weight loss reported. NEUROLOGICAL: Denies headache, amaurosis fugax, motor weakness, sensory deficit, vertigo/spinning sensation, gait abnormalities, or tremors. ENT: No hearing loss, otalgia, otorrhea, rhinitis, rhinorrhea, hoarseness, or sore throat. CARDIOVASCULAR: Denies any exertional angina, dyspnea on exertion, orthopnea, paroxysmal nocturnal dyspnea, palpitations, life-threatening arrhythmias, claudication. PULMONARY: Denies any shortness of breath, cough, phlegm/sputum, hemoptysis, pleuritic chest pain. SLEEP: Denies morning headaches, daytime somnolence or napping. Denies diffi culty falling asleep, staying asleep, waking from sleep. Denies knowledge of snoring. GASTROINTESTINAL: Denies any type of dysphagia to either liquids or solids. Denies nausea, vomiting, pyrosis, early satiety, abdominal pain, diarrhea, constipation, or changes in stool consistency or caliber. Denies coffee-ground emesis, hematemesis, hematochezia, or melanotic stools. GENITOURINARY: Denies frequency, urgency, nocturia, hematuria or incontinence (Storage/Irritative symptoms.) Low urinary stream, straining to void, urinary intermittency or hesitancy, splitting of the voiding stream, terminal dribbling. ENDOCRINOLOGIC: Denies polyuria, polydipsia, polyphagia or heat/cold int olerances. HEMATOLOGIC: Denies thrombophilia/previous clots, or coagulopathy/bleeding disorders. ONCOLOGIC: Denies personal history of malignancy. DERMATOLOGIC: Denies rashes or pruritus. PSYCHIATRIC: Denies any suicidal or homicidal ideation. Denies hallucinations. PHYSICAL EXAM GENERAL APPEARANCE: The patient is awake, alert, and oriented, in no acute cardiopulmonary distress. NEUROLOGICAL: Cranial nerves II-XII grossly intact. Motor is 5/5 in bilateral upper and lower extremities proximal to distal. No sensory deficits. HEENT: Face is symmetric. Pupils are equal and reactive. Extraocular movements are intact. NECK: Supple. No JVD. No thyromegaly. No submental, submandibular, pre- /postauricular, occipital or supraclavicular lymphadenopathy. CHEST: Normal chest expansion. No Telemetry. LUNGS: Absence of any rales, rhonchi or any wheezing. CARDIOVASCULAR: Regular. S1 and S2 normal. No appreciable rubs, murmurs or gallops. ABDOMEN: Soft, nontender, and nondistended. There is no rebound, voluntary guarding, or rigidity. : Deferred. No Emmanuel. EXTREMITIES: Non-edematous and not cyanotic. No clubbing. Good capillary refill. SKIN: No skin breakdown. 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 POA Dementia Hyperlipidemia CAD Hypertension] Home Medications: Reported Medications Sulfamethoxazole/Trimethoprim (Bactrim Ds Tablet) 800 Mg-160 Mg Tablet, 1 TAB PO BID, TAB 11/18/24 Metformin HCl (Metformin HCl) 1,000 Mg Tablet, 1000 MG PO BIDMEALS, TAB 11/18/24 Brimonidine Tartrate/Timolol (Brimonidine-Timolol 0.2%-0.5%) 0.2 %-0.5 % Drops, 1 DROP OP BID for 30 Days, #5 ML 0 Refills 10/13/24 Aspirin (Aspirin EC) 81 Mg Tablet.dr, 81 MG PO DAILY, TAB 09/22/24 Atorvastatin Calcium (LIPITOR) 40 Mg Tablet, 40 MG PO HS for CHOLESTEROL, TAB 09/22/24 Gabapentin (Neurontin) 300 Mg Capsule, 300 MG PO BID for NEUROPATHY, CAP 09/22/24 Donepezil HCl (Donepezil HCl) 5 Mg Tablet, 5 MG PO HS for DEMENTIA, TAB 09/22/24 Time spent arranging discharge: 31-60 minutes ATTESTATION BY PHYSICIAN I have seen and examined the patient. I reviewed the documentation, medical decision making, and treatment plan as noted by the mid-level provider above. I agree with the findings and plan of care. PHONG PORRAS MD, KATARZYNA B PORTER BAGGAGE Dec 04, 2024 11:13
--- NOTE | 2024-12-04 11:55 | NUR ---
PATIENT OFF UNIT PATIENT OFF UNIT FOR EGD PROCEDURE.
[2024-12-04] MEDS ORDERED: LIDOCAINE PF 100MG/5ML (2%) SYRINGE 5ML ONE (12:07)
--- NOTE | 2024-12-04 13:00 | NUR ---
UNIT ARRIVAL RECEIVED PATIENT FROM PACU NURSE YEISON. PATIENT AWAKE AND ALERT. VITAL SIGNS STABLE. PATIENT REPORTS NO PAIN AT THIS TIME. RE-PREP PATIENT FOR COLONOSCOPY 12/05. PATIENT WILL CONTINUE ON CLEAR LIQUID DIET TODAY. OBTAIN CONSENT FOR COLO 12/05.
--- NOTE | 2024-12-04 13:01 | PN ---
GASTROENTEROLOGY PROGRESS NOTE Date of Visit: Dec 04, 2024 Time of Visit: 13:00 Events / Notes: [This is a 74-year-old male patient brought in by EMS with complaints of generalized weakness, fever, and diarrhea and was found on the floor per ER report. Patient was found to be septic and had elevated troponin levels. He has been treated with antibiotics. His initial hemoglobin was 9.5 and has since trended down to seven this is the reason for consult for GI bleed. Patient received 1 unit of PRBCs and hemoglobin is holding at 9. Chemistry today significant for creatinine of 1.5, calcium 8.2, magnesium 1.7, LFTs are normal, total protein 5.7, albumin 2.0. 12/04/24: Patient underwent an EGD with the following findings: Normal Esophagus, Erythematous mucosa in stomach. Normal duodenum and second portion of the duodenum. Attempt to do colonoscopy today unsuccessful d/t large amounts of stool present. Recommendations to prep and repeat colonoscopy in am. Patient examined at bedside resting comfortably in no acute distress. He denies having any discomforts. VSS. BBS clear. Abdomen is soft. He agreed to continue with prep and colonoscopy for tomorrow. Spouse at bedside supportive. ] Review of Systems: 10 Point ROS per HPI Physical Exam: GEN: Awake, alert, oriented in person, time and place, and in no acute distress. HEENT: . No rhinorrhea. Oral pharyngeal mucosa is pink, moist CHEST: Inspection, and palpation of the chest were unremarkable. Lung auscultation revealed normal breath sounds bilaterally. CARDIAC:Heart sounds are regular. ABD: Soft, non-tender and not distended. No peritoneal signs on palpation. No organomegaly. Normal bowel sounds. EXT: No cyanosis or clubbing. No edema. SKIN: Intact. No rashes. JOINTS: No evidence of synovitis or acute arthritis. NEURO: Alert and oriented to name, place and person. No focal motor deficits. Normal speech. Vital Signs (last 8hr) Date Time Temp Pulse Resp B/P (MAP) Pulse Ox O2 Delivery O2 Flow Rate FiO2 12/04/24 12:50 82 12 126/56 94 Room Air 12/04/24 12:45 97.9 83 13 111/56 95 Room Air 12/04/24 12:40 85 14 100/52 96 Room Air 12/04/24 12:35 84 13 106/54 95 Room Air 12/04/24 12:30 81 14 109/55 98 Nasal Cannula 2.0 12/04/24 12:25 82 15 105/54 97 Nasal Cannula 3.0 12/04/24 12:20 84 15 96/52 98 Nasal Cannula 3.0 12/04/24 12:15 97.0 83 14 90/50 99 Nasal Cannula 3.0 12/04/24 12:00 Mask 10.0 12/04/24 12:00 86 16 128/56 96 mask 12/04/24 12:00 Mask 12/04/24 11:47 99.1 87 18 135/64 96 Room Air 12/04/24 09:44 96 Room Air* 0 21 12/04/24 08:00 98.2 89 18 142/66 96 Room Air Laboratory: [ ] Laboratory: Test 12/04/24 12:38 12/04/24 05:20 12/03/24 22:22 12/03/24 20:40 Range/Units Whole Blood Glucose 137 H 70-110 MG/DL White Blood Count 8.7 4.8-10.8 K/uL Red Blood Count 2.96 L 4.50-6.20 MIL/uL Hemoglobin 9.0 L 14.0-18.0 g/dL Hematocrit 26.9 L 42-54 % Mean Corpuscular Volume 90.9 79-99 fL Mean Corpuscular Hemoglobin 30.4 27.0-33.0 pg Mean Corpuscular Hemoglobin Concent 33.5 32.0-36.0 g/dL Red Cell Distribution Width 16.6 H 11.0-15.5 % Platelet Count 135 130-400 K/uL Mean Platelet Volume 9.9 7.5-10.5 fL Immature Granulocyte % (Auto) 0.5 0-1 % Neutrophils (%) (Auto) 72.1 40.0-77.0 % Lymphocytes (%) (Auto) 15.4 L 21.0-51.0 % Monocytes (%) (Auto) 9.0 3.0-13.0 % Eosinophils (%) (Auto) 2.5 0.0-8.0 % Basophils (%) (Auto) 0.5 0.0-5.0 % Neutrophils # (Auto) 6.2 1.8-7.7 K/uL Lymphocytes # (Auto) 1.3 1.0-4.8 K/uL Monocytes # (Auto) 0.8 0.1-1.0 K/uL Eosinophils # (Auto) 0.22 0.00-0.70 K/uL Basophils # (Auto) 0.04 0.00-0.20 K/uL Absolute Immature Granulocyte (auto 0.04 0-1 K/uL Nucleated Red Blood Cells 0.0 0.0-0.19 % Sodium Level 141 136-145 mmol/L Potassium Level 4.6 3.5-5.1 mmol/L Chloride Level 104 101-111 mmol/L Carbon Dioxide Level 30 21-32 mmol/L Blood Urea Nitrogen 10 7-18 mg/dL Creatinine 1.5 H 0.5-1.3 mg/dL Glomerular Filtration Rate Calc 49 >90 mL/min Random Glucose 150 H 70-105 mg/dL Total Calcium 8.2 L 8.5-10.1 mg/dL Magnesium Level 1.70 L 1.80-2.40 mg/dL Total Bilirubin 0.3 0.2-1.0 mg/dL Aspartate Amino Transf (AST/SGOT) 20 10-37 U/L Alanine Aminotransferase (ALT/SGPT) 16 12-78 U/L Alkaline Phosphatase 67 50-136 U/L Total Protein 5.7 L 6.0-8.3 g/dL Albumin 2.0 L 3.5-5.0 g/dL Vancomycin Level Trough 15.9 10.0-20.0 UG/ML Gentamicin Level Peak 2.6 #L 4.0-8.0 mcg/mL Gentamicin Level Trough 0.7 # 0.0-2.0 mcg/mL Test 12/03/24 16:17 Range/Units Bedside Glucose Comment Notified Nurse Current Medications Medications (Trade) Dose Ordered Sig/Ann Marie Route PRN Reason Start Time Stop Time Status Last Admin Dose Admin Acetaminophen (TYLenol 325MG TAB) 650 mg ONCE PO 12/02/24 07:30 12/02/24 07:36 DC Acetaminophen (TYLenol 325MG TAB) 650 mg Q6H PRN PO TEMPERATURE GREATER THAN 101.5 11/17/24 22:00 12/17/24 21:59 12/02/24 21:59 650 MG Aspirin (Aspirin 81mg Ec Tab) 81 mg DAILY PO 11/18/24 09:00 11/18/24 14:00 DC 11/18/24 09:48 81 MG Aspirin (Aspirin 81mg Ec Tab) 81 mg DAILY PO 11/19/24 09:00 12/19/24 08:59 12/03/24 10:00 81 MG Atorvastatin Calcium (LIPItor 40MG) 40 mg HS PO 11/18/24 21:00 12/18/24 20:59 12/03/24 21:04 40 MG Clotrimazole (Lotrisone Cream) 1 APPL TO FACE BID TP 11/26/24 21:00 12/26/24 20:59 12/03/24 21:05 1 GM Diphenhydramine HCl (BENAdryl CAP) 25 mg ONCE PO 12/02/24 07:30 12/02/24 07:36 DC Donepezil HCl (ARIcept 5MG TAB) 5 mg HS PO 11/18/24 21:00 12/18/24 20:59 12/03/24 20:54 5 MG Doxycycline Hyclate (Doxycycline Hyclate) 100 mg Q12H PO 11/18/24 12:00 11/20/24 13:14 DC 11/19/24 22:59 100 MG Enoxaparin Sodium (Lovenox) 40 mg DAILY SQ 11/18/24 09:00 11/18/24 01:27 DC Famotidine (Pepcid 20mg Tab) 20 mg DAILY PO 11/18/24 09:00 12/18/24 08:59 12/03/24 10:00 20 MG Gabapentin (NEURontin 300 MG CAP) 300 mg BID PO 11/18/24 21:00 12/18/24 20:59 12/03/24 21:05 300 MG Gentamicin Sulfate 50 mg/ Sodium Chloride 100 ml @ 200 mls/hr Q12H9 IV 11/30/24 09:00 12/02/24 10:30 DC 12/02/24 09:00 200 MLS/HR Gentamicin Sulfate 60 mg/ Sodium Chloride 100 ml @ 200 mls/hr Q12H9 IV 11/26/24 09:00 11/30/24 06:21 DC 11/29/24 21:07 200 MLS/HR Gentamicin Sulfate 60 mg/ Sodium Chloride 100 ml @ 200 mls/hr Q24H IV 12/03/24 09:00 12/03/24 09:40 DC Gentamicin Sulfate 60 mg/ Sodium Chloride 100 ml @ 200 mls/hr Q36H IV 12/03/24 21:00 12/17/24 20:59 12/03/24 21:12 200 MLS/HR Gentamicin Sulfate 60 mg/ Sodium Chloride 100 ml @ 200 mls/hr Q8H IV 11/24/24 14:00 11/25/24 17:17 DC 11/25/24 06:00 200 MLS/HR Gentamicin Sulfate (GENTAmicin PROTOCOL) 1 each AD IV 11/24/24 13:30 12/08/24 13:29 Home Med (Home Medication) BID OP 11/18/24 21:00 12/18/24 20:59 11/30/24 19:53 1 EACH Hydralazine HCl (APRESOLine 20MG INJ) 10 mg Q6H PRN IV For:SBP above 160;DBP above 90 11/17/24 22:00 12/17/24 21:59 Insulin Human Regular (humuLIN R 100 UNIT/ML 3ML) INSULIN SLIDING SCAL... ACHS SQ 11/18/24 07:30 12/18/24 07:29 12/03/24 16:43 2 UNIT Iron Sucrose (VenoFER) 200 mg DAILY IV 11/29/24 12:00 12/01/24 12:00 DC 12/01/24 09:50 200 MG Magnesium Sulfate 50 ml @ 0 mls/hr PROTOCOL IV 12/01/24 07:00 12/04/24 06:40 DC 12/01/24 16:27 25 MLS/HR Magnesium Sulfate 50 ml @ 0 mls/hr PROTOCOL IV 12/04/24 07:00 01/03/25 06:59 Magnesium Sulfate 50 ml @ 0 mls/hr PROTOCOL PRN IV RX MONITORING LEVELS & DOSING 11/17/24 23:00 11/18/24 01:30 DC 11/18/24 00:22 25 MLS/HR Magnesium Sulfate 50 ml @ 0 mls/hr PROTOCOL PRN IV h 11/18/24 01:30 12/18/24 01:29 11/30/24 10:44 25 MLS/HR Morphine Sulfate (morPHINE 2MG SYG) 2 mg Q4H PRN IVP SEVERE PAIN (7-10) 11/17/24 22:00 11/23/24 00:59 DC Nitroglycerin (Nitrostat) 0.4 mg PROTOCOL PRN SL CHEST PAIN 11/17/24 22:00 12/17/24 21:59 Ondansetron HCl (zoFRAN 4MG INJ) 4 mg Q6H PRN IV NAUSEA/VOMITING 11/17/24 22:00 12/17/24 21:59 11/18/24 20:20 4 MG Pharmacy Profile Note (Lace Assessment) 1 each AD MISC 11/24/24 12:30 11/24/24 13:00 DC Pharmacy Profile Note (Lace Assessment) 1 each AD MISC 11/25/24 16:00 11/26/24 07:15 DC Pharmacy Profile Note (Pharmacy Communication) 1 each ONCE MISC 11/20/24 12:30 11/20/24 12:16 DC Piperacillin Sod/ Tazobactam Sod (Zosyn 3.375gm+NS 50ml) 3.375 gm Q8H IV 11/18/24 05:00 11/22/24 10:54 DC 11/22/24 05:35 3.375 GM Potassium Chloride 100 ml @ 100 mls/hr AD PRN IV POTASSIUM PROTOCOL 11/18/24 01:30 12/18/24 01:29 Potassium Chloride (K-Dur/Klor-Con 20meq) 20 meq AD PRN PO POTASSIUM PROTOCOL 11/18/24 01:30 12/18/24 01:29 12/01/24 09:49 20 MEQ Potassium Chloride (KCl 10% Elixir 20meq/15ml) 20 meq AD PRN PO POTASSIUM PROTOCOL 11/18/24 01:30 12/18/24 01:29 Rifampin (riFADin 300 MG CAP) 300 mg BID PO 12/03/24 11:00 12/17/24 10:59 12/03/24 21:04 300 MG Rifampin (riFADin 300 MG CAP) 300 mg BID PO 11/20/24 21:00 11/30/24 20:59 DC 11/30/24 09:57 300 MG Sodium Chloride 1,000 ml @ 100 mls/hr Q10H IV 11/28/24 09:30 11/28/24 19:29 DC 11/28/24 10:15 100 MLS/HR Vancomycin HCl 100 ml @ 100 mls/hr BID@0600,1800 IV 11/26/24 06:00 11/26/24 07:19 DC 11/26/24 05:18 100 MLS/HR Vancomycin HCl 100 ml @ 100 mls/hr ONCE IV 11/25/24 22:30 11/25/24 23:59 DC 11/25/24 22:32 100 MLS/HR Vancomycin HCl 250 ml @ 83.333 mls/ hr Q24H IV 11/20/24 22:00 11/23/24 21:49 DC 11/22/24 21:44 83.333 MLS/HR Vancomycin HCl 250 ml @ 83.333 mls/ hr Q24H IV 11/23/24 22:00 11/24/24 12:24 DC 11/23/24 22:14 83.333 MLS/HR Vancomycin HCl 250 ml @ 125 mls/hr ONCE IV 11/25/24 16:30 11/25/24 18:30 DC 11/25/24 16:39 125 MLS/HR Vancomycin HCl 250 ml @ 125 mls/hr Q12H IV 11/26/24 18:00 11/28/24 06:20 DC 11/27/24 17:09 125 MLS/HR Vancomycin HCl 250 ml @ 125 mls/hr Q24H IV 11/29/24 06:00 12/09/24 05:59 12/04/24 06:12 125 MLS/HR Vancomycin HCl 250 ml @ 125 mls/hr Q24H IV 11/18/24 22:00 11/20/24 21:14 DC 11/19/24 21:20 125 MLS/HR Vancomycin HCl (Vancomycin Protocol) 1 each AD IV 11/17/24 21:30 11/20/24 13:14 DC Vitamin B Complex/ Vit C/Vit E/Zinc (Stresstab/Zinc) 1 tab DAILY PO 11/29/24 09:00 12/29/24 08:59 12/03/24 10:00 1 TAB Assessment: [Concern for GI bleed Iron deficiency Anemia Diabetes Type 2 Dementia CAD] Plan: [ clear liquid diet today NPO after midnight Plan for colonoscopy in am Please call with questions, concerns, and change in clinical status. Thank you for this consult. ] EMIGDIO STERLING TEMPORARY DATA ENTRY CLERK Dec 04, 2024 13:01
--- NOTE | 2024-12-04 13:56 | HMCSR ---
APPROVED REPORT EXAM: Two-dimensional and M-mode echocardiogram with Doppler and color Doppler. INDICATION ICD: Endocarditis with perivalvular abscess around aortic Cristhian Jc biopros Aortic Valve Cristhian Jc Bioprosthetic aortic valve is present. Moderate aortic regurgitation. Aortic valve jj ear abscess is present measuring approximately 0.8cm. There is no aortic valvular stenosis. Mitral Valve There is echogenic mass on the posterior mitral leaflet suggestive of vegetation measuring approx. 0. 7cm. Conclusion Limited exam. Moderate aortic regurgitation. There is no aortic valvular stenosis. Cristhian Jc Bioprosthetic aortic valve is present. Aortic valve linear abscess is present measuring approximately 0.8cm. There is echogenic mass on the posterior mitral leaflet suggestive of vegetation measuring approx. 0. 7cm.
--- NOTE | 2024-12-04 15:45 | NUR ---
NURSING OBSERVATION PATIENT OFF UNIT FOR PROCEDURE UNABLE TO ASSESS. Addendum: 12/04/24 at 1546 by FABIOLA BAILON RN RN Amended: Links added.
[2024-12-04] MEDS: PEG 3350/NA SULF,BICARB,CL/KCL 4000 ML SOLN PO ONE (16:51)
--- NOTE | 2024-12-04 17:44 | NUR ---
CM NOTE/SOLARA CM spoke to Velma with [facility]. States patient is accepted. CM explained that colonoscopy is to be reattempted tomorrow due to poor prep. D/C planning moved to tomorrow pending the colonoscopy results. CM to arrange EMS.
--- NOTE | 2024-12-04 23:09 | PN ---
INFECTIOUS DISEASE PROGRESS NOTE Date of Service: Dec 04, 2024 SUBJECTIVE: This is a 74 year old male patient who was seen today at bedside in room 419. Patient is status post EGD today and will be undergoing a Colonoscopy tomorrow. Hemoglobin improved to 9.0 today after the 1 unit of PRBC transfused on 12/02/2024. No dyspnea observe. Patient is afebrile, temperature is 99.1. We will continue on vancomycin and gentamicin IV per pharmacy protocol. We will continue to follow patient closely. PHYSICAL EXAM EYES: Anicteric. Pupils equal and reactive. HENT: No oral thrush seen, moist Oral mucosa. NECK: Supple, no JVD or thyromegaly. LUNGS: Good air entry. No rales, no rhonchi. CARDIOVASCULAR: S1, S2 regular. No murmur heard. ABDOMEN: Soft, non tender, bowel sounds present, no organomegaly CENTRAL NERVOUS SYSTEM: Awake, alert, oriented x 3. SKIN: No rashes, no swelling. LYMPHATICS: No peripheral lymphadenopathy. MUSCULOSKELETAL: No joint swelling, erythema or tenderness. EXTREMITIES: No edema. BACK: No deformity, no pressure ulcer. GENITOURINARY: No dysuria or hematuria. Vital Sign (Last 12 Hours) 12/04/24 12/04/24 12/04/24 12/04/24 11:47 12:00 12:00 12:00 Temp 99.1 Pulse 87 86 Resp 18 16 B/P (MAP) 135/64 128/56 Pulse Ox 96 96 O2 Delivery Room Air Mask mask Mask O2 Flow Rate 10.0 12/04/24 12/04/24 12/04/24 12/04/24 12:15 12:20 12:25 12:30 Temp 97.0 Pulse 83 84 82 81 Resp 14 15 15 14 B/P (MAP) 90/50 96/52 105/54 109/55 Pulse Ox 99 98 97 98 O2 Delivery Nasal Cannula Nasal Cannula Nasal Cannula Nasal Cannula O2 Flow Rate 3.0 3.0 3.0 2.0 12/04/24 12/04/24 12/04/24 12/04/24 12:35 12:40 12:45 12:50 Temp 97.9 Pulse 84 85 83 82 Resp 13 14 13 12 B/P (MAP) 106/54 100/52 111/56 126/56 Pulse Ox 95 96 95 94 O2 Delivery Room Air Room Air Room Air Room Air 12/04/24 12/04/24 12/04/24 12/04/24 12:55 13:13 13:18 13:49 Pulse 81 81 81 82 Resp 14 B/P (MAP) 131/59 142/68 134/65 133/66 Pulse Ox 95 96 96 96 O2 Delivery Room Air 12/04/24 12/04/24 12/04/24 12/04/24 14:03 14:19 14:48 15:04 Pulse 83 88 88 90 B/P (MAP) 141/70 160/76 106/50 118/52 Pulse Ox 95 97 93 94 12/04/24 12/04/24 12/04/24 12/04/24 15:18 15:33 15:48 16:03 Pulse 89 92 91 90 B/P (MAP) 108/53 119/61 121/59 122/56 Pulse Ox 93 96 97 93 12/04/24 12/04/24 12/04/24 12/04/24 16:18 16:33 16:48 17:05 Pulse 91 91 90 92 B/P (MAP) 131/62 131/62 123/64 135/60 Pulse Ox 94 94 97 98 12/04/24 21:00 Temp 98.6 Pulse 91 Resp 18 B/P (MAP) 132/64 Pulse Ox 96 O2 Delivery Room Air FiO2 21 Intake & Output (last 24hrs) 12/03/24 12/03/24 12/04/24 15:00 23:00 07:00 Intake Total 1200 ml Balance 1200 ml LABS: Laboratory: Test 12/04/24 19:37 12/04/24 05:20 12/03/24 22:22 12/03/24 20:40 Range/Units Whole Blood Glucose 168 H 70-110 MG/DL White Blood Count 8.7 4.8-10.8 K/uL Red Blood Count 2.96 L 4.50-6.20 MIL/uL Hemoglobin 9.0 L 14.0-18.0 g/dL Hematocrit 26.9 L 42-54 % Mean Corpuscular Volume 90.9 79-99 fL Mean Corpuscular Hemoglobin 30.4 27.0-33.0 pg Mean Corpuscular Hemoglobin Concent 33.5 32.0-36.0 g/dL Red Cell Distribution Width 16.6 H 11.0-15.5 % Platelet Count 135 130-400 K/uL Mean Platelet Volume 9.9 7.5-10.5 fL Immature Granulocyte % (Auto) 0.5 0-1 % Neutrophils (%) (Auto) 72.1 40.0-77.0 % Lymphocytes (%) (Auto) 15.4 L 21.0-51.0 % Monocytes (%) (Auto) 9.0 3.0-13.0 % Eosinophils (%) (Auto) 2.5 0.0-8.0 % Basophils (%) (Auto) 0.5 0.0-5.0 % Neutrophils # (Auto) 6.2 1.8-7.7 K/uL Lymphocytes # (Auto) 1.3 1.0-4.8 K/uL Monocytes # (Auto) 0.8 0.1-1.0 K/uL Eosinophils # (Auto) 0.22 0.00-0.70 K/uL Basophils # (Auto) 0.04 0.00-0.20 K/uL Absolute Immature Granulocyte (auto 0.04 0-1 K/uL Nucleated Red Blood Cells 0.0 0.0-0.19 % Sodium Level 141 136-145 mmol/L Potassium Level 4.6 3.5-5.1 mmol/L Chloride Level 104 101-111 mmol/L Carbon Dioxide Level 30 21-32 mmol/L Blood Urea Nitrogen 10 7-18 mg/dL Creatinine 1.5 H 0.5-1.3 mg/dL Glomerular Filtration Rate Calc 49 >90 mL/min Random Glucose 150 H 70-105 mg/dL Total Calcium 8.2 L 8.5-10.1 mg/dL Magnesium Level 1.70 L 1.80-2.40 mg/dL Total Bilirubin 0.3 0.2-1.0 mg/dL Aspartate Amino Transf (AST/SGOT) 20 10-37 U/L Alanine Aminotransferase (ALT/SGPT) 16 12-78 U/L Alkaline Phosphatase 67 50-136 U/L Total Protein 5.7 L 6.0-8.3 g/dL Albumin 2.0 L 3.5-5.0 g/dL Vancomycin Level Trough 15.9 10.0-20.0 UG/ML Gentamicin Level Peak 2.6 #L 4.0-8.0 mcg/mL Gentamicin Level Trough 0.7 # 0.0-2.0 mcg/mL Test 12/03/24 16:17 Range/Units Bedside Glucose Comment Notified Nurse DIAGNOSTICS / RADIOLOGY: SPEC: [id number] MICHELLE: 11/17/24 STATUS: COMP REQ: [id number] RECD: 11/18/24-[address]: SIMA MATTHEWS SOURCE: BLOOD ENTR: 11/18/24-140 [facility] DR: SAM FIGUERAO PA-C [facility] BLOOD NONE ORDERED: AERO ID & SENS Procedure Result Jose Alejandro Date-Time AEROBIC ID & SENSITIVITIES Final 11/21/24-0616 [facility] DESCRIPTION: DAY 1: GRAM POSITIVE COCCI IN CLUSTERS COAGULASE NEGATIVE STAPHYLOCOCCUS AEROBIC AND ANAEROBIC BOTTLES IDENTIFICATION AND SENSITIVITY TO FOLLOW STAPHYLOCOCCUS EPIDERMIDIS ROBERTO Barrera.I.CStef RX --------- ---- CLINDAMYCIN <=0.25 S ERYTHROMYCIN >4 R GENTAMICIN <=4 S VANCOMYCIN 1 S OXACILLIN AMRITA >2 R RIFAMPIN <=1 S TETRACYCLINE <=4 S TRIMETHOPRIM/SUFLAMETHOXAZOLE 2/38 S @ [facility] Test Performed at: [facility] [address], [place], [place] Medical Optical Engineer: Joaquim Izquierdo D.O. ASSESSMENT: Staphylococcus epidermidis bacteremia. Sepsis. 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 NSTEMI, status post heart catheterization on 11/28/2024. Chronic kidney disease. Anemia requiring blood transfusion. Diabetes mellitus. PLAN: Continue vancomycin per pharmacy protocol. Continue with Gentamycin IV, Continue rifampin 300mg BID Continue antidiabetic. Patient will need a total of 6 weeks of antibiotics. Patient has been approved to [facility]. Will monitor electrolytes. Scheduled for colonoscopy for tomorrow. This case has been discussed with my supervising physician Dr. Vargas and the above assessment and plan was formulated and agreed upon. ATTESTATION BY PHYSICIAN I have seen and examined the patient. I reviewed the documentation, medical decision making, and treatment plan as noted by the mid-level provider above. I agree with the findings and plan of care. JIMY VARGAS MD, [facility] Dec 04, 2024 23:09
[2024-12-05] VITALS (20 sets, daily range): BP systolic 100–147; BP diastolic 43–68; PULSE 90–100; RESP 12–19; TEMP 97.6–98.7; O2SAT 91
--- NOTE | 2024-12-05 05:38 | NUR ---
enema pt refused hs enema and am enema. stating he is clear. his stool is greenish/yellow.
--- NOTE | 2024-12-05 08:38 | PN ---
[facility] CARDIOLOGY PROGRESS NOTE Cardiology progress note dictated for Jacob King MD Date Patient Seen: Dec 05, 2024 Interval History: This is a 74-year-old [place] male with a past medical history of severe aortic stenosis status post minimally invasive aortic valve replacement with an extra-large Cristhian Phoenix bioprosthetic aortic valve 09/04/2016, essentially normal coronary arteries by prior cardiac catheterization 08/19/2016 with nonobstructive coronary artery disease by follow-up cardiac catheterization 11/28/2024 (30% and 30% tandem mid LAD stenoses, 50% diagonal one at 50% diagonal two stenoses, 30% proximal and mid left circumflex stenoses, and 30% proximal and mid RCA stenoses), hyperlipidemia, hypertension, type 2 diabetes mellitus was admitted for management of recurrent sepsis. He presented with generalized body weakness, fever and diarrhea onset 48 hours prior to admission. He had been managed at [facility] recently for bacteremia and was discharge 10/30/2024, his reporting that he had recurrent fevers beginning one week after discharge from [facility] (he was admitted here 10/05/2024 through 10/15/2024 with bacteremia and a MYKE on 10/09/2024 demonstrated no evidence of valvular vegetation). On admission he did have a temperature of 101. The patient did have evidence of elevated troponin with admission troponin of 350, rising to 3303 on 11/18/2024 and trending down. He underwent a 2D echocardiogram on 11/18/2024 demonstrated normal LVEF of 55- 60%, mild concentric LVH and stage I diastolic dysfunction. The bioprosthetic aortic valve was noted with peak aortic valve gradient of 41 mmHg, mean aortic valve gradient of 23 mmHg and dimensionless index of 1.42 and a small perivalvular leak. Blood cultures from 11/17/2024 and 11/19/2024 have grown Staphylococcus epidermidis (same organism from blood cultures done on prior admission 10/05/2024). Blood cultures from 11/21/2024 and 11/22/2024 have demonstrated no growth. Repeat blood cultures on 11/30/2024 and 12/02/2024 are no growth. Previously a transesophageal echo 10/09/2024 demonstrated no evidence of valvular vegetation. A chest CT angiogram 11/22/2024 demonstrated no definitive evidence of rodrigo-aortic valvular abscess. He underwent a repeat MYKE on 11/20/2024 demonstrating a 0.4 x 0.8 cm linear mobile vegetation on the anterior mitral valve leaflet, consistent with SBE. Prosthetic aortic valve demonstrated thickened leaflets, but no evidence of perforation, deterioration, or mobile/oscillating vegetation. There was trace central-valvular aortic insufficiency only. 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 The patient also underwent a gallium scan on 11/24/2024 demonstrating a normal scan with no increased uptake in the periaortic region. He underwent a limited 2D Echocardiogram on 12/04/2024 which demonstrated moderate aortic regurgitation, no aortic valvular stenosis, a Cristhian Jc Bioprosthetic aortic valve is present, aortic valve linear abscess is present measuring approximately 0.8cm, and an there is echogenic mass on the posterior mitral leaflet suggestive of vegetation measuring approx. 0.7cm. The case has been discussed with Dr. Dorothy Alexis in the plan is to attempt a completed course of antibiotics to attempt sterilization medically prior to attempting surgery in this frail debilitated gentleman with dementia. The patient is to undergo a colonoscopy today 12/04/2024. A 2D echocardiogram 12/04/2024 demonstrated [id number] aortic insufficiency,. Valvular abscess surrounding the aortic Cristhian bioprosthesis, and a mitral valve vegetation. In addition there was mild mitral valve regurgitation. Physical Examination: GENERAL: No acute distress. HEAD: Normal with no signs of head trauma. EYES: PERRLA, EOMI, conjunctiva and sclera normal. NECK: Supple without JVD. There is no tenderness, lymphadenopathy, or masses. No thyromegaly. Normal carotid upstrokes without bruits. LUNGS: Clear breath sounds bilaterally. No wheezes, or rhonchi. HEART: Normal rate and rhythm. Normal S1 and S2 there is a 2/6 mid peaking systolic ejection murmur louder at the left midsternal border. There is no diastolic murmur audible. There is no MR murmur audible. VASC: Peripheral pulses +2 bilaterally. Right groin cath site is soft and free of hematoma EXT: No clubbing, cyanosis or edema. NEURO: Awake, alert, and oriented x3. No focal neurological deficits noted. Laboratory: Hematology Labs: Test 12/04/24 05:20 Range/Units White Blood Count 8.7 4.8-10.8 K/uL Red Blood Count 2.96 L 4.50-6.20 MIL/uL Hemoglobin 9.0 L 14.0-18.0 g/dL Hematocrit 26.9 L 42-54 % Mean Corpuscular Volume 90.9 79-99 fL Mean Corpuscular Hemoglobin 30.4 27.0-33.0 pg Mean Corpuscular Hemoglobin Concent 33.5 32.0-36.0 g/dL Red Cell Distribution Width 16.6 H 11.0-15.5 % Platelet Count 135 130-400 K/uL Mean Platelet Volume 9.9 7.5-10.5 fL Immature Granulocyte % (Auto) 0.5 0-1 % Neutrophils (%) (Auto) 72.1 40.0-77.0 % Lymphocytes (%) (Auto) 15.4 L 21.0-51.0 % Monocytes (%) (Auto) 9.0 3.0-13.0 % Eosinophils (%) (Auto) 2.5 0.0-8.0 % Basophils (%) (Auto) 0.5 0.0-5.0 % Neutrophils # (Auto) 6.2 1.8-7.7 K/uL Lymphocytes # (Auto) 1.3 1.0-4.8 K/uL Monocytes # (Auto) 0.8 0.1-1.0 K/uL Eosinophils # (Auto) 0.22 0.00-0.70 K/uL Basophils # (Auto) 0.04 0.00-0.20 K/uL Absolute Immature Granulocyte (auto 0.04 0-1 K/uL Nucleated Red Blood Cells 0.0 0.0-0.19 % Chemistry Labs: Test 12/04/24 19:37 12/04/24 05:20 12/03/24 16:17 Range/Units Whole Blood Glucose 168 H 70-110 MG/DL Sodium Level 141 136-145 mmol/L Potassium Level 4.6 3.5-5.1 mmol/L Chloride Level 104 101-111 mmol/L Carbon Dioxide Level 30 21-32 mmol/L Blood Urea Nitrogen 10 7-18 mg/dL Creatinine 1.5 H 0.5-1.3 mg/dL Glomerular Filtration Rate Calc 49 >90 mL/min Random Glucose 150 H 70-105 mg/dL Total Calcium 8.2 L 8.5-10.1 mg/dL Magnesium Level 1.70 L 1.80-2.40 mg/dL Total Bilirubin 0.3 0.2-1.0 mg/dL Aspartate Amino Transf (AST/SGOT) 20 10-37 U/L Alanine Aminotransferase (ALT/SGPT) 16 12-78 U/L Alkaline Phosphatase 67 50-136 U/L Total Protein 5.7 L 6.0-8.3 g/dL Albumin 2.0 L 3.5-5.0 g/dL Bedside Glucose Comment Notified Nurse Diagnostics / Radiology: 2D echocardiogram 11/18/2024: Conclusion LVEF is 55-60% with normal wall motion (volume measurements made by copier field service technician are inaccurate). Stage I diastolic dysfunction with elevated mean LV filling pressure. The left atrium size is mildly dilated. Bioprosthetic aortic valve is present, probably a TAVR. Peak/Mean gradient 41/23 mmHg. Small perivalvular leak. Mitral regurgitation is mild. MYKE 11/20/2024: There was a 0.4 x 0.8 cm linear mobile vegetation on the anterior mitral valve leaflet, consistent with SBE. Prosthetic aortic valve demonstrates thickened leaflets, but no evidence of perforation, deterioration, or mobile or oscillating vegetation. There was trace central-valvular aortic insufficiency only. Repeat review of the MYKE suggests a perivalvular aortic abscess, extending down the aorta mitral curtain to the anterior mitral leaflet with a mitral leaflet vegetation. Limited 2D Echocardiogram on 12/04/2024 Conclusion Limited exam. Moderate aortic regurgitation. There is no aortic valvular stenosis. Cristhian Jc Bioprosthetic aortic valve is present. Aortic valve linear abscess is present measuring approximately 0.8cm. There is echogenic mass on the posterior mitral leaflet suggestive of vegetation measuring approx. 0.7cm. 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 Repeat blood cultures from 11/21/2024, 11/22/2024, 11/30/2024, and 12/02/2024 have demonstrated no growth -CT of thoracic spine and lumbar spine demonstrated no apparent infectious process. There is fixation hardware in the lumbar spine -the patient has two indications for surgical management of his endocarditis i ncluding relapse of prosthetic valve endocarditis and evidence of perivalvular aortic abscess, and new appearance of aortic insufficiency by echo 12/04/2024. However the patient is frail, has dementia, and is malnourished. Calculate STS score and discussed with CT surgery. Type [address] segment elevation OR, in the setting of sepsis, with troponin rising to 3303: Nonobstructive coronary artery disease (30% and 30% tandem mid LAD stenoses, 50% diagonal one at 50% diagonal two stenoses, 30% proximal and mid left circumflex stenoses, and 30% proximal and mid RCA stenoses) by cardiac catheterization 11/28/2024: Normal LVEF with an LVEF of 55-60% and normal wall motion on 2D echocardiogram 11/18/2024: -continue antiplatelet therapy and statin therapy Severe aortic stenosis status post minimally invasive aortic valve replacement with an extra-large Cristhian Phoenix bioprosthetic aortic valve 09/04/2016: -normal functioning bioprosthetic aortic valve by 2D echocardiogram 11/18/2024, and by transesophageal echo 11/20/2024, with evidence of perivalvular aortic abscess --the patient has two indications for surgical management of his endocarditis including relapse of prosthetic valve endocarditis and evidence of perivalvular aortic abscess, and new appearance of aortic insufficiency by echo 12/04/2024. However the patient is frail, has dementia, and is malnourished. Calculate STS score and discussed with CT surgery. Normocytic normochromic anemia, iron-deficiency: -begin folate and thiamine supplementation and multiple vitamin -B12 and folate levels were within normal limit and he has been initiated on iron supplementation -Colonoscopy planned for today Comorbidities: C-spine myelomalacia Dementia MYKE 10/09/2024 demonstrated an LVEF of 45-50% and no valvular vegetations Hypertension Hyperlipidemia Type 2 diabetes mellitus PHYSICIAN ATTESTATION OF PHYSICIAN MANAGER FOOD SAFETY DOCUMENTATION: I attest that I was physically present for the candelario portions of the service and evaluated the patient with the Physician Digital X Ray Service Engineer, and I reviewed and discussed the case with the Physician Digital X Ray Service Engineer and made modifications to the Physician Digital X Ray Service Engineer's findings and plans of care as documented above MALLIKA PEARCE Dec 05, 2024 08:38 JACOB KING MD Dec 05, 2024 09:35
--- NOTE | 2024-12-05 10:44 | PN ---
[facility] PROGRESS NOTE Date of Service: Dec 05, 2024 Time of Service: 10:[address] Cochran SUBJECTIVE: [ ] Mr. Bennett is a 74-year-old male that was seen and examined today on 11/17/2024. Patient is a poor historian and personal health due to past medical history of dementia. Patient's , Erma Thomas is at bedside. Patient says that patient came to the emergency department with a chief complaint of weakness. Onset was today at 5:00 p.m.. Location is to bilateral lower extremities. Duration is constant. Character is described as, "he was just sitting in the sofa all day and sleeping more than usual. There was no alleviating factors. There was no aggravating factors. Spouse reports associated fever and chills. 11/18/24 patient was seen earlier patient is lying in bed with family at bedside. Patient was discharged from LTAC for long-term IV antibiotics discharged home with oral antibiotics we will have ID on board. Patient denied chest pain or shortness for breath. 11/19/24 patient was seen patient denied chest pain shortness a breath. He complaints being constipated we will provide as needed lactulose. Patient waiting for CT lumbar spine examined to be done most likely on Wednesday. We will have Physical therapy work with patient as well. All questions and answers addressed appropriately. 11/20/2024 patient was seen earlier patient is lying in bed patient went for a MYKE this morning. We will follow-up results continues with triple antibiotics tolerating well cultures in process. Continues to work with physical therapy primary nurse reports no events overnight 11/21/2024 patient was seen earlier patient is lying in bed encourage out of bed to chair as tolerated. Continue with broad-spectrum antibiotics vancomycin Zosyn IV. 11/22/24 patient is seen and examined patient is lying in bed. Case management discharge planning LTAC patient is pending CT angio for abscess on valve. We will continue to monitor patient closely. 11/23/24 PATIENT IS SEEN AND EXAMINED PATIENT IS FULLY AWAKE ALERT ORIENTED X3.chest CT angiogram demonstrated no definitive evidence of rodrigo-aortic valvular abscess, DR. 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 11/24/24 patient was working with physical therapy ambulate with walker with assist. Patient will remain sitting in recliner as tolerated. Waiting for CV recommendations. Patient denied chest pain or shortness for breath patient reports having difficulty sleeping yesterday 11/25/24 late entry: The patient is waiting to get in shower, reports no new complaints. continue with Series of CT scans: given to perivalvular aortic abscess, continue with Broad spectrum antibiotics will follow gamma facilities operator recommendations. 11/26/24 patient is seen patient reports no chest pain or shortness for breath patient went for his last CT imaging we will follow-up gamma facilities operator's recommendations. Primary nurse reports no events overnight 11/27/24 patient was seen patient was fully awake alert oriented x3 spouse at bedside. Denied chest pain shortness a breath. Continue with IV antibiotics WBCs improving down to8.5 Patient is having a white blood cell scan results are still pending. Crew Car Driver's Dr. King we will proceed with left heart catheterization in the morning. 11/28/24 patient is going for a left heart catheterization this morning per gamma facilities operator's WBCs scan was positive we will wait for final recommendations from CV and gamma facilities operator's; with possible a redo AVR versus long-term antibiotics the patient return back from crime lab analyst without complications 11/29/24 patient is seen earlier patient is fully awake alert oriented x3 denied chest pain. at bedside we will wait for CV and gamma facilities operator's recommendation if patient will need surgery. Continues with broad-spectrum antibiotics low hgb: will start IV venofer. 11/30/24 patient was seen by nurse practitioner and physician during rounding in room 419. As per cardiovascular surgeon patient will need to complete six weeks of antibiotics and then come back to the hospital for possible replacement of bioprosthesis. . Blood grew Streptococcus epidermidis. Case management was consulted and patient is pending [facility] placement once insurance approved. We will continue to monitor patient in the meantime. A.m. labs. 12/01/24 patient was seen by nurse practitioner and physician during rounding in room 419. Patient had a temp last night at 11:15 p.m. of 100.9. Lactic acid was 0.9. No more episodes of any temperature afterwards. Patient denies any shortness of breath, chest pain, nausea, vomiting. Dietary was consulted. We will continue to monitor patient in the meantime. A.m. labs. Patient is pending [facility] once insurance accepted. Medication reconciliation was performed by EP SPECIALIST today 12/01/2024 and placed on chart. 12/02/24 patient was seen by nurse practitioner and physician during rounding in room 419. Today WBC is 7.0 we will order one PRBC to be transfused. Occult blood was also ordered and we will consult GI for further recommendations-plan. Patient was denied from [facility] and peer to peer was performed per Infectious Disease doctor. Patient will need six weeks of antibiotics for blood positive for Streptococcus epidermidis. Once the antibiotics will be completed cardiovascular surgeon we will proceed with replacement of bioprosthesis with a new one. Patient was also evaluated by printing agent and recommends to continue multivitamin supplements current diet with p.o. supplementation. If no BM > three days consulted bowel stimulant. And consider appetite stimulant if intake remains less than 75% for three days. We will continue to monitor patient in the meantime. A.m. labs. Family member at the bedside was updated regards to further plan 12/03 patient was seen by nurse practitioner and physician during rounding in room 419. Patient is s/p one PRBC transfusion on 12/02/2024. Morning hemoglobin 8.3. Patient was evaluated by the GI and is pending colonoscopy and EGD tomorrow 12/04/2024. Once medically cleared patient will be discharged to [facility] once approved. Case management working on disposition. We will continue to monitor patient in the meantime. A.m. labs 12/04 Discharge Note Patient is74 years old male who came to emergency department with a complaint of bilateral lower extremity weakness and tiredness. On admission patient was diagnosed with sepsis placed on vancomycin and Zosyn at [facility] as per ID. Patient was evaluated by the gamma facilities operator and MYKE was performed on 11/20/2024. CT angiogram was performed and showed no defined evidence of periaortic valvular abscess. As per Dr. 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 Cardiovascular surgeon was consulted. Patient was placed on vancomycin, rifampin and gentamicin as per ID. Patient underwent left heart catheterization on 11/28/24 and patient was recommended to be discharged to [facility]. After evaluation of the cardiovascular surgeon, it was recommended to complete IV antibiotic treatment for positive blood culture Streptococcus epidermidis and then proceed with repla cement of bioprosthesis with a new one. Patient was also evaluated by printing agent and recommends to continue multivitamin supplements current diet with p.o. supplementation. If no BM > three days consulted bowel stimulant. And consider appetite stimulant if intake remains less than 75% for three days. In the meantime patient was also found to drop in hemoglobin of 7.0 and1 PRBC was given on 12/02/2024 as well as GI was consulted. hemoglobin went up to 8.3 S/p transfusion. Patient was also diagnosed with iron-deficiency anemia and was placed on iron pills. Hemoglobin and hematocrit has been stable since then. Today patient will undergo EGD and colonoscopy 12/04/2024. Once cleared by the GI patient is cleared to be discharged to [facility] for IV antibiotic treatment. Patient was advised to follow up with PCP in2 to 3 days. GI within two weeks. Crew Car Driver within two weeks. And cardiovascular surgeon once IV antibiotics completed. 12/05 patient was seen by nurse practitioner and physician during rounding in room 419. Patient was able to undergo EGD yesterday and was negative. Unfortunately patient was not cleared enough for the colonoscopy and was rescheduled for today in the morning. If negative patient is cleared to be discharged to [facility]. Nurse to carry on the orders. REVIEW OF SYSTEMS CONSTITUTIONAL: Denies fevers, chills, or night sweats. No unintentional weight loss reported. NEUROLOGICAL: Denies headache, amaurosis fugax, motor weakness, sensory deficit, vertigo/spinning sensation, gait abnormalities, or tremors. ENT: No hearing loss, otalgia, otorrhea, rhinitis, rhinorrhea, hoarseness, or sore throat. CARDIOVASCULAR: Denies any exertional angina, dyspnea on exertion, orthopnea, paroxysmal nocturnal dyspnea, palpitations, life-threatening arrhythmias, claudication. PULMONARY: Denies any shortness of breath, cough, phlegm/sputum, hemoptysis, pleuritic chest pain. SLEEP: Denies morning headaches, daytime somnolence or napping. Denies difficulty falling asleep, staying asleep, waking from sleep. Denies knowledge of snoring. GASTROINTESTINAL: Denies any type of dysphagia to either liquids or solids. Denies nausea, vomiting, pyrosis, early satiety, abdominal pain, diarrhea, constipation, or changes in stool consistency or caliber. Denies coffee-ground emesis, hematemesis, hematochezia, or melanotic stools. GENITOURINARY: Denies frequency, urgency, nocturia, hematuria or incontinence (Storage/Irritative symptoms.) Low urinary stream, straining to void, urinary intermittency or hesitancy, splitting of the voiding stream, terminal dribbling. ENDOCRINOLOGIC: Denies polyuria, polydipsia, polyphagia or heat/cold intoleran libia. HEMATOLOGIC: Denies thrombophilia/previous clots, or coagulopathy/bleeding disorders. ONCOLOGIC: Denies personal history of malignancy. DERMATOLOGIC: Denies rashes or pruritus. PSYCHIATRIC: Denies any suicidal or homicidal ideation. Denies hallucinations. PHYSICAL EXAM GENERAL APPEARANCE: The patient is awake, alert, and oriented, in no acute cardiopulmonary distress. NEUROLOGICAL: Cranial nerves II-XII grossly intact. Motor is 5/5 in bilateral upper and lower extremities proximal to distal. No sensory deficits. HEENT: Face is symmetric. Pupils are equal and reactive. Extraocular movements are intact. NECK: Supple. No JVD. No thyromegaly. No submental, submandibular, pre- /postauricular, occipital or supraclavicular lymphadenopathy. CHEST: Normal chest expansion. No Telemetry. LUNGS: Absence of any rales, rhonchi or any wheezing. CARDIOVASCULAR: Regular. S1 and S2 normal. No appreciable rubs, murmurs or gallops. ABDOMEN: Soft, nontender, and nondistended. There is no rebound, voluntary guarding, or rigidity. : Deferred. No Emmanuel. EXTREMITIES: Non-edematous and not cyanotic. No clubbing. Good capillary refill. SKIN: No skin breakdown. Vital Signs (last 8hr) Date Time Temp Pulse Resp B/P (MAP) Pulse Ox O2 Delivery O2 Flow Rate FiO2 12/05/24 09:14 91 Room Air* 0 21 12/05/24 08:00 98.6 90 17 138/60 97 Room Air 12/05/24 04:22 98.4 96 18 147/68 99 Room Air 21 LABS: Laboratory: Test 12/04/24 19:37 12/04/24 05:20 12/03/24 22:22 12/03/24 20:40 Range/Units Whole Blood Glucose 168 H 70-110 MG/DL White Blood Count 8.7 4.8-10.8 K/uL Red Blood Count 2.96 L 4.50-6.20 MIL/uL Hemoglobin 9.0 L 14.0-18.0 g/dL Hematocrit 26.9 L 42-54 % Mean Corpuscular Volume 90.9 79-99 fL Mean Corpuscular Hemoglobin 30.4 27.0-33.0 pg Mean Corpuscular Hemoglobin Concent 33.5 32.0-36.0 g/dL Red Cell Distribution Width 16.6 H 11.0-15.5 % Platelet Count 135 130-400 K/uL Mean Platelet Volume 9.9 7.5-10.5 fL Immature Granulocyte % (Auto) 0.5 0-1 % Neutrophils (%) (Auto) 72.1 40.0-77.0 % Lymphocytes (%) (Auto) 15.4 L 21.0-51.0 % Monocytes (%) (Auto) 9.0 3.0-13.0 % Eosinophils (%) (Auto) 2.5 0.0-8.0 % Basophils (%) (Auto) 0.5 0.0-5.0 % Neutrophils # (Auto) 6.2 1.8-7.7 K/uL Lymphocytes # (Auto) 1.3 1.0-4.8 K/uL Monocytes # (Auto) 0.8 0.1-1.0 K/uL Eosinophils # (Auto) 0.22 0.00-0.70 K/uL Basophils # (Auto) 0.04 0.00-0.20 K/uL Absolute Immature Granulocyte (auto 0.04 0-1 K/uL Nucleated Red Blood Cells 0.0 0.0-0.19 % Sodium Level 141 136-145 mmol/L Potassium Level 4.6 3.5-5.1 mmol/L Chloride Level 104 101-111 mmol/L Carbon Dioxide Level 30 21-32 mmol/L Blood Urea Nitrogen 10 7-18 mg/dL Creatinine 1.5 H 0.5-1.3 mg/dL Glomerular Filtration Rate Calc 49 >90 mL/min Random Glucose 150 H 70-105 mg/dL Total Calcium 8.2 L 8.5-10.1 mg/dL Magnesium Level 1.70 L 1.80-2.40 mg/dL Total Bilirubin 0.3 0.2-1.0 mg/dL Aspartate Amino Transf (AST/SGOT) 20 10-37 U/L Alanine Aminotransferase (ALT/SGPT) 16 12-78 U/L Alkaline Phosphatase 67 50-136 U/L Total Protein 5.7 L 6.0-8.3 g/dL Albumin 2.0 L 3.5-5.0 g/dL Vancomycin Level Trough 15.9 10.0-20.0 UG/ML Gentamicin Level Peak 2.6 #L 4.0-8.0 mcg/mL Gentamicin Level Trough 0.7 # 0.0-2.0 mcg/mL Test 12/03/24 16:17 Range/Units Bedside Glucose Comment Notified Nurse Current Medications Medications (Trade) Dose Ordered Sig/Ann Marie Route PRN Reason Start Time Stop Time Status Last Admin Dose Admin Acetaminophen (TYLenol 325MG TAB) 650 mg ONCE PO 12/02/24 07:30 12/02/24 07:36 DC Acetaminophen (TYLenol 325MG TAB) 650 mg Q6H PRN PO TEMPERATURE GREATER THAN 101.5 11/17/24 22:00 12/17/24 21:59 12/02/24 21:59 650 MG Aspirin (Aspirin 81mg Ec Tab) 81 mg DAILY PO 11/18/24 09:00 11/18/24 14:00 DC 11/18/24 09:48 81 MG Aspirin (Aspirin 81mg Ec Tab) 81 mg DAILY PO 11/19/24 09:00 12/19/24 08:59 12/03/24 10:00 81 MG Atorvastatin Calcium (LIPItor 40MG) 40 mg HS PO 11/18/24 21:00 12/18/24 20:59 12/04/24 20:46 40 MG Clotrimazole (Lotrisone Cream) 1 APPL TO FACE BID TP 11/26/24 21:00 12/26/24 20:59 12/04/24 20:46 1 GM Diphenhydramine HCl (BENAdryl CAP) 25 mg ONCE PO 12/02/24 07:30 12/02/24 07:36 DC Donepezil HCl (ARIcept 5MG TAB) 5 mg HS PO 11/18/24 21:00 12/18/24 20:59 12/04/24 20:46 5 MG Doxycycline Hyclate (Doxycycline Hyclate) 100 mg Q12H PO 11/18/24 12:00 11/20/24 13:14 DC 11/19/24 22:59 100 MG Enoxaparin Sodium (Lovenox) 40 mg DAILY SQ 11/18/24 09:00 11/18/24 01:27 DC Famotidine (Pepcid 20mg Tab) 20 mg DAILY PO 11/18/24 09:00 12/18/24 08:59 12/03/24 10:00 20 MG Gabapentin (NEURontin 300 MG CAP) 300 mg BID PO 11/18/24 21:00 12/18/24 20:59 12/04/24 20:46 300 MG Gentamicin Sulfate 50 mg/ Sodium Chloride 100 ml @ 200 mls/hr Q12H9 IV 11/30/24 09:00 12/02/24 10:30 DC 12/02/24 09:00 200 MLS/HR Gentamicin Sulfate 60 mg/ Sodium Chloride 100 ml @ 200 mls/hr Q12H9 IV 11/26/24 09:00 11/30/24 06:21 DC 11/29/24 21:07 200 MLS/HR Gentamicin Sulfate 60 mg/ Sodium Chloride 100 ml @ 200 mls/hr Q24H IV 12/03/24 09:00 12/03/24 09:40 DC Gentamicin Sulfate 60 mg/ Sodium Chloride 100 ml @ 200 mls/hr Q36H IV 12/03/24 21:00 12/17/24 20:59 12/05/24 09:12 200 MLS/HR Gentamicin Sulfate 60 mg/ Sodium Chloride 100 ml @ 200 mls/hr Q8H IV 11/24/24 14:00 11/25/24 17:17 DC 11/25/24 06:00 200 MLS/HR Gentamicin Sulfate (GENTAmicin PROTOCOL) 1 each AD IV 11/24/24 13:30 12/08/24 13:29 Home Med (Home Medication) BID OP 11/18/24 21:00 12/18/24 20:59 11/30/24 19:53 1 EACH Hydralazine HCl (APRESOLine 20MG INJ) 10 mg Q6H PRN IV For:SBP above 160;DBP above 90 11/17/24 22:00 12/17/24 21:59 Insulin Human Regular (humuLIN R 100 UNIT/ML 3ML) INSULIN SLIDING SCAL... ACHS SQ 11/18/24 07:30 12/18/24 07:29 12/03/24 16:43 2 UNIT Iron Sucrose (VenoFER) 200 mg DAILY IV 11/29/24 12:00 12/01/24 12:00 DC 12/01/24 09:50 200 MG Magnesium Sulfate 50 ml @ 0 mls/hr PROTOCOL IV 12/01/24 07:00 12/04/24 06:40 DC 12/01/24 16:27 25 MLS/HR Magnesium Sulfate 50 ml @ 0 mls/hr PROTOCOL IV 12/04/24 07:00 12/04/24 15:05 DC Magnesium Sulfate 50 ml @ 0 mls/hr PROTOCOL PRN IV RX MONITORING LEVELS & DOSING 11/17/24 23:00 11/18/24 01:30 DC 11/18/24 00:22 25 MLS/HR Magnesium Sulfate 50 ml @ 0 mls/hr PROTOCOL PRN IV h 11/18/24 01:30 12/18/24 01:29 12/04/24 19:29 25 MLS/HR Morphine Sulfate (morPHINE 2MG SYG) 2 mg Q4H PRN IVP SEVERE PAIN (7-10) 11/17/24 22:00 11/23/24 00:59 DC Nitroglycerin (Nitrostat) 0.4 mg PROTOCOL PRN SL CHEST PAIN 11/17/24 22:00 12/17/24 21:59 Ondansetron HCl (zoFRAN 4MG INJ) 4 mg Q6H PRN IV NAUSEA/VOMITING 11/17/24 22:00 12/17/24 21:59 11/18/24 20:20 4 MG Pharmacy Profile Note (Lace Assessment) 1 each AD MISC 11/24/24 12:30 11/24/24 13:00 DC Pharmacy Profile Note (Lace Assessment) 1 each AD MISC 11/25/24 16:00 11/26/24 07:15 DC Pharmacy Profile Note (Pharmacy Communication) 1 each ONCE MISC 11/20/24 12:30 11/20/24 12:16 DC Piperacillin Sod/ Tazobactam Sod (Zosyn 3.375gm+NS 50ml) 3.375 gm Q8H IV 11/18/24 05:00 11/22/24 10:54 DC 11/22/24 05:35 3.375 GM Potassium Chloride 100 ml @ 100 mls/hr AD PRN IV POTASSIUM PROTOCOL 11/18/24 01:30 12/18/24 01:29 Potassium Chloride (K-Dur/Klor-Con 20meq) 20 meq AD PRN PO POTASSIUM PROTOCOL 11/18/24 01:30 12/18/24 01:29 12/01/24 09:49 20 MEQ Potassium Chloride (KCl 10% Elixir 20meq/15ml) 20 meq AD PRN PO POTASSIUM PROTOCOL 11/18/24 01:30 12/18/24 01:29 Rifampin (riFADin 300 MG CAP) 300 mg BID PO 12/03/24 11:00 12/17/24 10:59 12/04/24 20:46 300 MG Rifampin (riFADin 300 MG CAP) 300 mg BID PO 11/20/24 21:00 11/30/24 20:59 DC 11/30/24 09:57 300 MG Sodium Chloride 1,000 ml @ 100 mls/hr Q10H IV 11/28/24 09:30 11/28/24 19:29 DC 11/28/24 10:15 100 MLS/HR Vancomycin HCl 100 ml @ 100 mls/hr BID@0600,1800 IV 11/26/24 06:00 11/26/24 07:19 DC 11/26/24 05:18 100 MLS/HR Vancomycin HCl 100 ml @ 100 mls/hr ONCE IV 11/25/24 22:30 11/25/24 23:59 DC 11/25/24 22:32 100 MLS/HR Vancomycin HCl 250 ml @ 83.333 mls/ hr Q24H IV 11/20/24 22:00 11/23/24 21:49 DC 11/22/24 21:44 83.333 MLS/HR Vancomycin HCl 250 ml @ 83.333 mls/ hr Q24H IV 11/23/24 22:00 11/24/24 12:24 DC 11/23/24 22:14 83.333 MLS/HR Vancomycin HCl 250 ml @ 125 mls/hr ONCE IV 11/25/24 16:30 11/25/24 18:30 DC 11/25/24 16:39 125 MLS/HR Vancomycin HCl 250 ml @ 125 mls/hr Q12H IV 11/26/24 18:00 11/28/24 06:20 DC 11/27/24 17:09 125 MLS/HR Vancomycin HCl 250 ml @ 125 mls/hr Q24H IV 11/29/24 06:00 12/09/24 05:59 12/05/24 05:22 125 MLS/HR Vancomycin HCl 250 ml @ 125 mls/hr Q24H IV 11/18/24 22:00 11/20/24 21:14 DC 11/19/24 21:20 125 MLS/HR Vancomycin HCl (Vancomycin Protocol) 1 each AD IV 11/17/24 21:30 11/20/24 13:14 DC Vitamin B Complex/ Vit C/Vit E/Zinc (Stresstab/Zinc) 1 tab DAILY PO 11/29/24 09:00 12/29/24 08:59 12/03/24 10:00 1 TAB DIAGNOSTICS / RADIOLOGY: [ ] ASSESSMENT: Acute blood loss requiring transfusion of one PRBC on 12/02/2024 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 Elevated troponin most likely SC type II: in the setting of sepsis POA acute on chronic heart failure with EF 45-50% with exacerbation BNP elevated POa Iron deficiency POA Thrombocytopenia, POA MULTIFOCAL ANEMIA HYPOKALEMIA Chronic back pain POA Uncontrolled Diabetes mellitius type2, POA Severe protein calorie malnutrition with muscle atrophy POA Dementia Hyperlipidemia CAD Hypertension] ATTESTATION BY PHYSICIAN I have seen and examined the patient. I reviewed the documentation, medical decision making, and treatment plan as noted by the mid-level provider above. I agree with the findings and plan of care. PHONG COCHRAN MD, KATARZYNA B HARDENING MACHINE OPERATOR Dec 05, 2024 10:44
--- NOTE | 2024-12-05 11:41 | NUR ---
PATIENT OFF UNIT PATIENT OFF UNIT FOR COLONOSCOPY
--- NOTE | 2024-12-05 12:38 | NUR ---
NURSING OBSERVATION UNABLE TO ASSESS PAIN/OBSERVATION PATIENT OFF UNIT FOR PROCEDURE. Addendum: 12/05/24 at 1239 by FABIOLA BAILON RN RN Amended: Links added.
--- NOTE | 2024-12-05 13:04 | NUR ---
UNIT ARRIVAL RECEIVED PATIENT FROM PACU NURSE. PATIENT AWAKE AND ALERT. PATIENT DENIES PAIN AT THIS TIME. VITAL SIGNS BLOOD PRESSURE 145/64, HR 101 SPO2 98% ON ROOM AIR.
--- NOTE | 2024-12-05 18:20 | NUR ---
PATIENT REPORT CALLED REPORT TO [facility], SPOKE WITH MARYELLEN. ALL QUESTIONS ANSWERED. PENDING EMS PSYCHIATRIC TECHNICIAN.
--- NOTE | 2024-12-05 18:45 | NUR ---
PATIENT TRANSPORT CALLED AND SPOKE WITH SARA AT [facility] FOR PATIENT TRANSPORT. STATED THEY WOULD BE ON THE WAY.
--- NOTE | 2024-12-05 18:50 | NUR ---
PATIENT DISCHARGE DISCHARGE INSTRUCTIONS GIVEN. MED REQ TO BE SENT WITH PATIENT TO [facility]. PATIENT AWARE TO FOLLOW UP WITH PCP IN 2-3 DAYS. PATIENT AWARE TO FOLLOW UP WITH RISK CONTROL PRODUCT LIABILITY DIRECTOR IN 2 WEEKS. PATIENT AWARE TO FOLLOW UP WITH CARDIOVASCULAR SURGEON UPON COMPLETION OF ANTIBIOTIC TREATMENT. ALL QUESTIONS ANSWERED. PATIENT PENDING EMS DIELECTRIC TESTING MACHINE OPERATOR.
--- NOTE | 2024-12-05 22:21 | PN ---
INFECTIOUS DISEASE PROGRESS NOTE Date of Service: Dec 05, 2024 SUBJECTIVE: Patient is s/p EGD yesterday and during rounding today patient is out for a Colonoscopy procedure. Remains afebrile, temperature is 98.8. Continues on vancomycin and gentamicin IV per pharmacy protocol. No other issues reported by nursing. PHYSICAL EXAM EYES: Anicteric. Pupils equal and reactive. HENT: No oral thrush seen, moist Oral mucosa. NECK: Supple, no JVD or thyromegaly. LUNGS: Good air entry. No rales, no rhonchi. CARDIOVASCULAR: S1, S2 regular. No murmur heard. ABDOMEN: Soft, non tender, bowel sounds present, no organomegaly. CENTRAL NERVOUS SYSTEM: Awake, alert, oriented x 3. SKIN: No rashes, no swelling. LYMPHATICS: No peripheral lymphadenopathy. MUSCULOSKELETAL: No joint swelling, erythema or tenderness. EXTREMITIES: No edema. BACK: No deformity, no pressure ulcer. GENITOURINARY: No dysuria or hematuria. Vital Sign (Last 12 Hours) 12/05/24 12/05/24 12/05/24 12/05/24 12:00 12:00 12:00 12:25 Temp 98.8 97.7 Pulse 91 99 Resp 17 12 B/P (MAP) 100/44 113/55 Pulse Ox 100 100 O2 Delivery Room Air Mask Mask Nonrebreathing Mask O2 Flow Rate 10.0 10.0 12/05/24 12/05/24 12/05/24 12/05/24 12:30 12:35 12:40 12:45 Pulse 100 100 100 100 Resp 17 13 19 18 B/P (MAP) 124/60 124/61 131/62 133/60 Pulse Ox 100 100 98 98 O2 Delivery Nonrebreathing Mask Nonrebreathing Mask Room Air Room Air O2 Flow Rate 10.0 10.0 12/05/24 12/05/24 12/05/24 12/05/24 12:50 12:55 13:00 15:59 Temp 97.5 Pulse 100 100 Resp 17 17 B/P (MAP) 135/64 130/59 143/64 106/43 Pulse Ox 97 97 O2 Delivery Room Air Room Air 12/05/24 12/05/24 12/05/24 12/05/24 16:14 16:29 16:44 16:59 B/P (MAP) 108/46 126/56 121/55 127/56 12/05/24 12/05/24 12/05/24 17:14 17:30 20:05 Temp 98.1 Pulse 93 Resp 18 B/P (MAP) 128/57 130/60 127/64 Pulse Ox 96 O2 Delivery Room Air FiO2 21 Intake & Output (last 24hrs) 12/04/24 12/04/24 12/05/24 15:00 23:00 07:00 Intake Total 220 ml 250.0 ml Balance 220 ml 250.0 ml LABS: Laboratory: Test 12/04/24 19:37 12/04/24 05:20 12/03/24 22:22 Range/Units Whole Blood Glucose 168 H 70-110 MG/DL White Blood Count 8.7 4.8-10.8 K/uL Red Blood Count 2.96 L 4.50-6.20 MIL/uL Hemoglobin 9.0 L 14.0-18.0 g/dL Hematocrit 26.9 L 42-54 % Mean Corpuscular Volume 90.9 79-99 fL Mean Corpuscular Hemoglobin 30.4 27.0-33.0 pg Mean Corpuscular Hemoglobin Concent 33.5 32.0-36.0 g/dL Red Cell Distribution Width 16.6 H 11.0-15.5 % Platelet Count 135 130-400 K/uL Mean Platelet Volume 9.9 7.5-10.5 fL Immature Granulocyte % (Auto) 0.5 0-1 % Neutrophils (%) (Auto) 72.1 40.0-77.0 % Lymphocytes (%) (Auto) 15.4 L 21.0-51.0 % Monocytes (%) (Auto) 9.0 3.0-13.0 % Eosinophils (%) (Auto) 2.5 0.0-8.0 % Basophils (%) (Auto) 0.5 0.0-5.0 % Neutrophils # (Auto) 6.2 1.8-7.7 K/uL Lymphocytes # (Auto) 1.3 1.0-4.8 K/uL Monocytes # (Auto) 0.8 0.1-1.0 K/uL Eosinophils # (Auto) 0.22 0.00-0.70 K/uL Basophils # (Auto) 0.04 0.00-0.20 K/uL Absolute Immature Granulocyte (auto 0.04 0-1 K/uL Nucleated Red Blood Cells 0.0 0.0-0.19 % Sodium Level 141 136-145 mmol/L Potassium Level 4.6 3.5-5.1 mmol/L Chloride Level 104 101-111 mmol/L Carbon Dioxide Level 30 21-32 mmol/L Blood Urea Nitrogen 10 7-18 mg/dL Creatinine 1.5 H 0.5-1.3 mg/dL Glomerular Filtration Rate Calc 49 >90 mL/min Random Glucose 150 H 70-105 mg/dL Total Calcium 8.2 L 8.5-10.1 mg/dL Magnesium Level 1.70 L 1.80-2.40 mg/dL Total Bilirubin 0.3 0.2-1.0 mg/dL Aspartate Amino Transf (AST/SGOT) 20 10-37 U/L Alanine Aminotransferase (ALT/SGPT) 16 12-78 U/L Alkaline Phosphatase 67 50-136 U/L Total Protein 5.7 L 6.0-8.3 g/dL Albumin 2.0 L 3.5-5.0 g/dL Vancomycin Level Trough 15.9 10.0-20.0 UG/ML Gentamicin Level Peak 2.6 #L 4.0-8.0 mcg/mL ASSESSMENT: Staphylococcus epidermidis bacteremia. Sepsis. 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 Perivalvular abscess. NSTEMI, s/p heart catheterization on 11/28/2024. Chronic kidney disease. Anemia requiring blood transfusion, s/p EGD. Diabetes mellitus. PLAN: Continue vancomycin per pharmacy protocol. Continue with Gentamycin IV, Continue rifampin. Continue antidiabetic. Patient will need a total of 6 weeks of antibiotics. Patient has been approved to [facility]. Will monitor electrolytes. Scheduled for colonoscopy for today. This case has been discussed with my supervising physician Dr. Vargas and the above assessment and plan was formulated and agreed upon. ATTESTATION BY PHYSICIAN I have seen and examined the patient. I reviewed the documentation, medical decision making, and treatment plan as noted by the mid-level provider above. I agree with the findings and plan of care. JIMY VARGAS MD, [facility] Dec 05, 2024 22:21
--- NOTE | 2024-12-06 02:00 | CONS ---
HISTORY OF PRESENT ILLNESS: A 74-year-old gentleman who underwent an aortic valve replacement through a minimally invasive approach on 09/04/2016, presented with recurrent bouts of sepsis. Positive cultures for Serratia. The patient has been on antibiotics and his cultures have been negative. Transesophageal echocardiogram demonstrates a circular area around the valve that could mimic an abscess. The patient has minimal hemodynamic repercussion from what appears to be perianal abscess. I have had the opportunity to review the films and discuss the case with Dr. King, the caring Cardiology. 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 However, the patient is mildly demented and he is malnourished and quite fragile. We will discuss further with his family as to what treatment they would like to pursue. Their options would be an IV antibiotic since there is no pressure from any abnormality of the aortic valve that is aortic insufficiency or embolization or underwent a redo aortic valve replacement emphasizing the possibility infected by prosthetic valve. If this is the case, we have to follow with Infectious Diseases to continue IV antibiotics and perhaps place him in [facility] for 2 weeks in order to optimize medical management and improve nutrition. His albumin and prealbumin are low. If the patient decides no surgical treatment, then we will place a PICC line and continue with IV antibiotics. We will be following closely. TID: [id number] RECEIPT: [id number]
== END 2024-12-05 21:05 | DRG 871 ==
LOC: EDH 20:00 → EDHIP 21:33 → 4CH 23:07
PROVIDERS: ADMIT Internal Medicine; ATTEND Internal Medicine
PROC: B24BZZ4 Ultrasonography of Heart with Aorta, Transesophageal (ICD-10-PCS; 2024-11-20)
PROC: 4A023N8 Measurement of Cardiac Sampling and Pressure, Bilateral, Percutaneous Approach (ICD-10-PCS; 2024-11-28)
PROC: B2111ZZ Fluoroscopy of Multiple Coronary Arteries using Low Osmolar Contrast (ICD-10-PCS; 2024-11-28)
PROC: B2151ZZ Fluoroscopy of Left Heart using Low Osmolar Contrast (ICD-10-PCS; 2024-11-28)
PROC: 05HY33Z Insertion of Infusion Device into Upper Vein, Percutaneous Approach (ICD-10-PCS; 2024-11-30)
PROC: B54MZZA Ultrasonography of Right Upper Extremity Veins, Guidance (ICD-10-PCS; 2024-11-30)
PROC: 30233N1 Transfusion of Nonautologous Red Blood Cells into Peripheral Vein, Percutaneous Approach (ICD-10-PCS; principal; 2024-12-02)
PROC: 0DB68ZX Excision of Stomach, Via Natural or Artificial Opening Endoscopic, Diagnostic (ICD-10-PCS; 2024-12-04)
PROC: 0DBN8ZX Excision of Sigmoid Colon, Via Natural or Artificial Opening Endoscopic, Diagnostic (ICD-10-PCS; 2024-12-05)
DX: A41.1 Sepsis due to other specified staphylococcus (principal); E43 Unspecified severe protein-calorie malnutrition; I21.A1 Myocardial infarction type 2; I33.0 Acute and subacute infective endocarditis; E87.20 Acidosis, unspecified; I13.0 Hypertensive heart and chronic kidney disease with heart failure and stage 1 through stage 4 chronic kidney disease, or unspecified chronic kidney disease; D69.6 Thrombocytopenia, unspecified; I25.10 Atherosclerotic heart disease of native coronary artery without angina pectoris; I50.9 Heart failure, unspecified; E11.65 Type 2 diabetes mellitus with hyperglycemia; B96.89 Other specified bacterial agents as the cause of diseases classified elsewhere; Z20.822 Contact with and (suspected) exposure to COVID-19; B95.7 Other staphylococcus as the cause of diseases classified elsewhere; D50.9 Iron deficiency anemia, unspecified; E11.22 Type 2 diabetes mellitus with diabetic chronic kidney disease; E78.00 Pure hypercholesterolemia, unspecified; E87.6 Hypokalemia; F03.90 Unspecified dementia, unspecified severity, without behavioral disturbance, psychotic disturbance, mood disturbance, and anxiety; G89.29 Other chronic pain; K31.89 Other diseases of stomach and duodenum; D72.829 Elevated white blood cell count, unspecified; I35.2 Nonrheumatic aortic (valve) stenosis with insufficiency; N18.9 Chronic kidney disease, unspecified; Z79.2 Long term (current) use of antibiotics; Z79.82 Long term (current) use of aspirin; Z83.3 Family history of diabetes mellitus; Z86.73 Personal history of transient ischemic attack (TIA), and cerebral infarction without residual deficits; Z68.21 Body mass index [BMI] 21.0-21.9, adult; Z95.1 Presence of aortocoronary bypass graft; I25.2 Old myocardial infarction; Z95.3 Presence of xenogenic heart valve
CPT/HCPCS: 36415; 36430; 36569; 43239; 70450; 71045; 71275; 72130; 72131; 78306; 80048; 80053; 80170; 80202; 81001; 82550; 82607; 82746; 82948; 83036; 83540; 83550; 83605; 83735; 83880; 84100; 84145; 84484; 85014; 85018; 85025; 85027; 85610; 85730; 86757; 86850; 86900; 86901; 86923; 87040; 87086; 87186; 87635; 87804; 87880; 92610; 93005; 93306; 93308; 93312; 93325; 93460; 93567; 99285; A4606; A9556; C1760; C1893; C1894; G0378; J1580; J1644; J1756; J1815; J1938; J2003; J2250; J2405; J2543; J2704; J3010; J3373; J3475; J3490; J7030; P9016; Q9967; A4215; A4222; A4223; A4620; C1751; J3370; Q9965